=== PATIENT | female | born 1955 | race Caucasian/White ===

== ENCOUNTER 2023-10-19 13:02 | Outpatient (CLI) | payer MEDICARE, BC, SELFPAY ==
[2023-10-19 15:38] LABS: Absolute Lymphocyte Count 1.66 X10^3/uL (0.83-4.51); Absolute Neutrophil Count 5.2 X10^3/uL (2.0-7.7); Basophil# 0.04 X10^3/uL; Basophil% 0.5 % (0-1); Eosinophil# 0.04 X10^3/uL; Eosinophils% 0.5 % (0-5); Hematocrit 45.8 % (37-47); Hemoglobin 15.5 g/dL (12.0-15.0); Lymphocyte # 1.66 X10^3/ul (0.83-4.51); Mean Corp Hgb Conc 33.8 g/dL (32-36); Mean Corpuscular Hgb 32.2 pg (27.0-32.0); Mean Corpuscular Volume 95.2 fL (81-99); Mean Platelet Vol. 10.5 fl (6.2-12.0); Monocyte# 0.61 X10^3/uL; Monocyte% 8.1 % (0-10); NRBC Flagged by Analyzer 0 % (0-5); Neutrophil # 5.17 X10^3/uL (2.7-7.7); Neutrophil % 68.6 % (47-70); Platelet Count 293 K/mm3 (150-450); RBC Distribution Width CV 13.9 % (11.6-14.6); RBC Distribution Width SD 48.6 fl (35.1-43.9); Red Blood Count 4.81 M/mm3 (4.2-5.4); White Blood Count 7.5 K/mm3 (4.4-11.0)
[2023-10-19 15:56] LABS: Vitamin B12 582 pg/mL (211-911)
[2023-10-19 16:22] LABS: ALB/GLOB Ratio 1.1 RATIO (0.9-2.4); AST(SGOT) 28 U/L (15-37); Alanine Aminotransfer ALT/SGPT 71 U/L (13-56); Albumin, Serum 3.6 g/dL (3.2-5.0); Alkaline Phosphatase 174 U/L (45-117); Anion Gap 6 (5-15); BUN 9 mg/dL (7-18); BUN/Creat Ratio 16.6 RATIO (10-20); Calcium,Total 9.3 mg/dL (8.5-10.1); Chloride 105 mmol/L (98-107); Creatinine, Serum 0.54 mg/dL (0.55-1.02); EST Glomerular Filtration Rate 118 mL/min (>60); Est Glom Filt Rate - Afr Amer 143 mL/min (>60); Globulin 3.4 g/dL (2.2-4.2); Glucose 122 mg/dL (74-106); Sodium Level 139 mmol/L (136-145)
[2023-10-22 16:10] LABS: Lyme IgG P18 Ab Absent (.); Lyme IgG P23 Ab Absent (.); Lyme IgG P28 Ab Absent (.); Lyme IgG P30 Ab Absent (.); Lyme IgG P39 Ab Present (.); Lyme IgG P41 Ab Present (.); Lyme IgG P45 Ab Absent (.); Lyme IgG P58 Ab Present (.); Lyme IgG P66 Ab Absent (.); Lyme IgG P93 Ab Present (.); Lyme IgG WB Interpretation Negative (.); Lyme IgM P23 Ab Absent (.); Lyme IgM P39 Ab Absent (.); Lyme IgM P41 Ab Absent (.); Lyme IgM WB Interpretation Negative (.)
[2023-10-26 16:09] LABS: B. henselae IgG Negative titer (Neg:<1:320); B. henselae IgM Negative titer (Neg:<1:100); B. quintana IgG Negative titer (Neg:<1:320); B. quintana IgM Negative titer (Neg:<1:100); Mycoplasma Pneum AB IgG < 100 U/mL (0-99); Mycoplasma pneum. AB IgM < 770 U/mL (0-769); VITAMIN B6 2.5 ug/L (3.4-65.2); Vitamin B1, Thiamine 94.7 nmol/L (66.5-200.0)
== END 2023-10-19 23:59 | disposition home or self-care (01) ==
PROVIDERS: Referring Provider Nurse Practitioner Family; Visit Provider Nurse Practitioner Family
DX: A69.20 Lyme disease, unspecified (principal); B60.00 Babesiosis, unspecified; R41.89 Other symptoms and signs involving cognitive functions and awareness; R29.818 Other symptoms and signs involving the nervous system; R61 Generalized hyperhidrosis; R29.6 Repeated falls; R41.3 Other amnesia; R13.12 Dysphagia, oropharyngeal phase; G47.00 Insomnia, unspecified; F41.9 Anxiety disorder, unspecified; R51.9 Headache, unspecified; R53.0 Neoplastic (malignant) related fatigue; R63.4 Abnormal weight loss
CPT/HCPCS: 36415; 80053; 82607; 82746; 84207; 84425; 85025; 86611; 86617; 86738

== ENCOUNTER → 2024-03-02 | Outpatient (CLI) | payer MEDICARE, BC, SELFPAY ==
[2024-03-02 15:42] LABS: Absolute Lymphocyte Count 1.76 X10^3/uL (0.83-4.51); Basophil# 0.04 X10^3/uL; Basophil% 0.7 % (0-1); Eosinophils% 1.8 % (0-5); Hematocrit 44.2 % (37-47); Hemoglobin 14.7 g/dL (12.0-15.0); Lymphocyte # 1.76 X10^3/ul (0.83-4.51); Lymphocyte % 32.2 % (19-41); Mean Corp Hgb Conc 33.3 g/dL (32-36); Mean Corpuscular Hgb 32.1 pg (27.0-32.0); Mean Corpuscular Volume 96.5 fL (81-99); Mean Platelet Vol. 10.1 fl (6.2-12.0); Monocyte# 0.49 X10^3/uL; NRBC Flagged by Analyzer 0 % (0-5); Neutrophil # 3.03 X10^3/uL (2.7-7.7); Neutrophil % 55.4 % (47-70); Platelet Count 269 K/mm3 (150-450); RBC Distribution Width CV 13.2 % (11.6-14.6); RBC Distribution Width SD 47.1 fl (35.1-43.9); Red Blood Count 4.58 M/mm3 (4.2-5.4); White Blood Count 5.5 K/mm3 (4.4-11.0)
[2024-03-02 16:40] LABS: ALB/GLOB Ratio 0.9 RATIO (0.9-2.4); AST(SGOT) 21 U/L (15-37); Alanine Aminotransfer ALT/SGPT 37 U/L (13-56); Albumin, Serum 3.4 g/dL (3.2-5.0); Alkaline Phosphatase 169 U/L (45-117); Anion Gap 9 (5-15); BUN 12 mg/dL (7-18); BUN/Creat Ratio 20.4 RATIO (10-20); Calcium,Total 9.2 mg/dL (8.5-10.1); Chloride 109 mmol/L (98-107); Creatinine, Serum 0.59 mg/dL (0.55-1.02); EST Glomerular Filtration Rate 108 mL/min (>60); Est Glom Filt Rate - Afr Amer 130 mL/min (>60); Ferritin 112 ng/mL (8-252); Globulin 3.6 g/dL (2.2-4.2); Glucose 109 mg/dL (74-106); Iron 91 ug/dL (50-170); Potassium 3.6 mmol/L (3.5-5.1); Sodium Level 143 mmol/L (136-145)
[2024-03-06 16:07] LABS: G6PD Quant Test 253 (127-427); Red Blood Cell Count Test/G6PD 4.71 x10E6/uL (3.77-5.28)
== END | disposition home or self-care (01) ==
LOC: BIMLAB 13:20
PROVIDERS: Referring Provider Nurse Practitioner Family; Visit Provider Nurse Practitioner Family
DX: A69.20 Lyme disease, unspecified (principal); R41.89 Other symptoms and signs involving cognitive functions and awareness; A44.0 Systemic bartonellosis; B60.00 Babesiosis, unspecified
CPT/HCPCS: 36415; 80053; 82728; 82955; 83540; 85025

== ENCOUNTER 2024-03-14 12:15 | Outpatient (CLI) | payer MEDICARE, BC, SELFPAY ==
[2024-03-14 15:52] LABS: T4 Free Direct 1.15 ng/dL (0.76-1.46); Thyroid Stim Hormone (TSH) 2.79 uIU/mL (0.358-3.74)
[2024-03-14 17:02] LABS: Vitamin D,25 Hydroxy 25.8 ng/mL
[2024-03-14 17:06] LABS: PTHIN 78.8 pg/mL (18.4-80.1)
[2024-03-16 16:10] LABS: GGTP 26 IU/L (0-60); Thyroglobulin Antibody < 1.0 IU/mL (0.0-0.9); Thyroid Peroxidase AB 11 IU/mL (0-34)
[2024-03-18 11:08] LABS: ANTINUCLEAR ANTIBODIES DIRECT Negative (Negative); Vitamin D 1,25-Dihydroxy 40.6 pg/mL (24.8-81.5)
== END 2024-03-14 23:59 | disposition home or self-care (01) ==
LOC: BIMLAB 12:16
PROVIDERS: Visit Provider Nurse Practitioner Family
DX: R74.01 Elevation of levels of liver transaminase levels (principal); A69.20 Lyme disease, unspecified; B60.00 Babesiosis, unspecified; R41.89 Other symptoms and signs involving cognitive functions and awareness; A44.0 Systemic bartonellosis; E55.9 Vitamin D deficiency, unspecified
CPT/HCPCS: 36415; 82306; 82652; 82977; 83970; 84439; 84443; 84481; 86038; 86225; 86235; 86376; 86800

== ENCOUNTER → 2024-06-24 | Outpatient (CLI) | payer MEDICARE, BC, SELFPAY ==
[2024-06-24 10:43] VITALS: BP 158/90; PULSE 90; RESP 16; O2SAT 97; BMI 29.0
== END | disposition home or self-care (01) ==
PROVIDERS: PCP Nurse Practitioner Family; Referring Provider Nurse Practitioner Family; Visit Provider Nurse Practitioner Family
DX: A44.0 Systemic bartonellosis (principal); B60.00 Babesiosis, unspecified; A69.22 Other neurologic disorders in Lyme disease
CPT/HCPCS: 36569

== ENCOUNTER → 2024-12-15 | Outpatient (CLI) | payer MEDICARE, BC, SELFPAY ==
[2024-12-15 16:43] LABS: Absolute Lymphocyte Count 1.99 X10^3/uL (0.83-4.51); Absolute Neutrophil Count 5.1 X10^3/uL (2.0-7.7); Basophil# 0.04 X10^3/uL; Basophil% 0.5 % (0-1); Eosinophil# 0.11 X10^3/uL; Eosinophils% 1.3 % (0-5); Lymphocyte # 1.99 X10^3/ul (0.83-4.51); Lymphocyte % 24.4 % (19-41); Mean Corp Hgb Conc 34.1 g/dL (32-36); Mean Corpuscular Hgb 32.3 pg (27.0-32.0); Mean Corpuscular Volume 94.6 fL (81-99); Mean Platelet Vol. 10.3 fl (6.2-12.0); Monocyte# 0.93 X10^3/uL; Monocyte% 11.4 % (0-10); NRBC Flagged by Analyzer 0 % (0-5); Neutrophil # 5.07 X10^3/uL (2.7-7.7); Neutrophil % 62.2 % (47-70); Platelet Count 316 K/mm3 (150-450); RBC Distribution Width CV 13.7 % (11.6-14.6); RBC Distribution Width SD 47.7 fl (35.1-43.9); Red Blood Count 4.65 M/mm3 (4.2-5.4); White Blood Count 8.2 K/mm3 (4.4-11.0)
[2024-12-15 17:58] LABS: ALB/GLOB Ratio 1.5 RATIO (0.9-2.4); AST(SGOT) 21 U/L (<=31); Alanine Aminotransfer ALT/SGPT 20 U/L (<=34); Albumin, Serum 4.1 g/dL (3.4-4.8); Alkaline Phosphatase 226 U/L (35-104); Anion Gap 12 (5-15); BUN 17 mg/dL (4-19); BUN/Creat Ratio 27.9 RATIO (10-20); Calcium,Total 9.8 mg/dL (7.6-11.0); Carbon Dioxide 22.7 mmol/L (21.0-32.0); Chloride 108 mmol/L (98-108); Creatinine, Serum 0.61 mg/dL (0.70-1.20); EST Glomerular Filtration Rate 96 (>60); Globulin 2.8 g/dL (2.2-4.2); Glucose 108 mg/dL (70-99); Potassium 4.4 mmol/L (3.3-5.1); Protein, Total 6.8 g/dL (5.9-8.4); Sodium Level 143 mmol/L (133-145); Total Bilirubin 0.38 mg/dL (0.00-1.30)
[2024-12-15 18:59] LABS: CRP < 3.00 mg/L (0.0-3.0); Vitamin B12 456 pg/mL (180-914); Vitamin D,25 Hydroxy 12.8 ng/mL (30-100)
[2024-12-15 19:12] LABS: FOLATES,SERUM (FOLIC ACID) > 40.00 ng/mL (4.60-34.80)
[2024-12-15 20:37] LABS: Fibrinogen 394 mg/dl (203-444)
[2024-12-17 04:07] LABS: HOMOCYSTEINE 12.2 umol/L (0.0-17.2)
== END | disposition home or self-care (01) ==
LOC: BIMLAB 14:50
PROVIDERS: PCP Nurse Practitioner Family; Visit Provider Nurse Practitioner Family
DX: R63.4 Abnormal weight loss (principal); A69.20 Lyme disease, unspecified; R51.9 Headache, unspecified; R41.841 Cognitive communication deficit; R41.89 Other symptoms and signs involving cognitive functions and awareness; R44.3 Hallucinations, unspecified
CPT/HCPCS: 36415; 80053; 82306; 82607; 82746; 82784; 82785; 82787; 83090; 83695; 85025; 85384; 86140; 86658

== ENCOUNTER → 2025-04-11 | Outpatient (CLI) | payer MEDICARE, BC, SELFPAY ==
[2025-04-11 12:14] LABS: Mucous, Urine 0 SEEN /hpf (<or=2+); Red Blood Cells-Urine 0 SEEN /hpf (0-5)
[2025-04-11 12:42] LABS: Hematocrit 45.3 % (37-47); Hemoglobin 15.7 g/dL (12.0-15.0); Immature Granulocytes Count 0.020 X10^3/uL (0.0-0.0); Mean Corp Hgb Conc 34.7 g/dL (32-36); Mean Corpuscular Volume 95.0 fL (81-99); Mean Platelet Vol. 9.8 fl (6.2-12.0); NRBC Flagged by Analyzer 0 % (0-5); Platelet Count 258 K/mm3 (150-450); RBC Distribution Width CV 13.2 % (11.6-14.6); RBC Distribution Width SD 46.3 fl (35.1-43.9); Red Blood Count 4.77 M/mm3 (4.2-5.4); White Blood Count 6.5 K/mm3 (4.4-11.0)
[2025-04-11 13:28] LABS: AST(SGOT) 24 U/L (<=31); Alanine Aminotransfer ALT/SGPT 20 U/L (<=34); Albumin, Serum 3.9 g/dL (3.4-4.8); Alkaline Phosphatase 211 U/L (35-104); Anion Gap 12 (5-15); BUN 12 mg/dL (4-19); BUN/Creat Ratio 22.2 RATIO (10-20); Calcium,Total 9.5 mg/dL (7.6-11.0); Carbon Dioxide 22.0 mmol/L (21.0-32.0); Chloride 106 mmol/L (98-108); Globulin 2.9 g/dL (2.2-4.2); Glucose 112 mg/dL (70-99); Potassium 4.2 mmol/L (3.3-5.1)
[2025-04-11 14:16] LABS: Color, Urine Yellow (Yellow); Glucose, Dipstick Normal (Normal); Ketone-Dipstick 5 mg/dl (Negative); Leukocyte Esterase-Dipstick 500 /ul (Negative); Nitrite-Dipstick Positive (Negative); Occult Blood-Urine 25 /ul (Negative); Protein-Dipstick 30 mg/dl (Negative); Specific Gravity, Urine 1.025 (1.002-1.030); Urine Bilirubin Dipstick Negative (Negative)
[2025-04-11 14:33] LABS: Squamous Epithelial Cells - UA 5-10 SEEN /hpf (5-10)
--- OUTSIDE RECORDS SUMMARY | 2025-04-11 22:14 | XMS RPT_ITS | CCD ---
Author Organization [facility] Care Team Providers Care Outbound Sales Representative Name Role Phone Carmela Rossi Unavailable Hilty, Francine Primary Care Provider Hilty INTERNAL MEDICINE NURSE PRACTITIONER, Francine Primary Care Provider Hilty INTERNAL MEDICINE NURSE PRACTITIONER, Francine Primary Care Provider [phone] HILTY, FRANCINE Primary Care Unavailable VILMA ZHAO Attending Unavailabl e Hilty INTERNAL MEDICINE NURSE PRACTITIONER, Francine Primary Care Provider [phone] Tomas RNNitza Unavailable Unavailable Tomas GOYAL, Nitza New Unavailable Unavailable Hilty INTERNAL MEDICINE NURSE PRACTITIONER, Francine Primary Care Provider [phone] Hilty INTERNAL MEDICINE NURSE PRACTITIONER, Francine Primary Care Provider GERALDINE VELARDE Attending Unavailabl e HILTY, FRANCINE Primary Care Unavailable ERNA ROMERO Attending Unavailabl e HILTY, FRANCINE Primary Care Unavailable SYSTEM, PROVIDER NOT IN Referring Unavaila ble SYSTEM, PROVIDER NOT IN Attending Unavaila ble HILTY, FRANCINE Primary Care Unavailable HILTY, FRANCINE Primary Care Unavailable AMAYA CHING Attending Unavailable KRYS LUCERO Attending Unavailable HILTY, FRANCINE Primary Care Unavailable HILTY, FRANCINE Primary Care Unavailable KRYS LUCERO Attending Unavailable KRYS LUCERO Attending Unavailable HILTY, FRANCINE Primary Care Unavailable HILTY, FRANCINE Primary Care Unavailable FABIÁN RODRIGUEZ Consulting Unavaila ble ALBERTA WANG Attending Unavail able ALBERTA WANG Admitting Unavail able LEILANI LOWE Consulting Unavailable HILTY, FRANCINE Primary Care Unavailable HILTY, FRANCINE Admitting Unavailable MARKUS FERRARO Admitting Unavailable MARKUS EFRRARO Attending Unavailable MARKUS FERRARO Primary Care Unavailable ORLANDOENER, KRYS BALDOMERO Admitting Unavailable MICHENER, KRYS BALDOMERO Attending Unavailable MICHENER, KRYS INTERNAL MEDICINE NURSE PRACTITIONER Primary Care Unavailable BETSY FARR Attending Unavailable HILTY, FRANCINE Primary Care Unavailable MICHENER, KRYS Referring Unavailable ALBERTA WANG Referring Unavail able HILTY, FRANCINE Primary Care Unavailable Alcantar PA-C, Dominique Blanchard Primary Care Provider Hilty INTERNAL MEDICINE NURSE PRACTITIONER, Francine Primary Care Provider HRINA FARNSWORTH Attending Unavailable HILTY, FRANCINE Primary Care Unavailable RIGO GRAVES Attending Unavailable ALCANTAR, DOMINIQUE FULLER Primary Care Unavailable HILTY, FRANCINE Primary Care Unavailable HILTY, FRANCINE Attending Unavailable ALCANTAR, DOMINIQUE FULLER Attending Unavailable ALCANTAR, DOMINIQUE FULLER Primary Care Unavailable HILTY, FRANCINE Primary Care Unavailable HILTY, FRANCINE Attending Unavailable HILTY, FRANCINE Primary Care Unavailable HILTY, FRANCINE Attending Unavailable HILTY, FRANCINE Primary Care Unavailable HILTY, FRANCINE Attending Unavailable HILTY, FRANCINE Primary Care Unavailable HILTY, FRANCINE Attending Unavailable ALCANTAR, DOMINIQUE FULLER Primary Care Unavailable ALCANTAR, DOMINIQUE FULLER Attending Unavailable ALCANTAR, DOMINIQUE FULLER Attending Unavailable ALCANTAR, DOMINIQUE FULLER Primary Care Unavailable ALCANTAR, DOMINIQUE FULLER Attending Unavailable ALCANTAR, DOMINIQUE FULLER Primary Care Unavailable HILTY, FRANCINE Referring Unavailable HILTY, FRANCINE Admitting Unavailable HILTY, FRANCINE Primary Care Unavailable SAI MARIE Attending Unavailable HILTY, FRANCINE Referring Unavailable HILTY, FRANCINE Admitting Unavailable HILTY, FRANCINE Primary Care Unavailable YOAV ADAME Attending [facility] Physician, No Pcp Primary Care Provider Unavaila ble Gittins DO, Jori Unavailable Unavailable Gittins DO, Jori Unavailable Unavailable Carmela Rossi MD Primary Care Provider [phone] Gittins DO, Jori Unavailable Unavailable AD DO~[id number], AD Martines Attending Unavailable DECLINED, DR Primary Care Unavailable DECLINED, DR Consulting Unavailable AD DO~[id number], AD Martines Admitting Unavailable DECLINED, Consulting Unavailable ADWINNIE KNOX DO Consulting Unavailable AD WINNIE FLORENTINO Consulting Unavailable NONE, NONE Primary Care Unavailable NONE, NONE Consulting Unavailable JAILENE PENA~[id number], JAILENE Echavarria Admitting Unavailable JAILENE PENA~[id number], JAILENE Echavarria Attending Unavailable DECLINED, DR Consulting Unavailable TAYLOR REED POLISHER, SAM Consulting Unavailab le TAYLOR REED POLISHER, SAM Consulting Unavailab le Jori Arana DO Unavailable Unavailable Gittins, Jori Echavarria Attending Unavailable Gittins, Jori Echavarria Referring Unavailable Gittins, Jori Echavarria Attending Unavailable Gittins, Jori Echavarria Referring Unavailable Gittins, Jori Echavarria Attending Unavailable Gittins, Jori Echavarria Referring Unavailable Gittins, Jori Echavarria Attending Unavailable Gittins, Jori Echavarria Referring Unavailable Gittins, Jori Echavarria Attending Unavailable Gittins, Jori Echavarria Referring Unavailable Gittins, Jori Echavarria Attending Unavailable Gittins, Jori Echavarria Referring Unavailable Gittins, Jori Echavarria Attending Unavailable Gittins, Jori Echavarria Referring Unavailable Gittins, Jori Echavarria Attending Unavailable Gittins, Jori Echavarria Referring Unavailable Gittins, Jori Echavarria Attending Unavailable Gittins, Jori Echavarria Referring Unavailable Gittins, Jori Echavarria Attending Unavailable Gittins, Jori Echavarria Referring Unavailable Gittins, Jori Echavarria Attending Unavailable Gittins, Jori Echavarria Referring Unavailable Jazmine LANDSCAPE FOREMAN-C, Krys K Primary Care Provider Un available Jazmine LANDSCAPE FOREMAN-C, Krys K Attending Provider Unava ilable PHYSICIAN, NO PCP Primary Care Unavailable ÓSCAR CARVALHO Attending Unavailable PHYSICIAN, NO PCP Primary Care Unavailable Jazmine LANDSCAPE FOREMAN, Krys K Attending Unavailabl e Jazmine LANDSCAPE FOREMAN, Krys K Referring Unavailabl e Jazmine LANDSCAPE FOREMAN, Krys K Attending Unavailabl e Jazmine LANDSCAPE FOREMAN, Krys K Primary Care Unavailabl e Jazmine LANDSCAPE FOREMAN, Krys K Attending Unavailabl e Jazmine LANDSCAPE FOREMAN, Krys K Referring Unavailabl e Jazmine LANDSCAPE FOREMAN, Krys K Attending Unavailabl e Jazmine LANDSCAPE FOREMAN, Krys K Primary Care Unavailabl e Cherri REED POLISHER-INTERNAL MEDICINE NURSE PRACTITIONER, Bhakti Brunson Primary Care Provider LYNDA VEGA Attending Unavailable HILALAN, FRANCINE Primary Care Unavailable LYNDA VEGA Referring Unavailable HILALAN, FRANCINE Primary Care Unavailable ALLISON ALLEN Referring Unavailable ALLISON ALLEN Attending Unavailable SELF, SELF Referring Unavailable HILALAN, FRANCINE Primary Care Unavailable LYNDA VEGA Attending Unavailable HILTY, FRANCINE Primary Care Unavailable LYNDA VEGA Referring Unavailable LYNDA VEGA Attending Unavailable HILTY, FRANCINE Primary Care Unavailable ALLISON ALLEN Referring Unavailable ALLISON ALLEN Attending Unavailable CONSULT, OTOLARYNGOLOGY/ENT Consulting Unav ailable KAUSHAL GREGORY Attending Unavailable HILTY, FRANCINE Primary Care Unavailable CONSULT, NEUROLOGY Consulting Unavailable GREY LINTON Attending Unavailable HILTY, FRANCINE Primary Care Unavailable HILTY, FRANCINE Primary Care Unavailable ALLISON ALLEN Attending Unavailable SELF, SELF Referring Unavailable HILTY, FRANCINE Primary Care Unavailable SELF, SELF Referring Unavailable JOE HERNANDES Attending Unavailable CHERRI, BHAKTI N Attending Unavailable CHERRI, BHAKTI N Primary Care Unavailable SELF, SELF Referring Unavailable ALLISON ALLEN Attending Unavailable SELF, SELF Referring Unavailable HILTY, FRANCINE Primary Care Unavailable SELF, SELF Referring Unavailable HILTY, FRACNINE Primary Care Unavailable KITA GARZA Attending Unavailable SELF, SELF Referring Unavailable HILTY, FRANCINE Primary Care Unavailable CHERRI, BHAKTI N Primary Care Unavailable SELF, SELF Referring Unavailable HILTY, FRANCINE Primary Care Unavailable ADELITA ROGEL Attending Unavailable SELF, SELF Referring Unavailable RHINA RAMIREZ Attending Unavailable SELF, SELF Referring Unavailable HILTY, FRANCINE Primary Care Unavailable LEATHA NGUYỄN K Referring Unavailable HILTY, FRANCINE Primary Care Unavailable ADRIAN JEAN Attending Unavailable SELF, SELF Referring Unavailable HILTY, FRANCINE Primary Care Unavailable ADRIAN JEAN Attending Unavailable SELF, SELF Referring Unavailable HILTY, FRANCINE Primary Care Unavailable ADRIAN EJAN Attending Unavailable Allergies Allergy Classification Reported Allergen(s) Allergy Type Date of Onset Reaction(s) Facility Aspirin (1 source) Aspirin Drug Allergy Shortness Of Breath [facility] Doxycycline (1 source) Doxycycline Drug Allergy Shortness Of Breath, Itching, Swelling, Rash [facility] Quinolones (antibiotic) (1 source) Ciprofloxacin Drug Allergy Hives [facility] Sulfamethoxazole / Trimethoprim (1 source) Sulfamethoxazole / Trimethoprim Drug Allergy Hives [facility] (20 sources) ciprofloxacin; Translations: [CIPROFLOXACIN] Propensity to adverse reactions to drug Hives, Dyspnea, Shortness Of Breath [facility] (20 sources) sulfamethoxazole / trimethoprim; Translations: [SULFAMETHOXAZOLE-T RIMETHOPRIM] Propensity to adverse reactions to drug Hives, Itching, Rash [facility] (20 sources) Aspirin; Translations: [ASPIRIN] Drug Allergy Shortness Of Breath [facility] (20 sources) Doxycycline; Translations: [DOXYCYCLINE] Drug Allergy Shortness Of Breath, Itching, Swelling, Rash, Dizzy/Vertigo [facility] (19 sources) Sulfamethoxazole / Trimethoprim Drug Allergy [facility] (11 sources) Sulfonamides (Antibiotic); Translations: [SULFA (SULFONAMIDE ANTIBIOTICS)] Propensity to adverse reactions to drug Unknown [facility] (4 sources) Sulfonamides (Antibiotic); Translations: [Sulfa (Sulfonamide Antibiotics)] propensity to adverse reactions to drug [facility] (1 source) Ciprofloxacin Drug Allergy [facility] (1 source) Sulfamethoxazole Drug Allergy Itching [facility] (1 source) Trimethoprim Drug Allergy Itching [facility] (1 source) Ciprofloxacin Drug Allergy 024 [facility] (1 source) Sulfamethoxazole Drug Allergy 024 [facility] (1 source) Trimethoprim Drug Allergy 024 [facility] Medications Current Medications Medication Drug Class(es) Dates Sig (Normalized) Sig (Original) amoxicillin 875 mg oral tablet (2 sources) Penicillin-class Antibacterial Start: 07-20-2024 End: 07-30-2024 take 1 tablet by mouth every twelve hours amoxicillin 875 MG tablet Take 1 tablet by mouth every 12 hours for 10 days. 20 tablet 07/20/2024 07/30/2024 Active Start: 09-10-2023 take 4 capsules by m outh twice daily amoxicillin (AMOXIL) 500 MG capsule TAKE 4 CAPSULE BY MOUTH TWICE A DAY 0 09/10/2023 Active amoxicillin 875 mg / clavulanate 125 mg oral tablet (2 sources) Penicillin-class Antibacterial Start: 08-08-2024 End: 08-18-2024 take 1 tablet by mouth twice daily amoxicillin-clavulanate (AUGMENTIN) 875-125 mg per tablet Take 1 (one) tablet by mouth 2 (two) times a day for 10 days . 20 tablet 08/08/2024 08/18/2024 Active azithromycin 250 mg oral tablet (20 sources) Macrolide Antimicrobial Start: 09-05-2024 End: 09-10-2024 Azithromycin 250 MG tablet Take by mouth 2 tablets (500 mg) on Day 1, then 1 tablet (250 mg) daily on Days 2-5 6 tablet 09/05/2024 09/10/2024 Active Start: 07-13-2024 End: 09-27-2024 Azithromycin 500 MG Recon So ln 07/13/2024 09/27/2024 Discontinued take 1 tablet by dari th once daily AZITHROMYCIN ORAL Take 1 tablet by mouth daily . Active take 1 tablet by dari th once daily AZITHROMYCIN ORAL Take 1 tablet by mouth daily . 0 Active cefdinir 300 mg oral capsule (3 sources) Cephalosporin Antibacterial Start: 10-15-2021 End: 10-22-2021 take 1 capsule by mouth twice daily cefdinir (OMNICEF) 300 MG capsule Take 1 (one) capsule (300 mg total) by mouth 2 (two) times a day for 7 days . 14 capsule 1 10/15/2021 10/22/2021 Active Start: 10-26-2020 End: 11-05-2020 take 1 capsule by mouth twice daily cefdinir (OMNICEF) 300 MG capsule Indications: Urinary tract infection without hematuria, site unspecified Take 1 (one) capsule (300 mg total) by mouth 2 (two) times a day for 10 days . 20 capsule 0 10/26/2020 11/05/2020 Active cephalexin 500 mg oral capsule (20 sources) Cephalosporin Antibacterial Start: 12-18-2024 End: 12-25-2024 take 1 capsule by mouth four times daily cephalexin (KEFLEX) 500 mg capsule Take 1 capsule (500 mg total) by mouth 4 (four) times a day for 7 days. 28 each 12/18/2024 12/25/2024 Active Start: 07-30-2021 End: 08-06-2021 take 1 capsule by mouth four times daily cephALEXin (KEFLEX) 500 MG capsule Take 1 (one) capsule (500 mg total) by mouth 4 (four) times a day for 7 days . 28 capsule 0 07/30/2021 08/06/2021 Active take 1 tablet by dari th once daily CEPHALEXIN ORAL Take 1 tablet by mouth daily . Active take 1 tablet by dari once daily CEPHALEXIN ORAL Take 1 tablet by mouth daily . 0 Active ciprofloxacin 3 mg/ml / dexamethasone 1 mg/ml otic suspension (1 source) Corticosteroid, Quinolone Antimicrobial Start: 09-12-2018 End: 09-19-2018 ciprofloxacin-dexamethasone (CIPRODEX) otic suspension Administer 4 (four) drops to the right ear 2 (two) times a day for 7 days . 7.5 mL 0 09/12/2018 09/19/2018 Active citalopram 10 mg oral tablet (20 sources) Serotonin Reuptake Inhibitor Start: 11-07-2023 End: 12-07-2023 take 1 tablet by mouth once daily citalopram (CELEXA) 10 MG tablet Take 1 (one) tablet (10 mg total) by mouth daily . 30 tablet 2 11/11/2023 Active diclofenac sodium 0.01 mg/mg topical gel (8 sources) Nonsteroidal Anti-inflammator y Drug Start: 08-11-2023 Voltaren Arthritis Pain 1 % topical gel apply 2 gram topically 4 times every day to the affected area(s) - Active DISABILITY PLACARD (1 source) Start: 04-03-2025 End: 04-03-2026 DISABILITY PLACARD Indications: Dizziness , Hx of Lyme disease Start: 04/03/2025 Exp: 04/03/2026 1 Each 04/03/2025 04/03/2026 Active [id number] 0.3 ml EPINEPHrine 1 mg/ml auto-injector (20 sources) alpha-Adrenergic Agonist, beta-Adrenergic Agonist, Catecholamine Start: 10-29-2023 EPINEPHrine (EPIPEN) 0.3 mg/0.3 mL AtIn Indications: anaphylaxis USE DIRECTED NEEDED FOR ALLERGIC REACTION 10/29/2023 Active Handicapped Placard (4 sources) Start: 04-14-2023 Handicapped Placard USE 1 each for 3 months - Active DX - M70.61 Comment on above: DX - M70.61 meclizine hydrochloride 25 mg oral tablet (1 source) Antiemetic Start: 04-03-2025 take 1 tablet by mouth three times daily as needed for nausea Meclizine 25 MG tablet Indications: Dizziness Take 1 tablet by mouth 3 times daily as needed for Nausea / Vomiting. 270 tablet 04/03/2025 Active meloxicam 15 mg oral tablet (4 sources) Nonsteroidal Anti-inflammator y Drug Start: 06-30-2022 take 1 tablet by mouth once daily meloxicam 15 mg tablet take 1 tablet by oral route every day 15 MG - Active methylPREDNISolone 4 mg oral tablet (4 sources) Corticosteroid Start: 04-14-2023 Medrol (Juliocesar) 4 mg tablets in a dose pack take by oral route as directed per package instructions 0.00 - Active nystatin [id number] unt oral tablet (1 source) Polyene Antifungal Start: 09-09-2023 nystatin (MYCOSTATIN) 500,000 unit tablet omeprazole 40 mg delayed release oral capsule (1 source) Proton Pump Inhibitor Start: 12-18-2024 End: 12-28-2024 take 1 capsule by mouth once daily omeprazole (PriLOSEC) [address] capsule Take 1 capsule (40 mg total) by mouth 1 (one) time each day for 10 days. Do not crush or chew. 10 each 12/18/2024 12/28/2024 Active ondansetron 4 mg disintegrating oral tablet (4 sources) Serotonin-3 Receptor Antagonist Start: 12-18-2024 End: 12-23-2024 apply 1 tablet topically every eight hours for nausea ondansetron ODT (ZOFRAN-ODT) 4 mg disintegrating tablet Indications: Abdominal pain, epigastric , Nausea and vomiting, unspecified vomiting type , Urinary tract infection without hematuria, site unspecified Dissolve 1 tablet (4 mg total) on top of the tongue every 8 (eight) hours if needed for nausea for up to 5 days. 15 each 12/18/2024 12/23/2024 Active Start: 12-18-2024 End: 12-18-2024 4 mg, intravenous, Once, On Thu12/18/24 at 0043, For 1 dose Start: 09-28-2024 End: 09-28-2024 take 4 mg by mouth once 4 mg, oral, Once, On 09/14 at 1859, For 1 dose Start: 09-28-2024 End: 10-03-2024 apply 1 tablet topically every eight hours for nausea ondansetron ODT (ZOFRAN-ODT) 4 mg disintegrating tablet Indications: Closed displaced fracture of cuboid of left foot, initial encounter Dissolve 1 tablet (4 mg total) on top of the tongue every 8 (eight) hours if needed for nausea or vomiting for up to 5 days. 15 tablet 09/28/2024 10/03/2024 Active prednisoLONE acetate 10 mg/ml ophthalmic suspension (2 sources) Corticosteroid Start: 09-25-2020 End: 10-05-2020 prednisoLONE acetate (PRED FORTE) 1 % ophthalmic suspension Administer 1 (one) drop to the right eye 4 (four) times a day for 10 days . 5 mL 0 09/25/2020 10/05/2020 Active Start: 09-11-2020 End: 09-21-2020 prednisoLONE acetate (PRED F ORTE) 1 % ophthalmic suspension Administer 1 (one) drop into the left eye 4 (four) times a day for 10 days . 5 mL 0 09/11/2020 09/21/2020 Active QUEtiapine 50 mg oral tablet (20 sources) Atypical Antipsychotic Start: 11-11-2023 End: 11-11-2023 take 1 tablet by mouth once daily QUEtiapine (SEROQUEL) 50 MG tablet Take 1 (one) tablet (50 mg total) by mouth nightly . 30 tablet 2 11/11/2023 Active Start: 11-06-2023 End: 12-06-2023 take 1 tablet by mouth once daily QUEtiapine (SEROQUEL) 25 MG tablet Take 1 (one) tablet (25 mg total) by mouth nightly . 30 tablet 0 11/06/2023 11/11/2023 Discontinued sertraline 50 mg oral tablet (4 sources) Serotonin Reuptake Inhibitor Start: 08-08-2024 End: 08-08-2025 take 1 tablet by mouth once daily sertraline (ZOLOFT) 50 MG tablet Take 1 (one) tablet (50 mg total) by mouth daily . 30 tablet 3 08/08/2024 08/08/2025 Active Completed/Discontinued Medications Medication Drug Class(es) Dates Sig (Normalized) Sig (Original) acetaminophen 325 mg oral tablet (1 source) Start: 03-07-2025 End: 03-07-2025 take 1 tablet by mouth every six hours as needed 650 mg, Oral, EVERY 6 HOURS NEEDED, Starting on Thu03/07/25 at 0111, Until Thu03/07/25 at 1855, Mild Pain, Oral temp > 100.4 F, Headaches, Maximum dose of acetaminophen is 4000 mg from all sources in 24 hours. acetaminophen 325 mg / HYDROcodone bitartrate 5 mg oral tablet (2 sources) Opioid Agonist Start: 09-28-2024 End: 09-28-2024 take 1 tablet by mouth once 1 tablet, oral, Once, On Thu09/28/24 at 1859, For 1 dose Start: 09-28-2024 End: 10-01-2024 HYDROcodone-acetaminophen (N ORCO) 5-325 mg per tablet Indications: Closed displaced fracture of cuboid of left foot, initial encounter Take 1 tablet by mouth every 6 (six) hours if needed for severe pain for up to 3 days. NO DRIVING OR OPERATING HEAVY MACHINERY WHILE TAKING THIS MEDICATION. Max Daily Amount: 4 tablets 12 tablet 09/28/2024 10/01/2024 Active aluminum hydroxide 40 mg/ml / magnesium hydroxide 40 mg/ml / simethicone 4 mg/ml oral suspension (2 sources) Start: 03-07-2025 End: 03-07-2025 take 30 mL by mouth every six hours as needed 30 mL, Oral, EVERY 6 HOURS NEEDED, Starting on Thu03/07/25 at 0110, Until Thu03/07/25 at 1855, Indigestion, Per 5 mL is equivalent to: (Alum-Mag Hydroxide 200-225 mg and Simethicone 20 mg) and (Alum-Mag Hydroxide 200-200 mg and Simethicone 20 mg) Start: 12-18-2024 take 15 mL by mouth four times daily aluminum-magnesium hydroxide-simethicone (MAALOX) 200-200-20 mg/5 mL suspension Take 15 mL by mouth 4 (four) times a day if needed for indigestion or cramping (before meals). 118 mL 12/18/2024 Active atovaquone 150 mg/ml oral suspension (9 sources) Antimalarial, Antiprotozoal Start: 10-24-2024 End: 04-06-2025 take 5 mL by mouth twice daily atovaquone 750 MG/5ML Suspension oral suspension Take 5 mL by mouth 2 times daily. 10/24/2024 04/06/2025 Discontinued (Therapy completed) Start: 10-02-2023 take 5 mL by mouth twice daily atovaquone (MEPRON) 750 mg/5 mL suspension TAKE 5 MLS BY MOUTH TWICE A DAY 0 10/02/2023 Active atovaquone 250 mg / proguanil hydrochloride 100 mg oral tablet (1 source) Antimalarial, Antiprotozoal Start: 03-07-2025 End: 03-07-2025 take 2 tablets by mouth twice daily at mealtime, then take 1 tablet by mouth every hour 2 tablet, Oral, 2 TIMES DAILY WITH MEALS, First dose on Thu03/07/25 at 0800, Until Discontinued, If vomiting occurs within 1 hour of administration, dose should be repeated. Tablets may be crushed. calcium chloride 0.0014 meq/ml / potassium chloride 0.004 meq/ml / sodium chloride 0.103 meq/ml / sodium lactate 0.028 meq/ml injectable solution (2 sources) Start: 09-25-2020 End: 09-25-2020 take 50 mL intravenous route every hour 50 mL/hr, Intravenous, Continuous, Starting Thu09/25/20 at 1000, Pre-Procedure Start: 09-11-2020 End: 09-11-2020 take 50 mL intravenous route every hour 50 mL/hr, Intravenous, Continuous, Starting Thu09/11/20 at 0700, Pre-Procedure cefepime 2000 mg injection (4 sources) Cephalosporin Antibacterial Start: 08-26-2024 End: 11-15-2024 ceFEPIme 2 g [facility] 08/26/2024 11/15/2024 Discontinued cefTRIAXone 100 mg/ml injectable solution (20 sources) Cephalosporin Antibacterial Start: 07-12-2024 End: 09-27-2024 cefTRIAXone 10 g [facility] 07/12/2024 09/27/2024 Discontinued Start: 04-19-2024 End: 04-18-2024 2 g, Intravenous, Daily, [facility] dose on Thu04/19/24 at 0600 Start: 04-17-2024 End: 04-16-2024 2 g, Intravenous, Daily, [facility] dose on Thu04/17/24 at 0600 Start: 04-17-2024 End: 04-16-2024 2 g, Intravenous, Daily, [facility] dose on Thu04/17/24 at 0600 Start: 04-17-2024 End: 04-16-2024 2 g, Intravenous, Daily, [facility] dose on 04/17/24 at 0600 Start: 04-17-2024 End: 04-16-2024 2 g, Intravenous, Daily, [facility] dose on 04/17/24 at 0600 Start: 04-17-2024 End: 04-16-2024 2 g, Intravenous, Daily, [facility] dose on 04/17/24 at 0600 Start: 04-17-2024 End: 04-16-2024 2 g, Intravenous, Daily, [facility] dose on 04/17/24 at 0600 Start: 04-16-2024 cefTRIAXone 2 gram SolR Infuse 2 g into a venous catheter once daily. 04/16/2024 Active End: 11-28-2019 inject 2000 mg by intramuscular injection every twenty-four hours cefTRIAXone IM (ROCEPHIN) 350 mg/ml injection Inject 2,000 mg into the shoulder, thigh, or buttocks daily. 0 11/28/2019 Discontinued (Therapy completed) take 2000 mg by intr amuscular injection every twenty-four hours cefTRIAXone IM (ROCEPHIN) 350 mg/ml injection Inject 2,000 mg into the shoulder, thigh, or buttocks daily. Active cefTRIAXone (ROCEPHIN) IV syringe 1 g (1 source) Start: 12-18-2024 End: 12-18-2024 1 g, intravenous, Administer over 3 Minutes, Once, On 12/18/24 at 0233, For 1 dose, Do not administer simultaneously with any calcium containing solutions via a Y-site in any patient., Indication: Urinary Tract/Genitourinary cefuroxime 500 mg oral tablet (8 sources) Cephalosporin Antibacterial Start: 10-24-2024 End: 04-03-2025 take 1 tablet by mouth twice daily cefUROXime 500 MG tablet Take 1 tablet by mouth 2 times daily. 10/24/2024 04/03/2025 Discontinued (Therapy completed) cholestyramine resin 4000 mg powder for oral suspension (9 sources) Bile Acid Sequestrant Start: 10-24-2024 End: 04-06-2025 Cholestyramine 4 GM/DOSE Powder MIX 4 GRAMS IN BEVERAGE AND DRINK FOUR TIMES DAILY 10/24/2024 04/06/2025 Discontinued (Therapy completed) Start: 10-02-2023 cholestyramine (QUESTRAN) 4 gram powder MIX 4 GRAMS IN BEVERAGE AND DRINK TWICE DAILY 0 10/02/2023 Active 24 hr clarithromycin 500 mg extended release oral tablet (5 sources) Macrolide Antimicrobial Start: 06-10-2012 End: 07-20-2024 CLARITHROMYCIN XL 500 MG PO tab XL 2 times daily. 06/10/2012 07/20/2024 Discontinued (Therapy completed) clotrimazole 10 mg/ml topical solution (3 sources) Azole Antifungal Start: 09-27-2024 End: 11-15-2024 clotrimazole 1 % Solution Indications: Otomycosis Instill 5 drops into both ears twice daily x 14 days. 15 mL 09/27/2024 11/15/2024 Discontinued codeine phosphate 2 mg/ml / guaiFENesin 20 mg/ml oral solution (5 sources) Opioid Agonist Start: 09-05-2024 End: 11-15-2024 take 5 mL by mouth every six hours as needed for cough guaiFENesin-codeine 100-10 MG/5ML Solution Indications: Acute cough , Bronchitis Take 5 mL by mouth every 6 hours as needed for Cold Symptoms or Cough for up to 7 days. 118 mL 09/05/2024 11/15/2024 Discontinued CUSTOM MEDICATION (10 sources)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 Differential Normal [facility] Comment on above: Performed By: #### C PAUL, CMPN, CRP #### [facility] (DEFAULT) [address] [place] [address] 18111 Eosinophils (Bld) [#/Vol] 0.21 10*3/uL Normal 0.00-0.42 [facility] Comment on above: Performed By: #### C PAUL, CMPN, CRP #### [facility] (DEFAULT) [address] [place] [address] 19948 Eosinophils/100 WBC (Bld) 3.5 % Normal [facility] Comment on above: Performed By: #### C PAUL, CMPN, CRP #### [facility] (DEFAULT) [address] [place] [address] 52927 Hematocrit (Bld) [Volume fraction] 45.8 % High 34.9-44.3 [facility] Comment on above: Performed By: #### C PAUL, CMPN, CRP #### [facility] (DEFAULT) [address] [place] [address] 50675 Hemoglobin (Bld) [Mass/Vol] 15.4 g/dL High 11.4-15.2 [facility] Comment on above: Performed By: #### C PAUL, CMPN, CRP #### [facility] (DEFAULT) [address] [place] [address] 60395 Immature Grans % 0.7 % Normal [facility] Comment on above: Performed By: #### C PAUL, CMPN, CRP #### [facility] (DEFAULT) [address] [place] [address] 06179 Immature Grans Absolute 0.04 K/uL Normal <=0.08 [facility] Comment on above: Performed By: #### C PAUL, CMPN, CRP #### [facility] (DEFAULT) [address] [place] [address] 99970 Lymphocytes (Bld) [#/Vol] 1.82 10*3/uL Normal 1.16-3.51 [facility] Comment on above: Performed By: #### C PAUL, CMPN, CRP #### [facility] (DEFAULT) [address] [place] [address] 84308 Lymphocytes/100 WBC (Bld) 30.1 % Normal [facility] Comment on above: Performed By: #### C KB, CMPN, CRP #### [facility] (DEFAULT) [address] [place] [address] 77400 MCV (RBC) [Entitic vol] 95.4 fL Normal 79.6-97.7 [facility] Comment on above: Performed By: #### C KB, CMPN, CRP #### [facility] (DEFAULT) [address] [place] [address] 93539 Mean Cell Hgb 32.1 pg Normal 25.9-33.9 [facility] Comment on above: Performed By: #### C KB, CMPN, CRP #### [facility] (DEFAULT) [address] [place] [address] 94482 Mean Cell Hgb Conc 33.6 g/dL Normal 31.4-35.9 [facility] Comment on above: Performed By: #### C KB, CMPN, CRP #### [facility] (DEFAULT) [address] [place] [address] 72545 Monocytes (Bld) [#/Vol] 0.63 10*3/uL Normal 0.22-0.87 [facility] Comment on above: Performed By: #### C KB, CMPN, CRP #### [facility] (DEFAULT) [address] [place] [address] 34370 Monocytes/100 WBC (Bld) 10.4 % Normal [facility] Comment on above: Performed By: #### C KB, CMPN, CRP #### [facility] (DEFAULT) [address] [place] [address] 09520 Nucleated RBC 0.0 /100 WBC Normal <=0.2 [facility] Comment on above: Performed By: #### C KB, CMPN, CRP #### [facility] (DEFAULT) [address] [place] [address] 90031 Platelet mean volume (Bld) [Entitic vol] 10.4 fL Normal 8.5-12.2 [facility] Comment on above: Performed By: #### C KB, CMPN, CRP #### [facility] (DEFAULT) [address] [place] [address] 75614 Platelets (Bld) [#/Vol] 272 10*3/uL Normal 150-393 [facility] Comment on above: Performed By: #### C KB, CMPN, CRP #### [facility] (DEFAULT) [address] [place] [address] 70784 RBC (Bld) [#/Vol] 4.80 10*6/uL Normal 3.91-5.04 [facility] Comment on above: Performed By: #### C KB, CMPN, CRP #### [facility] (DEFAULT) [address] [place] [address] 38190 RBC Distribution 13.2 % Normal 10.8-14.9 [facility] Comment on above: Performed By: #### C KB, CMPN, CRP #### [facility] (DEFAULT) [address] [place] [address] 69256 Segs + Bands Auto 54.5 % Normal [facility] Comment on above: Performed By: #### C KB, CMPN, CRP #### [facility] (DEFAULT) [address] [place] [address] 18795 Segs + Bands,Absolute Auto 3.30 K/uL Normal 1.64-7.28 [facility] Comment on above: Performed By: #### C KB, CMPN, CRP #### [facility] (DEFAULT) [address] [place] [address] 65390 WBC (Bld) [#/Vol] 6.05 10*3/uL Normal 3.99-11.19 [facility] Comment on above: Performed By: #### C KB, CMPN, CRP #### [facility] (DEFAULT) [address] [place] [address] COMPREHENSIVE METABOLIC PANE Rehan 04-05-2025 Albumin [Mass/Vol] 3.9 g/dL 3.5 - 5.0 g/dL [facility] ALP [Catalytic activity/Vol] 182 U/L High 32 - 126 U[facility]L [facility] ALT [Catalytic activity/Vol] 16 U/L 9 - 48 U/L [facility] Anion gap [Moles/Vol] 13 mmol/L 7 - 17 mmol/L [facility] AST [Catalytic activity/Vol] 18 U/L 10 - 39 U/L [facility] Bilirubin [Mass/Vol] 0.8 mg/dL NINF - 1.5 mg/dL [facility] Calcium [Mass/Vol] 9.6 mg/dL 8.6 - 10. 5 mg/dL [facility] Chloride [Moles/Vol] 103 mmol/L 98 - 10 8 mmol/L [facility] CO2 [Moles/Vol] 29 mmol/L 21 - 31 [facility] Creatinine [Mass/Vol] 0.67 mg/dL 0.50 - 1.20 mg/dL [facility] eGFR, CKD-EPI, Female - PINF [facility] Comment on above: Reported eGFR is bas ed on the CKD-EPI 2020 equation using creatinine, age, and sex. Glucose [Mass/Vol] 103 mg/dL 70 - 179 mg/dL [facility] Osmolality Calc [Osmolality] 294 [facility] Potassium [Moles/Vol] 3.9 mmol/L 3.5 - 5.0 mmol/L [facility] Protein [Mass/Vol] 6.9 g/dL 6.4 - 8.3 g/dL [facility] Sodium [Moles/Vol] 141 mmol/L 135 - 145 mmol/L [facility] Urea nitrogen [Mass/Vol] 12 mg/dL 7 - 25 mg/dL [facility] Urea nitrogen/Creatinine [Mass ratio] 18 mg/mg [facility] Albumin [Mass/Vol] 3.9 g/dL Normal 3.5-5.0 [facility] Comment on above: Performed By: #### Boogie MILLER, CMPN, CRP #### [facility] (DEFAULT) [address] [place] [address] 63665 ALP [Catalytic activity/Vol] 182 U/L High 32-126 [facility] Comment on above: Performed By: #### Boogie MILLER, CMPN, CRP #### [facility] (DEFAULT) [address] [place] [address] 52943 ALT [Catalytic activity/Vol] 16 U/L Normal 9-48 [facility] Comment on above: Performed By: #### Boogie MILLER, CMPN, CRP #### [facility] (DEFAULT) [address] [place] [address] 33853 Anion gap [Moles/Vol] 13 mmol/L Normal 7-17 [facility] Comment on above: Performed By: #### Boogie MILLER, CMPN, CRP #### [facility] (DEFAULT) [address] [place] [address] 43872 AST [Catalytic activity/Vol] 18 U/L Normal 10-39 [facility] Comment on above: Performed By: #### Boogie MILLER, CMPN, CRP #### [facility] (DEFAULT) [address] [place] [address] 30870 Bilirubin [Mass/Vol] 0.8 mg/dL Normal <1.5 [facility] Comment on above: Performed By: #### C PAUL, CMPN, CRP #### [facility] (DEFAULT) [address] [place] [address] 18862 Calcium [Mass/Vol] 9.6 mg/dL Normal 8.6-10.5 [facility] Comment on above: Performed By: #### C PAUL, CMPN, CRP #### [facility] (DEFAULT) [address] [place] [address] 24599 Chloride [Moles/Vol] 103 mmol/L Normal 98-108 [facility] Comment on above: Performed By: #### Boogie MILLER, CMPN, CRP #### [facility] (DEFAULT) [address] [place] [address] 56631 CO2 [Moles/Vol] 29 mmol/L Normal 21-31 [facility] Comment on above: Performed By: #### Boogie MILLER, CMPN, CRP #### [facility] (DEFAULT) [address] [place] [address] 00788 Creatinine [Mass/Vol] 0.67 mg/dL Normal 0.50-1.20 [facility] Comment on above: Performed By: #### Boogie MILLER, CMPN, CRP #### [facility] (DEFAULT) [address] [place] [address] 63317 eGFR, CKD-EPI, Female > Normal >=60 [facility] Comment on above: Result Comment: Repo rted eGFR is based on the CKD-EPI 2020 equation using creatinine, age, and sex. Performed By: #### Boogie MILLER, RUPESHN, CRP #### [facility] (DEFAULT) [address] [place] [address] 24121 Glucose [Mass/Vol] 103 mg/dL Normal Nonfastin -179 mg/dL; Fastin-99 [facility] Comment on above: Performed By: #### Boogie MILLER, CMPN, CRP #### [facility] (DEFAULT) [address] [place] [address]108 Osmolality [Osmolality] 294 mosm/kg Normal 278-305 [facility] Comment on above: Performed By: #### Boogie MILLER, CMPN, CRP #### [facility] (DEFAULT) [address] [place] [address] 13622 Potassium [Moles/Vol] 3.9 mmol/L Normal 3.5-5.0 [facility] Comment on above: Performed By: #### Boogie MILLER, CMPN, CRP #### [facility] (DEFAULT) [address] [place] [address] 55783 Protein [Mass/Vol] 6.9 g/dL Normal 6.4-8.3 [facility] Comment on above: Performed By: #### KISHOR DONAHUE, CRP #### [facility] (DEFAULT) [address] [place] [address] 24354 Sodium [Moles/Vol] 141 mmol/L Normal 135-145 [facility] Comment on above: Performed By: #### KISHOR DONAHUE, CRP #### [facility] (DEFAULT) [address] [place] [address] 03798 Urea nitrogen [Mass/Vol] 12 mg/dL Normal 7-25 [facility] Comment on above: Performed By: #### KISHOR DONAHUE, CRP #### [facility] (DEFAULT) [address] [place] [address] 05668 Urea nitrogen/Creatinine [Mass ratio] 18 mg/mg Normal [facility] Comment on above: Performed By: #### KISHOR DONAHUE, CRP #### [facility] (DEFAULT) [address] [place] [address] 41783 HEMOGLOBIN A1Con 04-05-2025 Average glucose Estimated from glycated hemoglobin (Bld) [Mass/Vol] 108 mg/dL [facility] HbA1c (Bld) [Mass fraction] 5.4 % 4.7 - 5.6 % [facility] Glucose [Mass/Vol] 108 mg/dL Normal [facility] Comment on above: Performed By: #### L AB980, ESR #### [facility] (DEFAULT) [address] [place] [address] 22553 Hemoglobin A1C HPLC 5.4 % Normal 4.7-5.6 [facility] Comment on above: Performed By: #### L AB980, ESR #### [facility] (DEFAULT) [address] [place] [address] 55411 LIPID PANEL WITH REFLEX TO M EASURED LDLon 04-05-2025 Cholesterol [Mass/Vol] 226 mg/dL High NINF - 200 mg/dL [facility] Comment on above: [<200 mg/dL: Desirab le] [200-239 mg/dL: Borderline High] [>239 mg/dL: High] Cholesterol in HDL [Mass/Vol] 51 mg/dL 40 - PINF mg/dL [facility] Comment on above: [<40 mg/dL: Low (Hig h Risk)] [>59 mg/dL: High (Low Risk)] Cholesterol in LDL [Mass/Vol] 149 mg/dL High 0 - 99 mg/dL [facility] Comment on above: [<100 mg/dL: Optimal ] [100-129 mg/dL: Near Optimal] [130-159 mg/dL: Borderline High] [160-189 mg/dL: High] [>189 mg/dL: Very High] Cholesterol non HDL [Mass/Vol] 175 mg/dL High NINF - 130 mg/dL [facility] Cholesterol.total/Gali sterol in HDL [Mass ratio] 4.4 {ratio} NINF - 4.5 [facility] Triglyceride [Mass/Vol] 128 mg/dL NINF - 150 mg/dL [facility] Comment on above: [<150 mg/dL: Desirab le] [150-199 mg/dL: Borderline] [200-499 mg/dL: High] [>500 mg/dL: Very High] Calculated LDL Cholesterol 149 mg/dL High 0-99 [facility] Comment on above: Result Comment: [<10 0 mg/dL: Optimal] [100-129 mg/dL: Near Optimal] [130-159 mg/dL: Borderline High] [160-189 mg/dL: High] [>189 mg/dL: Very High] Performed By: #### Boogie MILLER, RUPESHN, CRP #### [facility] (DEFAULT) [address] [place] [address] Cholesterol [Mass/Vol] 226 mg/dL High <200 [facility] Comment on above: Result Comment: [<20 0 mg/dL: Desirable] [200-239 mg/dL: Borderline High] [>239 mg/dL: High] Performed By: #### Boogie MILLER, CMPN, CRP #### [facility] (DEFAULT) [address] [place] [address] 21340 Cholesterol in HDL [Mass/Vol] 51 mg/dL Normal >=40 [facility] Comment on above: Result Comment: [<40 mg/dL: Low (High Risk)] [>59 mg/dL: High (Low Risk)] Performed By: #### C KB, CMPN, CRP #### [facility] (DEFAULT) [address] [place] [address] 59099 Non HDL Cholesterol 175 mg/dL High <130 [facility] Comment on above: Performed By: #### C KB, CMPN, CRP #### [facility] (DEFAULT) [address] [place] [address] 83372 Total Cholesterol/HDL Ratio 4.4 Normal <4.5 [facility] Comment on above: Performed By: #### C KB, CMPN, CRP #### [facility] (DEFAULT) [address] [place] [address] 61670 Triglyceride [Mass/Vol] 128 mg/dL Normal <150 [facility] Comment on above: Result Comment: [<15 0 mg/dL: Desirable] [150-199 mg/dL: Borderline] [200-499 mg/dL: High] [>500 mg/dL: Very High] Performed By: #### C KB, CMPN, CRP #### [facility] (DEFAULT) [address] [place] [address] 86322 No Panel Informationon 04-05 Interpretation and review of laboratory results Abnormal [facility] URINALYSISOrdered By: Smione Epstein on 04-05-2025 Amorphous sediment LM Ql (Urine sed) <25% = Slight Abnormal (none) [facility] Appearance (U) Cloudy Abnormal Clear [facility] Bacteria LM Ql (Urine sed) PRESENT Abnormal ABSENT [facility] Calcium Oxalate Crystals PRESENT [facility] Color (U) Yellow Yellow [facility] Epithelial cells.squamous LM Ql (Urine sed) 3-5/hpf = 1+ 0-2/hpf, 3-5/hpf = 1+ [facility] Glucose Test strip (U) [Mass/Vol] Negative Negative [facility] Interpretation and review of laboratory results [facility] Ketones (U) [Mass/Vol] Negative Negative [facility] Leukocyte esterase Test strip Ql (U) Moderate Abnormal Negative [facility] Nitrite Ql (U) Positive Abnormal Negative [facility] pH (U) 5.5 [pH] 5.0 - 7.0 [facility] Protein (U) [Mass/Vol] Trace Abnormal Negative [facility] RBC (U) [#/Vol] Small [facility] RBC LM.HPF (Urine sed) [#/Area] 0-2 [facility] Specific gravity (U) [Rel density] 1.017 1.001 - 1.035 [facility] Urobilinogen (U) [Mass/Vol] 0.2 E.U./dL 0.2 E.U/dL, 1.0 E.U/dL [facility] WBC LM.HPF (Urine sed) [#/Area] /[HPF] Abnormal [facility] URINALYSISon 04-05-2025 Amorphous <25% = Slight Abnormal (none) [facility] Comment on above: Performed By: #### C KB, CMPN, CRP #### [facility] (DEFAULT) [address] [place] [address] 40351 Appearance (U) Cloudy Abnormal Clear [facility] Comment on above: Performed By: #### C KB, CMPN, CRP #### [facility] (DEFAULT) [address] [place] [address] 64640 Bacteria PRESENT Abnormal ABSENT [facility] Comment on above: Performed By: #### C KB, CMPN, CRP #### [facility] (DEFAULT) [address] [place] [address] Blood Urine Small Abnormal Negative [facility] Comment on above: Performed By: #### C KB, CMPN, CRP #### [facility] (DEFAULT) [address] [place] [address] 26297 Calcium Oxalate Crystals PRESENT Normal [facility] Comment on above: Performed By: #### Boogie MILLER CMPN, CRP #### [facility] (DEFAULT) [address] [place] [address] 69117 Color (U) Yellow Normal Yellow [facility] Comment on above: Performed By: #### Boogie MILLER, CMPN, CRP #### [facility] (DEFAULT) [address] [place] [address] 38778 Glucose Ql (U) Negative Normal Negative [facility] Comment on above: Performed By: #### Boogie MILLER CMPN, CRP #### [facility] (DEFAULT) [address] [place] [address] 06226 Ketones Ql (U) Negative Normal Negative [facility] Comment on above: Performed By: #### Boogie MILLER CMPN, CRP #### [facility] (DEFAULT) [address] [place] [address] 13040 Leukocyte esterase Test strip Ql (U) Moderate Abnormal Negative [facility] Comment on above: Performed By: #### Boogie MILLER CMPN, CRP #### [facility] (DEFAULT) [address] [place] [address] 95140 Nitrites Urine Positive Abnormal Negative [facility] Comment on above: Performed By: #### Boogie MILLER CMPN, CRP #### [facility] (DEFAULT) [address] [place] [address] 68015 pH (U) 5.5 [pH] Normal 5.0-7.0 [facility] Comment on above: Performed By: #### Boogie MILLER CMPN, CRP #### [facility] (DEFAULT) [address] [place] [address] 70081 Protein Urine Trace Abnormal Negative [facility] Comment on above: Performed By: #### Boogie MILLER CMPN, CRP #### [facility] (DEFAULT) [address] [place] [address] 94473 RBC Urine 0-2 Normal 0-2 [facility] Comment on above: Performed By: #### KISHOR DONAHUE, CRP #### [facility] (DEFAULT) [address] [place] [address] 92563 Specific [place] Urine 1.017 Normal 1.001-1.035 [facility] Comment on above: Performed By: #### Boogie MILLER CMPN, CRP #### [facility] (DEFAULT) [address] [place] [address] 09262 Squamous/Epithelial Cells, Urine 3-5/hpf = 1+ Normal 0-2/hpf, 3-5/hpf = 1+ [facility] Comment on above: Performed By: #### Boogie MILLER CMPN, CRP #### [facility] (DEFAULT) [address] [place] [address] 77694 Urobilinogen Urine 0.2 E.U./dL Normal 0.2 E.U/d L, 1.0 E.U/dL [facility] Comment on above: Performed By: #### KISHOR DONAHUE, CRP #### [facility] (DEFAULT) [address] [place] [address] 60228 WBC LM.HPF (Urine sed) [#/Area] /[HPF] Abnormal 0 - 5 [facility] Comment on above: Performed By: #### KISHOR DONAHUE, CRP #### [facility] (DEFAULT) [address] [place] [address] 98886 ECGOrdered By: Arnol brunson 03-07-2025 [facility] Work Phone: MR Brain WO and W contrast Zari Christy 03-07-2025 IMPRESSION: No acute infarct or hemorrhage in the brain. Chronic microvascular ischemic changes. Chronic thickening of the pituitary stalk, of doubtful clinical significance given the stability since at least 2011 OLOGY EXAM: MRI BRAIN WITH AND WITHOUT CONTRAST, 03/07/2025 15:14 PM COMPARISON: CT HEAD WITHOUT CONTRAST March 06, 2025 CLINICAL INDICATIONS: 69 years Female Vision changes, vertigo, eval for stroke (LKW 2-3 weeks ago) RELEVANT CLINICAL HISTORY: TECHNIQUE: A series of multisequence, multiplanar images of the brain are obtained both before and after intravenous administration of gadolinium-based contrast using standard protocol. CONTRAST: Gadopiclenol SOLN 1-25 mL; Route of Administration: Intravenous; Dose: 8.6 mL. FINDINGS: Moderate scattered FLAIR hyperintensity in the periventricular and subcortical white matter is nonspecific, but probably due to chronic small vessel changes. No evidence of edema. No evidence of mass lesion. No evidence of hemorrhage. No diffusion restriction or evidence of acute infarct is identified. No abnormal enhancement. No extracerebral collection. Sellar appears unremarkable. The pituitary stalk appears thickened and heterogeneously enhancing, measuring about 4 mm in diameter. However, when comparing to a prior study from February 2012, this finding is stable and therefore likely of no clinical significance. Posterior fossa is unremarkable. Ventricles and sulci are within normal limits. Extracranial structures are unremarkable. RADIOLOGY Sai Ramirez MD - 03/07/2025 EXAM: MRI BRAIN WITH AND WITHOUT CONTRAST, 03/07/2025 15:14 PM COMPARISON: CT HEAD WITHOUT CONTRAST March 06, 2025 CLINICAL INDICATIONS: 69 years Female Vision changes, vertigo, eval for stroke (LKW 2-3 weeks ago) RELEVANT CLINICAL HISTORY: TECHNIQUE: A series of multisequence, multiplanar images of the brain are obtained both before and after intravenous administration of gadolinium-based contrast using standard protocol. CONTRAST: Gadopiclenol SOLN 1-25 mL; Route of Administration: Intravenous; Dose: 8.6 mL. FINDINGS: Moderate scattered FLAIR hyperintensity in the periventricular and subcortical white matter is nonspecific, but probably due to chronic small vessel changes. No evidence of edema. No evidence of mass lesion. No evidence of hemorrhage. No diffusion restriction or evidence of acute infarct is identified. No abnormal enhancement. No extracerebral collection. Sellar appears unremarkable. The pituitary stalk appears thickened and heterogeneously enhancing, measuring about 4 mm in diameter. However, when comparing to a prior study from February 2012, this finding is stable and therefore likely of no clinical significance. Posterior fossa is unremarkable. Ventricles and sulci are within normal limits. Extracranial structures are unremarkable. IMPRESSION IMPRESSION: No acute infarct or hemorrhage in the brain. Chronic microvascular ischemic changes. Chronic thickening of the pituitary stalk, of doubtful clinical significance given the stability since at least 2011 [facility] Radiology Study observation (narrative) [facility] MR Brain WO and W contrast I VOrdered By: Sai Ramirez on 03-07-2025 [facility] Work Phone: MR Orbit WO and W contrast I Von 03-07-2025 IMPRESSION: No evidence for optic neuritis or other acute orbital finding. OLOGY EXAM: MRI ORBITS WITH AND WITHOUT CONTRAST, 03/07/2025 15:15 PM COMPARISON: MRI BRAIN WITH AND WITHOUT CONTRAST March 07, 2025 CLINICAL INDICATIONS: 69 years Female Vision changes, eval for optic neuritis RELEVANT CLINICAL HISTORY: TECHNIQUE: A series of multiplanar, multisequence images of the orbits are obtained both before and after intravenous contrast. Study includes thin section axial and coronal images post contrast images with fat saturation. CONTRAST: Gadopiclenol SOLN 1-25 mL; Route of Administration: Intravenous; Dose: 8.6 mL. FINDINGS: Globes appear unremarkable. Evidence of prior cataract surgery. Optic nerves appear normal in signal and caliber. The supraclinoid internal carotid arteries indent the undersurface of the optic nerve cisternal segments bilaterally which is an anatomic variant is likely of no clinical significance. There is no retro-orbital mass. Extraocular muscles are normal in size and symmetric. Lacrimal glands are within normal limits. Superior ophthalmic veins are symmetric in caliber. Optic chiasm appears normal. Sella appears unremarkable. There is thickening and heterogeneous enhancement of the pituitary stalk which measures about 4 mm in thickness. This finding is grossly stable dating back to the prior brain MRI from February 2012. Cavernous sinuses appear normal. RADIOLOGY Sai Ramirez MD - 03/07/2025 EXAM: MRI ORBITS WITH AND WITHOUT CONTRAST, 03/07/2025 15:15 PM COMPARISON: MRI BRAIN WITH AND WITHOUT CONTRAST March 07, 2025 CLINICAL INDICATIONS: 69 years Female Vision changes, eval for optic neuritis RELEVANT CLINICAL HISTORY: TECHNIQUE: A series of multiplanar, multisequence images of the orbits are obtained both before and after intravenous contrast. Study includes thin section axial and coronal images post contrast images with fat saturation. CONTRAST: Gadopiclenol SOLN 1-25 mL; Route of Administration: Intravenous; Dose: 8.6 mL. FINDINGS: Globes appear unremarkable. Evidence of prior cataract surgery. Optic nerves appear normal in signal and caliber. The supraclinoid internal carotid arteries indent the undersurface of the optic nerve cisternal segments bilaterally which is an anatomic variant is likely of no clinical significance. There is no retro-orbital mass. Extraocular muscles are normal in size and symmetric. Lacrimal glands are within normal limits. Superior ophthalmic veins are symmetric in caliber. Optic chiasm appears normal. Sella appears unremarkable. There is thickening and heterogeneous enhancement of the pituitary stalk which measures about 4 mm in thickness. This finding is grossly stable dating back to the prior brain MRI from February 2012. Cavernous sinuses appear normal. IMPRESSION IMPRESSION: No evidence for optic neuritis or other acute orbital finding. [facility] Radiology Study observation (narrative) [facility] MRI BRAIN WITH AND WITHOUT C [facility] 03-07-2025 MRI BRAIN WITH AND WITHOUT CONTRAST EXAM: MRI BRAIN WITH AND WITHOUT CONTRAST, 03/07/2025 15:14 PM COMPARISON: CT HEAD WITHOUT CONTRAST March 06, 2025 CLINICAL INDICATIONS: 69 years Female Vision changes, vertigo, eval for stroke (LKW 2-3 weeks ago) RELEVANT CLINICAL HISTORY: TECHNIQUE: A series of multisequence, multiplanar images of the brain are obtained both before and after intravenous administration of gadolinium-based contrast using standard protocol. CONTRAST: Gadopiclenol SOLN 1-25 mL; Route of Administration: Intravenous; Dose: 8.6 mL. FINDINGS: Moderate scattered FLAIR hyperintensity in the periventricular and subcortical white matter is nonspecific, but probably due to chronic small vessel changes. No evidence of edema. No evidence of mass lesion. No evidence of hemorrhage. No diffusion restriction or evidence of acute infarct is identified. No abnormal enhancement. No extracerebral collection. Sellar appears unremarkable. The pituitary stalk appears thickened and heterogeneously enhancing, measuring about 4 mm in diameter. However, when comparing to a prior study from February 2012, this finding is stable and therefore likely of no clinical significance. Posterior fossa is unremarkable. Ventricles and sulci are within normal limits. Extracranial structures are unremarkable. IMPRESSION: No acute infarct or hemorrhage in the brain. Chronic microvascular ischemic changes. Chronic thickening of the pituitary stalk, of doubtful clinical significance given the stability since at least 2011 Normal [facility] MRI ORBITS WITH AND WITHOUT CONTRASTon 03-07-2025 MRI ORBITS WITH AND WITHOUT CONTRAST EXAM: MRI ORBITS WITH AND WITHOUT CONTRAST, 03/07/2025 15:15 PM COMPARISON: MRI BRAIN WITH AND WITHOUT CONTRAST March 07, 2025 CLINICAL INDICATIONS: 69 years Female Vision changes, eval for optic neuritis RELEVANT CLINICAL HISTORY: TECHNIQUE: A series of multiplanar, multisequence images of the orbits are obtained both before and after intravenous contrast. Study includes thin section axial and coronal images post contrast images with fat saturation. CONTRAST: Gadopiclenol SOLN 1-25 mL; Route of Administration: Intravenous; Dose: 8.6 mL. FINDINGS: Globes appear unremarkable. Evidence of prior cataract surgery. Optic nerves appear normal in signal and caliber. The supraclinoid internal carotid arteries indent the undersurface of the optic nerve cisternal segments bilaterally which is an anatomic variant is likely of no clinical significance. There is no retro-orbital mass. Extraocular muscles are normal in size and symmetric. Lacrimal glands are within normal limits. Superior ophthalmic veins are symmetric in caliber. Optic chiasm appears normal. Sella appears unremarkable. There is thickening and heterogeneous enhancement of the pituitary stalk which measures about 4 mm in thickness. This finding is grossly stable dating back to the prior brain MRI from February 2012. Cavernous sinuses appear normal. IMPRESSION: No evidence for optic neuritis or other acute orbital finding. Normal [facility] C REACTIVE PROTEINOrdered By : Cain Cervantes on 03-06-2025 CRP High sensitivity method [Mass/Vol] 82.05 mg/L High NINF - 10.00 mg/L [facility] Interpretation and review of laboratory results Abnormal [facility] C REACTIVE PROTEINon 025 CRP [Mass/Vol] 82.05 mg/L High <10.00 [facility] Comment on above: Performed By: #### C KB, CRP, CMPN #### [facility] (DEFAULT) [address] [place] [address] CALCIUMon 03-06-2025 Calcium [Mass/Vol] 9.5 mg/dL 8.6 - 10. 5 mg/dL [facility] Calcium [Mass/Vol] 9.5 mg/dL Normal 8.6-10.5 [facility] Comment on above: Performed By: #### C KB, CRP, CMPN #### [facility] (DEFAULT) [address] [place] [address] CBC AND ELECTRONIC DIFFon Basophils (Bld) [#/Vol] 0.05 10*3/uL 0.00 - 0.15 K/uL [facility] Basophils/100 WBC (Bld) 0.6 % [facility] Differential cell count method Nom (Bld) Electronic Differential [facility] Eosinophils (Bld) [#/Vol] 0.04 10*3/uL 0.00 - 0.42 K/uL [facility] Eosinophils/100 WBC (Bld) 0.5 % [facility] Erythrocyte distribution width (RBC) [Ratio] 13.2 % 10.8 - 14.9 % [facility] Hematocrit (Bld) [Volume fraction] 45.7 % High 34.9 - 44.3 % [facility] Hemoglobin (Bld) [Mass/Vol] 16 g/dL High 11.4 - 15.2 g/dL [facility] Immature granulocytes (Bld) [#/Vol] 0.09 10*3/uL High NINF - 0.08 K/uL [facility] Immature granulocytes/100 WBC (Bld) 1.1 % [facility] Interpretation and review of laboratory results Abnormal [facility] Lymphocytes (Bld) [#/Vol] 1.52 10*3/uL 1.16 - 3.51 K/uL [facility] Lymphocytes/100 WBC (Bld) 17.7 % [facility] MCH (RBC) [Entitic mass] 32.3 pg 25.9 - 33.9 pg [facility] MCHC (RBC) [Mass/Vol] 35 g/dL 31.4 - 35.9 g/dL [facility] MCV (RBC) [Entitic vol] 92.1 fL 79.6 - 97.7 fL [facility] Monocytes (Bld) [#/Vol] 1.32 10*3/uL High 0.22 - 0.87 K/uL [facility] Monocytes/100 WBC (Bld) 15.4 % [facility] Neutrophils (Bld) [#/Vol] 5.55 10*3/uL 1.64 - 7.28 K/uL [facility] Nucleated RBC/100 WBC (Bld) [Ratio] 0 % NINF [facility] Platelet mean volume (Bld) [Entitic vol] 9.5 fL 8.5 - 12.2 fL [facility] Platelets (Bld) [#/Vol] 228 10*3/uL 150 - 393 K /uL [facility] RBC (Bld) [#/Vol] 4.96 10*6/uL [facility] Segmented neutrophils/100 WBC (Bld) 64.7 % [facility] WBC (Bld) [#/Vol] 8.57 10*3/uL 3.99 - 11. 19 K/uL [facility] Basophils (Bld) [#/Vol] 0.05 10*3/uL Normal 0.00-0.15 [facility] Comment on above: Performed By: #### L AB980, ESR #### [facility] (DEFAULT) [address] [place] [address] Basophils/100 WBC (Bld) 0.6 % Normal [facility] Comment on above: Performed By: #### L AB980, ESR #### [facility] (DEFAULT) [address] [place] [id number] DIFF STATUS Electronic Differential Normal [facility] Comment on above: Performed By: #### L AB980, ESR #### [facility] (DEFAULT) [address] [place] [address]13 Eosinophils (Bld) [#/Vol] 0.04 10*3/uL Normal 0.00-0.42 [facility] Comment on above: Performed By: #### L AB980, ESR #### [facility] (DEFAULT) [address] [place] [address] 39928 Eosinophils/100 WBC (Bld) 0.5 % Normal [facility] Comment on above: Performed By: #### L AB980, ESR #### [facility] (DEFAULT) [address] [place] [address] 58220 Hematocrit (Bld) [Volume fraction] 45.7 % High 34.9-44.3 [facility] Comment on above: Performed By: #### L AB980, ESR #### [facility] (DEFAULT) [address] [place] [address] 42225 Hemoglobin (Bld) [Mass/Vol] 16.0 g/dL High 11.4-15.2 [facility] Comment on above: Performed By: #### L AB980, ESR #### [facility] (DEFAULT) [address] [place] [address] 50264 Immature Grans % 1.1 % Normal [facility] Comment on above: Performed By: #### L AB980, ESR #### [facility] (DEFAULT) [address] [place] [address] 00358 Immature Grans Absolute 0.09 K/uL High <=0.08 [facility] Comment on above: Performed By: #### L AB980, ESR #### [facility] (DEFAULT) [address] [place] [address] 41758 Lymphocytes (Bld) [#/Vol] 1.52 10*3/uL Normal 1.16-3.51 [facility] Comment on above: Performed By: #### L AB980, ESR #### [facility] (DEFAULT) [address] [place] [address] 25590 Lymphocytes/100 WBC (Bld) 17.7 % Normal [facility] Comment on above: Performed By: #### L AB980, ESR #### [facility] (DEFAULT) [address] [place] [address] 06613 MCV (RBC) [Entitic vol] 92.1 fL Normal 79.6-97.7 [facility] Comment on above: Performed By: #### L AB980, ESR #### [facility] (DEFAULT) [address] [place] [address] 84785 Mean Cell Hgb 32.3 pg Normal 25.9-33.9 [facility] Comment on above: Performed By: #### L AB980, ESR #### [facility] (DEFAULT) [address] [place] [address] 95696 Mean Cell Hgb Conc 35.0 g/dL Normal 31.4-35.9 [facility] Comment on above: Performed By: #### L AB980, ESR #### [facility] (DEFAULT) [address] [place] [address] 32992 Monocytes (Bld) [#/Vol] 1.32 10*3/uL High 0.22-0.87 [facility] Comment on above: Performed By: #### L AB980, ESR #### [facility] (DEFAULT) [address] [place] [address] 89472 Monocytes/100 WBC (Bld) 15.4 % Normal [facility] Comment on above: Performed By: #### L AB980, ESR #### [facility] (DEFAULT) [address] [place] [address] 21445 Nucleated RBC 0.0 /100 WBC Normal <=0.2 [facility] Comment on above: Performed By: #### L AB980, ESR #### [facility] (DEFAULT) [address] [place] [address] 71962 Platelet mean volume (Bld) [Entitic vol] 9.5 fL Normal 8.5-12.2 [facility] Comment on above: Performed By: #### L AB980, ESR #### [facility] (DEFAULT) [address] [place] [address] 02449 Platelets (Bld) [#/Vol] 228 10*3/uL Normal 150-393 [facility] Comment on above: Performed By: #### L AB980, ESR #### [facility] (DEFAULT) [address] [place] [address] 88364 RBC (Bld) [#/Vol] 4.96 10*6/uL Normal 3.91-5.04 [facility] Comment on above: Performed By: #### L AB980, ESR #### [facility] (DEFAULT) [address] [place] [address] 82390 RBC Distribution 13.2 % Normal 10.8-14.9 [facility] Comment on above: Performed By: #### L AB980, ESR #### [facility] (DEFAULT) [address] [place] [address] 31769 Segs + Bands Auto 64.7 % Normal [facility] Comment on above: Performed By: #### L AB980, ESR #### [facility] (DEFAULT) [address] [address] Segs + Bands,Absolute Auto 5.55 K/uL Normal 1.64-7.28 [facility] Comment on above: Performed By: #### L AB980, ESR #### [facility] (DEFAULT) [address] [place] [address] 25192 WBC (Bld) [#/Vol] 8.57 10*3/uL Normal 3.99-11.19 [facility] Comment on above: Performed By: #### L AB980, ESR #### [facility] (DEFAULT) [address] [place] [address] CHEM 7 (LYTES,BUN,CREA,GLUC) on 03-06-2025 Anion gap [Moles/Vol] 12 mmol/L 7 - 17 mmol/L [facility] Chloride [Moles/Vol] 104 mmol/L 98 - 10 8 [facility] CO2 [Moles/Vol] 24 mmol/L 21 - 31 mmol/L [facility] Creatinine [Mass/Vol] 0.56 mg/dL 0.50 - 1.20 mg/dL [facility] eGFR, CKD-EPI, Female - PINF [facility] Comment on above: Reported eGFR is bas ed on the CKD-EPI 2020 equation using creatinine, age, and sex. Glucose [Mass/Vol] 114 mg/dL 70 - 179 mg/dL [facility] Osmolality Calc [Osmolality] 285 [facility] Potassium [Moles/Vol] 3.7 mmol/L 3.5 - 5.0 mmol/L [facility] Sodium [Moles/Vol] 136 mmol/L 135 - 145 mmol/L [facility] Urea nitrogen [Mass/Vol] 11 mg/dL 7 - 25 mg/dL [facility] Urea nitrogen/Creatinine [Mass ratio] 20 mg/mg [facility] Anion gap [Moles/Vol] 12 mmol/L Normal 7-17 [facility] Comment on above: Performed By: #### C KB, CRP, CMPN #### [facility] (DEFAULT) [address] [place] [address] Chloride [Moles/Vol] 104 mmol/L Normal 98-108 [facility] Comment on above: Performed By: #### C KB, CRP, CMPN #### [facility] (DEFAULT) [address] [place] [address] CO2 [Moles/Vol] 24 mmol/L Normal 21-31 [facility] Comment on above: Performed By: #### Boogie MILLER CRP, CMPN #### [facility] (DEFAULT) [address] [place] [address]7320 Creatinine [Mass/Vol] 0.56 mg/dL Normal 0.50-1.20 [facility] Comment on above: Performed By: #### Boogie MILLER, CRP, CMPN #### [facility] (DEFAULT) [address] [place] [address] 70447 eGFR, CKD-EPI, Female > Normal >=60 [facility] Comment on above: Result Comment: Repo rted eGFR is based on the CKD-EPI 2020 equation using creatinine, age, and sex. Performed By: #### Boogie MILLER CRP, CMPN #### [facility] (DEFAULT) [address] [place] [address] 32733 Glucose [Mass/Vol] 114 mg/dL Normal Nonfastin -179 mg/dL; Fastin-99 [facility] Comment on above: Performed By: #### Boogie MILLER CRP, CMPN #### [facility] (DEFAULT) [address] [address] Osmolality [Osmolality] 285 mosm/kg Normal 278-305 [facility] Comment on above: Performed By: #### Boogie MILLER CRP, CMPN #### [facility] (DEFAULT) [address] [place] [address] 26328 Potassium [Moles/Vol] 3.7 mmol/L Normal 3.5-5.0 [facility] Comment on above: Performed By: #### Boogie MILLER CRP, CMPN #### [facility] (DEFAULT) [address] [address] Sodium [Moles/Vol] 136 mmol/L Normal 135-145 [facility] Comment on above: Performed By: #### Boogie MILLER, CRP, CMPN #### [facility] (DEFAULT) [address] [place] [address] Urea nitrogen [Mass/Vol] 11 mg/dL Normal 7-25 [facility] Comment on above: Performed By: #### C GUZMAN MILLER CMPN #### [facility] (DEFAULT) [address] [place] [address] Urea nitrogen/Creatinine [Mass ratio] 20 mg/mg Normal [facility] Comment on above: Performed By: #### Boogie MILLER CRP, CMPN #### [facility] (DEFAULT) [address] [place] [address] CT ANGIO BRAIN/NECKon 2024 CT ANGIO BRAIN/NECK EXAM: CT ANGIO BRAIN/NECK, 03/06/2025 20:57 PM COMPARISON: CT HEAD WITHOUT CONTRAST March 06, 2025, MRI Brain W/WO Contrast=H February 15, 2012 CLINICAL INDICATIONS: 69 years Female non acute stroke eval TECHNIQUE: A series of transaxial multislice computerized tomographic images are obtained with helical technique from top of aortic arch to vertex following bolus intravenous administration of nonionic contrast. Axial thin section source images, as well as sagittal and coronal thin section reformats, were provided at the scanner. Additional multiplanar and 3D reconstructions were provided. CONTRAST: iohexol (OMNIPAQUE) 350 MG/ML injection 1-171 mL; Route of Administration: Intravenous; Dose: 100 mL. FINDINGS: CT ANGIOGRAM NECK: AORTIC ARCH: Conventional anatomic origin of the great vessels. No significant stenosis. RIGHT CAROTID ARTERY: Common carotid artery is patent and normal in caliber. Internal carotid artery origin at the bifurcation is patent and normal in caliber. More distal cervical segments of the internal carotid artery are patent and normal in caliber. LEFT CAROTID ARTERY: Common carotid artery is patent and normal in caliber. Internal carotid artery origin at the bifurcation demonstrates atherosclerotic plaque, without significant stenosis. More distal cervical segments of the internal carotid artery are patent and normal in caliber. RIGHT VERTEBRAL ARTERY: Origin is patent. More distal cervical segments are patent and normal in caliber. LEFT VERTEBRAL ARTERY: Origin is patent. More distal cervical segments are patent and normal in caliber. OTHER: No dissection or pseudoaneurysm. CT ANGIOGRAM HEAD: INTERNAL CAROTID ARTERIES: Atherosclerotic calcifications, without significant stenosis. ANTERIOR CEREBRAL ARTERIES: Patent and normal in caliber. MIDDLE CEREBRAL ARTERIES: Patent and normal in caliber. POSTERIOR CEREBRAL ARTERIES: Patent and normal in caliber. origin of the left USER INTERFACE ARTIST is noted. VERTEBRAL ARTERIES: Patent and normal in caliber. BASILAR ARTERY: Patent. No significant stenosis. OTHER: No aneurysm or AVM. ADDITIONAL FINDINGS: Degenerative changes visualized spine. Heterogeneous nodular thyroid. IMPRESSION: No significant stenosis in the arteries of the neck and brain.. I personally viewed and interpreted these images and I have reviewed and approved this report. Normal [facility] CT HEAD WITHOUT CONTRASTon 0 03-06-2025 CT HEAD WITHOUT CONTRAST EXAM: CT HEAD WITHOUT CONTRAST, 03/06/2025 8:58 PM COMPARISON: MRI Brain W/WO Contrast=H February 15, 2012 CLINICAL INDICATIONS: 69 years Female non acute stroke eval TECHNIQUE: A series of transaxial computerized tomographic images are obtained from base of skull to vertex without intravenous contrast. Axial whole-head and thin section posterior fossa slices are provided. Reformats: Sagittal and coronal. FINDINGS: Contreras-white matter differentiation is preserved. No acute large territory infarction is seen. Patchy periventricular white matter hypoattenuation is noted which is non-specific, but likely due to chronic small vessel ischemic changes. No acute intracranial hemorrhage is seen. No significant mass effect or midline shift. Ventricles are normal in size and configuration for patient age. Skull appears intact. Evidence of prior bilateral cataract surgery. Visualized paranasal sinuses are clear. Visualized mastoid air cells are clear. Atherosclerotic calcifications of the major arteries at the skull base are noted. IMPRESSION: No acute intracranial findings. I personally viewed and interpreted these images and I have reviewed and approved this report. Normal [facility] CT Head WO contraston 2024 IMPRESSION: No acute intracranial findings. I personally viewed and interpreted these images and I have reviewed and approved this report. OLOGY EXAM: CT HEAD WITHOUT CONTRAST, 03/06/2025 8:58 PM COMPARISON: MRI Brain W/WO Contrast=H February 15, 2012 CLINICAL INDICATIONS: 69 years Female non acute stroke eval TECHNIQUE: A series of transaxial computerized tomographic images are obtained from base of skull to vertex without intravenous contrast. Axial whole-head and thin section posterior fossa slices are provided. Reformats: Sagittal and coronal. FINDINGS: Contreras-white matter differentiation is preserved. No acute large territory infarction is seen. Patchy periventricular white matter hypoattenuation is noted which is non-specific, but likely due to chronic small vessel ischemic changes. No acute intracranial hemorrhage is seen. No significant mass effect or midline shift. Ventricles are normal in size and configuration for patient age. Skull appears intact. Evidence of prior bilateral cataract surgery. Visualized paranasal sinuses are clear. Visualized mastoid air cells are clear. Atherosclerotic calcifications of the major arteries at the skull base are noted. RADIOLOGY Jean Jefferson MD - 03/06/2025 EXAM: CT HEAD WITHOUT CONTRAST, 03/06/2025 8:58 PM COMPARISON: MRI Brain W/WO Contrast=H February 15, 2012 CLINICAL INDICATIONS: 69 years Female non acute stroke eval TECHNIQUE: A series of transaxial computerized tomographic images are obtained from base of skull to vertex without intravenous contrast. Axial whole-head and thin section posterior fossa slices are provided. Reformats: Sagittal and coronal. FINDINGS: Contreras-white matter differentiation is preserved. No acute large territory infarction is seen. Patchy periventricular white matter hypoattenuation is noted which is non-specific, but likely due to chronic small vessel ischemic changes. No acute intracranial hemorrhage is seen. No significant mass effect or midline shift. Ventricles are normal in size and configuration for patient age. Skull appears intact. Evidence of prior bilateral cataract surgery. Visualized paranasal sinuses are clear. Visualized mastoid air cells are clear. Atherosclerotic calcifications of the major arteries at the skull base are noted. IMPRESSION IMPRESSION: No acute intracranial findings. I personally viewed and interpreted these images and I have reviewed and approved this report. [facility]narrative[facility] for per fusion and CT angiogram Head vessels WO and W contrast [place] 03-06-2025 IMPRESSION: No significant stenosis in the arteries of the neck and brain.. I personally viewed and interpreted these images and I have reviewed and approved this report. OLOGY EXAM: CT ANGIO BRAIN/NECK, 03/06/2025 20:57 PM COMPARISON: CT HEAD WITHOUT CONTRAST March 06, 2025, MRI Brain W/WO Contrast=H February 15, 2012 CLINICAL INDICATIONS: 69 years Female non acute stroke eval TECHNIQUE: A series of transaxial multislice computerized tomographic images are obtained with helical technique from top of aortic arch to vertex following bolus intravenous administration of nonionic contrast. Axial thin section source images, as well as sagittal and coronal thin section reformats, were provided at the scanner. Additional multiplanar and 3D reconstructions were provided. CONTRAST: iohexol (OMNIPAQUE) 350 MG/ML injection 1-171 mL; Route of Administration: Intravenous; Dose: 100 mL. FINDINGS: CT ANGIOGRAM NECK: AORTIC ARCH: Conventional anatomic origin of the great vessels. No significant stenosis. RIGHT CAROTID ARTERY: Common carotid artery is patent and normal in caliber. Internal carotid artery origin at the bifurcation is patent and normal in caliber. More distal cervical segments of the internal carotid artery are patent and normal in caliber. LEFT CAROTID ARTERY: Common carotid artery is patent and normal in caliber. Internal carotid artery origin at the bifurcation demonstrates atherosclerotic plaque, without significant stenosis. More distal cervical segments of the internal carotid artery are patent and normal in caliber. RIGHT VERTEBRAL ARTERY: Origin is patent. More distal cervical segments are patent and normal in caliber. LEFT VERTEBRAL ARTERY: Origin is patent. More distal cervical segments are patent and normal in caliber. OTHER: No dissection or pseudoaneurysm. CT ANGIOGRAM HEAD: INTERNAL CAROTID ARTERIES: Atherosclerotic calcifications, without significant stenosis. ANTERIOR CEREBRAL ARTERIES: Patent and normal in caliber. MIDDLE CEREBRAL ARTERIES: Patent and normal in caliber. POSTERIOR CEREBRAL ARTERIES: Patent and normal in caliber. origin of the left USER INTERFACE ARTIST is noted. VERTEBRAL ARTERIES: Patent and normal in caliber. BASILAR ARTERY: Patent. No significant stenosis. OTHER: No aneurysm or AVM. ADDITIONAL FINDINGS: Degenerative changes visualized spine. Heterogeneous nodular thyroid. RADIOLOGY Jean Jefferson MD - 03/06/2025 EXAM: CT ANGIO BRAIN/NECK, 03/06/2025 20:57 PM COMPARISON: CT HEAD WITHOUT CONTRAST March 06, 2025, MRI Brain W/WO Contrast=H February 15, 2012 CLINICAL INDICATIONS: 69 years Female non acute stroke eval TECHNIQUE: A series of transaxial multislice computerized tomographic images are obtained with helical technique from top of aortic arch to vertex following bolus intravenous administration of nonionic contrast. Axial thin section source images, as well as sagittal and coronal thin section reformats, were provided at the scanner. Additional multiplanar and 3D reconstructions were provided. CONTRAST: iohexol (OMNIPAQUE) 350 MG/ML injection 1-171 mL; Route of Administration: Intravenous; Dose: 100 mL. FINDINGS: CT ANGIOGRAM NECK: AORTIC ARCH: Conventional anatomic origin of the great vessels. No significant stenosis. RIGHT CAROTID ARTERY: Common carotid artery is patent and normal in caliber. Internal carotid artery origin at the bifurcation is patent and normal in caliber. More distal cervical segments of the internal carotid artery are patent and normal in caliber. LEFT CAROTID ARTERY: Common carotid artery is patent and normal in caliber. Internal carotid artery origin at the bifurcation demonstrates atherosclerotic plaque, without significant stenosis. More distal cervical segments of the internal carotid artery are patent and normal in caliber. RIGHT VERTEBRAL ARTERY: Origin is patent. More distal cervical segments are patent and normal in caliber. LEFT VERTEBRAL ARTERY: Origin is patent. More distal cervical segments are patent and normal in caliber. OTHER: No dissection or pseudoaneurysm. CT ANGIOGRAM HEAD: INTERNAL CAROTID ARTERIES: Atherosclerotic calcifications, without significant stenosis. ANTERIOR CEREBRAL ARTERIES: Patent and normal in caliber. MIDDLE CEREBRAL ARTERIES: Patent and normal in caliber. POSTERIOR CEREBRAL ARTERIES: Patent and normal in caliber. origin of the left USER INTERFACE ARTIST is noted. VERTEBRAL ARTERIES: Patent and normal in caliber. BASILAR ARTERY: Patent. No significant stenosis. OTHER: No aneurysm or AVM. ADDITIONAL FINDINGS: Degenerative changes visualized spine. Heterogeneous nodular thyroid. IMPRESSION IMPRESSION: No significant stenosis in the arteries of the neck and brain.. I personally viewed and interpreted these images and I have reviewed and approved this report. [facility] Radiology Study observation (narrative) [facility] CT Head and CT Brain for per fusion and CT angiogram Head vessels WO and W contrast IVOrdered By: Jean Jefferson on 03-06-2025 [facility] Work Phone: HIGH SENSITIVITY TROPONIN I - SINGLE ORDERon 03-06-2025 Interpretation and review of laboratory results Normal [facility] Troponin I.cardiac High sensitivity method [Mass/Vol] ng/L NINF - 34 ng/L [facility] hs-Troponin I <3 Normal <34 [facility] Comment on above: Order Comment: Acute Coronary Syndrome (ACS): Initial Evaluation and Management:[email or web address] Performed By: #### C PAUL, CRP, CMPN #### [facility] (DEFAULT) [address] [place] [id number] MAGNESIUMon 03-06-2025 Magnesium [Mass/Vol] 1.8 mg/dL 1.6 - 2 .6 mg/dL [facility] Magnesium [Mass/Vol] 1.8 mg/dL Normal 1.6-2.6 [facility] Comment on above: Performed By: #### C PAUL, CRP, CMPN #### [facility] (DEFAULT) [address] [place] [id number] NT-PRO B-TYPE NATRIURETIC PE PTIDEon 03-06-2025 Interpretation and review of laboratory results Normal [facility] Natriuretic peptide.B prohormone N-Terminal IA [Mass/Vol] 104 pg/mL NINF - 540 pg/mL [facility] Natriuretic peptide B (Bld) [Mass/Vol] 104 pg/mL Normal <=540 [facility] Comment on above: Order Comment: If hi story of congestive heart failure. Performed By: #### C PAUL, CRP, CMPN #### [facility] (DEFAULT) [address] [place] [phone] No Panel Informationon 03-06 [facility] Interpretation and review of laboratory results Normal [facility] PHOSPHATE, INORGANICon 03-06 Phosphate [Mass/Vol] 3 mg/dL 2.2 - 4 .6 mg/dL [facility] Phosphorous 3.0 mg/dL Normal 2.2-4.6 [facility] Comment on above: Performed By: #### C KB, CRP, CMPN #### [facility] (DEFAULT) [address] [place] [address]75 PT,INR,PTTon 03-06-2025 aPTT Coag (PPP) [Time] 31.[address] [facility] INR Coag (Bld) [Relative time] 1.2 {INR} High 0.9 - 1.1 [facility] Interpretation and review of laboratory results Abnormal [facility] PT Coag (PPP) [Time] 14.8 s High [facility] aPTT Coag (Bld) [Time] 31.5 s Normal 24.0-34.3 [facility] Comment on above: Order Comment: If pa tient is on Coumadin. Performed By: #### L AB980, ESR #### [facility] (DEFAULT) [address] [place] [id number] INR Coag (PPP) [Relative time] 1.2 {INR} High 0.9-1.1 [facility] Comment on above: Order Comment: If pa tient is on Coumadin. Performed By: #### L AB980, ESR #### [facility] (DEFAULT) [address] [place] [address]13 PT Coag (PPP) [Time] 14.8 s High 11.9-14.2 [facility] Comment on above: Order Comment: If pa tient is on Coumadin. Performed By: #### L AB980, ESR #### [facility] (DEFAULT) [address] [place] [phone] SEDIMENTATION RATE, AUTOMATE Don 03-06-2025 ESR (Bld) [Velocity] 30 mm/h High NINF [facility] Interpretation and review of laboratory results Abnormal [facility] ESR Westergren 30 mm/hr High <30 [facility] Comment on above: Performed By: #### L AB980, ESR #### [facility] (DEFAULT) [address] [place] [address] No Panel Informationon 01-25 IMPRESSION: Decreased bony mineralization No acute osseous abnormality of the ankle or foot Remote ligamentous injury of the ankle Calcaneal enthesopathy Forefoot and midfoot osteoarthritis OLOGY EXAM: XR ANKLE LEFT 3+ VIEWS, XR FOOT LEFT 3+ VIEWS, 01/25/2025 17:04 PM (accession [id number]), 01/25/2025 17:03 PM (accession [id number]) COMPARISON: No prior studies available for comparison. CLINICAL INDICATIONS: Tripped over cord, heard pop in her foot. Pain over plantar and dorsal aspect of foot, achilles RELEVANT CLINICAL HISTORY: M79.672:Left foot pain FINDINGS: 6 nonweight-bearing images obtained. Left ankle: Bony mineralization is diminished. No acute osseous abnormality. Remote ligamentous injury at the malleoli. Ankle mortise is preserved. No significant effusion. Calcaneal enthesopathy at the plantar aponeurosis insertion Left foot: Bony mineralization is diminished. No acute osseous abnormality. Forefoot and midfoot osteoarthritis. No pathologic soft tissue calcifications. RADIOLOGY Winnie Porter DO - 01/25/2025 EXAM: XR ANKLE LEFT 3+ VIEWS, XR FOOT LEFT 3+ VIEWS, 01/25/2025 17:04 PM (accession [id number]), 01/25/2025 17:03 PM (accession [id number]) COMPARISON: No prior studies available for comparison. CLINICAL INDICATIONS: Tripped over cord, heard pop in her foot. Pain over plantar and dorsal aspect of foot, achilles RELEVANT CLINICAL HISTORY: M79.672:Left foot pain FINDINGS: 6 nonweight-bearing images obtained. Left ankle: Bony mineralization is diminished. No acute osseous abnormality. Remote ligamentous injury at the malleoli. Ankle mortise is preserved. No significant effusion. Calcaneal enthesopathy at the plantar aponeurosis insertion Left foot: Bony mineralization is diminished. No acute osseous abnormality. Forefoot and midfoot osteoarthritis. No pathologic soft tissue calcifications. IMPRESSION IMPRESSION: Decreased bony mineralization No acute osseous abnormality of the ankle or foot Remote ligamentous injury of the ankle Calcaneal enthesopathy Forefoot and midfoot osteoarthritis [facility] No Panel InformationOrdered By: Winnie Porter on 01-25-2025 [facility] Work Phone: XR ANKLE LEFT 3+ VIEWSon XR ANKLE LEFT 3+ VIEWS EXAM: XR ANKLE LE FT 3+ VIEWS, XR FOOT LEFT 3+ VIEWS, 01/25/2025 17:04 PM (accession [id number]), 01/25/2025 17:03 PM (accession [id number]) COMPARISON: No prior studies available for comparison. CLINICAL INDICATIONS: Tripped over cord, heard pop in her foot. Pain over plantar and dorsal aspect of foot, achilles RELEVANT CLINICAL HISTORY: M79.672:Left foot pain FINDINGS: 6 nonweight-bearing images obtained. Left ankle: Bony mineralization is diminished. No acute osseous abnormality. Remote ligamentous injury at the malleoli. Ankle mortise is preserved. No significant effusion. Calcaneal enthesopathy at the plantar aponeurosis insertion Left foot: Bony mineralization is diminished. No acute osseous abnormality. Forefoot and midfoot osteoarthritis. No pathologic soft tissue calcifications. IMPRESSION: Decreased bony mineralization No acute osseous abnormality of the ankle or foot Remote ligamentous injury of the ankle Calcaneal enthesopathy Forefoot and midfoot osteoarthritis Normal [facility] XR Ankle - left 3 [facility] Study observation (narrative) [facility] XR FOOT LEFT 3+ VIEWSon 01-12 XR FOOT LEFT 3+ VIEWS EXAM: XR ANKLE LEF T 3+ VIEWS, XR FOOT LEFT 3+ VIEWS, 01/25/2025 17:04 PM (accession [id number]), 01/25/2025 17:03 PM (accession [id number]) COMPARISON: No prior studies available for comparison. CLINICAL INDICATIONS: Tripped over cord, heard pop in her foot. Pain over plantar and dorsal aspect of foot, achilles RELEVANT CLINICAL HISTORY: M79.672:Left foot pain FINDINGS: 6 nonweight-bearing images obtained. Left ankle: Bony mineralization is diminished. No acute osseous abnormality. Remote ligamentous injury at the malleoli. Ankle mortise is preserved. No significant effusion. Calcaneal enthesopathy at the plantar aponeurosis insertion Left foot: Bony mineralization is diminished. No acute osseous abnormality. Forefoot and midfoot osteoarthritis. No pathologic soft tissue calcifications. IMPRESSION: Decreased bony mineralization No acute osseous abnormality of the ankle or foot Remote ligamentous injury of the ankle Calcaneal enthesopathy Forefoot and midfoot osteoarthritis Normal [facility] XR Foot - left 3 [facility] Rad[facility] Study observation (narrative) [facility] [employer] COXSACKIE B1 Ab 1:100 Abnormal Neg:<1:100 [facility] Comment on above: Performed By: #### L 506.0400, L506.1000, L509.1000, L801.1541, L501.9520, L3300.0960, L501.5101, L501.16009, L3300.6900, L3100.5450, L3300.7027 #### [facility] [address] [facility] [place], [place], [id number] [employer] B2 Ab Negative Normal Neg:<1:100 [facility] Comment on above: Performed By: #### L 506.0400, L506.1000, L509.1000, L801.1541, L501.9520, L3300.0960, L501.5101, L501.98088, L3300.6900, L3100.5450, L3300.7027 #### [facility] [address] [facility] [place], [place], [id number] [employer] B3 Ab Negative Normal Neg:<1:100 [facility] Comment on above: Performed By: #### L 506.0400, L506.1000, L509.1000, L801.1541, L501.9520, L3300.0960, L501.5101, L501.75921, L3300.6900, L3100.5450, L3300.7027 #### [facility] [address] [place], [place], [id number] [employer] B4 Ab Negative Normal Neg:<1:100 [facility] Comment on above: Performed By: #### L 506.0400, L506.1000, L509.1000, L801.1541, L501.9520, L3300.0960, L501.5101, L501.45119, L3300.6900, L3100.5450, L3300.7027 #### [facility] [address] [place], [place], [id number] [employer] B5 Ab 1:500 Abnormal Neg:<1:100 [facility] Comment on above: Performed By: #### L 506.0400, L506.1000, L509.1000, L801.1541, L501.9520, L3300.0960, L501.5101, L501.94992, L3300.6900, L3100.5450, L3300.7027 #### [facility] [address] [place], [place], [id number] [employer] B6 Ab Negative Normal Neg:<1:100 [facility] Comment on above: Performed By: #### L 506.0400, L506.1000, L509.1000, L801.1541, L501.9520, L3300.0960, L501.5101, L501.06615, L3300.6900, L3100.5450, L3300.7027 #### [facility] [address] [place], [address] IgG Subclasseson 12-26-2024 IgG, SUBCLASS 1 375 mg/dL Normal 248-810 [facility] Comment on above: Performed By: #### L 506.0400, L506.1000, L509.1000, L801.1541, L501.9520, L3300.0960, L501.5101, L501.75380, L3300.6900, L3100.5450, L3300.7027 #### [facility] [address] [place], [address] IgG, SUBCLASS 2 296 mg/dL Normal 130-555 [facility] Comment on above: Performed By: #### L 506.0400, L506.1000, L509.1000, L801.1541, L501.9520, L3300.0960, L501.5101, L501.03875, L3300.6900, L3100.5450, L3300.7027 #### [facility] [address] [place], [address] IgG, SUBCLASS 3 15 mg/dL Normal 15-102 [facility] Comment on above: Performed By: #### L 506.0400, L506.1000, L509.1000, L801.1541, L501.9520, L3300.0960, L501.5101, L501.77828, L3300.6900, L3100.5450, L3300.7027 #### [facility] [address], [address] IgG, SUBCLASS 4 67 mg/dL Normal 2-96 [facility] Comment on above: Performed By: #### L 506.0400, L506.1000, L509.1000, L801.1541, L501.9520, L3300.0960, L501.5101, L501.93046, L3300.6900, L3100.5450, L3300.7027 #### [facility] [address], [address] IGG,QUANT 865 mg/dL Normal 586-1602 [facility] Comment on above: Performed By: #### L 506.0400, L506.1000, L509.1000, L801.1541, L501.9520, L3300.0960, L501.5101, L501.90748, L3300.6900, L3100.5450, L3300.7027 #### [facility] [address] [place], [address] Immunoglobulins G/A/M/Armand IMMUNOGLOB A QN 285 mg/dL Normal 87-352 [facility] Comment on above: Order Comment: N Performed By: #### L 506.0400, L506.1000, L509.1000, L801.1541, L501.9520, L3300.0960, L501.5101, L501.67441, L3300.6900, L3100.5450, L3300.7027 #### [facility] [address] [place], [address] IMMUNOGLOB E QN 89 IU/mL Normal 6-495 [facility] Comment on above: Order Comment: N Performed By: #### L 506.0400, L506.1000, L509.1000, L801.1541, L501.9520, L3300.0960, L501.5101, L501.11774, L3300.6900, L3100.5450, L3300.7027 #### [facility] [address] [place], [address] IMMUNOGLOB M QN 43 mg/dL Normal 26-217 [facility] Comment on above: Order Comment: N Performed By: #### L 506.0400, L506.1000, L509.1000, L801.1541, L501.9520, L3300.0960, L501.5101, L501.96130, L3300.6900, L3100.5450, L3300.7027 #### [facility] [address] [place], [place], [address] Lipoprotein Aon 12-26-2024 Lipoprotein a [Moles/Vol] 31.7 nmol/L Normal <75.0 [facility] Comment on above: Result Comment: Note : Values greater than or equal to 75.0 nmol/L may indicate an independent risk factor for CHD, but must be evaluated with caution when applied to non- populations due to the influence of genetic factors on Lp(a) across ethnicities. Performed at: [address] [id number] Continuous Improvement Lead: Bessie Mckinnon MD, Phone: [phone] Performed at: [address] [id number] Continuous Improvement Lead: Jann Clancy PhD, Phone: [phone] Performed By: #### L 506.0400, L506.1000, L509.1000, L801.1541, L501.9520, L3300.0960, L501.5101, L501.86126, L3300.6900, L3100.5450, L3300.7027 #### [facility] [address] [place], [place], [address] [facility].on 12-20-2024 [facility]. COMMENT Normal . [facility] Comment on above: Order Comment: [id number] TIGER RT Result Comment: Test Ordered: [id number] HHV 6 IgG Antibodies HHV 6 IgG Antibodies 3.26 [H ] index BN Reference Range: . Negative <0.90 Equivocal 0.90 - 1.10 Positive >1.10 Results of this test are labeled for research purposes only by the assay's wildland firefighter. The performance characteristics of this assay have not been established by the wildland firefighter. The result should not be used for treatment or for diagnostic purposes without confirmation of the diagnosis by another medically established diagnostic product or procedure. The performance characteristics were determined by [facility]. Performed at: [address] [id number] Continuous Improvement Lead: Bessie Mckinnon MD, Phone: [phone] Performed at: [address] [id number] Continuous Improvement Lead: Jann Clancy PhD, Phone: [phone] Performed By: #### L 3410.9998 #### [facility] [address] [place], [address] Order Comment: [id number] TIGER RT Result Comment: Test Ordered: [id number] Human Herpes Virus Type 6 IgM Test(s) 412254-[id number] Herpes Virus Type 6 IgM was developed and its performance characteristics determined by [facility]. It has not been cleared or approved by the Food and Drug Administration. Human Herpes Virus Type 6 IgM <1:10 Reference Range: Neg:<1:10 Performed at: [address] [id number] Continuous Improvement Lead: Bessie Mckinnon MD, Phone: [phone] Performed at: [address] [id number] Continuous Improvement Lead: Jann Clancy PhD, Phone: [phone] Performed By: #### L 506.0400, L506.1000, L509.1000, L801.1541, L501.9520, L3300.0960, L501.5101, L501.89463, L3300.6900, L3100.5450, L3300.7027 #### [facility] [address] [place], [address] Basic metabolic 2000 panelon 12-18-2024 Anion gap [Moles/Vol] 5 mmol/L Low 6 - [address] [facility] Calcium [Mass/Vol] 9.3 mg/dL 8.9 - 10. 3 mg/dL [facility] Chloride [Moles/Vol] 108 mmol/L High 98 - 10 7 mmol/L [facility] CO2 [Moles/Vol] 26 mmol/L 22 - 32 mmol/L [facility] Creatinine [Mass/Vol] 0.6 mg/dL 0.60 - 1.30 mg/dL [facility] GFR/1.73 sq M.predicted among non-blacks MDRD (S/P/Bld) [Vol rate/Area] 96 mL/min/{1.73_m2} - PINF [facility] Comment on above: Calculation based on the Chronic Kidney Disease Epidemiology Collaboration (CKD-EPI) equation refit without adjustment for race. Glucose [Mass/Vol] 131 mg/dL High 70 - 99 mg/dL [facility] Interpretation and review of laboratory results Abnormal [facility] Potassium [Moles/Vol] 3.9 mmol/L 3.6 - 5.1 mmol/L [employer] Sodium [Moles/Vol] 139 mmol/L 136 - 145 mmol/L [facility] Urea nitrogen [Mass/Vol] 16 mg/dL 8 - 20 mg/dL [facility] Urea nitrogen/Creatinine [Mass ratio] 26.7 mg/mg High 12.0 - 20.[address] [facility] [address] ABDOMEN PELVIS W CONTRAST on 12-18-2024 CT ABDOMEN PELVIS W CONTRAST EXAMINATION TYPE: CT ABDOMEN PELVIS W CONTRAST DATE OF EXAM : 12/18/2024 1:55 AM HISTORY: Abdominal pain, acute, nonlocalized, COMPARISON: None FINDINGS: CT ABDOMEN Lung bases are clear. Mild multichamber cardiomegaly. 56 mm cyst in the right lobe of the liver. Parapelvic cysts in both kidneys. Nonobstructing stones in both kidneys. Spleen and adrenal glands are normal. Mild atrophy of the pancreas. Diameter of the abdominal aorta is normal. Multiple gallstones in the gallbladder lumen. No gallbladder wall thickening or ductal dilatation. No intra-abdominal free air or free fluid. No abnormally dilated loops of bowel. The appendix is normal. Small umbilical hernia containing only fat. No compression fracture in the lumbar spine. Sclerotic focus in the L2 vertebral body is likely a benign bone island. CT PELVIS Multiple diverticula in the descending colon and sigmoid, without diverticulitis. Bladder is normal. Uterus and ovaries are normal. No pelvic mass or free fluid. No pelvic or inguinal lymphadenopathy. Pelvic bones and hips are normal. IMPRESSION: 1. Normal appendix 2. Cholelithiasis. No CT evidence of acute cholecystitis 3. Nonobstructing stones in both kidneys 4. Benign cysts in both kidneys and in the liver 5. Cardiomegaly 6. Moderate uncomplicated diverticulosis. No diverticulitis. 7. Small umbilical hernia containing only fat -------- FINAL REPORT -------- Dictated By: Peter Hansen Dictated Date: 12/18/2024 02:16 Assigned Physician: Peter Hansen Reviewed and Electronically Signed By: Peter Hansen Signed Date: 12/18/2024 02:19 Workstation ID: [id number] Transcribed By: Self Edit Transcribed Date: 12/18/2024 02:[address] [facility] [address] Abdomen and Pelvis W cont rast Keely 12-18-2024 1. Normal appendix 2. Cholelithiasis. No CT evidence of acute cholecystitis 3. Nonobstructing stones in both kidneys 4. Benign cysts in both kidneys and in the liver 5. Cardiomegaly 6. Moderate uncomplicated diverticulosis. No diverticulitis. 7. Small umbilical hernia containing only fat -------- FINAL REPORT -------- Dictated By: Peter Hansen Dictated Date: 12/18/2024 02:16 Assigned Physician: Peter Hansen Reviewed and Electronically Signed By: Peter Hansen Signed Date: 12/18/2024 02:19 Workstation ID: [id number] Transcribed By: Self Edit Transcribed Date: 12/18/2024 02:16 [email or web address] EXAMINATION TYPE: CT ABDOMEN PELVIS W CONTRAST DATE OF EXAM : 12/18/2024 1:55 AM HISTORY: Abdominal pain, acute, nonlocalized, COMPARISON: None FINDINGS: CT ABDOMEN Lung bases are clear. Mild multichamber cardiomegaly. 56 mm cyst in the right lobe of the liver. Parapelvic cysts in both kidneys. Nonobstructing stones in both kidneys. Spleen and adrenal glands are normal. Mild atrophy of the pancreas. Diameter of the abdominal aorta is normal. Multiple gallstones in the gallbladder lumen. No gallbladder wall thickening or ductal dilatation. No intra-abdominal free air or free fluid. No abnormally dilated loops of bowel. The appendix is normal. Small umbilical hernia containing only fat. No compression fracture in the lumbar spine. Sclerotic focus in the L2 vertebral body is likely a benign bone island. CT PELVIS Multiple diverticula in the descending colon and sigmoid, without diverticulitis. Bladder is normal. Uterus and ovaries are normal. No pelvic mass or free fluid. No pelvic or inguinal lymphadenopathy. Pelvic bones and hips are normal. POWERSCRIBE Peter Hansen MD - 12/18/2024 EXAMINATION TYPE: CT ABDOMEN PELVIS W CONTRAST DATE OF EXAM : 12/18/2024 1:55 AM HISTORY: Abdominal pain, acute, nonlocalized, COMPARISON: None FINDINGS: CT ABDOMEN Lung bases are clear. Mild multichamber cardiomegaly. 56 mm cyst in the right lobe of the liver. Parapelvic cysts in both kidneys. Nonobstructing stones in both kidneys. Spleen and adrenal glands are normal. Mild atrophy of the pancreas. Diameter of the abdominal aorta is normal. Multiple gallstones in the gallbladder lumen. No gallbladder wall thickening or ductal dilatation. No intra-abdominal free air or free fluid. No abnormally dilated loops of bowel. The appendix is normal. Small umbilical hernia containing only fat. No compression fracture in the lumbar spine. Sclerotic focus in the L2 vertebral body is likely a benign bone island. CT PELVIS Multiple diverticula in the descending colon and sigmoid, without diverticulitis. Bladder is normal. Uterus and ovaries are normal. No pelvic mass or free fluid. No pelvic or inguinal lymphadenopathy. Pelvic bones and hips are normal. IMPRESSION: 1. Normal appendix 2. Cholelithiasis. No CT evidence of acute cholecystitis 3. Nonobstructing stones in both kidneys 4. Benign cysts in both kidneys and in the liver 5. Cardiomegaly 6. Moderate uncomplicated diverticulosis. No diverticulitis. 7. Small umbilical hernia containing only fat -------- FINAL REPORT -------- Dictated By: Peter Hansen Dictated Date: 12/18/2024 02:16 Assigned Physician: Peter Hansen Reviewed and Electronically Signed By: Peter Hansen Signed Date: 12/18/2024 02:19 Workstation ID: [id number] Transcribed By: Self Edit Transcribed Date: 12/18/2024 02:16 [facility] Study observation (narrative) [facility] CT Abdomen and Pelvis W cont rast IVOrdered By: Peter Hansen on 12-18-2024 [facility] Work Phone: Hemogram and platelets WO di fferential panel (Bld)on 12-18-2024 Erythrocyte distribution width (RBC) [Ratio] 13.4 % 11.0 - 14.8 % [facility] Hematocrit (Bld) [Volume fraction] 43.7 % 34.3 - 47.9 % [facility] Hemoglobin (Bld) [Mass/Vol] 14.9 g/dL 12.0 - 16.0 g/dL [facility] Interpretation and review of laboratory results Abnormal [facility] MCH (RBC) [Entitic mass] 32.3 pg [facility] MCHC (RBC) [Mass/Vol] 34.1 g/dL 30.8 - 35.3 g/dL [facility] MCV (RBC) [Entitic vol] 94.8 fL [facility] Platelet mean volume (Bld) [Entitic vol] 10 fL [facility] Platelets (Bld) [#/Vol] 283 10*3/uL [facility] RBC (Bld) [#/Vol] 4.61 10*6/uL [facility] WBC (Bld) [#/Vol] 11.7 10*3/uL [facility] Erythrocyte distribution width (RBC) [Ratio] 13.4 % Normal 11.0-14.8 [facility] Comment on above: Performed By: #### 2 4317-0 #### [facility] [address] [place] [address] Hematocrit (Bld) [Volume fraction] 43.7 % Normal 34.3-47.9 [facility] Comment on above: Performed By: #### 2 4317-0 #### [facility] [address] [place] [address] Hemoglobin (Bld) [Mass/Vol] 14.9 g/dL Normal 12.0-16.0 [facility] Comment on above: Performed By: #### 2 4317-0 #### [facility] [address] [place] [address] MCH 32.3 pcg Normal 27.0-34.0 [facility] Comment on above: Performed By: #### 2 4317-0 #### [facility] [address] [place] [address] MCHC (RBC) [Mass/Vol] 34.1 g/dL Normal 30.8-35.[address] [facility] Comment on above: Performed By: #### 2 4317-0 #### [facility] [address] [place] [address] MCV (RBC) [Entitic vol] 94.8 fL Normal 80.0-97.0 [facility] Comment on above: Performed By: #### 2 4317-0 #### [facility] [address] [place] [address] Platelet mean volume (Bld) [Entitic vol] 10.0 fL Normal 6.2-12.1 [facility] Comment on above: Performed By: #### 2 4317-0 #### [facility] [address] [place] [address] Platelets (Bld) [#/Vol] 283 10*3/uL Normal 142-424 [facility] Comment on above: Performed By: #### 2 4317-0 #### [facility] [address] [place] [address] RBC (Bld) [#/Vol] 4.61 10*6/uL Normal 3.74-5.34 [facility] Comment on above: Performed By: #### 2 4317-0 #### [facility] [address] [place] [address] WBC (Bld) [#/Vol] 11.7 10*3/uL High 4.6-10.2 [facility] Comment on above: Performed By: #### 2 4317-0 #### [facility] [address] [place] [address] Hepatic function 2000 panelo n 04-06-2025 Albumin [Mass/Vol] 3.9 g/dL 3.5 - 4.8 g/dL Tr [facility] ALP [Catalytic activity/Vol] 189 U/L High [facility] ALT [Catalytic activity/Vol] 17 U/L [facility] AST [Catalytic activity/Vol] 14 U/L Low [facility] Bilirubin [Mass/Vol] 0.5 mg/dL 0.3 - 1 .2 mg/dL [facility] Bilirubin.direct [Mass/Vol] 0.1 mg/dL NINF - 0.5 mg/dL [facility] Bilirubin.indirect [Mass/Vol] 0.4 mg/dL 0.0 - 1.0 mg/dL [facility] Interpretation and review of laboratory results Abnormal [facility] Protein [Mass/Vol] 6.5 g/dL 6.1 - 7.9 g/dL Tr [facility] Albumin [Mass/Vol] 3.9 g/dL Normal 3.5-4.8 [facility] Comment on above: Performed By: #### 2 4325-3 #### [facility] [address] [place] [address] ALP [Catalytic activity/Vol] 189 U/L High 32-91 [facility] Comment on above: Performed By: #### 2 4325-3 #### [facility] [address] [place] [address] ALT [Catalytic activity/Vol] 17 U/L Normal 7-52 [facility] Comment on above: Performed By: #### 2 4325-3 #### [facility] [address] [place] [address] AST [Catalytic activity/Vol] 14 U/L Low 15-41 [facility] Comment on above: Performed By: #### 2 4325-3 #### [facility] [address] [place] [address] Bilirubin [Mass/Vol] 0.5 mg/dL Normal 0.3-1.2 [facility]oun [facility] Comment on above: Performed By: #### 2 4325-3 #### [facility] [address] [place] [address] Bilirubin, Indirect 0.4 mg/dL Normal 0.0-1.0 [facility] Comment on above: Performed By: #### 2 4325-3 #### [facility] [address] [place] [address] Bilirubin.indirect [Mass/Vol] 0.1 mg/dL Normal <=0.5 [facility] Comment on above: Performed By: #### 2 4325-3 #### [facility] [address] [place] [address] Protein [Mass/Vol] 6.5 g/dL Normal 6.1-7.9 [facility] Comment on above: Performed By: #### 2 4325-3 #### [facility] [address] [place] [address] Laboratory - Specimen inform ationon 12-18-2024 Specimen source Nom (Unsp spec) Hold for add-ons. [facility] Comment on above: Auto resulted. Lactate (Bld) [Mass/Vol]on 0 12-18-2024 Lactate [Moles/Vol] 1.2 mmol/L 0.5 - 2. 0 mmol/L [facility] Lactate [Moles/Vol] 1.2 mmol/L Normal 0.5-2.0 [facility] Comment on above: Performed By: #### 5 9032-3 #### [facility] [address] [place] [address] Lipaseon 12-18-2024 Lipase [Catalytic activity/Vol] 35 U/L [facility] Magnesiumon 12-18-2024 Magnesium [Mass/Vol] 1.8 mg/dL 1.8 - 2 .5 mg/dL [facility] Magnesium [Mass/Vol]on 12-18 High Sensitivity Troponin I 5 ng/L Normal <14 [facility] Comment on above: Performed By: #### 1 9123-9 #### [facility] [address] [place] [address] No Panel Informationon 12-18 [facility] Interpretation and review of laboratory results [facility] Tropinin I.cardiac panel Hig h sensitivity methodon 12-18-2024 Interpretation and review of laboratory results Normal [facility] Troponin I.cardiac High sensitivity method [Mass/Vol] 5 ng/L NINF - 14 ng/L [employer] Urinalysis dipstick W Reflex Culture panel (U)on 12-18-2024 Bacteria LM.HPF (Urine sed) [#/Area] Rare Abnormal None /HPF [facility] Bilirubin Ql (U) Negative Negative mg/dL [employer] Calcium oxalate crystals LM.HPF (Urine sed) [#/Area] Many Abnormal None /HPF [facility] Clarity (U) Hazy Abnormal Clear [facility] Color (U) Yellow Yellow [facility] Epithelial cells.squamous LM.HPF (Urine sed) [#/Area] Rare Abnormal None /LPF [facility] Glucose Ql (U) Normal Normal mg/dL [facility] Hemoglobin Ql (U) Trace Negative, Trace [facility] Interpretation and review of laboratory results Abnormal [facility] Ketones (U) [Mass/Vol] 20 mg/dL Abnormal Negative Tr [facility] Leukocyte esterase Test strip Ql (U) 500 Abnormal Negative WBCs/mcL [facility] Mucus Ql (Urine sed) Rare Abnormal None /LPF [employer] Nitrite Ql (U) Negative Negative [facility] pH (U) 5.5 [pH] 5.0 - 8.0 pH [facility] Protein (U) [Mass/Vol] 30 mg/dL Abnormal Negative Tr [facility] RBC LM.HPF (Urine sed) [#/Area] 6 /[HPF] High [facility] Specific gravity (U) [Rel density] 1.026 1.002 - 1.030 [facility] Urobilinogen (U) [Mass/Vol] Normal Normal mg/dL [facility] WBC LM.HPF (Urine sed) [#/Area] 131 /[HPF] High [facility] Bacteria, Urine Rare Abnormal None [facility] Comment on above: Performed By: #### 5 7019-2 #### [facility] [place] [facility] [address] [place] [address] Bilirubin, Urine Negative Normal Negative [facility] Comment on above: Performed By: #### 5 70-2 #### [facility] [place] [facility] [address] [place] [address] Blood, Urine Trace Normal Negative, Trace [facility] Comment on above: Performed By: #### 5 7019-2 #### [facility] [place] [facility] [address] [place] [address] Calcium Oxalate Crystals, Urine Many Abnormal None [facility] Comment on above: Performed By: #### 5 70-2 #### [facility] [place] [facility] [address] [place] [address] Clarity (U) Hazy Abnormal Clear [facility] Comment on above: Performed By: #### 5 7019-2 #### [facility] [place] [facility] [address] [place] [address] Color (U) Yellow Normal Yellow [facility] Comment on above: Performed By: #### 5 7019-2 #### [facility] [place] [facility] [address] [place] [address] Glucose Ql (U) Normal Normal Normal [facility] Comment on above: Performed By: #### 5 7019-2 #### [facility] [place] [facility] [address] [place] [address] Ketones Ql (U) 20 mg/dL Abnormal Negative [facility] Comment on above: Performed By: #### 5 7019-2 #### [facility] [place] [facility] [address] [place] [address] Leukocytes, Urine 500 WBCs/mcL Abnormal Negative [facility] Comment on above: Performed By: #### 5 7019-2 #### [facility] [address] [place] [address] Mucus, UA Rare Abnormal None [facility] Comment on above: Performed By: #### 5 7019-2 #### [facility] ([facility] [address] [place] [address] Nitrite, Urine Negative Normal Negative [facility] Comment on above: Performed By: #### 5 7019-2 #### [facility] ([facility] [address] [place] [address] pH (U) 5.5 [pH] Normal 5.0-8.0 [facility] Comment on above: Performed By: #### 5 7019-2 #### [facility] ([facility] [address] [place] [address] Protein (U) [Mass/Vol] 30 mg/dL Abnormal Negative [facility] Comment on above: Performed By: #### 5 7019-2 #### [facility] ([facility] [address] [place] [address] RBC LM.HPF (Urine sed) [#/Area] 6 /[HPF] High 0-5 [facility] Comment on above: Performed By: #### 5 7019-2 #### [facility] ([facility] [address] [place] [address] Specific [place] Urine 1.026 Normal 1.002-1.030 [facility] Comment on above: Performed By: #### 5 7019-2 #### [facility] ([facility] [address] [place] [address] Squamous Epithelial, Urine Rare Abnormal None [facility] Comment on above: Performed By: #### 5 7019-2 #### [facility] [place] [facility] [address] [place] [address] Urobilinogen, Urine Normal Normal Normal [facility] Comment on above: Performed By: #### 5 7019-2 #### [facility] [place] [facility] [address] [place] [address] WBC LM.HPF (Urine sed) [#/Area] 131 /[HPF] High 0-5 [facility] Comment on above: Performed By: #### 5 7019-2 #### [facility] [place] [facility] [address] [place] [address] Bacteria identified Cx Nom (U) 1 ORGANISM 253 Abnormal >100,000 CFU/mL Klebsiella oxytoca Performed on [id number] This is an edited result. Previous organism was Gram negative bacilli on 12/19/2024 at 1300 EDT. 1 ORGANISM Antibiotic Result Intrp Amoxicillin+Clav Susc Islt >=32 ug/ml Resistant Ampicillin Susc Islt >=32 ug/ml Resistant ceFAZolin Susc Islt >=32 ug/ml Resistant Cefepime Susc Islt >=32 ug/ml Resistant Cefpodoxime Spec-mCnc >=8 ug/ml Resistant cefTRIAXone Susc Islt >=64 ug/ml Resistant Cefuroxime Susc Islt >=64 ug/ml Resistant Ciprofloxacin Susc Islt <=0.06 ug/ml Susceptible Ertapenem Islt SONY <=0.12 ug/ml Susceptible Nitrofurantoin Susc Islt <=16 ug/ml Susceptible Tobramycin Susc Islt <=1 ug/ml Susceptible TMP SMX Susc Islt <=20 ug/ml Susceptible Invalid Interpretation Code [facility] Comment on above: Performed By: #### 5 7019-2 #### [facility] [place] [facility] [address] [place] [address] XR CHEST 1 VIEWon 12-18-2024 XR CHEST 1 VIEW EXAMINATION TYPE: XR CHEST 1 VIEW -Portable,12/18/2024 3:01 AM HISTORY: vomiting, COMPARISON: CT abdomen earlier today Findings: Lungs are clear. Heart is mildly enlarged. Mediastinum and pulmonary vasculature are within normal limits. IMPRESSION: Impression: 1. Clear lungs 2. Borderline cardiomegaly -------- FINAL REPORT -------- Dictated By: Peter Hansen Dictated Date: 12/18/2024 03:08 Assigned Physician: Peter Hansen Reviewed and Electronically Signed By: Peter Hansen Signed Date: 12/18/2024 03:09 Workstation ID: [id number] Transcribed By: Self Edit Transcribed Date: 12/18/2024 03:08 Normal [facility] XR Chest Single viewon 12-18 Impression: 1. Clear lungs 2. Borderline cardiomegaly -------- FINAL REPORT -------- Dictated By: Peter Hansen Dictated Date: 12/18/2024 03:08 Assigned Physician: Peter Hansen Reviewed and Electronically Signed By: Peter Hansen Signed Date: 12/18/2024 03:09 Workstation ID: [id number] Transcribed By: Self Edit Transcribed Date: 12/18/2024 03:08 POWERS[facility]IBE EXAMINATION TYPE: XR CHEST 1 VIEW -Portable,12/18/2024 3:01 AM HISTORY: vomiting, COMPARISON: CT abdomen earlier today Findings: Lungs are clear. Heart is mildly enlarged. Mediastinum and pulmonary vasculature are within normal limits. POWERSCRIBE Peter Hansen MD - 12/18/2024 EXAMINATION TYPE: XR CHEST 1 VIEW -Portable,12/18/2024 3:01 AM HISTORY: vomiting, COMPARISON: CT abdomen earlier today Findings: Lungs are clear. Heart is mildly enlarged. Mediastinum and pulmonary vasculature are within normal limits. IMPRESSION: Impression: 1. Clear lungs 2. Borderline cardiomegaly -------- FINAL REPORT -------- Dictated By: Peter Hansen Dictated Date: 12/18/2024 03:08 Assigned Physician: Peter Hansen Reviewed and Electronically Signed By: Peter Hansen Signed Date: 12/18/2024 03:09 Workstation ID: [id number] Transcribed By: Self Edit Transcribed Date: 12/18/2024 03:08 [facility] Radiology Study observation (narrative) [facility] L803.0600on 2024 HOMOCYSTEINE 12.2 umol/L Normal 0.0-17.2 [facility] Comment on above: Result Comment: Perf ormed at: CB - [facility] [address] [id number] Continuous Improvement Lead: Jann Clancy PhD, Phone: [phone] Performed By: #### L 506.0400, L506.1000, L509.1000, L801.1541, L501.9520, L3300.0960, L501.5101, L501.60905, L3300.6900, L3100.5450, L3300.7027 #### [facility] Laboratory [facility] [address] [facility] [place], [place], [address] Absolute neutrophil countOrd ered By: Krys Lucero on 12-15-2024 Neutrophils (Bld) [#/Vol] 5.1 10*3/uL 2.0-7.7 [facility] Anion gap in Serum or Plasma Ordered By: Krys Lucero on 12-15-2024 Anion gap [Moles/Vol] 12 mmol/L 5-15 [facility] BUN/creatinine ratioOrdered By: Krys Lucero on 12-15-2024 Urea nitrogen/Creatinine [Mass ratio] 27.9 mg/mg High 10-20 [facility] Basophil percentageOrdered B y: Krys Lucero on 12-15-2024 Basophils/100 WBC (Bld) 0.5 % 0-1 [facility] Bilirubin, totalOrdered By: Krys Lucero on 12-15-2024 Bilirubin [Mass/Vol] 0.38 mg/dL 0.00-1.30 [facility] CBC W/Diff, Automatedon 04-0 Absolute Lymph 1.99 X10 3/uL Normal 0.83-4.51 [facility] Comment on above: Performed By: #### L 506.0400, L506.1000, L509.1000, L801.1541, L501.9520, L3300.0960, L501.5101, L501.21027, L3300.6900, L3100.5450, L3300.7027 #### [facility] [address] [place], [address] Absolute Neut 5.1 X10 3/uL Normal 2.0-7.7 [facility] Comment on above: Performed By: #### L 506.0400, L506.1000, L509.1000, L801.1541, L501.9520, L3300.0960, L501.5101, L501.42743, L3300.6900, L3100.5450, L3300.7027 #### [facility] [address] [place], [place], [phone] ([phone]) Basophils/100 WBC (Bld) 0.5 % Normal 0-1 [facility] Comment on above: Performed By: #### L 506.0400, L506.1000, L509.1000, L801.1541, L501.9520, L3300.0960, L501.5101, L501.26702, L3300.6900, L3100.5450, L3300.7027 #### [facility] [address] [place], [place], [phone] (662) Eosinophils/100 WBC (Bld) 1.3 % Normal 0-5 [facility] Comment on above: Performed By: #### L 506.0400, L506.1000, L509.1000, L801.1541, L501.9520, L3300.0960, L501.5101, L501.37531, L3300.6900, L3100.5450, L3300.7027 #### [facility] [address] [place], [place], [phone] (325) Erythrocyte distribution width (RBC) [Ratio] 13.7 % Normal 11.6-14.6 [facility] Comment on above: Performed By: #### L 506.0400, L506.1000, L509.1000, L801.1541, L501.9520, L3300.0960, L501.5101, L501.45503, L3300.6900, L3100.5450, L3300.7027 #### [facility] [address] [facility] [place], [place], [phone] ([phone]) Hematocrit (Bld) [Volume fraction] 44.0 % Normal 37-47 [facility] Comment on above: Performed By: #### L 506.0400, L506.1000, L509.1000, L801.1541, L501.9520, L3300.0960, L501.5101, L501.39092, L3300.6900, L3100.5450, L3300.7027 #### [facility] [address] [facility] [place], [place], [phone] (595) Hemoglobin (Bld) [Mass/Vol] 15.0 g/dL Normal 12.0-15.0 [facility] Comment on above: Performed By: #### L 506.0400, L506.1000, L509.1000, L801.1541, L501.9520, L3300.0960, L501.5101, L501.79572, L3300.6900, L3100.5450, L3300.7027 #### [facility] [address] [facility] [place], [place], [phone] IG% 0.200 Normal 0.0-0.9 [facility] Comment on above: Result Comment: IG% - Immature Granulocytes (promyelocytes, myelocytes and metamyelocytes) > 1% indicates that a LEFT SHIFT is Present. Performed By: #### L 506.0400, L506.1000, L509.1000, L801.1541, L501.9520, L3300.0960, L501.5101, L501.94666, L3300.6900, L3100.5450, L3300.7027 #### [facility] [address] [place], [address] Lymphocytes/100 WBC (Bld) 24.4 % Normal 19-41 [facility] Comment on above: Performed By: #### L 506.0400, L506.1000, L509.1000, L801.1541, L501.9520, L3300.0960, L501.5101, L501.15754, L3300.6900, L3100.5450, L3300.7027 #### [facility] [address] [place], [address] MCH (RBC) [Entitic mass] 32.3 pg High 27.0-32.0 [facility] Comment on above: Performed By: #### L 506.0400, L506.1000, L509.1000, L801.1541, L501.9520, L3300.0960, L501.5101, L501.40715, L3300.6900, L3100.5450, L3300.7027 #### [facility] [address] [place], [address] MCHC (RBC) [Mass/Vol] 34.1 g/dL Normal 32-36 [facility] Comment on above: Performed By: #### L 506.0400, L506.1000, L509.1000, L801.1541, L501.9520, L3300.0960, L501.5101, L501.45364, L3300.6900, L3100.5450, L3300.7027 #### [facility] [address] [place], [address] MCV (RBC) [Entitic vol] 94.6 fL Normal 81-99 [facility] Comment on above: Performed By: #### L 506.0400, L506.1000, L509.1000, L801.1541, L501.9520, L3300.0960, L501.5101, L501.96840, L3300.6900, L3100.5450, L3300.7027 #### [facility] [address] [facility] [place], [address] Monocytes/100 WBC (Bld) 11.4 % High 0-10 [facility] Comment on above: Performed By: #### L 506.0400, L506.1000, L509.1000, L801.1541, L501.9520, L3300.0960, L501.5101, L501.36133, L3300.6900, L3100.5450, L3300.7027 #### [facility] [address] [facility] [place], [address] Neutrophils/100 WBC (Bld) 62.2 % Normal 47-70 [facility] Comment on above: Performed By: #### L 506.0400, L506.1000, L509.1000, L801.1541, L501.9520, L3300.0960, L501.5101, L501.55605, L3300.6900, L3100.5450, L3300.7027 #### [facility] [address] [facility] [place], [address] Nucleated RBC (Bld) [#/Vol] 0 10*3/uL Normal 0-5 [facility] Comment on above: Performed By: #### L 506.0400, L506.1000, L509.1000, L801.1541, L501.9520, L3300.0960, L501.5101, L501.65989, L3300.6900, L3100.5450, L3300.7027 #### [facility] [address] [facility] [place], [address] Platelet mean volume (Bld) [Entitic vol] 10.3 fL Normal 6.2-12.0 [facility] Comment on above: Performed By: #### L 506.0400, L506.1000, L509.1000, L801.1541, L501.9520, L3300.0960, L501.5101, L501.96860, L3300.6900, L3100.5450, L3300.7027 #### [facility] [address] [place], [address] Platelets (Bld) [#/Vol] 316 10*3/uL Normal 150-450 [facility] Comment on above: Performed By: #### L 506.0400, L506.1000, L509.1000, L801.1541, L501.9520, L3300.0960, L501.5101, L501.56656, L3300.6900, L3100.5450, L3300.7027 #### [facility] [address] [place], [address] RBC (Bld) [#/Vol] 4.65 10*6/uL Normal 4.2-5.4 [facility] Comment on above: Performed By: #### L 506.0400, L506.1000, L509.1000, L801.1541, L501.9520, L3300.0960, L501.5101, L501.22064, L3300.6900, L3100.5450, L3300.7027 #### [facility] [address] [place], [address] RDW SD 47.7 fl High 35.1-43.9 [facility] Comment on above: Performed By: #### L 506.0400, L506.1000, L509.1000, L801.1541, L501.9520, L3300.0960, L501.5101, L501.12692, L3300.6900, L3100.5450, L3300.7027 #### [facility] [address] [place], [address] WBC (Bld) [#/Vol] 8.2 10*3/uL Normal 4.4-11.0 [facility] Comment on above: Performed By: #### L 506.0400, L506.1000, L509.1000, L801.1541, L501.9520, L3300.0960, L501.5101, L501.02917, L3300.6900, L3100.5450, L3300.7027 #### [facility] [address] [facility] [place], [place], [address] CRPon 12-15-2024 C-REACTIVE PROT < 3.00 Normal 0.0-3.0 [facility] Comment on above: Performed By: #### L 506.0400, L506.1000, L509.1000, L801.1541, L501.9520, L3300.0960, L501.5101, L501.40441, L3300.6900, L3100.5450, L3300.7027 #### [facility] [address] [place], [place], [phone] CRP [Mass/Vol]Ordered By: Jose E Lucero on 12-15-2024 C-Reactive Protein Extended Range < 3.00 mg/L 0.0-3.0 [facility] Carbon dioxide, total [Moles /volume] in Central venous bloodOrdered By: Krys Lucero on 12-15-2024 CO2 [Moles/Vol] 22.7 mmol/L 21.0-32.0 [facility] Chloride assayOrdered By: Jose E Lucero on 12-15-2024 Chloride [Moles/Vol] 108 mmol/L 98-108 [facility] Comprehensive Metabolic Prof ilon 12-15-2024 Albumin [Mass/Vol] 4.1 g/dL Normal 3.4-4.8 [facility] Comment on above: Performed By: #### L 506.0400, L506.1000, L509.1000, L801.1541, L501.9520, L3300.0960, L501.5101, L501.14487, L3300.6900, L3100.5450, L3300.7027 #### [facility] [address] [place], [address] Albumin/Globulin [Mass ratio] 1.5 {ratio} Normal 0.9-2.4 [facility] Comment on above: Performed By: #### L 506.0400, L506.1000, L509.1000, L801.1541, L501.9520, L3300.0960, L501.5101, L501.55759, L3300.6900, L3100.5450, L3300.7027 #### [facility] [address] [place], [address] ALK PHOS 226 U/L High 35-104 [facility] Comment on above: Performed By: #### L 506.0400, L506.1000, L509.1000, L801.1541, L501.9520, L3300.0960, L501.5101, L501.24818, L3300.6900, L3100.5450, L3300.7027 #### [facility] [address] [place], [place], [id number] ALT [Catalytic activity/Vol] 20 U/L Normal <=34 [facility] Comment on above: Performed By: #### L 506.0400, L506.1000, L509.1000, L801.1541, L501.9520, L3300.0960, L501.5101, L501.80050, L3300.6900, L3100.5450, L3300.7027 #### [facility] [address] [place], [address] AST [Catalytic activity/Vol] 21 U/L Normal <=31 [facility] Comment on above: Performed By: #### L 506.0400, L506.1000, L509.1000, L801.1541, L501.9520, L3300.0960, L501.5101, L501.03391, L3300.6900, L3100.5450, L3300.7027 #### [facility] [address] [place], [address] Bilirubin [Mass/Vol] 0.38 mg/dL Normal 0.00-1.30 [facility] Comment on above: Performed By: #### L 506.0400, L506.1000, L509.1000, L801.1541, L501.9520, L3300.0960, L501.5101, L501.71066, L3300.6900, L3100.5450, L3300.7027 #### [facility] [address] [place], [address] BUN/CRE 27.9 RATIO High 10-20 [facility] Comment on above: Performed By: #### L 506.0400, L506.1000, L509.1000, L801.1541, L501.9520, L3300.0960, L501.5101, L501.74439, L3300.6900, L3100.5450, L3300.7027 #### [facility] [address] [place], [place], [id number] Calcium [Mass/Vol] 9.8 mg/dL Normal 7.6-11.0 [facility] Comment on above: Performed By: #### L 506.0400, L506.1000, L509.1000, L801.1541, L501.9520, L3300.0960, L501.5101, L501.29887, L3300.6900, L3100.5450, L3300.7027 #### [facility] [address] [place], [place], [phone] Chloride [Moles/Vol] 108 mmol/L Normal 98-108 [facility] Comment on above: Performed By: #### L 506.0400, L506.1000, L509.1000, L801.1541, L501.9520, L3300.0960, L501.5101, L501.06282, L3300.6900, L3100.5450, L3300.7027 #### [facility] [address] [place], [address] CO2 [Moles/Vol] 22.7 mmol/L Normal 21.0-32.0 [facility] Comment on above: Performed By: #### L 506.0400, L506.1000, L509.1000, L801.1541, L501.9520, L3300.0960, L501.5101, L501.18511, L3300.6900, L3100.5450, L3300.7027 #### [facility] [address] [place], [address] Creatinine [Mass/Vol] 0.61 mg/dL Low 0.70-1.20 [facility] Comment on above: Performed By: #### L 506.0400, L506.1000, L509.1000, L801.1541, L501.9520, L3300.0960, L501.5101, L501.04780, L3300.6900, L3100.5450, L3300.7027 #### [facility] [address] [place], [address] (235) GAP 12 Normal 5-15 [facility] Comment on above: Performed By: #### L 506.0400, L506.1000, L509.1000, L801.1541, L501.9520, L3300.0960, L501.5101, L501.63778, L3300.6900, L3100.5450, L3300.7027 #### [facility] [address] [place], [address] GFR/1.73 sq M.predicted among non-blacks MDRD (S/P/Bld) [Vol rate/Area] 96 mL/min/{1.73_m2} Normal >60 [facility] Comment on above: Result Comment: mL/m in/1.73m2 CKD-EPI Creatinine Equation (2020) Performed By: #### L 506.0400, L506.1000, L509.1000, L801.1541, L501.9520, L3300.0960, L501.5101, L501.31813, L3300.6900, L3100.5450, L3300.7027 #### [facility] [address] [place], [place], [phone] (545) Globulin (S) [Mass/Vol] 2.8 g/dL Normal 2.2-4.[address] [facility] Comment on above: Performed By: #### L 506.0400, L506.1000, L509.1000, L801.1541, L501.9520, L3300.0960, L501.5101, L501.91080, L3300.6900, L3100.5450, L3300.7027 #### [facility] [address] [place], [place], [phone] (276) Glucose [Mass/Vol] 108 mg/dL High 70-99 [facility] Comment on above: Performed By: #### L 506.0400, L506.1000, L509.1000, L801.1541, L501.9520, L3300.0960, L501.5101, L501.67166, L3300.6900, L3100.5450, L3300.7027 #### [facility] [address] [place], [place], [phone] (270) Potassium [Moles/Vol] 4.4 mmol/L Normal 3.3-5.1 [facility] Comment on above: Performed By: #### L 506.0400, L506.1000, L509.1000, L801.1541, L501.9520, L3300.0960, L501.5101, L501.36665, L3300.6900, L3100.5450, L3300.7027 #### [facility] [address] [place], [place], [id number] (212) Sodium [Moles/Vol] 143 mmol/L Normal 133-145 [facility] Comment on above: Performed By: #### L 506.0400, L506.1000, L509.1000, L801.1541, L501.9520, L3300.0960, L501.5101, L501.44877, L3300.6900, L3100.5450, L3300.7027 #### [facility] [address] [place], [place], [phone] (310) T PROT 6.8 g/dL Normal 5.9-8.4 [facility] Comment on above: Performed By: #### L 506.0400, L506.1000, L509.1000, L801.1541, L501.9520, L3300.0960, L501.5101, L501.47833, L3300.6900, L3100.5450, L3300.7027 #### [facility] [address] [place], [place], [id number] Urea nitrogen [Mass/Vol] 17 mg/dL Normal 4-19 [facility] Comment on above: Performed By: #### L 506.0400, L506.1000, L509.1000, L801.1541, L501.9520, L3300.0960, L501.5101, L501.17621, L3300.6900, L3100.5450, L3300.7027 #### [facility] [address] [place], [place], [phone] Eosinophil percentageOrdered By: Krys Lucero on 12-15-2024 Eosinophils/100 WBC (Bld) 1.3 % 0-5 [facility] Erythrocyte distribution wid th (RBC) [Ratio]Ordered By: Krys Lucero on 12-15-2024 Erythrocyte distribution width (RBC) [Entitic vol] 47.7 fL High 35.1-43.9 [facility] Erythrocyte distribution wid th ratioOrdered By: Krys Lucero on 12-15-2024 Erythrocyte distribution width (RBC) [Ratio] 13.7 % 11.6-14.6 [facility] Fibrinogenon 12-15-2024 FIBRINOGEN 394 mg/dl Normal [facility] Comment on above: Performed By: #### L 506.0400, L506.1000, L509.1000, L801.1541, L501.9520, L3300.0960, L501.5101, L501.19825, L3300.6900, L3100.5450, L3300.7027 #### [facility] [address] [place], [place], [id number] Fibrinogen measurementOrdere d By: Krys Lucero on 12-15-2024 Fibrinogen 394 mg/dl [facility] Folate [Mass/Vol]Ordered By: Krys Lucero on 12-15-2024 Serum Folate > 40.00 ng/mL High 4.60-34.80 [facility] Comment on above: Hemolysis, Results w ill be affected, Requires Recollection. Folates,Serum (Folic Acid)on 12-15-2024 FOLATES,SERUM > 40.00 High 4.60-34.80 [facility] Comment on above: Order Comment: N Result Comment: Hemo lysis, Results will be affected, Requires Recollection. Performed By: #### L 506.0400, L506.1000, L509.1000, L801.1541, L501.9520, L3300.0960, L501.5101, L501.84946, L3300.6900, L3100.5450, L3300.7027 #### [facility] [address] [place], [place], [id number] GFR/1.73 sq M.predicted zack g non-blacks MDRD (S/P/Bld) [Vol rate/Area]Ordered By: Krys Lucero on 12-15-2024 Estimated GFR (MDRD) Non-Af Amer 96 >60 [facility] Comment on above: mL/min/1.73m2 CKD-EP I Creatinine Equation (2020) Hematocrit Auto (Bld) [Volum e fraction]Ordered By: Krys Lucero on 12-15-2024 Hematocrit (Bld) [Volume fraction] 44.0 % 37-47 [facility] Hemoglobin measurementOrdere d By: Krys Lucero on 12-15-2024 Hemoglobin (Bld) [Mass/Vol] 15.0 g/dL 12.0-15.0 [facility] Homocysteine measurement (ma ss/volume)Ordered By: Krys Lucero on 12-15-2024 Homocysteine 12.2 umol/L 0.0-17.2 [facility] Comment on above: Performed at: [address] [id number] Director: Jann Clancy PhD, Phone: [phone] Immature granulocytes/100 WB C Auto (Bld)Ordered By: Krys Lucero on 12-15-2024 Immature granulocytes/100 WBC (Bld) 0.200 % 0.0-0.9 [facility] Comment on above: IG% - Immature Granu locytes (promyelocytes, myelocytes and metamyelocytes) > 1% indicates that a LEFT SHIFT is Present. Laboratory - Chemistry and C hemistry - challengeOrdered By: Krys Lucero on 12-15-2024 AST [Catalytic activity/Vol] 21 U/L <32 [facility] Lymphocytes Auto (Unsp spec) [#/Vol]Ordered By: Krys Lucero on 12-15-2024 Lymphocytes (Bld) [#/Vol] 1.99 10*3/uL 0.83-4.51 [facility] Lymphocytes/100 WBC Auto (Un sp spec)Ordered By: Krys Lucero on 12-15-2024 Lymphocytes/100 WBC (Bld) 24.4 % 19-41 [facility] MCV (mean corpuscular volume ) determinationOrdered By: Krys Lucero on 12-15-2024 MCV (RBC) [Entitic vol] 94.6 fL 81-99 [facility] Mean corpuscular hemoglobin (MCH) determinationOrdered By: Krys Lucero on 12-15-2024 MCH (RBC) [Entitic mass] 32.3 pg High 27.0-32.0 [facility] Mean corpuscular hemoglobin concentration (MCHC) determinationOrdered By: Krys Lucero on 12-15-2024 MCHC (RBC) [Mass/Vol] 34.1 g/dL 32-36 [facility] Mean platelet volume determi nationOrdered By: Krys Lucero on 12-15-2024 Platelet mean volume (Bld) [Entitic vol] 10.3 fL 6.2-12.0 [facility] Monocyte percentageOrdered B y: Krys Lucero on 12-15-2024 Monocytes/100 WBC (Bld) 11.4 % High 0-10 [facility] Neutrophil percentageOrdered By: Krys Lucero on 12-15-2024 Neutrophils/100 WBC (Bld) 62.2 % 47-70 [facility] Nucleated red blood cell per centageOrdered By: Krys Lucero on 12-15-2024 Nucleated RBC/100 WBC (Bld) [Ratio] 0 % 0-5 [facility] Platelet countOrdered By: Jose E Lucero on 12-15-2024 Platelets (Bld) [#/Vol] 316 10*3/uL 150-450 [facility] Potassium (Unsp spec) [Mass/ Vol]Ordered By: Krys Lucero on 12-15-2024 Potassium [Moles/Vol] 4.4 mmol/L 3.3-5.1 [facility] RBC Auto (Bld) [#/Vol]Ordere d By: Krys Lucero on 12-15-2024 RBC (Bld) [#/Vol] 4.65 10*6/uL 4.2-5.4 [facility] Serum creatinine measurement (mass/volume)Ordered By: Krys Lucero on 12-15-2024 Creatinine [Mass/Vol] 0.61 mg/dL Low 0.70-1.20 [facility] Serum globulin measurementOr dered By: Krys Lucero on 12-15-2024 Globulin (S) [Mass/Vol] 2.8 g/dL 2.2-4.[address] [facility] Serum glucose measurement (m ass/volume)Ordered By: Krys Lucero on 12-15-2024 Glucose [Mass/Vol] 108 mg/dL High 70-99 [facility] Serum or plasma alanine quintana otransferase (ALT) measurementOrdered By: Krys Lucero on 12-15-2024 ALT [Catalytic activity/Vol] 20 U/L <35 [facility] Serum or plasma albumin serina urement (mass/volume)Ordered By: Krys Lucero on 12-15-2024 Albumin [Mass/Vol] 4.1 g/dL 3.4-4.8 [facility] Serum or plasma albumin/glob ulin mass ratioOrdered By: Krys Lucero on 12-15-2024 Albumin/Globulin [Mass ratio] 1.5 {ratio} 0.9-2.4 [facility] Serum or plasma alkaline anh sphatase measurementOrdered By: Krys Lucero on 12-15-2024 ALP [Catalytic activity/Vol] 226 U/L High 35-104 [facility] Serum or plasma calcium serina urement (mass/volume)Ordered By: Krys Lucero on 12-15-2024 Calcium [Mass/Vol] 9.8 mg/dL 7.6-11.0 [facility] Serum or plasma urea nitroge n measurement (mass/volume)Ordered By: Krys Lucero on 12-15-2024 Urea nitrogen [Mass/Vol] 17 mg/dL 4-19 [facility] Sodium levelOrdered By: Tito Lucero on 12-15-2024 Sodium [Moles/Vol] 143 mmol/L 133-145 [facility] Total proteinOrdered By: Osmar Lucero on 12-15-2024 Protein [Mass/Vol] 6.8 g/dL 5.9-8.4 [facility] Vitamin B12on 12-15-2024 Cobalamin (Vitamin B12) [Mass/Vol] 456 pg/mL Normal 180-914 [facility] Comment on above: Performed By: #### L 506.0400, L506.1000, L509.1000, L801.1541, L501.9520, L3300.0960, L501.5101, L501.03341, L3300.6900, L3100.5450, L3300.7027 #### [facility] [place], [address] Vitamin B12 ser/plasOrdered By: Krys Lucero on 12-15-2024 Cobalamin (Vitamin B12) [Mass/Vol] 456 pg/mL 180-914 [facility] Vitamin D, 25-hydroxyOrdered By: Krys Lucero on 12-15-2024 Vitamin D 25-Hydroxy 12.8 ng/mL Low 30-100 [facility] Comment on above: Vitamin D StatusDefi ciency: <20 ng/mL (50nmol/L)Insufficiency: 20-30 ng/mL (50-75 nmol/L)Sufficiency: 30-100 ng/mL (75-250 nmol/L)Toxicity: >100 ng/mL (>250 nmol/L) Vitamin D,25 Hydroxyon 12-15 Vitamin D 25-OH 12.8 ng/mL Low 30-100 [facility] Comment on above: Result Comment: Angy min D Status Deficiency: <20 ng/mL (50nmol/L) Insufficiency: 20-30 ng/mL (50-75 nmol/L) Sufficiency: 30-100 ng/mL (75-250 nmol/L) Toxicity: >100 ng/mL (>250 nmol/L) Performed By: #### L 506.0400, L506.1000, L509.1000, L801.1541, L501.9520, L3300.0960, L501.5101, L501.51114, L3300.6900, L3100.5450, L3300.7027 #### [facility] [address] [place], [address] White blood cell (WBC) count Ordered By: Krys Lucero on 12-15-2024 WBC (Bld) [#/Vol] 8.2 10*3/uL 4.4-11.0 [facility] C REACTIVE PROTEINon 025 CRP [Mass/Vol] 1.40 mg/L Normal <10.00 [facility] Comment on above: Performed By: #### C 7ED #### [facility] (DEFAULT) [address] [place] [address] CBC AND ELECTRONIC DIFFon Basophils (Bld) [#/Vol] 0.05 10*3/uL Normal 0.00-0.15 [facility] Comment on above: Performed By: #### L AB980, ESR #### [facility] (DEFAULT) [address] [place] [address] 24073 Basophils/100 WBC (Bld) 0.8 % Normal [facility] Comment on above: Performed By: #### L AB980, ESR #### [facility] (DEFAULT) [address] [place] [address]443 DIFF STATUS Electronic Differential Normal [facility] Comment on above: Performed By: #### L AB980, ESR #### [facility] (DEFAULT) [address] [place] [address]111 Eosinophils (Bld) [#/Vol] 0.17 10*3/uL Normal 0.00-0.42 [facility] Comment on above: Performed By: #### L AB980, ESR #### [facility] (DEFAULT) [address] [place] [address] 41289 Eosinophils/100 WBC (Bld) 2.6 % Normal [facility] Comment on above: Performed By: #### L AB980, ESR #### [facility] (DEFAULT) [address] [place] [address] 24664 Hematocrit (Bld) [Volume fraction] 45.4 % High 34.9-44.3 [facility] Comment on above: Performed By: #### L AB980, ESR #### [facility] (DEFAULT) [address] [place] [address] 55764 Hemoglobin (Bld) [Mass/Vol] 14.9 g/dL Normal 11.4-15.2 [facility] Comment on above: Performed By: #### L AB980, ESR #### [facility] (DEFAULT) [address] [place] [address] 76847 Immature Grans % 0.2 % Normal [facility] Comment on above: Performed By: #### L AB980, ESR #### [facility] (DEFAULT) [address] [place] [address] 30394 Immature Grans Absolute < Normal <=0.08 [facility] Comment on above: Performed By: #### L AB980, ESR #### [facility] (DEFAULT) [address] [place] [address]1963 Lymphocytes (Bld) [#/Vol] 2.09 10*3/uL Normal 1.16-3.51 [facility] Comment on above: Performed By: #### L AB980, ESR #### [facility] (DEFAULT) [address] [place] [address] 79238 Lymphocytes/100 WBC (Bld) 31.9 % Normal [facility] Comment on above: Performed By: #### L AB980, ESR #### [facility] (DEFAULT) [address] [place] [address] 06944 MCV (RBC) [Entitic vol] 96.6 fL Normal 79.6-97.7 [facility] Comment on above: Performed By: #### L AB980, ESR #### [facility] (DEFAULT) [address] [place] [address] 51576 Mean Cell Hgb 31.7 pg Normal 25.9-33.9 [facility] Comment on above: Performed By: #### L AB980, ESR #### [facility] (DEFAULT) [address] [address] Mean Cell Hgb Conc 32.8 g/dL Normal 31.4-35.9 [facility] Comment on above: Performed By: #### L AB980, ESR #### [facility] (DEFAULT) [address] [place] [address] 60009 Monocytes (Bld) [#/Vol] 0.64 10*3/uL Normal 0.22-0.87 [facility] Comment on above: Performed By: #### L AB980, ESR #### [facility] (DEFAULT) [address] [place] [address] 28406 Monocytes/100 WBC (Bld) 9.8 % Normal [facility] Comment on above: Performed By: #### L AB980, ESR #### [facility] (DEFAULT) [address] [place] [address] 17569 Nucleated RBC 0.0 /100 WBC Normal <=0.2 [facility] Comment on above: Performed By: #### L AB980, ESR #### [facility] (DEFAULT) [address] [place] [address] 91849 Platelet mean volume (Bld) [Entitic vol] 10.4 fL Normal 8.5-12.2 [facility] Comment on above: Performed By: #### L AB980, ESR #### [facility] (DEFAULT) [address] [address] Platelets (Bld) [#/Vol] 311 10*3/uL Normal 150-393 [facility] Comment on above: Performed By: #### L AB980, ESR #### [facility] (DEFAULT) [address] [place] [address] 38323 RBC (Bld) [#/Vol] 4.70 10*6/uL Normal 3.91-5.04 [facility] Comment on above: Performed By: #### L AB980, ESR #### [facility] (DEFAULT) [address] [place] [address] 97584 RBC Distribution 13.7 % Normal 10.8-14.9 [facility] Comment on above: Performed By: #### L AB980, ESR #### [facility] (DEFAULT) [address] [place] [address] 47482 Segs + Bands Auto 54.7 % Normal [facility] Comment on above: Performed By: #### L AB980, ESR #### [facility] (DEFAULT) [address] [place] [address] 13533 Segs + Bands,Absolute Auto 3.60 K/uL Normal 1.64-7.28 [facility] Comment on above: Performed By: #### L AB980, ESR #### [facility] (DEFAULT) [address] [place] [address] 43977 WBC (Bld) [#/Vol] 6.56 10*3/uL Normal 3.99-11.19 [facility] Comment on above: Performed By: #### L AB980, ESR #### [facility] (DEFAULT) [address] [place] [address] 50078 CKon 10-13-2024 CK [Catalytic activity/Vol] 28 U/L Low 30-184 [facility] Comment on above: Performed By: #### C 7ED #### [facility] (DEFAULT) [address] [place] [address] 49013 COMPREHENSIVE METABOLIC PANE Rehan 10-13-2024 Albumin [Mass/Vol] 3.9 g/dL Normal 3.5-5.0 [facility] Comment on above: Performed By: #### Boogie 7ED #### [facility] (DEFAULT) [address] [place] [address] 97452 ALP [Catalytic activity/Vol] 168 U/L High 32-126 [facility] Comment on above: Performed By: #### Boogie 7ED #### [facility] (DEFAULT) [address] [place] [address] 74990 ALT [Catalytic activity/Vol] 19 U/L Normal 9-48 [facility] Comment on above: Performed By: #### C 7ED #### [facility] (DEFAULT) [address] [place] [address] 84547 Anion gap [Moles/Vol] 15 mmol/L Normal 7-17 [facility] Comment on above: Performed By: #### C 7ED #### [facility] (DEFAULT) [address] [place] [address] 19148 AST [Catalytic activity/Vol] 18 U/L Normal 10-39 [facility] Comment on above: Performed By: #### C 7ED #### [facility] (DEFAULT) [address] [place] [address] 34104 Bilirubin [Mass/Vol] 0.5 mg/dL Normal <1.5 [facility] Comment on above: Performed By: #### C 7ED #### [facility] (DEFAULT) [address] [place] [address] 44235 Calcium [Mass/Vol] 9.5 mg/dL Normal 8.6-10.5 [facility] Comment on above: Performed By: #### C 7ED #### [facility] (DEFAULT) [address] [place] [address] 60061 Chloride [Moles/Vol] 105 mmol/L Normal 98-108 [facility] Comment on above: Performed By: #### C 7ED #### [facility] (DEFAULT) [address] [place] [address] 04955 CO2 [Moles/Vol] 25 mmol/L Normal 21-31 [facility] Comment on above: Performed By: #### C 7ED #### [facility] (DEFAULT) [address] [place] [address] 06187 Creatinine [Mass/Vol] 0.53 mg/dL Normal 0.50-1.20 [facility] Comment on above: Performed By: #### C 7ED #### [facility] (DEFAULT) [address] [place] [address] 07653 eGFR, CKD-EPI, Female > Normal >=60 [facility] Comment on above: Result Comment: Repo rted eGFR is based on the CKD-EPI 1 equation using creatinine, age, and sex. Performed By: #### C 7ED #### [facility] (DEFAULT) [address] [place] [address] 46168 Glucose [Mass/Vol] 141 mg/dL High 70-99 [facility] Comment on above: Performed By: #### C 7ED #### [facility] (DEFAULT) [address] [place] [address] 42956 Osmolality [Osmolality] 296 mosm/kg Normal 278-305 [facility] Comment on above: Performed By: #### C 7ED #### [facility] (DEFAULT) [address] [place] [address] 20855 Potassium [Moles/Vol] 3.7 mmol/L Normal 3.5-5.0 [facility] Comment on above: Performed By: #### C 7ED #### [facility] (DEFAULT) [address] [place] [address] 54784 Protein [Mass/Vol] 6.8 g/dL Normal 6.4-8.3 [facility] Comment on above: Performed By: #### C 7ED #### [facility] (DEFAULT) [address] [place] [address] 53829 Sodium [Moles/Vol] 141 mmol/L Normal 135-145 [facility] Comment on above: Performed By: #### C 7ED #### [facility] (DEFAULT) [address] [place] [address] 46766 Urea nitrogen [Mass/Vol] 11 mg/dL Normal 7-25 [facility] Comment on above: Performed By: #### C 7ED #### [facility] (DEFAULT) [address] [place] [address] 80985 Urea nitrogen/Creatinine [Mass ratio] 21 mg/mg Normal [facility] Comment on above: Performed By: #### C 7ED #### [facility] [facility] ([facility] [address] [place] [address] 35165 C REACTIVE PROTEINon 025 CRP [Mass/Vol] 2.94 mg/L Normal <10.00 [facility] Comment on above: Performed By: #### C KB, CRP, CMPN #### [facility] (DEFAULT) [address] [place] [address] 42443 CBC AND ELECTRONIC DIFFon Basophils (Bld) [#/Vol] 0.07 10*3/uL Normal 0.00-0.15 [facility] Comment on above: Performed By: #### L AB980, ESR #### [facility] (DEFAULT) [address] [place] [address] 58419 Basophils/100 WBC (Bld) 0.7 % Normal [facility] Comment on above: Performed By: #### L AB980, ESR #### [facility] (DEFAULT) [address] [place] [address] 20970 DIFF STATUS Electronic Differential Normal [facility] Comment on above: Performed By: #### L AB980, ESR #### [facility] (DEFAULT) [address] [place] [address] 34322 Eosinophils (Bld) [#/Vol] 0.20 10*3/uL Normal 0.00-0.42 [facility] Comment on above: Performed By: #### L AB980, ESR #### [facility] (DEFAULT) [address] [place] [address] 13901 Eosinophils/100 WBC (Bld) 2.1 % Normal [facility] Comment on above: Performed By: #### L AB980, ESR #### [facility] (DEFAULT) [address] [place] [address] 95439 Hematocrit (Bld) [Volume fraction] 44.2 % Normal 34.9-44.3 [facility] Comment on above: Performed By: #### L AB980, ESR #### [facility] (DEFAULT) [address] [place] [address] 32542 Hemoglobin (Bld) [Mass/Vol] 14.8 g/dL Normal 11.4-15.2 [facility] Comment on above: Performed By: #### L AB980, ESR #### [facility] (DEFAULT) [address] [place] [address] 50117 Immature Grans % 0.3 % Normal [facility] Comment on above: Performed By: #### L AB980, ESR #### [facility] (DEFAULT) [address] [place] [address] 76538 Immature Grans Absolute < Normal <=0.08 [facility] Comment on above: Performed By: #### L AB980, ESR #### [facility] (DEFAULT) [address] [place] [address] 72203 Lymphocytes (Bld) [#/Vol] 1.80 10*3/uL Normal 1.16-3.51 [facility] Comment on above: Performed By: #### L AB980, ESR #### [facility] (DEFAULT) [address] [place] [address] 44126 Lymphocytes/100 WBC (Bld) 18.5 % Normal [facility] Comment on above: Performed By: #### L AB980, ESR #### [facility] (DEFAULT) [address] [place] [address] 05681 MCV (RBC) [Entitic vol] 95.1 fL Normal 79.6-97.7 [facility] Comment on above: Performed By: #### L AB980, ESR #### [facility] (DEFAULT) [address] [place] [address] 75215 Mean Cell Hgb 31.8 pg Normal 25.9-33.9 [facility] Comment on above: Performed By: #### L AB980, ESR #### [facility] (DEFAULT) [address] [place] [address] 53642 Mean Cell Hgb Conc 33.5 g/dL Normal 31.4-35.9 [facility] Comment on above: Performed By: #### L AB980, ESR #### [facility] (DEFAULT) [address] [place] [address] 22477 Monocytes (Bld) [#/Vol] 0.88 10*3/uL High 0.22-0.87 [facility] Comment on above: Performed By: #### L AB980, ESR #### [facility] (DEFAULT) [address] [place] [address] 70554 Monocytes/100 WBC (Bld) 9.0 % Normal [facility] Comment on above: Performed By: #### L AB980, ESR #### [facility] (DEFAULT) [address] [place] [address] 58382 Nucleated RBC 0.0 /100 WBC Normal <=0.2 [facility] Comment on above: Performed By: #### L AB980, ESR #### [facility] (DEFAULT) [address] [place] [address] 82289 Platelet mean volume (Bld) [Entitic vol] 10.4 fL Normal 8.5-12.2 [facility] Comment on above: Performed By: #### L AB980, ESR #### [facility] (DEFAULT) [address] [place] [address] 24968 Platelets (Bld) [#/Vol] 316 10*3/uL Normal 150-393 [facility] Comment on above: Performed By: #### L AB980, ESR #### [facility] (DEFAULT) [address] [place] [address] 56062 RBC (Bld) [#/Vol] 4.65 10*6/uL Normal 3.91-5.04 [facility] Comment on above: Performed By: #### L AB980, ESR #### [facility] (DEFAULT) [address] [place] [address] 39109 RBC Distribution 13.6 % Normal 10.8-14.9 [facility] Comment on above: Performed By: #### L AB980, ESR #### [facility] (DEFAULT) [address] [place] [address] 88101 Segs + Bands Auto 69.4 % Normal [facility] Comment on above: Performed By: #### L AB980, ESR #### [facility] (DEFAULT) [address] 28151 Segs + Bands,Absolute Auto 6.75 K/uL Normal 1.64-7.28 [facility] Comment on above: Performed By: #### L AB980, ESR #### [facility] (DEFAULT) [address] [place] [address] 18307 WBC (Bld) [#/Vol] 9.73 10*3/uL Normal 3.99-11.19 [facility] Comment on above: Performed By: #### L AB980, ESR #### [facility] (DEFAULT) [address] [place] [address] 86533 CKon 10-06-2024 CK [Catalytic activity/Vol] 18 U/L Low 30-184 [facility] Comment on above: Performed By: #### C KB, CRP, CMPN #### [facility] (DEFAULT) [address] [place] [address] 50678 COMPREHENSIVE METABOLIC PANE Rehan 10-06-2024 Albumin [Mass/Vol] 4.0 g/dL Normal 3.5-5.0 [facility] Comment on above: Performed By: #### C KB, CRP, CMPN #### [facility] (DEFAULT) [address] [place] [address] 32712 ALP [Catalytic activity/Vol] 169 U/L High 32-126 [facility] Comment on above: Performed By: #### C KB, CRP, CMPN #### [facility] (DEFAULT) [address] [place] [address] 88522 ALT [Catalytic activity/Vol] 19 U/L Normal 9-48 [facility] Comment on above: Performed By: #### C KB, CRP, CMPN #### [facility] (DEFAULT) [address] [place] [address] 04885 Anion gap [Moles/Vol] 15 mmol/L Normal 7-17 [facility] Comment on above: Performed By: #### C KB, CRP, CMPN #### [facility] (DEFAULT) [address] [place] [address] 11095 AST [Catalytic activity/Vol] 16 U/L Normal 10-39 [facility] Comment on above: Performed By: #### C KB, CRP, CMPN #### [facility] (DEFAULT) [address] [place] [address] 84568 Bilirubin [Mass/Vol] 0.5 mg/dL Normal <1.5 [facility] Comment on above: Performed By: #### Boogie MILLER, CRP, CMPN #### [facility] (DEFAULT) [address] [place] [address] 74833 Calcium [Mass/Vol] 9.9 mg/dL Normal 8.6-10.5 [facility] Comment on above: Performed By: #### Boogie MILLER, CRP, CMPN #### [facility] (DEFAULT) [address] [place] [address] 97435 Chloride [Moles/Vol] 106 mmol/L Normal 98-108 [facility] Comment on above: Performed By: #### Boogie MILLER, CRP, CMPN #### [facility] (DEFAULT) [address] [place] [address] 87576 CO2 [Moles/Vol] 29 mmol/L Normal 21-31 [facility] Comment on above: Performed By: #### Boogie MILLER, CRP, CMPN #### [facility] (DEFAULT) [address] [place] [address] 00078 Creatinine [Mass/Vol] 0.96 mg/dL Normal 0.50-1.20 [facility] Comment on above: Performed By: #### Boogie MILLER, CRP, CMPN #### [facility] (DEFAULT) [address] [place] [address] 57103 GFR/1.73 sq M.predicted among non-blacks MDRD (S/P/Bld) [Vol rate/Area] 64 mL/min/{1.73_m2} Normal >=60 [facility] Comment on above: Result Comment: Repo rted eGFR is based on the CKD-EPI 2020 equation using creatinine, age, and sex. Performed By: #### Boogie MILLER, CRP, CMPN #### [facility] (DEFAULT) [address] [place] [address] 03156 Glucose [Mass/Vol] 97 mg/dL Normal 70-99 [facility] Comment on above: Performed By: #### C PAUL, CRP, CMPN #### [facility] (DEFAULT) [address] [place] [address] 28754 Osmolality [Osmolality] 305 mosm/kg Normal 278-305 [facility] Comment on above: Performed By: #### C KB, CRP, CMPN #### [facility] (DEFAULT) [address] [place] [address] 00646 Potassium [Moles/Vol] 4.3 mmol/L Normal 3.5-5.0 [facility] Comment on above: Performed By: #### C PAUL, CRP, CMPN #### [facility] (DEFAULT) [address] [place] [address] 54598 Protein [Mass/Vol] 6.9 g/dL Normal 6.4-8.3 [facility] Comment on above: Performed By: #### Boogie MILLER, CRP, CMPN #### [facility] (DEFAULT) [address] [place] [address] 35316 Sodium [Moles/Vol] 146 mmol/L High 135-145 [facility] Comment on above: Performed By: #### Boogie MILLER, CRP, CMPN #### [facility] (DEFAULT) [address] [place] [address] 85251 Urea nitrogen [Mass/Vol] 16 mg/dL Normal 7-25 [facility] Comment on above: Performed By: #### C PAUL, CRP, CMPN #### [facility] (DEFAULT) [address] [place] [address] 03732 Urea nitrogen/Creatinine [Mass ratio] 17 mg/mg Normal [facility] Comment on above: Performed By: #### Boogie MILLER, CRP, CMPN #### [facility] (DEFAULT) [address] [place] [address] 81032 No Panel Informationon 09-28 Radiology Study observation (narrative) [employer] XR ANKLE 3+ VIEWS LEFTon XR ANKLE 3+ VIEWS LEFT EXAMINATION TYPE: XR ANKLE 3+ VIEWS LEFT DATE OF EXAM : 09/28/2024 6:09 PM HISTORY: accidental injury, COMPARISON: NONE FINDINGS: Osteopenia. Small ossified densities adjacent to the cuboid on the lateral radiograph. No cortical erosive change or periosteal reaction. Ankle clear space is unremarkable. IMPRESSION: Age indeterminant avulsion fracture of the cuboid. Clinical correlation is recommended. -------- FINAL REPORT -------- Dictated By: Emory Coburn Dictated Date: 09/28/2024 18:12 Assigned Physician: Emory Coburn Reviewed and Electronically Signed By: Emory Coburn Signed Date: 09/28/2024 18:13 Workstation ID: [id number] Transcribed By: Self Edit Transcribed Date: 09/28/2024 18:12 Normal [facility] XR Ankle - left 3 Viewson Age indeterminant avulsion fracture of the cuboid. Clinical correlation is recommended. -------- FINAL REPORT -------- Dictated By: Emory Coburn Dictated Date: 09/28/2024 18:12 Assigned Physician: Emory Coburn Reviewed and Electronically Signed By: Emory Coburn Signed Date: 09/28/2024 18:13 Workstation ID: [id number] Transcribed By: Self Edit Transcribed Date: 09/28/2024 18:12 POWERSCRIBE EXAMINATION TYPE: XR ANKLE 3+ VIEWS LEFT DATE OF EXAM : 09/28/2024 6:09 PM HISTORY: accidental injury, COMPARISON: NONE FINDINGS: Osteopenia. Small ossified densities adjacent to the cuboid on the lateral radiograph. No cortical erosive change or periosteal reaction. Ankle clear space is unremarkable. POWERSCRIBE Emory Coburn MD - 09/28/2024 EXAMINATION TYPE: XR ANKLE 3+ VIEWS LEFT DATE OF EXAM : 09/28/2024 6:09 PM HISTORY: accidental injury, COMPARISON: NONE FINDINGS: Osteopenia. Small ossified densities adjacent to the cuboid on the lateral radiograph. No cortical erosive change or periosteal reaction. Ankle clear space is unremarkable. IMPRESSION: Age indeterminant avulsion fracture of the cuboid. Clinical correlation is recommended. -------- FINAL REPORT -------- Dictated By: Emory Coburn Dictated Date: 09/28/2024 18:12 Assigned Physician: Emory Coburn Reviewed and Electronically Signed By: Emory Coburn Signed Date: 09/28/2024 18:13 Workstation ID: [id number] Transcribed By: Self Edit Transcribed Date: 09/28/2024 18:12 [employer] [place] XR Ankle - left 3 ViewsOrder ed By: Emory Coburn on 09-28-2024 [employer] [place] Work Phone: XR FOOT 3+ VIEWS LEFTon 09-14 XR FOOT 3+ VIEWS LEFT EXAMINATION TYPE: XR FOOT 3+ VIEWS LEFT DATE OF EXAM : 09/28/2024 6:09 PM HISTORY: accidental fall, COMPARISON: NONE FINDINGS: Osteopenia. No acute fracture or subluxation. No cortical erosive change or periosteal reaction. Calcaneal enthesophyte. 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 IMPRESSION: No acute osseous abnormality. No acute fracture. -------- FINAL REPORT -------- Dictated By: Emory Coburn Dictated Date: 09/28/2024 18:33 Assigned Physician: Emory Coburn Reviewed and Electronically Signed By: Emory Coburn Signed Date: 09/28/2024 18:35 Workstation ID: [id number] Transcribed By: Self Edit Transcribed Date: 09/28/2024 18:33 Normal [facility] XR Foot - left 3 Viewson No acute osseous abnormality. No acute fracture. -------- FINAL REPORT -------- Dictated By: Emory Coburn Dictated Date: 09/28/2024 18:33 Assigned Physician: Emory Coburn Reviewed and Electronically Signed By: Emory Coburn Signed Date: 09/28/2024 18:35 Workstation ID: [id number] Transcribed By: Self Edit Transcribed Date: 09/28/2024 18:33 POWERSCRIBE EXAMINATION TYPE: XR FOOT 3+ VIEWS LEFT DATE OF EXAM : 09/28/2024 6:09 PM HISTORY: accidental fall, COMPARISON: NONE FINDINGS: Osteopenia. No acute fracture or subluxation. No cortical erosive change or periosteal reaction. Calcaneal enthesophyte. 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 Emory Wolfe MD - 09/28/2024 EXAMINATION TYPE: XR FOOT 3+ VIEWS LEFT DATE OF EXAM : 09/28/2024 6:09 PM HISTORY: accidental fall, COMPARISON: NONE FINDINGS: Osteopenia. No acute fracture or subluxation. No cortical erosive change or periosteal reaction. Calcaneal enthesophyte. 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 IMPRESSION: No acute osseous abnormality. No acute fracture. -------- FINAL REPORT -------- Dictated By: Emory Coburn Dictated Date: 09/28/2024 18:33 Assigned Physician: Emory Coburn Reviewed and Electronically Signed By: Emory Coburn Signed Date: 09/28/2024 18:35 Workstation ID: [id number] Transcribed By: Self Edit Transcribed Date: 09/28/2024 18:33 [facility] C REACTIVE PROTEINon 025 CRP [Mass/Vol] 0.88 mg/L Normal <10.00 [facility] Comment on above: Performed By: #### C 7ED #### [facility] (DEFAULT) [address] [address] CBC AND ELECTRONIC DIFFon Basophils (Bld) [#/Vol] 0.06 10*3/uL Normal 0.00-0.15 [facility] Comment on above: Performed By: #### L AB980, ESR #### [facility] (DEFAULT) [address] [address]80 Basophils/100 WBC (Bld) 0.7 % Normal [facility] Comment on above: Performed By: #### L AB980, ESR #### [facility] (DEFAULT) [address] [address] DIFF STATUS Electronic Differential Normal [facility] Comment on above: Performed By: #### L AB980, ESR #### [facility] (DEFAULT) [address] 94026 Eosinophils (Bld) [#/Vol] 0.22 10*3/uL Normal 0.00-0.42 [facility] Comment on above: Performed By: #### L AB980, ESR #### [facility] (DEFAULT) [address] 19287 Eosinophils/100 WBC (Bld) 2.7 % Normal [facility] Comment on above: Performed By: #### L AB980, ESR #### [facility] (DEFAULT) [address] 16410 Hematocrit (Bld) [Volume fraction] 42.9 % Normal 34.9-44.3 [facility] Comment on above: Performed By: #### L AB980, ESR #### [facility] (DEFAULT) [address] 87625 Hemoglobin (Bld) [Mass/Vol] 14.0 g/dL Normal 11.4-15.2 [facility] Comment on above: Performed By: #### L AB980, ESR #### [facility] (DEFAULT) [address] 40829 Immature Grans % 0.2 % Normal [facility] Comment on above: Performed By: #### L AB980, ESR #### [facility] (DEFAULT) [address] 34842 Immature Grans Absolute < Normal <=0.08 [facility] Comment on above: Performed By: #### L AB980, ESR #### [facility] (DEFAULT) [address] 99298 Lymphocytes (Bld) [#/Vol] 2.39 10*3/uL Normal 1.16-3.51 [facility] Comment on above: Performed By: #### L AB980, ESR #### [facility] (DEFAULT) [address] 62819 Lymphocytes/100 WBC (Bld) 29.5 % Normal [facility] Comment on above: Performed By: #### L AB980, ESR #### [facility] (DEFAULT) [address] [address]63 MCV (RBC) [Entitic vol] 95.1 fL Normal 79.6-97.7 [facility] Comment on above: Performed By: #### L AB980, ESR #### [facility] (DEFAULT) [address] 71755 Mean Cell Hgb 31.0 pg Normal 25.9-33.9 [facility] Comment on above: Performed By: #### L AB980, ESR #### [facility] (DEFAULT) [address] 05103 Mean Cell Hgb Conc 32.6 g/dL Normal 31.4-35.9 [facility] Comment on above: Performed By: #### L AB980, ESR #### [facility] (DEFAULT) [address] [address]21 Monocytes (Bld) [#/Vol] 0.89 10*3/uL High 0.22-0.87 [facility] Comment on above: Performed By: #### L AB980, ESR #### [facility] (DEFAULT) [address] [place] [address] 63806 Monocytes/100 WBC (Bld) 11.0 % Normal [facility] Comment on above: Performed By: #### L AB980, ESR #### [facility] (DEFAULT) [address] [address]92 Nucleated RBC 0.0 /100 WBC Normal <=0.2 [facility] Comment on above: Performed By: #### L AB980, ESR #### [facility] (DEFAULT) [address] [place] [address] 52771 Platelet mean volume (Bld) [Entitic vol] 10.6 fL Normal 8.5-12.2 [facility] Comment on above: Performed By: #### L AB980, ESR #### [facility] (DEFAULT) [address] [place] [address] 03357 Platelets (Bld) [#/Vol] 329 10*3/uL Normal 150-393 [facility] Comment on above: Performed By: #### L AB980, ESR #### [facility] (DEFAULT) [address] [place] [address] 25711 RBC (Bld) [#/Vol] 4.51 10*6/uL Normal 3.91-5.04 [facility] Comment on above: Performed By: #### L AB980, ESR #### [facility] (DEFAULT) [address] [place] [address] 62945 RBC Distribution 13.8 % Normal 10.8-14.9 [facility] Comment on above: Performed By: #### L AB980, ESR #### [facility] (DEFAULT) [address] [place] [address] 32381 Segs + Bands Auto 55.9 % Normal [facility] Comment on above: Performed By: #### L AB980, ESR #### [facility] (DEFAULT) [address] [place] [address] 92669 Segs + Bands,Absolute Auto 4.52 K/uL Normal 1.64-7.28 [facility] Comment on above: Performed By: #### L AB980, ESR #### [facility] (DEFAULT) [address] [place] [address] 47148 WBC (Bld) [#/Vol] 8.10 10*3/uL Normal 3.99-11.19 [facility] Comment on above: Performed By: #### L AB980, ESR #### [facility] (DEFAULT) [address] [place] [address] 34349 CKon 09-22-2024 CK [Catalytic activity/Vol] 18 U/L Low 30-184 [facility] Comment on above: Performed By: #### Boogie BROCK #### [facility] (DEFAULT) [address] [place] [address] 87890 COMPREHENSIVE METABOLIC PANE Rehan 09-22-2024 Albumin [Mass/Vol] 3.9 g/dL Normal 3.5-5.0 [facility] Comment on above: Performed By: #### Boogie BROCK #### [facility] (DEFAULT) [address] [place] [address] ALP [Catalytic activity/Vol] 174 U/L High 32-126 [facility] Comment on above: Performed By: #### Boogie BROCK #### [facility] (DEFAULT) [address] [place] [address] 89297 ALT [Catalytic activity/Vol] 23 U/L Normal 9-48 [facility] Comment on above: Performed By: #### Boogie BROCK #### [facility] (DEFAULT) [address] [place] [address] 97726 Anion gap [Moles/Vol] 11 mmol/L Normal 7-17 [facility] Comment on above: Performed By: #### Boogie BROCK #### [facility] (DEFAULT) [address] [place] [address] 81284 AST [Catalytic activity/Vol] 20 U/L Normal 10-39 [facility] Comment on above: Performed By: #### Boogie BROCK #### [facility] (DEFAULT) [address] [place] [address] 76327 Bilirubin [Mass/Vol] 0.5 mg/dL Normal <1.5 [facility] Comment on above: Performed By: #### Boogie MccrackenD #### [facility] (DEFAULT) [address] [place] [address] 77474 Calcium [Mass/Vol] 9.9 mg/dL Normal 8.6-10.5 [facility] Comment on above: Performed By: #### Boogie BROCK #### [facility] (DEFAULT) [address] [place] [address] 31350 Chloride [Moles/Vol] 107 mmol/L Normal 98-108 [facility] Comment on above: Performed By: #### C 7ED #### [facility] (DEFAULT) [address] [place] [address] 46303 CO2 [Moles/Vol] 28 mmol/L Normal 21-31 [facility] Comment on above: Performed By: #### C 7ED #### [facility] (DEFAULT) [address] [place] [address] 59953 Creatinine [Mass/Vol] 0.55 mg/dL Normal 0.50-1.20 [facility] Comment on above: Performed By: #### Boogie 7ED #### [facility] (DEFAULT) [address] [place] [address] 92063 eGFR, CKD-EPI, Female > Normal >=60 [facility] Comment on above: Result Comment: Repo rted eGFR is based on the CKD-EPI 2020 equation using creatinine, age, and sex. Performed By: #### Boogie 7ED #### [facility] (DEFAULT) [address] [place] [address] 38652 Glucose [Mass/Vol] 100 mg/dL High 70-99 [facility] Comment on above: Performed By: #### C 7ED #### [facility] (DEFAULT) [address] [place] [address] 63027 Osmolality [Osmolality] 299 mosm/kg Normal 278-305 [facility] Comment on above: Performed By: #### C 7ED #### [facility] (DEFAULT) [address] [place] [address] 65865 Potassium [Moles/Vol] 4.2 mmol/L Normal 3.5-5.0 [facility] Comment on above: Performed By: #### C 7ED #### [facility] (DEFAULT) [address] [place] [address] 84164 Protein [Mass/Vol] 6.5 g/dL Normal 6.4-8.3 [facility] Comment on above: Performed By: #### C 7ED #### [facility] (DEFAULT) [address] [place] [address] 51571 Sodium [Moles/Vol] 142 mmol/L Normal 135-145 [facility] Comment on above: Performed By: #### C 7ED #### [facility] (DEFAULT) [address] [place] [address] 18539 Urea nitrogen [Mass/Vol] 19 mg/dL Normal 7-25 [facility] Comment on above: Performed By: #### C 7ED #### [facility] (DEFAULT) [address] [place] [address] 33765 Urea nitrogen/Creatinine [Mass ratio] 35 mg/mg Normal [facility] Comment on above: Performed By: #### C 7ED #### [facility] (DEFAULT) [address] [place] [address] 75276 C REACTIVE PROTEINon 025 CRP [Mass/Vol] 1.51 mg/L Normal <10.00 [facility] Comment on above: Performed By: #### L AB980, ESR #### [facility] (DEFAULT) [address] [place] [address] 99000 CBC AND ELECTRONIC DIFFon Basophils (Bld) [#/Vol] 0.05 10*3/uL Normal 0.00-0.15 [facility] Comment on above: Performed By: #### C KB, CMPN, CRP #### [facility] (DEFAULT) [address] [place] [address] 35597 Basophils/100 WBC (Bld) 0.5 % Normal [facility] Comment on above: Performed By: #### C KB, CMPN, CRP #### [facility] (DEFAULT) [address] [address] DIFF STATUS Electronic Differential Normal [facility] Comment on above: Performed By: #### C PAUL, CMPN, CRP #### [facility] (DEFAULT) [address] [place] [address] 41614 Eosinophils (Bld) [#/Vol] 0.19 10*3/uL Normal 0.00-0.42 [facility] Comment on above: Performed By: #### C PAUL, CMPN, CRP #### [facility] (DEFAULT) [address] [place] [address] 01165 Eosinophils/100 WBC (Bld) 2.1 % Normal [facility] Comment on above: Performed By: #### C PAUL, CMPN, CRP #### [facility] (DEFAULT) [address] [place] [address] 00177 Hematocrit (Bld) [Volume fraction] 41.7 % Normal 34.9-44.3 [facility] Comment on above: Performed By: #### Boogie MILLER, CMPN, CRP #### [facility] (DEFAULT) [address] [place] [address] 08140 Hemoglobin (Bld) [Mass/Vol] 13.8 g/dL Normal 11.4-15.2 [facility] Comment on above: Performed By: #### Boogie MILLER, CMPN, CRP #### [facility] (DEFAULT) [address] [place] [address] 99409 Immature Grans % 0.3 % Normal [facility] Comment on above: Performed By: #### C PAUL, CMPN, CRP #### [facility] (DEFAULT) [address] [place] [address] 23553 Immature Grans Absolute < Normal <=0.08 [facility] Comment on above: Performed By: #### C PAUL, CMPN, CRP #### [facility] (DEFAULT) [address] [place] [address] 35120 Lymphocytes (Bld) [#/Vol] 2.15 10*3/uL Normal 1.16-3.51 [facility] Comment on above: Performed By: #### C PAUL, CMPN, CRP #### [facility] (DEFAULT) [address] [place] [address] 49040 Lymphocytes/100 WBC (Bld) 23.6 % Normal [facility] Comment on above: Performed By: #### C KB, CMPN, CRP #### [facility] (DEFAULT) [address] [place] [address] 84963 MCV (RBC) [Entitic vol] 93.5 fL Normal 79.6-97.7 [facility] Comment on above: Performed By: #### C KB, CMPN, CRP #### [facility] (DEFAULT) [address] [place] [address] 58365 Mean Cell Hgb 30.9 pg Normal 25.9-33.9 [facility] Comment on above: Performed By: #### C KB, CMPN, CRP #### [facility] (DEFAULT) [address] [place] [address] 00524 Mean Cell Hgb Conc 33.1 g/dL Normal 31.4-35.9 [facility] Comment on above: Performed By: #### C KB, CMPN, CRP #### [facility] (DEFAULT) [address] [place] [address] 68980 Monocytes (Bld) [#/Vol] 1.15 10*3/uL High 0.22-0.87 [facility] Comment on above: Performed By: #### C KB, CMPN, CRP #### [facility] (DEFAULT) [address] [place] [address] 44395 Monocytes/100 WBC (Bld) 12.6 % Normal [facility] Comment on above: Performed By: #### C KB, CMPN, CRP #### [facility] (DEFAULT) [address] [place] [address] 24302 Nucleated RBC 0.0 /100 WBC Normal <=0.2 [facility] Comment on above: Performed By: #### C KB, CMPN, CRP #### [facility] (DEFAULT) [address] [place] [address] 41361 Platelet mean volume (Bld) [Entitic vol] 10.4 fL Normal 8.5-12.2 [facility] Comment on above: Performed By: #### C KB, CMPN, CRP #### [facility] (DEFAULT) [address] [place] [address] 66953 Platelets (Bld) [#/Vol] 299 10*3/uL Normal 150-393 [facility] Comment on above: Performed By: #### C KB, CMPN, CRP #### [facility] (DEFAULT) [address] [place] [address] 76366 RBC (Bld) [#/Vol] 4.46 10*6/uL Normal 3.91-5.04 [facility] Comment on above: Performed By: #### C KB, CMPN, CRP #### [facility] (DEFAULT) [address] [place] [address] 37158 RBC Distribution 13.4 % Normal 10.8-14.9 [facility] Comment on above: Performed By: #### C KB, CMPN, CRP #### [facility] (DEFAULT) [address] [place] [address] 06645 Segs + Bands Auto 60.9 % Normal [facility] Comment on above: Performed By: #### C KB, CMPN, CRP #### [facility] (DEFAULT) [address] [place] [address] 56575 Segs + Bands,Absolute Auto 5.55 K/uL Normal 1.64-7.28 [facility] Comment on above: Performed By: #### C KB, CMPN, CRP #### [facility] (DEFAULT) [address] [place] [address] 65212 WBC (Bld) [#/Vol] 9.12 10*3/uL Normal 3.99-11.19 [facility] Comment on above: Performed By: #### C KB, CMPN, CRP #### [facility] (DEFAULT) [address] [place] [address] 89811 CKon 09-15-2024 CK [Catalytic activity/Vol] 20 U/L Low 30-184 [facility] Comment on above: Performed By: #### L AB980, ESR #### [facility] (DEFAULT) [address] [place] [address] 23104 COMPREHENSIVE METABOLIC PANE Rehan 09-15-2024 Albumin [Mass/Vol] 3.8 g/dL Normal 3.5-5.0 [facility] Comment on above: Performed By: #### L AB980, ESR #### [facility] (DEFAULT) [address] [place] [address] 07957 ALP [Catalytic activity/Vol] 166 U/L High 32-126 [facility] Comment on above: Performed By: #### L AB980, ESR #### [facility] (DEFAULT) [address] [place] [address] 16591 ALT [Catalytic activity/Vol] 17 U/L Normal 9-48 [facility] Comment on above: Performed By: #### L AB980, ESR #### [facility] (DEFAULT) [address] [place] [address] 71152 Anion gap [Moles/Vol] 13 mmol/L Normal 7-17 [facility] Comment on above: Performed By: #### L AB980, ESR #### [facility] (DEFAULT) [address] [place] [address] 65662 AST [Catalytic activity/Vol] 18 U/L Normal 10-39 [facility] Comment on above: Performed By: #### L AB980, ESR #### [facility] (DEFAULT) [address] [place] [address] 85670 Bilirubin [Mass/Vol] 0.4 mg/dL Normal <1.5 [facility] Comment on above: Performed By: #### L AB980, ESR #### [facility] (DEFAULT) [address] [place] [address] Calcium [Mass/Vol] 9.6 mg/dL Normal 8.6-10.5 [facility] Comment on above: Performed By: #### L AB980, ESR #### [facility] (DEFAULT) [address] [place] [address] 27284 Chloride [Moles/Vol] 108 mmol/L Normal 98-108 [facility] Comment on above: Performed By: #### L AB980, ESR #### [facility] (DEFAULT) [address] [place] [address] 19184 CO2 [Moles/Vol] 27 mmol/L Normal 21-31 [facility] Comment on above: Performed By: #### L AB980, ESR #### [facility] (DEFAULT) [address] [place] [address] 77181 Creatinine [Mass/Vol] 0.48 mg/dL Low 0.50-1.20 [facility] Comment on above: Performed By: #### L AB980, ESR #### [facility] (DEFAULT) [address] [place] [address] 99806 eGFR, CKD-EPI, Female > Normal >=60 [facility] Comment on above: Result Comment: Repo rted eGFR is based on the CKD-EPI 2020 equation using creatinine, age, and sex. Performed By: #### L AB980, ESR #### [facility] (DEFAULT) [address] [place] [address] 03029 Glucose [Mass/Vol] 97 mg/dL Normal 70-99 [facility] Comment on above: Performed By: #### L AB980, ESR #### [facility] (DEFAULT) [address] [place] [address] 42982 Osmolality [Osmolality] 299 mosm/kg Normal 278-305 [facility] Comment on above: Performed By: #### L AB980, ESR #### [facility] (DEFAULT) [address] [place] [address] 93207 Potassium [Moles/Vol] 3.9 mmol/L Normal 3.5-5.0 [facility] Comment on above: Performed By: #### L AB980, ESR #### [facility] (DEFAULT) [address] [place] [address] 56858 Protein [Mass/Vol] 6.4 g/dL Normal 6.4-8.3 [facility] Comment on above: Performed By: #### L AB980, ESR #### [facility] (DEFAULT) [address] [place] [address] 74987 Sodium [Moles/Vol] 144 mmol/L Normal 135-145 [facility] Comment on above: Performed By: #### L AB980, ESR #### [facility] (DEFAULT) [address] [place] [address] 27523 Urea nitrogen [Mass/Vol] 11 mg/dL Normal 7-25 [facility] Comment on above: Performed By: #### L AB980, ESR #### [facility] (DEFAULT) [address] [place] [address] 22674 Urea nitrogen/Creatinine [Mass ratio] 23 mg/mg Normal [facility] Comment on above: Performed By: #### L AB980, ESR #### [facility] (DEFAULT) [address] [place] [address] 99817 C REACTIVE PROTEINon 024 CRP [Mass/Vol] 0.90 mg/L Normal <10.00 [facility] Comment on above: Performed By: #### C KB, CMPN, CRP #### [facility] (DEFAULT) [address] [place] [address] 29046 CBC AND ELECTRONIC DIFFon Basophils (Bld) [#/Vol] 0.06 10*3/uL Normal 0.00-0.15 [facility] Comment on above: Performed By: #### C KB, CMPN, CRP #### [facility] (DEFAULT) [address] [place] [address] 42328 Basophils/100 WBC (Bld) 0.8 % Normal [facility] Comment on above: Performed By: #### C KB, CMPN, CRP #### [facility] (DEFAULT) [address] [place] [address] 33076 DIFF STATUS Electronic Differential Normal [facility] Comment on above: Performed By: #### C KB, CMPN, CRP #### [facility] (DEFAULT) [address] [place] [address] 60824 Eosinophils (Bld) [#/Vol] 0.17 10*3/uL Normal 0.00-0.42 [facility] Comment on above: Performed By: #### C KB, CMPN, CRP #### [facility] (DEFAULT) [address] [place] [address] 47382 Eosinophils/100 WBC (Bld) 2.2 % Normal [facility] Comment on above: Performed By: #### C KB, CMPN, CRP #### [facility] (DEFAULT) [address] [place] [address] 94633 Hematocrit (Bld) [Volume fraction] 40.3 % Normal 34.9-44.3 [facility] Comment on above: Performed By: #### C KB, CMPN, CRP #### [facility] (DEFAULT) [address] [place] [address] 08963 Hemoglobin (Bld) [Mass/Vol] 13.4 g/dL Normal 11.4-15.2 [facility] Comment on above: Performed By: #### C KB, CMPN, CRP #### [facility] (DEFAULT) [address] [place] [address] 65484 Immature Grans % 0.4 % Normal [facility] Comment on above: Performed By: #### C KB, CMPN, CRP #### [facility] (DEFAULT) [address] [place] [address] 50126 Immature Grans Absolute < Normal <=0.08 [facility] Comment on above: Performed By: #### C KB, CMPN, CRP #### [facility] (DEFAULT) [address] [place] [address] 25949 Lymphocytes (Bld) [#/Vol] 1.84 10*3/uL Normal 1.16-3.51 [facility] Comment on above: Performed By: #### C KB, CMPN, CRP #### [facility] (DEFAULT) [address] [place] [address] 15405 Lymphocytes/100 WBC (Bld) 23.3 % Normal [facility] Comment on above: Performed By: #### C KB, CMPN, CRP #### [facility] (DEFAULT) [address] [place] [address] 84810 MCV (RBC) [Entitic vol] 93.7 fL Normal 79.6-97.[address] [facility] Comment on above: Performed By: #### C KB, CMPN, CRP #### [facility] (DEFAULT) [address] [place] [address] 29586 Mean Cell Hgb 31.2 pg Normal 25.9-33.9 [facility] Comment on above: Performed By: #### C KB, CMPN, CRP #### [facility] (DEFAULT) [address] [place] [address] 61532 Mean Cell Hgb Conc 33.3 g/dL Normal 31.4-35.9 [facility] Comment on above: Performed By: #### C KB, CMPN, CRP #### [facility] (DEFAULT) [address] [place] [address] 45040 Monocytes (Bld) [#/Vol] 0.81 10*3/uL Normal 0.22-0.87 [facility] Comment on above: Performed By: #### C KB, CMPN, CRP #### [facility] (DEFAULT) [address] [place] [address] 27645 Monocytes/100 WBC (Bld) 10.3 % Normal [facility] Comment on above: Performed By: #### C KB, CMPN, CRP #### [facility] (DEFAULT) [address] [place] [address] 93020 Nucleated RBC 0.0 /100 WBC Normal <=0.2 [facility] Comment on above: Performed By: #### C KB, CMPN, CRP #### [facility] (DEFAULT) [address] [place] [address] 98686 Platelet mean volume (Bld) [Entitic vol] 10.4 fL Normal 8.5-12.2 [facility] Comment on above: Performed By: #### C KB, CMPN, CRP #### [facility] (DEFAULT) [address] [place] [address] 72911 Platelets (Bld) [#/Vol] 283 10*3/uL Normal 150-393 [facility] Comment on above: Performed By: #### C KB, CMPN, CRP #### [facility] (DEFAULT) [address] [place] [address] 70050 RBC (Bld) [#/Vol] 4.30 10*6/uL Normal 3.91-5.04 [facility] Comment on above: Performed By: #### C KB, CMPN, CRP #### [facility] (DEFAULT) [address] [place] [address] 02777 RBC Distribution 13.3 % Normal 10.8-14.9 [facility] Comment on above: Performed By: #### C KB, CMPN, CRP #### [facility] (DEFAULT) [address] [place] [address] 66485 Segs + Bands Auto 63.0 % Normal [facility] Comment on above: Performed By: #### C KB, CMPN, CRP #### [facility] (DEFAULT) [address] [place] [address] 01129 Segs + Bands,Absolute Auto 4.98 K/uL Normal 1.64-7.28 [facility] Comment on above: Performed By: #### C KB, CMPN, CRP #### [facility] (DEFAULT) [address] [place] [address] 69884 WBC (Bld) [#/Vol] 7.89 10*3/uL Normal 3.99-11.19 [facility] Comment on above: Performed By: #### Boogie MILLER, CMPN, CRP #### [facility] (DEFAULT) [address] [place] [address] 84808 CKon 09-08-2024 CK [Catalytic activity/Vol] 17 U/L Low 30-184 [facility] Comment on above: Performed By: #### C PAUL, CMPN, CRP #### [facility] (DEFAULT) [address] [place] [address] 59625 COMPREHENSIVE METABOLIC PANE Rehan 09-08-2024 Albumin [Mass/Vol] 3.6 g/dL Normal 3.5-5.0 [facility] Comment on above: Performed By: #### Boogie MILLER, CMPN, CRP #### [facility] (DEFAULT) [address] [place] [address] 17461 ALP [Catalytic activity/Vol] 158 U/L High 32-126 [facility] Comment on above: Performed By: #### Boogie MILLER, CMPN, CRP #### [facility] (DEFAULT) [address] [place] [address] 45205 ALT [Catalytic activity/Vol] 24 U/L Normal 9-48 [facility] Comment on above: Performed By: #### C PAUL, CMPN, CRP #### [facility] (DEFAULT) [address] [place] [address] 69284 Anion gap [Moles/Vol] 14 mmol/L Normal 7-17 [facility] Comment on above: Performed By: #### C PAUL, CMPN, CRP #### [facility] (DEFAULT) [address] [place] [address] 00473 AST [Catalytic activity/Vol] 22 U/L Normal 10-39 [facility] Comment on above: Performed By: #### C PAUL, CMPN, CRP #### [facility] (DEFAULT) [address] [place] [address] 84491 Bilirubin [Mass/Vol] 0.6 mg/dL Normal <1.5 [facility] Comment on above: Performed By: #### Boogie MILLER, CMPN, CRP #### [facility] (DEFAULT) [address] [place] [address] 61078 Calcium [Mass/Vol] 9.2 mg/dL Normal 8.6-10.5 [facility] Comment on above: Performed By: #### C PAUL, CMPN, CRP #### [facility] (DEFAULT) [address] [place] [address] 44744 Chloride [Moles/Vol] 108 mmol/L Normal 98-108 [facility] Comment on above: Performed By: #### Boogie MILLER, CMPN, CRP #### [facility] (DEFAULT) [address] [place] [address] 34068 CO2 [Moles/Vol] 26 mmol/L Normal 21-31 [facility] Comment on above: Performed By: #### C PAUL, CMPN, CRP #### [facility] (DEFAULT) [address] [place] [address] 97521 Creatinine [Mass/Vol] 0.52 mg/dL Normal 0.50-1.20 [facility] Comment on above: Performed By: #### Boogie MILLER, CMPN, CRP #### [facility] (DEFAULT) [address] [place] [address] 14215 eGFR, CKD-EPI, Female > Normal >=60 [facility] Comment on above: Result Comment: Repo rted eGFR is based on the CKD-EPI 2020 equation using creatinine, age, and sex. Performed By: #### C PAUL, CMPN, CRP #### [facility] (DEFAULT) [address] [place] [address] 66185 Glucose [Mass/Vol] 92 mg/dL Normal 70-99 [facility] Comment on above: Performed By: #### C PAUL, CMPN, CRP #### [facility] (DEFAULT) [address] [place] [address] 13804 Osmolality [Osmolality] 297 mosm/kg Normal 278-305 [facility] Comment on above: Performed By: #### Boogie MILLER, CMPN, CRP #### [facility] (DEFAULT) [address] [place] [address] 27248 Potassium [Moles/Vol] 3.6 mmol/L Normal 3.5-5.0 [facility] Comment on above: Performed By: #### Boogie MILLER, CMPN, CRP #### [facility] (DEFAULT) [address] [place] [address] 60272 Protein [Mass/Vol] 6.1 g/dL Low 6.4-8.3 [facility] Comment on above: Performed By: #### Boogie MILLER, CMPN, CRP #### [facility] (DEFAULT) [address] [place] [address] 70126 Sodium [Moles/Vol] 144 mmol/L Normal 135-145 [facility] Comment on above: Performed By: #### C PAUL, CMPN, CRP #### [facility] (DEFAULT) [address] [place] [address] 45167 Urea nitrogen [Mass/Vol] 8 mg/dL Normal 7-25 [facility] Comment on above: Performed By: #### C PAUL, CMPN, CRP #### [facility] (DEFAULT) [address] [place] [address] 84449 Urea nitrogen/Creatinine [Mass ratio] 15 mg/mg Normal [facility] Comment on above: Performed By: #### C PUAL, CMPN, CRP #### [facility] (DEFAULT) [address] [place] [address] 96671 POCT MOLECULAR FLUOrdered By : Nidia Sinhg on 09-05-2024 FLUAV RNA LASHAWN+probe Ql (Unsp spec) Negative [facility] FLUBV RNA LASHAWN+probe Ql (Unsp spec) Negative [facility] Interpretation and review of laboratory results Normal [facility] MOLECULAR FLU, [facility] SARS-COV-2 RAPIDon 08-15 SARS-CoV-2 (COVID-19) RdRp gene LASHAWN+probe Ql (Resp) Not detected NOT DETECTED, INCONCLUSIVE [facility] SARS-CoV-2 (COVID-19) RdRp g libby LASHAWN+probe Ql (Resp)on 09-05-2024 Interpretation and review of laboratory results Normal [facility] C REACTIVE PROTEINon 024 CRP [Mass/Vol] 0.87 mg/L Normal <10.00 [facility] Comment on above: Performed By: #### C KB, CRP, CMPN #### [facility] (DEFAULT) [address] [place] [address] 43731 CBC AND ELECTRONIC DIFFon Basophils (Bld) [#/Vol] 0.05 10*3/uL Normal 0.00-0.15 [facility] Comment on above: Performed By: #### C 7ED #### [facility] (DEFAULT) [address] [place] [address] 22354 Basophils/100 WBC (Bld) 0.6 % Normal [facility] Comment on above: Performed By: #### C 7ED #### [facility] (DEFAULT) [address] [place] [address] 05692 DIFF STATUS Electronic Differential Normal [facility] Comment on above: Performed By: #### C 7ED #### [facility] (DEFAULT) [address] [place] [address] 11424 Eosinophils (Bld) [#/Vol] 0.31 10*3/uL Normal 0.00-0.42 [facility] Comment on above: Performed By: #### C 7ED #### [facility] (DEFAULT) [address] [place] [address] 01480 Eosinophils/100 WBC (Bld) 3.7 % Normal [facility] Comment on above: Performed By: #### C 7ED #### [facility] (DEFAULT) [address] [place] [address] 23337 Hematocrit (Bld) [Volume fraction] 43.5 % Normal 34.9-44.3 [facility] Comment on above: Performed By: #### C 7ED #### [facility] (DEFAULT) [address] [place] [address] 66579 Hemoglobin (Bld) [Mass/Vol] 14.3 g/dL Normal 11.4-15.2 [facility] Comment on above: Performed By: #### C 7ED #### [facility] (DEFAULT) [address] 86343 Immature Grans % 0.4 % Normal [facility] Comment on above: Performed By: #### C 7ED #### [facility] (DEFAULT) [address] 16813 Immature Grans Absolute < Normal <=0.08 [facility] Comment on above: Performed By: #### C 7ED #### [facility] (DEFAULT) [address] [place] [address] 77128 Lymphocytes (Bld) [#/Vol] 1.81 10*3/uL Normal 1.16-3.51 [facility] Comment on above: Performed By: #### C 7ED #### [facility] (DEFAULT) [address] 96902 Lymphocytes/100 WBC (Bld) 21.3 % Normal [facility] Comment on above: Performed By: #### C 7ED #### [facility] (DEFAULT) [address] 14082 MCV (RBC) [Entitic vol] 94.6 fL Normal 79.6-97.[address] [facility] Comment on above: Performed By: #### C 7ED #### [facility] (DEFAULT) [address] [place] [address] 29557 Mean Cell Hgb 31.1 pg Normal 25.9-33.9 [facility] Comment on above: Performed By: #### C 7ED #### [facility] (DEFAULT) [address] 29687 Mean Cell Hgb Conc 32.9 g/dL Normal 31.4-35.9 [facility] Comment on above: Performed By: #### Boogie 7ED #### [facility] (DEFAULT) [address] 45352 Monocytes (Bld) [#/Vol] 1.31 10*3/uL High 0.22-0.87 [facility] Comment on above: Performed By: #### Boogie 7ED #### [facility] (DEFAULT) [address] 87719 Monocytes/100 WBC (Bld) 15.4 % Normal [facility] Comment on above: Performed By: #### Boogie 7ED #### [facility] (DEFAULT) [address] 58400 Nucleated RBC 0.0 /100 WBC Normal <=0.2 [facility] Comment on above: Performed By: #### Boogie 7ED #### [facility] (DEFAULT) [address] 51039 Platelet mean volume (Bld) [Entitic vol] 10.5 fL Normal 8.5-12.2 [facility] Comment on above: Performed By: #### Boogie 7ED #### [facility] (DEFAULT) [address] 92738 Platelets (Bld) [#/Vol] 307 10*3/uL Normal 150-393 [facility] Comment on above: Performed By: #### Boogie 7ED #### [facility] (DEFAULT) [address] 56325 RBC (Bld) [#/Vol] 4.60 10*6/uL Normal 3.91-5.04 [facility] Comment on above: Performed By: #### C 7ED #### [facility] (DEFAULT) [address] [place] [address] 41325 RBC Distribution 13.4 % Normal 10.8-14.9 [facility] Comment on above: Performed By: #### Boogie MccrackenD #### [facility] (DEFAULT) [address] [place] [address] 67309 Segs + Bands Auto 58.6 % Normal [facility] Comment on above: Performed By: #### Boogie MccrackenD #### [facility] (DEFAULT) [address] [place] [address] 23524 Segs + Bands,Absolute Auto 4.97 K/uL Normal 1.64-7.28 [facility] Comment on above: Performed By: #### Boogie MccrackenD #### [facility] (DEFAULT) [address] [place] [address] 37091 WBC (Bld) [#/Vol] 8.48 10*3/uL Normal 3.99-11.19 [facility] Comment on above: Performed By: #### Boogie MccrackenD #### [facility] (DEFAULT) [address] [place] [address] 40176 CKon 09-01-2024 CK [Catalytic activity/Vol] 19 U/L Low 30-184 [facility] Comment on above: Performed By: #### C KB, CRP, CMPN #### [facility] (DEFAULT) [address] [place] [address] 43544 COMPREHENSIVE METABOLIC PANE Rehan 09-01-2024 Albumin [Mass/Vol] 3.9 g/dL Normal 3.5-5.0 [facility] Comment on above: Performed By: #### C KB, CRP, CMPN #### [facility] (DEFAULT) [address] [place] [address] 17208 ALP [Catalytic activity/Vol] 166 U/L High 32-126 [facility] Comment on above: Performed By: #### C KB, CRP, CMPN #### [facility] (DEFAULT) [address] [place] [address] 21113 ALT [Catalytic activity/Vol] 29 U/L Normal 9-48 [facility] Comment on above: Performed By: #### Boogie MILLER, CRP, CMPN #### [facility] (DEFAULT) [address] [place] [address] 53854 Anion gap [Moles/Vol] 13 mmol/L Normal 7-17 [facility] o [facility] Comment on above: Performed By: #### C PAUL, CRP, CMPN #### [facility] (DEFAULT) [address] [place] [address] 83194 AST [Catalytic activity/Vol] 24 U/L Normal 10-39 [facility] Comment on above: Performed By: #### Boogie MILLER, CRP, CMPN #### [facility] (DEFAULT) [address] [place] [address] 74979 Bilirubin [Mass/Vol] 0.5 mg/dL Normal <1.5 [facility] Comment on above: Performed By: #### C KB, CRP, CMPN #### [facility] (DEFAULT) [address] [place] [address] 42447 Calcium [Mass/Vol] 9.5 mg/dL Normal 8.6-10.5 [facility] Comment on above: Performed By: #### C KB, CRP, CMPN #### [facility] (DEFAULT) [address] [place] [address] 16350 Chloride [Moles/Vol] 106 mmol/L Normal 98-108 [facility] Comment on above: Performed By: #### C KB, CRP, CMPN #### [facility] (DEFAULT) [address] [place] [address] 05257 CO2 [Moles/Vol] 26 mmol/L Normal 21-31 [facility] Comment on above: Performed By: #### C KB, CRP, CMPN #### [facility] (DEFAULT) [address] [place] [address] 15807 Creatinine [Mass/Vol] 0.55 mg/dL Normal 0.50-1.20 [facility] Comment on above: Performed By: #### C PAUL, CRP, CMPN #### [facility] (DEFAULT) [address] [place] [address] 43822 eGFR, CKD-EPI, Female > Normal >=60 [facility] Comment on above: Result Comment: Repo rted eGFR is based on the CKD-EPI 2020 equation using creatinine, age, and sex. Performed By: #### C KB, CRP, CMPN #### [facility] (DEFAULT) [address] [place] [address] 41936 Glucose [Mass/Vol] 108 mg/dL High 70-99 [facility] Comment on above: Performed By: #### C KB, CRP, CMPN #### [facility] (DEFAULT) [address] [place] [address] 64915 Osmolality [Osmolality] 296 mosm/kg Normal 278-305 [facility] Comment on above: Performed By: #### C KB, CRP, CMPN #### [facility] (DEFAULT) [address] [place] [address] 80111 Potassium [Moles/Vol] 4.1 mmol/L Normal 3.5-5.0 [facility] Comment on above: Performed By: #### C KB, CRP, CMPN #### [facility] (DEFAULT) [address] [place] [address] 48733 Protein [Mass/Vol] 6.8 g/dL Normal 6.4-8.3 [facility] Comment on above: Performed By: #### C KB, CRP, CMPN #### [facility] (DEFAULT) [address] [place] [address] 33107 Sodium [Moles/Vol] 141 mmol/L Normal 135-145 [facility] Comment on above: Performed By: #### C KB, CRP, CMPN #### [facility] (DEFAULT) [address] [place] [address] 56727 Urea nitrogen [Mass/Vol] 14 mg/dL Normal 7-25 [facility] Comment on above: Performed By: #### C KB, CRP, CMPN #### [facility] (DEFAULT) [address] [place] [address] 52049 Urea nitrogen/Creatinine [Mass ratio] 25 mg/mg Normal [facility] Comment on above: Performed By: #### C KB, CRP, CMPN #### [facility] (DEFAULT) [address] [place] [address] 23028 CBC AND ELECTRONIC DIFFon Basophils (Bld) [#/Vol] 0.06 10*3/uL 0.00 - 0.15 K/uL [facility] Basophils/100 WBC (Bld) 0.8 % [facility] Differential cell count method Nom (Bld) Electronic Differential [facility] Eosinophils (Bld) [#/Vol] 0.24 10*3/uL 0.00 - 0.42 K/uL [facility] Eosinophils/100 WBC (Bld) 3.2 % [facility] Erythrocyte distribution width (RBC) [Ratio] 13.2 % 10.8 - 14.9 % [facility] Hematocrit (Bld) [Volume fraction] 43.3 % 34.9 - 44.3 % [facility] Hemoglobin (Bld) [Mass/Vol] 14.8 g/dL 11.4 - 15.2 g/dL [facility] Immature granulocytes (Bld) [#/Vol] K/uL NINF - 0.08 K/uL [facility] Immature granulocytes/100 WBC (Bld) 0.3 % [facility] Interpretation and review of laboratory results Abnormal [facility] Lymphocytes (Bld) [#/Vol] 1.75 10*3/uL 1.16 - 3.51 K/uL [facility] Lymphocytes/100 WBC (Bld) 23.6 % [facility] MCH (RBC) [Entitic mass] 32.2 pg 25.9 - 33.9 pg [facility] MCHC (RBC) [Mass/Vol] 34.2 g/dL 31.4 - 35.9 g/dL [facility] MCV (RBC) [Entitic vol] 94.1 fL 79.6 - 97.7 fL [facility] Monocytes (Bld) [#/Vol] 0.99 10*3/uL High 0.22 - 0.87 K/uL [facility] Monocytes/100 WBC (Bld) 13.3 % O [facility] Neutrophils (Bld) [#/Vol] 4.36 10*3/uL 1.64 - 7.28 K/uL [facility] Nucleated RBC/100 WBC (Bld) [Ratio] 0.0 % NINF [facility] Platelet mean volume (Bld) [Entitic vol] 9.9 fL 8.5 - 12.2 fL [facility] Platelets (Bld) [#/Vol] 291 10*3/uL 150 - 393 K /uL [facility] RBC (Bld) [#/Vol] 4.60 10*6/uL [facility] Segmented neutrophils/100 WBC (Bld) 58.8 % [facility] WBC (Bld) [#/Vol] 7.42 10*3/uL 3.99 - 11. 19 K/uL [facility] Basophils (Bld) [#/Vol] 0.06 10*3/uL Normal 0.00-0.15 [facility] Comment on above: Performed By: #### L AB980, ESR #### [facility] (DEFAULT) [address] [address] Basophils/100 WBC (Bld) 0.8 % Normal [facility] Comment on above: Performed By: #### L AB980, ESR #### [facility] (DEFAULT) [address] [place] [address] 72632 DIFF STATUS Electronic Differential Normal [facility] Comment on above: Performed By: #### L AB980, ESR #### [facility] (DEFAULT) [address] [place] [address] 14901 Eosinophils (Bld) [#/Vol] 0.24 10*3/uL Normal 0.00-0.42 [facility] Comment on above: Performed By: #### L AB980, ESR #### [facility] (DEFAULT) [address] [place] [address] 37981 Eosinophils/100 WBC (Bld) 3.2 % Normal [facility] Comment on above: Performed By: #### L AB980, ESR #### [facility] (DEFAULT) [address] [place] [address] 64223 Hematocrit (Bld) [Volume fraction] 43.3 % Normal 34.9-44.3 [facility] Comment on above: Performed By: #### L AB980, ESR #### [facility] (DEFAULT) [address] [place] [address] 10990 Hemoglobin (Bld) [Mass/Vol] 14.8 g/dL Normal 11.4-15.2 [facility] Comment on above: Performed By: #### L AB980, ESR #### [facility] (DEFAULT) [address] [place] [address] 23062 Immature Grans % 0.3 % Normal [facility] Comment on above: Performed By: #### L AB980, ESR #### [facility] (DEFAULT) [address] [place] [address] 79536 Immature Grans Absolute < Normal <=0.08 [facility] Comment on above: Performed By: #### L AB980, ESR #### [facility] (DEFAULT) [address] [place] [address] 76719 Lymphocytes (Bld) [#/Vol] 1.75 10*3/uL Normal 1.16-3.51 [facility] Comment on above: Performed By: #### L AB980, ESR #### [facility] (DEFAULT) [address] [place] [address] 67889 Lymphocytes/100 WBC (Bld) 23.6 % Normal [facility] Comment on above: Performed By: #### L AB980, ESR #### [facility] (DEFAULT) [address] [place] [address] 91884 MCV (RBC) [Entitic vol] 94.1 fL Normal 79.6-97.7 [facility] Comment on above: Performed By: #### L AB980, ESR #### [facility] (DEFAULT) [address] [place] [address] 67480 Mean Cell Hgb 32.2 pg Normal 25.9-33.9 [facility] Comment on above: Performed By: #### L AB980, ESR #### [facility] (DEFAULT) [address] [place] [address] 63160 Mean Cell Hgb Conc 34.2 g/dL Normal 31.4-35.9 [facility] Comment on above: Performed By: #### L AB980, ESR #### [facility] (DEFAULT) [address] [place] [address] 48959 Monocytes (Bld) [#/Vol] 0.99 10*3/uL High 0.22-0.87 [facility] Comment on above: Performed By: #### L AB980, ESR #### [facility] (DEFAULT) [address] [place] [address] 83110 Monocytes/100 WBC (Bld) 13.3 % Normal [facility] Comment on above: Performed By: #### L AB980, ESR #### [facility] (DEFAULT) [address] [place] [address] 94169 Nucleated RBC 0.0 /100 WBC Normal <=0.2 [facility] Comment on above: Performed By: #### L AB980, ESR #### [facility] (DEFAULT) [address] [place] [address] 11924 Platelet mean volume (Bld) [Entitic vol] 9.9 fL Normal 8.5-12.2 [facility] Comment on above: Performed By: #### L AB980, ESR #### [facility] (DEFAULT) [address] [place] [address] 27738 Platelets (Bld) [#/Vol] 291 10*3/uL Normal 150-393 [facility] Comment on above: Performed By: #### L AB980, ESR #### [facility] (DEFAULT) [address] [place] [address] 31321 RBC (Bld) [#/Vol] 4.60 10*6/uL Normal 3.91-5.04 [facility] Comment on above: Performed By: #### L AB980, ESR #### [facility] (DEFAULT) [address] [place] [address] 30064 RBC Distribution 13.2 % Normal 10.8-14.9 [facility] Comment on above: Performed By: #### L AB980, ESR #### [facility] (DEFAULT) [address] [place] [address] 37728 Segs + Bands Auto 58.8 % Normal [facility] Comment on above: Performed By: #### L AB980, ESR #### [facility] (DEFAULT) [address] [place] [address] 77438 Segs + Bands,Absolute Auto 4.36 K/uL Normal 1.64-7.28 [facility] Comment on above: Performed By: #### L AB980, ESR #### [facility] (DEFAULT) [address] [place] [address] 86893 WBC (Bld) [#/Vol] 7.42 10*3/uL Normal 3.99-11.19 [facility] Comment on above: Performed By: #### L AB980, ESR #### [facility] (DEFAULT) [address] [place] [address] 83038 CH 7 - EDon 08-30-2024 Anion gap [Moles/Vol] 11 mmol/L 7 - 17 mmol/L [facility] Chloride [Moles/Vol] 105 mmol/L 98 - 10 8 mmol/L [facility] CO2 [Moles/Vol] 27 mmol/L 21 - 31 mmol/L [facility] Creatinine [Mass/Vol] 0.50 mg/dL 0.50 - 1.20 mg/dL [facility] eGFR, CKD-EPI, Female - PINF [facility] Comment on above: Reported eGFR is bas ed on the CKD-EPI 2020 equation using creatinine, age, and sex. Glucose [Mass/Vol] 99 mg/dL 70 - 99 mg/dL [facility] Osmolality Calc [Osmolality] 292 [facility] Potassium [Moles/Vol] 4.0 mmol/L 3.5 - 5.0 mmol/L [facility] Sodium [Moles/Vol] 139 mmol/L 135 - 145 mmol/L [facility] Urea nitrogen [Mass/Vol] 16 mg/dL 7 - 25 mg/dL [facility] Urea nitrogen/Creatinine [Mass ratio] 32 mg/mg [facility] Anion gap [Moles/Vol] 11 mmol/L Normal 7-17 [facility] Comment on above: Performed By: #### C 7ED #### [facility] (DEFAULT) [address] [place] [address] 68683 Chloride [Moles/Vol] 105 mmol/L Normal 98-108 [facility] Comment on above: Performed By: #### C 7ED #### [facility] (DEFAULT) [address] [place] [address] 43116 CO2 [Moles/Vol] 27 mmol/L Normal 21-31 [facility] Comment on above: Performed By: #### C 7ED #### [facility] (DEFAULT) [address] [place] [address] Creatinine [Mass/Vol] 0.50 mg/dL Normal 0.50-1.20 [facility] Comment on above: Performed By: #### C 7ED #### [facility] (DEFAULT) [address] [place] [address] eGFR, CKD-EPI, Female > Normal >=60 [facility] Comment on above: Result Comment: Repo rted eGFR is based on the CKD-EPI 2020 equation using creatinine, age, and sex. Performed By: #### C 7ED #### [facility] (DEFAULT) [address] [place] [address] 10994 Glucose [Mass/Vol] 99 mg/dL Normal 70-99 [facility] Comment on above: Performed By: #### C 7ED #### [facility] (DEFAULT) [address] [place] [address] 45196 Osmolality [Osmolality] 292 mosm/kg Normal 278-305 [facility] Comment on above: Performed By: #### C 7ED #### [facility] (DEFAULT) [address] [place] [address] 07559 Potassium [Moles/Vol] 4.0 mmol/L Normal 3.5-5.0 [facility] Comment on above: Performed By: #### C 7ED #### [facility] (DEFAULT) [address] [place] [address] 62523 Sodium [Moles/Vol] 139 mmol/L Normal 135-145 [facility] Comment on above: Performed By: #### C 7ED #### [facility] (DEFAULT) [address] [place] [address] 90791 Urea nitrogen [Mass/Vol] 16 mg/dL Normal 7-25 [facility] Comment on above: Performed By: #### C 7ED #### [facility] (DEFAULT) [address] [place] [address] 84094 Urea nitrogen/Creatinine [Mass ratio] 32 mg/mg Normal [facility] Comment on above: Performed By: #### C 7ED #### [facility] (DEFAULT) [address] [place] [address] TEMPORAL BONES WITHOUT CO NTRASTon 08-30-2024 CT TEMPORAL BONES WITHOUT CONTRAST EXAM: CT TEMPORAL BONES WITHOUT CONTRAST, 08/30/2024 16:36 PM COMPARISON: MRI brain 02/15/2012. CLINICAL INDICATIONS: 68 years Female r/o mastoid air cell infection RELEVANT CLINICAL HISTORY: TECHNIQUE: A series of thin section transaxial computerized tomographic images are obtained through the level of the temporal bones using high resolution bone algorithm without IV contrast. Thin section high-resolution coronal and sagittal reformats are provided with a reduced field of view. FINDINGS: RIGHT TEMPORAL BONE: External ear: Mild thickening. External auditory canal: Asymmetric peripheral soft tissue thickening suggestive of otitis externa. No bone destruction. Petromastoid region: Mastoid air cells are well-developed. Air cells are partially opacified. Tegmen tympani and mastoid roof are intact. Middle ear: Well-developed. No opacification. Scutum is sharp. Normal appearance of the middle ear ossicles. Labyrinth: Labyrinthine structures are well-developed. No imaging evidence of otosclerosis. Semicircular canal espinal are intact. Internal auditory canal: Normal in appearance. Vestibular aqueduct: Normal in appearance. Facial nerve canal: Normal in appearance. Carotid canal: Normal in appearance. Jugular bulb: Normal in appearance. LEFT TEMPORAL BONE: External ear: Normal in appearance. External auditory canal: Normal in appearance. Petromastoid region: Mastoid air cells are well-developed. Air cells are partially opacified. Tegmen tympani and mastoid roof are intact. Middle ear: Well-developed. No opacification. Scutum is sharp. Normal appearance of the middle ear ossicles. Labyrinth: Labyrinthine structures are well-developed. No imaging evidence of otosclerosis. Semicircular canal espinal are intact. Internal auditory canal: Normal in appearance. Vestibular aqueduct: Normal in appearance. Facial nerve canal: Normal in appearance. Carotid canal: Normal in appearance. Jugular bulb: Normal in appearance. Other Findings: No additional, notable findings. IMPRESSION: 1. Mild soft tissue thickening along the right external ear and external auditory canal could be related to otitis externa. 2. Nonspecific patchy partial mastoid air cell opacification bilaterally, somewhat greater on the right. This is entirely nonspecific and could simply be reactive, although careful clinical correlation and monitoring for developing mastoiditis is requested. No destructive bony changes to suggest coalescent mastoiditis. Normal [facility] CT Temporal bone WO contrast on 08-30-2024 IMPRESSION: 1. Mild soft tissue thickening along the right external ear and external auditory canal could be related to otitis externa. 2. Nonspecific patchy partial mastoid air cell opacification bilaterally, somewhat greater on the right. This is entirely nonspecific and could simply be reactive, although careful clinical correlation and monitoring for developing mastoiditis is requested. No destructive bony changes to suggest coalescent mastoiditis. OLOGY EXAM: CT TEMPORAL BONES WITHOUT CONTRAST, 08/30/2024 16:36 PM COMPARISON: MRI brain 02/15/2012. CLINICAL INDICATIONS: 68 years Female r/o mastoid air cell infection RELEVANT CLINICAL HISTORY: TECHNIQUE: A series of thin section transaxial computerized tomographic images are obtained through the level of the temporal bones using high resolution bone algorithm without IV contrast. Thin section high-resolution coronal and sagittal reformats are provided with a reduced field of view. FINDINGS: RIGHT TEMPORAL BONE: External ear: Mild thickening. External auditory canal: Asymmetric peripheral soft tissue thickening suggestive of otitis externa. No bone destruction. Petromastoid region: Mastoid air cells are well-developed. Air cells are partially opacified. Tegmen tympani and mastoid roof are intact. Middle ear: Well-developed. No opacification. Scutum is sharp. Normal appearance of the middle ear ossicles. Labyrinth: Labyrinthine structures are well-developed. No imaging evidence of otosclerosis. Semicircular canal espinal are intact. Internal auditory canal: Normal in appearance. Vestibular aqueduct: Normal in appearance. Facial nerve canal: Normal in appearance. Carotid canal: Normal in appearance. Jugular bulb: Normal in appearance. LEFT TEMPORAL BONE: External ear: Normal in appearance. External auditory canal: Normal in appearance. Petromastoid region: Mastoid air cells are well-developed. Air cells are partially opacified. Tegmen tympani and mastoid roof are intact. Middle ear: Well-developed. No opacification. Scutum is sharp. Normal appearance of the middle ear ossicles. Labyrinth: Labyrinthine structures are well-developed. No imaging evidence of otosclerosis. Semicircular canal espinal are intact. Internal auditory canal: Normal in appearance. Vestibular aqueduct: Normal in appearance. Facial nerve canal: Normal in appearance. Carotid canal: Normal in appearance. Jugular bulb: Normal in appearance. Other Findings: No additional, notable findings. RADIOLOGY Jean Jefferson MD - 08/30/2024 EXAM: CT TEMPORAL BONES WITHOUT CONTRAST, 08/30/2024 16:36 PM COMPARISON: MRI brain 02/15/2012. CLINICAL INDICATIONS: 68 years Female r/o mastoid air cell infection RELEVANT CLINICAL HISTORY: TECHNIQUE: A series of thin section transaxial computerized tomographic images are obtained through the level of the temporal bones using high resolution bone algorithm without IV contrast. Thin section high-resolution coronal and sagittal reformats are provided with a reduced field of view. FINDINGS: RIGHT TEMPORAL BONE: External ear: Mild thickening. External auditory canal: Asymmetric peripheral soft tissue thickening suggestive of otitis externa. No bone destruction. Petromastoid region: Mastoid air cells are well-developed. Air cells are partially opacified. Tegmen tympani and mastoid roof are intact. Middle ear: Well-developed. No opacification. Scutum is sharp. Normal appearance of the middle ear ossicles. Labyrinth: Labyrinthine structures are well-developed. No imaging evidence of otosclerosis. Semicircular canal espinal are intact. Internal auditory canal: Normal in appearance. Vestibular aqueduct: Normal in appearance. Facial nerve canal: Normal in appearance. Carotid canal: Normal in appearance. Jugular bulb: Normal in appearance. LEFT TEMPORAL BONE: External ear: Normal in appearance. External auditory canal: Normal in appearance. Petromastoid region: Mastoid air cells are well-developed. Air cells are partially opacified. Tegmen tympani and mastoid roof are intact. Middle ear: Well-developed. No opacification. Scutum is sharp. Normal appearance of the middle ear ossicles. Labyrinth: Labyrinthine structures are well-developed. No imaging evidence of otosclerosis. Semicircular canal espinal are intact. Internal auditory canal: Normal in appearance. Vestibular aqueduct: Normal in appearance. Facial nerve canal: Normal in appearance. Carotid canal: Normal in appearance. Jugular bulb: Normal in appearance. Other Findings: No additional, notable findings. IMPRESSION IMPRESSION: 1. Mild soft tissue thickening along the right external ear and external auditory canal could be related to otitis externa. 2. Nonspecific patchy partial mastoid air cell opacification bilaterally, somewhat greater on the right. This is entirely nonspecific and could simply be reactive, although careful clinical correlation and monitoring for developing mastoiditis is requested. No destructive bony changes to suggest coalescent mastoiditis. [facility] Radiology Study observation (narrative) [facility] CT Temporal bone WO contrast Ordered By: Jean Jefferson on 08-30-2024 [facility] Work Phone: No Panel Informationon 08-30 [facility] C REACTIVE PROTEINon 024 CRP [Mass/Vol] 4.27 mg/L Normal <10.00 [facility] Comment on above: Performed By: #### C KB, CMPN, CRP #### [facility] (DEFAULT) [address] [place] [address] 25533 CBC AND ELECTRONIC DIFFon Basophils (Bld) [#/Vol] 0.06 10*3/uL Normal 0.00-0.15 [facility] Comment on above: Performed By: #### C KB, CRP, CMPN #### [facility] (DEFAULT) [address] [place] [address] 47165 Basophils/100 WBC (Bld) 0.6 % Normal [facility] Comment on above: Performed By: #### C KB, CRP, CMPN #### [facility] (DEFAULT) [address] [place] [address] 31745 DIFF STATUS Electronic Differential Normal [facility] Comment on above: Performed By: #### C KB, CRP, CMPN #### [facility] (DEFAULT) [address] [place] [address] 21683 Eosinophils (Bld) [#/Vol] 0.29 10*3/uL Normal 0.00-0.42 [facility] Comment on above: Performed By: #### C KB, CRP, CMPN #### [facility] (DEFAULT) [address] [place] [address] 36360 Eosinophils/100 WBC (Bld) 3.0 % Normal [facility] Comment on above: Performed By: #### C KB, CRP, CMPN #### [facility] (DEFAULT) [address] [place] [address] 44598 Hematocrit (Bld) [Volume fraction] 43.4 % Normal 34.9-44.3 [facility] Comment on above: Performed By: #### C KB, CRP, CMPN #### [facility] (DEFAULT) [address] [place] [address] 25467 Hemoglobin (Bld) [Mass/Vol] 14.3 g/dL Normal 11.4-15.2 [facility] Comment on above: Performed By: #### C KB, CRP, CMPN #### [facility] (DEFAULT) [address] [place] [address] 67281 Immature Grans % 0.4 % Normal [facility] Comment on above: Performed By: #### C KB, CRP, CMPN #### [facility] (DEFAULT) [address] [place] [address] 10943 Immature Grans Absolute 0.04 K/uL Normal <=0.08 [facility] Comment on above: Performed By: #### C KB, CRP, CMPN #### [facility] (DEFAULT) [address] [place] [address] 19639 Lymphocytes (Bld) [#/Vol] 1.89 10*3/uL Normal 1.16-3.51 [facility] Comment on above: Performed By: #### C KB, CRP, CMPN #### [facility] (DEFAULT) [address] [place] [address] 08204 Lymphocytes/100 WBC (Bld) 19.2 % Normal [facility] Comment on above: Performed By: #### C KB, CRP, CMPN #### [facility] (DEFAULT) [address] [place] [address] 89707 MCV (RBC) [Entitic vol] 95.8 fL Normal 79.6-97.7 [facility] Comment on above: Performed By: #### C KB, CRP, CMPN #### [facility] (DEFAULT) [address] [place] [address] 54118 Mean Cell Hgb 31.6 pg Normal 25.9-33.9 [facility] Comment on above: Performed By: #### C KB, CRP, CMPN #### [facility] (DEFAULT) [address] [place] [address] 56183 Mean Cell Hgb Conc 32.9 g/dL Normal 31.4-35.9 [facility] Comment on above: Performed By: #### C KB, CRP, CMPN #### [facility] (DEFAULT) [address] [place] [address] 23880 Monocytes (Bld) [#/Vol] 0.91 10*3/uL High 0.22-0.87 [facility] Comment on above: Performed By: #### C KB, CRP, CMPN #### [facility] (DEFAULT) [address] [place] [address] 59471 Monocytes/100 WBC (Bld) 9.3 % Normal [facility] Comment on above: Performed By: #### C KB, CRP, CMPN #### [facility] (DEFAULT) [address] [place] [address] 24741 Nucleated RBC 0.0 /100 WBC Normal <=0.2 [facility] Comment on above: Performed By: #### C KB, CRP, CMPN #### [facility] (DEFAULT) [address] [place] [address] 39557 Platelet mean volume (Bld) [Entitic vol] 10.6 fL Normal 8.5-12.2 [facility] Comment on above: Performed By: #### C KB, CRP, CMPN #### [facility] (DEFAULT) [address] [place] [address] 21133 Platelets (Bld) [#/Vol] 295 10*3/uL Normal 150-393 [facility] Comment on above: Performed By: #### C KB, CRP, CMPN #### [facility] (DEFAULT) [address] [place] [address] 12701 RBC (Bld) [#/Vol] 4.53 10*6/uL Normal 3.91-5.04 [facility] Comment on above: Performed By: #### C KB, CRP, CMPN #### [facility] (DEFAULT) [address] [place] [address] 68421 RBC Distribution 13.3 % Normal 10.8-14.9 [facility] Comment on above: Performed By: #### C KB, CRP, CMPN #### [facility] (DEFAULT) [address] [place] [address] 28385 Segs + Bands Auto 67.5 % Normal [facility] Comment on above: Performed By: #### C KB, CRP, CMPN #### [facility] (DEFAULT) [address] [place] [address] 87444 Segs + Bands,Absolute Auto 6.64 K/uL Normal 1.64-7.28 [facility] Comment on above: Performed By: #### C KB, CRP, CMPN #### [facility] (DEFAULT) [address] [place] [address] 52689 WBC (Bld) [#/Vol] 9.83 10*3/uL Normal 3.99-11.19 [facility] Comment on above: Performed By: #### C KB, CRP, CMPN #### [facility] (DEFAULT) [address] [place] [address] 29547 COMPREHENSIVE METABOLIC PANE Rehan 08-25-2024 Albumin [Mass/Vol] 3.8 g/dL Normal 3.5-5.0 [facility] Comment on above: Performed By: #### C KB, CMPN, CRP #### [facility] (DEFAULT) [address] [place] [address] 42026 ALP [Catalytic activity/Vol] 178 U/L High 32-126 [facility] Comment on above: Performed By: #### Boogie MILLER CMPN, CRP #### [facility] (DEFAULT) [address] [place] [address] 88302 ALT [Catalytic activity/Vol] 33 U/L Normal 9-48 [facility] Comment on above: Performed By: #### Boogie MILLER, CMPN, CRP #### [facility] (DEFAULT) [address] [place] [address] 02788 Anion gap [Moles/Vol] 13 mmol/L Normal 7-17 [facility] Comment on above: Performed By: #### Boogie MILLER, CMPN, CRP #### [facility] (DEFAULT) [address] [place] [address] 05800 AST [Catalytic activity/Vol] 30 U/L Normal 10-39 [facility] Comment on above: Performed By: #### Boogie MILLER, CMPN, CRP #### [facility] (DEFAULT) [address] [place] [address] 98774 Bilirubin [Mass/Vol] 0.5 mg/dL Normal <1.5 [facility] Comment on above: Performed By: #### Boogie MILLER, CMPN, CRP #### [facility] (DEFAULT) [address] [place] [address] 87233 Calcium [Mass/Vol] 9.4 mg/dL Normal 8.6-10.5 [facility] Comment on above: Performed By: #### Boogie MILLER, CMPN, CRP #### [facility] (DEFAULT) [address] [place] [address] 99479 Chloride [Moles/Vol] 108 mmol/L Normal 98-108 [facility] Comment on above: Performed By: #### Boogie MILLER, CMPN, CRP #### [facility] (DEFAULT) [address] [place] [address] 79409 CO2 [Moles/Vol] 26 mmol/L Normal 21-31 [facility] Comment on above: Performed By: #### Boogie MILLER CMPN, CRP #### [facility] (DEFAULT) [address] [place] [address] 64229 Creatinine [Mass/Vol] 0.56 mg/dL Normal 0.50-1.20 [facility] Comment on above: Performed By: #### Boogie MILLER, CMPN, CRP #### [facility] (DEFAULT) [address] [place] [address] 68124 eGFR, CKD-EPI, Female > Normal >=60 [facility] Comment on above: Result Comment: Repo rted eGFR is based on the CKD-EPI 2020 equation using creatinine, age, and sex. Performed By: #### Boogie MILLER CMPN, CRP #### [facility] (DEFAULT) [address] [place] [address] 95774 Glucose [Mass/Vol] 143 mg/dL High 70-99 [facility] Comment on above: Performed By: #### Boogie MILLER CMPN, CRP #### [facility] (DEFAULT) [address] [place] [address] 72119 Osmolality [Osmolality] 300 mosm/kg Normal 278-305 [facility] Comment on above: Performed By: #### Boogie MILLER CMPN, CRP #### [facility] (DEFAULT) [address] [place] [address] 01975 Potassium [Moles/Vol] 3.9 mmol/L Normal 3.5-5.0 [facility] Comment on above: Performed By: #### Boogie MILLER, CMPN, CRP #### [facility] (DEFAULT) [address] [place] [address] 30927 Protein [Mass/Vol] 6.7 g/dL Normal 6.4-8.3 [facility] Comment on above: Performed By: #### Boogie MILLER, CMPN, CRP #### [facility] (DEFAULT) [address] [place] [address] 70060 Sodium [Moles/Vol] 143 mmol/L Normal 135-145 [facility] Comment on above: Performed By: #### C KB, CMPN, CRP #### [facility] (DEFAULT) [address] [place] [address] 10979 Urea nitrogen [Mass/Vol] 11 mg/dL Normal 7-25 [facility] Comment on above: Performed By: #### C KB, CMPN, CRP #### [facility] (DEFAULT) [address] [place] [address] 74593 Urea nitrogen/Creatinine [Mass ratio] 20 mg/mg Normal [facility] Comment on above: Performed By: #### C KB, CMPN, CRP #### [facility] (DEFAULT) [address] [place] [address] 83612 C REACTIVE PROTEINon 024 CRP [Mass/Vol] 1.14 mg/L Normal <10.00 [facility] Comment on above: Performed By: #### C KB, CRP, CMPN #### [facility] (DEFAULT) [address] [place] [address] 47718 CBC AND ELECTRONIC DIFFon Basophils (Bld) [#/Vol] 0.05 10*3/uL Normal 0.00-0.15 [facility] Comment on above: Performed By: #### C KB, CRP, CMPN #### [facility] (DEFAULT) [address] [place] [address] 34165 Basophils/100 WBC (Bld) 0.6 % Normal [facility] Comment on above: Performed By: #### C KB, CRP, CMPN #### [facility] (DEFAULT) [address] [place] [address] 83518 DIFF STATUS Electronic Differential Normal [facility] Comment on above: Performed By: #### C KB, CRP, CMPN #### [facility] (DEFAULT) [address] [place] [address] 72004 Eosinophils (Bld) [#/Vol] 0.24 10*3/uL Normal 0.00-0.42 [facility] Comment on above: Performed By: #### C KB, CRP, CMPN #### [facility] (DEFAULT) [address] [place] [address] 03002 Eosinophils/100 WBC (Bld) 2.9 % Normal [facility] Comment on above: Performed By: #### C KB, CRP, CMPN #### [facility] (DEFAULT) [address] [place] [address] 31481 Hematocrit (Bld) [Volume fraction] 43.1 % Normal 34.9-44.3 [facility] Comment on above: Performed By: #### C KB, CRP, CMPN #### [facility] (DEFAULT) [address] 27271 Hemoglobin (Bld) [Mass/Vol] 14.3 g/dL Normal 11.4-15.2 [facility] Comment on above: Performed By: #### C KB, CRP, CMPN #### [facility] (DEFAULT) [address] [place] [address] 53009 Immature Grans % 0.4 % Normal [facility] Comment on above: Performed By: #### C KB, CRP, CMPN #### [facility] (DEFAULT) [address] [place] [address] 40293 Immature Grans Absolute < Normal <=0.08 [facility] Comment on above: Performed By: #### C KB, CRP, CMPN #### [facility] (DEFAULT) [address] [place] [address] 03712 Lymphocytes (Bld) [#/Vol] 2.31 10*3/uL Normal 1.16-3.51 [facility] Comment on above: Performed By: #### C KB, CRP, CMPN #### [facility] (DEFAULT) [address] 91484 Lymphocytes/100 WBC (Bld) 28.0 % Normal [facility] Comment on above: Performed By: #### C KB, CRP, CMPN #### [facility] (DEFAULT) [address] [place] [address] 00373 MCV (RBC) [Entitic vol] 94.7 fL Normal 79.6-97.7 [facility] Comment on above: Performed By: #### C KB, CRP, CMPN #### [facility] (DEFAULT) [address] [place] [address] 20411 Mean Cell Hgb 31.4 pg Normal 25.9-33.9 [facility] Comment on above: Performed By: #### C KB, CRP, CMPN #### [facility] (DEFAULT) [address] [place] [address] 77712 Mean Cell Hgb Conc 33.2 g/dL Normal 31.4-35.9 [facility] Comment on above: Performed By: #### C KB, CRP, CMPN #### [facility] (DEFAULT) [address] [place] [address] 42119 Monocytes (Bld) [#/Vol] 0.94 10*3/uL High 0.22-0.87 [facility] Comment on above: Performed By: #### C KB, CRP, CMPN #### [facility] (DEFAULT) [address] [place] [address] 94630 Monocytes/100 WBC (Bld) 11.4 % Normal [facility] Comment on above: Performed By: #### C KB, CRP, CMPN #### [facility] (DEFAULT) [address] [place] [address] 95344 Nucleated RBC 0.0 /100 WBC Normal <=0.2 [facility] Comment on above: Performed By: #### C KB, CRP, CMPN #### [facility] (DEFAULT) [address] [place] [address] 01636 Platelet mean volume (Bld) [Entitic vol] 10.7 fL Normal 8.5-12.2 [facility] Comment on above: Performed By: #### C KB, CRP, CMPN #### [facility] (DEFAULT) [address] [place] [address] 90170 Platelets (Bld) [#/Vol] 332 10*3/uL Normal 150-393 [facility] Comment on above: Performed By: #### C KB, CRP, CMPN #### [facility] (DEFAULT) [address] [place] [address] 07964 RBC (Bld) [#/Vol] 4.55 10*6/uL Normal 3.91-5.04 [facility] Comment on above: Performed By: #### C KB, CRP, CMPN #### [facility] (DEFAULT) [address] [place] [address] 25945 RBC Distribution 13.3 % Normal 10.8-14.9 [facility] Comment on above: Performed By: #### C KB, CRP, CMPN #### [facility] (DEFAULT) [address] [place] [address] 93312 Segs + Bands Auto 56.7 % Normal [facility] Comment on above: Performed By: #### C KB, CRP, CMPN #### [facility] (DEFAULT) [address] [place] [address] 22824 Segs + Bands,Absolute Auto 4.68 K/uL Normal 1.64-7.28 [facility] Comment on above: Performed By: #### C KB, CRP, CMPN #### [facility] (DEFAULT) [address] [place] [address] 55808 WBC (Bld) [#/Vol] 8.25 10*3/uL Normal 3.99-11.19 [facility] Comment on above: Performed By: #### C KB, CRP, CMPN #### [facility] (DEFAULT) [address] [place] [address] 37638 CKon 08-18-2024 CK [Catalytic activity/Vol] 17 U/L Low 30-184 [facility] Comment on above: Performed By: #### C KB, CRP, CMPN #### [facility] (DEFAULT) [address] [place] [address] 42584 COMPREHENSIVE METABOLIC PANE Rehan 08-18-2024 Albumin [Mass/Vol] 4.0 g/dL Normal 3.5-5.0 [facility] Comment on above: Performed By: #### C KB, CRP, CMPN #### [facility] (DEFAULT) [address] [place] [address] 64049 ALP [Catalytic activity/Vol] 183 U/L High 32-126 [facility] Comment on above: Performed By: #### C KB, CRP, CMPN #### [facility] (DEFAULT) [address] [place] [address] 72005 ALT [Catalytic activity/Vol] 25 U/L Normal 9-48 [facility] Comment on above: Performed By: #### C KB, CRP, CMPN #### [facility] (DEFAULT) [address] [place] [address] 61434 Anion gap [Moles/Vol] 13 mmol/L Normal 7-17 [facility] Comment on above: Performed By: #### C KB, CRP, CMPN #### [facility] (DEFAULT) [address] [place] [address] 53475 AST [Catalytic activity/Vol] 21 U/L Normal 10-39 [facility] Comment on above: Performed By: #### C KB, CRP, CMPN #### [facility] (DEFAULT) [address] [place] [address] 57997 Bilirubin [Mass/Vol] 0.5 mg/dL Normal <1.5 [facility] Comment on above: Performed By: #### C KB, CRP, CMPN #### [facility] (DEFAULT) [address] [place] [address] 18408 Calcium [Mass/Vol] 9.8 mg/dL Normal 8.6-10.5 [facility] Comment on above: Performed By: #### C KB, CRP, CMPN #### [facility] (DEFAULT) [address] [place] [address] 58566 Chloride [Moles/Vol] 106 mmol/L Normal 98-108 [facility] Comment on above: Performed By: #### Boogie MILLER CRP, CMPN #### [facility] (DEFAULT) [address] [place] [address] 25620 CO2 [Moles/Vol] 27 mmol/L Normal 21-31 [facility] Comment on above: Performed By: #### Boogie MILLER, CRP, CMPN #### [facility] (DEFAULT) [address] [place] [address] 58539 Creatinine [Mass/Vol] 0.66 mg/dL Normal 0.50-1.20 [facility] Comment on above: Performed By: #### Boogie MILLER CRP, CMPN #### [facility] (DEFAULT) [address] [place] [address] 02178 eGFR, CKD-EPI, Female > Normal >=60 [facility] Comment on above: Result Comment: Repo rted eGFR is based on the CKD-EPI 2020 equation using creatinine, age, and sex. Performed By: #### Boogie MILLER CRP, CMPN #### [facility] (DEFAULT) [address] [place] [address] 01870 Glucose [Mass/Vol] 94 mg/dL Normal 70-99 [facility] Comment on above: Performed By: #### Boogie MILLER CRP, CMPN #### [facility] (DEFAULT) [address] [place] [address] 15998 Osmolality [Osmolality] 297 mosm/kg Normal 278-305 [facility] Comment on above: Performed By: #### Boogie MILLER CRP, CMPN #### [facility] (DEFAULT) [address] [place] [address] 57356 Potassium [Moles/Vol] 4.6 mmol/L Normal 3.5-5.0 [facility] Comment on above: Performed By: #### Boogie MILLER CRP, CMPN #### [facility] (DEFAULT) [address] [place] [address] 02638 Protein [Mass/Vol] 6.9 g/dL Normal 6.4-8.3 [facility] Comment on above: Performed By: #### C KB, CRP, CMPN #### [facility] (DEFAULT) [address] [place] [address] 10156 Sodium [Moles/Vol] 141 mmol/L Normal 135-145 [facility] Comment on above: Performed By: #### C KB, CRP, CMPN #### [facility] (DEFAULT) [address] [place] [address] 29797 Urea nitrogen [Mass/Vol] 18 mg/dL Normal 7-25 [facility] Comment on above: Performed By: #### C KB, CRP, CMPN #### [facility] (DEFAULT) [address] [place] [address] 52167 Urea nitrogen/Creatinine [Mass ratio] 27 mg/mg Normal [facility] Comment on above: Performed By: #### C KB, CRP, CMPN #### [facility] (DEFAULT) [address] [place] [address] 23680 C REACTIVE PROTEINon 024 CRP [Mass/Vol] 1.60 mg/L Normal <10.00 [facility] Comment on above: Performed By: #### C KB, CMPN, CRP #### [facility] (DEFAULT) [address] [place] [address] 35848 CBC AND ELECTRONIC DIFFon Basophils (Bld) [#/Vol] 0.05 10*3/uL Normal 0.00-0.15 [facility] Comment on above: Performed By: #### C KB, CMPN, CRP #### [facility] (DEFAULT) [address] [place] [address] 94960 Basophils/100 WBC (Bld) 1.0 % Normal [facility] Comment on above: Performed By: #### C KB, CMPN, CRP #### [facility] (DEFAULT) [address] [place] [address] 99034 DIFF STATUS Electronic Differential Normal [facility] Comment on above: Performed By: #### Boogie MILLER, CMPN, CRP #### [facility] (DEFAULT) [address] [place] [address] 25626 Eosinophils (Bld) [#/Vol] 0.18 10*3/uL Normal 0.00-0.42 [facility] Comment on above: Performed By: #### C PAUL, CMPN, CRP #### [facility] (DEFAULT) [address] [place] [address] 83146 Eosinophils/100 WBC (Bld) 3.6 % Normal [facility] Comment on above: Performed By: #### Boogie MILLER, CMPN, CRP #### [facility] (DEFAULT) [address] [place] [address] 19605 Hematocrit (Bld) [Volume fraction] 44.4 % High 34.9-44.3 [facility] Comment on above: Performed By: #### Boogie MILLER, CMPN, CRP #### [facility] (DEFAULT) [address] [place] [address] 76647 Hemoglobin (Bld) [Mass/Vol] 14.6 g/dL Normal 11.4-15.2 [facility] Comment on above: Performed By: #### Boogie MILLER, CMPN, CRP #### [facility] (DEFAULT) [address] [place] [address] 03954 Immature Grans % 0.2 % Normal [facility] Comment on above: Performed By: #### C PAUL, CMPN, CRP #### [facility] (DEFAULT) [address] [place] [address] 42402 Immature Grans Absolute < Normal <=0.08 [facility] Comment on above: Performed By: #### C PAUL, CMPN, CRP #### [facility] (DEFAULT) [address] [place] [address] 65193 Lymphocytes (Bld) [#/Vol] 1.02 10*3/uL Low 1.16-3.51 [facility] Comment on above: Performed By: #### C KB, CMPN, CRP #### [facility] (DEFAULT) [address] [place] [address] 80148 Lymphocytes/100 WBC (Bld) 20.6 % Normal [facility] Comment on above: Performed By: #### C KB, CMPN, CRP #### [facility] (DEFAULT) [address] [place] [address] 98642 MCV (RBC) [Entitic vol] 93.9 fL Normal 79.6-97.7 [facility] Comment on above: Performed By: #### C KB, CMPN, CRP #### [facility] (DEFAULT) [address] [place] [address] 80192 Mean Cell Hgb 30.9 pg Normal 25.9-33.9 [facility] Comment on above: Performed By: #### C KB, CMPN, CRP #### [facility] (DEFAULT) [address] [place] [address] 73670 Mean Cell Hgb Conc 32.9 g/dL Normal 31.4-35.9 [facility] Comment on above: Performed By: #### C KB, CMPN, CRP #### [facility] (DEFAULT) [address] [place] [address] 40907 Monocytes (Bld) [#/Vol] 0.59 10*3/uL Normal 0.22-0.87 [facility] Comment on above: Performed By: #### C KB, CMPN, CRP #### [facility] (DEFAULT) [address] [place] [address] 94054 Monocytes/100 WBC (Bld) 11.9 % Normal [facility] Comment on above: Performed By: #### C KB, CMPN, CRP #### [facility] (DEFAULT) [address] [place] [address] 00668 Nucleated RBC 0.0 /100 WBC Normal <=0.2 [facility] Comment on above: Performed By: #### C PAUL, CMPN, CRP #### [facility] (DEFAULT) [address] [place] [address] 02982 Platelet mean volume (Bld) [Entitic vol] 10.5 fL Normal 8.5-12.2 [facility] Comment on above: Performed By: #### C PAUL, CMPN, CRP #### [facility] (DEFAULT) [address] [place] [address] 14098 Platelets (Bld) [#/Vol] 263 10*3/uL Normal 150-393 [facility] Comment on above: Performed By: #### C PAUL, CMPN, CRP #### [facility] (DEFAULT) [address] [place] [address] 29091 RBC (Bld) [#/Vol] 4.73 10*6/uL Normal 3.91-5.04 [facility] Comment on above: Performed By: #### C PAUL, CMPN, CRP #### [facility] (DEFAULT) [address] [place] [address] 35561 RBC Distribution 13.2 % Normal 10.8-14.9 [facility] Comment on above: Performed By: #### C PAUL, CMPN, CRP #### [facility] (DEFAULT) [address] [place] [address] 66034 Segs + Bands Auto 62.7 % Normal [facility] Comment on above: Performed By: #### C PAUL, CMPN, CRP #### [facility] (DEFAULT) [address] [place] [address] 81692 Segs + Bands,Absolute Auto 3.10 K/uL Normal 1.64-7.28 [facility] Comment on above: Performed By: #### C PAUL, CMPN, CRP #### [facility] (DEFAULT) [address] [place] [address] 72729 WBC (Bld) [#/Vol] 4.95 10*3/uL Normal 3.99-11.19 [facility] Comment on above: Performed By: #### Boogie MILLER, CMPN, CRP #### [facility] (DEFAULT) [address] [place] [address] 70011 COMPREHENSIVE METABOLIC PANE Rehan 08-10-2024 Albumin [Mass/Vol] 4.0 g/dL Normal 3.5-5.0 [facility] Comment on above: Performed By: #### Boogie MILLER, CMPN, CRP #### [facility] (DEFAULT) [address] [place] [address] 70081 ALP [Catalytic activity/Vol] 197 U/L High 32-126 [facility] Comment on above: Performed By: #### Boogie MILLER, CMPN, CRP #### [facility] (DEFAULT) [address] [place] [address] 14089 ALT [Catalytic activity/Vol] 24 U/L Normal 9-48 [facility] Comment on above: Performed By: #### Boogie MILLER, CMPN, CRP #### [facility] (DEFAULT) [address] [place] [address] 43603 Anion gap [Moles/Vol] 12 mmol/L Normal 7-17 [facility] Comment on above: Performed By: #### Boogie MILLER, CMPN, CRP #### [facility] (DEFAULT) [address] [place] [address] 35482 AST [Catalytic activity/Vol] 24 U/L Normal 10-39 [facility] Comment on above: Performed By: #### Boogie MILLER, CMPN, CRP #### [facility] (DEFAULT) [address] [place] [address] 51610 Bilirubin [Mass/Vol] 0.8 mg/dL Normal <1.5 [facility] Comment on above: Performed By: #### Boogie MILLER, CMPN, CRP #### [facility] (DEFAULT) [address] [place] [address] 86858 Calcium [Mass/Vol] 9.5 mg/dL Normal 8.6-10.5 [facility] Comment on above: Performed By: #### KISHOR DONAHUE, CRP #### [facility] (DEFAULT) [address] [place] [address] 54401 Chloride [Moles/Vol] 106 mmol/L Normal 98-108 [facility] Comment on above: Performed By: #### Boogie MILLER CMPN, CRP #### [facility] (DEFAULT) [address] [place] [address] 94565 CO2 [Moles/Vol] 27 mmol/L Normal 21-31 [facility] Comment on above: Performed By: #### KISHOR DONAHUE, CRP #### [facility] (DEFAULT) [address] [place] [address] 65775 Creatinine [Mass/Vol] 0.53 mg/dL Normal 0.50-1.20 [facility] Comment on above: Performed By: #### KISHOR DONAHUE, CRP #### [facility] (DEFAULT) [address] [place] [address] 81356 eGFR, CKD-EPI, Female > Normal >=60 [facility] Comment on above: Result Comment: Repo rted eGFR is based on the CKD-EPI 2020 equation using creatinine, age, and sex. Performed By: #### KISHOR DONAHUE, CRP #### [facility] (DEFAULT) [address] [place] [address] 19362 Glucose [Mass/Vol] 116 mg/dL High 70-99 [facility] Comment on above: Performed By: #### KISHOR DONAHUE, CRP #### [facility] (DEFAULT) [address] [place] [address] 71523 Osmolality [Osmolality] 295 mosm/kg Normal 278-305 [facility] Comment on above: Performed By: #### KISHOR DONAHUE, CRP #### [facility] (DEFAULT) [address] [place] [address] 79652 Potassium [Moles/Vol] 4.0 mmol/L Normal 3.5-5.0 [facility] Comment on above: Performed By: #### C KB, CMPN, CRP #### [facility] (DEFAULT) [address] [place] [address] 81609 Protein [Mass/Vol] 6.7 g/dL Normal 6.4-8.3 [facility] Comment on above: Performed By: #### C KB, CMPN, CRP #### [facility] (DEFAULT) [address] [place] [address] 69884 Sodium [Moles/Vol] 141 mmol/L Normal 135-145 [facility] Comment on above: Performed By: #### C KB, CMPN, CRP #### [facility] (DEFAULT) [address] [place] [address] 28333 Urea nitrogen [Mass/Vol] 12 mg/dL Normal 7-25 [facility] Comment on above: Performed By: #### C KB, CMPN, CRP #### [facility] (DEFAULT) [address] [place] [address] 72002 Urea nitrogen/Creatinine [Mass ratio] 23 mg/mg Normal [facility] Comment on above: Performed By: #### C KB, CMPN, CRP #### [facility] (DEFAULT) [address] [place] [address] 34988 C REACTIVE PROTEINon 024 CRP [Mass/Vol] 0.91 mg/L Normal <10.00 [facility] Comment on above: Performed By: #### C KB, CMPN, CRP #### [facility] (DEFAULT) [address] [place] [address] 63736 CBC AND ELECTRONIC DIFFon Basophils (Bld) [#/Vol] 0.06 10*3/uL Normal 0.00-0.15 [facility] Comment on above: Performed By: #### C KB, CMPN, CRP #### [facility] (DEFAULT) [address] [place] [address] 31932 Basophils/100 WBC (Bld) 0.8 % Normal [facility] Comment on above: Performed By: #### C KB, CMPN, CRP #### [facility] (DEFAULT) [address] [place] [address] 59593 DIFF STATUS Electronic Differential Normal [facility] Comment on above: Performed By: #### C KB, CMPN, CRP #### [facility] (DEFAULT) [address] [place] [address] 14488 Eosinophils (Bld) [#/Vol] 0.26 10*3/uL Normal 0.00-0.42 [facility] Comment on above: Performed By: #### C KB, CMPN, CRP #### [facility] (DEFAULT) [address] [place] [address] 97560 Eosinophils/100 WBC (Bld) 3.5 % Normal [facility] Comment on above: Performed By: #### C KB, CMPN, CRP #### [facility] (DEFAULT) [address] [place] [address] 75189 Hematocrit (Bld) [Volume fraction] 40.6 % Normal 34.9-44.3 [facility] Comment on above: Performed By: #### C KB, CMPN, CRP #### [facility] (DEFAULT) [address] [place] [address] 82085 Hemoglobin (Bld) [Mass/Vol] 13.5 g/dL Normal 11.4-15.2 [facility] Comment on above: Performed By: #### C KB, CMPN, CRP #### [facility] (DEFAULT) [address] [place] [address] 14242 Immature Grans % 0.3 % Normal [facility] Comment on above: Performed By: #### C KB, CMPN, CRP #### [facility] (DEFAULT) [address] [place] [address] 65280 Immature Grans Absolute < Normal <=0.08 [facility] Comment on above: Performed By: #### C KB, CMPN, CRP #### [facility] (DEFAULT) [address] [place] [address] 22774 Lymphocytes (Bld) [#/Vol] 2.30 10*3/uL Normal 1.16-3.51 [facility] Comment on above: Performed By: #### C KB, CMPN, CRP #### [facility] (DEFAULT) [address] [place] [address] 06168 Lymphocytes/100 WBC (Bld) 31.1 % Normal [facility] Comment on above: Performed By: #### C KB, CMPN, CRP #### [facility] (DEFAULT) [address] [place] [address] 30141 MCV (RBC) [Entitic vol] 94.4 fL Normal 79.6-97.7 [facility] Comment on above: Performed By: #### C KB, CMPN, CRP #### [facility] (DEFAULT) [address] [place] [address] 07682 Mean Cell Hgb 31.4 pg Normal 25.9-33.9 [facility] Comment on above: Performed By: #### C KB, CMPN, CRP #### [facility] (DEFAULT) [address] [place] [address] 52536 Mean Cell Hgb Conc 33.3 g/dL Normal 31.4-35.9 [facility] Comment on above: Performed By: #### C KB, CMPN, CRP #### [facility] (DEFAULT) [address] [place] [address] 36983 Monocytes (Bld) [#/Vol] 0.87 10*3/uL Normal 0.22-0.87 [facility] Comment on above: Performed By: #### C KB, CMPN, CRP #### [facility] (DEFAULT) [address] [place] [address] 73576 Monocytes/100 WBC (Bld) 11.8 % Normal [facility] Comment on above: Performed By: #### C KB, CMPN, CRP #### [facility] (DEFAULT) [address] [place] [address] 41341 Nucleated RBC 0.0 /100 WBC Normal <=0.2 [facility] Comment on above: Performed By: #### C KB, CMPN, CRP #### [facility] (DEFAULT) [address] [place] [address] 74781 Platelet mean volume (Bld) [Entitic vol] 10.4 fL Normal 8.5-12.2 [facility] Comment on above: Performed By: #### C KB, CMPN, CRP #### [facility] (DEFAULT) [address] [place] [address] 41295 Platelets (Bld) [#/Vol] 270 10*3/uL Normal 150-393 [facility] Comment on above: Performed By: #### C KB, CMPN, CRP #### [facility] (DEFAULT) [address] [place] [address] 86396 RBC (Bld) [#/Vol] 4.30 10*6/uL Normal 3.91-5.04 [facility] Comment on above: Performed By: #### C KB, CMPN, CRP #### [facility] (DEFAULT) [address] [place] [address] 28835 RBC Distribution 13.2 % Normal 10.8-14.9 [facility] Comment on above: Performed By: #### C KB, CMPN, CRP #### [facility] (DEFAULT) [address] [place] [address] 47720 Segs + Bands Auto 52.5 % Normal [facility] Comment on above: Performed By: #### C KB, CMPN, CRP #### [facility] (DEFAULT) [address] [place] [address] 78725 Segs + Bands,Absolute Auto 3.89 K/uL Normal 1.64-7.28 [facility] Comment on above: Performed By: #### C KB, CMPN, CRP #### [facility] (DEFAULT) [address] [place] [address] 52036 WBC (Bld) [#/Vol] 7.40 10*3/uL Normal 3.99-11.19 [facility] Comment on above: Performed By: #### C PAUL, CMPN, CRP #### [facility] (DEFAULT) [address] [place] [address] 06865 COMPREHENSIVE METABOLIC PANE Rehan 08-04-2024 Albumin [Mass/Vol] 3.7 g/dL Normal 3.5-5.0 [facility] Comment on above: Performed By: #### C KB, CMPN, CRP #### [facility] (DEFAULT) [address] [place] [address] 26525 ALP [Catalytic activity/Vol] 178 U/L High 32-126 [facility] Comment on above: Performed By: #### C KB, CMPN, CRP #### [facility] (DEFAULT) [address] [place] [address] 95523 ALT [Catalytic activity/Vol] 21 U/L Normal 9-48 [facility] Comment on above: Performed By: #### C KB, CMPN, CRP #### [facility] (DEFAULT) [address] [place] [address] 06701 Anion gap [Moles/Vol] 12 mmol/L Normal 7-17 [facility] Comment on above: Performed By: #### C KB, CMPN, CRP #### [facility] (DEFAULT) [address] [place] [address] 37011 AST [Catalytic activity/Vol] 20 U/L Normal 10-39 [facility] Comment on above: Performed By: #### C KB, CMPN, CRP #### [facility] (DEFAULT) [address] [place] [address] 76060 Bilirubin [Mass/Vol] 0.4 mg/dL Normal <1.5 [facility] Comment on above: Performed By: #### C KB, CMPN, CRP #### [facility] (DEFAULT) [address] [place] [address] 09055 Calcium [Mass/Vol] 9.9 mg/dL Normal 8.6-10.5 [facility] Comment on above: Performed By: #### Boogie MILLER CMPN, CRP #### [facility] (DEFAULT) [address] [place] [address] 58867 Chloride [Moles/Vol] 108 mmol/L Normal 98-108 [facility] Comment on above: Performed By: #### Boogie MILLER CMPN, CRP #### [facility] (DEFAULT) [address] [place] [address] 58928 CO2 [Moles/Vol] 26 mmol/L Normal 21-31 [facility] Comment on above: Performed By: #### KISHOR DONAHUE, CRP #### [facility] (DEFAULT) [address] [place] [address] 54579 Creatinine [Mass/Vol] 0.56 mg/dL Normal 0.50-1.20 [facility] Comment on above: Performed By: #### Boogie MILLER CMPN, CRP #### [facility] (DEFAULT) [address] [place] [address] 50239 eGFR, CKD-EPI, Female > Normal >=60 [facility] Comment on above: Result Comment: Repo rted eGFR is based on the CKD-EPI 2020 equation using creatinine, age, and sex. Performed By: #### Boogie MILLER CMPN, CRP #### [facility] (DEFAULT) [address] [place] [address] 94985 Glucose [Mass/Vol] 107 mg/dL High 70-99 [facility] Comment on above: Performed By: #### Boogie MILLER CMPN, CRP #### [facility] (DEFAULT) [address] [place] [address] 86216 Osmolality [Osmolality] 297 mosm/kg Normal 278-305 [facility] Comment on above: Performed By: #### Boogie MILLER CMPN, CRP #### [facility] (DEFAULT) [address] [place] [address] 10622 Potassium [Moles/Vol] 3.8 mmol/L Normal 3.5-5.0 [facility] Comment on above: Performed By: #### Boogie MILLER, CMPN, CRP #### [facility] (DEFAULT) [address] [place] [address] 33234 Protein [Mass/Vol] 6.4 g/dL Normal 6.4-8.3 [facility] Comment on above: Performed By: #### Boogie MILLER, CMPN, CRP #### [facility] (DEFAULT) [address] [place] [address] 15168 Sodium [Moles/Vol] 142 mmol/L Normal 135-145 [facility] Comment on above: Performed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 L AB980, ESR #### [facility] (DEFAULT) [address] [address]63 Lymphocytes (Bld) [#/Vol] 1.44 10*3/uL Normal 1.16-3.51 [facility] Comment on above: Performed By: #### L AB980, ESR #### [facility] (DEFAULT) [address] [address]77 Lymphocytes/100 WBC (Bld) 23.4 % Normal [facility] Comment on above: Performed By: #### L AB980, ESR #### [facility] (DEFAULT) [address] [address]335 MCV (RBC) [Entitic vol] 96.3 fL Normal 79.6-97.7 [facility] Comment on above: Performed By: #### L AB980, ESR #### [facility] (DEFAULT) [address] [address] Mean Cell Hgb 31.7 pg Normal 25.9-33.9 [facility] Comment on above: Performed By: #### L AB980, ESR #### [facility] (DEFAULT) [address] [place] [address] 63461 Mean Cell Hgb Conc 32.9 g/dL Normal 31.4-35.9 [facility] Comment on above: Performed By: #### L AB980, ESR #### [facility] (DEFAULT) [address] [place] [address] 44503 Monocytes (Bld) [#/Vol] 0.77 10*3/uL Normal 0.22-0.87 [facility] Comment on above: Performed By: #### L AB980, ESR #### [facility] (DEFAULT) [address] [place] [address] 99059 Monocytes/100 WBC (Bld) 12.5 % Normal [facility] Comment on above: Performed By: #### L AB980, ESR #### [facility] (DEFAULT) [address] [place] [address] 13937 Nucleated RBC 0.0 /100 WBC Normal <=0.2 [facility] Comment on above: Performed By: #### L AB980, ESR #### [facility] (DEFAULT) [address] [place] [address] 01846 Platelet mean volume (Bld) [Entitic vol] 11.0 fL Normal 8.5-12.2 [facility] Comment on above: Performed By: #### L AB980, ESR #### [facility] (DEFAULT) [address] [place] [address] 82197 Platelets (Bld) [#/Vol] 264 10*3/uL Normal 150-393 [facility] Comment on above: Performed By: #### L AB980, ESR #### [facility] (DEFAULT) [address] [place] [address] 86326 RBC (Bld) [#/Vol] 4.38 10*6/uL Normal 3.91-5.04 [facility] Comment on above: Performed By: #### L AB980, ESR #### [facility] (DEFAULT) [address] [place] [address] 28337 RBC Distribution 13.2 % Normal 10.8-14.9 [facility] Comment on above: Performed By: #### L AB980, ESR #### [facility] [facility] (DEFAULT) [address] [address] Segs + Bands Auto 59.8 % Normal [facility] Comment on above: Performed By: #### L [id number], ESR #### [facility] (DEFAULT) [address] [address] Segs + Bands,Absolute Auto 3.68 K/uL Normal 1.64-7.28 [facility] Comment on above: Performed By: #### L [id number], ESR #### [facility] (DEFAULT) [address] [place] [address] WBC (Bld) [#/Vol] 6.15 10*3/uL Normal 3.99-11.19 [facility] Comment on above: Performed By: #### L [id number], ESR #### [facility] (DEFAULT) [address] [place] [address] COMPREHENSIVE METABOLIC PANE Rehan 06-30-2023 Albumin [Mass/Vol] 3.8 g/dL Normal 3.5-5.0 [facility] Comment on above: Performed By: #### Boogie 7ED #### [facility] (DEFAULT) [address] [place] [address]21 ALP [Catalytic activity/Vol] 141 U/L High 32-126 [facility] Comment on above: Performed By: #### Boogie 7ED #### [facility] (DEFAULT) [address] [address] ALT [Catalytic activity/Vol] 30 U/L Normal 9-48 [facility] Comment on above: Performed By: #### Boogie 7ED #### [facility] (DEFAULT) [address] [place] [address]89 Anion gap [Moles/Vol] 12 mmol/L Normal 7-17 [facility] Comment on above: Performed By: #### C 7ED #### [facility] (DEFAULT) [address] [place] [address] 32314 AST [Catalytic activity/Vol] 24 U/L Normal 10-39 [facility] Comment on above: Performed By: #### C 7ED #### [facility] (DEFAULT) [address] [place] [address] 14436 Bilirubin [Mass/Vol] 0.5 mg/dL Normal <1.5 [facility] Comment on above: Performed By: #### C 7ED #### [facility] (DEFAULT) [address] [place] [address]804 Calcium [Mass/Vol] 9.5 mg/dL Normal 8.6-10.5 [facility] Comment on above: Performed By: #### C 7ED #### [facility] (DEFAULT) [address] [place] [address] 44441 Chloride [Moles/Vol] 105 mmol/L Normal 98-108 [facility] Comment on above: Performed By: #### C 7ED #### [facility] (DEFAULT) [address] [place] [address] 76166 CO2 [Moles/Vol] 29 mmol/L Normal 21-31 [facility] Comment on above: Performed By: #### C 7ED #### [facility] (DEFAULT) [address] [place] [address] 88005 Creatinine [Mass/Vol] 0.59 mg/dL Normal 0.50-1.20 [facility] Comment on above: Performed By: #### C 7ED #### [facility] (DEFAULT) [address] [place] [address] 56206 eGFR, CKD-EPI, Female > Normal >=60 [facility] Comment on above: Result Comment: Repo rted eGFR is based on the CKD-EPI 2020 equation using creatinine, age, and sex. Performed By: #### C 7ED #### [facility] (DEFAULT) [address] [place] [address] 41834 Glucose [Mass/Vol] 148 mg/dL High 70-99 [facility] Comment on above: Performed By: #### Boogie 7ED #### [facility] (DEFAULT) [address] [place] [address]153 Osmolality [Osmolality] 300 mosm/kg Normal 278-305 [facility] Comment on above: Performed By: #### Boogie MccrackenD #### [facility] (DEFAULT) [address] [place] [address] 08222 Potassium [Moles/Vol] 4.1 mmol/L Normal 3.5-5.0 [facility] Comment on above: Performed By: #### Boogie MccrackenD #### [facility] (DEFAULT) [address] [place] [address]2729 Protein [Mass/Vol] 6.6 g/dL Normal 6.4-8.3 [facility] Comment on above: Performed By: #### Boogie MccrackenD #### [facility] (DEFAULT) [address] [place] [address] 85208 Sodium [Moles/Vol] 142 mmol/L Normal 135-145 [facility] Comment on above: Performed By: #### Boogie MccrackenD #### [facility] (DEFAULT) [address] [place] [address] 42327 Urea nitrogen [Mass/Vol] 14 mg/dL Normal 7-25 [facility] Comment on above: Performed By: #### Boogie MccrackenD #### [facility] (DEFAULT) [address] [place] [address] 64523 Urea nitrogen/Creatinine [Mass ratio] 24 mg/mg Normal [facility] Comment on above: Performed By: #### Boogie MccrackenD #### [facility] (DEFAULT) [address] [place] [address] 86397 CBC WITH AUTO DIFFERENTIALon 05-03-2024 AUTO NRBC 0.0 % Normal [facility] Comment on above: Performed By: #### L [id number] #### [facility] [address] [place] [address] Jurgen Osullivan M.D. [id number] AUTO NRBC ABS COUNT 0.00 K/mcL Normal 0.00-0.00 [facility] Comment on above: Performed By: #### Deirdre [id number] #### [facility] [address] [place] [address] Jurgen Osullivan M.D. [id number] BASOPHILS ABSOLUTE COUNT 0.06 K/mcL Normal 0.00-0.30 [facility] Comment on above: Performed By: #### Deirdre [id number] #### [facility] [address] [place] [address] Jurgen Osullivan M.D. [id number] Basophils/100 WBC (Bld) 1.0 % Normal [facility] Comment on above: Performed By: #### Deirdre [id number] #### [facility] [address] [place] [address] Jurgen Osullivan M.D. [id number] Eosinophils (Bld) [#/Vol] 0.27 10*3/uL Normal 0.00-0.50 [facility] Comment on above: Performed By: #### Deirdre [id number] #### [facility] [address] [place] [address] Jurgen Osullivan M.D. [id number] Eosinophils/100 WBC (Bld) 4.3 % Normal [facility] Comment on above: Performed By: #### Deirdre [id number] #### [facility] [address] [place] [address] Jurgen Osullivan M.D. [id number] Erythrocyte distribution width (RBC) [Ratio] 14.9 % High 11.6-14.8 [facility] Comment on above: Performed By: #### Deirdre [id number] #### [facility] [address] [place], [place] [address] Jurgen Osullivan M.D. [id number] Hematocrit (Bld) [Volume fraction] 44.7 % Normal 36.0-46.0 [facility] Comment on above: Performed By: #### L [id number] #### [facility] [address] [place] [address] Jurgen Osullivan M.D. [id number] Hemoglobin (Bld) [Mass/Vol] 14.2 g/dL Normal 12.0-16.0 [facility] Comment on above: Performed By: #### L [id number] #### [facility] [address] [place] [address] Jurgen Osullivan M.D. [id number] IG ABSOLUTE 0.07 K/mcL Normal 0.00-0.30 [facility] Comment on above: Performed By: #### L [id number] #### [facility] [address] [place] [address] Jurgen Osullivan M.D. [id number] IG PERCENT 1.10 % Normal [facility] Comment on above: Result Comment: The IG parameter is the percentage of metamyelocytes, myelocytes and promyelocytes. An immature granulocyte count (IG) of 1% or more suggests the possibility of infection, an IG count of 3% is very likely related to an infection. Performed By: #### L [id number] #### [facility] [address] [place] [address] Jurgen Osullivan M.D. [id number] Lymphocytes (Bld) [#/Vol] 1.48 10*3/uL Normal 0.90-4.00 [facility] Comment on above: Performed By: #### L [id number] #### [facility] [address] [place] [address] Jurgen Osullivan M.D. [id number] Lymphocytes/100 WBC (Bld) 23.5 % Normal [facility] Comment on above: Performed By: #### L [id number] #### [facility] [address] [place] [address] Jurgen Osullivan M.D. [id number] MCH (RBC) [Entitic mass] 32.1 pg Normal 26.0-34.0 [facility] Comment on above: Performed By: #### Deirdre [id number] #### [facility] [address] [place] [address] Jurgen Osullivan M.D. [id number] MCV (RBC) [Entitic vol] 101.1 fL High 80.0-100.0 [facility] Comment on above: Performed By: #### Deirdre [id number] #### [facility] [address] [place] [address] Jurgen Osullivan M.D. [id number] MEAN CORPUSCULAR HEMOGLOBIN CONC 31.8 g/dL Normal 31.0-37.0 [facility] Comment on above: Performed By: #### Deirdre [id number] #### [facility] [address] [place] [address] Jurgen Osullivan M.D. [id number] Monocytes (Bld) [#/Vol] 0.93 10*3/uL High 0.30-0.90 [facility] Comment on above: Performed By: #### Deirdre [id number] #### [facility] [address] [place] [address] Jurgen Osullivan M.D. [id number] Monocytes/100 WBC (Bld) 14.7 % Normal [facility] Comment on above: Performed By: #### L [id number] #### [facility] [address] [place] [address] Jurgen Osullivan M.D. [id number] NEUTROPHILS ABSOLUTE COUNT 3.50 K/mcL Normal 1.70-7.00 [facility] Comment on above: Performed By: #### L [id number] #### [facility] [address] [place] [address] Jurgen Osullivan M.D. [id number] Neutrophils/100 WBC (Bld) 55.4 % Normal [facility] Comment on above: Performed By: #### Deirdre [id number] #### [facility] [address] [place] [address] Jurgen Osullivan M.D. [id number] Platelet mean volume (Bld) [Entitic vol] 10.8 fL Normal 9.4-12.4 [facility] Comment on above: Performed By: #### Deirdre [id number] #### [facility] [address] [place] [address] Jurgen Osullivan M.D. [id number] Platelets (Bld) [#/Vol] 246 10*3/uL Normal 150-400 [facility] Comment on above: Performed By: #### L [id number] #### [facility] [address] [place], [place] [address] Jurgen Osullivan M.D. [id number] RBC (Bld) [#/Vol] 4.42 10*6/uL Normal 4.00-5.20 [facility] Comment on above: Performed By: #### L [id number] #### [facility] [address] [place], [place] [address] Jurgen Osullivan M.D. [id number] WBC (Bld) [#/Vol] 6.31 10*3/uL Normal 4.50-11.00 [facility] Comment on above: Performed By: #### L [id number] #### [facility] [address] [place], [place] [address] Jurgen Osullivan M.D. [id number] COMPREHENSIVE METABOLIC PANE [facility] 05-03-2024 Albumin [Mass/Vol] 4.0 g/dL Normal 3.2-5.2 [facility] Comment on above: Order Comment: [facility] has implemented the eGFR calculation approach that does not have a coefficient for race that conforms to the NKF-ASN Task Force Recommendations. Performed By: #### [id number] #### [facility] [address] [place], [place] [address] Jurgen Osullivan M.D. [id number] ALP [Catalytic activity/Vol] 193 U/L High 40-150 [facility] Comment on above: Order Comment: [facility] has implemented the eGFR calculation approach that does not have a coefficient for race that conforms to the NKF-ASN Task Force Recommendations. Performed By: #### 4 [id number] #### [facility] [address] [place], [place] [address] Jurgen Osullivan M.D. [id number] ALT [Catalytic activity/Vol] 58 U/L High 0-35 U/L [facility] Comment on above: Order Comment: [facility] has implemented the eGFR calculation approach that does not have a coefficient for race that conforms to the NKF-ASN Task Force Recommendations. Performed By: #### 4 [id number] #### [facility] [address] [place], [place] [address] Jurgen Osullivan M.D. [id number] Anion gap [Moles/Vol] 18 mmol/L Normal 10-20 [facility] Comment on above: Order Comment: [facility] has implemented the eGFR calculation approach that does not have a coefficient for race that conforms to the NKF-ASN Task Force Recommendations. Performed By: #### 4 [id number] #### [facility] [address] [place] [address] Jurgen Osullivan M.D. [id number] AST [Catalytic activity/Vol] 42 U/L High 0-35 U/L [facility] Comment on above: Order Comment: [facility] has implemented the eGFR calculation approach that does not have a coefficient for race that conforms to the NKF-ASN Task Force Recommendations. Performed By: #### 4 [id number] #### [facility] [address] [place] [address] Jurgen Osullivan M.D. [id number] Bilirubin [Mass/Vol] 0.7 mg/dL Normal 0.0-1.3 [facility] Comment on above: Order Comment: [facility] has implemented the eGFR calculation approach that does not have a coefficient for race that conforms to the NKF-ASN Task Force Recommendations. Performed By: #### 4 [id number] #### [facility] [address] [place] [address] Jurgen Osullivan M.D. [id number] Calcium [Mass/Vol] 9.3 mg/dL Normal 8.4-10.2 [facility] Comment on above: Order Comment: [facility] has implemented the eGFR calculation approach that does not have a coefficient for race that conforms to the NKF-ASN Task Force Recommendations. Performed By: #### 4 [id number] #### [facility] [address] [place] [address] 618[address] Jurgen Osullivan M.D. [id number] Chloride [Moles/Vol] 100 mmol/L Normal 98-108 [facility] Comment on above: Order Comment: [facility] has implemented the eGFR calculation approach that does not have a coefficient for race that conforms to the NKF-ASN Task Force Recommendations. Performed By: #### 4 [id number] #### [facility] [address] [place] [address] Jurgen Osullivan M.D. [id number] Creatinine [Mass/Vol] 0.48 mg/dL Low 0.60-1.10 [facility] Comment on above: Order Comment: [facility] has implemented the eGFR calculation approach that does not have a coefficient for race that conforms to the NKF-ASN Task Force Recommendations. Performed By: #### 4 [id number] #### [facility] [address] [place] [address] 75329 Jurgen Osullivan M.D. [id number] EGFR 102 mL/min/1.73 m2 Normal >=60 [facility] Comment on above: Order Comment: [facility] has implemented the eGFR calculation approach that does not have a coefficient for race that conforms to the NKF-ASN Task Force Recommendations. Result Comment: Aura mated GFR was calculated using the 2020 CKD-EPI creatinine equation. Performed By: #### 4 [id number] #### [facility] [address] [place] [address] 244[address] Jurgen Osullivan M.D. [id number] Glucose [Mass/Vol] 98 mg/dL Normal 65-99 [facility] Comment on above: Order Comment: [facility] has implemented the eGFR calculation approach that does not have a coefficient for race that conforms to the NKF-ASN Task Force Recommendations. Performed By: #### 4 [id number] #### [facility] [address] [place] [address] 60858 Jurgen Osullivan M.D. [id number] HCO3 (Bld) [Moles/Vol] 25 mmol/L Normal 21-32 [facility] Comment on above: Order Comment: [facility] has implemented the eGFR calculation approach that does not have a coefficient for race that conforms to the NKF-ASN Task Force Recommendations. Performed By: #### 4 [id number] #### [facility] [address] [place] [address] 38[address] Jurgen Osullivan M.D. [id number] Potassium [Moles/Vol] 3.8 mmol/L Normal 3.5-5.1 [facility] Comment on above: Order Comment: [facility] has implemented the eGFR calculation approach that does not have a coefficient for race that conforms to the NKF-ASN Task Force Recommendations. Performed By: #### 4 [id number] #### [facility] [address] [place] [address] Jurgen Osullivan M.D. [id number] Protein [Mass/Vol] 6.4 g/dL Normal 6.0-8.0 [facility] Comment on above: Order Comment: [facility] has implemented the eGFR calculation approach that does not have a coefficient for race that conforms to the NKF-ASN Task Force Recommendations. Performed By: #### 4 [id number] #### [facility] [address] [place] [address] Jurgen Osullivan M.D. [id number] Sodium [Moles/Vol] 139 mmol/L Normal 135-145 [facility] Comment on above: Order Comment: [facility] has implemented the eGFR calculation approach that does not have a coefficient for race that conforms to the NKF-ASN Task Force Recommendations. Performed By: #### 4 [id number] #### [facility] [address] [place] [address] Jurgen Osullivan M.D. [id number] Urea nitrogen [Mass/Vol] 13 mg/dL Normal 8-25 [facility] Comment on above: Order Comment: [facility] has implemented the eGFR calculation approach that does not have a coefficient for race that conforms to the NKF-ASN Task Force Recommendations. Performed By: #### 4 [id number] #### [facility] [address] [place] [address]86[address] Jurgen Osullivan M.D. [id number] Urea nitrogen/Creatinine [Mass ratio] 27.1 mg/mg High 10.0-20.0 [facility] Comment on above: Order Comment: [facility] has implemented the eGFR calculation approach that does not have a coefficient for race that conforms to the NKF-ASN Task Force Recommendations. Performed By: #### 4 [id number] #### [facility] [address] [place] [address] Jurgen Osullivan M.D. [id number] ED Prov Noteon 04-30-2024 ED Prov Note EMERENCY DEPARTMENT ATTENDING PHYSICIAN NOTE [facility] EMERGENCY DEPARTMENT Patient Name: Goergia Ochoa Age: 68 y.o. : 1955 ED Visit Date: 04/30/24 Chief Complaint Patient presents with Medication Reaction HPI / ROS 68-year-old female with a history of Lyme's disease, beads helicis, Bartonella who is currently under the treatment of an infectious disease team who is providing her IV Rocephin via peripheral PICC line presents to the ED after developing back pain 15 minutes after starting her infusion. She states she has been on this for quite some time, has never had a reaction like this before, but she connected herself to the infusion which last about half an hour, 15 minutes then she developed pain in her right low back that radiated upper back that lasted about an hour and is now gone. She denies any anterior chest pain, shortness of breath, fevers or chills. Denies abdominal pain. Denies dysuria, hematuria, urgency or frequency. She states she has no pain at this time except for a little achiness in her right low back. MDM / ED Course On exam, patient is resting comfortably no acute distress, nontoxic afebrile. Her PICC line appears in place without any dredging redness warmth of her in her right arm. Nurses were able to draw and flush without difficulty. Chest x-ray confirms placement in appropriate position. Patient does have some tenderness in her right low back, she states that is where it originated and radiated up. She is not having any dysuria, hematuria, urgency or frequency. She has been on these antibiotics for quite some time, doubt that this is a transfusion related reaction. She is not having any rash or redness or swelling to suggest allergic reaction. She is well-appearing otherwise. She was willing to try Lidoderm patch in her low back, but I think otherwise her PICC line is in place, does not have any evidence of PICC line failure and has benign exam otherwise, suspect musculoskeletal based on her exam MDM Data: I saw and evaluated the patient. I reviewed the chief complaint, triage note, past medical/surgical, family, and social history. Shared decision making utilized. Social determinants of health impacted treatment/dispositi on. Labs Reviewed - No data to display XR Chest 1 View Final Result 1. Right-sided PICC in satisfactory position. 2. No acute cardiopulmonary process. Workstation ID: [id number] Clinical Impression: 1. Acute back pain, unspecified back location, unspecified back pain laterality ED Disposition ED Disposition Discharge Condition Stable Comment Georgia Ochoa discharged to home/self care in stable condition. Patient's PCP: Francine Alvarez CNP Follow-up Information 1. Francine Alvarez CNP. Specialty: Nurse Practitioner [address] [facility] [address] [place] [address] Contact information for after-discharge care Follow-up information has not been specified. Review of Systems Review of Systems - Refer to HPI/ROS section above. - All systems reviewed and negative unless otherwise noted above. Physical Exam Patient Vitals for the past 24 hrs: BP Temp Temp src Pulse Resp SpO2 Height Weight 04/30/24 1656 132/83 -- -- 95 18 97 % -- -- 04/30/24 1332 130/83 97.5 degrees F (36.4 degrees C) Oral (!) 109 (!) 20 93 % 5' 6 84 kg (185 lb 3 oz) Physical Exam Vitals and nursing note reviewed. Constitutional: Appearance: She is well-developed. HENT: Head: Normocephalic and atraumatic. Eyes: Pupils: Pupils are equal, round, and reactive to light. Cardiovascular: Rate and Rhythm: Normal rate and regular rhythm. Heart sounds: Normal heart sounds. Musculoskeletal: General: Normal range of motion. Arms: Cervical back: Normal range of motion and neck supple. Comments: PICC line appears in place without any dredging redness warmth of her in her right arm. Pulmonary: Effort: Pulmonary effort is normal. No respiratory distress. Breath sounds: Normal breath sounds. Abdominal: Palpations: Abdomen is soft. Tenderness: There is no abdominal tenderness. Skin: General: Skin is warm and dry. Findings: No rash. Neurological: Mental Status: She is alert and oriented to person, place, and time. - Refer to MDM section above for any additional physical exam data. Past Medical, Surgical, Family, and Social History: Past Medical History: Diagnosis Date Asthma Babesiosis Depression Fuchs endothelial corneal dystrophy type 1 Gall stones Heart valve disease mvp Infection, bartonella Lyme disease Nephrolithiasis Past Surgical History: Procedure Laterality Date CATARACT IOL PHACO CLEAR CORNEA Left 09/11/2020 Procedure: LEFT EYE CATARACT EXTRACTION WITH LENS IMPLANT WITH LRI; Surgeon: Kaylen Womack MD; Location: [facility] Main OR; Service: Ophthalmology CATARACT IOL PHACO CLEAR CORNEA Right 09/25/2020 Procedure: RIGHT EYE CATARAC (more content not included)... Normal [facility] XR CHEST PA/APon 04-30-2024 XR CHEST PA/AP EXAMINATION: XR CHEST PA/AP 04/30/2024 2:05 pm HISTORY: ORDERING SYSTEM PROVIDED HISTORY: PICC line placement, TECHNOLOGIST PROVIDED HISTORY: Illness/Other Reason for exam: PICC line placement, Medication Reaction Cancer History: no Surgery, RadiationHistory: bilat renal stones Encounter Type: Initial Additional signs and symptoms: Pt reports while giving herself her rocephin infusion via picc line she began having pain from her back and up and over her shoulders that resolved after about one hour. Pt is concerned this could be an issue with her PICC line. Pt has been on rocephin for a while without issue. PICC line fast flush without issue with + blood return. ORDERING SYSTEM PROVIDED DIAGNOSIS CODES: COMPARISON: Chest radiograph 11/02/2023. FINDINGS: Right-sided PICC tip in the lower SVC. Normal cardiomediastinal contours. Normal pulmonary vasculature. Stable mild atelectasis in the left lung base. No acute infiltrate. No pleural effusion or pneumothorax. No acute osseous abnormality. IMPRESSION: 1. Right-sided PICC in satisfactory position. 2. No acute cardiopulmonary process. Workstation ID: [id number] Dictated by: JOSE ELIAS AGUILAR on Sat Apr 30, 2024 2:39:41 PM EDT Transcribed by: JOSE ELIAS AGUILAR on Sat Apr 30, 2024 2:39:41 PM EDT Finalized by: JOSE ELIAS AGUILAR on [facility] Apr 30, 2024 2:39:41 PM EDT Normal [facility] Comment on above: Order Comment: Injur y/Trauma or Illness?:Illness/Other How long have you had these symptoms (acute/chronic)?:Chronic Reason for exam?:PICC line placement, Medication Reaction History of cancer?:no Surgeries, chemotherapy, or radiation?:bilat renal stones Type of Exam?:Initial Additional signs and symptoms?:Pt reports while giving herself her rocephin infusion via picc line she began having pain from her back and up and over her shoulders that resolved after about one hour. Pt is concerned this could be an issue with her PICC line. Pt has been on rocephin for a while without issue. PICC line fast flush without issue with + blood return. CBC WITH AUTO DIFFERENTIALon 04-26-2024 AUTO NRBC 0.0 % Normal [facility] Comment on above: Performed By: #### L [id number] #### [facility] [address] [place] [address] Jurgen Osullivan M.D. [id number] AUTO NRBC ABS COUNT 0.00 K/mcL Normal 0.00-0.00 [facility] Comment on above: Performed By: #### L [id number] #### [facility] [address] [place] [address] Jurgen Osullivan M.D. [id number] BASOPHILS ABSOLUTE COUNT 0.05 K/mcL Normal 0.00-0.30 [facility] Comment on above: Performed By: #### L [id number] #### [facility] [address] [place] [address] Jurgen Osullivan M.D. [id number] Basophils/100 WBC (Bld) 0.8 % Normal [facility] Comment on above: Performed By: #### L [id number] #### [facility] [address] [place] [address] Jurgen Osullivan M.D. [id number] Eosinophils (Bld) [#/Vol] 0.19 10*3/uL Normal 0.00-0.50 [facility] Comment on above: Performed By: #### L [id number] #### [facility] [address] [place] [address] Jurgen Osullivan M.D. [id number] Eosinophils/100 WBC (Bld) 3.0 % Normal [facility] Comment on above: Performed By: #### L [id number] #### [facility] [address] [place] [address] Jurgen Osullivan M.D. [id number] Erythrocyte distribution width (RBC) [Ratio] 14.7 % Normal 11.6-14.8 [facility] Comment on above: Performed By: #### L [id number] #### [facility] [address] [place] [address] Jurgen Osullivan M.D. [id number] Hematocrit (Bld) [Volume fraction] 44.9 % Normal 36.0-46.0 [facility] Comment on above: Performed By: #### L [id number] #### [facility] [address] [place] [address] Jurgen Osullivan M.D. [id number] Hemoglobin (Bld) [Mass/Vol] 14.5 g/dL Normal 12.0-16.0 [facility] Comment on above: Performed By: #### L [id number] #### [facility] [address] [place] [address] Jurgen Osullivan M.D. [id number] IG ABSOLUTE 0.02 K/mcL Normal 0.00-0.30 [facility] Comment on above: Performed By: #### L [id number] #### [facility] [address] [place] [address] Jurgen Osullivan M.D. [id number] IG PERCENT 0.30 % Normal [facility] Comment on above: Result Comment: The IG parameter is the percentage of metamyelocytes, myelocytes and promyelocytes. An immature granulocyte count (IG) of 1% or more suggests the possibility of infection, an IG count of 3% is very likely related to an infection. Performed By: #### L [id number] #### [facility] [address] [place] [address] Jurgen Osullivan M.D. [id number] Lymphocytes (Bld) [#/Vol] 1.92 10*3/uL Normal 0.90-4.00 [facility] Comment on above: Performed By: #### Deirdre [id number] #### [facility] [address] [place] [address] Jurgen Osullivan M.D. [id number] Lymphocytes/100 WBC (Bld) 30.3 % Normal [facility] Comment on above: Performed By: #### Deirdre [id number] #### [facility] [address] [place] [address] Jurgen Osullivan M.D. [id number] MCH (RBC) [Entitic mass] 32.2 pg Normal 26.0-34.0 [facility] Comment on above: Performed By: #### Deirdre [id number] #### [facility] [address] [place] [address] Jurgen Osullivan M.D. [id number] MCV (RBC) [Entitic vol] 99.6 fL Normal 80.0-100.0 [facility] Comment on above: Performed By: #### Deirdre [id number] #### [facility] [address] [place] [address] Jurgen Osullivan M.D. [id number] MEAN CORPUSCULAR HEMOGLOBIN CONC 32.3 g/dL Normal 31.0-37.0 [facility] Comment on above: Performed By: #### Deirdre [id number] #### [facility] [address] [place] [address] Jurgen Osullivan M.D. [id number] Monocytes (Bld) [#/Vol] 0.67 10*3/uL Normal 0.30-0.90 [facility] Comment on above: Performed By: #### Deirdre [id number] #### [facility] [address] [place] [address] Jurgen Osullivan M.D. [id number] Monocytes/100 WBC (Bld) 10.6 % Normal [facility] Comment on above: Performed By: #### L [id number] #### [facility] [address] [place], [place] [address] Jurgen Osullivan M.D. [id number] NEUTROPHILS ABSOLUTE COUNT 3.49 K/mcL Normal 1.70-7.00 [facility] Comment on above: Performed By: #### L [id number] #### [facility] [address] [place] [address] Jurgen Osullivan M.D. [id number] Neutrophils/100 WBC (Bld) 55.0 % Normal [facility] Comment on above: Performed By: #### L [id number] #### [facility] [address] [place] [address] Jurgen Osullivan M.D. [id number] Platelet mean volume (Bld) [Entitic vol] 11.3 fL Normal 9.4-12.4 [facility] Comment on above: Performed By: #### L [id number] #### [facility] [address] [place], [place] [address] Jurgen Osullivan M.D. [id number] Platelets (Bld) [#/Vol] 237 10*3/uL Normal 150-400 [facility] Comment on above: Performed By: #### L [id number] #### [facility] [address] [place], [place] [address] Jurgen Osullivan M.D. [id number] RBC (Bld) [#/Vol] 4.51 10*6/uL Normal 4.00-5.20 [facility] Comment on above: Performed By: #### L [id number] #### [facility] [address] [place], [place] [address] Jurgen Osullivan M.D. [id number] WBC (Bld) [#/Vol] 6.34 10*3/uL Normal 4.50-11.00 [facility] Comment on above: Performed By: #### L [id number] #### [facility] [address] [place] [address] Jurgen Osullivan M.D. [id number] COMPREHENSIVE METABOLIC PANE Rehan 04-26-2024 Albumin [Mass/Vol] 3.9 g/dL Normal 3.2-5.2 [facility] Comment on above: Order Comment: [facility] has implemented the eGFR calculation approach that does not have a coefficient for race that conforms to the NKF-ASN Task Force Recommendations. Performed By: #### [id number] #### [facility] [address] [place] [address] Jurgen Osullivan M.D. [id number] ALP [Catalytic activity/Vol] 192 U/L High 40-150 [facility] Comment on above: Order Comment: [facility] has implemented the eGFR calculation approach that does not have a coefficient for race that conforms to the NKF-ASN Task Force Recommendations. Performed By: #### 4 [id number] #### [facility] [address] [place] [address] Jurgen Osullivan M.D. [id number] ALT [Catalytic activity/Vol] 41 U/L High 0-35 U/L [facility] Comment on above: Order Comment: [facility] has implemented the eGFR calculation approach that does not have a coefficient for race that conforms to the NKF-ASN Task Force Recommendations. Performed By: #### 4 [id number] #### [facility] [address] [place] [address] Jurgen Osullivan M.D. [id number] Anion gap [Moles/Vol] 21 mmol/L High 10-20 [facility] Comment on above: Order Comment: [facility] has implemented the eGFR calculation approach that does not have a coefficient for race that conforms to the NKF-ASN Task Force Recommendations. Performed By: #### 4 [id number] #### [facility] [address] [place] [address] Jurgen Osullivan M.D. [id number] AST [Catalytic activity/Vol] 31 U/L Normal 0-35 U/L [facility] Comment on above: Order Comment: [facility] has implemented the eGFR calculation approach that does not have a coefficient for race that conforms to the NKF-ASN Task Force Recommendations. Performed By: #### 4 [id number] #### [facility] [address] [place], [place] [address] Jurgen Osullivan M.D. [id number] Bilirubin [Mass/Vol] 0.4 mg/dL Normal 0.0-1.3 [facility] Comment on above: Order Comment: [facility] has implemented the eGFR calculation approach that does not have a coefficient for race that conforms to the NKF-ASN Task Force Recommendations. Performed By: #### 4 [id number] #### [facility] [address] [place], [place] [address] Jurgen Osullivan M.D. [id number] Calcium [Mass/Vol] 9.3 mg/dL Normal 8.4-10.2 [facility] Comment on above: Order Comment: [facility] has implemented the eGFR calculation approach that does not have a coefficient for race that conforms to the NKF-ASN Task Force Recommendations. Performed By: #### 4 [id number] #### [facility] [address] [place], [place] [address] Jurgen Osullivan M.D. [id number] Chloride [Moles/Vol] 104 mmol/L Normal 98-108 [facility] Comment on above: Order Comment: [facility] has implemented the eGFR calculation approach that does not have a coefficient for race that conforms to the NKF-ASN Task Force Recommendations. Performed By: #### 4 [id number] #### [facility] [address] [place], [place] [address] Jurgen Osullivan M.D. [id number] Creatinine [Mass/Vol] 0.48 mg/dL Low 0.60-1.10 [facility] Comment on above: Order Comment: [facility] has implemented the eGFR calculation approach that does not have a coefficient for race that conforms to the NKF-ASN Task Force Recommendations. Performed By: #### 4 [id number] #### [facility] [address] [place] [address] Jurgen Osullivan M.D. [id number] EGFR 102 mL/min/1.73 m2 Normal >=60 [facility] Comment on above: Order Comment: [facility] has implemented the eGFR calculation approach that does not have a coefficient for race that conforms to the NKF-ASN Task Force Recommendations. Result Comment: Aura mated GFR was calculated using the 2020 CKD-EPI creatinine equation. Performed By: #### 4 [id number] #### [facility] [address] [place], [place] [address] Jurgen Osullivan M.D. [id number] Glucose [Mass/Vol] 85 mg/dL Normal 65-99 [facility] Comment on above: Order Comment: [facility] has implemented the eGFR calculation approach that does not have a coefficient for race that conforms to the NKF-ASN Task Force Recommendations. Performed By: #### 4 [id number] #### [facility] [address] [place] [address] Jurgen Osullivan M.D. [id number] HCO3 (Bld) [Moles/Vol] 23 mmol/L Normal 21-32 [facility] Comment on above: Order Comment: [facility] has implemented the eGFR calculation approach that does not have a coefficient for race that conforms to the NKF-ASN Task Force Recommendations. Performed By: #### 4 [id number] #### [facility] [address] [place] [address] Jurgen Osullivan M.D. [id number] Potassium [Moles/Vol] 3.9 mmol/L Normal 3.5-5.1 [facility] Comment on above: Order Comment: [facility] has implemented the eGFR calculation approach that does not have a coefficient for race that conforms to the NKF-ASN Task Force Recommendations. Performed By: #### 4 [id number] #### [facility] [address] [place] [address] Jurgen Osullivan M.D. [id number] Protein [Mass/Vol] 6.3 g/dL Normal 6.0-8.0 [facility] Comment on above: Order Comment: [facility] has implemented the eGFR calculation approach that does not have a coefficient for race that conforms to the NKF-ASN Task Force Recommendations. Performed By: #### 4 [id number] #### [facility] [address] [place] [address] Jurgen Osullivan M.D. [id number] Sodium [Moles/Vol] 144 mmol/L Normal 135-145 [facility] Comment on above: Order Comment: [facility] has implemented the eGFR calculation approach that does not have a coefficient for race that conforms to the NKF-ASN Task Force Recommendations. Performed By: #### 4 [id number] #### [facility] [address] [place] [address] Jurgen Osullivan M.D. [id number] Urea nitrogen [Mass/Vol] 17 mg/dL Normal 8-25 [facility] Comment on above: Order Comment: [facility] has implemented the eGFR calculation approach that does not have a coefficient for race that conforms to the NKF-ASN Task Force Recommendations. Performed By: #### 4 [id number] #### [facility] [address] [place] [address] Jurgen Osullivan M.D. [id number] Urea nitrogen/Creatinine [Mass ratio] 35.4 mg/mg High 10.0-20.0 [facility] Comment on above: Order Comment: [facility] has implemented the eGFR calculation approach that does not have a coefficient for race that conforms to the NKF-ASN Task Force Recommendations. Performed By: #### 4 [id number] #### [facility] [address] [place] [address] Jurgen Osullivan M.D. [id number] CBC WITH AUTO DIFFERENTIALon 04-18-2024 AUTO NRBC 0.0 % Normal [facility] Comment on above: Performed By: #### L [id number] #### [facility] [address] [place] [address] Jurgen Osullivan M.D. [id number] AUTO NRBC ABS COUNT 0.00 K/mcL Normal 0.00-0.00 [facility] Comment on above: Performed By: #### L [id number] #### [facility] [address] [place] [address] Jurgen Osullivan M.D. [id number] BASOPHILS ABSOLUTE COUNT 0.04 K/mcL Normal 0.00-0.30 [facility] Comment on above: Performed By: #### L [id number] #### [facility] [address] [place], [place] [address] Jurgen Osullivan M.D. [id number] Basophils/100 WBC (Bld) 0.7 % Normal [facility] Comment on above: Performed By: #### L [id number] #### [facility] [address] [place] [address] Jurgen Osullvian M.D. [id number] Eosinophils (Bld) [#/Vol] 0.15 10*3/uL Normal 0.00-0.50 [facility] Comment on above: Performed By: #### L [id number] #### [facility] [address] [place] [address] Jurgen Osullivan M.D. [id number] Eosinophils/100 WBC (Bld) 2.8 % Normal [facility] Comment on above: Performed By: #### L [id number] #### [facility] [address] [place] [address] Jurgen Osullivan M.D. [id number] Erythrocyte distribution width (RBC) [Ratio] 14.5 % Normal 11.6-14.8 [facility] Comment on above: Performed By: #### L [id number] #### [facility] [address] [place] [address] Jurgen Osullivan M.D. [id number] Hematocrit (Bld) [Volume fraction] 41.6 % Normal 36.0-46.0 [facility] Comment on above: Performed By: #### L [id number] #### [facility] [address] [place] [address] Jurgen Osullivan M.D. [id number] Hemoglobin (Bld) [Mass/Vol] 13.4 g/dL Normal 12.0-16.0 [facility] Comment on above: Performed By: #### L [id number] #### [facility] [address] [place] [address] Jurgen Osullivan M.D. [id number] IG ABSOLUTE 0.01 K/mcL Normal 0.00-0.30 [facility] Comment on above: Performed By: #### L [id number] #### [facility] [address] [place] [address] Jurgen Osullivan M.D. [id number] IG PERCENT 0.20 % Normal [facility] Comment on above: Result Comment: The IG parameter is the percentage of metamyelocytes, myelocytes and promyelocytes. An immature granulocyte count (IG) of 1% or more suggests the possibility of infection, an IG count of 3% is very likely related to an infection. Performed By: #### L [id number] #### [facility] [address] [place] [address] Jurgen Osullivan M.D. [id number] Lymphocytes (Bld) [#/Vol] 1.77 10*3/uL Normal 0.90-4.00 [facility] Comment on above: Performed By: #### Deirdre [id number] #### [facility] [address] [place] [address] Jurgen Osullivan M.D. [id number] Lymphocytes/100 WBC (Bld) 32.8 % Normal [facility] Comment on above: Performed By: #### Deirdre [id number] #### [facility] [address] [place] [address] Jurgen Osullivan M.D. [id number] MCH (RBC) [Entitic mass] 32.0 pg Normal 26.0-34.0 [facility] Comment on above: Performed By: #### Deirdre [id number] #### [facility] [address] [place] [address] Jurgen Osullivan M.D. [id number] MCV (RBC) [Entitic vol] 99.3 fL Normal 80.0-100.0 R [facility] Comment on above: Performed By: #### Deirdre [id number] #### [facility] [address] [place] [address] Jurgen Osullivan M.D. [id number] MEAN CORPUSCULAR HEMOGLOBIN CONC 32.2 g/dL Normal 31.0-37.0 [facility] Comment on above: Performed By: #### Deirdre [id number] #### [facility] [address] [place] [address] Jurgen Osullivan M.D. [id number] Monocytes (Bld) [#/Vol] 0.72 10*3/uL Normal 0.30-0.90 [facility] Comment on above: Performed By: #### Deirdre [id number] #### [facility] [address] [place] [address] Jurgen Osullivan M.D. [id number] Monocytes/100 WBC (Bld) 13.4 % Normal [facility] Comment on above: Performed By: #### L [id number] #### [facility] [address] [place], [place] [address] Jurgen Osullivan M.D. [id number] NEUTROPHILS ABSOLUTE COUNT 2.70 K/mcL Normal 1.70-7.00 [facility] Comment on above: Performed By: #### Deirdre [id number] #### [facility] [address] [place] [address] Jurgen Osullivan M.D. [id number] Neutrophils/100 WBC (Bld) 50.1 % Normal [facility] Comment on above: Performed By: #### Deirdre [id number] #### [facility] [address] [place] [address] Jurgen Osullivan M.D. [id number] Platelet mean volume (Bld) [Entitic vol] 10.7 fL Normal 9.4-12.4 [facility] Comment on above: Performed By: #### Deirdre [id number] #### [facility] [address] [place] [address] Jurgen Osullivan M.D. [id number] Platelets (Bld) [#/Vol] 240 10*3/uL Normal 150-400 [facility] Comment on above: Performed By: #### L [id number] #### [facility] [address] [place], [place] [address] Jurgen Osullivan M.D. [id number] RBC (Bld) [#/Vol] 4.19 10*6/uL Normal 4.00-5.20 [facility] Comment on above: Performed By: #### L [id number] #### [facility] [address] [place], [place] [address] Jurgen Osullivan M.D. [id number] WBC (Bld) [#/Vol] 5.39 10*3/uL Normal 4.50-11.00 [facility] Comment on above: Performed By: #### L [id number] #### [facility] [address] [place] [address] Jurgen Osullivan M.D. [id number] COMPREHENSIVE METABOLIC PANE Rehan 04-18-2024 Albumin [Mass/Vol] 3.5 g/dL Normal 3.2-5.2 [facility] Comment on above: Order Comment: [facility] has implemented the eGFR calculation approach that does not have a coefficient for race that conforms to the NKF-ASN Task Force Recommendations. Performed By: #### 4 [id number] #### [facility] [address] [place] [address] Jurgen Osullivan M.D. [id number] ALP [Catalytic activity/Vol] 174 U/L High 40-150 [facility] Comment on above: Order Comment: [facility] has implemented the eGFR calculation approach that does not have a coefficient for race that conforms to the NKF-ASN Task Force Recommendations. Performed By: #### 4 [id number] #### [facility] [address] [place] [address] Jurgen Osullivan M.D. [id number] ALT [Catalytic activity/Vol] 27 U/L Normal 0-35 U/L [facility] Comment on above: Order Comment: [facility] has implemented the eGFR calculation approach that does not have a coefficient for race that conforms to the NKF-ASN Task Force Recommendations. Performed By: #### 4 [id number] #### [facility] [address] [place] [address] Jurgen Osullivan M.D. [id number] Anion gap [Moles/Vol] 17 mmol/L Normal 10-20 [facility] Comment on above: Order Comment: [facility] has implemented the eGFR calculation approach that does not have a coefficient for race that conforms to the NKF-ASN Task Force Recommendations. Performed By: #### 4 [id number] #### [facility] [address] [place] [address] Jurgen Osullivan M.D. [id number] AST [Catalytic activity/Vol] 23 U/L Normal 0-35 U/L [facility] Comment on above: Order Comment: [facility] has implemented the eGFR calculation approach that does not have a coefficient for race that conforms to the NKF-ASN Task Force Recommendations. Performed By: #### 4 [id number] #### [facility] [address] [place] [address] Jurgen Osullivan M.D. [id number] Bilirubin [Mass/Vol] 0.5 mg/dL Normal 0.0-1.3 [facility] Comment on above: Order Comment: [facility] has implemented the eGFR calculation approach that does not have a coefficient for race that conforms to the NKF-ASN Task Force Recommendations. Performed By: #### 4 [id number] #### [facility] [address] [place] [address] 46053 Jurgen Osullivan M.D. [id number] Calcium [Mass/Vol] 8.8 mg/dL Normal 8.4-10.2 [facility] Comment on above: Order Comment: [facility] has implemented the eGFR calculation approach that does not have a coefficient for race that conforms to the NKF-ASN Task Force Recommendations. Performed By: #### 4 6126 #### [facility] [address] [place] [address] 62058 Jurgen Osullivan M.D. [id number] Chloride [Moles/Vol] 108 mmol/L Normal 98-108 [facility] Comment on above: Order Comment: [facility] has implemented the eGFR calculation approach that does not have a coefficient for race that conforms to the NKF-ASN Task Force Recommendations. Performed By: #### 4 6126 #### [facility] [address] [place] [address] 88627 Jurgen Osullivan M.D. [id number] Creatinine [Mass/Vol] 0.48 mg/dL Low 0.60-1.10 [facility] Comment on above: Order Comment: [facility] has implemented the eGFR calculation approach that does not have a coefficient for race that conforms to the NKF-ASN Task Force Recommendations. Performed By: #### 4 6126 #### [facility] [address] [place], [place] [id number] Jurgen Osullivan M.D. [id number] EGFR 102 mL/min/1.73 m2 Normal >=60 [facility] Comment on above: Order Comment: [facility] has implemented the eGFR calculation approach that does not have a coefficient for race that conforms to the NKF-ASN Task Force Recommendations. Result Comment: Aura mated GFR was calculated using the 2020 CKD-EPI creatinine equation. Performed By: #### 4 6126 #### [facility] [address] [place] [address] 82659 Jurgen Osullivan M.D. [id number] Glucose [Mass/Vol] 84 mg/dL Normal 65-99 [facility] Comment on above: Order Comment: [facility] has implemented the eGFR calculation approach that does not have a coefficient for race that conforms to the NKF-ASN Task Force Recommendations. Performed By: #### 4 6126 #### [facility] [address] [place] [address] 20067 Jurgen Osullivan M.D. [id number] HCO3 (Bld) [Moles/Vol] 24 mmol/L Normal 21-32 [facility] Comment on above: Order Comment: [facility] has implemented the eGFR calculation approach that does not have a coefficient for race that conforms to the NKF-ASN Task Force Recommendations. Performed By: #### 4 6126 #### [facility] [address] [place] [address] 75064 Jurgen Osullivan M.D. [id number] Potassium [Moles/Vol] 3.8 mmol/L Normal 3.5-5.1 [facility] Comment on above: Order Comment: [facility] has implemented the eGFR calculation approach that does not have a coefficient for race that conforms to the NKF-ASN Task Force Recommendations. Performed By: #### 4 6126 #### [facility] [address] [place] [address] 67581 Jurgen Osullivan M.D. [id number] Protein [Mass/Vol] 5.9 g/dL Low 6.0-8.0 [facility] Comment on above: Order Comment: [facility] has implemented the eGFR calculation approach that does not have a coefficient for race that conforms to the NKF-ASN Task Force Recommendations. Performed By: #### 4 6126 #### [facility] [address] [place] [address] 83496 Jurgen Osullivan M.D. [id number] Sodium [Moles/Vol] 145 mmol/L Normal 135-145 [facility] Comment on above: Order Comment: [facility] has implemented the eGFR calculation approach that does not have a coefficient for race that conforms to the NKF-ASN Task Force Recommendations. Performed By: #### 4 6126 #### [facility] [address] [place] [address] 95002 Jurgen Osullivan M.D. [id number] Urea nitrogen [Mass/Vol] 11 mg/dL Normal 8-25 [facility] Comment on above: Order Comment: [facility] has implemented the eGFR calculation approach that does not have a coefficient for race that conforms to the NKF-ASN Task Force Recommendations. Performed By: #### 4 6126 #### [facility] [address] [place] [address] 39102 Jurgen Osullivan M.D. [id number] Urea nitrogen/Creatinine [Mass ratio] 22.9 mg/mg High 10.0-20.0 [facility] Comment on above: Order Comment: [facility] has implemented the eGFR calculation approach that does not have a coefficient for race that conforms to the NKF-ASN Task Force Recommendations. Performed By: #### 4 6126 #### [facility] [address] [address] Jurgen Osullivan M.D. [id number] CHEST 1 VIEW (PICC/ET PLACEM ENTon 04-14-2024 CHEST 1 VIEW (PICC/ET PLACEMENT [address] [address] Patient: GEORGIA OCHOA Phone#: : 1955 Age: 68 Gender: F Pt. Type: Out Account: [id number] Location: [facility] Ordering: MARKUS FERRARO Exam Date: 04/14/2024/15:52 Family Phys: Charge Code: [id number] Physician: Leon Order #: [id number] Dose#: PROCEDURE: CHEST 1 VIEW (PICC/ET PLACEMENT) COMPARISON: None. INDICATIONS: PICC placement. FINDINGS: LUNGS: The patient is severely rotated limiting evaluation. Right-sided PICC line is present. The catheter tip is not visualized however catheter is in the jugular vein. VASCULATURE: Normal. Unremarkable pulmonary vasculature. CARDIAC: Normal. No cardiac silhouette abnormality or cardiomegaly. MEDIASTINUM: Normal. No visible mass or adenopathy. PLEURA: Normal. No effusion or pleural thickening. BONES: Normal. No fracture or visible bony lesion. OTHER: Negative. CONCLUSION: 1. Limited evaluation due to patient rotation. Right-sided PICC line however is in the jugular vein. Dictated by: Tavia Mancini MD on 04/14/2024 at 16:28 Approved by: Tavia Mancini MD on 04/14/2024 at 16:31 Normal [facility] CHEST 1 VIEW (PICC/ET PLACEMENT [address] [place] [address] Patient: GEORGIA OCHOA Phone#: : 1955 Age: 68 Gender: F Pt. Type: Out Account: [id number] Location: 062 Ordering: MARKUS FERRARO Exam Date: 04/14/2024/15:52 Family Phys: Charge Code: 386595 Physician: Leon Order #: [id number] Dose#: PROCEDURE: CHEST 1 VIEW (PICC/ET PLACEMENT) COMPARISON: None. INDICATIONS: PICC PLACEMENT. FINDINGS: LUNGS: Right-sided PICC line is present. Patient is rotated however tip appears to be at the right atrium or possibly right atrial inferior vena cava junction. Hazy right midlung infiltrate versus edema. VASCULATURE: Normal. Unremarkable pulmonary vasculature. CARDIAC: Normal. No cardiac silhouette abnormality or cardiomegaly. MEDIASTINUM: Normal. No visible mass or adenopathy. PLEURA: Normal. No effusion or pleural thickening. BONES: Normal. No fracture or visible bony lesion. OTHER: Negative. CONCLUSION: 1. Right-sided PICC line is present and terminates in the right atrium versus right atrial inferior vena cava junction. Dictated by: Tavia Mancini MD on 04/14/2024 at 16:27 Approved by: Tavia Mancini MD on 04/14/2024 at 16:28 Normal [facility] CHEST 1 VIEW (PICC/ET PLACEMENT [address] [place] [address] Patient: GEORGIA OCHOA Phone#: : 1955 Age: 68 Gender: F Pt. Type: Out Account: [id number] Location: 062 Ordering: MARKUS FERRARO Exam Date: 04/14/2024/15:52 Family Phys: Charge Code: 637384 Physician: Leon Order #: [id number] Dose#: PROCEDURE: CHEST 1 VIEW (PICC/ET PLACEMENT) COMPARISON: None. INDICATIONS: PICC PLACEMENT. FINDINGS: LUNGS: Hazy infiltrate versus edema is present in the right. Right-sided PICC line is present. The tip terminates at the junction superior vena cava and right atrium. Patient is rotated limiting evaluation. VASCULATURE: Normal. Unremarkable pulmonary vasculature. CARDIAC: Normal. No cardiac silhouette abnormality or cardiomegaly. MEDIASTINUM: Normal. No visible mass or adenopathy. PLEURA: Normal. No effusion or pleural thickening. BONES: Normal. No fracture or visible bony lesion. OTHER: Negative. CONCLUSION: 1. Right-sided PICC line is present at the SVC right atrial junction. Dictated by: Tavia Mancini MD on 04/14/2024 at 16:26 Approved by: Tavia Mancini MD on 04/14/2024 at 16:26 Normal [facility] Miscellaneous Lab Procedureo n 03-23-2024 [facility] TEST Normal [facility] Comment on above: Order Comment: LC121 200 VITAMIN K1 SER/PFL/RF Result Comment: TEST RESULTS LIMITS Vitamin K 2.50 High ng/mL 0.10-2.20 TESTING PERFORMED AT [facility]. ORIGINAL REPORT ON FILE IN LAB CONTAINS ADDITIONAL TEST SITE INFORMATION. Performed By: #### L 506.0400, L506.1000, L509.1000, L801.1541, L501.9520, L3300.0960, L501.5101, L501.98816, L3300.6900, L3100.5450, L3300.7027 #### [facility] [address] [place], [place], [id number] TICO w/ Reflex Mult Confirmon 03-18-2024 TICO,DIRECT Negative Normal Negative [facility] Comment on above: Result Comment: Perf ormed at: [address] [id number] Continuous Improvement Lead: Bessie Mckinnon MD, Phone: [phone] Performed at: - [facility] [id number] Continuous Improvement Lead: Jann Clancy PhD, Phone: [phone] Performed By: #### L 506.0400, L506.1000, L509.1000, L801.1541, L501.9520, L3300.0960, L501.5101, L501.79641, L3300.6900, L3100.5450, L3300.7027 #### [facility] [address] [place], [place], [id number] Vitamin D 1,25-Dihydroxyon 0 03-18-2024 VIT D 1,25 DIHY 40.6 pg/mL Normal 24.8-81.5 [facility] Comment on above: Performed By: #### L 506.0400, L506.1000, L509.1000, L801.1541, L501.9520, L3300.0960, L501.5101, L501.41826, L3300.6900, L3100.5450, L3300.7027 #### [facility] [address] [place], [address] L501.5101on 03-16-2024 GGTP 26 IU/L Normal 0-60 [facility] Comment on above: Performed By: #### L 506.0400, L506.1000, L509.1000, L801.1541, L501.9520, L3300.0960, L501.5101, L501.83669, L3300.6900, L3100.5450, L3300.7027 #### [facility] [address] [place], [place], [id number] Thyroglobulin Antibodyon TG AB < 1.0 Normal 0.0-0.9 [facility] Comment on above: Result Comment: Thyr oglobulin Antibody measured by [employer] It should be noted that the presence of thyroglobulin antibodies may not be pathogenic nor diagnostic, especially at very low levels. The assay wildland firefighter has found that four percent of individuals without evidence of thyroid disease or autoimmunity will have positive TgAb levels up to 4 IU/mL. Performed By: #### L 506.0400, L506.1000, L509.1000, L801.1541, L501.9520, L3300.0960, L501.5101, L501.31216, L3300.6900, L3100.5450, L3300.7027 #### [facility] [address] [place], [place], [id number] Thyroid Peroxidase ABon 07-0 THYR PEROX AB 11 IU/mL Normal 0-34 [facility] Comment on above: Result Comment: Perf ormed at: [facility] [address] [id number] Continuous Improvement Lead: Jann Clancy PhD, Phone: [phone] Performed By: #### L 506.0400, L506.1000, L509.1000, L801.1541, L501.9520, L3300.0960, L501.5101, L501.54968, L3300.6900, L3100.5450, L3300.7027 #### [facility] [address] [facility] [place], [address] Free T3on 03-14-2024 Free T3 [Mass/Vol] 3.0 pg/mL Normal 2.18-3.98 [facility] Comment on above: Performed By: #### L 506.0400, L506.1000, L509.1000, L801.1541, L501.9520, L3300.0960, L501.5101, L501.97846, L3300.6900, L3100.5450, L3300.7027 #### [facility] [address] [place], [address] PTHINon 03-14-2024 PTH 78.8 pg/mL Normal 18.4-80.1 [facility] Comment on above: Performed By: #### L 506.0400, L506.1000, L509.1000, L801.1541, L501.9520, L3300.0960, L501.5101, L501.08886, L3300.6900, L3100.5450, L3300.7027 #### [facility] [address] [place], [address] T4 Free Directon 03-14-2024 T4 FREE DIRECT 1.15 ng/dL Normal 0.76-1.46 [facility] Comment on above: Performed By: #### L 506.0400, L506.1000, L509.1000, L801.1541, L501.9520, L3300.0960, L501.5101, L501.79892, L3300.6900, L3100.5450, L3300.7027 #### [facility] [address] [facility] [place], [place], [id number] Thyroid Stim Hormone (TSH)on 03-14-2024 TSH 2.79 uIU/mL Normal 0.358-3.74 [facility] Comment on above: Performed By: #### L 506.0400, L506.1000, L509.1000, L801.1541, L501.9520, L3300.0960, L501.5101, L501.65656, L3300.6900, L3100.5450, L3300.7027 #### [facility] [address] [facility] [place], [address] Vitamin D,25 Hydroxyon 03-14 Vitamin D 25-OH 25.8 ng/mL Normal [facility] Comment on above: Result Comment: Angy min D 25(OH) Status Range Deficiency <20 ng/mL (50nmol/L) Insufficiency 20 - 30 ng/mL (50 - 75 nmol/L) Sufficiency 30 - 100 ng/mL (75 - 250 nmol/L) Toxicity >100 ng/mL (>250 nmol/L) Performed By: #### L 506.0400, L506.1000, L509.1000, L801.1541, L501.9520, L3300.0960, L501.5101, L501.45655, L3300.6900, L3100.5450, L3300.7027 #### [facility] [address] [place], [place], [id number] G6PD Quanton 03-06-2024 G6PD QUANT test 253 Normal 127-427 [facility] Comment on above: Result Comment: Resu lt Units: U/10E12 RBC When decreased, G-6-PD, Quant. values are associated with acute hemolytic anemia when deficient individuals are exposed to oxidative stress, such as with certain medications (e.g., primaquine), infection, or ingestion of nic beans. Caution: In patients with acute hemolysis (e.g., abnormally low RBC values), testing for G-6-PD may be falsely normal because older erythrocytes with a higher enzyme deficiency have been hemolyzed. Young erythrocytes and reticulocytes have normal or near-normal enzyme activity. Normal values of G-6-PD may be measured for several weeks following a hemolytic event. Performed at: [facility] [address] [id number] Continuous Improvement Lead: Jann Clancy PhD, Phone: [phone] Performed at: [facility] [address] [id number] Continuous Improvement Lead: Bessie Mckinnon MD, Phone: [phone] Performed By: #### L 506.0400, L506.1000, L509.1000, L801.1541, L501.9520, L3300.0960, L501.5101, L501.83706, L3300.6900, L3100.5450, L3300.7027 #### [facility] [address] [place], [address] RBC COUNT 4.71 x10E6/uL Normal 3.77-5.28 [facility] Comment on above: Performed By: #### L 506.0400, L506.1000, L509.1000, L801.1541, L501.9520, L3300.0960, L501.5101, L501.51922, L3300.6900, L3100.5450, L3300.7027 #### [facility] [address] [facility] [place], [address] CBC W/Diff, Automatedon 02-12 Absolute Lymph 1.76 X10 3/uL Normal 0.83-4.51 [facility] Comment on above: Performed By: #### L 506.0400, L506.1000, L509.1000, L801.1541, L501.9520, L3300.0960, L501.5101, L501.27836, L3300.6900, L3100.5450, L3300.7027 #### [facility] [address] [facility] [place], [address] Absolute Neut 3.0 X10 3/uL Normal 2.0-7.7 [facility] Comment on above: Performed By: #### L 506.0400, L506.1000, L509.1000, L801.1541, L501.9520, L3300.0960, L501.5101, L501.64270, L3300.6900, L3100.5450, L3300.7027 #### [facility] [address] [facility] [place], [address] Basophils/100 WBC (Bld) 0.7 % Normal 0-1 [facility] Comment on above: Performed By: #### L 506.0400, L506.1000, L509.1000, L801.1541, L501.9520, L3300.0960, L501.5101, L501.08210, L3300.6900, L3100.5450, L3300.7027 #### [facility] [address] [place], [address] Eosinophils/100 WBC (Bld) 1.8 % Normal 0-5 [facility] Comment on above: Performed By: #### L 506.0400, L506.1000, L509.1000, L801.1541, L501.9520, L3300.0960, L501.5101, L501.55268, L3300.6900, L3100.5450, L3300.7027 #### [facility] [address] [place], [address] Erythrocyte distribution width (RBC) [Ratio] 13.2 % Normal 11.6-14.6 [facility] Comment on above: Performed By: #### L 506.0400, L506.1000, L509.1000, L801.1541, L501.9520, L3300.0960, L501.5101, L501.54142, L3300.6900, L3100.5450, L3300.7027 #### [facility] [address] [facility] [place], [place], [phone] (068) Hematocrit (Bld) [Volume fraction] 44.2 % Normal 37-47 [facility] Comment on above: Performed By: #### L 506.0400, L506.1000, L509.1000, L801.1541, L501.9520, L3300.0960, L501.5101, L501.04618, L3300.6900, L3100.5450, L3300.7027 #### [facility] [address] [place], [address] Hemoglobin (Bld) [Mass/Vol] 14.7 g/dL Normal 12.0-15.0 [facility] Comment on above: Performed By: #### L 506.0400, L506.1000, L509.1000, L801.1541, L501.9520, L3300.0960, L501.5101, L501.77885, L3300.6900, L3100.5450, L3300.7027 #### [facility] [address] [place], [address] IG% 0.900 Normal 0.0-0.9 [facility] Comment on above: Result Comment: IG% - Immature Granulocytes (promyelocytes, myelocytes and metamyelocytes) > 1% indicates that a LEFT SHIFT is Present. Performed By: #### L 506.0400, L506.1000, L509.1000, L801.1541, L501.9520, L3300.0960, L501.5101, L501.83876, L3300.6900, L3100.5450, L3300.7027 #### [facility] [address] [place], [address] Lymphocytes/100 WBC (Bld) 32.2 % Normal 19-41 [facility] Comment on above: Performed By: #### L 506.0400, L506.1000, L509.1000, L801.1541, L501.9520, L3300.0960, L501.5101, L501.41143, L3300.6900, L3100.5450, L3300.7027 #### [facility] [address] [place], [address] MCH (RBC) [Entitic mass] 32.1 pg High 27.0-32.0 [facility] Comment on above: Performed By: #### L 506.0400, L506.1000, L509.1000, L801.1541, L501.9520, L3300.0960, L501.5101, L501.23394, L3300.6900, L3100.5450, L3300.7027 #### [facility] [address] [place], [address] MCHC (RBC) [Mass/Vol] 33.3 g/dL Normal 32-36 [facility] Comment on above: Performed By: #### L 506.0400, L506.1000, L509.1000, L801.1541, L501.9520, L3300.0960, L501.5101, L501.09078, L3300.6900, L3100.5450, L3300.7027 #### [facility] [address] [place], [address] MCV (RBC) [Entitic vol] 96.5 fL Normal 81-99 [facility] Comment on above: Performed By: #### L 506.0400, L506.1000, L509.1000, L801.1541, L501.9520, L3300.0960, L501.5101, L501.28521, L3300.6900, L3100.5450, L3300.7027 #### [facility] [address] [place], [address] Monocytes/100 WBC (Bld) 9.0 % Normal 0-[address] [facility] Comment on above: Performed By: #### L 506.0400, L506.1000, L509.1000, L801.1541, L501.9520, L3300.0960, L501.5101, L501.14215, L3300.6900, L3100.5450, L3300.7027 #### [facility] [address] [place], [address] Neutrophils/100 WBC (Bld) 55.4 % Normal 47-70 [facility] Comment on above: Performed By: #### L 506.0400, L506.1000, L509.1000, L801.1541, L501.9520, L3300.0960, L501.5101, L501.22057, L3300.6900, L3100.5450, L3300.7027 #### [facility] [address] [place], [address] Nucleated RBC (Bld) [#/Vol] 0 10*3/uL Normal 0-5 [facility] Comment on above: Performed By: #### L 506.0400, L506.1000, L509.1000, L801.1541, L501.9520, L3300.0960, L501.5101, L501.93664, L3300.6900, L3100.5450, L3300.7027 #### [facility] [address] [place], [address] Platelet mean volume (Bld) [Entitic vol] 10.1 fL Normal 6.2-12.0 [facility] Comment on above: Performed By: #### L 506.0400, L506.1000, L509.1000, L801.1541, L501.9520, L3300.0960, L501.5101, L501.76907, L3300.6900, L3100.5450, L3300.7027 #### [facility] [address] [place], [address] Platelets (Bld) [#/Vol] 269 10*3/uL Normal 150-450 [facility] Comment on above: Performed By: #### L 506.0400, L506.1000, L509.1000, L801.1541, L501.9520, L3300.0960, L501.5101, L501.62902, L3300.6900, L3100.5450, L3300.7027 #### [facility] [address] [place], [address] RBC (Bld) [#/Vol] 4.58 10*6/uL Normal 4.2-5.4 [facility] Comment on above: Performed By: #### L 506.0400, L506.1000, L509.1000, L801.1541, L501.9520, L3300.0960, L501.5101, L501.13101, L3300.6900, L3100.5450, L3300.7027 #### [facility] [address] [place], [address] RDW SD 47.1 fl High 35.1-43.9 [facility] Comment on above: Performed By: #### L 506.0400, L506.1000, L509.1000, L801.1541, L501.9520, L3300.0960, L501.5101, L501.38116, L3300.6900, L3100.5450, L3300.7027 #### [facility] [address] [place], [place], [id number] WBC (Bld) [#/Vol] 5.5 10*3/uL Normal 4.4-11.0 [facility] Comment on above: Performed By: #### L 506.0400, L506.1000, L509.1000, L801.1541, L501.9520, L3300.0960, L501.5101, L501.83576, L3300.6900, L3100.5450, L3300.7027 #### [facility] [address] [place], [place], [id number] Comprehensive Metabolic Prof [facility] 03-02-2024 Albumin [Mass/Vol] 3.4 g/dL Normal 3.2-5.0 [facility] Comment on above: Performed By: #### L 506.0400, L506.1000, L509.1000, L801.1541, L501.9520, L3300.0960, L501.5101, L501.56775, L3300.6900, L3100.5450, L3300.7027 #### [facility] [address] [place], [place], [id number] Albumin/Globulin [Mass ratio] 0.9 {ratio} Normal 0.9-2.4 [facility] Comment on above: Performed By: #### L 506.0400, L506.1000, L509.1000, L801.1541, L501.9520, L3300.0960, L501.5101, L501.97045, L3300.6900, L3100.5450, L3300.7027 #### [facility] [address] [place], [place], [id number] ALK P 169 U/L High 45-117 [facility] Comment on above: Performed By: #### L 506.0400, L506.1000, L509.1000, L801.1541, L501.9520, L3300.0960, L501.5101, L501.09206, L3300.6900, L3100.5450, L3300.7027 #### [facility] [address] [place], [place], [id number] ALT [Catalytic activity/Vol] 37 U/L Normal 13-56 [facility] Comment on above: Performed By: #### L 506.0400, L506.1000, L509.1000, L801.1541, L501.9520, L3300.0960, L501.5101, L501.78638, L3300.6900, L3100.5450, L3300.7027 #### [facility] [address] [place], [place], [id number] AST [Catalytic activity/Vol] 21 U/L Normal 15-37 [facility] Comment on above: Performed By: #### L 506.0400, L506.1000, L509.1000, L801.1541, L501.9520, L3300.0960, L501.5101, L501.06526, L3300.6900, L3100.5450, L3300.7027 #### [facility] [address] [place], [place], [id number] Bilirubin [Mass/Vol] 0.80 mg/dL Normal 0.20-1.00 [facility] Comment on above: Result Comment: For patients on eltrombopag therapy, use of Dimension [place] TBIL is not recommended. Performed By: #### L 506.0400, L506.1000, L509.1000, L801.1541, L501.9520, L3300.0960, L501.5101, L501.95730, L3300.6900, L3100.5450, L3300.7027 #### [facility] [address] [place], [address] BUN/CRE 20.4 RATIO High 10-20 [facility] Comment on above: Performed By: #### L 506.0400, L506.1000, L509.1000, L801.1541, L501.9520, L3300.0960, L501.5101, L501.06251, L3300.6900, L3100.5450, L3300.7027 #### [facility] [address] [facility] [place], [address] CA,Total 9.2 mg/dL Normal 8.5-10.1 [facility] Comment on above: Performed By: #### L 506.0400, L506.1000, L509.1000, L801.1541, L501.9520, L3300.0960, L501.5101, L501.83595, L3300.6900, L3100.5450, L3300.7027 #### [facility] [address] [facility] [place], [address] Chloride [Moles/Vol] 109 mmol/L High 98-107 [facility] Comment on above: Performed By: #### L 506.0400, L506.1000, L509.1000, L801.1541, L501.9520, L3300.0960, L501.5101, L501.35883, L3300.6900, L3100.5450, L3300.7027 #### [facility] [address] [place], [address] CO2 [Moles/Vol] 25.0 mmol/L Normal 21.0-32.0 [facility] Comment on above: Performed By: #### L 506.0400, L506.1000, L509.1000, L801.1541, L501.9520, L3300.0960, L501.5101, L501.84297, L3300.6900, L3100.5450, L3300.7027 #### [facility] [address] [place], [address] Creatinine [Mass/Vol] 0.59 mg/dL Normal 0.55-1.02 [facility] Comment on above: Result Comment: The validity of the calculated GFR GFRAA in patients over 70 years has not been determined. Clinical correlation is essential. Performed By: #### L 506.0400, L506.1000, L509.1000, L801.1541, L501.9520, L3300.0960, L501.5101, L501.08140, L3300.6900, L3100.5450, L3300.7027 #### [facility] [address] [place], [address] EST GFR - AA 130 mL/min Normal >60 [facility] Comment on above: Result Comment: Afri can Macanese GFR Calc Performed By: #### L 506.0400, L506.1000, L509.1000, L801.1541, L501.9520, L3300.0960, L501.5101, L501.12481, L3300.6900, L3100.5450, L3300.7027 #### [facility] [address] [place], [address] GAP 9 Normal 5-15 [facility] Comment on above: Performed By: #### L 506.0400, L506.1000, L509.1000, L801.1541, L501.9520, L3300.0960, L501.5101, L501.69431, L3300.6900, L3100.5450, L3300.7027 #### [facility] [address] [place], [address] GFR/1.73 sq M.predicted among non-blacks MDRD (S/P/Bld) [Vol rate/Area] 108 mL/min/{1.73_m2} Normal >60 [facility] Comment on above: Result Comment: Non- GFR Calc Performed By: #### L 506.0400, L506.1000, L509.1000, L801.1541, L501.9520, L3300.0960, L501.5101, L501.05279, L3300.6900, L3100.5450, L3300.7027 #### [facility] [address] [place], [address] Globulin (S) [Mass/Vol] 3.6 g/dL Normal 2.2-4.[address] [facility] Comment on above: Performed By: #### L 506.0400, L506.1000, L509.1000, L801.1541, L501.9520, L3300.0960, L501.5101, L501.13408, L3300.6900, L3100.5450, L3300.7027 #### [facility] [address] [place], [address] Glucose [Mass/Vol] 109 mg/dL High 74-106 [facility] Comment on above: Result Comment: Fast ing Glucose result from 100 to 125 mg/dL suggests IMPAIRED HOMEOSTASIS per A.D.A. criteria. Performed By: #### L 506.0400, L506.1000, L509.1000, L801.1541, L501.9520, L3300.0960, L501.5101, L501.06106, L3300.6900, L3100.5450, L3300.7027 #### [facility] [address] [place], [address] Potassium [Moles/Vol] 3.6 mmol/L Normal 3.5-5.1 [facility] Comment on above: Performed By: #### L 506.0400, L506.1000, L509.1000, L801.1541, L501.9520, L3300.0960, L501.5101, L501.80382, L3300.6900, L3100.5450, L3300.7027 #### [facility] [address] [place], [address] Sodium [Moles/Vol] 143 mmol/L Normal 136-145 [facility] Comment on above: Performed By: #### L 506.0400, L506.1000, L509.1000, L801.1541, L501.9520, L3300.0960, L501.5101, L501.17801, L3300.6900, L3100.5450, L3300.7027 #### [facility] [address] [facility] [place], [address] T PROT 7.0 g/dL Normal 6.4-8.2 [facility] Comment on above: Performed By: #### L 506.0400, L506.1000, L509.1000, L801.1541, L501.9520, L3300.0960, L501.5101, L501.26524, L3300.6900, L3100.5450, L3300.7027 #### [facility] [address] [place], [address] Urea nitrogen [Mass/Vol] 12 mg/dL Normal 7-18 [facility] Comment on above: Performed By: #### L 506.0400, L506.1000, L509.1000, L801.1541, L501.9520, L3300.0960, L501.5101, L501.80831, L3300.6900, L3100.5450, L3300.7027 #### [facility] [address] [place], [address] Ferritinon 03-02-2024 Ferritin [Mass/Vol] 112 ng/mL Normal 8-252 [facility] Comment on above: Performed By: #### L 506.0400, L506.1000, L509.1000, L801.1541, L501.9520, L3300.0960, L501.5101, L501.29431, L3300.6900, L3100.5450, L3300.7027 #### [facility] [address] [place], [address] Ironon 03-02-2024 Iron [Mass/Vol] 91 ug/dL Normal 50-170 [facility] Comment on above: Performed By: #### L 506.0400, L506.1000, L509.1000, L801.1541, L501.9520, L3300.0960, L501.5101, L501.57888, L3300.6900, L3100.5450, L3300.7027 #### [facility] [address] [place], [address] MG Breast - bilateral Diagno sticon 12-15-2023 IMPRESSION: No specific mammographic evidence of malignancy. BI-RADS: 1: Negative Recommendation: Clinical correlation/managem ent. Recommendation Laterality: Right OLOGY EXAM: MAMMO DIAGNOSTIC WITH AMOS BILATERAL, 12/15/2023 14:29 PM CLINICAL INDICATIONS AND HISTORY: Diffuse Right breast pain N64.4:Breast pain COMPARISON: June 08, 2012 MAMMOGRAM TECHNIQUE: 2-D MLO and CC views were obtained of the bilateral breasts. 3-D MLO and CC digital tomosynthesis images were also acquired. Computer aided detection was utilized. MAMMOGRAM FINDINGS: Breast Density: The breasts have scattered areas of fibroglandular density. There are no suspicious masses, calcifications, or architectural distortions. RADIOLOGY Rick Alves MD - 12/15/2023 EXAM: MAMMO DIAGNOSTIC WITH AMOS BILATERAL, 12/15/2023 14:29 PM CLINICAL INDICATIONS AND HISTORY: Diffuse Right breast pain N64.4:Breast pain COMPARISON: June 08, 2012 MAMMOGRAM TECHNIQUE: 2-D MLO and CC views were obtained of the bilateral breasts. 3-D MLO and CC digital tomosynthesis images were also acquired. Computer aided detection was utilized. MAMMOGRAM FINDINGS: Breast Density: The breasts have scattered areas of fibroglandular density. There are no suspicious masses, calcifications, or architectural distortions. IMPRESSION IMPRESSION: No specific mammographic evidence of malignancy. BI-RADS: 1: Negative Recommendation: Clinical correlation/managem ent. Recommendation Laterality: Right [facility] Radiology Study observation (narrative) [facility] MG Breast - bilateral Diagno sticOrdered By: Rick Alves on 12-15-2023 [facility] Work Phone: Comprehensive metabolic 2000 panelon 11-11-2023 Albumin [Mass/Vol] 3.9 g/dL 3.2 - 5.2 g/dL [facility] ALP [Catalytic activity/Vol] 169 U/L High 40 - 150 U/L [facility] ALT [Catalytic activity/Vol] 50 U/L High 0-35 U/L [facility] Anion gap [Moles/Vol] 15 mmol/L 10 - 20 mmol/L [facility] AST [Catalytic activity/Vol] 31 U/L 0-35 U/L [facility] Bilirubin [Mass/Vol] 0.6 mg/dL 0.0 - 1 .3 mg/dL [facility] Calcium [Mass/Vol] 9.6 mg/dL 8.4 - 10. 2 mg/dL [facility] Chloride [Moles/Vol] 105 mmol/L 98 - 10 8 mmol/L [facility] Creatinine [Mass/Vol] 0.47 mg/dL Low 0.60 - 1.20 mg/dL [facility] GFR/1.73 sq M.predicted CKD-EPI (S/P/Bld) [Vol rate/Area] 103 - PINF [facility] Comment on above: Estimated GFR was ca lculated using the 2020 CKD-EPI creatinine equation. Glucose [Mass/Vol] 113 mg/dL High 65 - 99 mg/dL [facility]al HCO3 [Moles/Vol] 24 mmol/L 21 - 32 mmol/L [facility] Interpretation and review of laboratory results Abnormal [facility] Potassium [Moles/Vol] 3.7 mmol/L 3.5 - 5.1 mmol/L [facility] Protein [Mass/Vol] 6.4 g/dL 6.0 - 8.0 g/dL [facility] Sodium [Moles/Vol] 140 mmol/L 135 - 145 mmol/L [facility] Urea nitrogen [Mass/Vol] 7 mg/dL Low 8 - 25 mg/dL [facility] Urea nitrogen/Creatinine [Mass ratio] 14.9 mg/mg 10.0 - 20.0 [facility] Services has implemented the eGFR calculation approach that does not have a coefficient for race that conforms to the NKF-ASN Task Force Recommendations. [facility] POC Urinalysis Dipstick, Aut oOrdered By: Asha Burgos on 11-11-2023 Bilirubin Ql (U) Negative Negative [facility] Glucose Ql (U) Negative Normal, Negative mg/dL [facility] Hemoglobin Ql (U) Trace-intact Abnormal Negative [facility] ealt Interpretation and review of laboratory results Abnormal [facility] Ketones Ql (U) Negative Negative mg/dL [facility] alth Leukocyte esterase Test strip Ql (U) Small Abnormal Negative [facility] Nitrite Ql (U) Negative Negative [facility] pH (U) 5.5 [pH] 5.0 - 7.0 [facility] Protein Ql (U) Negative Negative mg/dL [facility] alth Specific gravity (U) [Rel density] 1.030 Abnormal 1.005 - 1.025 [facility] Urobilinogen Qn (U) 0.2 mg/dL <2.0, 0. 2, Normal, Negative, 1.0, 2.0, <1.0 [facility] MR BRAIN WITH AND WITHOUT CO NTRASTon 11-04-2023 MR BRAIN WITH AND WITHOUT CONTRAST EXAMINATION: MR BRAIN WITH AND WITHOUT CONTRAST HISTORY: Mental status change, unknown cause COMPARISON: CT head 11/02/2023. TECHNIQUE: Standard MRI of the brain with and without contrast. CONTRAST: GADOTERATE MEGLUMINE 0.5 MMOL/ML (376.9 MG/ML) INTRAVENOUS SOLUTION - 18 mL, FINDINGS: No restricted diffusion, midline shift, extra-axial fluid collections, hydrocephalus, or other mass effect. Intracranial flow voids are maintained. No abnormal parenchymal, leptomeningeal, or dural enhancement. Innumerable scattered small and patchy hyperintense T2/FLAIR periventricular and subcortical foci are likely on the basis of chronic microvascular angiopathic changes. Yfvu-oe-eysztvgl symmetric global volume loss without lobar predominance. Commensurate ventricular system prominence. No mass of either internal auditory canal or cerebellopontine angle. No soft tissue abnormalities. Normal marrow signal. Paranasal sinuses are well aerated. Moderate bilateral mastoid effusions. IMPRESSION: No acute intracranial process, recent infarction, or abnormal enhancement. Workstation ID: [id number] Dictated by: VELMA LOGAN on ThuNov 04, 2023 11:37:03 AM EST Transcribed by: VELMA LOGAN on ThuNov 04, 2023 11:37:03 AM EST Finalized by: VELMA LOGAN on ThuNov 04, 2023 11:37:03 AM EST [facility] Comment on above: Order Comment: Injur y/Trauma or Illness?:Illness/Other How long have you had these symptoms (acute/chronic)?:Acute Reason for exam?:Mental status change, unknown cause Type of Exam?:Subsequent/Follow-up Additional signs and symptoms?:Mental status change, unknown cause XR MODIFIED BARIUM SWALLOWon 11-04-2023 XR MODIFIED BARIUM SWALLOW EXAMINATION: XR MODIFIED BARIUM SWALLOW HISTORY: ORDERING SYSTEM PROVIDED HISTORY: dysphagia, TECHNOLOGIST PROVIDED HISTORY: Illness/Other Reason for exam: dysphagia Encounter Type: Unknown Additional signs and symptoms: dysphagia Fluoro dose in mGy: 2.38 ORDERING SYSTEM PROVIDED DIAGNOSIS CODES: R41.89 Impaired cognition F22 Delusions (HCC) N39.0 Acute UTI COMPARISON: No direct comparable studies. TECHNIQUE: Ka,r mGy: Fluoro dose in Ka,r mGy: 2.38 Fluoro time in minutes: 0.9 Number of images obtained: 264 Modified barium swallow was performed in conjunction with speech pathology. Numerous consistencies/textu res were evaluated including thin barium, nectar thick, honey, pudding, and solid. FINDINGS: Oral and pharyngeal phases of swallow are within functional limits. Laryngeal penetration of thin barium consistency. No tracheal aspiration. IMPRESSION: Oral and pharyngeal phases of swallow are within functional limits. Laryngeal penetration of thin barium consistency. No tracheal aspiration. Please see dedicated speech pathologist's note for further details and recommendations. Workstation ID: [id number] Dictated by: VELMA LOGAN on ThuNov 04, 2023 3:22:10 PM EST Transcribed by: VELMA LOGAN on ThuNov 04, 2023 3:22:10 PM EST Finalized by: VELMA LOGAN on ThuNov 04, 2023 3:22:10 PM EST [facility] Comment on above: Order Comment: Injur y/Trauma or Illness?:Illness/Other How long have you had these symptoms (acute/chronic)?:Unknown Reason for exam?:dysphagia Type of Exam?:Unknown Additional signs and symptoms?:dysphagia Fluoro time in minutes:0.9 Fluoro dose in mGy?:2.38 CT HEAD OR BRAIN WITHOUT CON TRASTon 11-02-2023 CT HEAD OR BRAIN WITHOUT CONTRAST EXAMINATION: CT HEAD OR BRAIN WITHOUT CONTRAST HISTORY: ORDERING SYSTEM PROVIDED HISTORY: AMS, 3 falls in Sep, TECHNOLOGIST PROVIDED HISTORY: Illness/Other Reason for exam: AMS, 3 falls in Sep Encounter Type: Unknown Additional signs and symptoms: AMS, 3 falls in [place] ORDERING SYSTEM PROVIDED DIAGNOSIS CODES: F22 Delusions ([facility]) N39.0 Acute UTI COMPARISON: CT head 08/13/2023 TECHNIQUE: CT examination of the head without IV contrast. Dose reduction techniques were achieved by using automated exposure control and/or adjustment of mA and/or kV according to patient size and/or use of iterative reconstruction technique. FINDINGS: Prominence of the cortical sulci is compatible with mild cerebral volume loss. Ventricles are normal in size. No extraaxial collection. No acute intracranial hemorrhage. Mild patchy cerebral white matter low attenuation likely relates to chronic small vessel ischemic changes. No CT evidence of large territorial infarction. Vascular calcifications involve the carotid arteries at the skull base. Visualized paranasal sinuses are well aerated. There is opacification of the inferior mastoid air cells bilaterally. Bilateral ocular lens replacement. No displaced calvarial fracture. IMPRESSION: No evidence of acute intracranial hemorrhage, mass effect, or large acute major vascular territory infarction. Chronic intracranial findings are similar in appearance compared to prior CT head 08/13/2023. Workstation ID: [id number] Dictated by: GRACIELA LEIGH on ThuNov 02, 2023 9:33:37 PM EST Transcribed by: GRACIELA LEIGH on ThuNov 02, 2023 9:33:37 PM EST Finalized by: GRACIELA LEIGH on ThuNov 02, 2023 9:33:37 PM EST Normal [facility] Comment on above: Order Comment: Injur y/Trauma or Illness?:Illness/Other How long have you had these symptoms (acute/chronic)?:Unknown Reason for exam?:AMS, 3 falls in Sep Type of Exam?:Unknown Additional signs and symptoms?:AMS, 3 falls in Sep XR CHEST PA/APon 11-02-2023 XR CHEST PA/AP EXAMINATION: AP UPRIGHT CHEST: 11/02/2023 AT 1617 HOURS. HISTORY: Injury/Trauma or Illness?:Illness/Ot her How long have you had these symptoms (acute/chronic)?:Un known dizziness COMPARISON FILMS: PA and lateral chest: 12/10/2016. IMPRESSION: FINDINGS/ 1. Patient is somewhat kyphotic. There are some artifacts from patient's clothing. The bones appear intact except for degenerative changes of thoracic spine. 2. The trachea is midline. The heart size seems normal. The aorta is slightly tortuous. 3. There are no discrete infiltrates, pleural effusions, pulmonary edema or pneumothorax. There is some atelectasis at the left lung base. [employer] Workstation ID: [id number] Dictated by: MARIOLA RICHARDSON on ThuNov 02, 2023 4:41:21 PM EST Transcribed by: MICHELINE SANDERS on ThuNov 02, 2023 5:11:47 PM EST Finalized by: MARIOLA RICHARDSON on ThuNov 02, 2023 5:34:46 PM EST Normal [facility] Comment on above: Order Comment: Injur y/Trauma or Illness?:Illness/Other How long have you had these symptoms (acute/chronic)?:Unknown Reason for exam?:dizziness History of cancer?:no Surgeries, chemotherapy, or radiation?:bilat renal stones Type of Exam?:Unknown Additional signs and symptoms?:Pt family member states the pt needs a psychiatric evaluation and has a hx of harming herself but is not saying that right now and pt has an obsession with lyme disease. Absolute lymphocyte countOrd ered By: Krys Lucero on 10-19-2023 Lymphocytes Auto (Unsp spec) [#/Vol] 1.66 10*3/uL 0.83-4.51 [facility] Automated lymphocyte count a s percentage of total leukocytesOrdered By: Krys Lucero on 10-19-2023 Lymphocytes/100 WBC Auto (Unsp spec) 22.0 % 19-41 [facility] Basophil percentageOrdered B y: Krys Lucero on 10-19-2023 Basophils/100 WBC (Bld) 0.5 % 0-1 [facility] Bilirubin [Mass/Vol] 0.80 mg/dL 0.20-1.00 [facility] Comment on above: For patients on eltr ombopag therapy, use of Dimension [place] TBIL is not recommended. Chloride [Moles/Vol] 105 mmol/L 98-107 [facility] Eosinophils/100 WBC (Bld) 0.5 % 0-5 [facility] Glucose [Mass/Vol] 122 mg/dL 74-106 [facility] Comment on above: Fasting Glucose resu lt from 100 to 125 mg/dL suggests IMPAIRED HOMEOSTASIS per A.D.A. criteria. Hemoglobin (Bld) [Mass/Vol] 15.5 g/dL 12.0-15.0 [facility] Monocytes/100 WBC (Bld) 8.1 % 0-[address] [facility] Neutrophils (Bld) [#/Vol] 5.2 10*3/uL 2.0-7.7 [facility] Neutrophils/100 WBC (Bld) 68.6 % 47-70 [facility] Potassium [Moles/Vol] 3.0 mmol/L 3.5-5.1 [facility] Protein [Mass/Vol] 7.0 g/dL 6.4-8.2 [facility] Sodium [Moles/Vol] 139 mmol/L 136-145 [facility] WBC (Bld) [#/Vol] 7.5 10*3/uL 4.4-11.0 [facility] Determination of erythrocyte mean corpuscular volume (MCV)Ordered By: Krys Lucero on 10-19-2023 MCV (RBC) [Entitic vol] 95.2 fL 81-[address] [facility] Erythrocyte distribution wid th ratioOrdered By: Krys Lucero on 10-19-2023 Erythrocyte distribution width (RBC) [Ratio] 13.9 % 11.6-14.6 [facility] Erythrocyte distribution wid th standard deviationOrdered By: Krys Lucero on 10-19-2023 Erythrocyte distribution width (RBC) [Entitic vol] 48.6 fL 35.1-43.9 [facility] Hematocrit Auto (Bld) [Volum e fraction]Ordered By: Krys Lucero on 10-19-2023 Hematocrit (Bld) [Volume fraction] 45.8 % 37-47 [facility] Immature granulocytes/100 WB C Auto (Bld)Ordered By: Krys Lucero on 10-19-2023 Immature granulocytes/100 WBC (Bld) 0.300 % 0.0-0.9 [facility] Comment on above: IG% - Immature Granu locytes (promyelocytes, myelocytes and metamyelocytes) > 1% indicates that a LEFT SHIFT is Present. Laboratory - Chemistry and C hemistry - challengeOrdered By: Krys Lucero on 10-19-2023 Albumin/Globulin [Mass ratio] 1.1 {ratio} 0.9-2.4 [facility] ALP [Catalytic activity/Vol] 174 U/L 45-117 [facility] ALT [Catalytic activity/Vol] 71 U/L 13-56 [facility] CO2 [Moles/Vol] 28.0 mmol/L 21.0-32.0 [facility] Cobalamin (Vitamin B12) [Mass/Vol] 582 pg/mL 211-911 [facility] Globulin (S) [Mass/Vol] 3.4 g/dL 2.2-4.[address] [facility] Urea nitrogen/Creatinine [Mass ratio] 16.6 mg/mg 10-20 [facility] - Hematology and Cell countsOrdered By: Krys Lucero on 10-19-2023 MCH (RBC) [Entitic mass] 32.2 pg 27.0-32.0 [facility] MCHC (RBC) [Mass/Vol] 33.8 g/dL 32-36 [facility] Nucleated RBC/100 WBC (Bld) [Ratio] 0 % 0-5 [facility] Platelets (Bld) [#/Vol] 293 10*3/uL 150-450 [facility] No Panel InformationOrdered By: Krys Lucero on 10-19-2023 Estimated GFR (MDRD) Amer 143 mL/min >60 [facility] Comment on above: GFR Calc Estimated GFR (MDRD) Non-Af Amer 118 mL/min >60 [facility] Comment on above: Non- GFR Calc Folate 10.80 ng/mL 3.1-55.4 [facility] Comment on above: Slight Hemolysis, Re sult may be falsely increased. Lyme Disease IgG Ab 18 kDa Band Absent . [facility] Lyme Disease IgG Ab 23 kDa Band Absent . [facility] Lyme Disease IgG Ab 28 kDa Band Absent . [facility] Lyme Disease IgG Ab 30 kDa Band Absent . [facility] Lyme Disease IgG Ab 39 kDa Band Present . [facility] Lyme Disease IgG Ab 41 kDa Band Present . [facility] Lyme Disease IgG Ab 45 kDa Band Absent . [facility] Lyme Disease IgG Ab 58 kDa Band Present . [facility] Lyme Disease IgG Ab 66 kDa Band Absent . [facility] Lyme Disease IgG Ab 93 kDa Band Present . [facility] Lyme Disease IgG [place] Interp Negative . [facility] Comment on above: Positive: 5 of the f ollowing Borrelia-specific bands: 18,23,28,30,39,41,45,58, 66, and 93. Negative: No bands or banding patterns which do not meet positive criteria. Lyme Disease IgM Ab (Western Blot) Negative . [facility] Comment on above: Note: An equivocal o r positive EIA result followed by anegative Line Blot result is considered NEGATIVE. Anequivocal or positive EIA result followed by a positiveLine Blot is considered POSITIVE by the CDC.Positive: 2 of the following bands: 23,39 or 41Negative: No bands or banding patterns which do not meetpositive criteria.Criteria for positivity are those recommended byCDC/ASTPHLD. p23=Osp C, z27=rcsnufibaNtsa:Sera from individuals with the following may cross reactin the Lyme Line Blot assays: other spirochetal diseases(periodontal disease, leptospirosis, relapsing fever, yaws,and pinta); connective autoimmune (Rheumatoid Arthritis andSystemic Lupus Erythematosus and also individuals withAntinuclear Antibody); other infections (Michelet MountainSpotted Fever; Lanre-Clement Virus, and Cytomegalovirus).Please Note: Lyme immunoblot alone is not recommended forthe diagnosis of Lyme disease. Current guidelines recommendthe use of a two-tiered approach to Lyme serology testingto improve the sensitivity and specificity of testing.[facility] offers test code 177937 Lyme Disease Serology withReflex to aid in the diagnosis of Lyme Disease.Performed at: [address] [id number] Director: Bessie Mckinnon MD, Phone: [phone] Lyme Disease IgM Ab 23 kDa Band Absent . [facility] Lyme Disease IgM Ab 39 kDa Band Absent . [facility] Lyme Disease IgM Ab 41 kDa Band Absent . [facility] Platelet mean volume Jaron-Ec ker (Bld) [Entitic vol]Ordered By: Krys Lucero on 10-19-2023 Platelet mean volume (Bld) [Entitic vol] 10.5 fL 6.2-12.0 [facility] RBC Auto (Bld) [#/Vol]Ordere d By: Krys Lucero on 10-19-2023 RBC (Bld) [#/Vol] 4.81 10*6/uL 4.2-5.4 [facility] Serum or plasma calcium serina urement (mass/volume)Ordered By: Krys Lucero on 10-19-2023 Calcium [Mass/Vol] 9.3 mg/dL 8.5-10.1 [facility] Serum or plasma creatinine m easurement (mass/volume)Ordered By: Krys Lucero on 10-19-2023 Creatinine [Mass/Vol] 0.54 mg/dL 0.55-1.02 [facility] Comment on above: The validity of the calculated GFR & GFRAA in patients over 70 years has not been determined. Clinical correlation is essential. Serum or plasma urea nitroge n measurement (mass/volume)Ordered By: Krys Lucero on 10-19-2023 Urea nitrogen [Mass/Vol] 9 mg/dL 7-18 [facility] Thin prep Papanicolaou smear with manual screeningOrdered By: Krys Lcuero on 10-19-2023 Thin prep Papanicolaou smear with manual screening 3.6 g/dL 3.2-5.0 [facility] Thin prep Papanicolaou smear with manual screening 28 U/L 15-37 [facility] Thin prep Papanicolaou smear with manual screening 6 5-[address] [facility] [address] ANGIOGRAM HEAD NECK (STRO KE)on 09-22-2023 CT ANGIOGRAM HEAD NECK (STROKE) EXAMINATION: CT ANGIOGRAM HEAD NECK (STROKE) HISTORY: ORDERING SYSTEM PROVIDED HISTORY: STROKE PROTOCOL, TECHNOLOGIST PROVIDED HISTORY: Illness/Other Reason for exam: stroke protocol Encounter Type: Initial Additional signs and symptoms: . ORDERING SYSTEM PROVIDED DIAGNOSIS CODES: COMPARISON: Noncontrast CT examinations of the head done 09/17/2016 and 08/13/2023 and a MRA examination of the iliamna of [place] done 09/18/2016 FINDINGS: CT head: There is mild generalized cerebral and cerebellar atrophy. There is some mild patchy low-density white matter disease and there are some small areas of volume loss, likely chronic small vessel ischemic changes. No mass, acute intracranial hemorrhage or any abnormal extra-axial fluid collection is seen. There is no mass effect or shift of midline structures. No large vessel infarct or hydrocephalus is evident. The paranasal sinuses, mastoid air cells and middle ear cavities are clear. CTA head neck: The carotid and vertebral arteries are patent. The basilar, posterior cerebral, middle cerebral and anterior cerebral arteries are patent. There are persistent origins of the posterior cerebral arteries. There is no significant stenotic lesions seen or any occlusive disease. There is no obvious aneurysm, dissection or any gross vascular malformation. IMPRESSION: 1. Mild atrophy. 2. Mild patchy low-density white matter disease and some small areas of volume loss, likely chronic small vessel ischemic changes. 3. Negative for acute intracranial process. 4. Negative CTA examination of the head neck for any significant stenoses or occlusive disease. 4. Workstation ID: [id number] Dictated by: GOLDEN BETANCOURT on ThuSep 22, 2023 3:00:11 PM EST Transcribed by: GOLDEN BETANCOURT on ThuSep 22, 2023 3:00:11 PM EST Finalized by: GOLDEN BETANCOURT on ThuSep 22, 2023 3:00:11 PM EST Normal [facility] Comment on above: Order Comment: Injur y/Trauma or Illness?:Illness/Other How long have you had these symptoms (acute/chronic)?:Acute Reason for exam?:stroke protocol Type of Exam?:Initial Additional signs and symptoms?:. Laboratory - Microbiology an d Antimicrobial susceptibilityon 08-18-2023 B. burgdorferi Ab Ql (S) Negative Negative [facility] No Panel Informationon 08-18 Interpretation and review of laboratory results Normal [facility] Assay performed using NoFlo CLIA methodology. [facility] CT CERVICAL SPINE WITHOUT CO NTRASTon 08-13-2023 CT CERVICAL SPINE WITHOUT CONTRAST EXAMINATION: CT CERVICAL SPINE WITHOUT CONTRAST HISTORY: ORDERING SYSTEM PROVIDED HISTORY: multiple falls, TECHNOLOGIST PROVIDED HISTORY: Injury/Trauma Reason for exam: falls Encounter Type: Initial Mechanism of injury: falls ORDERING SYSTEM PROVIDED DIAGNOSIS CODES: COMPARISON: MRI cervical spine 09/19/2016. TECHNIQUE: CT cervical spine without IV contrast. Coronal and sagittal reformations were performed. Dose reduction techniques were achieved by using automated exposure control and/or adjustment of mA and/or kV according to patient size and/or use of iterative reconstruction technique. FINDINGS: Osseous Mineralization: Diffuse osseous demineralization limits evaluation of fine osseous detail. Trauma: No definite fracture, traumatic malalignment, facet dislocation, or discrete epidural hemorrhage. Alignment: Normal craniocervical and cervicothoracic junctions. Vertebral Body Heights: Maintained. Spondylotic Changes: Multilevel spondylotic changes include varying degrees of intervertebral disc height loss, osteophytic ridging, and facet/uncovertebral joint hypertrophy. Soft Tissues: No acute soft tissue abnormalities. Scattered vascular calcifications. Partially visualized right thyroid calcification. Other: Clear visualized lung apices. Airway is patent. IMPRESSION: 1. Given the constraint of osseous demineralization, there is no definite cervical spine fracture or traumatic malalignment. 2. Multilevel spondylotic changes. Workstation ID: [id number] Dictated by: VELMA LOGAN on ThuAug 13, 2023 10:34:55 AM EST Transcribed by: VELMA LOGAN on ThuAug 13, 2023 10:34:55 AM EST Finalized by: VELMA LOGAN on ThuAug 13, 2023 10:34:55 AM EST Normal [facility] Comment on above: Order Comment: Injur y/Trauma or Illness?:Injury/Trauma How long have you had these symptoms (acute/chronic)?:Acute Reason for exam?:falls Type of Exam?:Initial Mechanism of injury?:falls CT HEAD OR BRAIN WITHOUT CON TRASTon 08-13-2023 CT HEAD OR BRAIN WITHOUT CONTRAST EXAMINATION: CT HEAD OR BRAIN WITHOUT CONTRAST HISTORY: multiple falls COMPARISON: MRI brain 09/18/2016. TECHNIQUE: Standard noncontrast brain CT. Dose reduction techniques were achieved by using automated exposure control and/or adjustment of mA and/or kV according to patient size and/or use of iterative reconstruction technique. FINDINGS: No intracranial hemorrhage, extra-axial fluid collection, hydrocephalus, midline shift, or acute large vessel territory infarction. No other mass effect. Patent basal cisterns. Faint minimal periventricular and subcortical hypoattenuation is likely on the basis of chronic microvascular angiopathic changes. Mild symmetric global volume loss without lobar predominance. Slight commensurate ventricular system prominence. No calvarial fracture. Normal soft tissues. Paranasal sinuses and mastoid air cells are well-aerated. IMPRESSION: No acute intracranial process. Workstation ID: [id number] Dictated by: VELMA LOGAN on ThuAug 13, 2023 10:22:40 AM EST Transcribed by: VELMA LOGAN on ThuAug 13, 2023 10:22:40 AM EST Finalized by: VELMA LOGAN on ThuAug 13, 2023 10:22:40 AM EST Normal [facility] Comment on above: Order Comment: Injur y/Trauma or Illness?:Injury/Trauma How long have you had these symptoms (acute/chronic)?:Acute Reason for exam?:falls Type of Exam?:Initial Mechanism of injury?:falls CT MAXILLOFACIAL WITHOUT CON TRASTon 08-13-2023 CT MAXILLOFACIAL WITHOUT CONTRAST EXAMINATION: CT MAXILLOFACIAL WITHOUT CONTRAST DATE: 08/13/2023. HISTORY: falls, right face pain Injury/Trauma or Illness?:Injury/Tra monica How long have you had these symptoms (acute/chronic)?:Ac miguel ángel Reason for exam?:falls Type of Exam?:Initial Mechanism of injury?:falls COMPARISON: CT brain from [place] on 08/13/2023, [place] CT brain from 09/17/2016, and [place] CT brain from 10/20/2012. Brain MRI/MRA from [place] 09/18/2016. TECHNIQUE: Noncontrast maxillofacial CT was performed. FINDINGS: There is artifact related to metallic dental work. The zygomatic arches, pterygoid plates, mandible, and maxilla all appear intact. No dislocation of the temporomandibular joint. Nasal bones are intact. Paranasal sinuses are relatively free of inflammatory change. Postoperative changes in the globes are shown. Left lateral convex bulging of the cavernous sinus is redemonstrated. This has been shown to be secondary to tortuosity of the internal carotid artery. Associated calcification is present. No suspicious soft tissue masses are noted. Degenerative changes in the cervical spine are shown. Craniocervical junction relationships are well maintained. IMPRESSION: 1. No acute maxillofacial fracture. 2. Postoperative changes in the globes are shown. PATRICIA/jw Workstation ID: [id number] Dictated by: RAMIRO VAUGHAN on ThuAug 13, 2023 10:30:56 AM EST Transcribed by: TOMMY BELTRAN on ThuAug 13, 2023 10:58:35 AM EST Finalized by: RAMIRO VAUGHAN on ThuAug 13, 2023 1:02:21 PM EST Normal [facility] Comment on above: Order Comment: Injur y/Trauma or Illness?:Injury/Trauma How long have you had these symptoms (acute/chronic)?:Acute Reason for exam?:falls Type of Exam?:Initial Mechanism of injury?:falls XR ABDOMEN /KUB/FLAT PLATE/1 VIEWon 06-02-2023 XR ABDOMEN /KUB/FLAT PLATE/1 VIEW EXAMINATION: XR ABDOMEN /KUB/FLAT PLATE/1 VIEW 06/02/2023 9:03 am HISTORY: ORDERING SYSTEM PROVIDED HISTORY: Calculus of kidney, TECHNOLOGIST PROVIDED HISTORY: Illness/Other Reason for exam: Calculus of kidney Cancer History: no Surgery, RadiationHistory: bilat renal stones Encounter Type: Initial Additional signs and symptoms: pt states left kidney ORDERING SYSTEM PROVIDED DIAGNOSIS CODES: N20.0 Calculus of kidney COMPARISON: 12/02/2022 FINDINGS: Intestinal gas pattern is normal. No free intraperitoneal air. No change in the 2 mm left lower pole calculus. Bones are intact. IMPRESSION: 1. No change in the 2 mm left lower pole calculus. Workstation ID: [id number] Dictated by: CHEIKH KULKARNI on ThuJun 03, 2023 3:17:42 AM EDT Transcribed by: CHEIKH KULKARNI on ThuJun 03, 2023 3:17:42 AM EDT Finalized by: CHEIKH KULKARNI on ThuJun 03, 2023 3:17:42 AM EDT Normal [facility] Comment on above: Order Comment: Injur y/Trauma or Illness?:Illness/Other How long have you had these symptoms (acute/chronic)?:Acute Reason for exam?:Calculus of kidney History of cancer?:no Surgeries, chemotherapy, or radiation?:bilat renal stones Type of Exam?:Initial Additional signs and symptoms?:pt states left kidney POC Urinalysis Dipstick,Auto UCOrdered By: Rosalie Cortes on 11-12-2022 Bilirubin Ql (U) Negative Negative [facility] th Clarity, UA Clear Clear [facility] Color (U) Yellow Yellow, Light Yellow, Dark Yellow [facility] Glucose Ql (U) Negative Normal, Negative mg/dL [facility] Hemoglobin Ql (U) Trace-intact Abnormal Negative [facility] ealt Interpretation and review of laboratory results Abnormal [facility] Ketones Ql (U) Negative Negative mg/dL [facility] Leukocyte esterase Test strip Ql (U) Trace Abnormal Negative [facility] Nitrite Ql (U) Negative Negative [facility] pH (U) 5.5 [pH] 5.0 - 7.0 [facility] Protein Ql (U) Negative Negative mg/dL [facility] Specific gravity (U) [Rel density] 1.020 1.005 - 1.025 [facility] Urobilinogen Qn (U) 0.2 mg/dL <2.0, 0. 2, Normal, Negative, 1.0, 2.0, <1.0 [facility] POC Urinalysis Dipstick, Aut oon 10-15-2021 Bilirubin Ql (U) Negative Negative [facility] Glucose Ql (U) Negative Normal, Negative mg/dL [facility] Hemoglobin Ql (U) Trace-lysed Abnormal Negative [facility] alth Interpretation and review of laboratory results Abnormal [facility] Ketones Ql (U) Negative Negative mg/dL [facility] Leukocyte esterase Test strip Ql (U) Small Abnormal Negative [facility] Nitrite Ql (U) Negative Negative [facility] pH (U) 5.0 [pH] [facility] Protein Ql (U) Negative Negative mg/dL [facility] Specific gravity (U) [Rel density] 1.030 Abnormal [facility] Urobilinogen Qn (U) 0.2 mg/dL <2.0, 0. 2, Normal, Negative, 1.0, 2.0, <1.0 [facility] POC Urinalysis Dipstick, Aut oOrdered By: Marlin Ortega on 07-30-2021 Bilirubin Ql (U) Negative Negative [facility] Glucose Ql (U) Negative Normal, Negative mg/dL [facility] Hemoglobin Ql (U) Trace-intact Abnormal Negative [facility] ealth Interpretation and review of laboratory results Abnormal [facility] Ketones Ql (U) Negative Negative mg/dL [facility] Leukocyte esterase Test strip Ql (U) Small Abnormal Negative [facility] Nitrite Ql (U) Negative Negative [facility] pH (U) 7.0 [pH] [facility] Protein Ql (U) Negative Negative mg/dL [facility] Specific gravity (U) [Rel density] 1.025 [facility] Urobilinogen Qn (U) 1.0 mg/dL <2.0, 0. 2, Normal, Negative, 1.0, 2.0, <1.0 [facility] Otheron 10-26-2020 Bilirubin Ql (U) Negative Negative [facility] th Clarity, UA Clear Clear [facility] Hemoglobin Ql (U) Small Abnormal Negative [facility] Interpretation and review of laboratory results Abnormal [facility] Nitrite Ql (U) Positive Abnormal Negative [facility] pH (U) 5.5 [pH] [facility] Protein Ql (U) Negative Negative mg/dL [facility] alth Urobilinogen Qn (U) 2.0 mg/dL <2.0, 0. 2, Normal, Negative, 1.0, 2.0, <1.0 [facility] Urinalysison 10-26-2020 Color (U) Yellow Yellow, Light Yellow, Dark Yellow [facility] Glucose Ql (U) Negative Normal, Negative mg/dL [facility] Ketones Ql (U) Negative Negative mg/dL [facility] alth Leukocyte esterase Test strip Ql (U) Moderate Abnormal Negative [facility] Specific gravity (U) [Rel density] 1.025 [facility] Comprehensive Metabolic Pane rehan 11-28-2019 Albumin [Mass/Vol] 4.3 g/dL 3.2 - 5.2 g/dL [facility] ALP [Catalytic activity/Vol] 162 U/L High 40 - 150 U/L [facility] ALT [Catalytic activity/Vol] 32 U/L 0 - 40 U/L [facility] Anion gap [Moles/Vol] 18 mmol/L 10 - 20 mmol/L [facility] AST [Catalytic activity/Vol] 25 U/L 0 - 45 U/L [facility] Bilirubin [Mass/Vol] 0.5 mg/dL 0 - 1.3 mg/dL [facility] Calcium [Mass/Vol] 9.8 mg/dL 8.4 - 10. 2 mg/dL [facility] Chloride [Moles/Vol] 106 mmol/L 98 - 10 8 mmol/L [facility] Creatinine [Mass/Vol] 0.49 mg/dL Low 0.60 - 1.20 [facility] GFR/1.73 sq M predicted among non-blacks MDRD (S/P/Bld) [Vol rate/Area] The eGFR should be used for monitoring renal function only and not for medication dosing. [facility] GFR/1.73 sq M.predicted CKD-EPI (S/P/Bld) [Vol rate/Area] 103 >=60 mL/min/1.73 m2 [facility] Glucose [Mass/Vol] 118 mg/dL High 65 - 99 mg/dL [facility] HCO3 [Moles/Vol] 23 mmol/L 21 - 32 mmol/L [facility] Potassium [Moles/Vol] 4.1 mmol/L 3.5 - 5.1 mmol/L [facility] Protein [Mass/Vol] 6.5 g/dL 6 - 8 g/dL [facility] alth Sodium [Moles/Vol] 143 mmol/L 135 - 145 mmol/L [facility] Urea nitrogen [Mass/Vol] 8 mg/dL 8 - 25 mg/dL [facility] Urea nitrogen/Creatinine [Mass ratio] 16.3 mg/mg [facility] Lipid Panelon 11-28-2019 Cholesterol [Mass/Vol] 219 mg/dL High 100 - 199 mg/dL [facility] Cholesterol in HDL [Mass/Vol] 59 mg/dL 40 - 59 [facility] Cholesterol in LDL [Mass/Vol] 141 mg/dL High 10 - 130 mg/dL [facility] Comment on above: National Cholesterol Education Program Guidelines: LDL Cholesterol Optimal: <100 mg/dL Near Optimal/above Optimal: 100-129 mg/dL Borderline High: 130-159 mg/dL High: 160-189 mg/dL Very High: greater than or equal to 190 mg/dL Cholesterol non HDL [Mass/Vol] 160 mg/dL [facility] Comment on above: National Cholesterol Education Program Guidelines: NON HDL Cholesterol Desirable: <130 mg/dL Borderline High: 130-159 mg/dL High: 160-189 mg/dL Very High: > or = 190 mg/dL Cholesterol.total/Gali sterol in HDL [Mass ratio] 3.7 {ratio} ratio [facility] Comment on above: Female Cholesterol/H DL Ratio: Average risk: 4.4 1/2 average risk: 3.3 2 x average risk: 7.1 Triglyceride [Mass/Vol] 94 mg/dL 30 - 150 mg/ dL [facility] Otheron 11-28-2019 Interpretation and review of laboratory results Abnormal [facility] US Abdomen Completeon 2017 Cholesterol 1. Cholelithiasis. 2. Left nephrolithiasis and renal cysts. 3. Echogenic liver, suggestive of diffuse fatty infiltration, with a 4.94 cm hepatic cyst. DPR/jcw Workstation ID: [id number] Invalid Interpretation Code [facility] US Abdomen Complete EXAMINATION: US ABDOMEN COMPLETE HISTORY: ORDERING SYSTEM PROVIDED HISTORY: Nonspecific abnormal results of liver function study, TECHNOLOGIST PROVIDED HISTORY: Reason for exam: increased lft's Illness/Other Cancer History: no Surgery, RadiationHistory: bilat renal stones Encounter Type: Initial Additional signs and symptoms: no ORDERING SYSTEM PROVIDED DIAGNOSIS CODES: R94.5 Nonspecific abnormal results of liver function study COMPARISON: CT abdomen and pelvis- March 20, 2016. FINDINGS: Ultrasound examination of the abdomen demonstrates diffuse increased echogenicity to the liver, with a subcapsular 4.94 cm cyst located anteriorly within the right lobe. There is echogenic shadowing from the anterior wall of the gallbladder consistent with the lumen filled with stones ([id number]-[id number]-[id number] sign). The common bile duct measured 3.98 mm in diameter. No sonographic Ortega sign elicited. The spleen is near homogeneous, measuring 10.49 cm in length. No ascites. Both kidneys have normal corticomedullary differentiation without pelvicaliectasis. The right kidney measures 10.72 cm in length, with a cortex thickness of 9.17 cm. The left kidney measures 12.69 cm in length with a cortex thickness of 1.58 cm. Within the central aspect of the left kidney, there is a 2.69 cm cyst; and at the lower pole, there is a 2.90 cm cyst. There is also a 5.7 mm echogenic shadowing structure at the lower pole of the left kidney consistent with calculus. The pancreas is without an intrinsic mass or duct dilatation. The limited view of the IVC is unremarkable. The aorta is nonaneurysmal, measuring 2.03 cm in the mid region. Invalid Interpretation Code [facility] US Abdomen Complete [facility] 11:21 AM EDT EXAMINATION: US ABDOMEN COMPLETE HISTORY: ORDERING SYSTEM PROVIDED HISTORY: Nonspecific abnormal results of liver function study, TECHNOLOGIST PROVIDED HISTORY: Reason for exam: increased lft's Illness/Other Cancer History: no Surgery, RadiationHistory: bilat renal stones Encounter Type: Initial Additional signs and symptoms: no ORDERING SYSTEM PROVIDED DIAGNOSIS CODES: R94.5 Nonspecific abnormal results of liver function study COMPARISON: CT abdomen and pelvis- March 20, 2016. FINDINGS: Ultrasound examination of the abdomen demonstrates diffuse increased echogenicity to the liver, with a subcapsular 4.94 cm cyst located anteriorly within the right lobe. There is echogenic shadowing from the anterior wall of the gallbladder consistent with the lumen filled with stones ([id number] sign). The common bile duct measured 3.98 mm in diameter. No sonographic Rotega sign elicited. The spleen is near homogeneous, measuring 10.49 cm in length. No ascites. Both kidneys have normal corticomedullary differentiation without pelvicaliectasis. The right kidney measures 10.72 cm in length, with a cortex thickness of 9.17 cm. The left kidney measures 12.69 cm in length with a cortex thickness of 1.58 cm. Within the central aspect of the left kidney, there is a 2.69 cm cyst; and at the lower pole, there is a 2.90 cm cyst. There is also a 5.7 mm echogenic shadowing structure at the lower pole of the left kidney consistent with calculus. The pancreas is without an intrinsic mass or duct dilatation. The limited view of the IVC is unremarkable. The aorta is nonaneurysmal, measuring 2.03 cm in the mid region. IMPRESSION: 1. Cholelithiasis. 2. Left nephrolithiasis and renal cysts. 3. Echogenic liver, suggestive of diffuse fatty infiltration, with a 4.94 cm hepatic cyst. DPR/jcw Workstation ID: [id number] Invalid Interpretation Code [facility] Vital Signs Date Time Vital Sign Value Performing Clinician Facility 04-03-2025 08:54-0400 Body height 162.1 cm Bhakti Harley [employer] Work Phone: [facility] 04-03-2025 08:54-0400 Body mass index (BMI) [Ratio] 32.8 kg/m2 Bhaktibrody Harley [employer] Work Phone: [facility] 04-03-2025 08:54-0400 Body temperature 98.4 [degF] Bhakti Harley [employer] Work Phone: [facility] 04-03-2025 08:54-0400 Body weight 86.18 kg Bhaktibrody Harley [employer] Work Phone: [facility] 04-03-2025 08:54-0400 Diastolic blood pressure 80 mm[Hg] Bhakti Harley RE[employer] POLISHER-INTERNAL MEDICINE NURSE PRACTITIONER Work Phone: [facility] 04-03-2025 08:54-0400 Heart rate 94 /min Bhakti Harley [employer]ED POLISHER-INTERNAL MEDICINE NURSE PRACTITIONER Work Phone: [facility] 04-03-2025 08:54-0400 Respiratory rate 18 /min Bhakti Harley RE[employer] POLISHER-INTERNAL MEDICINE NURSE PRACTITIONER Work Phone: [facility] 04-03-2025 08:54-0400 Systolic blood pressure 118 mm[Hg] Bhakti Harley [employer] POL[employer]ER-INTERNAL MEDICINE NURSE PRACTITIONER Work Phone: [facility] 03-07-2025 16:26-0400 Body temperature 98.1 [degF] Chikis Singh MD Work Phone: [facility] 03-07-2025 16:26-0400 Diastolic blood pressure 66 mm[Hg] Chikis Singh MD Work Phone: [facility] 03-07-2025 16:26-0400 Heart rate 92 /min Chikis Singh MD Work Phone: [facility] 03-07-2025 16:26-0400 Respiratory rate 18 /min Chikis Singh MD Work Phone: [facility] 03-07-2025 16:26-0400 SaO2% (BldA) [Mass fraction] 95 % Chikis Singh MD Work Phone: [facility] 03-07-2025 16:26-0400 Systolic blood pressure 115 mm[Hg] Chikis Singh MD Work Phone: [facility] 03-06-2025 12:56-0400 Body height 167.6 cm Chikis Singh MD Work Phone: [facility] 03-06-2025 09:56-0400 Body temperature 98.71 [degF] Kerfala Camila PA-C Work Phone: [facility] 03-06-2025 09:56-0400 Diastolic blood pressure 74 mm[Hg] Jaimeelillian Camila PA-C Work Phone: [facility] 03-06-2025 09:56-0400 Heart rate 101 /min Erick Camila PA-C Work Phone: [facility] 03-06-2025 09:56-0400 Respiratory rate 18 /min Erick Camila PA-C Work Phone: [facility] 03-06-2025 09:56-0400 SaO2% (BldA) [Mass fraction] 99 % Erick Stewartfana PA-C Work Phone: [facility] 03-06-2025 09:56-0400 Systolic blood pressure 135 mm[Hg] Dionereilly StewartCamila PA-C Work Phone: [facility] 01-25-2025 16:28-0400 Body temperature 98.2 [degF] Lynda Vega [employer] POL[employer]ER-INTERNAL MEDICINE NURSE PRACTITIONER Work Phone: [facility] 01-25-2025 16:28-0400 Diastolic blood pressure 82 mm[Hg] Lynda Vega RE[employer] POL[employer]ER-INTERNAL MEDICINE NURSE PRACTITIONER Work Phone: [facility] 01-25-2025 16:28-0400 Heart rate 113 /min Lynda Vega RE[employer] POL[employer]ER-INTERNAL MEDICINE NURSE PRACTITIONER Work Phone: [facility] 01-25-2025 16:28-0400 Respiratory rate 18 /min Lynda Vega REED POLISHER-INTERNAL MEDICINE NURSE PRACTITIONER Work Phone: [facility] 01-25-2025 16:28-0400 SaO2% (BldA) [Mass fraction] 96 % Lynda Vega REED POL[employer]ER-INTERNAL MEDICINE NURSE PRACTITIONER Work Phone: [facility] 01-25-2025 16:28-0400 Systolic blood pressure 134 mm[Hg] Lynda Vega REED POLISHER-INTERNAL MEDICINE NURSE PRACTITIONER Work Phone: [facility] 12-18-2024 04:00-0400 Diastolic blood pressure 79 mm[Hg] No Physician [facility] 12-18-2024 04:00-0400 Heart rate 75 /min No Physician [facility] 12-18-2024 04:00-0400 Respiratory rate 17 /min No Physician [facility] 12-18-2024 04:00-0400 SaO2% (BldA) [Mass fraction] 99 % No Physician [facility] 12-18-2024 04:00-0400 Systolic blood pressure 147 mm[Hg] No Physician [facility] 12-18-2024 00:24-0400 Body temperature 98.49 [degF] No Physician [facility] 12-18-2024 00:15-0400 Body height 167.6 cm No Physician [facility] 12-18-2024 00:15-0400 Body mass index (BMI) [Ratio] 46.32 kg/m2 No Physician [facility] 12-18-2024 00:15-0400 Body weight 130.18 kg No Physician [facility] 11-15-2024 13:14-0500 Body height 167.6 cm Adrian Jean REED POL[employer]ER-INTERNAL MEDICINE NURSE PRACTITIONER Work Phone: [facility] 11-15-2024 13:14-0500 Body mass index (BMI) [Ratio] 30.67 kg/m2 Adrian Jean REED POLISHER-INTERNAL MEDICINE NURSE PRACTITIONER Work Phone: [facility] 11-15-2024 13:14-0500 Body weight 86.18 kg Adrian Jean REED POLISHER-INTERNAL MEDICINE NURSE PRACTITIONER Work Phone: [facility] 11-15-2024 13:14-0500 Heart rate 103 /min Adrian Jean REED POLISHER-INTERNAL MEDICINE NURSE PRACTITIONER Work Phone: [facility] 11-15-2024 13:14-0500 SaO2% (BldA) [Mass fraction] 97 % Adrian Jean REED POLISHER-INTERNAL MEDICINE NURSE PRACTITIONER Work Phone: [facility] 10-25-2024 13:41-0500 Body height 167.6 cm Adrian Jean REED POLISHER-INTERNAL MEDICINE NURSE PRACTITIONER Work Phone: [facility] 10-25-2024 13:41-0500 Body mass index (BMI) [Ratio] 30.67 kg/m2 Adrian Jean REED POLISHER-INTERNAL MEDICINE NURSE PRACTITIONER Work Phone: [facility] 10-25-2024 13:41-0500 Body weight 86.18 kg Adrian Jean REED POLISHER-INTERNAL MEDICINE NURSE PRACTITIONER Work Phone: [facility] 10-25-2024 13:41-0500 Heart rate 128 /min Adrian Jean REED POLISHER-INTERNAL MEDICINE NURSE PRACTITIONER Work Phone: [facility] 10-25-2024 13:41-0500 SaO2% (BldA) [Mass fraction] 96 % Adrian Jean REED POLISHER-INTERNAL MEDICINE NURSE PRACTITIONER Work Phone: [facility] 10-12-2024 15:21-0500 Body height 167.64 cm Jori Gittins DO [facility] 10-12-2024 15:21-0500 Body mass index (BMI) [Ratio] 29.86 kg/m2 Jori Gittins DO [facility] 10-12-2024 15:21-0500 Body weight 83.92 kg Jori Gittins DO [facility] 09-30-2024 14:02-0500 Body height 167.64 cm Jori Gittins DO [facility] 09-30-2024 14:02-0500 Body mass index (BMI) [Ratio] 30.18 kg/m2 Jori Gittins DO [facility] 09-30-2024 14:02-0500 Body weight 84.82 kg Jori Gittins DO [facility] 09-28-2024 19:00-0500 Heart rate 102 /min Óscar Chase DO Work Phone: [employer] [facility] 09-28-2024 19:00-0500 SaO2% (BldA) [Mass fraction] 100 % Óscar Chase DO Work Phone: [facility] 09-28-2024 17:43-0500 Body height 167.6 cm Óscar Chase DO Work Phone: [facility] 09-28-2024 17:43-0500 Body mass index (BMI) [Ratio] 30.18 kg/m2 Óscar Chase DO Work Phone: [facility] 09-28-2024 17:43-0500 Body weight 84.82 kg Óscar Chase DO Work Phone: [facility] 09-28-2024 17:42-0500 Body temperature 97.81 [degF] Óscar Chase DO Work Phone: [facility] 09-28-2024 17:42-0500 Respiratory rate 18 /min Óscar Chase DO Work Phone: [facility] 09-28-2024 17:40-0500 Diastolic blood pressure 97 mm[Hg] Óscar Chase DO Work Phone: [facility] 09-28-2024 17:40-0500 Systolic blood pressure 151 mm[Hg] Óscar Chase DO Work Phone: [facility] 09-27-2024 11:53-0500 Body mass index (BMI) [Ratio] 30.51 kg/m2 Adrian Jean REED POLISHER-INTERNAL MEDICINE NURSE PRACTITIONER Work Phone: [facility] 09-27-2024 11:53-0500 Body weight 85.73 kg Adrian Jean REED POLISHER-INTERNAL MEDICINE NURSE PRACTITIONER Work Phone: [facility] 09-27-2024 11:53-0500 Heart rate 100 /min Adrian Jean REED POLISHER-INTERNAL MEDICINE NURSE PRACTITIONER Work Phone: [facility] 09-27-2024 11:53-0500 SaO2% (BldA) [Mass fraction] 98 % Adrian Jean REED POLISHER-INTERNAL MEDICINE NURSE PRACTITIONER Work Phone: [facility] 09-15-2024 10:43-0500 Body temperature 98.1 [degF] Rhina Ramirez DO MPH Work Phone: [facility] 09-15-2024 10:43-0500 Diastolic blood pressure 96 mm[Hg] Rhina Ramirez DO MPH Work Phone: [facility] 09-15-2024 10:43-0500 Heart rate 86 /min Rhina Ramirez DO MPH Work Phone: [facility] 09-15-2024 10:43-0500 Respiratory rate 16 /min Rhina Ramirez DO MPH Work Phone: [facility] 09-15-2024 10:43-0500 SaO2% (BldA) [Mass fraction] 95 % Rhina Ramirez DO MPH Work Phone: [facility] 09-15-2024 10:43-0500 Systolic blood pressure 178 mm[Hg] Rhina Ramirez DO MPH Work Phone: [facility] 09-05-2024 10:22-0500 Body temperature 97.5 [degF] [facility] DO Work Phone: [facility] 09-05-2024 10:22-0500 Diastolic blood pressure 85 mm[Hg] Kita [place] DO Work Phone: [facility] 09-05-2024 10:22-0500 Heart rate 100 /min Kita [place] DO Work Phone: [facility] 09-05-2024 10:22-0500 Respiratory rate 18 /min Kita [place] DO Work Phone: [facility] 09-05-2024 10:22-0500 SaO2% (BldA) [Mass fraction] 96 % Kita [place] DO Work Phone: [facility] 09-05-2024 10:22-0500 Systolic blood pressure 134 mm[Hg] Kita Garza DO Work Phone: [facility] 08-30-2024 15:32-0500 Body height 167.6 cm Ruddy Pino MD Work Phone: [facility] 08-30-2024 15:32-0500 Body temperature 97.81 [degF] Ruddy Pino MD Work Phone: [facility] 08-30-2024 15:32-0500 Diastolic blood pressure 85 mm[Hg] Ruddy Pino MD Work Phone: [facility] 08-30-2024 15:32-0500 Heart rate 90 /min Ruddy Pino MD Work Phone: [facility] 08-30-2024 15:32-0500 Respiratory rate 16 /min Ruddy Pino MD Work Phone: [facility] 08-30-2024 15:32-0500 SaO2% (BldA) [Mass fraction] 95 % Ruddy Pino MD Work Phone: [facility] 08-30-2024 15:32-0500 Systolic blood pressure 150 mm[Hg] Ruddy Pino MD Work Phone: [facility] 08-30-2024 13:43-0500 Body temperature 99.1 [degF] Jenny Prather MD Work Phone: [facility] 08-30-2024 13:43-0500 Diastolic blood pressure 90 mm[Hg] Jenny Prather MD Work Phone: [facility] 08-30-2024 13:43-0500 Heart rate 112 /min Jenny Prather MD Work Phone: [facility] 08-30-2024 13:43-0500 Respiratory rate 18 /min Jenny Prather MD Work Phone: [facility] 08-30-2024 13:43-0500 SaO2% (BldA) [Mass fraction] 96 % Jenny Prather MD Work Phone: [facility] 08-30-2024 13:43-0500 Systolic blood pressure 134 mm[Hg] Jenny Prather MD Work Phone: [facility] 08-08-2024 16:39-0500 Diastolic blood pressure 82 mm[Hg] Dominique Alcantar PA-C Work Phone: [facility] 08-08-2024 16:39-0500 Systolic blood pressure 127 mm[Hg] Dominique Alcantar PA-C Work Phone: [facility] 08-08-2024 16:09-0500 Body height 167.6 cm Dominique Alcantar PA-C Work Phone: [facility] 08-08-2024 16:09-0500 Body mass index (BMI) [Ratio] 30.46 kg/m2 Dominique Alcantar PA-C Work Phone: [facility] 08-08-2024 16:09-0500 Body weight 85.59 kg Dominique Alcantar PA-C Work Phone: [facility] 08-08-2024 16:09-0500 Heart rate 123 /min Dominique Alcantar PA-C Work Phone: [facility] 08-08-2024 16:09-0500 SaO2% (BldA) [Mass fraction] 95 % Dominique Alcantar PA-C Work Phone: [facility] 08-02-2024 12:53-0500 Body height 167.6 cm Dominique Alcantar PA-C Work Phone: [facility] 08-02-2024 12:53-0500 Body mass index (BMI) [Ratio] 29.89 kg/m2 Dominique Alcantar PA-C Work Phone: [facility] 08-02-2024 12:53-0500 Body weight 84.01 kg Dominique Alcantar PA-C Work Phone: [facility] 08-02-2024 12:53-0500 Diastolic blood pressure 80 mm[Hg] Dominique Alcantar PA-C Work Phone: [facility] 08-02-2024 12:53-0500 Heart rate 100 /min Dominique Alcantar PA-C Work Phone: [facility] 08-02-2024 12:53-0500 SaO2% (BldA) [Mass fraction] 97 % Dominique Alcantar PA-C Work Phone: [facility] 08-02-2024 12:53-0500 Systolic blood pressure 123 mm[Hg] Dominique Alcantar PA-C Work Phone: [facility] 07-20-2024 15:39-0500 Body temperature 97.5 [degF] Allison Allen MD Work Phone: [facility] 07-20-2024 15:39-0500 Diastolic blood pressure 92 mm[Hg] Allison Allen MD Work Phone: [facility] 07-20-2024 15:39-0500 Heart rate 95 /min Allison Allen MD Work Phone: [facility] 07-20-2024 15:39-0500 Respiratory rate 16 /min Allison Allen MD Work Phone: [facility] 07-20-2024 15:39-0500 SaO2% (BldA) [Mass fraction] 96 % Allison Allen MD Work Phone: [facility] 07-20-2024 15:39-0500 Systolic blood pressure 145 mm[Hg] Allison Allen MD Work Phone: [facility] 07-16-2024 10:06-0400 Body temperature 97.7 [degF] Allison Allen MD Work Phone: [facility] 07-16-2024 10:06-0400 Diastolic blood pressure 105 mm[Hg] Allison Allen MD Work Phone: [facility] 07-16-2024 10:06-0400 Heart rate 98 /min Allison Allen MD Work Phone: [facility] 07-16-2024 10:06-0400 Respiratory rate 16 /min Allison Allen MD Work Phone: [facility] 07-16-2024 10:06-0400 SaO2% (BldA) [Mass fraction] 95 % Allison Allen MD Work Phone: [facility] 07-16-2024 10:06-0400 Systolic blood pressure 162 mm[Hg] Allison Allen MD Work Phone: [facility] 05-24-2024 13:57-0400 Body mass index (BMI) [Ratio] 30.51 kg/m2 Dominique Alcantar PA-C Work Phone: [facility] 05-24-2024 13:57-0400 Body weight 85.73 kg Dominique Alcantar PA-C Work Phone: [facility] 05-24-2024 13:57-0400 Diastolic blood pressure 84 mm[Hg] Dominique Alcantar PA-C Work Phone: [facility] 05-24-2024 13:57-0400 Heart rate 94 /min Dominique Alcantar PA-C Work Phone: [facility] 05-24-2024 13:57-0400 SaO2% (BldA) [Mass fraction] 94 % Dominique Alcantar PA-C Work Phone: [facility] 05-24-2024 13:57-0400 Systolic blood pressure 130 mm[Hg] Dominique Alcantar PA-C Work Phone: [facility] 05-03-2024 10:00-0400 Body temperature 98.29 [degF] Marixa Brown RN [facility] 05-03-2024 10:00-0400 Diastolic blood pressure 80 mm[Hg] Marixa Brown RN [facility] 05-03-2024 10:00-0400 Heart rate 68 /min Marixa Brown RN [facility] 05-03-2024 10:00-0400 Respiratory rate 16 /min Marixa Brown RN [facility] 05-03-2024 10:00-0400 Systolic blood pressure 130 mm[Hg] Marixa Brown RN [facility] 04-29-2024 09:59-0400 Body temperature 98.1 [degF] Patricia Bass OT [facility] 04-29-2024 09:59-0400 Diastolic blood pressure 87 mm[Hg] Patricia Bass OT [facility] 04-29-2024 09:59-0400 Heart rate 93 /min Patricia Bass OT [facility] 04-29-2024 09:59-0400 Respiratory rate 17 /min Patricia Bass OT [facility] 04-29-2024 09:59-0400 SaO2% (BldA) [Mass fraction] 94 % Patricia Bass [facility] 04-29-2024 09:59-0400 Systolic blood pressure 109 mm[Hg] Patricia Bass OT [facility] 04-28-2024 15:58-0400 Body height 170.2 cm Iveth Alves PT [facility] 04-28-2024 15:58-0400 Body mass index (BMI) [Ratio] 29.13 kg/m2 Iveth Alves PT [facility] 04-28-2024 15:58-0400 Body temperature 97.9 [degF] Iveth Alves PT [facility] 04-28-2024 15:58-0400 Body weight 84.37 kg Iveth Alves PT [facility] 04-28-2024 15:58-0400 Diastolic blood pressure 78 mm[Hg] Iveth Lambkins PT [facility] 04-28-2024 15:58-0400 Heart rate 103 /min Iveth Lambkins PT [facility] 04-28-2024 15:58-0400 Respiratory rate 16 /min Iveth Alves PT [facility] 04-28-2024 15:58-0400 SaO2% (BldA) [Mass fraction] 97 % Iveth Alves PT [facility] 04-28-2024 15:58-0400 Systolic blood pressure 116 mm[Hg] Iveth Alves PT [facility] 04-26-2024 10:09-0400 Body temperature 98.01 [degF] Marixa Jluissandy RN [facility] 04-26-2024 10:09-0400 Diastolic blood pressure 80 mm[Hg] Marixa Borwn RN [facility] 04-26-2024 10:09-0400 Heart rate 90 /min Marixa Jluissandy RN [facility] 04-26-2024 10:09-0400 Respiratory rate 16 /min Marixazari Brown RN [facility] 04-26-2024 10:09-0400 SaO2% (BldA) [Mass fraction] 97 % Marixazari Gravesyumiko RN [facility] 04-26-2024 10:09-0400 Systolic blood pressure 130 mm[Hg] Marixa Jluissandy RN [facility] 04-19-2024 15:35-0400 Body temperature 98.01 [degF] Minda Floyd RN [facility] 04-19-2024 15:35-0400 Diastolic blood pressure 74 mm[Hg] Minda Floyd RN [facility] 04-19-2024 15:35-0400 Heart rate 80 /min Minda Floyd RN [facility] 04-19-2024 15:35-0400 Respiratory rate 16 /min Minda Floyd RN [facility] 04-19-2024 15:35-0400 SaO2% (BldA) [Mass fraction] 97 % Minda Floyd RN [facility] 04-19-2024 15:35-0400 Systolic blood pressure 118 mm[Hg] Minda Floyd RN [facility] 04-18-2024 13:45-0400 Body temperature 98.01 [degF] Marixa Jluissandy RN [facility] 04-18-2024 13:45-0400 Diastolic blood pressure 80 mm[Hg] Marixa Kevin RN [facility] 04-18-2024 13:45-0400 Heart rate 100 /min Marixa Bazzisandy RN [facility] 04-18-2024 13:45-0400 Respiratory rate 16 /min Marixa Brown RN [facility] 04-18-2024 13:45-0400 SaO2% (BldA) [Mass fraction] 97 % Marixa Brown RN [facility] 04-18-2024 13:45-0400 Systolic blood pressure 110 mm[Hg] Marixa Gravesyumiko GOYAL [facility] 04-17-2024 10:30-0400 Body temperature 97.81 [degF] Mindavince Floyd JYOTSNA [facility] 04-17-2024 10:30-0400 Diastolic blood pressure 70 mm[Hg] Mindavince Floyd JYOTSNA [facility] 04-17-2024 10:30-0400 Heart rate 88 /min Mindavince Floyd JYOTSNA [facility] 04-17-2024 10:30-0400 Respiratory rate 18 /min Minda Floyd RN [facility] 04-17-2024 10:30-0400 SaO2% (BldA) [Mass fraction] 97 % Minda Everett JYOTSNA [facility] 04-17-2024 10:30-0400 Systolic blood pressure 126 mm[Hg] Minda Everett JYOTSNA [facility] 04-16-2024 10:52-0400 Body height 167.6 cm Minda Everett JYOTSNA [facility] 04-16-2024 10:52-0400 Body mass index (BMI) [Ratio] 30.02 kg/m2 Mindavince Floyd JYOTSNA [facility] 04-16-2024 10:52-0400 Body temperature 97.81 [degF] Minda Floyd JYOTSNA [facility] 04-16-2024 10:52-0400 Body weight 84.37 kg Minda Floyd JYOTSNA [facility] 04-16-2024 10:52-0400 Diastolic blood pressure 70 mm[Hg] Minda Marktrupti GOYAL [facility] 04-16-2024 10:52-0400 Heart rate 74 /min Mindavince Floyd [facility] 04-16-2024 10:52-0400 Respiratory rate 18 /min Minda Floyd [facility] 04-16-2024 10:52-0400 SaO2% (BldA) [Mass fraction] 98 % Minda Floyd [facility] 04-16-2024 10:52-0400 Systolic blood pressure 122 mm[Hg] Minda Everett JYOTSNA [facility] 02-15-2024 12:56-0400 Body mass index (BMI) [Ratio] 31.95 kg/m2 Sai Marie MD Work Phone: [facility] 02-15-2024 12:56-0400 Body temperature 97.9 [degF] Sai Marie MD Work Phone: [facility] 02-15-2024 12:56-0400 Body weight 87.09 kg Sai Marie MD Work Phone: [facility] 02-15-2024 12:56-0400 Diastolic blood pressure 86 mm[Hg] Sai Marie MD Work Phone: [facility] 02-15-2024 12:56-0400 Heart rate 85 /min Sai Marie MD Work Phone: [facility] 02-15-2024 12:56-0400 Respiratory rate 12 /min Sai Marie MD Work Phone: [facility] 02-15-2024 12:56-0400 SaO2% (BldA) [Mass fraction] 95 % Sai Marie MD Work Phone: [facility] 02-15-2024 12:56-0400 Systolic blood pressure 127 mm[Hg] Sai Marie MD Work Phone: [facility] 01-08-2024 14:42-0400 Body mass index (BMI) [Ratio] 31.92 kg/m2 Yoav Adame MD Work Phone: [facility] 01-08-2024 14:42-0400 Body weight 87 kg Yoav Adame MD Work Phone: [facility] 01-08-2024 14:42-0400 Diastolic blood pressure 84 mm[Hg] Yoav Adame MD Work Phone: [facility] 01-08-2024 14:42-0400 Heart rate 96 /min Yoav Adame MD Work Phone: [facility] 01-08-2024 14:42-0400 Systolic blood pressure 123 mm[Hg] Yoav Adame MD Work Phone: [facility] 12-07-2023 13:46-0400 Body mass index (BMI) [Ratio] 32.45 kg/m2 Francine Alvarez CNP Work Phone: [facility] 12-07-2023 13:46-0400 Body temperature 98.29 [degF] Francine Alvarez CNP Work Phone: [facility] 12-07-2023 13:46-0400 Body weight 88.45 kg Francine Alvarez CNP Work Phone: [facility] 12-07-2023 13:46-0400 Diastolic blood pressure 88 mm[Hg] Francine Alvarez CNP Work Phone: [facility] 12-07-2023 13:46-0400 Heart rate 94 /min Francine Alvarez CNP Work Phone: [facility] 12-07-2023 13:46-0400 SaO2% (BldA) [Mass fraction] 100 % Francine Alvarez CNP Work Phone: [facility] 12-07-2023 13:46-0400 Systolic blood pressure 138 mm[Hg] Francine Alvarez CNP Work Phone: [facility] 11-23-2023 12:21-0400 Body temperature 97.7 [degF] Cecilia Jewish PT [facility] 11-23-2023 12:21-0400 Diastolic blood pressure 80 mm[Hg] Cecilia Jewish PT [facility]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 11-08-2023 Home visit Hilton Mayo PT [facility] Comment on above: CASE COMMUNICATION PT OASIS START OF CA RE Start: 11-07-2023 End: 11-23-[address] [facility] Start: 11-02-2023 End: 11-06-2023 Evaluation and management of inpatient FRANCINE ALVAREZ [facility] Start: 10-19-2023 End: 10-19-2023 ambulatory [facility] Work Phone: Start: 10-19-2023 End: 10-19-2023 Patient encounter procedure [facility], [facility] Start: 10-07-2023 End: 10-07-2023 Office outpatient visit 25 minutes Francine Antonio ALEXANDRE Work Phone: [facility] Comment on above: Impaired gait (Prima ry Dx); History of Lyme disease; Cognitive changes; Memory loss Start: 10-07-2023 End: 10-07-2023 ambulatory [facility] Start: 09-22-2023 End: 09-22-2023 Emergency department patient visit ERNA ROMERO [facility] Start: 08-17-2023 End: 08-21-2023 ambulatory FRANCINE [facility] Start: 08-17-2023 End: 08-17-2023 Office outpatient visit 25 minutes Francine Alvarez INTERNAL MEDICINE NURSE PRACTITIONER Work Phone: [facility] Comment on above: Vision changes (Prim raúl Dx); Multiple falls; Impaired gait; Primary osteoarthritis of both knees; History of Lyme disease Start: 08-17-2023 End: 08-17-2023 ambulatory [facility] Start: 08-13-2023 End: 08-13-2023 Emergency department patient visit GERALDINE OLGA LIDIA VELARDE [facility] Start: 08-11-2023 End: 08-11-2023 Encounter identifier Joe Perlita Work Phone: [place] Start: 08-11-2023 End: 08-11-2023 Office outpatient visit 25 minutes Joe Bhat Work Phone: [place] Start: 06-02-2023 End: 06-02-2023 ambulatory PROVIDER NOT IN SYSTEM [facility] Start: 04-14-2023 End: 04-14-2023 Office outpatient visit 25 minutes Kaushal Oglesby Work Phone: [place] Start: 11-12-2022 End: 11-12-2022 ambulatory [facility] Start: 11-12-2022 End: 11-12-2022 Office outpatient visit 25 minutes Vilma Zhao INTERNAL MEDICINE NURSE PRACTITIONER Work Phone: [facility] [place] Comment on above: Acute cystitis with hematuria (Primary Dx) Start: 10-14-2022 End: 10-14-2022 Office outpatient visit 25 minutes Joe Bhat Work Phone: [place] Start: 07-04-2022 End: 07-04-2022 Encounter identifier Joe Bhat Work Phone: [place] Start: 06-30-2022 End: 06-30-2022 Office outpatient visit 15 minutes Isis Ibis Work Phone: [place] Start: 10-15-2021 End: 10-15-2021 Office outpatient visit 15 minutes Lillie Sequeira DO Work Phone: [facility] Comment on above: UTI symptoms (Primar y Dx); Left flank pain Start: 07-30-2021 End: 07-30-2021 Office outpatient visit 25 minutes Francine Alvarez BALDOMERO Work Phone: [facility] Comment on above: Dysuria (Primary Dx) ; Elevated blood pressure reading without diagnosis of hypertension Start: 12-03-2020 End: 12-03-2020 Patient encounter procedure Graham Dennis Work Phone: [facility] Comment on above: Need for vaccination (Primary Dx) Start: 10-26-2020 End: 10-26-2020 Office outpatient new 30 minutes Debbie Womack Work Phone: [facility] Comment on above: Urinary tract infect ion without hematuria, site unspecified (Primary Dx); UTI symptoms Start: 09-25-2020 End: 09-25-2020 Subsequent hospital visit by physician Kaylen Womack Work Phone: [facility] Periop Start: 09-11-2020 End: 09-11-2020 Subsequent hospital visit by physician Kaylen Womack Work Phone: [facility] Start: 12-01-2019 End: 12-01-2019 Patient encounter procedure Graham Dennis Work Phone: [facility] Comment on above: Need for vaccination (Primary Dx) Start: 11-28-2019 End: 11-28-2019 Office outpatient new 45 minutes Francine Alvarez Work Phone: [facility] Comment on above: Encounter for medica l examination to establish care (Primary Dx); Encounter for preadmission testing; Acute middle ear effusion, right; Nuclear sclerotic cataract of both eyes; Endothelial corneal dystrophy; Vitreous hemorrhage of both eyes (HCC) Start: 09-12-2018 End: 09-12-2018 Office outpatient visit 25 minutes Zainab Valencia Work Phone: [facility] [place] Comment on above: Acute diffuse otitis externa of right ear Start: 12-30-2017 End: 12-30-2017 Ambulatory Provider Not In System [facility] Ultrasound Start: 12-29-2017 End: 12-29-2017 Ambulatory Provider Not In System [facility] Ultrasound Procedures Date Procedure Procedure Detail Performing Clinician Start: 04-05-2025 Lipid 1996 panel - Serum or Plasma Bhakti Harley REED POLISHER-INTERNAL MEDICINE NURSE PRACTITIONER Work Phone: Start: 03-07-2025 End: 03-07-2025 Mri brain brain stem w/o w/contrast material Christal White MD Work Phone: Start: 03-06-2025 End: 03-06-2025 Ct head/brain w/o contrast material Chikis Singh MD Work Phone: Start: 03-06-2025 Assay of magnesium Felix Solis MD Work Phone: Start: 03-06-2025 C-reactive protein Chikis Singh MD Work Phone: Start: 03-06-2025 CBC AND ELECTRONIC DIFF Felix Solis MD Work Phone: Start: 03-06-2025 Complete blood count with white cell differential, automated Felix Solis MD Work Phone: Start: 03-06-2025 GOLD TOP TUBE Felix Solis MD Work Phone: Start: 03-06-2025 LAVENDER TOP TUBE Felix Solis MD Work Phone: Start: 03-06-2025 LT BLUE TOP TUBE Felix Solis MD Work Phone: Start: 03-06-2025 MINT GREEN TOP TUBE Felix Solis MD Work Phone: Start: 03-06-2025 RAINBOW DRAW Felix Solis MD Work Phone: Start: 03-06-2025 Ecg routine ecg w/least 12 lds trcg only w/o i&r Felix Solis MD Work Phone: Start: 01-25-2025 End: 01-25-2025 Radex ankle complete minimum 3 views Lynda Vega REED POLISHER-INTERNAL MEDICINE NURSE PRACTITIONER Work Phone: Start: 12-18-2024 Radiologic exam chest single view Nidia ALCARAZ Work Phone: Start: 12-18-2024 Ct abdomen & pelvis w/contrast material Nidia ALCARAZ Work Phone: Start: 12-18-2024 Comprehensive metabolic panel Nidia elkins PA Work Phone: Start: 12-18-2024 Culture bacterial quanttative colony count urine Nidia Reilly PA Work Phone: Start: 12-18-2024 CONTRERAS URINE CULTURE TUBE Nidiacathy Reilly PA Work Phone: Start: 12-18-2024 YELLOW URINE NO ADDITIVE Nidia Lang A Work Phone: Start: 12-18-2024 Ecg routine ecg w/least 12 lds trcg only w/o i&r Nidia Reilly PA Work Phone: Start: 10-24-2024 End: 10-24-2024 Radex foot complete minimum 3 views Jori Gittins DO Start: 09-28-2024 Radex ankle complete minimum 3 views Óscar Chase DO Work Phone: Start: 09-05-2024 Infectious agent dna/rna influenza 1st 2 types Kita Garza DO Work Phone: Start: 09-05-2024 Sars-cov-2 detection by dna/rna Kita Garza DO Work Phone: Start: 08-30-2024 Ct orbit sella/post fossa/ear w/o contrast matrl Ruddy Pino MD Work Phone: Start: 08-30-2024 CBC AND ELECTRONIC DIFF Ruddy Pino MD Work Phone: Start: 08-30-2024 Complete blood count with white cell differential, automated Ruddy Pino MD Work Phone: Start: 08-30-2024 Creatinine blood Ruddy Pino MD Work Phone: Start: 08-30-2024 GOLD TOP TUBE Ruddy Pion MD Work Phone: Start: 08-30-2024 LAVENDER TOP TUBE Ruddy Pino MD Work Phone: Start: 08-30-2024 LT BLUE TOP TUBE Ruddy Pino MD Work Phone: Start: 08-30-2024 MINT GREEN TOP TUBE Ruddy Pino MD Work Phone: Start: 08-30-2024 RAINBOW DRAW Ruddy Pino MD Work Phone: Start: 08-08-2024 Adult depression screening assessment No Physician Start: 07-16-2024 End: 07-16-2024 Radex ribs unilateral 2 views Allison martinez MD Work Phone: Start: 12-15-2023 End: 12-15-2023 Diagnostic mammography computer-aided detcj bi Rick Alves MD Work Phone: Start: 11-11-2023 Urnls dip stick/tablet rgnt auto w/o microscopy Francine Alvarez CNP Work Phone: Start: 11-11-2023 Comprehensive metabolic panel Francine Alvarez CNP Work Phone: Start: 08-11-2023 End: 08-11-2023 Arthrocentesis aspir&/inj major jt/bursa w/o us Jori Gittins DO Start: 08-11-2023 End: 08-11-2023 Bupivicaine Injection 0.5 mg Jori Git tins DO Start: 08-11-2023 End: 08-11-2023 Ko elastic w/joints pre ots Jori Gitt ins DO Start: 08-11-2023 End: 08-11-2023 Methylprednisolone 80 MG inj Jori Git tins DO Start: 08-11-2023 End: 08-11-2023 Radiologic exam knee complete 4/more views Jori Gittins DO Start: 04-14-2023 End: 04-14-2023 Radex hip unilateral with pelvis 2-3 views Jori Gittins DO Start: 11-12-2022 Urnls dip stick/tablet rgnt auto w/o microscopy Vilma Zhao INTERNAL MEDICINE NURSE PRACTITIONER Work Phone: Start: 10-15-2021 Urnls dip stick/tablet rgnt auto w/o microscopy Lillie Sequeira DO Work Phone: Start: 07-30-2021 Urnls dip stick/tablet rgnt auto w/o microscopy Francine Alvarez INTERNAL MEDICINE NURSE PRACTITIONER Work Phone: Start: 10-26-2020 Urinalysis, automated Debbie Womack Work Phone: Start: 09-25-2020 End: 09-25-2020 PHACOEMULSIFICATION CATARACT INTRAOCULAR LENS CLEAR CORNEA Kaylen Womack Work Phone: Start: 09-11-2020 End: 09-11-2020 PHACOEMULSIFICATION CATARACT INTRAOCULAR LENS CLEAR CORNEA Kaylen Womack Work Phone: Start: 06-08-2012 Mammography Francine Alvarez Start: 02-15-2012 Lipid 1996 panel - Serum or Plasma Carmela Rossi MD Work Phone: Plan of Treatment Date Care Activity Detail Author Start: 07-08-2034 DTaP,Tdap,and Td Vaccines (3 - Td or Tdap) DTaP,Tdap,and Td Vaccines (3 - Td or Tdap) [facility] Start: 10-25-2034 Tetanus vaccination [facility] Start: 04-05-2030 Lipid panel LIPID SCREENING [facility] Start: 2028 RSV Immunization Patients 60+ Years Old (1 - 1-dose 75+ series) RSV Immunization Patients 60+ Years Old (1 - 1-dose 75+ series) [facility] Start: 2028 RSV VACCINE (1 - 1-dose 75+ series) RSV VACCINE (1 - 1-dose 75+ series) [facility] Start: 04-03-2026 Screening for malignant neoplasm of colon COLORECTAL CANCER SCREENING DISCUSSION [facility] Comment on above: Postponed from 1998 (patient prefe rence) Start: 01-02-2026 Screening for malignant neoplasm of cervix CERVICAL CANCER SCREENING DISCUSSION [facility] Comment on above: Postponed from 1974 (patient prefe rence) Start: 12-14-2025 Screening for malignant neoplasm of breast Breast Cancer Screening [facility] Start: 11-06-2025 Tetanus vaccination Tetanus: Every 10yrs [facility] Comment on above: Postponed from 09/14/2012 (Insurance / F inancial) Start: 08-08-2025 Adolescent depression screening assessment Depression Screening [facility] Start: 06-08-2025 Depression Remission Assessment (PHQ9) Depression Remission Assessment (PHQ9) [facility] Start: 05-15-2025 Influenza vaccination [facility] Start: 05-11-2025 End: 05-11-2025 Patient encounter procedure 05/11/2025 1:15 PM EDT Office Visit Neurological Specialty [facility] [address] [place] [address] Ayana Elkins MD [address] [place] [address] Neurological Specialty [facility] Start: 05-01-2025 End: 05-01-2025 Patient encounter procedure 05/01/2025 10:00 AM EDT Office Visit Primary Care - [address] [address] Bhakti Harley, REED POLISHER-INTERNAL MEDICINE NURSE PRACTITIONER [address] [place] [id number] Primary Care - [facility] Start: 04-03-2025 End: 04-03-2026 DXA Skeletal system.axial Views for bone density BONE DENSITY AXIAL (HIP, PELVIS, SPINE) Imaging Routine Encounter for osteoporosis screening in asymptomatic postmenopausal patient Expected: 04/03/2025, Expires: 04/03/2026 [facility] Comment on above: Expected: 04/03/2025, Expires: Start: 04-03-2025 End: 05-04-2026 MG Breast - bilateral Screening MAMMO SCREENING BILATERAL Imaging Routine Screening mammogram for breast cancer Expected: 04/03/2025, Expires: 05/04/2026 [facility] Comment on above: Expected: 04/03/2025, Expires: Start: 04-03-2025 End: 04-03-2025 Patient encounter procedure 04/03/2025 9:20 AM EDT Office Visit Primary Care - [address] [address] Bhakti Harley, REED POLISHER-[address] [address] Primary Care - [facility] Start: 12-15-[address] [facility] Start: 12-15-2024 Measurement of Human coxsackievirus B antibody [facility] Start: 12-14-2024 Screening for malignant neoplasm of breast [facility] Start: 12-07-2024 Fall risk assessment Falls Risk Assessment [facility] Start: 12-06-2024 COVID-19 Vaccine ( season) COVID-19 Vaccine ( season) [facility] Comment on above: Postponed from 05/15/2023 (Patient Refus ed) Start: 11-15-2024 End: 11-15-2024 Patient encounter procedure 11/15/2024 1:00 PM EST Office Visit [facility] [address] [place] [address] Adrian Jean, REED POLISHER-INTERNAL MEDICINE NURSE PRACTITIONER [address] [place] [address] [facility] Start: 11-07-2024 Georgia Ochoa LT FOOT [facility] Work Phone: Start: 11-04-2024 Depression screening using PHQ-9 (Patient Health Questionnaire 9) score Depression Screening/Follow-Up (PHQ-2/9) [facility] Start: 10-25-2024 End: 10-25-2024 Patient encounter procedure 10/25/2024 2:00 PM EST Office Visit [facility] [address] [facility] [address] [place] [address] Adrian Jean, REED POLISHER-INTERNAL MEDICINE NURSE PRACTITIONER [address] [place] [address] [address] [place] [address] [facility] Start: 10-24-2024 Georgia Ochoa KNEE [facility] Work Phone: Start: 09-29-2024 Falls Risk Assessment Falls Risk Assessment [facility] Start: 09-29-2024 Medicare Annual Wellness Visit Medicare Annual Wellness Visit [facility] Start: 09-29-2024 Screening for malignant neoplasm of colon Colorectal Cancer Screening: Colonoscopy [facility] Start: 09-29-2024 Screening for osteoporosis Osteoporosis Screening (Bone Density Screening) [facility] Start: 09-29-2024 Social Influencers of Health Screening Social Influencers of Health Screening [facility] Start: 09-27-2024 End: 09-27-2024 Patient encounter procedure 09/27/2024 12:00 PM EST Office Visit [facility] [address] [place] [address] Adrian Jean, REED POLISHER-INTERNAL MEDICINE NURSE PRACTITIONER [address] [place] [id number] [facility] Start: 08-09-2024 End: 08-09-2024 Patient encounter procedure 08/09/2024 1:00 PM EST Office Visit [facility] [address] [place] [address] Dominique Alcantar, PA-C [address] [place] [address] [facility] Physician [facility] Start: 06-14-2024 End: 06-14-2024 Patient encounter procedure 06/14/2024 Appointment [facility] [address] [place] [address] Marixa Brown RN [facility] Start: 06-07-2024 End: 06-07-2024 Home visit 06/07/2024 Home Care Visit [facility] [address] [place] [address] Marixa Brown, JYOTSNA [facility] Start: 05-31-2024 End: 05-31-2024 Home visit 05/31/2024 1:30 AM EDT Home Care Visit [facility] [address] [place] [address] Marixa Brown, JYOTSNA [facility] Start: 05-24-2024 End: 05-24-2024 Patient encounter procedure 05/24/2024 2:00 PM EDT Office Visit [facility] Physician [facility] [address] [place] [phone] Dominique Alcantar, SAMPSON [address] [place] [address] [facility] Physician [facility] Start: 05-24-2024 End: 05-24-2024 Home visit 05/24/2024 7:30 AM EDT Home Care Visit [facility] [address] [place] [address] Marixa Brown RN [facility] Start: 05-17-2024 End: 05-17-2024 Home visit 05/17/2024 Home Care Visit [facility] [address] [place] [address] Marixa Brown RN [facility] Start: 05-15-2024 COVID-19 Vaccine ( season) COVID-19 Vaccine () [facility] Start: 05-15-2024 COVID-19 VACCINE () COVID-19 VACCINE () [facility] Start: 05-15-2024 Influenza vaccination [facility] Start: 05-10-2024 End: 05-10-2024 Home visit 05/10/2024 1:30 AM EDT Home Care Visit [facility] [address] [place] [address] Marixa Brown RN [facility] Start: 05-03-2024 End: 05-03-2024 Home visit [facility] Start: 04-29-2024 End: 04-29-2024 Home visit 04/29/2024 4:45 AM EDT Home Care Visit [facility] [address] [place] [address] Patricia Bass OT [facility] Start: 04-28-2024 End: 04-28-2024 Home visit 04/28/2024 3:45 AM EDT Home Care Visit [facility] [address] [place] [address] Iveth Alves PT [facility] Start: 04-27-2024 End: 04-27-2024 Home visit 04/27/2024 4:45 AM EDT Home Care Visit [facility] [address] [place] [address] Patricia Bass OT [facility] Start: 04-26-2024 End: 04-26-2024 Home visit 04/26/2024 6:00 AM EDT Home Care Visit [facility] [address] [place] [address] Marixa Brown, RN [facility] Start: 04-19-2024 End: 04-19-2024 Home visit 04/19/2024 1:30 AM EDT Home Care Visit [facility] [address] [place] [address] Marixa Brown, RN [facility] Start: 04-16-2024 End: 04-16-2024 Patient encounter procedure 04/16/2024 1:00 PM EDT Appointment [facility] [address] [place] [address] Minda Floyd RN [facility] Start: 03-13-2024 Influenza vaccination Sequential Influenza Vaccine (#1) [facility] Comment on above: Postponed from 05/15/2023 (Patient Refus ed) Start: 02-15-2024 End: 02-15-2024 Patient encounter procedure 02/15/2024 1:00 PM EDT Office Visit [facility] [place] [phone] Francine Alvarez, INTERNAL MEDICINE NURSE PRACTITIONER [address] [address] Sai Marie MD [address] [facility] [address] [place] [address] [facility] Start: 01-08-2024 End: 01-08-2024 Patient encounter procedure 01/08/2024 2:40 PM EDT Office Visit [facility], Neuroscience [address] [place] [address] [address] [place] [phone] Francine Alvarez, INTERNAL MEDICINE NURSE PRACTITIONER [address] [place] [address] Yoav Adame MD [address] [facility] [address] [place] [address] [facility], Neuroscience Start: 12-09-2023 End: 12-09-2023 Patient encounter procedure 12/09/2023 2:30 PM EDT Office Visit [facility]icians [address] [place] [address] Francine Alvarez, BALDOMERO [address] [place] [address] [facility] Start: 12-02-2023 End: 12-02-2023 Patient encounter procedure 12/02/2023 9:00 AM EDT Appointment [facility] [address] [place] [address] Cecilia Toth, PT [facility] Start: 11-25-2023 End: 11-25-2023 Home visit 11/25/2023 10:00 AM EDT Home Care Visit [facility] [address] [place] [address] Geraldine Gonzáles SUCTION DRUM DRIER OPERATOR [facility] Start: 11-25-2023 End: 11-25-2023 Home visit 11/25/2023 Home Care Visit [facility] [address] [place] [address] Geraldine Gonzáles SUCTION DRUM DRIER OPERATOR [facility] Start: 11-23-2023 End: 11-23-2023 Home visit 11/23/2023 12:30 PM EDT Home Care Visit [facility] [address] [place] [address] Cecilia Toth, PT [facility] Start: 11-23-2023 End: 11-23-2023 Home visit 11/23/2023 4:30 AM EDT Home Care Visit [facility] [address] [place] [address] Geraldine Gonzáles, AZALIA [facility] Start: 11-20-2023 End: 11-20-2023 Home visit 11/20/2023 4:30 AM EST Home Care Visit [facility] [address] [place] [address] Geraldine Gonzáles PTA [facility] Start: 11-19-2023 End: 11-19-2023 Home visit 11/19/2023 10:00 AM EST Home Care Visit [facility] [address] [place] [address] Geraldine Gonzáles PTA [facility] Start: 11-18-2023 End: 11-18-2023 Home visit 11/18/2023 1:00 PM EST Home Care Visit [facility] [address] [place] [address] Geraldine Gonzáles PTA [facility] Start: 11-16-2023 End: 11-16-2023 Home visit 11/16/2023 9:00 AM EST Home Care Visit [facility] [address] [place] [address] Geraldine Gonzáles PTA [facility] Start: 11-12-2023 End: 11-12-2023 Home visit 11/12/2023 3:00 AM EST Home Care Visit [facility] [address] [place] [address] Geraldine Gonzáles PTA [facility] Start: 11-11-2023 End: 11-11-2023 Patient encounter procedure 11/11/2023 1:30 PM EST Office Visit [facility] Care Physicians [address] [place] [address] Francine Alvarez, BALDOMERO [address] [place] [address] [facility] Start: 11-11-2023 End: 11-11-2023 Home visit [facility] Start: 11-11-2023 End: 11-11-2023 Home visit 11/11/2023 Home Care Visit [facility] [address] [place] [address] Geraldine Gonzáles PTA [facility] Start: 11-08-2023 End: 11-08-2023 Patient encounter procedure 11/08/2023 2:00 PM EST Appointment [facility] [address] [place] [address] Hilton Mayo, PT [facility] Start: 10-19-2023 Procedure [facility] Start: 10-19-2023 Thiamine measurement [facility] Start: 10-19-2023 Vitamin B6 measurement [facility] Start: 05-15-2023 COVID-19 Vaccine ( season) COVID-19 Vaccine ( season) [facility] Start: 05-15-2023 Influenza vaccination Sequential Influenza Vaccine (#1) [facility] Start: 07-30-2022 Fall risk assessment Falls Risk Assessment [facility] Start: 07-05-2022 COVID-19 Vaccine (1) COVID-19 Vaccine (1) [facility] Comment on above: Postponed from 1965 (Patient Refus ed) Postponed from 12/17 (Patient Refused) Start: 05-15-2022 Influenza vaccination Sequential Influenza Vaccine (#1) [facility] Start: 09-02-2021 Administration of herpes zoster vaccine Zoster Vaccines (2 of 2) [facility] Start: 08-13-2021 End: 08-13-2021 Patient encounter procedure 08/13/2021 Office Visit Primary Care Francine Alvarez, INTERNAL MEDICINE NURSE PRACTITIONER [address] [facility] [address] [place] [address] [facility] Start: 03-13-2021 Influenza vaccination given Sequential Influenza Vaccine (#1) [facility] Comment on above: Postponed from 05/15/2020 (Patient Does Not Have Time) Start: 11-30-2020 Pneumococcal vaccination Pneumococcal Vaccine Age 65+ (2 of 2 - PPSV23) [facility] Start: 11-27-2020 Fall risk assessment Falls Risk Assessment [facility] Start: 11-27-2020 Hepatitis C antibody, confirmatory test Hepatitis C Screening [facility] Comment on above: Postponed from 1955 (Patient Refus ed) Postponed from 12/17 (Patient Refused) Start: 11-27-2020 History and physical examination, annual for health maintenance Wellness Visit [facility] Start: 11-27-2020 Pneumococcal vaccination Pneumococcal Vaccine Age 65+ (1 of 2 - PCV13) [facility] Comment on above: Postponed from 2018 (Patient Refus ed) Start: 11-27-2020 Screening mammography Mammogram [facility] Comment on above: Postponed from 06/08/2013 (Patient Refus ed) Start: 11-27-2020 Tetanus vaccination Tetanus: Every 10yrs [facility] Comment on above: Postponed from 1955 (Patient Refus ed) Postponed from 09/14 (Patient Refused) Start: 09-25-2020 End: 09-25-2020 Hospital Encounter [facility] Comment on above: RIGHT EYE CATARACT EXTRACTION WITH LENS IMPLANT WITH LRI Start: 05-30-2020 Screening for malignant neoplasm of colon Colorectal Cancer Screening: Colonoscopy [facility] Comment on above: Postponed from 1955 (Patient Refus ed) Start: 05-26-2020 Screening for osteoporosis Dexa Scan [facility] Comment on above: Postponed from 1955 (Patient Refus ed) Start: 05-15-2020 Influenza vaccination given Sequential Influenza Vaccine (#1) [facility] Start: 03-13-2020 Influenza vaccination given Sequential Influenza Vaccine (#1) [facility] Comment on above: Postponed from 05/15/2019 (Patient Refus ed) Start: 02-26-2020 Administration of herpes zoster vaccine Zoster Vaccines (1 of 2) [facility] Comment on above: Postponed from 12/18/2003 (Insurance / F inancial) Start: 05-15-2018 Influenza vaccination SEQUENTIAL INFLUENZA VACCINE (#1) [facility] Start: 05-15-2017 Influenza vaccination SEQUENTIAL INFLUENZA VACCINE (#1) [facility] Start: 02-14-2017 Lipid panel LIPID SCREENING [facility] Start: 2013 Respiratory Syncytial Virus Immunization: Risk, 60-74 Risk, or 75+ (1 - Risk 60-74 years 1-dose series) Respiratory Syncytial Virus Immunization: Risk, 60-74 Risk, or 75+ (1 - Risk 60-74 years 1-dose series) [facility] Start: 2013 RSV Immunization Adult Patients (1 - Risk 60-74 years 1-dose series) RSV Immunization Adult Patients (1 - Risk 60-74 years 1-dose series) [facility] Start: 2013 RSV VACCINE (1 - 1-dose 60+ series) RSV VACCINE (1 - 1-dose 60+ series) [facility] Start: 2013 Zoster vacc, sc ZOSTER VACCINE [facility] Start: 06-08-2013 Screening for malignant neoplasm of breast Mammogram [facility] Start: 06-08-2013 Screening mammography Mammogram [facility] Start: 09-14-2012 Tetanus vaccination [facility] Start: 11-29-2009 Hepatitis B vaccination HEP B VACCINE (2 of 3 - 19+ 3-dose series) [facility] Start: 11-29-2009 Hepatitis B Vaccines (2 of 3 - 19+ 3-dose series) Hepatitis B Vaccines (2 of 3 - 19+ 3-dose series) [facility] Start: 12-18-2003 Administration of herpes zoster vaccine Zoster Vaccines (1 of 2) [facility] Start: 12-18-2003 Screening for malignant neoplasm of colon [facility] Start: 12-18-2003 ZOSTER VACCINES (1 of 2) ZOSTER VACCINES (1 of 2) [facility] Start: 1998 Screening for malignant neoplasm of colon COLORECTAL CANCER SCREENING DISCUSSION [facility] Start: 1993 Screening for malignant neoplasm of breast Mammogram [facility] Start: 1974 Screening for malignant neoplasm of cervix CERVICAL CANCER SCREENING DISCUSSION [facility] Start: 12-18-1971 Hepatitis C antibody, confirmatory test Hepatitis C Screening [facility] Start: 12-18-1971 Hepatitis C screening Hepatitis C Screening [facility] Start: 1969 COVID-19 Vaccine (1 of 2) COVID-19 Vaccine (1 of 2) [facility] Start: 1969 COVID-19 Vaccine (1) COVID-19 Vaccine (1) [facility] Start: 1965 Depression screening using PHQ-9 (Patient Health Questionnaire 9) score Depression Screening (PHQ-2/9) [facility] Start: 1956 Medicare Wellness Visit Medicare Wellness Visit [facility] Start: 06-18-1954 COVID-19 Vaccine (#1) COVID-19 Vaccine (#1) [facility] Start: 1953 Fall risk assessment Falls Risk Assessment [facility] Start: 1953 Screening for malignant neoplasm of colon [facility] Start: 1953 Screening for osteoporosis [facility] Start: 1953 HEPATITIS C SCREENING HEPATITIS C SCREENING [facility] Start: 1953 Screening colonoscopy COLONOSCOPY [facility] Start: 1953 Screening for malignant neoplasm of cervix PAP SMEAR [facility] Start: 1953 Tetanus vaccination TETANUS EVERY 10 YR [facility] Bacteria identified Aer cx Nom (Unsp spec) Urine culture Microbiology Routine Urinary tract infection without hematuria, site unspecified Ordered: 10/26/2020 [facility] Comment on above: Ordered: 10/26/2020 Bacteria identified in Unspecified specimen by Aerobe culture Urine Aerobic Culture Microbiology Routine Dysuria Ordered: 07/30/2021 [facility] Work Phone: Comment on above: Ordered: 07/30/2021 Bacteria identified in Unspecified specimen by Aerobe culture Urine Aerobic Culture Microbiology Routine UTI symptoms Ordered: 10/15/2021 [facility] Work Phone: Comment on above: Ordered: 10/15/2021 Bacteria identified in Unspecified specimen by Aerobe culture Urine culture Microbiology Routine Acute cystitis with hematuria 11/12/2022 11:32 AM EST [facility] Work Phone: Bacteria identified in Unspecified specimen by Aerobe culture Urine Aerobic Culture Microbiology Routine Acute cystitis without hematuria 11/11/2023 2:12 PM EST [facility] Bacteria identified in Urine by Culture Culture urine Microbiology STAT 12/18/2024 1:09 AM EDT [facility] Bartonella henselae IgG Ab [Presence] in Serum [facility] Bartonella henselae IgM Ab [Presence] in Serum [facility] Bartonella mccabe IgG Ab [Presence] in Serum [facility] Bartonella mccabe IgM Ab [Presence] in Serum [facility] Binocular microscopy separate dx procedure PA BINOCULAR MICROSCOPY SEPARATE DX PROCEDURE PA Charge Routine Otomycosis Ordered: 09/27/2024 [facility] Comment on above: Ordered: 09/27/2024 Binocular microscopy separate dx procedure PA BINOCULAR MICROSCOPY SEPARATE DX PROCEDURE PA Charge Routine Otomycosis Otorrhea, left Ordered: 10/25/2024 [facility] Comment on above: Ordered: 10/25/2024 End: 05-02-2025 CBC panel - Blood by Automated count CBC Lab Routine Lyme disease weekly for 12 Occurrences starting 05/02/2024 until 05/02/2025 [facility] Work Phone: Comment on above: weekly for 12 Occurrences starting 05/02 until 05/02/2025 Cologuard Cologuard Lab Ro utine Colon cancer screening Ordered: 12/07/2023 [facility] Comment on above: Ordered: 12/07/2023 End: 05-02-2025 Comprehensive metabolic 2000 panel - Serum or Plasma Comprehensive metabolic panel Lab Routine Lyme disease weekly for 12 Occurrences starting 05/02/2024 until 05/02/2025 [facility] Comment on above: weekly for 12 Occurrences starting 05/02 until 05/02/2025 Coxsackievirus B1 Ab [Presence] in Serum [facility] Coxsackievirus B2 Ab [Presence] in Serum [facility] Coxsackievirus B3 Ab [Presence] in Serum [facility] Coxsackievirus B4 Ab [Presence] in Serum [facility] Coxsackievirus B5 Ab [Presence] in Serum [facility] Coxsackievirus B6 Ab [Presence] in Serum [facility] End: 11-11-2024 DXA Skeletal system.axial Views for bone density XR Bone Density DEXA Axial Imaging Routine Postmenopausal estrogen deficiency 1 Occurrences starting 11/11/2023 until 11/11/2024 [employer] Work Phone: Comment on above: 1 Occurrences starting 11/11/2023 until 11/11/2024 End: 08-08-2025 Ear cerum removal Ear cerum removal Procedures Routine Impacted cerumen of right ear 1 Occurrences starting 08/08/2024 until 08/08/2025 [employer] Work Phone: Comment on above: 1 Occurrences starting 08/08/2024 until 08/08/2025 Electrocardiogram 12-Lead ECG EC G STAT 12/18/2024 12:55 AM EDT [employer] Work Phone: End: 03-06-2025 Fundus photography w/interpretation & report FUNDUS PHOTOGRAPHY-OU PA - OFFICE PERFORMED IMAGING Routine One Time for 1 Occurrences starting 03/06/2025 until 03/06/2025 [facility] Comment on above: One Time for 1 Occurrences starting 02/13 until 03/06/2025 End: 11-27-2020 HbA1c (Bld) [Mass fraction] Hemoglobin A1c Lab Routine Encounter for medical examination to establish care 1 Occurrences starting 11/28/2019 until 11/27/2020 [facility] Comment on above: 1 Occurrences starting 11/28/2019 until 11/27/2020 HbA1c (Bld) [Mass fraction] Hemoglobin A1c Lab Routine Encounter for medical examination to establish care 11/28/2019 10:09 AM EDT [facility] IgA [Mass/volume] in Serum or Plasma [facility] IgE [Units/volume] i n Serum or Plasma [facility] IgG [Mass/volume] in Serum or Plasma [facility] IgG subclass 1 [Mass/volume] in Serum [facility] IgG subclass 2 [Mass/volume] in Serum [facility] IgG subclass 3 [Mass/volume] in Serum [facility] IgG subclass 4 [Mass/volume] in Serum [facility] IgM [Mass/volume] in Serum or Plasma [facility] Irrigation of ear PA EAR IRRIGAT ION/WAX REMOVAL PA - OFFICE PERFORMED STAT Hearing loss of right ear, unspecified hearing loss type Ordered: 09/15/2024 [facility] Comment on above: Ordered: 09/15/2024 End: 05-24-2025 Lipid 1996 panel - Serum or Plasma Lipid Panel Lab Routine Encounter for medical examination to establish care 1 Occurrences starting 05/24/2024 until 05/24/2025 [facility] Work Phone: Comment on above: 1 Occurrences starting 05/24/2024 until 05/24/2025 Lipoprotein a [Mass/volume] in Serum or Plasma [facility] End: 08-17-2024 Measurement of Borrelia burgdorferi antibody Lyme Disease IgG/IgM w/Western Blot Reflex, Blood Lab Routine History of Lyme disease 1 Occurrences starting 08/17/2023 until 08/17/2024 [facility] Work Phone: Comment on above: 1 Occurrences starting 08/17/2023 until 08/17/2024 Measurement of Borre moise burgdorferi antibody Lyme Disease IgG/IgM w/Western Blot Reflex, Blood Lab Routine History of Lyme disease 08/17/2023 11:46 AM EST [facility] End: 02-05-2025 MG Breast - bilateral Screening Mammography Screening [place] Bilateral Imaging Routine Screening mammogram for breast cancer 1 Occurrences starting 12/07/2023 until 02/05/2025 [facility] Work Phone: Comment on above: 1 Occurrences starting 12/07/2023 until 02/05/2025 Mycoplasma IgM measurement [facility] Mycoplasma pneumonia e IgG Ab [Presence] in Serum [facility] End: 03-06-2025 Ophthalmic OCT panel OCT OPTIC NERVE OU PA - OFFICE PERFORMED IMAGING Routine One Time for 1 Occurrences starting 03/06/2025 until 03/06/2025 [facility] Comment on above: One Time for 1 Occurrences starting 02/13 until 03/06/2025 End: 03-06-2025 Optical coherence tomography of retina OCT/HRT MACULA OU PA - OFFICE PERFORMED IMAGING Routine One Time for 1 Occurrences starting 03/06/2025 until 03/06/2025 [facility] Work Phone: Comment on above: One Time for 1 Occurrences starting 02/13 until 03/06/2025 End: 11-11-2024 US Abdomen limited US Abdomen Limited Study Imaging Routine Elevated LFTs 1 Occurrences starting 11/11/2023 until 11/11/2024 [facility] Work Phone: Comment on above: 1 Occurrences starting 11/11/2023 until 11/11/2024 Immunizations Immunization Date Immunization Notes Care Provider [facility] 07-08-2024 tetanus toxoid, redu morteza diphtheria toxoid, and acellular pertussis vaccine, adsorbed Dominique Alcantar PA-C Work Phone: [facility] 09-11-2021 zoster vaccine recombinant Francine Hilty INTERNAL MEDICINE NURSE PRACTITIONER Work Phone: [facility] 07-08-2021 zoster vaccine recombinant Francine Hilty INTERNAL MEDICINE NURSE PRACTITIONER Work Phone: [facility] 07-05-2021 Influenza IIV4 high dose 65 and Older Vilma Zhao INTERNAL MEDICINE NURSE PRACTITIONER Work Phone: [facility] 07-05-2021 influenza, high dose seasonal, preservative-free Francine Alvarez INTERNAL MEDICINE NURSE PRACTITIONER Work Phone: [facility] 07-05-2021 influenza virus vaccine, unspecified formulation Carmela Rossi MD Work Phone: [facility] 12-03-2020 pneumococcal polysaccharide vaccine, 23 valent [facility] 12-03-2020 pneumococcal vaccine , unspecified formulation [facility] 12-01-2019 influenza, high dose seasonal, preservative-free [facility] 12-01-2019 pneumococcal conjuga te vaccine, 13 valent [facility] 12-01-2019 pneumococcal vaccine , unspecified formulation [facility] 12-01-2019 flu vacc [id number] 5yr up,PF (FLUZONE HIGH DOSE) syringe [facility] 11-01-2009 hepatitis B vaccine, adult dosage Francine Alvarez [facility] 06-07-2009 hepatitis B vaccine, pediatric or pediatric/adolescent dosage Francine Alvarez [facility] 05-07-2009 hepatitis B vaccine, pediatric or pediatric/adolescent dosage Francine Alvarez [facility] 09-14-2007 tuberculin skin test ; purified protein derivative solution, intradermal [facility] 09-14-2002 tetanus toxoid, redu morteza diphtheria toxoid, and acellular pertussis vaccine, adsorbed [facility] Payers Date Payer Category Payer Self-pay [id number] 2020 Blue Cross Blue Shield 1.2.8 [id number] 2020 Managed Care (unspecified) MEDICARE SUPPLEMENT [id number] 2020 Unknown ANTHEM ANTHEM BC TRADITIONAL [id number] 2020-Present [id number] 1.2.840.384861.1.13.385.2 .7.3.094666.315 2019 Unknown [facility] UHC AFTER ME DICARE xxxxxxxxx 2019-Present xxxxxxxxx [id number] .7.3.024486.315 2019 Unknown [facility] UHC AFTER ME DICARE [id number] 2019-Present [id number] 1.2.840.286463.1.13.385.2 .7.3.108851.315 2019 Unknown [id number] 2018 Medicare MEDICARE MEDICAR E PART A & B xxxxxxxxxxx 2018-Present [place] xxxxxxxxxxx [id number] 2018 Medicare MEDICARE MEDICAR E PART A & B [id number] 2018-Present [place] [id number] .[id number] 2018 Medicare [id number]. 1.13.385.2 .7.3.356590.315 2011 Unknown 1.2.840.744182. 1.13.385.2 .7.3.048598.315 2009 Unknown [id number] 1959 Medicare [id number] 1959 Unknown [id number] 1953 Unknown [id number] 2.16.840.1.847839.3.579.2 .903 1953 Unknown [id number] 2.16.840.1.676348.3.579.2 .900 1953 Unknown [id number] 2.16.840.1.367737.3.579.2 .900 1953 Unknown [id number] 2.16.840.1.763744.3.579.2 .900 1953 Unknown [id number] 2.16.840.1.811440.3.579.2 .900 1953 Unknown [id number] 2.16.840.1.586839.3.579.2 .900 1953 Unknown [id number] 2.16.840.1.166008.3.579.2 .900 1953 Unknown [id number] 2.16840.1.238371.3.579.2 .900 1953 Unknown [id number] 2.16.840.1.782385.3.579.2 .900 1953 Unknown [id number] 2.16.840.1.253314.3.579.2 .900 1953 Unknown [id number] 2.16.840.1.812970.3.579.2 .651 1953 Unknown [id number] 2.16.840.1.864441.3.579.2 .651 1953 Unknown [id number] 2.16.840.1.717208.3.579.2 .903 1953 Unknown [id number] 2.16.840.1.405145.3.579.2 .903 1953 Unknown [id number] 2.16.840.1.194208.3.579.2 .902 1953 Unknown [id number] 2.16.840.1.339585.3.579.2 .902 1953 Unknown [id number] 2.16.840.1.379100.3.579.2 .1953 Unknown [id number] 2.16.840.1.473934.3.579.2 .1953 Unknown [id number] 2.16.840.1.957762.3.579.2 .1953 Unknown [id number] 2.16.840.1.026949.3.579.2 .1953 Unknown [id number] 2.840.1.972826.3.579.2 1953 Unknown [id number] 2.16840.1.317168.3.579.2 .1953 Unknown [id number] 2.840.1.684902.3.579.2 1953 Unknown [id number] 2.840.1.303090.3.579.2 .1953 Unknown [id number] 2.840.1.223230.3.579.2 .1953 Unknown [id number] 2.840.1.679496.3.579.2 .1953 Unknown [id number] 2.840.1.773884.3.579.2 .1953 Unknown [id number] 2.16840.1.700513.3.579.2 .419 1953 Unknown [id number] 2.16840.1.632176.3.579.2 .419 1953 Unknown [id number] 2.16840.1.036647.3.579.2 .1314 1953 Unknown [id number] 2.16840.1.701471.3.579.2 .1313 1953 Unknown [id number] 2.16.840.1.349368.3.579.2 .1314 1953 Unknown [id number] 2.16.840.1.901790.3.579.2 .1313 1953 Unknown [id number] 2.16.840.1.822128.3.579.2 .1313 1953 Unknown [id number] 2.16840.1.180781.3.579.2 .1313 1953 Unknown [id number] 2.16.840.1.758475.3.579.2 .131 1953 Unknown [id number] 2.840.1.619737.3.579.2 .1142 1953 Unknown [id number] 2.840.1.928526.3.579.2 .114 1953 Unknown [id number] 2.840.1.574600.3.579.2 .594 1953 Unknown [id number] 2.840.1.604713.3.579.2 .594 1953 Unknown [id number] 2.840.1.116648.3.579.2 .594 1953 Unknown [id number] 2.840.1.206869.3.579.2 .594 1953 Unknown [id number] 2.840.1.289804.3.579.2 .594 1953 Unknown [id number] 2.840.1.377078.3.579.2 .594 1953 Unknown [id number] 2.840.1.009624.3.579.2 .594 1953 Unknown [id number] 2.840.1.593977.3.579.2 .594 1953 Unknown [id number] 2.840.1.928768.3.579.2 .594 1953 Unknown [id number] 2.16.840.1.534473.3.579.2 .594 1953 Unknown [id number] 2.16.840.1.079593.3.579.2 .594 1953 Unknown [id number] 2.16.840.1.939344.3.579.2 .594 1953 Unknown [id number] 2.16.840.1.504871.3.579.2 .594 1953 Unknown [id number] 2.840.1.334167.3.579.2 .594 1953 Unknown [id number] 2.16.840.1.875961.3.579.2 .594 1953 Unknown [id number] 2.840.1.681774.3.579.2 .594 Unknown [id number] 2.16840.1.850026.3.579.2 .462 Unknown [id number] 2.16840.1.960944.3.579.2 .462 Unknown [id number] 2.16840.1.335441.3.579.2 .462 Unknown [id number] 2.840.1.273978.3.579.2 .462 Social History Date Type Detail Facility Start: 07-09-2012 End: 12-11-2016 Tobacco smoking status [facility] Never smoker [facility] Start: 1955 Sex Assigned At Not on file [facility] Start: 11-28-2019 End: 04-06-2025 Alcohol intake Current non-drinker of alcohol (finding) [facility] Start: 07-09-2012 End: 09-11-2020 Tobacco use and exposure Never used [facility] Start: 11-02-2022 End: 11-12-2022 Exposure to SARS-CoV-2 (event) Not sure [facility] Start: 08-13-2023 End: 04-03-2025 History of Social function [facility] Start: 08-13-2023 End: 04-03-2025 Tobacco use panel [facility] Start: 11-28-2019 Gender identity Identifies as female gender (finding) [facility] Start: 11-28-2019 Sexual orientation Heterosexual (finding) [facility] Start: 1955 Sex Assigned At Female [facility] Has the electric, ga s, oil, or water company threatened to shut off services in your home in past 12Mo No [facility] Adult Depression Screening Assessment 0 [facility] (I/We) worried wheth er (my/our) food would run out before (I/we) got money to buy more. Never true [facility] How hard is it for y ou to pay for the very basics like food, housing, medical care, and heating Not very hard [facility] Start: 09-28-2024 End: 12-18-2024 Alcoholic beverage intake Ex-drinker (finding) [facility] Start: 09-30-2024 End: 10-12-2024 Tobacco smoking status NHIS Unknown if ever smoked [facility] Start: 09-30-2024 Alcohol intake Alcohol Use Details [facility] Start: 12-20-2020 Sexual Orientation Choose not to disclose [facility] Start: 10-17-2012 End: 12-21-2024 Sex Female (finding) [facility] Medical Equipment Procedure Code Equipment Code Equipment Origin al Text Equipment Identifier Dates Lens 19.0 Intrao cular [employer] - [id number] Start: 09-11-2020 Lens 18.5 Intrao cular [employer] - [id number] Start: 09-25-2020 Goals Date Patient Goal Desired Activity /State Personal health goal Comment on above: Formatting of this n ote might be different from the original. Patient will discuss health needs with the health care team, ask questions, and will work to understand their condition. Functional Status Date Assessment Result Facility 10-12-2024 Pain severity - 0-10 verbal numeric rating [Score] - Reported 8/10 [facility] 09-30-2024 Pain severity - 0-10 verbal numeric rating [Score] - Reported 8/10 [facility] Clinical Notes 07-30-2021 to 04-03-2025 SHAREE Owens - 04/03/2025 9:20 AM EDTPatiadam Rony Reich - 03/28/2025 10:15 AM Dayton Hernandes MD - 03/28/2025 10:15 AM Neeru Irby MD - 03/07/2025 2:15 PM EDTActions Note Date & Type Note Facility 04-03-2025 History of Present illness Narrative Note to patient: The Cures Act makes medical notes available to patients in the interest of transparency. However, be advised this is a medical document and it is intended as [id number] communication. It is written in medical language and may contain abbreviations or verbiage that are unfamiliar. It may appear blunt or direct. Medical documents are intended to carry relevant information, facts as evident, and the clinical opinion of the practitioner. HISTORY OF PRESENT ILLNESS History of Present Illness The patient presents for evaluation of dizziness, Lyme disease, and health maintenance. Dizziness - She reports experiencing dizziness, particularly in the mornings, which she describes as being on the verge of vertigo. - The dizziness occurs intermittently during her walks but subsides afterward. - She has undergone a CT scan and an MRI, both of which were normal. - She inquired about the use of meclizine for her dizziness and mentioned that she has previously taken it without any adverse effects. - She is considering switching to a herbal protocol. Lyme Disease - She has a history of Lyme disease, which she believes is the cause of her current neurological symptoms. - She has been diagnosed with Bartonella and Babesia through blood tests. - She has seen an infectious disease specialist in the past and has an upcoming appointment with a neurologist in 04/2025. - She has not consulted with home health services. - She has been advised to avoid farms and animals due to her condition. - She has been treated with IV Rocephin in the past, which improved her condition. Health Maintenance - She has not had a mammogram this year and is not interested in colon cancer screening at this time. - She is fasting today. Alcohol: The patient reports no alcohol consumption. Tobacco: The patient reports no tobacco consumption. Recreational Drugs: The patient reports no use of recreational drugs. PAST SURGICAL HISTORY: - Kidney stone surgery FAMILY HISTORY - Father had a history of heart disease - Mother had a history of high blood pressure, cat allergies, and cataracts Previous PCP? Unsure of name, was with [facility] Last Visit? Last year New ED Visits/Hospitalizations? Yes, dizziness Specialists? Holistic treatment for Lyme disease, previous infectious disease provider was Dr. Rivera Health Goals? -Feel better Denies STI concerns. LMP? No LMP recorded. Patient is postmenopausal. No problems updated. Past Medical History: Diagnosis Date Hx of Lyme disease reports episodes 1990,1995, 2007, 2008,2011, 2023 Kidney stone Past Surgical History: Procedure Laterality Date KIDNEY STONE SURGERY 09/14/1971 REMOVAL CATARACT (PEM) Bilateral August2020/September2020 Current Outpatient Medications Medication Sig Atorvastatin 20 MG tablet Take 1 tablet by mouth daily. cephALEXin 500 MG capsule Take 1 capsule by mouth every 12 hours for 5 days. DISABILITY PLACARD Start: 04/03/2025 Exp: 04/03/2026 Meclizine 25 MG tablet Take 1 tablet by mouth 3 times daily as needed for Nausea / Vomiting. Allergies Allergen Reactions Ciprofloxacin Dyspnea and Hives dizziness Bactrim Doxycycline Dizzy/Vertigo Social History Socioeconomic History Marital status: Single Tobacco Use Smoking status: Never Smokeless tobacco: Never Vaping Use Vaping status: Never Used Substance and Sexual Activity Alcohol use: No Drug use: No Sexual activity: Not Currently Social Drivers of Health Financial Resource Strain: Low Risk (11/09/2023) Received from [facility] Overall Financial Resource Strain (CARDIA) Difficulty of Paying Living Expenses: Not very hard Food Insecurity: No Food Insecurity (11/03/2023) Received from [facility] Hunger Vital Sign Worried About Running Out of Food in the Last Year: Never true Ran Out of Food in the Last Year: Never true Transportation Needs: No Transportation Needs (05/08/2024) Received from [facility] OASIS A1250: Transportation Lack of Transportation (Medical): No Lack of Transportation (Non-Medical): No Patient Unable or Declines to Respond: No Personal Safety: Not At Risk (11/03/2023) Received from [facility] Humiliation, Afraid, Rape, and Kick questionnaire Fear of Current or Ex-Partner: No Emotionally Abused: No Physically Abused: No Sexually Abused: No Housing Stability: Low Risk (11/03/2023) Received from [facility] Housing Stability Vital Sign Unable to Pay for Housing in the Last Year: No Number of Places Lived in the Last Year: 2 Unstable Housing in the Last Year: No Family History Problem Relation Age of Onset Cataract Mother Hypertension Mother Heart Disease - Other Father Heart Disease - Other Other Hypertension Other Breast Cancer Neg Hx Ovarian Cancer Neg Hx Uterine Cancer Neg Hx Prostate Cancer Neg Hx Colon Cancer Neg Hx REVIEW OF SYSTEMS Review of Systems Constitutional: Positive for activity change (decreased activity) and fatigue. Negative for appetite change and unexpected weight change. Respiratory: Negative for shortness of breath. Cardiovascular: Negative for chest pain, palpitations and leg swelling. Gastrointestinal: Negative for abdominal distention, abdominal pain, anal bleeding, blood in stool, constipation, diarrhea, nausea and vomiting. Endocrine: Negative for cold intolerance, heat intolerance, polydipsia, polyphagia and polyuria. Neurological: Positive for dizziness, tremors and weakness. Negative for light-headedness, numbness and headaches. Psychiatric/Behavioral: Positive for sleep disturbance. The patient is nervous/anxious. All other systems reviewed and are negative. PHYSICAL EXAMINATION Blood pressure 118/80, pulse 94, temperature 98.4 F (36.9 C), temperature source Oral, resp. rate 18, height 1.621 m (5' 3.82), weight 86.2 kg (190 lb). Physical Exam Vitals reviewed. Constitutional: Appearance: Normal appearance. HENT: Head: Normocephalic and atraumatic. Cardiovascular: Rate and Rhythm: Normal rate and regular rhythm. Pulses: Normal pulses. Heart sounds: Normal heart sounds. Pulmonary: Effort: Pulmonary effort is normal. Breath sounds: Normal breath sounds. Musculoskeletal: Cervical back: Normal range of motion and neck supple. Skin: General: Skin is warm and dry. Neurological: General: No focal deficit present. Mental Status: She is alert and oriented to person, place, and time. Mental status is at baseline. Psychiatric: Mood and Affect: Mood normal. Affect is tearful. Behavior: Behavior normal. Thought Content: Thought content normal. Judgment: Judgment normal. Results - Imaging: EXAM: MRI BRAIN WITH AND WITHOUT CONTRAST, 03/07/2025 15:14 PM FINDINGS: Moderate scattered FLAIR hyperintensity in the periventricular and subcortical white matter is nonspecific, but probably due to chronic small vessel changes. No evidence of edema. No evidence of mass lesion. No evidence of hemorrhage. No diffusion restriction or evidence of acute infarct is identified. No abnormal enhancement. No extracerebral collection. Sellar appears unremarkable. The pituitary stalk appears thickened and heterogeneously enhancing, measuring about 4 mm in diameter. However, when comparing to a prior study from February 2012, this finding is stable and therefore likely of no clinical significance. Posterior fossa is unremarkable. Ventricles and sulci are within normal limits. Extracranial structures are unremarkable. IMPRESSION IMPRESSION: No acute infarct or hemorrhage in the brain. Chronic microvascular ischemic changes. Chronic thickening of the pituitary stalk, of doubtful clinical significance given the stability since at least 2011 EXAM: MRI ORBITS WITH AND WITHOUT CONTRAST, 03/07/2025 15:15 PM FINDINGS: Globes appear unremarkable. Evidence of prior cataract surgery. Optic nerves appear normal in signal and caliber. The supraclinoid internal carotid arteries indent the undersurface of the optic nerve cisternal segments bilaterally which is an anatomic variant is likely of no clinical significance. There is no retro-orbital mass. Extraocular muscles are normal in size and symmetric. Lacrimal glands are within normal limits. Superior ophthalmic veins are symmetric in caliber. Optic chiasm appears normal. Sella appears unremarkable. There is thickening and heterogeneous enhancement of the pituitary stalk which measures about 4 mm in thickness. This finding is grossly stable dating back to the prior brain MRI from February 2012. Cavernous sinuses appear normal. IMPRESSION IMPRESSION: No evidence for optic neuritis or other acute orbital finding. ASSESSMENT AND PLAN Assessment & Plan 1. Dizziness - Could be a residual effect of previous Lyme disease - Trial of meclizine 25 mg, to be taken three times daily as needed - Discontinue meclizine if it exacerbates dizziness or induces confusion or brain fog, and inform provider immediately - Referral for physical therapy to manage dizziness - Previous MRI did not reveal any abnormalities 2. History of Lyme disease - History of Lyme disease may be contributing to current symptoms, though previous Lyme AB negative - Referral to Dr. Garcia, an infectious disease specialist that pt previously saw, for further management - Continue holistic treatment approach as long as it does not interfere with medications - Previously treated with IV Rocephin, which was effective 3. Health maintenance - General labs to be ordered today, including thyroid function tests, kidney and liver function tests, electrolyte levels, diabetes screening, cholesterol levels, and blood counts - Baseline urine test to be conducted - Mammogram and DEXA scan to be ordered - Disability placard to be provided for the next year Follow-up - Patient to follow up in 1 month Orders Placed This Encounter MAMMO SCREENING BILATERAL BONE DENSITY AXIAL (HIP, PELVIS, SPINE) COMPREHENSIVE METABOLIC PANEL HEMOGLOBIN A1C CBC, EDIF, PLATELET LIPID PANEL WITH REFLEX TO MEASURED LDL AMB REFERRAL TO PHYSICAL THERAPY AMB REFERRAL TO INFECTIOUS DISEASE Meclizine 25 MG tablet DISABILITY PLACARD URINALYSIS Requested Prescriptions Signed Prescriptions Disp Refills Meclizine 25 MG tablet 270 tablet 0 Sig: Take 1 tablet by mouth 3 times daily as needed for Nausea / Vomiting. DISABILITY PLACARD 1 Each 0 Sig: Start: 04/03/2025 Exp: 04/03/2026 SHAREE Owens This note was generated using ambient listening technology. I have reviewed the note and edited the note but errors may still occur. As the primary care provider of this patient, I am the focal point for all needed health care services that are part of ongoing care related to this patient's single or serious/complex condition as documented above. Preparation of this visit included approx 10 minutes of chart review where previous labs/provider notes/imaging/etc was reviewed, visit was timed at 50min 51sec on [employer], with approximate total visit time including preparation of 60 minutes. documented in this encounter [facility] 04-03-2025 Instructions SHAREE Owens - 04/03/2025 9:20 AM EDT Welcome to our office! Please come in at least one time per year for your annual exam. If you need to come in more frequently I will make you aware of this. If you are able, please utilize Phone2Action to communicate with me. We can use this to review your lab work, refill prescriptions and answer non-emergent questions. You can also call our office at [phone] if you have questions or concerns. I have ordered a blood draw for you today. This blood draw should be completed while fasting, meaning you have had nothing to eat or dink outside of water for approximately 8-12 hours. You have been provided information regarding labs in the area that you may use. Once your labs result you will see the results, but please allow 24-48 business hours for me to review it. We have provided you a referral to physical therapy and infectious disease with this visit. They should contact you within 2 weeks to set up your first appointment. If you have not heard from their office in 2 weeks, please notify us. Labs/Blood can be drawn at any of the following [facility] locations. They will have access to any orders placed by your doctor or nurse practitioner through the electronic medical system. [facility] Outpatient Blood Drawing Thursday - , 7:00 AM - 7:00 PM Thursday, 7:00 AM - 5:00 PM [facility] [phone] 0 [facility] [address] Thursday - Thursday 7:30AM - 4:15PM [phone] [facility] [address] [facility] [place] Thursday - Thursday 7:30AM - 5:30 PM Thursday 8am-12 noon [phone] [facility] Thursday - Thursday, 7:30 a.m. - 5 p.m. [phone] [address] [facility] First Floor [place] Outpatient Blood Drawing Thursday - Thursday only, 7:30 AM - 5:30 PM [address] 1st Floor [facility] [address] [facility] Outpatient Blood Drawing Thursday - Thursday only, 8:00 AM - 4:30 PM 1st floor Room 1036 114?5 [facility] [phone] [facility] Outpatient Blood Drawing Thursday - Thursday only, 7:30 AM - 5:00 PM Room 2146 [address] [facility] [phone] [facility] Thursday - Thursday 8:00 - 5:00 pm [address] [phone] [facility] Thursday - Thursday 7:30 - 4:15, closed 12:00-1:00pm daily [id number] [phone] documented in this encounter [facility] 03-28-2025 History of Present illness Narrative REASON FOR VISIT Georgia Ochoa presents to clinic today for a New Patient visit. Chief Complaint New Patient; Blurred Vision HISTORY OF PRESENT ILLNESS HPI 69 y.o female, presents as a new patient for blurry vision - Patient states that since July she has been having issues with blacking out. If she puts pants/shoes on the floor she can not see it. It seems the worst in the mornings, but will get better through out the day. Doesn't wear any glasses for her distance, only for near vision ( has had cataract surgery ). - Denies any pain/discomfort/watery/itchy - Denies any new F/F. States she does have floaters but states they came to with all the lyme stuff. Later mentioned in the mornings she will see flashes of lights, sparkles of colors. - States she is light sensitive. Again, this started with the Lyme disease in July. States if she was treated with antibiotics it would have solved it. - Denies any redness - States that she has had Lyme disease and it has not been addresses like it should have been. States that she will have it forever now because she didn't repeat it like she should. States she has had it before and treated. - Currently today she is dizzy. Ocular Meds: No current eye drops Last edited by Antonietta Reich on 03/28/2025 10:17 AM. Allergies, medications & history reviewed & updated by Antonietta Reich REVIEW OF SYSTEMS Review of Systems Eyes: Positive for photophobia and visual disturbance. Respiratory: Negative for chest tightness. Cardiovascular: Negative for chest pain. Gastrointestinal: Negative for abdominal pain. Allergic/Immunologic: Negative for environmental allergies. Neurological: Positive for dizziness. Negative for headaches. >15 minutes was spent with patient updating allergies, medications, and medical history. Referring Physician: Self Self No address on file Hx: 69 yo female with hx of decreased vision, see extensive notes from Dr. Lam in the past. Was inpatient recently for similar complaints, saw Dr. Logan with stable repeat imaging, had NAMRATA brain and orbit that was also normal, now back for follow up. ROS: complete review of systems performed by airframe technician, reviewed by me. 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 Ok for annual IOP Check and OCT, sooner PRN. documented in this encounter [facility] 03-07-2025 Progress note Formatting of t his note is different from the original. This patient was appropriately risk stratified for observation level of care and placed on an observation protocol in our Clinical Decision Unit. The patient's intensity of service and severity of illness was appropriately aligned with observation level of care. Medical Decision Making: Patient is nontoxic in no apparent distress at this time. Patient is currently afebrile. MRI brain and MRI orbits with and without were obtained which showed no acute abnormalities. Neurology was notified and Dr Paty Duque reports okay for discharge from neurology standpoint we will make outpatient follow up with Neurology, neuropsychology as well as ophthalmology. Patient encouraged to continue follow up with primary care physician. Patient denies other needs or concerns at this time. Physical Exam Vitals and nursing note reviewed. Constitutional: General: She is not in acute distress. Appearance: Normal appearance. She is not ill-appearing, toxic-appearing or diaphoretic. Cardiovascular: Rate and Rhythm: Normal rate and regular rhythm. Pulses: Normal pulses. Heart sounds: Normal heart sounds. Pulmonary: Effort: Pulmonary effort is normal. Breath sounds: Normal breath sounds. Skin: General: Skin is warm and dry. Capillary Refill: Capillary refill takes less than 2 seconds. Neurological: General: No focal deficit present. Mental Status: She is alert and oriented to person, place, and time. Disposition: Discharge The patient has met appropriate clinical criteria to be discharged from this CDU observation protocol. Reasons to return to the ED were discussed with the patient. The patient will be instructed to follow up with their primary care physician or specialist; if the patient does not have a physician to see in follow up, our CDU clinical director of casework will assist the patient with their follow up needs. Clinical Impression: ICD-10-CM 1. Blurry vision H53.8 2. Speech disturbance, unspecified type R47.9 3. Memory deficit R41.3 [facility] 03-07-2025 Miscellaneous Notes This patient was appropriately risk stratified for observation level of care and placed on an observation protocol in our Clinical Decision Unit. The patient's intensity of service and severity of illness was appropriately aligned with observation level of care. Medical Decision Making: Patient is nontoxic in no apparent distress at this time. Patient is currently afebrile. MRI brain and MRI orbits with and without were obtained which showed no acute abnormalities. Neurology was notified and Dr Paty Duque reports okay for discharge from neurology standpoint we will make outpatient follow up with Neurology, neuropsychology as well as ophthalmology. Patient encouraged to continue follow up with primary care physician. Patient denies other needs or concerns at this time. Physical Exam Vitals and nursing note reviewed. Constitutional: General: She is not in acute distress. Appearance: Normal appearance. She is not ill-appearing, toxic-appearing or diaphoretic. Cardiovascular: Rate and Rhythm: Normal rate and regular rhythm. Pulses: Normal pulses. Heart sounds: Normal heart sounds. Pulmonary: Effort: Pulmonary effort is normal. Breath sounds: Normal breath sounds. Skin: General: Skin is warm and dry. Capillary Refill: Capillary refill takes less than 2 seconds. Neurological: General: No focal deficit present. Mental Status: She is alert and oriented to person, place, and time. Disposition: Discharge The patient has met appropriate clinical criteria to be discharged from this CDU observation protocol. Reasons to return to the ED were discussed with the patient. The patient will be instructed to follow up with their primary care physician or specialist; if the patient does not have a physician to see in follow up, our CDU clinical director of casework will assist the patient with their follow up needs. Clinical Impression: ICD-10-CM 1. Blurry vision H53.8 2. Speech disturbance, unspecified type R47.9 3. Memory deficit R41.3 CDU/OBSERVATION ATTENDING NOTE Initial Medical Decision Making: Patient presented to the ED with dizziness and blurry vision. Patient with questionable hx of Lyme disease. Placed in Observation for MRI, PT, nuro, ophthalmology. Dispo pending above. Given this presentation, the differential diagnosis includes life/limb threatening disease(s), including but not limited to: Stroke, Lyme Medical Decision Making Amount and/or Complexity of Data Reviewed External Data Reviewed: notes. Labs: ordered. Radiology: ordered. Risk OTC drugs. Prescription drug management. Decision regarding hospitalization. I saw and evaluated the patient with QUINN. I provided a substantive portion of the care for this patient. I personally performed all aspects of the medical decision making for this encounter. I have reviewed and verified this with the QUINN so that it accurately reflects our care. Updates: CC Chief Complaint Patient presents with Dizziness Blurred Vision HPI Georgia Ochoa is a 69 y.o. year old female who presents with slurred speech, dizziness. Physical Exam: BP 115/68 (BP Location: Right arm, BP Position: Lying) Pulse 94 Temp 96.7 F (35.9 C) (Oral) Resp 15 Ht 1.676 m (5' 6) SpO2 97% BMI 30.67 kg/m Smoking Status Never Constitutional: Pt appears well-developed and well-nourished. No distress. I have personally seen and examined this patient. I have fully participated in the care of this patient. I have reviewed pertinent clinical information, including history, physical exam and plan of care with the Advanced Practice Practitioner ( LANDSCAPE FOREMAN or PA) involved in this patient's care. I discussed the history and examination with the QUINN and agree with the plan of care. Disposition: Pending, likely DC I have personally spent 31 minutes or more in discharge time which includes: final examination, preparing discharge instructions, discharge summary, prescriptions, and ambulatory referrals. Clinical Impression: 1) Blurred vision, slurred speech, dizziness. No EKG Interpretation for this patient Problem: OT - ADLs Goal: Lower Body Dressing - Patient will complete lower body dressing tasks with independence using adaptive equipment/compensatory strategies as needed for improved ability to complete self-care activities. Outcome: Ongoing Goal: Toileting - Patient will complete toileting task with independence and adaptive equipment as needed for improved ability to safely complete self-care activities. Outcome: Ongoing Problem: OT - Vision Goal: Low Vision - Patient will demonstrate safe navigation of environment as evidenced by navigating novel environment with min cues, implementing low vision strategies. Outcome: Ongoing Problem: PT - General Goals Goal: Pt will perform bed mobility within precautions at independence in order to improve functional mobility and safety. Outcome: Ongoing Goal: Pt will perform transfers within precautions with independence with without an assistive device in order to improve functional mobility and safety. Outcome: Ongoing Goal: Pt will ambulate 100 feet within precautions with without an assistive device at independence to improve ability to navigate home environment. Outcome: Ongoing DEPARTMENT OF EMERGENCY MEDICINE CHIEF COMPLAINT Chief Complaint Patient presents with Dizziness Blurred Vision HISTORY OF PRESENT ILLNESS Georgia Ochoa is a 69 y.o. female was appropriately risk stratified for observation level of care and was placed on the [facility] Vertigo protocol. Symptoms started with PMH lyme disease, kidney stones p/w dizziness, blurred vision, slurred speech, ongoing symptoms for the past three weeks. Referred to the ED for further evaluation. Ophthalmology consulted, gave recommendations. CTH negative, CTA Brain/Neck negative. Lives alone in a house, no assistive devices, no falls or safety concerns, no home or outpatient services per patient. Currently on Malarone for lyme disease per patient. Plan for observation for symptom management, MRI Brain and Orbits with and without contrast, fall precautions, PT/OT consultation, reassessment. Personal, surgical, family, and social history reviewed with patient. REVIEW OF SYSTEMS Review of Systems Constitutional: Negative. Negative for chills and fever. HENT: Negative. Eyes: Positive for blurred vision. Respiratory: Negative. Negative for cough, hemoptysis, sputum production, shortness of breath and wheezing. Cardiovascular: Negative. Gastrointestinal: Negative. Negative for abdominal pain, blood in stool, constipation, diarrhea, heartburn, melena, nausea and vomiting. Genitourinary: Negative. Negative for dysuria, flank pain, frequency, hematuria and urgency. Musculoskeletal: Negative. Skin: Negative. Neurological: Positive for dizziness, speech change (Slurred speech, intermittent) and headaches. Negative for tingling, tremors, sensory change, focal weakness, seizures, loss of consciousness and weakness. Endo/Heme/Allergies: Negative. Psychiatric/Behavioral: Negative. All Other Systems Were Reviewed And Negative Unless Otherwise Noted PAST MEDICAL HISTORY Past Medical History Reviewed, Contributory Findings Include: See below and above in HPI, no other endorsed PMH per patient. Past Medical History: Diagnosis Date Hx of Lyme disease reports episodes 1990,1995, 2007, 2008,2011, 2023 Kidney stone SURGICAL HISTORY Past Surgical History Reviewed, Contributory Findings Include: No other endorsed surgical history per patient. Past Surgical History: Procedure Laterality Date KIDNEY STONE SURGERY 1971 MEDICATIONS GIVEN IN THE ED Medications iohexol (OMNIPAQUE) 350 MG/ML injection 1-171 mL (100 mL Intravenous Given - Radiology 03/06/252029) Sodium chloride (PF) 0.9 % injection 1-100 mL (20 mL Intravenous Given 03/06/252029) ALLERGIES Allergies Allergen Reactions Ciprofloxacin Dyspnea and Hives dizziness Bactrim No known or endorsed food or drug allergies per patient. FAMILY HISTORY Family History Reviewed, Contributory Findings Include: No other endorsed family history per patient. Family History Problem Relation Age of Onset Cataract Mother Hypertension Mother Heart Disease - Other Father Heart Disease - Other Other Hypertension Other Breast Cancer Neg Hx Ovarian Cancer Neg Hx Uterine Cancer Neg Hx Prostate Cancer Neg Hx Colon Cancer Neg Hx SOCIAL HISTORY Social History Reviewed, Contributory Findings Include: No other endorsed social history per patient. Social History Socioeconomic History Marital status: Single Spouse name: Not on file Number of children: Not on file Years of education: Not on file Highest education level: Not on file Occupational History Not on file Tobacco Use Smoking status: Never Smokeless tobacco: Never Vaping Use Vaping status: Never Used Substance and Sexual Activity Alcohol use: No Drug use: No Sexual activity: Not Currently Other Topics Concern Not on file Social History Narrative Not on file Social Drivers of Health Financial Resource Strain: Low Risk (11/09/2023) Received from [facility] Overall Financial Resource Strain (CARDIA) Difficulty of Paying Living Expenses: Not very hard Food Insecurity: No Food Insecurity (11/03/2023) Received from [facility] Hunger Vital Sign Worried About Running Out of Food in the Last Year: Never true Ran Out of Food in the Last Year: Never true Transportation Needs: No Transportation Needs (05/08/2024) Received from [facility] OASIS A1250: Transportation Lack of Transportation (Medical): No Lack of Transportation (Non-Medical): No Patient Unable or Declines to Respond: No Physical Activity: Not on file Stress: Not on file Social Connections: Not on file Personal Safety: Not At Risk (11/03/2023) Received from [facility] Humiliation, Afraid, Rape, and Kick questionnaire Fear of Current or Ex-Partner: No Emotionally Abused: No Physically Abused: No Sexually Abused: No Housing Stability: Low Risk (11/03/2023) Received from [facility] Housing Stability Vital Sign Unable to Pay for Housing in the Last Year: No Number of Places Lived in the Last Year: 2 Unstable Housing in the Last Year: No PHYSICAL EXAM BP 153/90 (BP Location: Left arm, BP Position: Sitting) Pulse 113 Temp 97.8 F (36.6 C) (Oral) Resp 10 Ht 1.676 m (5' 6) SpO2 92% BMI 30.67 kg/m Smoking Status Never Physical Exam Vitals and nursing note reviewed. Constitutional: General: She is not in acute distress. Appearance: She is well-developed. She is not diaphoretic. HENT: Head: Normocephalic and atraumatic. Eyes: General: No visual field deficit or scleral icterus. Conjunctiva/sclera: Conjunctivae normal. Pupils: Pupils are equal, round, and reactive to light. Neck: Vascular: No JVD. Cardiovascular: Rate and Rhythm: Normal rate and regular rhythm. Heart sounds: No murmur heard. No friction rub. No gallop. Pulmonary: Effort: Pulmonary effort is normal. No respiratory distress. Breath sounds: Normal breath sounds. No wheezing or rales. Chest: Chest wall: No tenderness. Abdominal: General: There is no distension. Palpations: Abdomen is soft. There is no mass. Tenderness: There is no abdominal tenderness. There is no guarding or rebound. Musculoskeletal: General: Normal range of motion. Cervical back: Normal range of motion and neck supple. Skin: General: Skin is warm and dry. Neurological: Mental Status: She is alert and oriented to person, place, and time. GCS: GCS eye subscore is 4. GCS verbal subscore is 5. GCS motor subscore is 6. Cranial Nerves: Cranial nerve deficit (Numbness on L side of face when compared to R, V1-V3 dermatomes) present. No dysarthria or facial asymmetry. Sensory: Sensation is intact. No sensory deficit. Motor: Motor function is intact. Psychiatric: Behavior: Behavior normal. Thought Content: Thought content normal. Judgment: Judgment normal. EDOU COURSE & MEDICAL DECISION MAKING Risk stratification appropriate for observation level of care. Patient was placed in EDOU on the Vertigo protocol. Patient age greater than 64y/o? YES Geriatrics Screening: Delirium Triage Screen: Exclusion Criteria: Non-zero scores are abnormal. The above score does not represent acute delirium based on my assessment. Stage Balance Assessment Score: Exclusion Criteria: Non-zero scores are abnormal. The patient does need urgent physical and occupational therapy consultation or referral for fall risk assessment based on the above score and my assessment. ISAR Score: Exclusion Criteria: Scores of 2 or higher should prompt consideration of case management consultation. The patient does need case management based on my assessment. The patient does need (may benefit from) Geriatrics consultation or outpatient referral based on the above screening and my assessment. Differential diagnosis includes but is not limited to the following, at least one of which represents a life or limb threatening condition: BPPV, TIA, CVA, CRAO, CRVO, mass effect, optic neuritis, cranial neuropathy I reviewed the patients' medical records and nursing notes and noted their allergies, past medical history, and previous visits. The reviewed showed Results for orders placed or performed during the hospital encounter of 03/06/25 CHEM 7 (LYTES,BUN,CREA,GLUC) Result Value Ref Range Sodium 136 135 - 145 mmol/L Potassium 3.7 3.5 - 5.0 mmol/L Chloride 104 98 - 108 mmol/L CO2 24 21 - 31 mmol/L Glucose 114 Nonfastin-179 mg/dL; Fastin-99 mg/dL BUN 11 7 - 25 mg/dL Creatinine 0.56 0.50 - 1.20 mg/dL Bun/Crea Ratio 20 Osmolality (Calculated) 285 278 - 305 mOsm/kg Anion Gap 12 7 - 17 mmol/L eGFR, CKD-EPI, Female >90 >=60 mL/min/1.73m2 PHOSPHATE, INORGANIC Result Value Ref Range Phosphorous 3.0 2.2 - 4.6 mg/dL MAGNESIUM Result Value Ref Range Magnesium 1.8 1.6 - 2.6 mg/dL CALCIUM Result Value Ref Range Calcium 9.5 8.6 - 10.5 mg/dL HIGH SENSITIVITY TROPONIN I - SINGLE ORDER Result Value Ref Range hs-Troponin I <3 <34 ng/L PT,INR,PTT Result Value Ref Range PT 14.8 (H) 11.9 - 14.2 sec INR 1.2 (H) 0.9 - 1.1 PTT 31.5 24.0 - 34.3 sec NT-PRO B-TYPE NATRIURETIC PEPTIDE Result Value Ref Range NT-Pro B-Type Natriuretic Peptide 104 <=540 pg/mL CBC AND ELECTRONIC DIFF Result Value Ref Range WBC Count 8.57 3.99 - 11.19 K/uL RBC Count 4.96 3.91 - 5.04 M/uL Hemoglobin 16.0 (H) 11.4 - 15.2 g/dL Hematocrit 45.7 (H) 34.9 - 44.3 % Mean Cell Volume 92.1 79.6 - 97.7 fL Mean Cell Hgb 32.3 25.9 - 33.9 pg Mean Cell Hgb Conc 35.0 31.4 - 35.9 g/dL RBC Distribution 13.2 10.8 - 14.9 % Platelet Count 228 150 - 393 K/uL Mean Platelet Volume 9.5 8.5 - 12.2 fL DIFF STATUS Electronic Differential Segs + Bands Auto 64.7 % Immature Grans % 1.1 % Lymphocyte % Auto 17.7 % Monocyte % Auto 15.4 % Eosinophil % Auto 0.5 % Basophil % Auto 0.6 % Nucleated RBC 0.0 <=0.2 /100 WBC Segs + Bands,Absolute Auto 5.55 1.64 - 7.28 K/uL Immature Grans Absolute 0.09 (H) <=0.08 K/uL Abs Lymph Auto 1.52 1.16 - 3.51 K/uL Abs [place] Auto 1.32 (H) 0.22 - 0.87 K/uL Abs Eos Auto 0.04 0.00 - 0.42 K/uL Abs Baso Auto 0.05 0.00 - 0.15 K/uL SEDIMENTATION RATE, AUTOMATED Result Value Ref Range ESR Westergren 30 (H) <30 mm/hr C REACTIVE PROTEIN Result Value Ref Range C Reactive Protein 82.05 (H) <10.00 mg/L CT HEAD WITHOUT CONTRAST Final Result IMPRESSION: No acute intracranial findings. I personally viewed and interpreted these images and I have reviewed and approved this report. ANGIO BRAIN/NECK Final Result IMPRESSION: No significant stenosis in the arteries of the neck and brain.. I personally viewed and interpreted these images and I have reviewed and approved this report. /HRT MACULA OU (Results Pending) OCT OPTIC NERVE OU (Results Pending) FUNDUS PHOTOGRAPHY-OU (Results Pending) MRI BRAIN WITH AND WITHOUT CONTRAST (Results Pending) MRI ORBITS WITH AND WITHOUT CONTRAST (Results Pending) The patient received the following interventions in the ED to date: Labs, PO and IV analgesics and antiemetics PRN, home medications, ophthalmology consultation, CTH, CTA/Brain neck, pending continued symptom control overnight, MRI Brain with and without contrast, MRI orbits with and without contrast, fall precautions, PT/OT consultation, reassessment by morning observation team. If improved, likely home with close PCP follow-up. On reassessment the patient's response to the interventions was unchanged, vitals stable, afebrile, resting in bed. While in the EDOU we will continue to check, monitor and reassess patient and alter our plan as clinically appropriate. This is a non-shared visit on 03/07/2025. Medical Decision Making Amount and/or Complexity of Data Reviewed External Data Reviewed: labs, radiology, ECG and notes. Labs: ordered. Decision-making details documented in ED Course. Radiology: ordered. Decision-making details documented in ED Course. ECG/medicine tests: ordered. Decision-making details documented in ED Course. Risk OTC drugs. Prescription drug management. Parenteral controlled substances. Decision regarding hospitalization. Electronically signed by: Mariah Garcia PA-C, 03/07/2025 12:29 AM documented in this encounter [facility] 03-07-2025 Emergency department Note Care Management Progress Note Garcia Documentation Spoke with patient @ 4:24 PM Action Plan: Emergency Department [employer] Counterperson and patient discussed the Medicare Outpatient Observation Notice (GARCIA). Patient's questions answered and patient verified understanding. Patient instructed to call Medicare at 1-800-MEDICARE ( ) if patient has any additional questions. Document signed by patient and [employer] Counterperson. Copy provided for patient. Document scanned to Media tab in chart. FILI Durham BSN, RN, [facility] Clinical [employer] [facility] 03-07-2025 Emergency department Note Care Management Progress Note Garcia Documentation Spoke with patient @ 4:24 PM Action Plan: Emergency Department [employer] Counterperson and patient discussed the Medicare Outpatient Observation Notice (GARCIA). Patient's questions answered and patient verified understanding. Patient instructed to call Medicare at 1-800-MEDICARE ( ) if patient has any additional questions. Document signed by patient and [employer] Counterperson. Copy provided for patient. Document scanned to Media tab in chart. FILI Durham BSN, RN, [facility] Clinical [employer] Counterperson CDU Plan of Care Note Blurred vision, slurred speech Opthalmology Neurology MRI brain and orbits ED Course as of 03/07/25 1415 e Mar 07, 2025 0912 No needs from PT 1243 Neurology: So at this point, her symptoms are not very localizable to a particular neurologic distribution or etiology. We have low concern these are seizures. We will also follow up her brain/orbit MRIs w/ w/o contrast and see if it shows anything. 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 Should discharge needs arise please contact aboriginal education teacher. FILI Durham BSN, RN, [facility] Clinical [employer] Counterperson ED ATTENDING NOTE CHIEF COMPLAINT Chief Complaint Patient presents with Dizziness Blurred Vision HPI Georgia Ochoa is a 69 y.o. female with a has a past medical history of Lyme disease and Kidney stone. She has no past medical history of Anemia, Asthma, Glaucoma, Hyperlipidemia, Occlusion of cerebral arteries, or TIA (transient ischemic attack). who presents for History of Present Illness This is a 69-year-old female with a history of Lyme disease and vertigo presenting with dizziness and blurred vision. The exact timeframe for these symptoms is unclear. History provided by the patient. The patient reports experiencing dizziness and blurred vision for an unspecified duration. She also mentions memory issues, left lower extremity weakness, and slurred speech. She sought medical attention at the [facility] today due to an inability to see objects on her fork, a problem she has been experiencing in the mornings and during low light conditions. However, her response was inconsistent when asked if she is currently experiencing this issue. She reports no eye pain or discomfort during extraocular eye movements. She also reports no changes in hearing, difficulty swallowing, chest pain, shortness of breath, nausea, vomiting, gastrointestinal or genitourinary symptoms, or fevers. The patient describes her dizziness as a spinning sensation, but not as severe as vertigo, and does not feel lightheaded. She reports no facial or extremity paresthesias or upper extremity weakness but does report left lower extremity weakness. ROS see above A review of systems was obtained and is negative other than those discussed in the above HPI and accompanying resident documentation. Systems reviewed include Constitutional, eyes, ENT, Cardiovascular, Pulmonary, Gastrointestinal, neurological, genitourinary, musculoskeletal, skin PAST MEDICAL HISTORY Past Medical History: Diagnosis Date Hx of Lyme disease reports episodes 1990,1995, 2007, 2008,2011, 2023 Kidney stone SURGICAL HISTORY Past Surgical History: Procedure Laterality Date KIDNEY STONE SURGERY 1971 CURRENT MEDICATIONS No current facility-administered medications for this encounter. Current Outpatient Medications Medication Sig Dispense Refill atovaquone 750 MG/5ML Suspension oral suspension Take 5 mL by mouth 2 times daily. cefUROXime 500 MG tablet Take 1 tablet by mouth 2 times daily. Cholestyramine 4 GM/DOSE Powder MIX 4 GRAMS IN BEVERAGE AND DRINK FOUR TIMES DAILY Itraconazole 100 MG capsule Take 1 capsule by mouth daily. Tinidazole 500 MG tablet Take 1 tablet by mouth 2 times daily. ALLERGIES Allergies Allergen Reactions Ciprofloxacin Dyspnea and Hives dizziness Bactrim FAMILY HISTORY Family History Problem Relation Age of Onset Cataract Mother Hypertension Mother Heart Disease - Other Father Heart Disease - Other Other Hypertension Other Breast Cancer Neg Hx Ovarian Cancer Neg Hx Uterine Cancer Neg Hx Prostate Cancer Neg Hx Colon Cancer Neg Hx SOCIAL HISTORY Social History Socioeconomic History Marital status: Single Spouse name: Not on file Number of children: Not on file Years of education: Not on file Highest education level: Not on file Occupational History Not on file Tobacco Use Smoking status: Never Smokeless tobacco: Never Vaping Use Vaping status: Never Used Substance and Sexual Activity Alcohol use: No Drug use: No Sexual activity: Not Currently Other Topics Concern Not on file Social History Narrative Not on file Social Drivers of Health Financial Resource Strain: Low Risk (11/09/2023) Received from [facility] Overall Financial Resource Strain (CARDIA) Difficulty of Paying Living Expenses: Not very hard Food Insecurity: No Food Insecurity (11/03/2023) Received from [facility] Hunger Vital Sign Worried About Running Out of Food in the Last Year: Never true Ran Out of Food in the Last Year: Never true Transportation Needs: No Transportation Needs (05/08/2024) Received from [facility] OASIS A1250: Transportation Lack of Transportation (Medical): No Lack of Transportation (Non-Medical): No Patient Unable or Declines to Respond: No Physical Activity: Not on file Stress: Not on file Social Connections: Not on file Personal Safety: Not At Risk (11/03/2023) Received from [facility] Humiliation, Afraid, Rape, and Kick questionnaire Fear of Current or Ex-Partner: No Emotionally Abused: No Physically Abused: No Sexually Abused: No Housing Stability: Low Risk (11/03/2023) Received from [facility] Housing Stability Vital Sign Unable to Pay for Housing in the Last Year: No Number of Places Lived in the Last Year: 2 Unstable Housing in the Last Year: No PHYSICAL EXAM Vital Signs:BP 139/80 (BP Location: Left arm, BP Position: Lying) Pulse 98 Temp 98.4 F (36.9 C) (Oral) Resp 16 Ht 1.676 m (5' 6) SpO2 97% BMI 30.67 kg/m Smoking Status Never General: NAD, resting comfortably in bed Ent: MMM, trachea midline Lung:normal respiratory effort Heart: , regular rhythm, normal rate, Abd: Soft, NT/ND, Extremities: No edema Skin: No jaundice, lesions, rash or breakdown Neuro: A+Ox3, moving limbs spontaenously Psych: Appropriate affect and mood Physical Exam Eyes: Vision is 20/25 bilaterally. Visual zhoa are normal. Neurological: Neurologic exam is normal. EKG Interpretation Interpreted by me Rhythm: sinus Rate: 100 [place]: normal Ectopy: none Conduction: normal ST Segments: no acute change T Waves: no acute change Q Waves: none Clinical Impression: no STEMI Results ED COURSE & MEDICAL DECISION MAKING Pertinent Labs & Imaging studies if performed reviewed. (See chart for details) Medication list reviewed. EM Medical Decision Making Complexity of Problem Differential Includes: On 03/06/2025 I saw and examined the patient. 69 y.o. female Assessment & Plan Initial Assessment: 69-year-old female with a history of Lyme disease and vertigo presenting with dizziness, blurred vision, memory issues, left lower extremity weakness, and slurred speech. Symptoms have been ongoing for an unclear duration, not acute within the past 24 hours. Differential Diagnosis: - Presyncope: Considered due to dizziness. Imaging to rule out posterior circulation stroke. - Transient Ischemic Attack (TIA): Considered due to dizziness, blurred vision, left lower extremity weakness, and slurred speech. Imaging to rule out posterior circulation stroke. Neurovascular evaluation if imaging negative. - Optic Neuritis: Considered due to blurred vision. Ophthalmology consulted. Imaging to rule out posterior circulation stroke. - Macular Degeneration: Considered due to blurred vision. Ophthalmology consulted. ED Course: - Neuro exam normal, visual zhao normal, 20/25 bilaterally. - Ophthalmology consulted. - Imaging ordered to rule out posterior circulation stroke. Final Assessment: 69-year-old female with dizziness, blurred vision, left lower extremity weakness, and slurred speech. Neuro exam normal. Ophthalmology consulted. Imaging ordered to rule out posterior circulation stroke. Clinical Impression: - Presyncope - Transient Ischemic Attack (TIA) - Optic Neuritis - Macular Degeneration Disposition: - Admission: Hospital for TIA workup due to symptom description. Follow-Up: Neurovascular evaluation. This patient has: >2 problem(s) addressed during this visit One of which includes: Acute or chronic illness/injury that poses a threat to life or bodily function Complexity of Workup I have reviewed the results of each ordered lab result. Remarkable studies include: erythrocytosis, monocytosis, elevated ESR andcRP I have reviewed prior documentation from an outside department, which includes: reviewed I have not obtained a history from an independent historian. I have independently viewed and interpreted the patient's radiologic imaging. I have not discussed the management with an external physician or QUINN as a citrix consultant. Morbidity/ Mortality Of Patient Management During this visit, the patient has received: Diagnosis or treatment significantly limited by social determinants of health There was a decision made regarding hospitalization or escalation of care On 03/06/2025, I saw and examined the patient. I discussed the history and physical examination with the resident and agree with the emergency department plan of care and patient disposition. MD Chikis Guido MD 03/06/251957 DEPARTMENT OF EMERGENT MEDICINE CHIEF COMPLAINT Chief Complaint Patient presents with Dizziness Blurred Vision [facility] Georgia Ochoa is a 69 y.o. female with a past medical history of lyme disease and vertigo who presents with dizziness and blurred vision. She states that she has had dizziness, progressively blurry vision, memory loss, slurred speech. The exact timeframe is unclear. She had provide multiple time frames. The shortness timeframe is development of symptoms in the past 2-3 weeks. She has had no new progressive symptoms in the past 24 hours. She presented to an [facility] due to worsening of her vision. They expressed concern for optic neuritis and recommended evaluation in the emergency department. She reports that her vision appears psych blackening of her bilateral peripheral vision. Her right vision is worse than her left. No eye pain, pain with extraocular eye movements, eye drainage, facial paresthesias, extremity paresthesias, upper extremity weakness, changes in hearing, chest pain, shortness of breath, nausea/vomiting, abdominal pain, dysuria, hematuria, diarrhea, melena, hematochezia. REVIEW OF SYSTEMS ROS is as described in the HPI PAST MEDICAL HISTORY Past Medical History: Diagnosis Date Hx of Lyme disease reports episodes 1990,1995, 2007, 2008,2011, 2023 Kidney stone SURGICAL HISTORY Past Surgical History: Procedure Laterality Date KIDNEY STONE SURGERY 1971 CURRENT MEDICATIONS Current Outpatient Medications Medication Sig atovaquone 750 MG/5ML Suspension oral suspension Take 5 mL by mouth 2 times daily. cefUROXime 500 MG tablet Take 1 tablet by mouth 2 times daily. Cholestyramine 4 GM/DOSE Powder MIX 4 GRAMS IN BEVERAGE AND DRINK FOUR TIMES DAILY Itraconazole 100 MG capsule Take 1 capsule by mouth daily. Tinidazole 500 MG tablet Take 1 tablet by mouth 2 times daily. ALLERGIES Allergies Allergen Reactions Ciprofloxacin Dyspnea and Hives dizziness Bactrim FAMILY HISTORY Family History Problem Relation Age of Onset Cataract Mother Hypertension Mother Heart Disease - Other Father Heart Disease - Other Other Hypertension Other Breast Cancer Neg Hx Ovarian Cancer Neg Hx Uterine Cancer Neg Hx Prostate Cancer Neg Hx Colon Cancer Neg Hx SOCIAL HISTORY Social History Socioeconomic History Marital status: Single Tobacco Use Smoking status: Never Smokeless tobacco: Never Vaping Use Vaping status: Never Used Substance and Sexual Activity Alcohol use: No Drug use: No Sexual activity: Not Currently Social Drivers of Health Financial Resource Strain: Low Risk (11/09/2023) Received from [facility] Overall Financial Resource Strain (CARDIA) Difficulty of Paying Living Expenses: Not very hard Food Insecurity: No Food Insecurity (11/03/2023) [facility] Hunger Vital Sign Worried About Running Out of Food in the Last Year: Never true Ran Out of Food in the Last Year: Never true Transportation Needs: No Transportation Needs (05/08/2024) Received from [facility] OASIS A1250: Transportation Lack of Transportation (Medical): No Lack of Transportation (Non-Medical): No Patient Unable or Declines to Respond: No Personal Safety: Not At Risk (11/03/2023) [facility] Humiliation, Afraid, Rape, and Kick questionnaire Fear of Current or Ex-Partner: No Emotionally Abused: No Physically Abused: No Sexually Abused: No Housing Stability: Low Risk (11/03/2023) Received from [facility] Housing Stability Vital Sign Unable to Pay for Housing in the Last Year: No Number of Places Lived in the Last Year: 2 Unstable Housing in the Last Year: No PHYSICAL EXAM BP 122/82 (BP Location: Left arm, BP Position: Sitting) Pulse 104 Temp 97.6 F (36.4 C) (Oral) Resp 14 Ht 1.676 m (5' 6) SpO2 94% BMI 30.67 kg/m Smoking Status Never Physical Exam Vitals and nursing note reviewed. HENT: Nose: Nose normal. Mouth/Throat: Mouth: Mucous membranes are moist. Pharynx: Oropharynx is clear. Eyes: Conjunctiva/sclera: Conjunctivae normal. Comments: 20/25 bilaterally Cardiovascular: Rate and Rhythm: Normal rate and regular rhythm. Pulses: Normal pulses. Heart sounds: Normal heart sounds. Comments: 2+ bilateral radial, dorsalis pedis, and tibialis posterior pulses Pulmonary: Effort: Pulmonary effort is normal. Breath sounds: Normal breath sounds. Abdominal: General: Abdomen is flat. Palpations: Abdomen is soft. Tenderness: There is no abdominal tenderness. Musculoskeletal: Right lower leg: No edema. Left lower leg: No edema. Skin: General: Skin is warm and dry. Neurological: Comments: Alert & Oriented to self, month, year, and place. Cranial Nerves CN I: Not assessed CN II, III, IV, : Visual zhao intact to confrontation bilaterally. PERRL. EOMI. No ptosis. CN V: No sensory deficits noted in the V1-V3 sensory distributions. CN VII: Equal smile, eye squeeze, and eyebrow raise. No facial droop observed. CN VIII: Hearing to finger rub intact bilaterally. No nystagmus. CN IX, X, XII: Uvula and tongue midline. Tongue has full ROM. Even palate raise. No dysarthria. No hoarseness. CN XI: Equal shoulder shrug and lateral head movements. Strength 5/5 strength in bilateral hand squeeze, arm flexion, arm extension, shoulder internal rotation, shoulder external rotation, shoulder abduction, shoulder adduction, plantarflexion, dorsiflexion, knee flexion, knee extension, hip flexion, hip extension, hip abduction, and hip adduction. No pronator drift. Sensation No sensory deficit to light touch over the bilateral upper and lower extremities in a dermatomal distribution. Coordination No dysmetria noted on [id number] test. No dysdiadochokinesia noted on rapid alternating hand movement. No ataxia noted on [id number] testing. ED COURSE & MEDICAL DECISION MAKING ED Course as of 03/06/25 2356 ThuMar 06, 2025 2354 ECG Sinus tachycardia at 100 BPM. No prolongation or shortening of PA or QRS intervals. QTc [address] segment elevations or depressions. No T wave inversions. Results for orders placed or performed during the hospital encounter of 03/06/25 CHEM 7 (LYTES,BUN,CREA,GLUC) Result Value Ref Range Sodium 136 135 - 145 mmol/L Potassium 3.7 3.5 - 5.0 mmol/L Chloride 104 98 - 108 mmol/L CO2 24 21 - 31 mmol/L Glucose 114 Nonfastin-179 mg/dL; Fastin-99 mg/dL BUN 11 7 - 25 mg/dL Creatinine 0.56 0.50 - 1.20 mg/dL Bun/Crea Ratio 20 Osmolality (Calculated) 285 278 - 305 mOsm/kg Anion Gap 12 7 - 17 mmol/L eGFR, CKD-EPI, Female >90 >=60 mL/min/1.73m2 PHOSPHATE, INORGANIC Result Value Ref Range Phosphorous 3.0 2.2 - 4.6 mg/dL MAGNESIUM Result Value Ref Range Magnesium 1.8 1.6 - 2.6 mg/dL CALCIUM Result Value Ref Range Calcium 9.5 8.6 - 10.5 mg/dL HIGH SENSITIVITY TROPONIN I - SINGLE ORDER Result Value Ref Range hs-Troponin I <3 <34 ng/L PT,INR,PTT Result Value Ref Range PT 14.8 (H) 11.9 - 14.2 sec INR 1.2 (H) 0.9 - 1.1 PTT 31.5 24.0 - 34.3 sec NT-PRO B-TYPE NATRIURETIC PEPTIDE Result Value Ref Range NT-Pro B-Type Natriuretic Peptide 104 <=540 pg/mL CBC AND ELECTRONIC DIFF Result Value Ref Range WBC Count 8.57 3.99 - 11.19 K/uL RBC Count 4.96 3.91 - 5.04 M/uL Hemoglobin 16.0 (H) 11.4 - 15.2 g/dL Hematocrit 45.7 (H) 34.9 - 44.3 % Mean Cell Volume 92.1 79.6 - 97.7 fL Mean Cell Hgb 32.3 25.9 - 33.9 pg Mean Cell Hgb Conc 35.0 31.4 - 35.9 g/dL RBC Distribution 13.2 10.8 - 14.9 % Platelet Count 228 150 - 393 K/uL Mean Platelet Volume 9.5 8.5 - 12.2 fL DIFF STATUS Electronic Differential Segs + Bands Auto 64.7 % Immature Grans % 1.1 % Lymphocyte % Auto 17.7 % Monocyte % Auto 15.4 % Eosinophil % Auto 0.5 % Basophil % Auto 0.6 % Nucleated RBC 0.0 <=0.2 /100 WBC Segs + Bands,Absolute Auto 5.55 1.64 - 7.28 K/uL Immature Grans Absolute 0.09 (H) <=0.08 K/uL Abs Lymph Auto 1.52 1.16 - 3.51 K/uL Abs Carlton Auto 1.32 (H) 0.22 - 0.87 K/uL Abs Eos Auto 0.04 0.00 - 0.42 K/uL Abs Baso Auto 0.05 0.00 - 0.15 K/uL CT HEAD WITHOUT CONTRAST Final Result IMPRESSION: No acute intracranial findings. I personally viewed and interpreted these images and I have reviewed and approved this report. ANGIO BRAIN/NECK Final Result IMPRESSION: No significant stenosis in the arteries of the neck and brain.. I personally viewed and interpreted these images and I have reviewed and approved this report. /HRT MACULA OU (Results Pending) OCT OPTIC NERVE OU (Results Pending) FUNDUS PHOTOGRAPHY-OU (Results Pending) MRI BRAIN WITH AND WITHOUT CONTRAST (Results Pending) MRI ORBITS WITH AND WITHOUT CONTRAST (Results Pending) Medical Decision Making 69 y.o. female with a past medical history of lyme disease and vertigo who presents with dizziness and blurred vision. Oral low suspicion for emergent pathology given the chronicity of the patient's symptoms. The patient was sent to the emergency department for evaluation of optic neuritis. Ophthalmology was consulted. They suspect the patient is not having optic neuritis, but recommended MRI brain with and without an MRI orbits with and without contrast. CT head and CT angio brain and neck were obtained to evaluate for evidence of old stroke. EKG and troponin obtained to evaluate for cardiac etiology of the patient's reported dizziness. These were negative for acute ischemic or arrhythmogenic changes. Patient is not have any significant electrolyte derangements or anemia. Given nonemergent etiology and need for MRI, plan to place patient in the observation unit for further evaluation. Amount and/or Complexity of Data Reviewed Labs: ordered. Radiology: ordered. ECG/medicine tests: ordered. Decision-making details documented in ED Course. Risk Prescription drug management. Decision regarding hospitalization. Christal White MD Resident 03/06/25 7421 Images from the original note were not included. Pt arrives via private ambulance from [facility]. Multiple complaints. Recommended to come to ER for specialist consult. ON arrival pt denies any new symptoms in the past 24 hours- pt states her vision issues actually started 3 days ago. Pt is alert and orientated x 4. Is difficulty to follow, poor historian though. 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 Symptom onset of slurred speech is couple of weeks. Vision changes started yesterday. Patient was examined by me she is A&O x4, negative neuro focal deficits. The patient is ambulatory. The patient was also examined by attending physician. agreed the patient needs to be transferred to the main [facility] for further evaluation of her vision changes and and fatigue. The patient needs to be seen by Ophthalmology. Patient was transferred by critical care. Assessment & Plan Initial Assessment: Georgia Ochoa presents with significant vision changes, slurred speech, and severe headache. Symptoms have progressively worsened over the past few weeks, raising concerns for a potential stroke or other neurological issues. Differential Diagnosis: - Stroke: Vision changes, slurred speech, headache. Referral to [facility] for neurological evaluation. - Lyme disease exacerbation: History of Lyme disease, but less likely due to negative tests and current symptoms. No immediate plan in ED. ED Course: - 03/06/2025: Patient evaluated for vision changes, slurred speech, and headache. - Neurological assessment conducted. - Decision made to refer patient to [facility] for further evaluation. Final Assessment: Georgia Ochoa presents with vision changes, slurred speech, and severe headache. Symptoms concerning for potential stroke or other neurological issues. Referral to [facility] for comprehensive evaluation and management. Clinical Impression: - Stroke - Lyme disease exacerbation Disposition: - Transfer: [facility] for further evaluation due to lack of necessary resources at current facility. Pt coming from [facility] with concern for fatigue, dizziness, slurred speech, and blurred vision. Symptoms have been persistent for 3 weeks. Vision changes started last night. PMHx Lyme Disease. Recs for ophthalmology documented in this encounter [facility] 03-07-2025 Hospital Discharge instructions Oneida Vega APRN-INTERNAL MEDICINE NURSE PRACTITIONER - 03/07/2025 2:18 PM EDT Thank you for choosing [facility] in your time of healthcare need and for allowing us to answer your questions today. If any other questions or concerns arise, please do not hesitate to call the [facility] ED Clinical [employer]otive [employer] Counterperson at . At this time, there are not signs of immediately serious illness or injury, but conditions can change and/or develop with time, and, not all signs or symptoms may have been shown at this visit. Please return to the ER or see a doctor immediately if you have worsening symptoms, inability to see, numbness or tingling in her arms or other signs of stroke Below are the labs and imaging that were obtained during your visit. Please provide this to your primary care provider at your follow up. Results for orders placed or performed during the hospital encounter of 03/06/25 CHEM 7 (LYTES,BUN,CREA,GLUC) Result Value Ref Range Sodium 136 135 - 145 mmol/L Potassium 3.7 3.5 - 5.0 mmol/L Chloride 104 98 - 108 mmol/L CO2 24 21 - 31 mmol/L Glucose 114 Nonfastin-179 mg/dL; Fastin-99 mg/dL BUN 11 7 - 25 mg/dL Creatinine 0.56 0.50 - 1.20 mg/dL Bun/Crea Ratio 20 Osmolality (Calculated) 285 278 - 305 mOsm/kg Anion Gap 12 7 - 17 mmol/L eGFR, CKD-EPI, Female >90 >=60 mL/min/1.73m2 PHOSPHATE, INORGANIC Result Value Ref Range Phosphorous 3.0 2.2 - 4.6 mg/dL MAGNESIUM Result Value Ref Range Magnesium 1.8 1.6 - 2.6 mg/dL CALCIUM Result Value Ref Range Calcium 9.5 8.6 - 10.5 mg/dL HIGH SENSITIVITY TROPONIN I - SINGLE ORDER Result Value Ref Range hs-Troponin I <3 <34 ng/L PT,INR,PTT Result Value Ref Range PT 14.8 (H) 11.9 - 14.2 sec INR 1.2 (H) 0.9 - 1.1 PTT 31.5 24.0 - 34.3 sec NT-PRO B-TYPE NATRIURETIC PEPTIDE Result Value Ref Range NT-Pro B-Type Natriuretic Peptide 104 <=540 pg/mL CBC AND ELECTRONIC DIFF Result Value Ref Range WBC Count 8.57 3.99 - 11.19 K/uL RBC Count 4.96 3.91 - 5.04 M/uL Hemoglobin 16.0 (H) 11.4 - 15.2 g/dL Hematocrit 45.7 (H) 34.9 - 44.3 % Mean Cell Volume 92.1 79.6 - 97.7 fL Mean Cell Hgb 32.3 25.9 - 33.9 pg Mean Cell Hgb Conc 35.0 31.4 - 35.9 g/dL RBC Distribution 13.2 10.8 - 14.9 % Platelet Count 228 150 - 393 K/uL Mean Platelet Volume 9.5 8.5 - 12.2 fL DIFF STATUS Electronic Differential Segs + Bands Auto 64.7 % Immature Grans % 1.1 % Lymphocyte % Auto 17.7 % Monocyte % Auto 15.4 % Eosinophil % Auto 0.5 % Basophil % Auto 0.6 % Nucleated RBC 0.0 <=0.2 /100 WBC Segs + Bands,Absolute Auto 5.55 1.64 - 7.28 K/uL Immature Grans Absolute 0.09 (H) <=0.08 K/uL Abs Lymph Auto 1.52 1.16 - 3.51 K/uL Abs Carlton Auto 1.32 (H) 0.22 - 0.87 K/uL Abs Eos Auto 0.04 0.00 - 0.42 K/uL Abs Baso Auto 0.05 0.00 - 0.15 K/uL SEDIMENTATION RATE, AUTOMATED Result Value Ref Range ESR Westergren 30 (H) <30 mm/hr C REACTIVE PROTEIN Result Value Ref Range C Reactive Protein 82.05 (H) <10.00 mg/L MRI ORBITS WITH AND WITHOUT CONTRAST Final Result IMPRESSION: No evidence for optic neuritis or other acute orbital finding. BRAIN WITH AND WITHOUT CONTRAST Final Result IMPRESSION: No acute infarct or hemorrhage in the brain. Chronic microvascular ischemic changes. Chronic thickening of the pituitary stalk, of doubtful clinical significance given the stability since at least 2011 HEAD WITHOUT CONTRAST Final Result IMPRESSION: No acute intracranial findings. I personally viewed and interpreted these images and I have reviewed and approved this report. ANGIO BRAIN/NECK Final Result IMPRESSION: No significant stenosis in the arteries of the neck and brain.. I personally viewed and interpreted these images and I have reviewed and approved this report. /HRT MACULA OU (Results Pending) OCT OPTIC NERVE OU (Results Pending) FUNDUS PHOTOGRAPHY-OU (Results Pending) The following attachments cannot be sent through Care Everywhere.Eye Basics: General Info ([place] Citizen)Unknown Diagnosis ([place] Citizen)documented in this encounter [facility] 03-07-2025 Physician Emergency department Note CDU Plan of Care Note Blurred vision, slurred speech Opthalmology Neurology MRI brain and orbits ED Course as of 03/07/255 ThuMar 07, 2025 0912 No needs from PT 1243 Neurology: So at this point, her symptoms are not very localizable to a particular neurologic distribution or etiology. We have low concern these are seizures. We will also follow up her brain/orbit MRIs w/ w/o contrast and see if it shows anything. She should be referred to neurology cognitive clinic for more alf follow-up of her cognitive thoughts Final dispo pending MRI results and final recs at this time Coco Irby MD Resident 03/07/25 1416 [facility] 03-07-2025 Progress note Formatting of t his note is different from the original. CDU/OBSERVATION ATTENDING NOTE Initial Medical Decision Making: Patient presented to the ED with dizziness and blurry vision. Patient with questionable hx of Lyme disease. Placed in Observation for MRI, PT, nuro, ophthalmology. Dispo pending above. Given this presentation, the differential diagnosis includes life/limb threatening disease(s), including but not limited to: Stroke, Lyme Medical Decision Making Amount and/or Complexity of Data Reviewed External Data Reviewed: notes. Labs: ordered. Radiology: ordered. Risk OTC drugs. Prescription drug management. Decision regarding hospitalization. I saw and evaluated the patient with QUINN. I provided a substantive portion of the care for this patient. I personally performed all aspects of the medical decision making for this encounter. I have reviewed and verified this with the QUINN so that it accurately reflects our care. Updates: CC Chief Complaint Patient presents with Dizziness Blurred Vision HPI Georgia Ochoa is a 69 y.o. year old female who presents with slurred speech, dizziness. Physical Exam: BP 115/68 (BP Location: Right arm, BP Position: Lying) Pulse 94 Temp 96.7 F (35.9 C) (Oral) Resp 15 Ht 1.676 m (5' 6) SpO2 97% BMI 30.67 kg/m Smoking Status Never Constitutional: Pt appears well-developed and well-nourished. No distress. I have personally seen and examined this patient. I have fully participated in the care of this patient. I have reviewed pertinent clinical information, including history, physical exam and plan of care with the Advanced Practice Practitioner ( LANDSCAPE FOREMAN or PA) involved in this patient's care. I discussed the history and examination with the QUINN and agree with the plan of care. Disposition: Pending, likely DC I have personally spent 31 minutes or more in discharge time which includes: final examination, preparing discharge instructions, discharge summary, prescriptions, and ambulatory referrals. Clinical Impression: 1) Blurred vision, slurred speech, dizziness. No EKG Interpretation for this patient [facility] 03-07-2025 Emergency department Note Care Management Progress Note ED CM Observation Note After review of chart and discussion with CDU team in morning rounds, patient's discharge plan is pending PT/OT, MRI brain and orbits, ophthalmology recommendations, neurology consult. Should discharge needs arise please contact aboriginal education teacher. FILI Durham BSN, RN, [facility] Clinical Automotive [employer] Counterperson [facility] 03-07-2025 Consult note Associated Order (s): IP CONSULT TO NEUROLOGY NEUROLOGY CONSULTATION NOTE Reason for consultation: Dizziness, blurred vision, slurred speech History of present illness: Georgia Ochoa is a 69 y.o. right-handed female with history of Lyme Disease (with concern for multiple recurrent infections or Lyme flares), kidney stones, schizotypal personality disorder presenting with dizziness, blurred vision, slurred speech. Ms. Ochoa presents 03/06 with concerns for blurred vision, dizziness, and slurred speech over the past three weeks. Her symptoms date back several years (started around 2022), however, have worsened more so since July, and again more significantly over the prior 3 weeks. The event that prompted presentation this time was difficulties with vision. When waking up day of presentation, she was not able to see, stating that the floor looked black and she was unable to see her jeans to put them on. These visual changes/deficiencies continued prompting her to present to on 03/06. had concerns based on her history for optic neuritis, thus recommended presentation to [facility] for further investigation. Since last July, she has been having intermittent black outs in her vision occurring in the mornings. She will have dark spots occur in her vision, both central and peripheral starting in the morning time, but she still is able to see some things. These vision change only occur when she is at home due to her house being dark. Her vision can return to normal by around 11 AM, usually several hours after she wakes up. There have been on occasion her vision improving faster (10-15 minutes) when she is at faith. At times, she sees orange halos around light sources. She has these events happen daily, progressively worsening over the months. Back in 2022, she first started noticing vision changes, reporting seeing abnormal shapes (red circles, or dark circles with holes in the center), only when closing her eyes, but then has progressed with eyes open. Today she reports that she is able to see the outlines of our faces. She reports that in the evening, her vision improves. She is very distressed about not being able to drive, but reports that her vision doesn't bother her when driving and that she can drive in the daytime and not the night time due to poor night vision. She also reports intermittent dizziness, described as unsteadiness on her feet. Does not seem to have orthostatic component. No falls. She does not report it as vertigo or spinning sensation and not clearly positional/triggered by quick movements. She did report headache severe on Thursday at the top of her head, she does not typically get headaches prior to and has not had one since. She denies eye pain, jaw claudication, unexplained weight loss. She also endorses cognitive issues, worsening over the past several months. She describes these as difficulties with her executive functioning. She gives examples of not being able to sort her mail, do laundry, manage her paperwork or calendars, remembering the day of the week or tasks. This has been going on for some time, however, feels different than brain fog she has experienced with prior Lyme flares. 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 She has an extensive history of reported Lyme Disease, starting in 1990 that was confirmed by [facility]. She has had several additional Lyme Disease exacerbations in which she has been treated with antibiotics for, in 1995, 2007, 2011, 2015, 2021. Some of these have been associated with tick bites, sometimes rashes (bulls-eye or butterfly rashes on her arms). She reports her typical Lyme Flares are loss of taste/smell, being unable to watch TV, and having ADHD/OCD symptoms (she does report liking these increased mood/energy symptoms). She reports antibiotics have been helpful to stop prior flares but she has not treated her current symptoms fast enough and believes it is too late and she will be having these symptoms forever. 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 She also has been seeing a LANDSCAPE FOREMAN in [place] who is prescribing her atovaquone-proguanil. 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 Current Lyme titers (12/26/24) have been unremarkable, obtained at the clinic in [place]. Ophthalmology evaluated her in the ED with excellent visual acuity, normal IOP, no rAPD. Noted peripapillary atrophy and crowded nerves OU as well as guttata. CTH and CTA were unremarkable Review of Systems: Pertinent items are noted in the HPI, all other systems were queried and are negative. Past Medical History: Diagnosis Date Hx of Lyme disease reports episodes 1990,1995, 2007, 2008,2011, 2023 Kidney stone Past Surgical History: Procedure Laterality Date KIDNEY STONE SURGERY 1971 Family History Problem Relation Age of Onset Cataract Mother Hypertension Mother Heart Disease - Other Father Heart Disease - Other Other Hypertension Other Breast Cancer Neg Hx Ovarian Cancer Neg Hx Uterine Cancer Neg Hx Prostate Cancer Neg Hx Colon Cancer Neg Hx Social History Socioeconomic History Marital status: Single Spouse name: Not on file Number of children: Not on file Years of education: Not on file Highest education level: Not on file Occupational History Not on file Tobacco Use Smoking status: Never Smokeless tobacco: Never Vaping Use Vaping status: Never Used Substance and Sexual Activity Alcohol use: No Drug use: No Sexual activity: Not Currently Other Topics Concern Not on file Social History Narrative Not on file Social Drivers of Health Financial Resource Strain: Low Risk (11/09/2023) Received from [facility] Overall Financial Resource Strain (CARDIA) Difficulty of Paying Living Expenses: Not very hard Food Insecurity: No Food Insecurity (11/03/2023) Received from [facility] Hunger Vital Sign Worried About Running Out of Food in the Last Year: Never true Ran Out of Food in the Last Year: Never true Transportation Needs: No Transportation Needs (05/08/2024) Received from [facility] OASIS A1250: Transportation Lack of Transportation (Medical): No Lack of Transportation (Non-Medical): No Patient Unable or Declines to Respond: No Physical Activity: Not on file Stress: Not on file Social Connections: Not on file Personal Safety: Not At Risk (11/03/2023) Received from [facility] Humiliation, Afraid, Rape, and Kick questionnaire Fear of Current or Ex-Partner: No Emotionally Abused: No Physically Abused: No Sexually Abused: No Housing Stability: Low Risk (11/03/2023) Received from [facility] Housing Stability Vital Sign Unable to Pay for Housing in the Last Year: No Number of Places Lived in the Last Year: 2 Unstable Housing in the Last Year: No Allergies Allergen Reactions Ciprofloxacin Dyspnea and Hives dizziness Bactrim (Not in a hospital admission) Current medications: Current Facility-Administered Medications Medication Dose Route Frequency Provider Last Rate Last Admin Acetaminophen (TYLENOL) tablet 650 mg 650 mg Oral Q6H PRN Mariah N SAMPSON Garcia alum/mag hydrox.-simethicone oral suspension 30 mL 30 mL Oral Q6H PRN Mariah N SAMPSON Garcia atovaquone-proguanil (MALARONE) 250-100 MG tablet 2 tablet 2 tablet Oral BID w/meals Mariah N SAMPSON Garcia 2 tablet at 03/07/25 1001 Sodium chloride (PF) 0.9 % injection 1-100 mL 1-100 mL Intravenous Once PRN Nadine Ward, DO Current Outpatient Medications Medication Sig Dispense Refill atovaquone 750 MG/5ML Suspension oral suspension Take 5 mL by mouth 2 times daily. cefUROXime 500 MG tablet Take 1 tablet by mouth 2 times daily. Cholestyramine 4 GM/DOSE Powder MIX 4 GRAMS IN BEVERAGE AND DRINK FOUR TIMES DAILY Itraconazole 100 MG capsule Take 1 capsule by mouth daily. Tinidazole 500 MG tablet Take 1 tablet by mouth 2 times daily. Physical Examination Temp: [96.7 F (35.9 C)-98.4 F (36.9 C)] 98.2 F (36.8 C) Pulse (Heart Rate): [89-113] 101 Resp Rate: [10-16] 16 BP: (115-153)/(63-90) 123/76 O2 Sat (%): [92 %-97 %] 95 % Body mass index is 30.67 kg/m . General: Laying comfortably in bed; in no acute distress. HENT: Normal oropharynx and mucosa. Normal external appearance of ears and nose. Neck: Supple, no pain or tenderness CV: RRR, No peripheral edema. Ext: No cyanosis, edema, or deformity Skin: No rash. Normal palpation of skin. Musculoskeletal: Full range of motion; no joint tenderness. Normal digits and nails by inspection. No clubbing. Neurological Examination Mental status: awake and alert; oriented to person, place, year, and month; good attention. Normal mood and affect though very tangential and at times emotional over her diagnosis. Able to remember 3 words after 5 minutes, do simple math, follow complex commands crossing midline, subtract serial 7s with accuracy, state the months of the year backwards fairly quickly Speech/language: fluent; comprehension intact; object naming intact; repetition intact. Cranial nerves: CN II: Visual zhao intact to confrontation. PERRL. Normal conjunctivae and lids. When asked to identify color of glove, states she cannot see the glove but knows the color is blue. 20/20 [place]. 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 No nystagmus. CN V: Reports decreased sensation over left face with midline splitting over forehead, on repeat testing of her chin, stated both sides were equal CN VII: Facial strength normal with symmetric movement. CN VIII: Hearing is grossly intact. CN IX and X: Soft palate elevates symmetrically in the midline CN XI: Shoulder shrug and sternocleidomastoid strength (R/L) 5/5 CN XII: Tongue is midline with normal movement; no fasciculations. Motor: Normal bulk and tone. No pronator drift. SA EE EF WE WF DI HF KE KF DF PF Right 5 5 5 5 5 5 5 5 5 5 5 Left 5 5 5 5 5 5 5 5 5 5 5 Reflexes: Right Left Comments Biceps 2 2 Triceps 2 2 Brachioradialis 2 2 Patellar 2 2 Achilles 2 2 Hines Babinski Down Down Coordination: Mrhvyg-gk-jpwj intact bilaterally. Pniu-hv-icxp intact bilaterally. Rapid alternating movements are normal. Cerebellar: HINTS assessment normal Sensation: Comments Light touch Intact throughout Pin prick Temperature Vibration Proprioception Gait: Normal casual gait with slightly narrow stride length. Reported she was not able to walk on heels or toes. Laboratory data: Lab Results Component Value Date WBC 8.57 03/06/2025 HGB 16.0 (H) 03/06/2025 HCT 45.7 (H) 03/06/2025 PLATELET 228 03/06/2025 MCV 92.1 03/06/2025 Lab Results Component Value Date SODIUM 136 03/06/2025 POTASSIUM 3.7 03/06/2025 CHLORIDE 104 03/06/2025 CO2 24 03/06/2025 BUN 11 03/06/2025 CREATSERUM 0.56 03/06/2025 Lab Results Component Value Date ALT 19 10/13/2024 AST 18 10/13/2024 ALKPHOS 168 (H) 10/13/2024 BILITOTAL 0.5 10/13/2024 BILIDIRECT LAB CANC-Specimen not received in laboratory. 05/14/2008 Lab Results Component Value Date B12 435 03/29/2012 FOLATE 11.54 03/29/2012 TSH 1.104 03/28/2012 T4FREE 1.26 03/28/2012 HIV1X2 NONREACTIVE Normal is nonreactive 01/24/1998 AMMONIA 12 03/29/2012 Lab Results Component Value Date LDLCALC 94 02/15/2012 HDL 40 (L) 02/15/2012 CHOLESTEROL 152 02/15/2012 TRIG 90 02/15/2012 Imaging/diagnostic procedures: CT HEAD WITHOUT CONTRAST Final Result IMPRESSION: No acute intracranial findings. I personally viewed and interpreted these images and I have reviewed and approved this report. ANGIO BRAIN/NECK Final Result IMPRESSION: No significant stenosis in the arteries of the neck and brain.. I personally viewed and interpreted these images and I have reviewed and approved this report. /HRT MACULA OU (Results Pending) OCT OPTIC NERVE OU (Results Pending) FUNDUS PHOTOGRAPHY-OU (Results Pending) MRI BRAIN WITH AND WITHOUT CONTRAST (Results Pending) MRI ORBITS WITH AND WITHOUT CONTRAST (Results Pending) Impression: Georgia Ochoa is a 69 y.o. right-handed female with history of Lyme Disease (with concern for multiple recurrent infections or Lyme flares), kidney stones, schizotypal personality disorder presenting with dizziness, blurred vision, slurred speech. Ms. Ochoa presents with longstanding history of constellation of symptoms, including loss of vision at times/seeing shapes/visual phenomenon, dizziness/dysequilibrium, and cognitive changes. This has been occurring for the past ~2 years but has worsened since July and again more so over the past few weeks. She attributes these symptoms to prior Lyme Disease flares, however, does state that the severity and type of symptoms are different. It is difficult to localize to a single neurologic structure. Have lower suspicion for entities such as optic neuritis given reassuring neurologic/ophthalmologic exam, temporal arteritis (given lack of temporal pain, jaw claudication, duration of symptoms), stroke, encephalitis (given lack of focal deficits, cognition and attention intact, stable vitals), low concern these are seizures. Agree with brain and orbit MRI to investigate enhancement/hyperintensities which could help phenotype her presentation. Her Lyme evaluation (IgG) more recently (12/2024) has been negative. There may be a component of functional neurologic symptoms overlying her presentation. Would benefit from more thorough battery of cognitive testing to help assist her with long-term cognitive function/ADLs. Recommendations: - Will follow-up on brain and orbits MRI with and without contrast - Recommend follow-up with ophthalmology outpatient and her Lyme specialist. Could consider discussion with ID for long-standing Lyme diagnosis - Recommend referral to cognitive neurology for difficulties with ADLs/cognition for formal testing/evaluation Thank you for the consultation. If you have any further questions, please contact the forward air controller/air officer neurology consultation resident. Case seen and staffed with Dr. Juárez . Signed, Zulma Narayanan DO PGY-4 Neurology Cosigned by Tatyana Juárez MD at 03/07/2025 3:20 PM EDT Associated attestation - Tatyana Juárez MD - 03/07/2025 3:20 PM EDT I have seen and examined the patient today on 03/07/25. I agree with the history, examination, and medical decision making as noted by the resident. I have personally reviewed all the data including history, medical records, lab/radiology images/medical testing for today's encounter. Consult for chronic blurry vision, dizziness, non-specific symptoms 69 yo woman, multiple prior reports of chronic Lyme Disease but serology here at [facility] has been negative. Had Lyme testing in [place] and IgG positive but IgM negative and western blot negative History changing between providers Months to years of intermittent blurry vision Chronic slurred speech, intermittent since 2022 Also endorses chronic cognitive issues Dilated exam shows PPA and crowded nerves OU, but no edema or pallor. Similar to 2012 exam She is occupied by lyme disease and worried it is the cause of her symptoms No headaches ESR 30 CRP 82 CTH with no acute findings Exam with no focal findings Pending MRI brain and orbits w/wo If negative, follow up with ophth clinic for blurry vision, and with neurology clinic for cognitive eval Reversible dementia labs Cristal Juárez MD [facility] 03-07-2025 Consult note Associated Order (s): IP CONSULT TO NEUROLOGY NEUROLOGY CONSULTATION NOTE Reason for consultation: Dizziness, blurred vision, slurred speech History of present illness: Georgia Ochoa is a 69 y.o. right-handed female with history of Lyme Disease (with concern for multiple recurrent infections or Lyme flares), kidney stones, schizotypal personality disorder presenting with dizziness, blurred vision, slurred speech. Ms. Ochoa presents 03/06 with concerns for blurred vision, dizziness, and slurred speech over the past three weeks. Her symptoms date back several years (started around 2022), however, have worsened more so since July, and again more significantly over the prior 3 weeks. The event that prompted presentation this time was difficulties with vision. When waking up day of presentation, she was not able to see, stating that the floor looked black and she was unable to see her jeans to put them on. These visual changes/deficiencies continued prompting her to present to on 03/06. had concerns based on her history for optic neuritis, thus recommended presentation to [facility] for further investigation. Since last July, she has been having intermittent black outs in her vision occurring in the mornings. She will have dark spots occur in her vision, both central and peripheral starting in the morning time, but she still is able to see some things. These vision change only occur when she is at home due to her house being dark. Her vision can return to normal by around 11 AM, usually several hours after she wakes up. There have been on occasion her vision improving faster (10-15 minutes) when she is at faith. At times, she sees orange halos around light sources. She has these events happen daily, progressively worsening over the months. Back in 2022, she first started noticing vision changes, reporting seeing abnormal shapes (red circles, or dark circles with holes in the center), only when closing her eyes, but then has progressed with eyes open. Today she reports that she is able to see the outlines of our faces. She reports that in the evening, her vision improves. She is very distressed about not being able to drive, but reports that her vision doesn't bother her when driving and that she can drive in the daytime and not the night time due to poor night vision. She also reports intermittent dizziness, described as unsteadiness on her feet. Does not seem to have orthostatic component. No falls. She does not report it as vertigo or spinning sensation and not clearly positional/triggered by quick movements. She did report headache severe on Thursday at the top of her head, she does not typically get headaches prior to and has not had one since. She denies eye pain, jaw claudication, unexplained weight loss. She also endorses cognitive issues, worsening over the past several months. She describes these as difficulties with her executive functioning. She gives examples of not being able to sort her mail, do laundry, manage her paperwork or calendars, remembering the day of the week or tasks. This has been going on for some time, however, feels different than brain fog she has experienced with prior Lyme flares. 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 She has an extensive history of reported Lyme Disease, starting in 1990 that was confirmed by [facility]. She has had several additional Lyme Disease exacerbations in which she has been treated with antibiotics for, in 1995, 2007, 2011, 2015, 2021. Some of these have been associated with tick bites, sometimes rashes (bulls-eye or butterfly rashes on her arms). She reports her typical Lyme Flares are loss of taste/smell, being unable to watch TV, and having ADHD/OCD symptoms (she does report liking these increased mood/energy symptoms). She reports antibiotics have been helpful to stop prior flares but she has not treated her current symptoms fast enough and believes it is too late and she will be having these symptoms forever. 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 She also has been seeing a [facility] in [place] who is prescribing her atovaquone-proguanil. 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 Current Lyme titers (12/26/24) have been unremarkable, obtained at the clinic in [place]. Ophthalmology evaluated her in the ED with excellent visual acuity, normal IOP, no rAPD. Noted peripapillary atrophy and crowded nerves OU as well as guttata. CTH and CTA were unremarkable Review of Systems: Pertinent items are noted in the HPI, all other systems were queried and are negative. Past Medical History: Diagnosis Date Hx of Lyme disease reports episodes 1990,1995, 2007, 2008,2011, 2023 Kidney stone Past Surgical History: Procedure Laterality Date KIDNEY STONE SURGERY 1971 Family History Problem Relation Age of Onset Cataract Mother Hypertension Mother Heart Disease - Other Father Heart Disease - Other Other Hypertension Other Breast Cancer Neg Hx Ovarian Cancer Neg Hx Uterine Cancer Neg Hx Prostate Cancer Neg Hx Colon Cancer Neg Hx Social History Socioeconomic History Marital status: Single Spouse name: Not on file Number of children: Not on file Years of education: Not on file Highest education level: Not on file Occupational History Not on file Tobacco Use Smoking status: Never Smokeless tobacco: Never Vaping Use Vaping status: Never Used Substance and Sexual Activity Alcohol use: No Drug use: No Sexual activity: Not Currently Other Topics Concern Not on file Social History Narrative Not on file Social Drivers of Health Financial Resource Strain: Low Risk (11/09/2023) Received from [facility] Overall Financial Resource Strain (CARDIA) Difficulty of Paying Living Expenses: Not very hard Food Insecurity: No Food Insecurity (11/03/2023) Received from [facility] Hunger Vital Sign Worried About Running Out of Food in the Last Year: Never true Ran Out of Food in the Last Year: Never true Transportation Needs: No Transportation Needs (05/08/2024) Received from [facility] OASIS A1250: Transportation Lack of Transportation (Medical): No Lack of Transportation (Non-Medical): No Patient Unable or Declines to Respond: No Physical Activity: Not on file Stress: Not on file Social Connections: Not on file Personal Safety: Not At Risk (11/03/2023) Received from [facility] Humiliation, Afraid, Rape, and Kick questionnaire Fear of Current or Ex-Partner: No Emotionally Abused: No Physically Abused: No Sexually Abused: No Housing Stability: Low Risk (11/03/2023) Received from [facility] Housing Stability Vital Sign Unable to Pay for Housing in the Last Year: No Number of Places Lived in the Last Year: 2 Unstable Housing in the Last Year: No Allergies Allergen Reactions Ciprofloxacin Dyspnea and Hives dizziness Bactrim (Not in a hospital admission) Current medications: Current Facility-Administered Medications Medication Dose Route Frequency Provider Last Rate Last Admin Acetaminophen (TYLENOL) tablet 650 mg 650 mg Oral Q6H PRN Mariah N SAMPSON Garcia alum/mag hydrox.-simethicone oral suspension 30 mL 30 mL Oral Q6H PRN Mariah N SAMPSON Garcia atovaquone-proguanil (MALARONE) 250-100 MG tablet 2 tablet 2 tablet Oral BID w/meals Mariah N SAMPSON Garcia 2 tablet at 03/07/25 1001 Sodium chloride (PF) 0.9 % injection 1-100 mL 1-100 mL Intravenous Once PRN Nadine Ward, Current Outpatient Medications Medication Sig Dispense Refill atovaquone 750 MG/5ML Suspension oral suspension Take 5 mL by mouth 2 times daily. cefUROXime 500 MG tablet Take 1 tablet by mouth 2 times daily. Cholestyramine 4 GM/DOSE Powder MIX 4 GRAMS IN BEVERAGE AND DRINK FOUR TIMES DAILY Itraconazole 100 MG capsule Take 1 capsule by mouth daily. Tinidazole 500 MG tablet Take 1 tablet by mouth 2 times daily. Physical Examination Temp: [96.7 F (35.9 C)-98.4 F (36.9 C)] 98.2 F (36.8 C) Pulse (Heart Rate): [89-113] 101 Resp Rate: [10-16] 16 BP: (115-153)/(63-90) 123/76 O2 Sat (%): [92 %-97 %] 95 % Body mass index is 30.67 kg/m . General: Laying comfortably in bed; in no acute distress. HENT: Normal oropharynx and mucosa. Normal external appearance of ears and nose. Neck: Supple, no pain or tenderness CV: RRR, No peripheral edema. Ext: No cyanosis, edema, or deformity Skin: No rash. Normal palpation of skin. Musculoskeletal: Full range of motion; no joint tenderness. Normal digits and nails by inspection. No clubbing. Neurological Examination Mental status: awake and alert; oriented to person, place, year, and month; good attention. Normal mood and affect though very tangential and at times emotional over her diagnosis. Able to remember 3 words after 5 minutes, do simple math, follow complex commands crossing midline, subtract serial 7s with accuracy, state the months of the year backwards fairly quickly Speech/language: fluent; comprehension intact; object naming intact; repetition intact. Cranial nerves: CN II: Visual zhao intact to confrontation. PERRL. Normal conjunctivae and lids. When asked to identify color of glove, states she cannot see the glove but knows the color is blue. 20/20 [place]. 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 No nystagmus. CN V: Reports decreased sensation over left face with midline splitting over forehead, on repeat testing of her chin, stated both sides were equal CN VII: Facial strength normal with symmetric movement. CN VIII: Hearing is grossly intact. CN IX and X: Soft palate elevates symmetrically in the midline CN XI: Shoulder shrug and sternocleidomastoid strength (R/L) 5/5 CN XII: Tongue is midline with normal movement; no fasciculations. Motor: Normal bulk and tone. No pronator drift. SA EE EF WE WF DI HF KE KF DF PF Right 5 5 5 5 5 5 5 5 5 5 5 Left 5 5 5 5 5 5 5 5 5 5 5 Reflexes: Right Left Comments Biceps 2 2 Triceps 2 2 Brachioradialis 2 2 Patellar 2 2 Achilles 2 2 Hines Babinski Down Down Coordination: Ncjnaw-ib-krfg intact bilaterally. Ucxa-yz-xhpt intact bilaterally. Rapid alternating movements are normal. Cerebellar: HINTS assessment normal Sensation: Comments Light touch Intact throughout Pin prick Temperature Vibration Proprioception Gait: Normal casual gait with slightly narrow stride length. Reported she was not able to walk on heels or toes. Laboratory data: Lab Results Component Value Date WBC 8.57 03/06/2025 HGB 16.0 (H) 03/06/2025 HCT 45.7 (H) 03/06/2025 PLATELET 228 03/06/2025 MCV 92.1 03/06/2025 Lab Results Component Value Date SODIUM 136 03/06/2025 POTASSIUM 3.7 03/06/2025 CHLORIDE 104 03/06/2025 CO2 24 03/06/2025 BUN 11 03/06/2025 CREATSERUM 0.56 03/06/2025 Lab Results Component Value Date ALT 19 10/13/2024 AST 18 10/13/2024 ALKPHOS 168 (H) 10/13/2024 BILITOTAL 0.5 10/13/2024 BILIDIRECT LAB CANC-Specimen not received in laboratory. 05/14/2008 Lab Results Component Value Date B12 435 03/29/2012 FOLATE 11.54 03/29/2012 TSH 1.104 03/28/2012 T4FREE 1.26 03/28/2012 HIV1X2 NONREACTIVE Normal is nonreactive 01/24/1998 AMMONIA 12 03/29/2012 Lab Results Component Value Date LDLCALC 94 02/15/2012 HDL 40 (L) 02/15/2012 CHOLESTEROL 152 02/15/2012 TRIG 90 02/15/2012 Imaging/diagnostic procedures: CT HEAD WITHOUT CONTRAST Final Result IMPRESSION: No acute intracranial findings. I personally viewed and interpreted these images and I have reviewed and approved this report. ANGIO BRAIN/NECK Final Result IMPRESSION: No significant stenosis in the arteries of the neck and brain.. I personally viewed and interpreted these images and I have reviewed and approved this report. /HRT MACULA OU (Results Pending) OCT OPTIC NERVE OU (Results Pending) FUNDUS PHOTOGRAPHY-OU (Results Pending) MRI BRAIN WITH AND WITHOUT CONTRAST (Results Pending) MRI ORBITS WITH AND WITHOUT CONTRAST (Results Pending) Impression: Georgia Ochoa is a 69 y.o. right-handed female with history of Lyme Disease (with concern for multiple recurrent infections or Lyme flares), kidney stones, schizotypal personality disorder presenting with dizziness, blurred vision, slurred speech. Ms. Ochoa presents with longstanding history of constellation of symptoms, including loss of vision at times/seeing shapes/visual phenomenon, dizziness/dysequilibrium, and cognitive changes. This has been occurring for the past ~2 years but has worsened since July and again more so over the past few weeks. She attributes these symptoms to prior Lyme Disease flares, however, does state that the severity and type of symptoms are different. It is difficult to localize to a single neurologic structure. Have lower suspicion for entities such as optic neuritis given reassuring neurologic/ophthalmologic exam, temporal arteritis (given lack of temporal pain, jaw claudication, duration of symptoms), stroke, encephalitis (given lack of focal deficits, cognition and attention intact, stable vitals), low concern these are seizures. Agree with brain and orbit MRI to investigate enhancement/hyperintensities which could help phenotype her presentation. Her Lyme evaluation (IgG) more recently (12/2024) has been negative. There may be a component of functional neurologic symptoms overlying her presentation. Would benefit from more thorough battery of cognitive testing to help assist her with long-term cognitive function/ADLs. Recommendations: - Will follow-up on brain and orbits MRI with and without contrast - Recommend follow-up with ophthalmology outpatient and her Lyme specialist. Could consider discussion with ID for long-standing Lyme diagnosis - Recommend referral to cognitive neurology for difficulties with ADLs/cognition for formal testing/evaluation Thank you for the consultation. If you have any further questions, please contact the forward air controller/air officer neurology consultation resident. Case seen and staffed with Dr. Juárez . Signed, Zulma Narayanan DO PGY-4 Neurology Cosigned by Tatyana Juárez MD at 03/07/2025 3:20 PM EDT Associated attestation - Tatyana Juárez MD - 03/07/2025 3:20 PM EDT I have seen and examined the patient today on 03/07/25. I agree with the history, examination, and medical decision making as noted by the resident. I have personally reviewed all the data including history, medical records, lab/radiology images/medical testing for today's encounter. Consult for chronic blurry vision, dizziness, non-specific symptoms 69 yo woman, multiple prior reports of chronic Lyme Disease but serology here at [facility] has been negative. Had Lyme testing in [place] and IgG positive but IgM negative and western blot negative History changing between providers Months to years of intermittent blurry vision Chronic slurred speech, intermittent since 2022 Also endorses chronic cognitive issues Dilated exam shows PPA and crowded nerves OU, but no edema or pallor. Similar to 2012 exam She is occupied by lyme disease and worried it is the cause of her symptoms No headaches ESR 30 CRP 82 CTH with no acute findings Exam with no focal findings Pending MRI brain and orbits w/wo If negative, follow up with ophth clinic for blurry vision, and with neurology clinic for cognitive eval Reversible dementia labs Cristal Juárez MD documented [facility] encounter [facility] 03-07[facility]2025 History of Present illness Narrative Acute Occupational Therapy Evaluation Prior Gross Functional Mobility: independent Current AM-PAC score(s): CURRENT AM-PAC Activity Raw Score: 19 Based on the above AM-PAC score(s) and OT clinical judgment, discharge destination recommendation is: Home Barriers to discharge home: Patient needs assistance with ADLs, Patient needs assistance with IADLs (see note below) Mobility equipment available at home: none used ADL equipment available at home: shower chair, grab bars Equipment recommendations for discharge: none Equipment issued: none Current therapy frequency recommendation(s) in acute: 3 times a week Activity Recommendations for outside of rehab session: stand by assist Precautions and Weightbearing Status: OT Existing Precautions/Restrictions: fall Telemetry Patient Safety Communication Prior to Visit: Nursing Subjective: Pt reporting that she left her shoes on so she would be ready for therapy. Pain: General Pain Documentation (Adult, OB, Peds) Presence of Pain: reports pain/discomfort Pain Location: generalized Home Setting Residence: House Lives With: alone First floor setup: bedroom, walk-in shower Number of stairs to enter home: 0 Number of stairs in home: 0 Mobility Equipment Available: none used ADL Equipment Available: shower chair, grab bars Home Environment Details: some times stays with friend Previous Level of Function Gross Functional Mobility: independent Assistive Device: none used Prior level ADL Overview: Independent with all ADLs Bed Mobility: independent Transfers: independent Stairs: independent Ambulation: independent with all needs Prior Level of Function Details: no recent falls IADL History IADLs: independent Primary Language: [place] Citizen IADL Comments: friend assists with driving Objective/Observation: Vitals/Vitals Responses to Treatment: no adverse reaction towards session O2 Device: room air Vision Screen Currently wearing corrective lenses: No Subjective Patient Complaints: Blurry vision, Dizziness Speech Speech: no gross deficits noted Hearing Hearing: no gross deficits noted Cognition Overall Cognitive Status: Within Functional Limits Arousal/Alertness: Appropriate responses to stimuli Orientation Level: Oriented X4 Following Commands: Follows all commands and directions without difficulty Safety Judgment: Good awareness of safety precautions Awareness of Errors: Good awareness of errors made Deficits: Fully aware of deficits Attention Span: Appears intact Memory: Appears intact Problem Solving: Able to problem solve independently ADLs: ADL Assessment: Toileting Deficit, LE Dressing Deficit, Grooming Deficit ADL Anticipated Performance (ADLs not directly observed this session): Eating, Bathing, UE Dressing Eating Assistance: Independent Grooming Assistance: Stand by Grooming Location: standing at sink Grooming Deficit: Increased time to complete, Activity tolerance, Balance, Wash/dry hands Grooming Skilled Rationale (Verbal/Tactile/Visual/Demonstrat ion): Facilitate positioning, Facilitate postural control, Technique of activity, Cues for increased safety Bathing Assistance: Stand by UE Dressing Assistance: Supervision LE Dressing Assistance: Stand by LE Dressing Location: seated in chair LE Dressing Deficit: Increased time to complete, Activity tolerance, Balance, Thread RLE into underwear, Thread LLE into underwear, Pull up over hips LE Dressing Skilled Rationale (Verbal/Tactile/Visual/Demonstrat ion): Facilitate positioning, Facilitate postural control, Technique of activity, Cues for increased safety Toilet Assistance: Stand by Toileting Location: toilet Toileting Deficit: Increased time to complete, Activity tolerance, Balance, Clothing management up, Clothing management down, Perineal hygiene Toilet Skilled Rationale (Verbal/Tactile/Visual/Demonstrat ion): Facilitate positioning, Facilitate postural control, Cues for increased safety, Technique of activity Extremity Assessments: Hand Kosher Butcher Strength Hand Kosher Butcher Strength Interpretation: Left WNL, Right WNL RUE Assessment RUE Assessment: Within Functional Limits LUE Assessment LUE Assessment: Within Functional Limits Balance: Sitting Balance Static Sitting-Level of Assistance: Supervision Dynamic Sitting-Level of Assistance: Supervision Skilled Rationale: Positioning, Hand placement, Verbal cues, Technique of activity, Cues for increased safety, Facilitate anterior shift Standing Balance Static Standing-Level of Assistance: Stand-by assist Dynamic Standing-Level of Assistance: Contact guard Standing-Balance Support: No upper extremity support Skilled Rationale: Positioning, Hand placement, Verbal cues, Technique of activity, Cues for increased safety Neuro: Sensation Overall Sensation: Intact Sensation Comments: Pt reports no numbness/tingling Proprioception Proprioception: intact Gross Coordination Gross Coordination: bilat UE intact Fine Motor Coordination Additional Documentation: Yes Fine Motor Coordination Left Hand, Manipulation of Objects: normal performance Right Hand, Manipulation of Objects: normal performance Skin and Edema: Skin Integrity Skin Integrity Description: WFL (visible areas) Edema Edema: none noted Mobility Assessment: Supine to Sit Mobility [place] Level: Supine->Sit: stand-by assist Bed Features/Set-up: Supine->Sit: Head of bed elevated, Use of bed rail Skilled Rationale: Positioning, Hand placement, Verbal cues, Technique of activity, Cues for increased safety Sit to Supine Mobility [place] Level: Sit->Supine: stand-by assist Bed Features/Set-up: Sit->Supine: Head of bed elevated, Use of bed rail Skilled Rationale: Positioning, Hand placement, Verbal cues, Technique of activity, Cues for increased safety Transfer Assessment: Sit to Stand Transfer [place] Level: Sit->Stand: stand-by assist Skilled Rationale: Positioning, Hand placement, Verbal cues, Technique of activity, Cues for increased safety Skilled Intervention/Details: Sit->Stand: x1 from EOB Stand to Sit Transfer [place] Level: Stand->Sit: stand-by assist Skilled Rationale: Positioning, Hand placement, Verbal cues, Technique of activity, Cues for increased safety Toilet Transfer [place] Level: Toilet: stand-by assist Assistive Device: Toilet: grab bars Skilled Rationale: Positioning, Hand placement, Verbal cues, Technique of activity, Cues for increased safety Functional Mobility: Functional Mobility [place] Level: Functional Mobility/Gait: contact guard assist Functional Mobility Distance: Distance needed for common household mobility Functional Mobility Deficits: Activity tolerance, Balance, Generalized weakness, Slowed gait speed Functional Mobility Skilled Rationale: Breathing strategies, Facilitate positioning, Facilitate postural control Outcome Score(s): CURRENT [facility] Daily Activity Inpatient Short Form Putting on/Taking Off Lower Body Clothin - A Little Assistance Bathin - A Little Assistance Toiletin - A Little Assistance Putting on/Taking Off Upper Body Clothin - A Little Assistance Groomin - A Little Assistance Eatin - No Assistance CURRENT [facility] Activity Raw Score: 19 CURRENT [facility] Activity Functional Limitation/Modifier: 42.80% Currently Impaired in Daily Activity - CK Interventions: Assessment & Plan: Patient was admitted for blurred vision and dizziness for approximately 3 weeks and seen for therapy evaluation related to concerns for balance, strength, activity tolerance, and vision inhibiting ability to complete ADL's. Exam findings include impairments in: transfers, endurance, balance, vision. These impairments contribute to occupational performance limitations including bathing, dressing, grooming, toileting, functional mobility, ADL transfers. The following factors impact the plan of care: Past Medical History: Diagnosis Date Hx of Lyme disease reports episodes 1990,1995, 2007, 2008,2011, 2023 Kidney stone Past Surgical History: Procedure Laterality Date KIDNEY STONE SURGERY 1971 Patient will benefit from skilled occupational therapy to address these impairments, occupational performance limitations, and participation restrictions. Patient's rehab potential is: good. Planned Therapy Interventions (OT Eval): ADL retraining, balance training, bed mobility training Patient Instruction/Education this session: Learners: Patient Education provided: Safety, Role of this discipline, Positioning, Plan of care Teaching method: Verbal Education/Instruction Learner response: Applies knowledge Learning preferences: Auditory Learning considerations: No barriers/ready to learn Plan for next session: low vision techniques Acute OT Goals Plan of Care by Jamilah Go OT at 03/07/2025 7:39 AM Version 1 of 1 Problem: OT - ADLs Goal: Lower Body Dressing - Patient will complete lower body dressing tasks with independence using adaptive equipment/compensatory strategies as needed for improved ability to complete self-care activities. Outcome: Ongoing Goal: Toileting - Patient will complete toileting task with independence and adaptive equipment as needed for improved ability to safely complete self-care activities. Outcome: Ongoing Problem: OT - Vision Goal: Low Vision - Patient will demonstrate safe navigation of environment as evidenced by navigating novel environment with min cues, implementing low vision strategies. Outcome: Ongoing OT treatment consisted of the following to work and progress towards the above goal(s): OT Evaluation and Treatment Time OT Evaluation (Moderate) Time Entry: 17 Evaluating Therapist: Jamilah Go OT Additional Details: OT Co-Eval/Treatment Information Co-evaluation/co-treatment performed?: Yes, simultaneous billable skilled care was necessary due to medical complexity and functional deficits Other discipline: PT Rationale for need to co-eval/treat: (medical status) OT Evaluation Complexity Occupational Profile and Client History: Moderate - expanded history Assessment of Occupational Performance: Moderate (3-5 performance deficits) Clinical Decision/Performance Deficits: Moderate (detailed assessments w/several treatment options) Time In: 738 Time Out: 0756 Total Visit Time: 17 minutes Total Treatment Time (skilled, billable minutes): 17 minutes Assisted by during session: PT PPE used during patient interaction: gloves Patient location at end of session: bed with head of bed elevated Alarms on at end of session: none Needs in reach. Upon discontinuation of Acute Care Occupational Therapy Services or patient discharge from the hospital this note represents the current Occupational Therapy Discharge Summary. Acute Physical Therapy Evaluation Prior Gross Functional Mobility: independent Current AM-PAC score(s): CURRENT AM-PAC Mobility Raw Score: 20 Based on the above AM-PAC score(s) and PT clinical judgment, patient is a good candidate for discharge to Home Barriers to discharge home: None Mobility equipment available at home: none used ADL equipment available at home: shower chair, grab bars Equipment needed for discharge: none Current therapy frequency recommendation in acute: PT Therapy Frequency: 3 times a week Precautions and Weightbearing Status: Existing Precautions/Restrictions: fall Patient Safety Communication Prior to Visit: Nursing Subjective: Pt agreeable for therapy. Pt reports being out of bed this date. Pt supine upon entry. Pain: General Pain Documentation (Adult, OB, Peds) Presence of Pain: reports pain/discomfort Pain Location: generalized Home Setting Residence: House Lives With: alone First floor setup: bedroom, walk-in shower Number of stairs to enter home: 0 Number of stairs in home: 0 Mobility Equipment Available: none used ADL Equipment Available: shower chair, grab bars Home Environment Details: some times stays with friend Previous Level of Function Gross Functional Mobility: independent Assistive Device: none used Prior level ADL Overview: Independent with all ADLs Bed Mobility: independent Transfers: independent Stairs: independent Ambulation: independent with all needs Prior Level of Function Details: no recent falls Objective/Observation: Vitals/Vitals Responses to Treatment: vss. Pt reports fatigue and weakness limiting activity. O2 Device: room air Cognition Overall Cognitive Status: Within Functional Limits Arousal/Alertness: Appropriate responses to stimuli Orientation Level: Oriented X4 Extremity Assessments: RLE Assessment Right LE Assessment Details: grossly +3/5 LLE Assessment Left LE Assessment Details: grossly +3/5 Sensation Sensation Comments: intact BLE Mobility Assessment: Supine to Sit Mobility [place] Level: Supine->Sit: contact guard assist Bed Features/Set-up: Supine->Sit: Flat, Use of bed rail Skilled Rationale: Verbal cues, Technique of activity, Cues for increased safety Skilled Intervention/Details: Supine->Sit: to/from supine Balance: Sitting Balance Static Sitting-Level of Assistance: Contact guard Dynamic Sitting-Level of Assistance: Contact guard Skilled Rationale: Verbal cues, Sequencing, Hand placement, Positioning, Technique of activity, Cues for increased safety Sitting Balance Skilled Intervention/Details: simulated functional sitting tasks with varied UE support Standing Balance Static Standing-Level of Assistance: Contact guard Dynamic Standing-Level of Assistance: Contact guard Skilled Rationale: Technique of activity, Energy conservation, Verbal cues Standing Balance Skilled Intervention/Details: performed simulated functional tasks Transfer Assessment: Sit to Stand Transfer [place] Level: Sit->Stand: contact guard assist Skilled Rationale: Positioning, Sequencing, Hand placement, Verbal cues, Technique of activity, Cues for increased safety, Energy conservation, Full extension to upright positioning/posture Skilled Intervention/Details: Sit->Stand: to/from bed x1 trial Gait/Functional Mobility: Gait Assessment [place] Level: Gait: contact guard assist Ambulation Distance (Feet): 150 Gait Deviations Identified: decreased dwain, decreased gait speed, shuffling Gait Skilled Rationale: verbal, safety to avoid obstacles Skilled Intervention/Details - Gait: facilitated gait training to complete gait safely, no dizziness reports during activity Stairs: Outcome Score(s): CURRENT [facility] Basic Mobility Inpatient Short Form Turning over in bed: 4 - No Assistance Moving from lying on back to sittin - No Assistance Moving to and from bed to chair: 3 - A Little Assistance Sitting/standing from chair: 3 - A Little Assistance Walk in hospital room: 3 - A Little Assistance Climbing 3-5 steps with a railin - A Little Assistance CURRENT [facility] Mobility Raw Score: 20 CURRENT [facility] Mobility Functional Limitation: 35.83% Impaired in Basic Mobility Interventions: Assessment & Plan: Per chart: Pt is Georgia Conrad Eatonjose luis angel 69 y.o. female presenting 03/06/2025 Patient Active Problem List Diagnosis Dysphagia Loss of weight Reflex, abnormal Optic atrophy of both eyes Lyme disease Hx of Lyme disease ICD-10-CM 1. Blurry vision H53.8 Past Medical History: Diagnosis Date Hx of Lyme disease reports episodes 1990,1995, 2007, 2008,2011, 2023 Kidney stone Past Surgical History: Procedure Laterality Date KIDNEY STONE SURGERY 1971 Pt is appearing to be most limited with: functional ambulation and functional transfers Pt was seen for therapy evaluation related to discharge recommendations. Exam findings include impairments in: Strength, Balance, Transfers, Gait/Locomotion, Aerobic capacity/endurance. These impairments contribute to functional limitations including: Increased fall risk, Decreased functional mobility. Current clinical presentation is Evolving Stable - unchanging or predictable (Low). Patient history factors impacting Plan Of Care include: pmhx. Patient will benefit from skilled physical therapy to address these impairments, functional limitations, and participation restrictions and has good rehab potential to achieve therapy goals. Planned Therapy Interventions: balance training, bed mobility training, endurance, functional activity tolerance, gait training, strengthening, transfer training Learners: Patient Education provided: Activity outside of therapy, Compensatory strategies, Role of this discipline Teaching method: Verbal Education/Instruction Learner response: Needs review Learning preferences: Auditory Learning considerations: No barriers/ready to learn Stroke education: Role of rehabilitation discipline Plan for next session: progress activity tolerance and progress functional gait/balance Acute PT Goals Plan of Care by Ingris Vazquez PT at 03/07/2025 7:38 AM Version 1 of 1 Problem: PT - General Goals Goal: Pt will perform bed mobility within precautions at independence in order to improve functional mobility and safety. Outcome: Ongoing Goal: Pt will perform transfers within precautions with independence with without an assistive device in order to improve functional mobility and safety. Outcome: Ongoing Goal: Pt will ambulate 100 feet within precautions with without an assistive device at independence to improve ability to navigate home environment. Outcome: Ongoing PT treatment consisted of the following to progress towards the above goal(s): PT Evaluation and Treatment Time PT Evaluation (Low) Time Entry: 16 Evaluating Therapist: Ingris Vazquez PT Additional Details: PT Co-Eval/Treatment Information Co-evaluation/co-treatment performed?: Yes, simultaneous billable skilled care was necessary due to medical complexity and functional deficits Other discipline: OT Rationale for need to co-eval/treat: postural control Co-treatment goal focus: mobility Evaluation Complexity Components History: Low (No personal factors and/or comorbidities) Body Systems Review: Low (Addressing 1-2 elements) Clinical Presentation: Stable - unchanging or predictable (Low) Clinical Decision Making Complexity: Low Time In: 0738 Time Out: 0754 Total Visit Time: 16 minutes Total Treatment Time (skilled, billable minutes): 16 minutes PPE used during patient interaction: gloves Patient location at end of session: bed with head of bed elevated Alarms on at end of session: RN aware Needs in reach. Upon discontinuation of Acute Care Physical Therapy Services or patient discharge from the hospital this note represents the current Physical Therapy Discharge Summary. documented in this encounter [facility] 03-07-2025 Plan of care note Problem: OT - ADLs Goal: Lower Body Dressing - Patient will complete lower body dressing tasks with independence using adaptive equipment/compensatory strategies as needed for improved ability to complete self-care activities. Outcome: Ongoing Goal: Toileting - Patient will complete toileting task with independence and adaptive equipment as needed for improved ability to safely complete self-care activities. Outcome: Ongoing Problem: OT - Vision Goal: Low Vision - Patient will demonstrate safe navigation of environment as evidenced by navigating novel environment with min cues, implementing low vision strategies. Outcome: Ongoing [facility] 03-07-2025 Plan of care note Problem: PT - General Goals Goal: Pt will perform bed mobility within precautions at independence in order to improve functional mobility and safety. Outcome: Ongoing Goal: Pt will perform transfers within precautions with independence with without an assistive device in order to improve functional mobility and safety. Outcome: Ongoing Goal: Pt will ambulate 100 feet within precautions with without an assistive device at independence to improve ability to navigate home environment. Outcome: Ongoing [facility] 03-07-2025 Progress note Formatting of t his note is different from the original. DEPARTMENT OF EMERGENCY MEDICINE CHIEF COMPLAINT Chief Complaint Patient presents with Dizziness Blurred Vision HISTORY OF PRESENT ILLNESS Georgia Ochoa is a 69 y.o. female was appropriately risk stratified for observation level of care and was placed on the [facility] Vertigo protocol. Symptoms started with PMH lyme disease, kidney stones p/w dizziness, blurred vision, slurred speech, ongoing symptoms for the past three weeks. Referred to the ED for further evaluation. Ophthalmology consulted, gave recommendations. CTH negative, CTA Brain/Neck negative. Lives alone in a house, no assistive devices, no falls or safety concerns, no home or outpatient services per patient. Currently on Malarone for lyme disease per patient. Plan for observation for symptom management, MRI Brain and Orbits with and without contrast, fall precautions, PT/OT consultation, reassessment. Personal, surgical, family, and social history reviewed with patient. REVIEW OF SYSTEMS Review of Systems Constitutional: Negative. Negative for chills and fever. HENT: Negative. Eyes: Positive for blurred vision. Respiratory: Negative. Negative for cough, hemoptysis, sputum production, shortness of breath and wheezing. Cardiovascular: Negative. Gastrointestinal: Negative. Negative for abdominal pain, blood in stool, constipation, diarrhea, heartburn, melena, nausea and vomiting. Genitourinary: Negative. Negative for dysuria, flank pain, frequency, hematuria and urgency. Musculoskeletal: Negative. Skin: Negative. Neurological: Positive for dizziness, speech change (Slurred speech, intermittent) and headaches. Negative for tingling, tremors, sensory change, focal weakness, seizures, loss of consciousness and weakness. Endo/Heme/Allergies: Negative. Psychiatric/Behavioral: Negative. All Other Systems Were Reviewed And Negative Unless Otherwise Noted PAST MEDICAL HISTORY Past Medical History Reviewed, Contributory Findings Include: See below and above in HPI, no other endorsed PMH per patient. Past Medical History: Diagnosis Date Hx of Lyme disease reports episodes 1990,1995, 2007, 2008,2011, 2023 Kidney stone SURGICAL HISTORY Past Surgical History Reviewed, Contributory Findings Include: No other endorsed surgical history per patient. Past Surgical History: Procedure Laterality Date KIDNEY STONE SURGERY 1971 MEDICATIONS GIVEN IN THE ED Medications iohexol (OMNIPAQUE) 350 MG/ML injection 1-171 mL (100 mL Intravenous Given - Radiology 03/06/252029) Sodium chloride (PF) 0.9 % injection 1-100 mL (20 mL Intravenous Given 03/06/252029) ALLERGIES Allergies Allergen Reactions Ciprofloxacin Dyspnea and Hives dizziness Bactrim No known or endorsed food or drug allergies per patient. FAMILY HISTORY Family History Reviewed, Contributory Findings Include: No other endorsed family history per patient. Family History Problem Relation Age of Onset Cataract Mother Hypertension Mother Heart Disease - Other Father Heart Disease - Other Other Hypertension Other Breast Cancer Neg Hx Ovarian Cancer Neg Hx Uterine Cancer Neg Hx Prostate Cancer Neg Hx Colon Cancer Neg Hx SOCIAL HISTORY Social History Reviewed, Contributory Findings Include: No other endorsed social history per patient. Social History Socioeconomic History Marital status: Single Spouse name: Not on file Number of children: Not on file Years of education: Not on file Highest education level: Not on file Occupational History Not on file Tobacco Use Smoking status: Never Smokeless tobacco: Never Vaping Use Vaping status: Never Used Substance and Sexual Activity Alcohol use: No Drug use: No Sexual activity: Not Currently Other Topics Concern Not on file Social History Narrative Not on file Social Drivers of Health Financial Resource Strain: Low Risk (11/09/2023) Received from [facility] Overall Financial Resource Strain (CARDIA) Difficulty of Paying Living Expenses: Not very hard Food Insecurity: No Food Insecurity (11/03/2023) Received from [facility] Hunger Vital Sign Worried About Running Out of Food in the Last Year: Never true Ran Out of Food in the Last Year: Never true Transportation Needs: No Transportation Needs (05/08/2024) Received from [facility] OASIS A1250: Transportation Lack of Transportation (Medical): No Lack of Transportation (Non-Medical): No Patient Unable or Declines to Respond: No Physical Activity: Not on file Stress: Not on file Social Connections: Not on file Personal Safety: Not At Risk (11/03/2023) Received from [facility] Humiliation, Afraid, Rape, and Kick questionnaire Fear of Current or Ex-Partner: No Emotionally Abused: No Physically Abused: No Sexually Abused: No Housing Stability: Low Risk (11/03/2023) Received from [facility] Housing Stability Vital Sign Unable to Pay for Housing in the Last Year: No Number of Places Lived in the Last Year: 2 Unstable Housing in the Last Year: No PHYSICAL EXAM BP 153/90 (BP Location: Left arm, BP Position: Sitting) Pulse 113 Temp 97.8 F (36.6 C) (Oral) Resp 10 Ht 1.676 m (5' 6) SpO2 92% BMI 30.67 kg/m Smoking Status Never Physical Exam Vitals and nursing note reviewed. Constitutional: General: She is not in acute distress. Appearance: She is well-developed. She is not diaphoretic. HENT: Head: Normocephalic and atraumatic. Eyes: General: No visual field deficit or scleral icterus. Conjunctiva/sclera: Conjunctivae normal. Pupils: Pupils are equal, round, and reactive to light. Neck: Vascular: No JVD. Cardiovascular: Rate and Rhythm: Normal rate and regular rhythm. Heart sounds: No murmur heard. No friction rub. No gallop. Pulmonary: Effort: Pulmonary effort is normal. No respiratory distress. Breath sounds: Normal breath sounds. No wheezing or rales. Chest: Chest wall: No tenderness. Abdominal: General: There is no distension. Palpations: Abdomen is soft. There is no mass. Tenderness: There is no abdominal tenderness. There is no guarding or rebound. Musculoskeletal: General: Normal range of motion. Cervical back: Normal range of motion and neck supple. Skin: General: Skin is warm and dry. Neurological: Mental Status: She is alert and oriented to person, place, and time. GCS: GCS eye subscore is 4. GCS verbal subscore is 5. GCS motor subscore is 6. Cranial Nerves: Cranial nerve deficit (Numbness on L side of face when compared to R, V1-V3 dermatomes) present. No dysarthria or facial asymmetry. Sensory: Sensation is intact. No sensory deficit. Motor: Motor function is intact. Psychiatric: Behavior: Behavior normal. Thought Content: Thought content normal. Judgment: Judgment normal. EDOU COURSE & MEDICAL DECISION MAKING Risk stratification appropriate for observation level of care. Patient was placed in EDOU on the Vertigo protocol. Patient age greater than 64y/o? YES Geriatrics Screening: Delirium Triage Screen: Exclusion Criteria: Non-zero scores are abnormal. The above score does not represent acute delirium based on my assessment. Stage Balance Assessment Score: Exclusion Criteria: Non-zero scores are abnormal. The patient does need urgent physical and occupational therapy consultation or referral for fall risk assessment based on the above score and my assessment. ISAR Score: Exclusion Criteria: Scores of 2 or higher should prompt consideration of case management consultation. The patient does need case management based on my assessment. The patient does need (may benefit from) Geriatrics consultation or outpatient referral based on the above screening and my assessment. Differential diagnosis includes but is not limited to the following, at least one of which represents a life or limb threatening condition: BPPV, TIA, CVA, CRAO, CRVO, mass effect, optic neuritis, cranial neuropathy I reviewed the patients' medical records and nursing notes and noted their allergies, past medical history, and previous visits. The reviewed showed Results for orders placed or performed during the hospital encounter of 03/06/25 CHEM 7 (LYTES,BUN,CREA,GLUC) Result Value Ref Range Sodium 136 135 - 145 mmol/L Potassium 3.7 3.5 - 5.0 mmol/L Chloride 104 98 - 108 mmol/L CO2 24 21 - 31 mmol/L Glucose 114 Nonfastin-179 mg/dL; Fastin-99 mg/dL BUN 11 7 - 25 mg/dL Creatinine 0.56 0.50 - 1.20 mg/dL Bun/Crea Ratio 20 Osmolality (Calculated) 285 278 - 305 mOsm/kg Anion Gap 12 7 - 17 mmol/L eGFR, CKD-EPI, Female >90 >=60 mL/min/1.73m2 PHOSPHATE, INORGANIC Result Value Ref Range Phosphorous 3.0 2.2 - 4.6 mg/dL MAGNESIUM Result Value Ref Range Magnesium 1.8 1.6 - 2.6 mg/dL CALCIUM Result Value Ref Range Calcium 9.5 8.6 - 10.5 mg/dL HIGH SENSITIVITY TROPONIN I - SINGLE ORDER Result Value Ref Range hs-Troponin I <3 <34 ng/L PT,INR,PTT Result Value Ref Range PT 14.8 (H) 11.9 - 14.2 sec INR 1.2 (H) 0.9 - 1.1 PTT 31.5 24.0 - 34.3 sec NT-PRO B-TYPE NATRIURETIC PEPTIDE Result Value Ref Range NT-Pro B-Type Natriuretic Peptide 104 <=540 pg/mL CBC AND ELECTRONIC DIFF Result Value Ref Range WBC Count 8.57 3.99 - 11.19 K/uL RBC Count 4.96 3.91 - 5.04 M/uL Hemoglobin 16.0 (H) 11.4 - 15.2 g/dL Hematocrit 45.7 (H) 34.9 - 44.3 % Mean Cell Volume 92.1 79.6 - 97.7 fL Mean Cell Hgb 32.3 25.9 - 33.9 pg Mean Cell Hgb Conc 35.0 31.4 - 35.9 g/dL RBC Distribution 13.2 10.8 - 14.9 % Platelet Count 228 150 - 393 K/uL Mean Platelet Volume 9.5 8.5 - 12.2 fL DIFF STATUS Electronic Differential Segs + Bands Auto 64.7 % Immature Grans % 1.1 % Lymphocyte % Auto 17.7 % Monocyte % Auto 15.4 % Eosinophil % Auto 0.5 % Basophil % Auto 0.6 % Nucleated RBC 0.0 <=0.2 /100 WBC Segs + Bands,Absolute Auto 5.55 1.64 - 7.28 K/uL Immature Grans Absolute 0.09 (H) <=0.08 K/uL Abs Lymph Auto 1.52 1.16 - 3.51 K/uL Abs Carlton Auto 1.32 (H) 0.22 - 0.87 K/uL Abs Eos Auto 0.04 0.00 - 0.42 K/uL Abs Baso Auto 0.05 0.00 - 0.15 K/uL SEDIMENTATION RATE, AUTOMATED Result Value Ref Range ESR Westergren 30 (H) <30 mm/hr C REACTIVE PROTEIN Result Value Ref Range C Reactive Protein 82.05 (H) <10.00 mg/L CT HEAD WITHOUT CONTRAST Final Result IMPRESSION: No acute intracranial findings. I personally viewed and interpreted these images and I have reviewed and approved this report. ANGIO BRAIN/NECK Final Result IMPRESSION: No significant stenosis in the arteries of the neck and brain.. I personally viewed and interpreted these images and I have reviewed and approved this report. /HRT MACULA OU (Results Pending) OCT OPTIC NERVE OU (Results Pending) FUNDUS PHOTOGRAPHY-OU (Results Pending) MRI BRAIN WITH AND WITHOUT CONTRAST (Results Pending) MRI ORBITS WITH AND WITHOUT CONTRAST (Results Pending) The patient received the following interventions in the ED to date: Labs, PO and IV analgesics and antiemetics PRN, home medications, ophthalmology consultation, CTH, CTA/Brain neck, pending continued symptom control overnight, MRI Brain with and without contrast, MRI orbits with and without contrast, fall precautions, PT/OT consultation, reassessment by morning observation team. If improved, likely home with close PCP follow-up. On reassessment the patient's response to the interventions was unchanged, vitals stable, afebrile, resting in bed. While in the EDOU we will continue to check, monitor and reassess patient and alter our plan as clinically appropriate. This is a non-shared visit on 03/07/2025. Medical Decision Making Amount and/or Complexity of Data Reviewed External Data Reviewed: labs, radiology, ECG and notes. Labs: ordered. Decision-making details documented in ED Course. Radiology: ordered. Decision-making details documented in ED Course. ECG/medicine tests: ordered. Decision-making details documented in ED Course. Risk OTC drugs. Prescription drug management. Parenteral controlled substances. Decision regarding hospitalization. Electronically signed by: Mariah Garcia PA-C, 03/07/2025 12:29 AM [facility] Work Phone: 03-06-2025 Physician Emergency department Note ED ATTENDING NOTE CHIEF COMPLAINT Chief Complaint Patient presents with Dizziness Blurred Vision HPI Georgia Ochoa is a 69 y.o. female with a has a past medical history of Lyme disease and Kidney stone. She has no past medical history of Anemia, Asthma, Glaucoma, Hyperlipidemia, Occlusion of cerebral arteries, or TIA (transient ischemic attack). who presents for History of Present Illness This is a 69-year-old female with a history of Lyme disease and vertigo presenting with dizziness and blurred vision. The exact timeframe for these symptoms is unclear. History provided by the patient. The patient reports experiencing dizziness and blurred vision for an unspecified duration. She also mentions memory issues, left lower extremity weakness, and slurred speech. She sought medical attention at the [facility] today due to an inability to see objects on her fork, a problem she has been experiencing in the mornings and during low light conditions. However, her response was inconsistent when asked if she is currently experiencing this issue. She reports no eye pain or discomfort during extraocular eye movements. She also reports no changes in hearing, difficulty swallowing, chest pain, shortness of breath, nausea, vomiting, gastrointestinal or genitourinary symptoms, or fevers. The patient describes her dizziness as a spinning sensation, but not as severe as vertigo, and does not feel lightheaded. She reports no facial or extremity paresthesias or upper extremity weakness but does report left lower extremity weakness. ROS see above A review of systems was obtained and is negative other than those discussed in the above HPI and accompanying resident documentation. Systems reviewed include Constitutional, eyes, ENT, Cardiovascular, Pulmonary, Gastrointestinal, neurological, genitourinary, musculoskeletal, skin PAST MEDICAL HISTORY Past Medical History: Diagnosis Date Hx of Lyme disease reports episodes 1990,1995, 2007, 2008,2011, 2023 Kidney stone SURGICAL HISTORY Past Surgical History: Procedure Laterality Date KIDNEY STONE SURGERY 1971 CURRENT MEDICATIONS No current facility-administered medications for this encounter. Current Outpatient Medications Medication Sig Dispense Refill atovaquone 750 MG/5ML Suspension oral suspension Take 5 mL by mouth 2 times daily. cefUROXime 500 MG tablet Take 1 tablet by mouth 2 times daily. Cholestyramine 4 GM/DOSE Powder MIX 4 GRAMS IN BEVERAGE AND DRINK FOUR TIMES DAILY Itraconazole 100 MG capsule Take 1 capsule by mouth daily. Tinidazole 500 MG tablet Take 1 tablet by mouth 2 times daily. ALLERGIES Allergies Allergen Reactions Ciprofloxacin Dyspnea and Hives dizziness Bactrim FAMILY HISTORY Family History Problem Relation Age of Onset Cataract Mother Hypertension Mother Heart Disease - Other Father Heart Disease - Other Other Hypertension Other Breast Cancer Neg Hx Ovarian Cancer Neg Hx Uterine Cancer Neg Hx Prostate Cancer Neg Hx Colon Cancer Neg Hx SOCIAL HISTORY Social History Socioeconomic History Marital status: Single Spouse name: Not on file Number of children: Not on file Years of education: Not on file Highest education level: Not on file Occupational History Not on file Tobacco Use Smoking status: Never Smokeless tobacco: Never Vaping Use Vaping status: Never Used Substance and Sexual Activity Alcohol use: No Drug use: No Sexual activity: Not Currently Other Topics Concern Not on file Social History Narrative Not on file Social Drivers of Health Financial Resource Strain: Low Risk (11/09/2023) Received from [facility] Overall Financial Resource Strain (CARDIA) Difficulty of Paying Living Expenses: Not very hard Food Insecurity: No Food Insecurity (11/03/2023) Received from [facility] Hunger Vital Sign Worried About Running Out of Food in the Last Year: Never true Ran Out of Food in the Last Year: Never true Transportation Needs: No Transportation Needs (05/08/2024) Received from [facility] OASIS A1250: Transportation Lack of Transportation (Medical): No Lack of Transportation (Non-Medical): No Patient Unable or Declines to Respond: No Physical Activity: Not on file Stress: Not on file Social Connections: Not on file Personal Safety: Not At Risk (11/03/2023) Received from [facility] Humiliation, Afraid, Rape, and Kick questionnaire Fear of Current or Ex-Partner: No Emotionally Abused: No Physically Abused: No Sexually Abused: No Housing Stability: Low Risk (11/03/2023) Received from [facility] Housing Stability Vital Sign Unable to Pay for Housing in the Last Year: No Number of Places Lived in the Last Year: 2 Unstable Housing in the Last Year: No PHYSICAL EXAM Vital Signs:BP 139/80 (BP Location: Left arm, BP Position: Lying) Pulse 98 Temp 98.4 F (36.9 C) (Oral) Resp 16 Ht 1.676 m (5' 6) SpO2 97% BMI 30.67 kg/m Smoking Status Never General: NAD, resting comfortably in bed Ent: MMM, trachea midline Lung:normal respiratory effort Heart: , regular rhythm, normal rate, Abd: Soft, NT/ND, Extremities: No edema Skin: No jaundice, lesions, rash or breakdown Neuro: A+Ox3, moving limbs spontaenously Psych: Appropriate affect and mood Physical Exam Eyes: Vision is 20/25 bilaterally. Visual zhao are normal. Neurological: Neurologic exam is normal. EKG Interpretation Interpreted by me Rhythm: sinus Rate: 100 [place]: normal Ectopy: none Conduction: normal ST Segments: no acute change T Waves: no acute change Q Waves: none Clinical Impression: no STEMI Results ED COURSE & MEDICAL DECISION MAKING Pertinent Labs & Imaging studies if performed reviewed. (See chart for details) Medication list reviewed. EM Medical Decision Making Complexity of Problem Differential Includes: On 03/06/2025 I saw and examined the patient. 69 y.o. female Assessment & Plan Initial Assessment: 69-year-old female with a history of Lyme disease and vertigo presenting with dizziness, blurred vision, memory issues, left lower extremity weakness, and slurred speech. Symptoms have been ongoing for an unclear duration, not acute within the past 24 hours. Differential Diagnosis: - Presyncope: Considered due to dizziness. Imaging to rule out posterior circulation stroke. - Transient Ischemic Attack (TIA): Considered due to dizziness, blurred vision, left lower extremity weakness, and slurred speech. Imaging to rule out posterior circulation stroke. Neurovascular evaluation if imaging negative. - Optic Neuritis: Considered due to blurred vision. Ophthalmology consulted. Imaging to rule out posterior circulation stroke. - Macular Degeneration: Considered due to blurred vision. Ophthalmology consulted. ED Course: - Neuro exam normal, visual zhao normal, 20/25 bilaterally. - Ophthalmology consulted. - Imaging ordered to rule out posterior circulation stroke. Final Assessment: 69-year-old female with dizziness, blurred vision, left lower extremity weakness, and slurred speech. Neuro exam normal. Ophthalmology consulted. Imaging ordered to rule out posterior circulation stroke. Clinical Impression: - Presyncope - Transient Ischemic Attack (TIA) - Optic Neuritis - Macular Degeneration Disposition: - Admission: Hospital for TIA workup due to symptom description. Follow-Up: Neurovascular evaluation. This patient has: >2 problem(s) addressed during this visit One of which includes: Acute or chronic illness/injury that poses a threat to life or bodily function Complexity of Workup I have reviewed the results of each ordered lab result. Remarkable studies include: erythrocytosis, monocytosis, elevated ESR andcRP I have reviewed prior documentation from an outside department, which includes: reviewed I have not obtained a history from an independent historian. I have independently viewed and interpreted the patient's radiologic imaging. I have not discussed the management with an external physician or QUINN as a citrix consultant. Morbidity/ Mortality Of Patient Management During this visit, the patient has received: Diagnosis or treatment significantly limited by social determinants of health There was a decision made regarding hospitalization or escalation of care On 03/06/2025, I saw and examined the patient. I discussed the history and physical examination with the resident and agree with the emergency department plan of care and patient disposition. MD Chikis Guido MD 03/06/251957 [facility] Work Phone: 03-06-2025 Physician Emergency department Note DEPARTMENT OF EMERGENT MEDICINE CHIEF COMPLAINT Chief Complaint Patient presents with Dizziness Blurred Vision HPI Georgia Ochoa is a 69 y.o. female with a past medical history of lyme disease and vertigo who presents with dizziness and blurred vision. She states that she has had dizziness, progressively blurry vision, memory loss, slurred speech. The exact timeframe is unclear. She had provide multiple time frames. The shortness timeframe is development of symptoms in the past 2-3 weeks. She has had no new progressive symptoms in the past 24 hours. She presented to an AC due to worsening of her vision. They expressed concern for optic neuritis and recommended evaluation in the emergency department. She reports that her vision appears psych blackening of her bilateral peripheral vision. Her right vision is worse than her left. No eye pain, pain with extraocular eye movements, eye drainage, facial paresthesias, extremity paresthesias, upper extremity weakness, changes in hearing, chest pain, shortness of breath, nausea/vomiting, abdominal pain, dysuria, hematuria, diarrhea, melena, hematochezia. REVIEW OF SYSTEMS ROS is as described in the HPI PAST MEDICAL HISTORY Past Medical History: Diagnosis Date Hx of Lyme disease reports episodes 1990,1995, 2007, 2008,2011, 2023 Kidney stone SURGICAL HISTORY Past Surgical History: Procedure Laterality Date KIDNEY STONE SURGERY 1972 CURRENT MEDICATIONS Current Outpatient Medications Medication Sig atovaquone 750 MG/5ML Suspension oral suspension Take 5 mL by mouth 2 times daily. cefUROXime 500 MG tablet Take 1 tablet by mouth 2 times daily. Cholestyramine 4 GM/DOSE Powder MIX 4 GRAMS IN BEVERAGE AND DRINK FOUR TIMES DAILY Itraconazole 100 MG capsule Take 1 capsule by mouth daily. Tinidazole 500 MG tablet Take 1 tablet by mouth 2 times daily. ALLERGIES Allergies Allergen Reactions Ciprofloxacin Dyspnea and Hives dizziness Bactrim FAMILY HISTORY Family History Problem Relation Age of Onset Cataract Mother Hypertension Mother Heart Disease - Other Father Heart Disease - Other Other Hypertension Other Breast Cancer Neg Hx Ovarian Cancer Neg Hx Uterine Cancer Neg Hx Prostate Cancer Neg Hx Colon Cancer Neg Hx SOCIAL HISTORY Social History Socioeconomic History Marital status: Single Tobacco Use Smoking status: Never Smokeless tobacco: Never Vaping Use Vaping status: Never Used Substance and Sexual Activity Alcohol use: No Drug use: No Sexual activity: Not Currently Social Drivers of Health Financial Resource Strain: Low Risk (11/09/2023) Received from [facility] Overall Financial Resource Strain (CARDIA) Difficulty of Paying Living Expenses: Not very hard Food Insecurity: No Food Insecurity (11/03/2023) Received from [facility] Hunger Vital Sign Worried About Running Out of Food in the Last Year: Never true Ran Out of Food in the Last Year: Never true Transportation Needs: No Transportation Needs (05/08/2024) Received from [facility] OASIS A1250: Transportation Lack of Transportation (Medical): No Lack of Transportation (Non-Medical): No Patient Unable or Declines to Respond: No Personal Safety: Not At Risk (11/03/2023) Received from [facility] Humiliation, Afraid, Rape, and Kick questionnaire Fear of Current or Ex-Partner: No Emotionally Abused: No Physically Abused: No Sexually Abused: No Housing Stability: Low Risk (11/03/2023) Received from [facility] Housing Stability Vital Sign Unable to Pay for Housing in the Last Year: No Number of Places Lived in the Last Year: 2 Unstable Housing in the Last Year: No PHYSICAL EXAM BP 122/82 (BP Location: Left arm, BP Position: Sitting) Pulse 104 Temp 97.6 F (36.4 C) (Oral) Resp 14 Ht 1.676 m (5' 6) SpO2 94% BMI 30.67 kg/m Smoking Status Never Physical Exam Vitals and nursing note reviewed. HENT: Nose: Nose normal. Mouth/Throat: Mouth: Mucous membranes are moist. Pharynx: Oropharynx is clear. Eyes: Conjunctiva/sclera: Conjunctivae normal. Comments: 20/25 bilaterally Cardiovascular: Rate and Rhythm: Normal rate and regular rhythm. Pulses: Normal pulses. Heart sounds: Normal heart sounds. Comments: 2+ bilateral radial, dorsalis pedis, and tibialis posterior pulses Pulmonary: Effort: Pulmonary effort is normal. Breath sounds: Normal breath sounds. Abdominal: General: Abdomen is flat. Palpations: Abdomen is soft. Tenderness: There is no abdominal tenderness. Musculoskeletal: Right lower leg: No edema. Left lower leg: No edema. Skin: General: Skin is warm and dry. Neurological: Comments: Alert & Oriented to self, month, year, and place. Cranial Nerves CN I: Not assessed CN II, III, IV, : Visual zhao intact to confrontation bilaterally. PERRL. EOMI. No ptosis. CN V: No sensory deficits noted in the V1-V3 sensory distributions. CN VII: Equal smile, eye squeeze, and eyebrow raise. No facial droop observed. CN VIII: Hearing to finger rub intact bilaterally. No nystagmus. CN IX, X, XII: Uvula and tongue midline. Tongue has full ROM. Even palate raise. No dysarthria. No hoarseness. CN XI: Equal shoulder shrug and lateral head movements. Strength 5/5 strength in bilateral hand squeeze, arm flexion, arm extension, shoulder internal rotation, shoulder external rotation, shoulder abduction, shoulder adduction, plantarflexion, dorsiflexion, knee flexion, knee extension, hip flexion, hip extension, hip abduction, and hip adduction. No pronator drift. Sensation No sensory deficit to light touch over the bilateral upper and lower extremities in a dermatomal distribution. Coordination No dysmetria noted on [id number]-[id number] test. No dysdiadochokinesia noted on rapid alternating hand movement. No ataxia noted on [id number]-vc-[id number] testing. ED COURSE & MEDICAL DECISION MAKING ED Course as of 03/06/252355Mar 06, 2025 2354 ECG Sinus tachycardia at 100 BPM. No prolongation or shortening of PA or QRS intervals. QTc [address] segment elevations or depressions. No T wave inversions. Results for orders placed or performed during the hospital encounter of 03/06/25 CHEM 7 (LYTES,BUN,CREA,GLUC) Result Value Ref Range Sodium 136 135 - 145 mmol/L Potassium 3.7 3.5 - 5.0 mmol/L Chloride 104 98 - 108 mmol/L CO2 24 21 - 31 mmol/L Glucose 114 Nonfastin-179 mg/dL; Fastin-99 mg/dL BUN 11 7 - 25 mg/dL Creatinine 0.56 0.50 - 1.20 mg/dL Bun/Crea Ratio 20 Osmolality (Calculated) 285 278 - 305 mOsm/kg Anion Gap 12 7 - 17 mmol/L eGFR, CKD-EPI, Female >90 >=60 mL/min/1.73m2 PHOSPHATE, INORGANIC Result Value Ref Range Phosphorous 3.0 2.2 - 4.6 mg/dL MAGNESIUM Result Value Ref Range Magnesium 1.8 1.6 - 2.6 mg/dL CALCIUM Result Value Ref Range Calcium 9.5 8.6 - 10.5 mg/dL HIGH SENSITIVITY TROPONIN I - SINGLE ORDER Result Value Ref Range hs-Troponin I <3 <34 ng/L PT,INR,PTT Result Value Ref Range PT 14.8 (H) 11.9 - 14.2 sec INR 1.2 (H) 0.9 - 1.1 PTT 31.5 24.0 - 34.3 sec NT-PRO B-TYPE NATRIURETIC PEPTIDE Result Value Ref Range NT-Pro B-Type Natriuretic Peptide 104 <=540 pg/mL CBC AND ELECTRONIC DIFF Result Value Ref Range WBC Count 8.57 3.99 - 11.19 K/uL RBC Count 4.96 3.91 - 5.04 M/uL Hemoglobin 16.0 (H) 11.4 - 15.2 g/dL Hematocrit 45.7 (H) 34.9 - 44.3 % Mean Cell Volume 92.1 79.6 - 97.7 fL Mean Cell Hgb 32.3 25.9 - 33.9 pg Mean Cell Hgb Conc 35.0 31.4 - 35.9 g/dL RBC Distribution 13.2 10.8 - 14.9 % Platelet Count 228 150 - 393 K/uL Mean Platelet Volume 9.5 8.5 - 12.2 fL DIFF STATUS Electronic Differential Segs + Bands Auto 64.7 % Immature Grans % 1.1 % Lymphocyte % Auto 17.7 % Monocyte % Auto 15.4 % Eosinophil % Auto 0.5 % Basophil % Auto 0.6 % Nucleated RBC 0.0 <=0.2 /100 WBC Segs + Bands,Absolute Auto 5.55 1.64 - 7.28 K/uL Immature Grans Absolute 0.09 (H) <=0.08 K/uL Abs Lymph Auto 1.52 1.16 - 3.51 K/uL Abs Carlton Auto 1.32 (H) 0.22 - 0.87 K/uL Abs Eos Auto 0.04 0.00 - 0.42 K/uL Abs Baso Auto 0.05 0.00 - 0.15 K/uL CT HEAD WITHOUT CONTRAST Final Result IMPRESSION: No acute intracranial findings. I personally viewed and interpreted these images and I have reviewed and approved this report. ANGIO BRAIN/NECK Final Result IMPRESSION: No significant stenosis in the arteries of the neck and brain.. I personally viewed and interpreted these images and I have reviewed and approved this report. /HRT MACULA OU (Results Pending) OCT OPTIC NERVE OU (Results Pending) FUNDUS PHOTOGRAPHY-OU (Results Pending) MRI BRAIN WITH AND WITHOUT CONTRAST (Results Pending) MRI ORBITS WITH AND WITHOUT CONTRAST (Results Pending) Medical Decision Making 69 y.o. female with a past medical history of lyme disease and vertigo who presents with dizziness and blurred vision. Oral low suspicion for emergent pathology given the chronicity of the patient's symptoms. The patient was sent to the emergency department for evaluation of optic neuritis. Ophthalmology was consulted. They suspect the patient is not having optic neuritis, but recommended MRI brain with and without an MRI orbits with and without contrast. CT head and CT angio brain and neck were obtained to evaluate for evidence of old stroke. EKG and troponin obtained to evaluate for cardiac etiology of the patient's reported dizziness. These were negative for acute ischemic or arrhythmogenic changes. Patient is not have any significant electrolyte derangements or anemia. Given nonemergent etiology and need for MRI, plan to place patient in the observation unit for further evaluation. Amount and/or Complexity of Data Reviewed Labs: ordered. Radiology: ordered. ECG/medicine tests: ordered. Decision-making details documented in ED Course. Risk Prescription drug management. Decision regarding hospitalization. Christal White MD Resident 03/06/25 [id number] [facility] 03-06-2025 Note Acute Coronary Syndr ome (ACS): Initial Evaluation and Management: [email or web address] [facility] 03-06-2025 Emergency department Note Images from the original note were not included. Pt arrives via private ambulance from [facility]. Multiple complaints. Recommended to come to ER for specialist consult. ON arrival pt denies any new symptoms in the past 24 hours- pt states her vision issues actually started 3 days ago. Pt is alert and orientated x 4. Is difficulty to follow, poor historian though. 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 Symptom onset of slurred speech is couple of weeks. Vision changes started yesterday. Patient was examined by me she is A&O x4, negative neuro focal deficits. The patient is ambulatory. The patient was also examined by attending physician. agreed the patient needs to be transferred to the main [facility] for further evaluation of her vision changes and and fatigue. The patient needs to be seen by Ophthalmology. Patient was transferred by critical care. Assessment & Plan Initial Assessment: Georgia Ochoa presents with significant vision changes, slurred speech, and severe headache. Symptoms have progressively worsened over the past few weeks, raising concerns for a potential stroke or other neurological issues. Differential Diagnosis: - Stroke: Vision changes, slurred speech, headache. Referral to [facility] for neurological evaluation. - Lyme disease exacerbation: History of Lyme disease, but less likely due to negative tests and current symptoms. No immediate plan in ED. ED Course: - 03/06/2025: Patient evaluated for vision changes, slurred speech, and headache. - Neurological assessment conducted. - Decision made to refer patient to [facility] for further evaluation. Final Assessment: Georgia Ochoa presents with vision changes, slurred speech, and severe headache. Symptoms concerning for potential stroke or other neurological issues. Referral to [facility] for comprehensive evaluation and management. Clinical Impression: - Stroke - Lyme disease exacerbation Disposition: - Transfer: [facility] for further evaluation due to lack of necessary resources at current facility. [facility] 03-06-2025 Emergency department Note Pt coming from [facility] with concern for fatigue, dizziness, slurred speech, and blurred vision. Symptoms have been persistent for 3 weeks. Vision changes started last night. PMHx Lyme Disease. Recs for ophthalmology [facility] 03-06-2025 History of Present illness Narrative [facility] ENCOUNTER CHIEF COMPLAINT Fatigue (Came due to body weakness,headache, vision problems that started yesterday. Does have history of Lyme disease. Denies problems with urination.) HPI History of Present Illness This is a 68-year-old female with a history of chronic Lyme disease presenting with vision changes, slurred speech, and headache. She arrived at the urgent care facility by private vehicle. The patient reports experiencing visual disturbances, characterized by black and red hues, which began approximately a week ago. This morning, she was unable to see her shoes due to the black hue. These disturbances affect both eyes. She also reports difficulty with speech, specifically slurring words, which started around three weeks ago. She has been experiencing memory loss, which she attributes to her chronic Lyme disease. Her daily activities have been significantly impacted, as she is unable to perform tasks such as laundry or dressing herself. She experienced dizziness this morning, a symptom she has had previously. She also had a headache yesterday. She is uncertain if these symptoms are indicative of a stroke or an exacerbation of her Lyme disease. She does not report any shortness of breath. The patient has a prescription for cefdinir for a urinary tract infection (UTI). She was previously evaluated for a potential stroke at [place] over a year ago, but no abnormalities were found. PAST SURGICAL HISTORY: History of SENIOR CARE PROVIDER Lyme disease treated with a PICC line. FAMILY HISTORY Her mother had hypertension. PAST MEDICAL HISTORY Past Medical History: Diagnosis Date Hx of Lyme disease reports episodes 1990,1995, 2007, 2008,2011, 2023 Kidney stone SURGICAL HISTORY Past Surgical History: Procedure Laterality Date KIDNEY STONE SURGERY 1971 CURRENT MEDICATIONS Current Outpatient Medications Medication Sig atovaquone 750 MG/5ML Suspension oral suspension Take 5 mL by mouth 2 times daily. cefUROXime 500 MG tablet Take 1 tablet by mouth 2 times daily. Cholestyramine 4 GM/DOSE Powder MIX 4 GRAMS IN BEVERAGE AND DRINK FOUR TIMES DAILY Itraconazole 100 MG capsule Take 1 capsule by mouth daily. Tinidazole 500 MG tablet Take 1 tablet by mouth 2 times daily. ALLERGIES Allergies Allergen Reactions Ciprofloxacin Dyspnea and Hives dizziness Bactrim FAMILY HISTORY Family History Problem Relation Age of Onset Cataract Mother Hypertension Mother Heart Disease - Other Father Heart Disease - Other Other Hypertension Other Breast Cancer Neg Hx Ovarian Cancer Neg Hx Uterine Cancer Neg Hx Prostate Cancer Neg Hx Colon Cancer Neg Hx SOCIAL HISTORY Social History Socioeconomic History Marital status: Single Tobacco Use Smoking status: Never Smokeless tobacco: Never Vaping Use Vaping status: Never Used Substance and Sexual Activity Alcohol use: No Drug use: No Sexual activity: Not Currently Social Drivers of Health Financial Resource Strain: Low Risk (11/09/2023) Received from [facility] Overall Financial Resource Strain (CARDIA) Difficulty of Paying Living Expenses: Not very hard Food Insecurity: No Food Insecurity (11/03/2023) Received from [facility] Hunger Vital Sign Worried About Running Out of Food in the Last Year: Never true Ran Out of Food in the Last Year: Never true Transportation Needs: No Transportation Needs (05/08/2024) Received from [facility] OASIS A1250: Transportation Lack of Transportation (Medical): No Lack of Transportation (Non-Medical): No Patient Unable or Declines to Respond: No Personal Safety: Not At Risk (11/03/2023) [facility] Humiliation, Afraid, Rape, and Kick questionnaire Fear of Current or Ex-Partner: No Emotionally Abused: No Physically Abused: No Sexually Abused: No Housing Stability: Low Risk (11/03/2023) Received from [facility] Housing Stability Vital Sign Unable to Pay for Housing in the Last Year: No Number of Places Lived in the Last Year: 2 Unstable Housing in the Last Year: No PHYSICAL EXAM Vitals: 03/06/25 0956 BP: 135/74 Pulse: 101 Resp: 18 Temp: 98.7 degrees F (37.1 degrees C) TempSrc: Infrared SpO2: 99% Physical Exam Cardiovascular: Heart rate and rhythm regular, no murmurs, gallops, or rubs noted. Respiratory: Breath sounds clear to auscultation bilaterally, no wheezes, rales, or rhonchi. Neurological: Patient oriented to person and place but disoriented to time. Speech is slow. Hand contracting officer strength normal bilaterally. Physical Exam Vitals and nursing note reviewed. Constitutional: General: She is not in acute distress. Appearance: Normal appearance. She is not ill-appearing. HENT: Head: Normocephalic. Right Ear: Tympanic membrane normal. Left Ear: Tympanic membrane normal. Nose: Nose normal. Mouth/Throat: Mouth: Mucous membranes are moist. Eyes: Conjunctiva/sclera: Conjunctivae normal. Cardiovascular: Rate and Rhythm: Normal rate. Pulses: Normal pulses. Pulmonary: Effort: Pulmonary effort is normal. Breath sounds: No wheezing or rhonchi. Abdominal: General: Abdomen is flat. Musculoskeletal: General: Normal range of motion. Cervical back: Normal range of motion. Skin: General: Skin is warm. Capillary Refill: Capillary refill takes less than 2 seconds. Neurological: General: No focal deficit present. Mental Status: She is alert and oriented to person, place, and time. Cranial Nerves: No cranial nerve deficit. Sensory: No sensory deficit. Motor: No weakness. Coordination: Coordination normal. Psychiatric: Mood and Affect: Mood normal. Behavior: Behavior normal. Thought Content: Thought content normal. Judgment: Judgment normal. 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 Symptom onset of slurred speech is couple of weeks. Vision changes started yesterday. Patient was examined by me she is A&O x4, negative neuro focal deficits. The patient is ambulatory. The patient was also examined by attending physician. agreed the patient needs to be transferred to the [facility] for further evaluation of her vision changes and and fatigue. The patient needs to be seen by Ophthalmology. Patient was transferred by critical care. Assessment & Plan Initial Assessment: Georgia Ochoa presents with significant vision changes, slurred speech, and severe headache. Symptoms have progressively worsened over the past few weeks, raising concerns for a potential stroke or other neurological issues. Differential Diagnosis: - Stroke: Vision changes, slurred speech, headache. Referral to [facility] for neurological evaluation. - Lyme disease exacerbation: History of Lyme disease, but less likely due to negative tests and current symptoms. No immediate plan in ED. ED Course: - 03/06/2025: Patient evaluated for vision changes, slurred speech, and headache. - Neurological assessment conducted. - Decision made to refer patient to [facility] for further evaluation. Final Assessment: Georgia Ochoa presents with vision changes, slurred speech, and severe headache. Symptoms concerning for potential stroke or other neurological issues. Referral to [facility] for comprehensive evaluation and management. Clinical Impression: - Stroke - Lyme disease exacerbation Disposition: - Transfer: [facility] for further evaluation due to lack of necessary resources at current facility. Erick Jensen PA-C ED Physician [facility] @ [facility] THIS NOTE WAS GENERATED USING DICTATION SOFTWARE. IT HAS BEEN PROOFREAD, BUT IT IS POSSIBLE AN ERROR MAY EXIST. PLEASE EXCUSE ANY DENTAL HYGIENIST MOBILE COORDINATOR ERRORS. ED ATTENDING NOTE Chief Complaint: Fatigue (Came due to body weakness,headache, vision problems that started yesterday. Does have history of Lyme disease. Denies problems with urination.) HPI: Georgia Ochoa is a 69 y.o. female who presents with blurred vision - some difficulty with color vision, dizziness, headaches, some slurring of speech for the last 2 weeks. No focal weakness. No rash. Past Medical History: Past Medical History: Diagnosis Date Hx of Lyme disease reports episodes 1990,1995, 2007, 2008,2011, 2023 Kidney stone Vital Signs: BP 135/74 (BP Location: Right arm, BP Position: Sitting) Pulse 101 Temp 98.7 F (37.1 C) (Infrared) Resp 18 SpO2 99% Smoking Status Never Pertinent Exam: No pain on EOM. Impaired color vision test OD. Assessment/Plan/Disposition: I saw and evaluated the patient with QUINN. I provided a substantive portion of the care for this patient. I personally performed all aspects of the medical decision making for this encounter. I have reviewed and verified this with the QUINN so that it accurately reflects our care. Ro optic neuritis. Patient divulges hx/o same after exam completed - [facility] documented in this encounter [facility] 01-25-2025 History of Present illness Narrative dEPARTMENT of Emergency Medicine CHIEF COMPLAINT Foot Pain (Pt states she trip over a cord at her friends house and heard a crack to her left foot. Pt states recent injury to same foot about 3 month ago.) DAXA Ochoa is a 69 y.o. female who presents with a complaint of left foot pain. Patient states that she was at a friend's house earlier today when she tripped over a cord with her left foot. She states that she heard a crack in her foot in his currently having pain in the dorsum of the foot as well as the plantar aspect. She has a history of injury to that same foot 3 months ago. She states that she is having difficulty walking on the foot secondary to pain. She denies any numbness or tingling. She is not on any blood thinners. She denies any actual fall. She did not strike her head. She denies any neck or back pain. REVIEW OF SYSTEMS Review of Systems Constitutional: Negative for chills, fatigue and fever. Respiratory: Negative for shortness of breath. Cardiovascular: Negative for chest pain. Gastrointestinal: Negative for abdominal pain, diarrhea, nausea and vomiting. Musculoskeletal: Positive for arthralgias. Negative for back pain and joint swelling. Neurological: Negative for headaches. PAST MEDICAL HISTORY Past Medical History: Diagnosis Date Hx of Lyme disease reports episodes 1990,1995, 2007, 2008,2011, 2023 Kidney stone SURGICAL HISTORY Past Surgical History: Procedure Laterality Date KIDNEY STONE SURGERY 1972 CURRENT MEDICATIONS Current Outpatient Medications Medication Sig Dispense Refill atovaquone 750 MG/5ML Suspension oral suspension Take 5 mL by mouth 2 times daily. cefUROXime 500 MG tablet Take 1 tablet by mouth 2 times daily. Cholestyramine 4 GM/DOSE Powder MIX 4 GRAMS IN BEVERAGE AND DRINK FOUR TIMES DAILY Itraconazole 100 MG capsule Take 1 capsule by mouth daily. Tinidazole 500 MG tablet Take 1 tablet by mouth 2 times daily. No current facility-administered medications for this visit. ALLERGIES Allergies Allergen Reactions Ciprofloxacin Dyspnea and Hives dizziness Bactrim FAMILY HISTORY Family History Problem Relation Age of Onset Cataract Mother Hypertension Mother Heart Disease - Other Father Heart Disease - Other Other Hypertension Other Breast Cancer Neg Hx Ovarian Cancer Neg Hx Uterine Cancer Neg Hx Prostate Cancer Neg Hx Colon Cancer Neg Hx SOCIAL HISTORY Social History Socioeconomic History Marital status: Single Spouse name: Not on file Number of children: Not on file Years of education: Not on file Highest education level: Not on file Occupational History Not on file Tobacco Use Smoking status: Never Smokeless tobacco: Never Vaping Use Vaping status: Never Used Substance and Sexual Activity Alcohol use: No Drug use: No Sexual activity: Not Currently Other Topics Concern Not on file Social History Narrative Not on file Social Drivers of Health Financial Resource Strain: Low Risk (11/09/2023) Received from [facility] Overall Financial Resource Strain (CARDIA) Difficulty of Paying Living Expenses: Not very hard Food Insecurity: No Food Insecurity (11/03/2023) Received from [facility] Hunger Vital Sign Worried About Running Out of Food in the Last Year: Never true Ran Out of Food in the Last Year: Never true Transportation Needs: No Transportation Needs (05/08/2024) Received from [facility] OASIS A1250: Transportation Lack of Transportation (Medical): No Lack of Transportation (Non-Medical): No Patient Unable or Declines to Respond: No Physical Activity: Not on file Stress: Not on file Social Connections: Not on file Personal Safety: Not At Risk (11/03/2023) Received from [facility] Humiliation, Afraid, Rape, and Kick questionnaire Fear of Current or Ex-Partner: No Emotionally Abused: No Physically Abused: No Sexually Abused: No Housing Stability: Low Risk (11/03/2023) Received from [facility], [facility] Housing Stability Vital Sign Unable to Pay for Housing in the Last Year: No Number of Places Lived in the Last Year: 2 Unstable Housing in the Last Year: No PHYSICAL EXAM BP 134/82 (BP Location: Left arm, BP Position: Sitting) Pulse 113 Temp 98.2 F (36.8 C) (Infrared) Resp 18 SpO2 96% Smoking Status Never Physical Exam Vitals and nursing note reviewed. Constitutional: General: She is not in acute distress. Appearance: She is not toxic-appearing. HENT: Head: Normocephalic and atraumatic. Eyes: Extraocular Movements: Extraocular movements intact. Conjunctiva/sclera: Conjunctivae normal. Pupils: Pupils are equal, round, and reactive to light. Cardiovascular: Pulses: Normal pulses. Musculoskeletal: General: Normal range of motion. Cervical back: Normal range of motion and neck supple. Left ankle: Left Achilles Tendon: Tenderness present. Left foot: Normal capillary refill. Swelling and tenderness (over talar arch, medial plantar aspect of foot) present. No deformity. Normal pulse. Skin: General: Skin is warm and dry. Neurological: General: No focal deficit present. Mental Status: She is alert and oriented to person, place, and time. Psychiatric: Mood and Affect: Mood normal. CLINIC COURSE, MEDICAL DECISION MAKING, PLAN OF CARE XR ANKLE LEFT 3+ VIEWS Final Result IMPRESSION: Decreased bony mineralization No acute osseous abnormality of the ankle or foot Remote ligamentous injury of the ankle Calcaneal enthesopathy Forefoot and midfoot osteoarthritis FOOT LEFT 3+ VIEWS Final Result IMPRESSION: Decreased bony mineralization No acute osseous abnormality of the ankle or foot Remote ligamentous injury of the ankle Calcaneal enthesopathy Forefoot and midfoot osteoarthritis Differential Diagnosis/Impression: Fracture, soft tissue injury Patient is overall well-appearing. There is no gross deformity of the left foot, pulses, cap refill all intact. X-ray was obtained which does not show any evidence of any acute abnormality of the ankle or foot. Patient with a remote ligament injury of the ankle. I discussed these results with patient. She does have a boot at home which she will use. She does have a pricing intern with whom she can follow-up. Patient educated to take Tylenol, ibuprofen for pain management. Patient to return for any acute changes in symptoms. Plan of Care/Disposition: Foot sprain Reasons to return or proceed to the ED, potential complications, expected course of the patient's condition, and recommended treatments were discussed with the patient. The patient was also instructed to follow up with their primary care physician and/or any appropriate specialists. The patient expressed understanding and agreement, and will be discharged in good condition. This was an independent nurse practitioner visit. Voice recognition software was used in producing this note. Please excuse any grammatical or spelling errors documented in this encounter [facility] 01-25-2025 Instructions SHAREE [facility] - 01/25/2025 5:00 PM EDT Please wear your boot at home for comfort. Please follow-up with your pricing intern. The following attachments cannot be sent through Care Everywhere.Foot Sprain ([place] Citizen)documented in this encounter [facility] 01-25-2025 Miscellaneous Notes Addended by: LYNDA VEGA on: 01/25/2025 05:32 PM Modules accepted: Orders documented in this encounter [facility] 01-25-2025 Note Addended by: Candelaria VEGA on: 01/25/2025 05:32 PM Modules accepted: Orders [facility] 12-18-2024 Hospital Discharge instructions KIERAN Mendiola - 12/18/2024 3:42 AM EDT Today you were seen for upper abdominal pain with nausea and vomiting. Your blood test here showed no significant abnormalities. Your urine did show signs of infection. You received a dose of IV antibiotics here in the ER. Please restart oral antibiotics in approximately 24 hours. Please drink plenty of fluids and urinate often. Your cardiac workup here was unremarkable. Your CT showed no significant acute life-threatening abnormality. Did have incidental gallstones which could be contributing. Could also be related to a virus or generalized upset stomach. Please monitor your abdominal pain and vomiting. Return immediately if any new or worsening symptoms for reassessment. Otherwise follow-up with family doctor in 5 to 7 days for recheck. As we discussed you did have incidental findings on your CT including diverticulosis, umbilical hernia, liver/kidney cyst, kidney stones. Please follow-up with PCP, urology, general surgery as discussed. The following attachments cannot be sent through Care Everywhere.Bladder Diet ([place])UTI (Urinary Tract Infection): Female ([place] Citizen)Nausea and Vomiting ([place])Abdominal Pain ([place])Gallstones ([place])Kidney Stone ([place])Umbilical Hernia ([place])Diverticulosis ([place])documented in this encounter [facility] 12-18-2024 History of Present illness Narrative Pt arrives ambulatory to ED for c/o abdominal pain and emesis. Pt began vomiting x5 tonight around 2144. Pt states her abdominal pain is right sided and wraps around to her back. documented in this encounter [facility] 11-17-2024 History of Present illness Narrative This [facility] director hris attempted to contact patient regarding referral to [facility] program placed by PCP at request of [facility]. The patient did not answer. Voice mail message was left with request for return call. THIRD and final attempt. [phone] documented in this encounter [facility] 11-15-2024 History of Present illness Narrative Office Visit Note - 11/15/2024 Patient: GEORGIA OCHOA CC: Chief Complaint Patient presents with Hearing Loss Cc: pt here for 3 week follow up. HPI: F/U visit for otomycosis, left ear drainage. She reports the left ear is no longer draining. No itching. Right ear is itching, but no drainage. Reports her hearing is back to her baseline. 10/25/24: Was improved after completing clotrimazole, but left ear drainage returned. Left ear was debrided and CORTÉS powder was applied. 09/27/24: Had findings of bilateral otomycosis. CT temporal bones was reviewed. She was to use clotrimazole x 14 days. The past medical history, past surgical history, family history, social history, medications, allergies, and review of systems were reviewed today and are documented in [facility] &/or a scanned document completed by the patient (or guardian). Physical Exam: Pulse 103 Ht 1.676 m (5' 6) Wt 86.2 kg (190 lb) SpO2 97% BMI 30.67 kg/m Smoking Status Never Head and Face Inspection: Normocephalic and atraumatic without masses or lesions Palpation: No mastoid tenderness or fluctuance Salivary Glands: No masses or tenderness Facial Strength: Facial motility symmetric and full bilaterally Left- House-Brackman Grade 1/6 Right- House-Brackman Grade 1/6 Ear Periauricular Skin: Left - No lesions Right - No lesions Pinna: Left - External ear intact and fully developed Right - External ear intact and fully developed External canal: Left - Canal is patent with intact skin; small amount of CORTÉS powder in canal Right - Canal is patent with intact skin Tympanic Membranes: Left - Clear and mobile Right - Clear and mobile Middle Ears: Left - Aerated, no effusion, no masses Right - Aerated, no effusion, no masses Medical Decision Making: Data Reviewed Reviewed office note from [facility] 09/15/24: Had right ear irrigated CT temporal bones 08/30/24: 1. Mild soft tissue thickening along the right external ear and external auditory canal could be related to otitis externa. 2. Nonspecific patchy partial mastoid air cell opacification bilaterally, somewhat greater on the right. This is entirely nonspecific and could simply be reactive, although careful clinical correlation and monitoring for developing mastoiditis is requested. No destructive bony changes to suggest coalescent mastoiditis. Assessment: Otomycosis, left (resolved) Otorrhea, left (resolved) Plan: Patient reports left ear is no longer draining. No itching. Hearing has returned to her baseline. Ear exam normal bilaterally. Small amount of CORTÉS powder in left EAC, removed today. Okay to stop using CORTÉS powder. Follow up: amy Jean DNP, [employer] POLISHER-INTERNAL MEDICINE NURSE PRACTITIONER [facility] Department of Otolaryngology Division [facility] [address] [place] [address] Phone: [phone] documented in this encounter [facility] 11-03-2024 History of Present illness Narrative This [facility] director hris attempted to contact patient regarding referral to BHI program placed by PCP at request of [facility]. The patient did not answer. Voice mail message was left with request for return call. SECOND attempt. [phone] documented in this encounter [facility] 10-25-2024 History of Present illness Narrative Office Visit Note - 10/25/2024 Patient: GEORGIA OCHOA CC: Chief Complaint Patient presents with Follow-up CC: pt here for fluid draining left ear HPI: F/U visit for otomycosis, left ear drainage. Reports her left ear started to drain again about 2 days ago. Was feeling improved after using clotrimazole x 14 days. Right ear is improved. Some pain in the left ear as well. Reports her hearing is muffled on the left. 09/27/24: Had findings of bilateral otomycosis. CT temporal bones was reviewed. She was to use clotrimazole x 14 days. The past medical history, past surgical history, family history, social history, medications, allergies, and review of systems were reviewed today and are documented in IHIS &/or a scanned document completed by the patient (or guardian). Physical Exam: Pulse 128 Ht 1.676 m (5' 6) Wt 86.2 kg (190 lb) SpO2 96% BMI 30.67 kg/m Smoking Status Never Head and Face Inspection: Normocephalic and atraumatic without masses or lesions Palpation: No mastoid tenderness or fluctuance Salivary Glands: No masses or tenderness Facial Strength: Facial motility symmetric and full bilaterally Left- House-Brackman Grade 1/6 Right- House-Brackman Grade 1/6 Ear Periauricular Skin: Left - No lesions Right - No lesions Pinna: Left - External ear intact and fully developed Right - External ear intact and fully developed External canal: Left - Thick discharge, consistent with otomycosis Right - Canal is patent with intact skin; small amount of cerumen present Tympanic Membranes: Left - Inflamed Right - Clear and mobile Middle Ears: Left - Aerated, no effusion, no masses Right - Aerated, no effusion, no masses Procedures: Due to patient's complaints, it was medically necessary to perform otologic examination using binocular microscopy. Procedure Note: Diagnosis: Otomycosis, left Procedure: Bilateral Otologic Binocular Microscopy Anesthesia: None Indications and Consent: The patient is a 68 y.o. female who presents for bilateral otologic binocular microscopy. Prior to the procedure, the benefits and risks of otologic microscopy were discussed with the patient (and/or the consenting guardian), including but not limited to bleeding, infection, injury to skin of the ear canal, and the need for further procedure(s). The patient (guardian) understood and wished to proceed. Procedure/Findings: The right external auditory canal was visualized using the operating microscope. Findings are as documented in the physical exam portion of this note. A similar procedure was then performed on the left ear, and findings are documented in the physical exam portion of this note. EBL: None Complications: None Medical Decision Making: Data Reviewed Reviewed office note from [facility] 09/15/24: Had right ear irrigated CT temporal bones 08/30/24: 1. Mild soft tissue thickening along the right external ear and external auditory canal could be related to otitis externa. 2. Nonspecific patchy partial mastoid air cell opacification bilaterally, somewhat greater on the right. This is entirely nonspecific and could simply be reactive, although careful clinical correlation and monitoring for developing mastoiditis is requested. No destructive bony changes to suggest coalescent mastoiditis. Assessment: Otomycosis, left Otorrhea, left Plan: Patient reports she was improved after completing clotrimazole, however left ear drainage has returned. On exam, thick drainage on the left consistent with otomycosis. Right ear with small amount of cerumen present. Left ear debrided today. CORTÉS powder applied and provided for patient. Dry ear precautions. Follow up: 3 weeks Shelby Jean DNP, [employer] POL[employer]ER-INTERNAL MEDICINE NURSE PRACTITIONER [facility] Department of Otolaryngology Division of [facility] [address] [place] [address] Phone: [phone]) Electronically signed by Adrian Jean, [employer]ER-INTERNAL MEDICINE NURSE PRACTITIONER at 10/25/2024 3:40 PM EST documented in this encounter [facility] 10-21-2024 Telephone encounter Note [facility], for Chronic Lyme's disease. Conferenced to infectious disease gaming table operator, Carroll, at [phone], for further assistance. [facility] 10-21-2024 Miscellaneous Notes [facility], for Chronic Lyme's disease. Conferenced to infectious disease gaming table operator, Carroll, at [phone], for further assistance. documented in this encounter [facility] 09-28-2024 Emergency department Note Bed: [facility] Expected date: Expected time: Means of arrival: Comments: Del9 68f Lankle pain pulse intact 110sr 125/86 98ra [facility] 09-28-2024 History of Present illness Narrative HPI Chief Complaint Patient presents with Ankle Pain Ankle pain after a fall HPI Georgia Ochoa is a very pleasant 68 y.o. female who presents with complaint of left-sided foot pain after she rolled her ankle when she stepped on a walnut. She denies hitting her head, any loss of consciousness being on any blood thinners, numbness, focal weakness, or any injury elsewhere. Patient has not attempted to put any weight on her left foot since the injury which occurred shortly prior to arrival to the ED. Medical History Past Medical History: No date: Lyme disease History reviewed. No pertinent surgical history. No family history on file. Social History Tobacco Use Smoking status: Never Smokeless tobacco: Never Alcohol use: Not Currently Drug use: Not Currently Previous Records Reviewed: Yes REVIEW OF SYSTEMS: Negative except as noted in the HPI. PHYSICAL EXAMINATION: ED Triage Vitals Temp: 36.6 C (97.8 F) [09/28/241741] Heart Rate: 104 [09/28/241739] Resp: 18 [09/28/241741] BP: (!) 151/97 [09/28/241739] SpO2: 99 % [09/28/241739] Temp Source: Oral [09/28/241741] Heart Rate Source: n/a Patient Position: n/a BP Location: n/a FiO2 (%): n/a Last Charted Vital Signs: 09/28/241899 BP: Pulse: 102 Resp: Temp: SpO2: 100% Pulse Ox Interpretation: Oxygen saturation is 100% which is normal. Constitutional: Alert, Well appearing, Well nourished, Non-toxic appearing Head: Normocephalic, Atraumatic Eyes: No scleral icterus Nose: Normal in appearance Mouth: Moist mucous membranes Neck: Supple, Trachea midline Cardiovascular: Regular rate and rhythm, no murmurs, rubs, or gallops Respiratory: Clear to auscultation bilaterally without wheezes, rhonchi, rales. Equal air exchange without accessory muscle use. Gastrointestinal: Non-distended, Non-tender, No rebound or guarding. Soft without rigidity. Genitourinary: Deferred Skin: Normal for age, No rash or lesions Musculoskeletal: Normal peripheral perfusion and pulses. Mild swelling to the dorsal left midfoot with pain on palpation. The Achilles tendon is intact. No pain on palpation of the proximal tibia/fibula, or any pain with passive range of motion of the ipsilateral knee. Neurologic: Awake, Alert, Answers questions appropriately without slurred speech, No focal deficits SPLINT CHECK: Location details: Left foot Splint type: Posterior ankle splint Post-procedure: The splinted body part was neurovascularly unchanged following the procedure. MEDICAL DECISION MAKING: X-rays of the left foot and left ankle were independently interpreted by myself and confirmed by radiology and shows a avulsion fracture of the cuboid. Patient does have point tenderness there, making it likely acute. Otherwise the rest of the imaging was negative for acute process. Patient is neurovascular intact distally. Will place patient in posterior ankle splint and have her nonweightbearing; will provide her with crutches. A copy of the imaging was given to patient on disc. Will prescribe patient course of pain medication, as well, until she can follow-up with orthopedic surgery. Results and treatment plan discussed with patient as well as significant other who is now at bedside. The patient is very well-appearing. At this time, I feel the benefits of discharge outweigh risks. She was discharged with strict return precautions and instructions for prompt outpatient follow up. ASSESSMENT: 1. Acute closed displaced fracture of the left cuboid Óscar Carvalho DO [place] Coma Scale Score: 15 Patient History Past Medical History: Diagnosis Date Lyme disease History reviewed. No pertinent surgical history. No family history on file. Social History Tobacco Use Smoking status: Never Smokeless tobacco: Never Substance Use Topics Alcohol use: Not Currently Drug use: Not Currently Review of Systems Review of Systems Physical Exam ED Triage Vitals Temp Heart Rate Resp BP 09/28/24 1742 09/28/24 1740 09/28/24 17409/28/24 174 36.6 C (97.8 F) 104 18 (!) 151/97 SpO2 Temp Source Heart Rate Source Patient Position 09/28/24 1740 09/28/241741 -- -- 99 % Oral BP Location FiO2 (%) -- -- Physical Exam ED Course & MDM Clinical Impressions as of 09/29/24 0120 Closed displaced fracture of cuboid of left foot, initial encounter Medical Decision Making Procedures Óscar Carvalho DO 09/29/24 0126 documented in this encounter [facility] 09-28-2024 Miscellaneous Notes Bed: [facility] Expected date: Expected time: Means of arrival: Comments: Del9 68f Lankle pain pulse intact 110sr 125/86 98ra documented in this encounter [facility] 09-27-2024 History of Present illness Narrative Office Visit Note - 09/27/2024 Patient: GEORGIA OCHOA CC: Chief Complaint Patient presents with Hearing Loss Troubles hearing bilaterally , feels like ears infection has gone away HPI: Ms. Georgia Ochoa is a 68 y.o. female presenting to the [facility] Department of Otolaryngology for evaluation of hearing loss. She reports a hx of lyme disease x2 (1990 and 2007). Was treated for this in [place]. Has lost cognitive function. Reports she now has chronic lyme disease. Has seen Neurology and Psychiatry at [place]. She reports she keeps losing her hearing. Currently she has needed to turn up her television. She recently had her right ear flushed out by Urgent Care. Has never worn hearing aids. Has not had a hearing test. Intermittent ear pain on the left. Some black drainage. History of Ear Surgery? No Prior Imaging? CT temporal bones, MRI brain The past medical history, past surgical history, family history, social history, medications, allergies, and review of systems were reviewed today and are documented in TEJA &/or a scanned document completed by the patient (or guardian). Allergies: Allergies Allergen Reactions Ciprofloxacin Dyspnea and Hives dizziness Bactrim (disclaimer: This list is only as current as the patient's awareness of her own medical history) Medications: Current Outpatient Medications Medication Sig ceFEPIme 2 g Recon Soln DAPTOmycin injection Azithromycin 500 MG Recon Soln (Patient not taking: Reported on 09/15/2024) cefTRIAXone 10 g Recon Soln (Patient not taking: Reported on 09/15/2024) CUSTOM MEDICATION Please complete lyme disease testing on serum sample (Patient not taking: Reported on 07/16/2024) guaiFENesin-codeine 100-10 MG/5ML Solution Take 5 mL by mouth every 6 hours as needed for Cold Symptoms or Cough for up to 7 days. (disclaimer: This list is only as current as the patient's awareness of her own medical history) Physical Exam: General Pulse 100 Wt 85.7 kg (189 lb) SpO2 98% BMI 30.51 kg/m Smoking Status Never General: Well-developed, well-nourished Communication and Voice: Clear pitch and clarity, age appropriate Head and Face Inspection: Normocephalic and atraumatic without masses or lesions Facial Strength: Facial motility symmetric and full bilaterally Left - House-Brackman Grade 1/6 Right - House-Brackman Grade 1/6 ENT NECK: Normal symmetry and overall appearance as well as tracheal position Respiratory Respiratory effort: Breathing comfortably. No stridor Eyes Nystagmus: None Neuro/Psych/Balance Orientation: Patient oriented to person, place, and time Affect: Appropriate mood and affect Gait: Intact with no imbalance Cranial nerves: II-XII are intact Ear Pinna: Left - External ear intact and fully developed Right - External ear intact and fully developed External canal: Left - Black thick drainage Right - Thick drainage, hyphae present Tympanic Membranes: Left - Thickened Right - Thickened Middle Ears: Left - Unable to visualize Right - Unable to visualize Procedure Note: Due to patient's complaints, it was medically necessary to perform otologic examination using binocular microscopy. Procedure Note: Diagnosis: Otomycosis, bilateral Procedure: Bilateral Otologic Binocular Microscopy Anesthesia: None Indications and Consent: The patient is a 68 y.o. female who presents for bilateral otologic binocular microscopy. Prior to the procedure, the benefits and risks of otologic microscopy were discussed with the patient (and/or the consenting guardian), including but not limited to bleeding, infection, injury to skin of the ear canal, and the need for further procedure(s). The patient (guardian) understood and wished to proceed. Procedure/Findings: The right external auditory canal was visualized using the operating microscope. Findings are as documented in the physical exam portion of this note. A similar procedure was then performed on the left ear, and findings are documented in the physical exam portion of this note. EBL: None Complications: None Medical Decision Making: Data Reviewed Reviewed office note from [facility] 09/15/24: Had right ear irrigated CT temporal bones 08/30/24: 1. Mild soft tissue thickening along the right external ear and external auditory canal could be related to otitis externa. 2. Nonspecific patchy partial mastoid air cell opacification bilaterally, somewhat greater on the right. This is entirely nonspecific and could simply be reactive, although careful clinical correlation and monitoring for developing mastoiditis is requested. No destructive bony changes to suggest coalescent mastoiditis. MRI brain w/w contrast 11/04/23: No acute intracranial process, recent infarction, or abnormal enhancement. [facility] and outside Medical Records were reviewed and were consistent with history documented in the HPI. Impression: Otomycosis, bilateral Plan: Patient was recently seen at Urgent Care. Right ear was irrigated. She is still having intermittent pain in the left ear. She is most concerned over her hearing loss. On exam, findings consistent with otomycosis bilaterally. Both ears debrided. Reviewed CT temporal bones. Clotrimazole BID x 14 days. Reviewed administration instructions. Rx sent to pharmacy. Dry ear precautions. Follow up: 3-4 weeks Shelby Jean DNP, RE[employer] POL[employer]ER-INTERNAL MEDICINE NURSE PRACTITIONER [facility] Department of Otolaryngology Division of [facility] [address] [place] [address] Phone: [phone] documented in this encounter [facility] 09-15-2024 History of Present illness Narrative [facility] ENCOUNTER CHIEF COMPLAINT Ear Pain (Bilateral ear fullness and pain for a few days./Currently being treated for lyme disease with IV ATB.) [facility] Georgia Ochoa is a 68 y.o. female with PMHx of remote lyme disease-not confirmed, possible schizotypal disorder, depression, unclear if cognitive impairment who presents with right ear hearing loss over the last 2 weeks. Denies trauma or injury but has been using a Q-tip in her left ear. No fevers or chills, no drainage. No headache, no sore throat. Patient often perseverates on her history of Lyme disease leading to memory loss. Per chart review, the patient had an extensive hospitalization in October of 2023 through [facility] with extensive evaluation by Neurology and Psychology with suspected underlying major depressive disorder, schizotypal disorder and possible impaired cognition. 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 No concern for neuropsychiatric complications of lyme disease and recommended referral to psychiatry. Family history is noncontributory. PAST MEDICAL HISTORY Past Medical History: Diagnosis Date Hx of Lyme disease reports episodes 1990,1995, 2007, 2008,2011, 2023 Kidney stone SURGICAL HISTORY Past Surgical History: Procedure Laterality Date KIDNEY STONE SURGERY 1972 CURRENT MEDICATIONS Current Outpatient Medications Medication Sig ceFEPIme 2 g Recon Soln DAPTOmycin injection Azithromycin 500 MG Recon Soln (Patient not taking: Reported on 09/15/2024) cefTRIAXone 10 g Recon Soln (Patient not taking: Reported on 09/15/2024) CUSTOM MEDICATION Please complete lyme disease testing on serum sample (Patient not taking: Reported on 07/16/2024) guaiFENesin-codeine 100-10 MG/5ML Solution Take 5 mL by mouth every 6 hours as needed for Cold Symptoms or Cough for up to 7 days. ALLERGIES Allergies Allergen Reactions Ciprofloxacin Dyspnea and Hives dizziness Bactrim FAMILY HISTORY Family History Problem Relation Age of Onset Cataract Mother Hypertension Mother Heart Disease - Other Father Heart Disease - Other Other Hypertension Other Breast Cancer Neg Hx Ovarian Cancer Neg Hx Uterine Cancer Neg Hx Prostate Cancer Neg Hx Colon Cancer Neg Hx SOCIAL HISTORY Social History Socioeconomic History Marital status: Single Tobacco Use Smoking status: Never Smokeless tobacco: Never Substance and Sexual Activity Alcohol use: No Drug use: No Sexual activity: Not Currently Social Determinants of Health Financial Resource Strain: Low Risk (11/09/2023) Received from [facility] Overall Financial Resource Strain (CARDIA) Difficulty of Paying Living Expenses: Not very hard Food Insecurity: No Food Insecurity (11/03/2023) Received from [facility] Hunger Vital Sign Worried About Running Out of Food in the Last Year: Never true Ran Out of Food in the Last Year: Never true Transportation Needs: No Transportation Needs (05/08/2024) Received from [facility] OASIS A1250: Transportation Lack of Transportation (Medical): No Lack of Transportation (Non-Medical): No Patient Unable or Declines to Respond: No Intimate Partner Violence: Not At Risk (11/03/2023) Received from [facility] Humiliation, Afraid, Rape, and Kick questionnaire Fear of Current or Ex-Partner: No Emotionally Abused: No Physically Abused: No Sexually Abused: No Housing Stability: Low Risk (11/03/2023) [facility] Housing Stability Vital Sign Unable to Pay for Housing in the Last Year: No Number of Places Lived in the Last Year: 2 Unstable Housing in the Last Year: No REVIEW OF SYSTEMS Please see the HPI for all pertinent positive and negatives. All other systems was performed and are negative unless otherwise stated above. PHYSICAL EXAM VITAL SIGNS: BP (!) 178/96 Pulse 86 Temp 98.1 F (36.7 C) (Infrared) Resp 16 SpO2 95% Smoking Status Never Constitutional: No acute distress. Non-toxic appearance. Perseverates about Lyme disease. Age-appropriate, alert. Obese female. Poorly kempt. Incontinent of urine HENT: Atraumatic. Normocephalic. Phonation normal. Unremarkable oropharynx. Cerumen impaction to the right TM. There is a small amount of dried blood in the left external canal and slightly dull tympanic membrane on the left but no obvious cerumen impaction. There is no mastoid tenderness. Neck: Normal range of motion. No midline spinous process tenderness. No step-offs. Supple. No appreciable cervical lymphadenopathy. Eyes: Conjunctiva normal. No discharge. PERRL anicteric, no conjunctival pallor. No drainage. Respiratory: No respiratory distress. No rales. No ronchi. No wheezes. No stridor. Normal air movement. Patient able to talk in full sentences. No conversational dyspnea, symmetric chest rise, no consolidation, no crackles Cardiovascular: Regular rate and rhythm. No murmurs. No gallops. No rubs. GI: Non distended. Nontender. No rebound. No guarding. No masses. Obese abdomen. Musculoskeletal: Intact distal pulses. No edema Integument: No erythema. No rash. No diaphoresis. No cyanosis. Neurologic: Alert & oriented x 3. Cranial nerves grossly intact. Psychiatric: Wandering affect, perseverates over Lyme disease. Good eye contact but otherwise disheveled, poor personal hygiene and odor of urine incontinence poor insight CLINIC COURSE, MEDICAL DECISION MAKING, PLAN OF CARE On 09/15/2024 I saw and examined the patient. No results found for this visit on 09/15/24. No orders to display Labs and imaging personally reviewed Differential Diagnosis/Impression: Cerumen impaction, lower suspicion for otitis media lower suspicion for otitis externa; low suspicion for sinusitis, clinical history was somewhat difficult to obtain due to underlying possible psychiatric disorder versus neurocognitive impairment. Per chart review, the patient has previously been evaluated both by Psychiatry and Neurology with the parent neurocognitive testing in February with a diagnosis of frontal network syndrome and possibility of underlying vascular disease. I would suspect possible vascular dementia. Patient was also been given a diagnosis of schizotypal disorder by Psychiatry and is unclear if she has followed up with Psychiatry. Or guarding proceed history of sequela of due to Lyme disease it appears that all studies from 2017 were negative and this diagnosis is somewhat unclear. Regardless, we did perform irrigation of the right ear with significant disimpaction. Hope this will assist her with conductive hearing loss. She has ENT follow up on September 27 and she will be referred back to ENT for further evaluation. Unfortunately we do not have social work here and it appears she has linked with an outpatient [facility] provider. I suspect she needs close Psychiatry and possible repeat neurocognitive testing. Final Diagnosis: Hearing loss secondary to right cerumen impaction; neurocognitive impairment versus schizotypal disorder Disposition: Discharge Follow up with primary care doctor in 1-7 days. Go to the Emergency Department for persistent or worsening symptoms. Rhina Ramirez DO, MPH Immediate Care Attending Physician [facility] THIS NOTE WAS GENERATED USING DICTATION SOFTWARE. PLEASE EXCUSE ANY DENTAL HYGIENIST MOBILE COORDINATOR ERRORS. documented in this encounter [facility] 09-15-2024 Instructions Rhina Ramirez DO, MPH - 09/15/2024 12:50 PM EST Please follow up with ENT as scheduled on 09/27/24. Please follow up with psychiatry and consider a repeat neurocognitive test for memory loss. The following attachments cannot be sent through Care Everywhere.Earwax Blockage ([place] Citizen)documented in this encounter [facility] 09-05-2024 History of Present illness Narrative dEPARTMENT of Emergency Medicine CHIEF COMPLAINT Cough (Was seen last week for ear infection. Now has a productive cough and chills x3 days. Denies any other symptoms. ) HPI Georgia Ochoa is a 68 y.o. female who presents The patient presents with a cough and cold illness that has been ongoing for several days. She actually has a ear infection that they put an ear wick into and she has been utilizing that medication for at least a week and that area feels better. She was having stuffy nose. She was having coughing and she coughs throughout the entire day with more coughing in the afternoon and evening and she was having trouble sleeping. No documented elevated temperature. It says the cough is productive but there is really no significant mucus. More likely than not the mucus were seen is drainage from above. No pleurisy. REVIEW OF SYSTEMS Review of Systems Symptoms of cough and cold illness that has been on going for the last week. Prior to that she had a right external otitis. The ear work appears to be still in the ear canal although it is rather deep in the canal. He had asked that I remove it. PAST MEDICAL HISTORY Past Medical History: Diagnosis Date Hx of Lyme disease reports episodes 1990,1995, 2007, 2008,2011 Kidney stone SURGICAL HISTORY Past Surgical History: Procedure Laterality Date KIDNEY STONE SURGERY 1972 CURRENT MEDICATIONS Current Outpatient Medications Medication Sig Dispense Refill Azithromycin 250 MG tablet Take by mouth 2 tablets (500 mg) on Day 1, then 1 tablet (250 mg) daily on Days 2-5 6 tablet 0 Azithromycin 500 MG Recon Soln cefTRIAXone 10 g Recon Soln CUSTOM MEDICATION Please complete lyme disease testing on serum sample (Patient not taking: Reported on 07/16/2024) 1 Each 0 guaiFENesin-codeine 100-10 MG/5ML Solution Take 5 mL by mouth every 6 hours as needed for Cold Symptoms or Cough for up to 7 days. 118 mL 0 No current facility-administered medications for this visit. ALLERGIES Allergies Allergen Reactions Ciprofloxacin Dyspnea and Hives dizziness Bactrim FAMILY HISTORY Family History Problem Relation Age of Onset Cataract Mother Hypertension Mother Heart Disease - Other Father Heart Disease - Other Other Hypertension Other Breast Cancer Neg Hx Ovarian Cancer Neg Hx Uterine Cancer Neg Hx Prostate Cancer Neg Hx Colon Cancer Neg Hx SOCIAL HISTORY Social History Socioeconomic History Marital status: Single Spouse name: Not on file Number of children: Not on file Years of education: Not on file Highest education level: Not on file Occupational History Not on file Tobacco Use Smoking status: Never Smokeless tobacco: Never Substance and Sexual Activity Alcohol use: No Drug use: No Sexual activity: Not Currently Other Topics Concern Not on file Social History Narrative Not on file Social Determinants of Health Financial Resource Strain: Low Risk (11/09/2023) Received from [facility] Overall Financial Resource Strain (CARDIA) Difficulty of Paying Living Expenses: Not very hard Food Insecurity: No Food Insecurity (11/03/2023) Received from [facility] Hunger Vital Sign Worried About Running Out of Food in the Last Year: Never true Ran Out of Food in the Last Year: Never true Transportation Needs: No Transportation Needs (05/08/2024) Received from [facility] OASIS A1250: Transportation Lack of Transportation (Medical): No Lack of Transportation (Non-Medical): No Patient Unable or Declines to Respond: No Physical Activity: Not on file Stress: Not on file Social Connections: Not on file Intimate Partner Violence: Not At Risk (11/03/2023) [facility] Humiliation, Afraid, Rape, and Kick questionnaire Fear of Current or Ex-Partner: No Emotionally Abused: No Physically Abused: No Sexually Abused: No Housing Stability: Low Risk (11/03/2023) Received from [facility] Housing Stability Vital Sign Unable to Pay for Housing in the Last Year: No Number of Places Lived in the Last Year: 2 Unstable Housing in the Last Year: No PHYSICAL EXAM BP 134/85 (BP Location: Left arm, BP Position: Sitting) Pulse 100 Temp 97.5 F (36.4 C) (Infrared) Resp 18 SpO2 96% Smoking Status Never Physical Exam Patient was awake alert active. Vital signs were reviewed. Mental status is good. The heart is regular rate and rhythm. 88 beats per minute when I listen. Mild systolic murmur at the aorta. Lungs show no rales, rhonchi, wheezing, elevated respiratory rate, or utilization of accessory respiratory muscles. Harsh cough is periodically noted. The right ear shows evidence of an ear wick in place and I did remove it in the canal actually looks good so I think bed infection is cleared up nicely. Tympanic membrane is good. Left ear unremarkable. Pharynx with lymphoid hyperplasia but otherwise good. Mucosa moist. ED COURSE & MEDICAL DECISION MAKING @EDCOURSE@ The influenza a/B swab negative. COVID swab negative. Strep screen negative. After discussion, the patient would prefer to be on antibiotics. She had a discussion with reference to her Lyme disease that was not treated initially with antibiotics so she has concerns. I placed her on Zithromax. I did place her on cough syrup for the afternoon and evening. Diagnosis is acute upper respiratory infection with bronchitis/coughing-persistent @[id number]@ documented in this encounter [facility] 08-30-2024 Emergency department Note JACOB provided patient with a Lyft home. [facility] 08-30-[facility]24 Emergency department Note JACOB provided patient with a Lyft home. REBECA [facility] Emergency Department Front End Update Note Chief Complaint Patient presents with Ear Pain HPI Georgia Ochoa is a 68 y/o female with a past medical history of multiple times of lyme disease/PICC line and right ear pain. She has been on three rounds of antibiotic therapy. Initial physical exam and medical history performed by ED Attending. Past Medical History: Diagnosis Date Hx of Lyme disease reports episodes 1990,1995, 2007, 2008,2011 Kidney stone Physical Exam BP 150/85 Pulse 90 Temp 97.8 F (36.6 C) (Oral) Resp 16 Ht 1.676 m (5' 6) SpO2 95% Smoking Status Never ED Course Medical Decision Making Amount and/or Complexity of Data Reviewed Radiology: ordered. CT Temporal Bone: 1. Mild soft tissue thickening along the right external ear and external auditory canal could be related to otitis externa. 2. Nonspecific patchy partial mastoid air cell opacification bilaterally, somewhat greater on the right. This is entirely nonspecific and could simply be reactive, although careful clinical correlation and monitoring for developing mastoiditis is requested. No destructive bony changes to suggest coalescent mastoiditis. ENT consult, derrickuted with recommendations for outpatient follow up and to go home with cortisporin gtts tid x 10 days. Diagnosis: Otitis Externa BPPV SHAREE Early 08/30/242038 HISTORY 68 y.o. 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 She is on chronic cefepime, daptomycin and doxycycline and has completed two courses of oral antibiotics as well as polytrim ear drops. She was seen at [facility] and sent due to fever, drainage and pain despite treatment. She also developed a low-grade fever to 99.9. Denies DM. PHYSICAL EXAM height is 1.676 m (5' 6). Her oral temperature is 97.8 F (36.6 C). Her blood pressure is 150/85 and her pulse is 90. Her respiration is 16 and oxygen saturation is 95%. General: well appearing, no distress HEENT: normocephalic, moist membranes, left TM clear, right ear shows mild tragal tenderness, no bulging, grayish exudate in the canal, unable to visualize TM. Respiratory: clear to auscultation, no wheezes, rales, or rhonchi Cardiovascular: regular rate and rhythm, no murmurs, rubs, or gallops Skin: warm, dry, no diaphoresis Lymphadenopathy: no pre- or post-auricular nodes ASSESSMENT Patient seen and examined independently. QUINN to follow IMPRESSION Right otitis externa Medical Decision Making Right otitis externa, refractory: labs, CT temporal bones, ENT to see Amount and/or Complexity of Data Reviewed Radiology: ordered. PAST MEDICAL HISTORY Past Medical History: Diagnosis Date Hx of Lyme disease reports episodes 1990,1995, 2007, 2009,2012 Kidney stone PAST SURGICAL HISTORY Past Surgical History: Procedure Laterality Date KIDNEY STONE SURGERY 1972 ALLERGIES Allergies Allergen Reactions Ciprofloxacin Dyspnea and Hives dizziness Bactrim SOCIAL HISTORY Social History Socioeconomic History Marital status: Single Tobacco Use Smoking status: Never Smokeless tobacco: Never Substance and Sexual Activity Alcohol use: No Drug use: No Sexual activity: Not Currently Social Determinants of Health Financial Resource Strain: Low Risk (11/09/2023) Received from [facility] Overall Financial Resource Strain (CARDIA) Difficulty of Paying Living Expenses: Not very hard Food Insecurity: No Food Insecurity (11/03/2023) Received from [facility] Hunger Vital Sign Worried About Running Out of Food in the Last Year: Never true Ran Out of Food in the Last Year: Never true Transportation Needs: No Transportation Needs (05/08/2024) Received from [facility] OASIS A1250: Transportation Lack of Transportation (Medical): No Lack of Transportation (Non-Medical): No Patient Unable or Declines to Respond: No Intimate Partner Violence: Not At Risk (11/03/2023) Received from [facility] Humiliation, Afraid, Rape, and Kick questionnaire Fear of Current or Ex-Partner: No Emotionally Abused: No Physically Abused: No Sexually Abused: No Housing Stability: Low Risk (11/03/2023) Received from [facility] Housing Stability Vital Sign Unable to Pay for Housing in the Last Year: No Number of Places Lived in the Last Year: 2 Unstable Housing in the Last Year: No On 08/30/2024, I personally saw and examined the patient today. I was involved in the management and agree with the history, examination and medical decision making noted and documented and agree with the plan of care. MD Ruddy Gonzalez MD 08/30/24 3311 Pt presents to the ED with right ear pain. Pt states that she has been under treatment for lyme disease and right ear infection. NAD, A&Ox4, GCS15, Respirations even and unlabored. documented in this encounter [facility] 08-30-2024 Hospital Discharge instructions SHAREE Early - 08/30/2024 8:23 PM EST ENT final recommendations: 10 days of corticosporin drops to right ear (in room with patient) 4 drops to the right ear three times a day. Outpatient followup with one of our otology QUINN. A referral has been placed, may call for an appointment in next 1 to 2 weeks. Outpatient referral to vestibular therapy for Benign Paroxsymal Postural Vertigo. The following attachments cannot be sent through Care Everywhere.Otitis Externa ([place])BPPV (Benign Paroxysmal Positional Vertigo) ([place] Citizen)documented in this encounter [facility] 08-30-2024 Physician Emergency department Note Front End Update Note Chief Complaint Patient presents with Ear Pain HPI Georgia Ochoa is a 68 y/o female with a past medical history of multiple times of lyme disease/PICC line and right ear pain. She has been on three rounds of antibiotic therapy. Initial physical exam and medical history performed by ED Attending. Past Medical History: Diagnosis Date Hx of Lyme disease reports episodes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 the signed document is needed this morning to proceed with [facility] services. 04/15/24 10:18: Faxed F2F document received. Updated Staff Message sent. Transcribed home health order. documented in this encounter [facility] 03-28-2024 History of Present illness Narrative Call placed to BALDOMERO Lucero's office at [phone] regarding prior referral attempt with IV ATB for patient that has been pending since 03/02/24- advised that despite multiple attempts with coordination [facility] needs to close pending referral / paperwork out due to [facility] being unable to proceed with referral at this time. Callback to [facility] intake given ([phone] for any questions / concerns--this RN advised that once patient has her line date scheduled our office would be able to re-take on any paperwork within a 14 day period to re-proceed with a referral / her needs at that time. Referral and paperwork closed at this time. (Prior attempts with office / referral enclosed below) No port placement noted in [facility], spoke with Jesus who said placement is pending - will contact us once scheduled 03/23/2024 1:41 PM Tati Potter no update on Port placement 03/24/2024 12:34 PM Tati Potter Patient called in and asked where the process is for port placement. States she called MD office and they did not give her an answer. Is very upset. Instructed that Intake has called and lvm for update. She is going to call MD office again. Call from [facility] with Dr. Krys Lucero, [place] office confirming the patient will need to [facility] infusion pharmacy, and the pt significant other will be the teachable caregiver. PICC line will be scheduled once they have an accepting pharmacy and home care agency. Call back number is [phone] option : 3 Call placed to [phone] Ruben Lucero NP office and left a voicemail requesting a call back for an update. Attempted to call [facility] Krys Lucero's office ([phone]) regarding referral. Left detailed voicemail with intake dept phone number. Received call back from Maribel stating she is awaiting response from [facility] on if able to accept patient. She states once she gets confirmation she will be able to move forward with referral. She states patient will need Port placed prior to SOC and needs pharmacy confirmed prior to scheduling. She states she will keep Intake updated. Explained patient has not been officially accepted yet due to pharmacy issues and awaiting confirmation of teachable care team assistant. She states understanding and will update Intake once she speaks with patient. Intake to continue to monitor. 03/02/24 [facility] received a rightfax from [facility] [phone] with attached scripts for IV antibiotics and PICC care with note stating patient has been on oral antibiotics since Oct and they are trying to get a home health agency to do IV antibiotics for chronic Lyme disease, per paperwork appears [facility] may be involved with IV antibiotics. I called number above to request more information such as follow provider, pharmacy and TCG, left VM with intake number for callback. Sent distribution message to team for benefits and notification to see if [facility] could accept. documented in this encounter [facility] 03-21-2024 History of Present illness Narrative Patient called in and asked where the process is for port placement. States she called MD office and they did not give her an answer. Is very upset. Instructed that Intake has called and lvm for update. She is going to call MD office again. Call from Jesus with Dr. Krys Lucero NP office confirming the patient will need to [facility] infusion pharmacy, and the pt significant other will be the teachable caregiver. PICC line will be scheduled once they have an accepting pharmacy and home care agency. Call back number is [phone] option : 3 Call placed to [phone] Ruben Lucero NP office and left a voicemail requesting a call back for an update. Attempted to call [employer] Krys Lucero's office ([phone]) regarding referral. Left detailed voicemail with intake dept phone number. Received call back from Maribel stating she is awaiting response from [facility] on if able to accept patient. She states once she gets confirmation she will be able to move forward with referral. She states patient will need Port placed prior to SOC and needs pharmacy confirmed prior to scheduling. She states she will keep Intake updated. Explained patient has not been officially accepted yet due to pharmacy issues and awaiting confirmation of teachable care team assistant. She states understanding and will update Intake once she speaks with patient. Intake to continue to monitor. 03/02/24 [facility] received a rightfax from [facility] [phone] with attached scripts for IV antibiotics and PICC care with note stating patient has been on oral antibiotics since Oct and they are trying to get a home health agency to do IV antibiotics for chronic Lyme disease, per paperwork appears [facility] may be involved with IV antibiotics. I called number above to request more information such as follow provider, pharmacy and TCG, left VM with intake number for callback. Sent distribution message to team for benefits and notification to see if [facility] could accept. documented in this encounter [facility] 03-08-2024 History of Present illness Narrative Call from [facility] with Dr. Krys Lucero, PRIYANKA office confirming the patient will need to [facility] pharmacy, and the pt significant other will be the teachable caregiver. PICC line will be scheduled once they have an accepting pharmacy and home care agency. Call back number is [phone] option : 3 Call placed to [phone] Ruben Lucero NP office and left a voicemail requesting a call back for an update. Attempted to call [employer] Krys Lucero's office ([phone]) regarding referral. Left detailed voicemail with intake dept phone number. Received call back from Maribel stating she is awaiting response from [facility] on if able to accept patient. She states once she gets confirmation she will be able to move forward with referral. She states patient will need Port placed prior to SOC and needs pharmacy confirmed prior to scheduling. She states she will keep Intake updated. Explained patient has not been officially accepted yet due to pharmacy issues and awaiting confirmation of teachable care team assistant. She states understanding and will update Intake once she speaks with patient. Intake to continue to monitor. 03/02/24 [facility] received a rightfax from [facility] [phone] with attached scripts for IV antibiotics and PICC care with note stating patient has been on oral antibiotics since Oct and they are trying to get a home health agency to do IV antibiotics for chronic Lyme disease, per paperwork appears [facility] may be involved with IV antibiotics. I called number above to request more information such as follow provider, pharmacy and TCG, left VM with intake number for callback. Sent distribution message to team for benefits and notification to see if [facility] could accept. documented in this encounter [facility] 03-08-2024 History of Present illness Narrative Call placed to [phone] Ruben Lucero NP office and left a voicemail requesting a call back for an update. Attempted to call [employer] Krys Lucero's office ([phone]) regarding referral. Left detailed voicemail with intake dept phone number. Received call back from Maribel stating she is awaiting response from [facility] on if able to accept patient. She states once she gets confirmation she will be able to move forward with referral. She states patient will need Port placed prior to SOC and needs pharmacy confirmed prior to scheduling. She states she will keep Intake updated. Explained patient has not been officially accepted yet due to pharmacy issues and awaiting confirmation of teachable care team assistant. She states understanding and will update Intake once she speaks with patient. Intake to continue to monitor. 03/02/24 [facility] received a rightfax from [facility] [phone] with attached scripts for IV antibiotics and PICC care with note stating patient has been on oral antibiotics since Oct and they are trying to get a home health agency to do IV antibiotics for chronic Lyme disease, per paperwork appears [facility] may be involved with IV antibiotics. I called number above to request more information such as follow provider, pharmacy and TCG, left VM with intake number for callback. Sent distribution message to team for benefits and notification to see if [facility] could accept. documented in this encounter [facility] 03-04-2024 History of Present illness Narrative Attempted to call [employer] Krys Lucero's office ([phone]) regarding referral. Left detailed voicemail with intake dept phone number. Received call back from Maribel stating she is awaiting response from [facility] on if able to accept patient. She states once she gets confirmation she will be able to move forward with referral. She states patient will need Port placed prior to SOC and needs pharmacy confirmed prior to scheduling. She states she will keep Intake updated. Explained patient has not been officially accepted yet due to pharmacy issues and awaiting confirmation of teachable care team assistant. She states understanding and will update Intake once she speaks with patient. Intake to continue to monitor. 03/02/24 [facility] received a rightfax from [facility] [phone] with attached scripts for IV antibiotics and PICC care with note stating patient has been on oral antibiotics since Oct and they are trying to get a home health agency to do IV antibiotics for chronic Lyme disease, per paperwork appears [facility] may be involved with IV antibiotics. I called number above to request more information such as follow provider, pharmacy and TCG, left with intake number for callback. Sent distribution message to team for benefits and notification to see if [facility] could accept. documented in this encounter [facility] 03-02-2024 History of Present illness Narrative 03/02/24 [facility] received a rightfax from [facility] [phone] with attached scripts for IV antibiotics and PICC care with note stating patient has been on oral antibiotics since Oct and they are trying to get a home health agency to do IV antibiotics for chronic Lyme disease, per paperwork appears [facility] may be involved with IV antibiotics. I called number above to request more information such as follow provider, pharmacy and TCG, left VM with intake number for callback. Sent distribution message to team for benefits and notification to see if [facility] could accept. documented in this encounter [facility] 02-15-2024 Instructions Sai Marie MD - 02/15/2024 2:34 PM EDT Your cognitive examination showed many strengths. There were, however, some relative weaknesses in executive function (organization and multitasking) and memory (encoding). The brain MRI shows no strokes, tumors, or cysts. There was no significant shrinkage or atrophy. There is evidence of moderate small vessel cerebrovascular burden. Based on the history, examination, and imaging, my concern for an underlying neurodegenerative disease is fairly low at this time. Lyme testing to-date (blood and CSF) has been normal/negative, at least through [facility]. I suspect that other factors, such as vascular disease in the brain and mood, may be contributory. Psychiatry referral. Continue with primary care follow-up for vascular risk factor control. Recommend Mediterranean diet, exercise, and social engagement. The Mediterranean diet is one of the healthy eating plans recommended by the Dietary Guidelines for Americans to promote health and prevent chronic disease. It is also recognized by the World Health Organization as a healthy and sustainable dietary pattern and as an intangible cultural asset by the United National Educational, Scientific and Cultural Organization. The Mediterranean diet is a way of eating based on the traditional cuisine of countries bordering the [place] Sea. While there is no single definition of the Mediterranean diet, it is typically high in vegetables, fruits, whole grains, beans, nut and seeds, and olive oil. The main components of Mediterranean diet include: --Daily consumption of vegetables, fruits, whole grains and healthy fats --Weekly intake of fish, poultry, beans and eggs --Moderate portions of dairy products --Limited intake of red meat Other important elements of the Mediterranean diet are sharing meals with family and friends, enjoying a glass of red wine and being physically active. The foundation of the Mediterranean diet is vegetables, fruits, herbs, nuts, beans and whole grains. Meals are built around these plant-based foods. Moderate amounts of dairy, poultry and eggs are also central to the Mediterranean Diet, as is seafood. In contrast, red meat is eaten only occasionally. Healthy fats are a mainstay of the Mediterranean diet. They're eaten instead of less healthy fats, such as saturated and trans fats, which contribute to heart disease. Russell oil is the primary source of added fat in the Mediterranean diet. Russell oil provides monounsaturated fat, which has been found to lower total cholesterol and low-density lipoprotein (LDL or bad) cholesterol levels. Nuts and seeds also contain monounsaturated fat. Fish are also important in the Mediterranean diet. Fatty fish -- such as mackerel, todd, sardines, albacore tuna, salmon and wallace trout -- are rich in omega-3 fatty acids, a type of polyunsaturated fat that may reduce inflammation in the body. [place]-3 fatty acids also help decrease triglycerides, reduce blood clotting, and decrease the risk of stroke and heart failure. The Mediterranean diet typically allows red wine in moderation. Although alcohol has been associated with a reduced risk of heart disease in some studies, it's by no means risk free. The Dietary Guidelines for Americans caution against beginning to drink or drinking more often on the basis of potential health benefits. Interested in trying the Mediterranean diet? These tips will help you get started: --Eat more fruits and vegetables. Aim for 7 to 10 servings a day of fruit and vegetables. --Opt for whole grains. Switch to whole-grain bread, cereal and pasta. [place] with other whole grains, such as bulgur and farro. --Use healthy fats. Try olive oil as a replacement for butter when cooking. Instead of putting butter or margarine on bread, try dipping it in flavored olive oil. --Eat more seafood. Eat fish twice a week. Fresh or water-packed tuna, salmon, trout, mackerel and todd are healthy choices. Grilled fish tastes good and requires little cleanup. Avoid deep-fried fish. --Reduce red meat. Substitute fish, poultry or beans for meat. If you eat meat, make sure it's lean and keep portions small. --Enjoy some dairy. Eat low-fat Colombian or plain yogurt and small amounts of a variety of cheeses. --Spice it up. Herbs and spices boost flavor and lessen the need for salt. The Mediterranean diet is a delicious and healthy way to eat. Many people who switch to this style of eating say they'll never eat any other way. No follow-up scheduled. Return as needed if cognitive symptoms progress over time. documented in this encounter [facility] 02-15-2024 Note Neurocognitive Clini c Consultative Evaluation Patient: Georgia Ochoa : 1955 Date of Service: 02/15/2024 Referring Clinician: Francine Alvarez CNP Reason for Referral: Memory loss History of Present Illness: Georgia Ochoa is a 68-year-old sinistral woman who presents with at least six months of cognitive symptoms. She is accompanied by her partner, Justice, who serves as collateral informant today. She states, I'm devastated, relating her present symptoms to possible Lyme disease. In June, she reportedly sustained a tick bite and subsequently noticed a purple rash. In September, she suffered slurred speech, which she also attributes to Lyme. Ms. Ochoa states that she has difficulty processing the mail, difficulty cooking, and difficulty with time relationships. Short term memory impairments are described. Ms. Ochoa also suspects she may be suffering from babesiosis and bartonellosis. Records indicate she was concerned about Lyme disease in 1990 and 1995. Repeated Lyme titers (blood and CSF) and Western Blot (CSF) have been negative. Her significant other rates her cognition as good. Functionally, there is no clear evidence of decline. She drives without issue. She sees to her own finances but endorses omse difficulty staying on top of her bills. Medications remain independently overseen. Ms. Ochoa describes her mood as irritable and low. She relates this to her history of Lyme and associated symptoms. She was prescribed citalopram and quetiapine but these were self-discontinued. Sleep is inconsistent. There is occasional somniloquy but no history of dream enactment. Review of systems: GEN: Negative for fever or chills. HEENT: Negative for headache or sore throat. Skin: Negative for lesions, rashes, sores. Heart: Negative for orthopnea, angina, palpitation. Pulm: Negative for cough or SOB. GI: Negative for N/V/D/C. : Negative for incontinence. Neuro: As above. MS: Negative for ROM limitations or arthralgias. Endo: Negative for heat/cold intolerance, polyuria, or polydipsia. Ext: Negative for claudication or edema. Psych: As above. Past Medical History: Diagnosis Date Asthma Babesiosis Depression Fuchs endothelial corneal dystrophy type 1 Gall stones Heart valve disease mvp Infection, bartonella Lyme disease Nephrolithiasis Outpatient Medications Marked as Taking for the 02/15/24 encounter (Office Visit) with Sai Marie MD Medication Sig Dispense Refill AZITHROMYCIN ORAL Take 1 tablet by mouth daily . CEPHALEXIN ORAL Take 1 tablet by mouth daily . EPINEPHrine (EPIPEN) 0.3 mg/0.3 mL AtIn USE DIRECTED NEEDED FOR ALLERGIC REACTION Allergies Allergen Reactions Aspirin Shortness Of Breath Doxycycline Shortness Of Breath, Itching, Swelling and Rash Oral and IV Bactrim [Sulfamethoxazole-Trimethoprim] Hives Ciprofloxacin Hives dizziness Family History: There is no known family history of neurodegenerative disease or neuropsychiatric illness. Social/Developmental History: Ms. Ochoa was born and raised in [place]. There is no known developmental history of learning disability or special education. She holds a Master's Degree from [employer] and a Bachelor's degree from [employer]. 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 She presently resides alone. She has no children and is never-. Vital Signs: The blood pressure was 127/86 and the pulse was 85. Behavioral Examination: Well-comported and well-related. There was moderate evidence of motor-mental slowing. She was tearful at times. No evidence of perceptual disturbances, delusional phenomena, or Schneiderian first-rank symptoms. Cognitive Screening: Mini-Mental State Examination: 29/30 Cognitive State Examination: Frontal networks: Digit span was 8 forward and 5 backward. Phonemic fluency was 15 S-words/min. Semantic fluency was 10 animals/min. On Go/No-Go, there were occasional errors of commission. Luria three-step was marked by persistent sequencing errors. Language: Speech was fluent, grammatical, and well-articulated. There was no evidence of speech apraxia. There were no paraphasias. Single-word comprehension was intact. Repetition was intact. On short form BNT, 15/15 items were named correctly. Limb and orobuccal praxes were preserved. Episodic memory: On CERAD Word List Memory, the patient demonstrated a flat learning curve (5/10, 7/10, 6/10). On delayed recall, 3/10 items were given. Presented with an array, 8/10 items were recognized and no false-positives were endorsed. Visuospatial: On the Big-A/Little-A test of simultanagnosia, there were no impairments. Poppelreuter Overlapping Figures Test was completed without issue. Face-object recognition: Intact to famous faces. Elemental Examination: Cranial nerves: Visual zhao were full with no extinction. Pupils were symmetric, 3 (more content not included)... [facility] 02-15-2024 History of Present illness Narrative Neurocognitive Clinic Consultative Evaluation Patient: Georgia Ochoa : 1955 Date of Service: 02/15/2024 Referring Clinician: Francine Alvarez CNP Reason for Referral: Memory loss History of Present Illness: Georgia Ochoa is a 68-year-old sinistral woman who presents with at least six months of cognitive symptoms. She is accompanied by her partner, Justice, who serves as collateral informant today. She states, I'm devastated, relating her present symptoms to possible Lyme disease. In June, she reportedly sustained a tick bite and subsequently noticed a purple rash. In September, she suffered slurred speech, which she also attributes to Lyme. Ms. Ochoa states that she has difficulty processing the mail, difficulty cooking, and difficulty with time relationships. Short term memory impairments are described. Ms. Ochoa also suspects she may be suffering from babesiosis and bartonellosis. Records indicate she was concerned about Lyme disease in 1990 and 1995. Repeated Lyme titers (blood and CSF) and Western Blot (CSF) have been negative. Her significant other rates her cognition as good. Functionally, there is no clear evidence of decline. She drives without issue. She sees to her own finances but endorses omse difficulty staying on top of her bills. Medications remain independently overseen. Ms. Ochoa describes her mood as irritable and low. She relates this to her history of Lyme and associated symptoms. She was prescribed citalopram and quetiapine but these were self-discontinued. Sleep is inconsistent. There is occasional somniloquy but no history of dream enactment. Review of systems: GEN: Negative for fever or chills. HEENT: Negative for headache or sore throat. Skin: Negative for lesions, rashes, sores. Heart: Negative for orthopnea, angina, palpitation. Pulm: Negative for cough or SOB. GI: Negative for N/V/D/C. : Negative for incontinence. Neuro: As above. MS: Negative for ROM limitations or arthralgias. Endo: Negative for heat/cold intolerance, polyuria, or polydipsia. Ext: Negative for claudication or edema. Psych: As above. Past Medical History: Diagnosis Date Asthma Babesiosis Depression Fuchs endothelial corneal dystrophy type 1 Gall stones Heart valve disease mvp Infection, bartonella Lyme disease Nephrolithiasis Outpatient Medications Marked as Taking for the 02/15/24 encounter (Office Visit) with Sai Marie MD Medication Sig Dispense Refill AZITHROMYCIN ORAL Take 1 tablet by mouth daily . CEPHALEXIN ORAL Take 1 tablet by mouth daily . EPINEPHrine (EPIPEN) 0.3 mg/0.3 mL AtIn USE DIRECTED NEEDED FOR ALLERGIC REACTION Allergies Allergen Reactions Aspirin Shortness Of Breath Doxycycline Shortness Of Breath, Itching, Swelling and Rash Oral and IV Bactrim [Sulfamethoxazole-Trimethoprim] Hives Ciprofloxacin Hives dizziness Family History: There is no known family history of neurodegenerative disease or neuropsychiatric illness. Social/Developmental History: Ms. Ochoa was born and raised in [place]. There is no known developmental history of learning disability or special education. She holds a Master's Degree from [employer] and a Bachelor's degree from [employer]. 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 She presently resides alone. She has no children and is never-. Vital Signs: The blood pressure was 127/86 and the pulse was 85. Behavioral Examination: Well-comported and well-related. There was moderate evidence of motor-mental slowing. She was tearful at times. No evidence of perceptual disturbances, delusional phenomena, or Schneiderian first-rank symptoms. Cognitive Screening: Mini-Mental State Examination: Cognitive State Examination: Frontal networks: Digit span was 8 forward and 5 backward. Phonemic fluency was 15 S-words/min. Semantic fluency was 10 animals/min. On Go/No-Go, there were occasional errors of commission. Luria three-step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 perseverating that this is an exacerbation of Lyme disease, which is has tested negative for. Patient difficult to converse with as she was very tangential. Patient did endorse some amount of visual hallucinations in recent months. Behavioral health and neurology consulted. Only reversible cause of encephalopathy noted is an asymptomatic UTI for which was treated with Macrobid. Behavioral health recommended restarting patient on Celexa and Seroquel. Neurology recommended evaluation with MRI, which did not show any signs that would suggest dementia. 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 She is currently living with a friend and reports she still has a home in [place]. She reports she has hx of lyme disease; she was perseverative in saying I cant believe I let this happen I should have went to doctor sooner. She tested negative for Lyme disease during recent hospital stay. She denies any swallowing issues, but indicated she has littel appetite. Speech was clear and intelligible; she was oriented to current time/date/situation. She would make comments like I tsering read or write ; however then she be observed reading her facebook posts outloud, was able to fill in numbers on the clock drawing, and signed her name. She stated she is unable to dress herself, friend Haris said she has been dressing herself. Speech is rambling in nature, however she was able to be redirected; she scoed 29/30 on the SLUMS-indicating WFL. She reported 911 is number for emergency, stated most of her bills are paid with auto pay. She recalled she has appt with PCP tomorrow at 1:30; appears she also has scheduled appt with neurology in December. No skilled ST services recommended; She has hx of mental health disorders and highly encourage patient to see psychiatry/mental health care provider. Communicated this with PCP. Pt/friend verbalized understanding. Narratives HOMEBOUND STATUS Criteria 1: Assistive Device(s): None Needs assistance of at least 1 to leave home Criteria 2: Patient confined to home due to limited ambulation related to weakness, unsteady gait/poor balance and poor endurance related to recent hospitalization documented in this encounter [id number] History of Present illness Narrative* Francine Alvarez CNP - 10/07/2023 1:00 PM EST 10/07/23 [place] Ochoa is a 67 y.o. female Chief Complaint Patient presents with Follow-up Patient states that she is dizzy, slurred speech, unable to drive, cannot stand easily, cannot eat or drink. States that she is trying to get an order for a PICC line for infusions HPI: Pt presents with concerns regarding her h/o Lyme disease. She was here back in Aug 2023 with c/o arthralgias, vision change, and gait impairment. These are symptoms similar to when she was Dx with Lyme disease. Her Lyme antibody test was negative in Aug. With her previous infection, she sought care from an [id number] physician at the time ([place]) She was prescribed long-term antibiotics and other therapies There are few phone notes from patient regarding the need for shelter orders labs as well as dressing changes as patient will need a PICC line placed. States the physician from [place] was going to order antibiotics however I would be responsible for the home health services etc. Patient is here to discuss these orders from the [id number] physician as well as a referral. The physician treating her currently: Sultana Moeller, DO Currently she is taking: Ceftin Amoxicillin Atovaquone Cholestyramine Itraconazole Nystatin Flagyl -- first part of aug. Faculties were coming back, states she took too much - states there were two set of instructions States there are many meds that she isn't taking b/c she isn't able to organize the medications. I have neuro deficits and crying a lot, feels way off Balance and gait issues This other provider wants to give IV ATB therapy Pt specifically mentions dementia concerns On CTA there is: IMPRESSION: 1. Mild atrophy. 2. Mild patchy low-density white matter disease and some small areas of volume loss, likely chronicsmall vessel ischemic changes. 3. Negative for acute intracranial process. 4. Negative CTA examination of the head neck for any significant stenoses or occlusive disease. MMSE = 28 Current Outpatient Medications on File Prior to Visit Medication Sig Dispense Refill amoxicillin (AMOXIL) 500 MG capsule TAKE 4 CAPSULE BY MOUTH TWICE A DAY atovaquone (MEPRON) 750 mg/5 mL suspension TAKE 5 MLS BY MOUTH TWICE A DAY cholestyramine (QUESTRAN) 4 gram powder MIX 4 GRAMS IN BEVERAGE AND DRINK TWICE DAILY itraconazole (SPORANOX) 100 mg capsule Take by mouth daily . nystatin (MYCOSTATIN) 500,000 unit tablet diclofenac sodium (Voltaren) 1 % Gel apply 2 gram topically 4 times every day to the affected area(s) No current facility-administered medications on file prior to visit. Allergies: Aspirin, Doxycycline, Bactrim [sulfamethoxazole-trimethoprim], and Ciprofloxacin Active Ambulatory Problems Diagnosis Date Noted Calculus of kidney 09/28/2014 Asthma without status asthmaticus 06/10/2014 Calculus of gallbladder without cholecystitis 12/11/2016 Resolved Ambulatory Problems Diagnosis Date Noted Acute cystitis with hematuria 03/14/2016 UTI (urinary tract infection) 03/20/[address] scan 03/20/2016 Episode of recurrent major depressive disorder ([facility]) 09/19/2016 Delusional disorder, somatic type, multiple episodes, currently in acute episode ([facility]) 09/19/2016 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 ([facility]) 12/11/2016 Otitis externa, acute 09/12/2018 Vitreous hemorrhage of both eyes ([facility]) 07/05/2021 Past Medical History: Diagnosis Date Asthma Babesiosis Depression Fuchs endothelial corneal dystrophy type 1 Gall stones Heart valve disease Infection, bartonella Lyme disease Nephrolithiasis Social History Tobacco Use Smoking status: Never Smokeless tobacco: Never Vaping Use Vaping Use: Never used Substance Use Topics Alcohol use: No Drug use: No Past Surgical History: Procedure Laterality Date CATARACT IOL PHACO CLEAR CORNEA Left 09/11/2020 Procedure: LEFT EYE CATARACT EXTRACTION WITH LENS IMPLANT WITH LRI; Surgeon: Kaylen Womack MD; Location: [facility] Main OR; Service: Ophthalmology CATARACT IOL PHACO CLEAR CORNEA Right 09/25/2020 Procedure: RIGHT EYE CATARACT EXTRACTION WITH LENS IMPLANT WITH LRI; Surgeon: Kaylen Womack MD; Location: [facility] Main OR; Service: Ophthalmology FRACTURE SURGERY KIDNEY STONE SURGERY BP 115/65 (BP Location: Left arm) Pulse (!) 111 Temp 98.3 F (36.8 C) Resp 18 Wt 89.9 kg (198 lb 3.2 oz) SpO2 94% BMI 31.99 kg/m Review of Systems Constitutional: Positive for activity change and fatigue. Negative for fever. Respiratory: Negative. Cardiovascular: Negative. Psychiatric/Behavioral: Positive for agitation and dysphoric mood. Negative for suicidal ideas. MMSE score = 28 Physical Exam Vitals and nursing note reviewed. Constitutional: General: She is not in acute distress. Appearance: Normal appearance. She is not ill-appearing, toxic-appearing or diaphoretic. HENT: Head: Normocephalic and atraumatic. Cardiovascular: Rate and Rhythm: Normal rate and regular rhythm. Heart sounds: Normal heart sounds. Pulmonary: Effort: Pulmonary effort is normal. Breath sounds: Normal breath sounds. Neurological: General: No focal deficit present. Mental Status: She is alert and oriented to person, place, and time. Cranial Nerves: No cranial nerve deficit. Motor: Weakness present. Coordination: Coordination abnormal. Gait: Gait abnormal. Psychiatric: Attention and Perception: Attention normal. Mood and Affect: Mood is anxious. Affect is flat. Behavior: Behavior is cooperative. Thought Content: Thought content normal. Cognition and Memory: Cognition is impaired. Memory is impaired. Assessment and Plan: Referrals placed to ID and neurology. Pt isn't able to find the lab results from her physician that is currently treating her for Lyme disease. States something was positive but wasn't able to recall what. Her Lyme Ab test was negativein Aug. She's had gait impairment and falls since that time as well. Went to ED in Sep secondary to speech concerns and generalized weakness - labs were at pt baseline without concerns. However, CTA shows white matter disease and small volume loss, likely chronic small vessel ischemicchanges. With her gait issues weakness and cognitive changes, I'm concern for a dementia- like illness. Pt was able to call [place] [facility] to have them fax over results. [place] was seen today for follow-up. Diagnoses and all orders for this visit: Impaired gait - Ambulatory referral to Infectious Disease; Future - Ambulatory referral to Neurology; Future History of Lyme disease - Ambulatory referral to Infectious Disease; Future - Ambulatory referral to Neurology; Future Cognitive changes - Ambulatory referral to Infectious Disease; Future - Ambulatory referral to Neurology; Future Memory loss - Ambulatory referral to Neurology; Future For any new medications prescribed today, I provided indications, potential side effects, and how to take the medication. I recommended calling the office if there are any new or worsening complaints regarding today's visit. All questions were answered. Patient care instructions and AVS provided. documented in this [id number] Instructions* Patient Instructions* Francine Alvarez CNP - 08/17/2023 11:33 AM EST Look for call from physical therapy to schedule for frequent falls and knee pains Let me know what your Lyme doctor says documented in this [id number] History of Present illness Narrative* Francine Alvarez CNP - 08/17/2023 11:00 AM EST 08/17/23 Georgia Ochoa is a 67 y.o. female Chief Complaint Patient presents with Other Pt c/o recent falls requesting handicap placard, possible tick bite on right foot in June. C/o cognitive loss x 2 weeks HPI: Pt presents with c/o recent falls. States she has bad bilateral knee arthritis. She's asking for a handicap sticker Also separate issue of possible tick bite, June. Reports some cognitive decline over the last few weeks. She did go to ED on 08/13 for second fall Reports falling and hitting right temporal area and right cheekbone CT maxillofacial: 1. No acute maxillofacial fracture. 2. Postoperative changes in the globes are shown. CT Brain/head: No acute intracranial process Follows with Dr. [facility] for her knees Injections and brace. Reports h/o lyme disease States she was possibly bit by tick in jun. She's been in remission of lyme disease for about 7 years Reports her ADLs are not able to be completed b/c cognitive decline First week in Jul, started to have FLS - more GI issues. 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 Feels like her body feels numb, and this was something she struggled with previous Lyme Vision changes Denies GUY Tinnitus Denies myalgias or arthralgias States mild anorexia No fatigue No LN swelling Cognitive decline - vision and focus is off, taste is off, no URI symptoms, sleep, reading is more difficult Current Outpatient Medications on File Prior to Visit Medication Sig Dispense Refill diclofenac sodium (Voltaren) 1 % Gel apply 2 gram topically 4 times every day to the affected area(s) No current facility-administered medications on file prior to visit. Allergies: Aspirin, Doxycycline, Bactrim [sulfamethoxazole-trimethoprim], and Ciprofloxacin Active Ambulatory Problems Diagnosis Date Noted Calculus of kidney 09/28/2014 Asthma without status asthmaticus 06/10/2014 Calculus of gallbladder without cholecystitis 12/11/2016 Resolved Ambulatory Problems Diagnosis Date Noted Acute cystitis with hematuria 03/14/2016 UTI (urinary tract infection) 03/20/[address] scan 03/20/2016 Episode of recurrent major depressive disorder ([facility]) 09/19/2016 Delusional disorder, somatic type, multiple episodes, currently in acute episode ([facility]) 09/19/2016 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 ([facility]) 12/11/2016 Otitis externa, acute 09/12/2018 Vitreous hemorrhage of both eyes ([facility]) 07/05/2021 Past Medical History: Diagnosis Date Asthma Babesiosis Depression Fuchs endothelial corneal dystrophy type 1 Gall stones Heart valve disease Infection, bartonella Lyme disease Nephrolithiasis Social History Tobacco Use Smoking status: Never Smokeless tobacco: Never Vaping Use Vaping Use: Never used Substance Use Topics Alcohol use: No Drug use: No Past Surgical History: Procedure Laterality Date CATARACT IOL PHACO CLEAR CORNEA Left 09/11/2020 Procedure: LEFT EYE CATARACT EXTRACTION WITH LENS IMPLANT WITH LRI; Surgeon: Kaylen Womack MD; Location: [facility] Main OR; Service: Ophthalmology CATARACT IOL PHACO CLEAR CORNEA Right 09/25/2020 Procedure: RIGHT EYE CATARACT EXTRACTION WITH LENS IMPLANT WITH LRI; Surgeon: Kaylen Womack MD; Location: [facility] Main OR; Service: Ophthalmology FRACTURE SURGERY KIDNEY STONE SURGERY BP 132/89 Pulse 99 Temp 97 F (36.1 C) Wt 92.7 kg (204 lb 6.4 oz) SpO2 94% BMI 32.99 kg/m Review of Systems Physical Exam Health Maintenance Topic Date Due Colorectal Cancer Screening/Monitoring Never done Dexa Scan Never done COVID-19 Vaccine (1) Never done Depression Screening (PHQ-2/9) Never done Hepatitis C Screening Never done Tetanus: Every 10yrs 09/14/2012 Mammogram 06/08/2013 Wellness Visit 11/27/2020 Falls Risk Assessment 07/30/2022 Sequential Influenza Vaccine (1) 05/15/2023 Pneumococcal Vaccine: Age 65+ Completed Zoster Vaccines Completed Assessment and Plan: Lyme disease antibody with Western blot reflex ordered Patient has an appointment via video visit with her previous doctor that treated her for Lyme disease in [place], [facility] medicine. She will do any further testing or make recommendations and patient will let me know via [employer], Inchart. With her knee issues and frequent falls, I recommend PT to help with gait impairment and knee pains. Continue to follow with Ortho and neuro for knee arthritis. Handicap placard printed today We discussed if Lyme disease testing is negative and her integrative medicine doctor feels that is not related to her Lyme disease history or possible tick bite, to return for further cognitive impairment workup, I recommended a referral neurology. I had patient complete a clock draw test which wasnormal. Patient also complained of vision changes I recommended she see ophthalmology, she declined any referral and states that she will work with the integrative medicine physician above. [place] was seen today for other. Diagnoses and all orders for this visit: Vision changes Multiple falls - Ambulatory Ref to [facility] (PT/OT/ST); Future Impaired gait - Ambulatory Ref to [facility] (PT/OT/ST); Future Primary osteoarthritis of both knees - Ambulatory Ref to [facility] (PT/OT/ST); Future - Handicap Placard History of Lyme disease - Lyme Disease IgG/IgM w/Western Blot Reflex, Blood; Future For any new medications prescribed today, I provided indications, potential side effects, and how to take the medication. I recommended calling the office if there are any new or worsening complaints regarding today's visit. All questions were answered. Patient care instructions and AVS provided. documented in this [id number] History of Present illness Narrative* Francine Alvarez CNP - 08/17/2023 11:00 AM EST 08/21/23 [place] Ochoa is a 67 y.o. female Chief Complaint Patient presents with Other Pt c/o recent falls requesting handicap placard, possible tick bite on right foot in June. C/o cognitive loss x 2 weeks HPI: Pt presents with c/o recent falls. States she has bad bilateral knee arthritis. She's asking for a handicap sticker Also separate issue of possible tick bite, June. Reports some cognitive decline over the last few weeks. She did go to ED on 08/13 for second fall Reports falling and hitting right temporal area and right cheekbone CT maxillofacial: 1. No acute maxillofacial fracture. 2. Postoperative changes in the globes are shown. CT Brain/head: No acute intracranial process Follows with Dr. Rubio [facility] for her knees Injections and brace. Reports h/o lyme disease States she was possibly bit by tick in jun. She's been in remission of lyme disease for about 7 years Reports her ADLs are not able to be completed b/c cognitive decline First week in Nov, started to have FLS - more GI issues. 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 Feels like her body feels numb, and this was something she struggled with previous Lyme Vision changes Denies GUY Tinnitus Denies myalgias or arthralgias States mild anorexia No fatigue No LN swelling Cognitive decline - vision and focus is off, taste is off, no URI symptoms, sleep, reading is more difficult Current Outpatient Medications on File Prior to Visit Medication Sig Dispense Refill diclofenac sodium (Voltaren) 1 % Gel apply 2 gram topically 4 times every day to the affected area(s) No current facility-administered medications on file prior to visit. Allergies: Aspirin, Doxycycline, Bactrim [sulfamethoxazole-trimethoprim], and Ciprofloxacin Active Ambulatory Problems Diagnosis Date Noted Calculus of kidney 09/28/2014 Asthma without status asthmaticus 06/10/2014 Calculus of gallbladder without cholecystitis 12/11/2016 Resolved Ambulatory Problems Diagnosis Date Noted Acute cystitis with hematuria 03/14/2016 UTI (urinary tract infection) 03/20/[address] scan 03/20/2016 Episode of recurrent major depressive disorder ([facility]) 09/19/2016 Delusional disorder, somatic type, multiple episodes, currently in acute episode ([facility]) 09/19/2016 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 ([facility]) 12/11/2016 Otitis externa, acute 09/12/2018 Vitreous hemorrhage of both eyes ([facility]) 07/05/2021 Past Medical History: Diagnosis Date Asthma Babesiosis Depression Fuchs endothelial corneal dystrophy type 1 Gall stones Heart valve disease Infection, bartonella Lyme disease Nephrolithiasis Social History Tobacco Use Smoking status: Never Smokeless tobacco: Never Vaping Use Vaping Use: Never used Substance Use Topics Alcohol use: No Drug use: No Past Surgical History: Procedure Laterality Date CATARACT IOL PHACO CLEAR CORNEA Left 09/11/2020 Procedure: LEFT EYE CATARACT EXTRACTION WITH LENS IMPLANT WITH LRI; Surgeon: Kaylen Womack MD; Location: [facility] Main OR; Service: Ophthalmology CATARACT IOL PHACO CLEAR CORNEA Right 09/25/2020 Procedure: RIGHT EYE CATARACT EXTRACTION WITH LENS IMPLANT WITH LRI; Surgeon: Kaylen Womack MD; Location: [facility] Main OR; Service: Ophthalmology FRACTURE SURGERY KIDNEY STONE SURGERY BP 132/89 Pulse 99 Temp 97 F (36.1 C) Wt 92.7 kg (204 lb 6.4 oz) SpO2 94% BMI 32.99 kg/m Review of Systems Constitutional: Positive for fatigue. HENT: Positive for tinnitus. Eyes: Positive for visual disturbance. Respiratory: Negative. Cardiovascular: Negative. Gastrointestinal: Positive for nausea. Musculoskeletal: Negative for arthralgias and myalgias. Neurological: Positive for numbness. Physical Exam Vitals and nursing note reviewed. Constitutional: Appearance: Normal appearance. HENT: Head: Atraumatic. Cardiovascular: Rate and Rhythm: Normal rate. Pulmonary: Effort: Pulmonary effort is normal. Neurological: Mental Status: She is alert and oriented to person, place, and time. Health Maintenance Topic Date Due Colorectal Cancer Screening/Monitoring Never done Dexa Scan Never done COVID-19 Vaccine (1) Never done Depression Screening (PHQ-2/9) Never done Hepatitis C Screening Never done Tetanus: Every 10yrs 09/14/2012 Mammogram 06/08/2013 Wellness Visit 11/27/2020 Falls Risk Assessment 07/30/2022 Sequential Influenza Vaccine (1) 05/15/2023 Pneumococcal Vaccine: Age 65+ Completed Zoster Vaccines Completed Assessment and Plan: Lyme disease antibody with Western blot reflex ordered Patient has an appointment via video visit with her previous doctor that treated her for Lyme disease in [place], [facility] medicine. She will do any further testing or make recommendations and patient will let me know via MyChart. With her knee issues and frequent falls, I recommend PT to help with gait impairment and knee pains. Continue to follow with Ortho and neuro for knee arthritis. Handicap placard printed today We discussed if Lyme disease testing is negative and her integrative medicine doctor feels that is not related to her Lyme disease history or possible tick bite, to return for further cognitive impairment workup, I recommended a referral neurology. I had patient complete a clock draw test which wasnormal. Patient also complained of vision changes I recommended she see ophthalmology, she declined any referral and states that she will work with the integrative medicine physician above. [place] was seen today for other. Diagnoses and all orders for this visit: Vision changes Multiple falls - Ambulatory Ref to [facility] (PT/OT/ST); Future Impaired gait - Ambulatory Ref to [facility] (PT/OT/ST); Future Primary osteoarthritis of both knees - Ambulatory Ref to [facility] (PT/OT/ST); Future - Handicap Placard History of Lyme disease - Lyme Disease IgG/IgM w/Western Blot Reflex, Blood; Future For any new medications prescribed today, I provided indications, potential side effects, and how to take the medication. I recommended calling the office if there are any new or worsening complaints regarding today's visit. All questions were answered. Patient care instructions and AVS provided. documented in this [id number] History of Present illness Narrative* Encounter Date Complaint History Of Soha nt Illness New Problem Left Knee Pain The radhika flynn is a pleasant 67-year-old female presenting today in the office for evaluation of her left knee pain. Patient reports constant pain in her left knee. Most of her pain is in the medial and anterior aspect of her left knee. She states that she has sustained a fall on 04/05/2023 where she landed directly on her knees. She did have some pain since then but it was not severe. She again sustained a fall on 06/25/2023 which triggered her left knee pain symptoms and since then she has had persistent pain in her left knee. She complains of pain with weight bearing, difficulty walking, severe instability and limited ROM in her left knee. She states that she is unable to complete simple chores around the house and would like to get this evaluated. Patient denies any recent injury or fall, fever, chills, numbness and tingling. [facility] Work Phone: [phone] History of Present illness Narrative* Vilma Zhao CNP - 11/12/2022 3:41 PM EST PATIENT NAME: [place] Ochoa [facility] [address] [facility] [id number] : 1955 DATE OF VISIT: 11/12/2022 #: [id number] PROVIDER: Vilma Zhao CNP Chief Complaint Patient presents with Urinary Tract Infection Had UTI on 10/15, took 5 days of antibiotics but states sx never went away. Thursday c/o urgency and frequency. Has been taking Pyridium. SUBJECTIVE 66 y.o. female presents Urinary Tract Infection (Had UTI on 10/15, took 5 days of antibiotics but states sx never went away. Thursday c/o urgency and frequency. Has been taking Pyridium.) Comes urgent care with complaints UTI. She states she had 1 back a month ago on October 15. She took 5 days of cefdinir, it was better. She is here with symptoms again yesterday. She thinks it never went away for the first time. Her urine culture did grow Klebsiella pneumonia. She feels she had 7 days of antibiotics and not 5. She has been to urology in the past for recurrent UTIs. Urinary Tract Infection This is a new problem. The current episode started yesterday. The problem occurs every urination. The problem has been gradually worsening. The quality of the pain is described as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 to being tired. She does not tolerate a stand for 1 min, does for 45 sec and sits. Attempts are made to encourage pt to ex, walk, stand during her talking and she complies with some attempts. HEP given declines more ex or activity today Home is very unkept, cluttered, old food sitting on counters and in trash. Pt reports that she can't believe that she living there. 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 Visit Notes Medications Assess and Instruct Home Visit No Home Care Plan Assess and Instruct Home Visit No Home Exercise Program Home Exercise Program No Interventions Intervention Associated Problem/Goal Status Variance Visit Notes Instruct Medication Management Problem:Assess and Instruct Home Visit Goal:Medications Completed pt reports no changes brings out old meds unsure of purpose of most old meds but able to identify purpose of current house if very unkept Safety Problem:Assess and Instruct Home Visit Goal:Home Care Plan Completed Assessed patient vulnerability and home safety risks: fall Equipment reviewed none Patient at risk for harm or abuse no Family members involved in safety plan for Level 2 or 3 na pt sleeping on main floor Observed pet feces on furniture and pt states how she misses her nice home that is clean Plan for Next Visit Problem:Assess and Instruct Home Visit Goal:Home Care Plan Completed Follow up education for next visit: safety, HEP Skilled intervention at next visit: vitals, ex, gait, balance Falls Problem:Assess and Instruct Home Visit Goal:Home Care Plan Scheduled Home Exercise Program Problem:Home Exercise Program Goal:Home Exercise Program Completed Pt not home upon arrival. She arrives shortly with friend Haris. Pt amb in home with hands in her pockets without AD. She reports wanting to go to her clean house but not able to live on her own. She perseverates on having Lyme Disease and can't believe this happened to her and recounts her multiple degrees and prior work. Pt requires redirection to relate to the present situation of this therapy visit to help her as she is. Pt allows for redirection and participates but tires quickly and sits. She verbalizes understanding that her brain is forgetful and not working as it use to. Pt performs -25 sec stand (vs 1 min) as she reports needing to sit. She states that she had dizziness over the weekend and thinks it is from one of her meds. Pt has her 3 medication bottles present and reports only taking these. Upon further discussion she/friend discloses that she had other meds taking recently but has stopped. Friend Haris brings a bin of several meds and many have fill dates of this year. Pt not able to recall why she stopped taking them. Pt performs gait training outside x2 with SBA on grass and gravel driveway at 140' and 75' without AD. She amb with antalgic gait and some hip weakness. Pt reports knee as reason to stop but states - not painful but causes balance diff. She rests often and performs -5 reps of standing marches, and gait training at 10 feet indoors, seated kicks x10 pt declines additional ex/act. at this point. [facility] Visit Details Visit Type -PT OASIS Dischar sebas Discipline -Physical Therapy Problems Problem Start Date Status Goals Interventions Assess and Instruct Home Visit Disciplines: Physical Therapy 11/08/2023 Active 2 goals linked to scheduled/documented interventions 4 goal interventions scheduled/documented in this visit Assess POC Synopsis Disciplines: Physical Therapy 11/08/2023 Active 1 goal linked to scheduled/documented intervention 1 goal intervention scheduled/documented in this visit Disease-Specific Rehabilitation Disciplines: Physical Therapy 11/08/2023 Active 1 goal linked to scheduled/documented intervention 1 goal intervention scheduled/documented in this visit Mobility Disciplines: Physical Therapy 11/08/2023 Active 1 goal linked to scheduled/documented intervention 1 goal intervention scheduled/documented in this visit Goals Goal Associated Problem Outcome Goal Met? Visit Notes Medications Assess and Instruct Home Visit No Home Care Plan Assess and Instruct Home Visit No Depression Assessment Assess POC Synopsis No Balance Disease-Specific Rehabilitation No Mobility Mobility No Interventions Intervention Associated Problem/Goal Status Variance Visit Notes Instruct Medication Management Problem:Assess and Instruct Home Visit Goal:Medications Completed Home Visit Med Education: Medication list reconciled. Medication profile and in-home medication list updated with appropriate changes. Discrepanices noted during home visit: none Instructed patient on dosing, purpose, and side effects. Medication education completed today on current medication(s). Patient/caregiver is able to teach back 100% of instruction. Pt's significant other reminds pt to take meds Falls Problem:Assess and Instruct Home Visit Goal:Home Care Plan Completed Clinician taught: patient 4-10 Patient IS at risk for falls (a score of 6 or greater is a predictor of future falls) and clinician instructed: proper footwear, remove clutter and throw rugs, non-slip mats in tubs/showers, keep frequently used items in reach and emergency response system and/or keep phone on you Patient/caregiver was able to demonstrate 80% via teachback Fall risk is due to clutter not balance Safety Problem:Assess and Instruct Home Visit Goal:Home Care Plan Completed Assessed patient vulnerability and home safety risks: low fall risk, pt not using AD Equipment reviewed no AD Patient at risk for harm or abuse no Family members involved in safety plan for Level 2 or 3 n/a Plan for Next Visit Problem:Assess and Instruct Home Visit Goal:Home Care Plan Completed Pt is d/c from PT today Assess and Address Symptoms of Depression Problem:Assess POC Synopsis Goal:Depression Assessment Completed Balance/Neuromuscular Re-education Problem:Disease-Specif ic Rehabilitation Goal:Balance Completed Pt demonstrates good balance to ambulate throughout home on carpeted and hard surfaces. Pt has no LOB and ambulates with good stride and pace. No SOB noted after ambulating over 150'. PT observed pt exit home (2 steps) IND while holding onto storm door for support. Pt feels she is doing fine at home Instruct Mobility Problem:Mobility Goal:Mobility Completed Pt demonstrates good balance to ambulate throughout home on carpeted and hard surfaces with no AD. Pt has no LOB and ambulates with good stride and pace. No SOB noted after ambulating over 150'. PT observed pt exit home (2 steps) IND while holding onto storm door for support. Pt feels she is doing fine at home documented in this encounter [facility]'s home Plan of care note* Visit Details Visit Type -PT OASIS Start o f Care Discipline -Physical Therapy Problems Problem Start Date Status Goals Interventions Assess and Instruct Home Visit Disciplines: Physical Therapy 11/08/2023 Active 2 goals linked to scheduled/documented interventions 4 goal interventions scheduled/documented in this visit Goals Goal Associated Problem Outcome Goal Met? Visit Notes Medications Assess and Instruct Home Visit No Home Care Plan Assess and Instruct Home Visit No Interventions Intervention Associated Problem/Goal Status Variance Visit Notes Instruct Medication Management Problem:Assess and Instruct Home Visit Goal:Medications Scheduled Falls Problem:Assess and Instruct Home Visit Goal:Home Care Plan Scheduled Safety Problem:Assess and Instruct Home Visit Goal:Home Care Plan Scheduled Plan for Next Visit Problem:Assess and Instruct Home Visit Goal:Home Care Plan Scheduled documented in this encounter [facility]'s home Plan of care note* Visit Details Visit Type -SN [facility] OASIS [facility] Discipline -Alf Problems Problem Start Date Status Goals Interventions IV Therapy Disciplines: Alf 04/16/2024 Active 1 goal linked to scheduled/documented intervention 1 goal intervention scheduled/documented in this visit Assess and Instruct Home Visit Disciplines: Alf 04/16/2024 Active 1 goal linked to scheduled/documented intervention 4 goal interventions scheduled/documented in this visit Medication Management Disciplines: Alf 04/16/2024 Active 1 goal linked to scheduled/documented intervention 1 goal intervention scheduled/documented in this visit Pain Management Disciplines: Alf 04/16/2024 Active 1 goal linked to scheduled/documented intervention 1 goal intervention scheduled/documented in this visit Goals Goal Associated Problem Outcome Goal Met? Visit Notes IV Therapy IV Therapy No Home Care Plan Assess and Instruct Home Visit No Medications Medication Management No Pain Pain Management No Interventions Intervention Associated Problem/Goal Status Variance Visit Notes IV Med Management Problem:IV Therapy Goal:IV Therapy Completed Education on proper IV administration of IV ATB provided to [place] - including verbal and written instruction and demonstration. Able to teach back via discussion and demonstration and is 50% independent on administration using proper technique including: will reqiure reteach visit on 04/17/24 - proper storage of medication - identification of right medication, patient, route, time and dose - proper set up of medication including priming IV tubing and setting proper drip rate - proper cleaning and flushing of Midline prior to and following administration of medication. - possible side effects - when to notify C, provider or 911 [place] requires additional education needs at this time. Will complete reteach visit on 04/17/24 to assess needs for education. Falls Problem:Assess and Instruct Home Visit Goal:Home Care Plan Completed Assessed [place]'s risk for falls using MAHC-10- score of 6, at risk for falls. [place] educated on universal fall precautions and reviewed environmental hazards (IV tubing, small dog) [place] denies falls or decrease in mobility. Currently does not use assisted device for ambulation. Safety Problem:Assess and Instruct Home Visit Goal:Home Care Plan Completed [place] assessed for risk of self harm and thoughts/desires of harming others, denies. Denies episodes of abuse. Equipment reviewed: midline and IV supplies including proper disposal of sharps [place] at risk for harm or abuse: No indicators present at this time. Will continue to assess and monitor during future visits. Level 1/LOW RISK Discharge Planning Problem:Assess and Instruct Home Visit Goal:Home Care Plan Completed [place] notified of discharge plan: under supervision of physician. Verbalized understanding. [place] will receive proper notification 48 hours or more of discharge. Homebound Status Criteria 1: Assistive Device(s): None Needs assistance of at least 1 to leave home Criteria 2: Patient confined to home due to unsteady gait/poor balance Type of Home: apartment Plan for Next Visit Problem:Assess and Instruct Home Visit Goal:Home Care Plan Completed [place] notified of next visit date of 04/17/24 consisting of: IV ATB Reteach, multi-system assessment. Informed visit time will be verified at later date. Verbalized understanding. Instruct Medication Management Problem:Medication Management Goal:Medications Completed Medication education and reconciliation completed 04/16/24 on home medications. Discrepancies noted during home visit: NONE Current medication list available in home via electronic record. Assessment and education on effectiveness, interactions, compliance, dosing, current/possible side effects, preparation, safe storage and when to call provider/911 provided. [place] verbalized understanding and teach back at 100%. [place] denies current side effects, reports compliance with medications. Assess Pain Characteristics and Current Pain Regimen and Instruct Methods of Pain Relief Problem:Pain Management Goal:Pain Completed Pain characteristics, effectiveness of current regimen and patient's ability to manage functional activities assessed: *See pain assessment* LOCATION 1: denies NO distress noted during visit. [place] knowledgeable on pharmacological and non-pharmacological interventions, instructed to notify HHC or provider with new or worsening pain and when to call 911. [facility] Visit Details Visit Type -SN IV PRN/On-rissa l-Billable Discipline -Alf Problems Problem Start Date Status Goals Interventions IV Therapy Disciplines: Alf 04/16/2024 Active 1 goal linked to scheduled/documented intervention 1 goal intervention scheduled/documented in this visit Assess and Instruct Home Visit Disciplines: Alf 04/16/2024 Active 1 goal linked to scheduled/documented intervention 4 goal interventions scheduled/documented in this visit Medication Management Disciplines: Alf 04/16/2024 Active 1 goal linked to scheduled/documented intervention 1 goal intervention scheduled/documented in this visit Pain Management Disciplines: Alf 04/16/2024 Active 1 goal linked to scheduled/documented intervention 1 goal intervention scheduled/documented in this visit Goals Goal Associated Problem Outcome Goal Met? Visit Notes IV Therapy IV Therapy No Home Care Plan Assess and Instruct Home Visit No Medications Medication Management No Pain Pain Management No Interventions Intervention Associated Problem/Goal Status Variance Visit Notes IV Med Management Problem:IV Therapy Goal:IV Therapy Completed Education on proper IV administration of IV ATB provided to [place] ste[place] - including verbal and written instruction and demonstration. Able to teach back via discussion and demonstration and is 100% independent on administration using proper technique including: - proper storage of medication - identification of right medication, patient, route, time and dose - proper set up of medication including priming IV tubing and setting proper drip rate - proper cleaning and flushing of midline prior to and following administration of medication. - possible side effects - when to notify [facility], provider or 911 [place] denies additional education needs at this time and agrees to help daily. Will continue to assess needs for education. Falls Problem:Assess and Instruct Home Visit Goal:Home Care Plan Scheduled Safety Problem:Assess and Instruct Home Visit Goal:Home Care Plan Scheduled Discharge Planning Problem:Assess and Instruct Home Visit Goal:Home Care Plan Scheduled Plan for Next Visit Problem:Assess and Instruct Home Visit Goal:Home Care Plan Scheduled Instruct Medication Management Problem:Medication Management Goal:Medications Scheduled Assess Pain Characteristics and Current Pain Regimen and Instruct Methods of Pain Relief Problem:Pain Management Goal:Pain Scheduled documented in this encounter [facility]'s home Plan of care note* Visit Details [facility] Discipline -Alf Problems Problem Start Date Status Goals Interventions IV Therapy Disciplines: Alf 04/16/2024 Active 1 goal linked to scheduled/documented intervention 1 goal intervention scheduled/documented in this visit Assess and Instruct Home Visit Disciplines: Alf 04/16/2024 Active 1 goal linked to scheduled/documented intervention 4 goal interventions scheduled/documented in this visit Medication Management Disciplines: Alf 04/16/2024 Active 1 goal linked to scheduled/documented intervention 1 goal intervention scheduled/documented in this visit Pain Management Disciplines: Alf 04/16/2024 Active 1 goal linked to scheduled/documented intervention 1 goal intervention scheduled/documented in this visit Goals Goal Associated Problem Outcome Goal Met? Visit Notes IV Therapy IV Therapy No Home Care Plan Assess and Instruct Home Visit No Medications Medication Management No Pain Pain Management No Interventions Intervention Associated Problem/Goal Status Variance Visit Notes IV Med Management Problem:IV Therapy Goal:IV Therapy Completed Education on proper IV administration of IV ATB provided to [place] - including verbal and written instruction and demonstration. Able to teach back via discussion and demonstration and is 50% independent on administration using proper technique including: will reqiure reteach visit on 04/17/24 - proper storage of medication - identification of right medication, patient, route, time and dose - proper set up of medication including priming IV tubing and setting proper drip rate - proper cleaning and flushing of Midline prior to and following administration of medication. - possible side effects - when to notify [facility], provider or 911 [place] requires additional education needs at this time. Will complete reteach visit on 04/17/24 to assess needs for education. Falls Problem:Assess and Instruct Home Visit Goal:Home Care Plan Completed Assessed [place]'s risk for falls using MAHC-10- score of 6, at risk for falls. [place] educated on universal fall precautions and reviewed environmental hazards (IV tubing, small dog) [place] denies falls or decrease in mobility. Currently does not use assisted device for ambulation. Safety Problem:Assess and Instruct Home Visit Goal:Home Care Plan Completed [place] assessed for risk of self harm and thoughts/desires of harming others, denies. Denies episodes of abuse. Equipment reviewed: midline and IV supplies including proper disposal of sharps [place] at risk for harm or abuse: No indicators present at this time. Will continue to assess and monitor during future visits. Level 1/LOW RISK Discharge Planning Problem:Assess and Instruct Home Visit Goal:Home Care Plan Completed [place] notified of discharge plan: under supervision of physician. Verbalized understanding. [employer] will receive proper notification 48 hours or more of discharge. Homebound Status Criteria 1: Assistive Device(s): None Needs assistance of at least 1 to leave home Criteria 2: Patient confined to home due to unsteady gait/poor balance Type of Home: apartment Plan for Next Visit Problem:Assess and Instruct Home Visit Goal:Home Care Plan Completed [employer] notified of next visit date of 04/17/24 consisting of: IV ATB Reteach, multi-system assessment. Informed visit time will be verified at later date. Verbalized understanding. Instruct Medication Management Problem:Medication Management Goal:Medications Completed Medication education and reconciliation completed 04/16/24 on home medications. Discrepancies noted during home visit: NONE Current medication list available in home via electronic record. Assessment and education on effectiveness, interactions, compliance, dosing, current/possible side effects, preparation, safe storage and when to call provider/911 provided. [place] verbalized understanding and teach back at 100%. [place] denies current side effects, reports compliance with medications. Assess Pain Characteristics and Current Pain Regimen and Instruct Methods of Pain Relief Problem:Pain Management Goal:Pain Completed Pain characteristics, effectiveness of current regimen and patient's ability to manage functional activities assessed: *See pain assessment* LOCATION 1: denies NO distress noted during visit. [place] knowledgeable on pharmacological and non-pharmacological interventions, instructed to notify HHC or provider with new or worsening pain and when to call 911. [facility] Visit Details Visit Type -SN IV PRN/On-rissa l-Billable Discipline -Alf Problems Problem Start Date Status Goals Interventions IV Therapy Disciplines: Alf 04/16/2024 Active 1 goal linked to scheduled/documented intervention 1 goal intervention scheduled/documented in this visit Assess and Instruct Home Visit Disciplines: Alf 04/16/2024 Active 1 goal linked to scheduled/documented intervention 4 goal interventions scheduled/documented in this visit Medication Management Disciplines: Alf 04/16/2024 Active 1 goal linked to scheduled/documented intervention 1 goal intervention scheduled/documented in this visit Pain Management Disciplines: Alf 04/16/2024 Active 1 goal linked to scheduled/documented intervention 1 goal intervention scheduled/documented in this visit Goals Goal Associated Problem Outcome Goal Met? Visit Notes IV Therapy IV Therapy No Home Care Plan Assess and Instruct Home Visit No Medications Medication Management No Pain Pain Management No Interventions Intervention Associated Problem/Goal Status Variance Visit Notes IV Med Management Problem:IV Therapy Goal:IV Therapy Completed Education on proper IV administration of IV ATB provided to neighbor- including verbal and written instruction and demonstration. Able to teach back via discussion and demonstration and is 100% independent on administration using proper technique including: agrees to stop by daily at 1pm to assist if needed - proper storage of medication - identification of right medication, patient, route, time and dose - proper set up of medication including priming IV tubing and setting proper drip rate - proper cleaning and flushing of Midline prior to and following administration of medication. - possible side effects - when to notify HHC, provider or 911 [place] neighbor denies additional education needs at this time. Will continue to assess needs for education. Falls Problem:Assess and Instruct Home Visit Goal:Home Care Plan Scheduled Safety Problem:Assess and Instruct Home Visit Goal:Home Care Plan Scheduled Discharge Planning Problem:Assess and Instruct Home Visit Goal:Home Care Plan Scheduled Plan for Next Visit Problem:Assess and Instruct Home Visit Goal:Home Care Plan Scheduled Instruct Medication Management Problem:Medication Management Goal:Medications Scheduled Assess Pain Characteristics and Current Pain Regimen and Instruct Methods of Pain Relief Problem:Pain Management Goal:Pain Scheduled [facility] Visit Details Visit Type -SN IV Therapy Ro utine-Billable Discipline -Alf Problems Problem Start Date Status Goals Interventions Lab/INR Disciplines: Alf 04/16/2024 Active 1 goal linked to scheduled/documented intervention 1 goal intervention scheduled/documented in this visit IV Therapy Disciplines: Alf 04/16/2024 Active 1 goal linked to scheduled/documented intervention 2 goal interventions scheduled/documented in this visit Assess and Instruct Home Visit Disciplines: Alf 04/16/2024 Active 1 goal linked to scheduled/documented intervention 4 goal interventions scheduled/documented in this visit Medication Management Disciplines: Alf 04/16/2024 Active 1 goal linked to scheduled/documented intervention 1 goal intervention scheduled/documented in this visit Pain Management Disciplines: Alf 04/16/2024 Active 1 goal linked to scheduled/documented intervention 1 goal intervention scheduled/documented in this visit Goals Goal Associated Problem Outcome Goal Met? Visit Notes Lab Lab/INR No IV Therapy IV Therapy No Home Care Plan Assess and Instruct Home Visit No Medications Medication Management No Pain Pain Management No Interventions Intervention Associated Problem/Goal Status Variance Visit Notes Lab/Specimen Collection Problem:Lab/INR Goal:Lab Completed Lab collection for blood: CBC, CMP. May collect specimen from: Midline and Venipuncture Collection Date/Frequency: weekly. Communicate results to INTERNAL MEDICINE NURSE PRACTITIONER: Krys Lucero IV Med Management Problem:IV Therapy Goal:IV Therapy Completed Patient/Caregiver instructed on IV medication IV antibiotics with delivery method being [place]. Patient/caregiver instructed on line flushing. Attempted to teach boyfriend. He was not able to follow instructions. Attempted to teach patient and she closed her eyes and started crying. She stated she just could not do it. She stated she had a neighbor that could do it for her. Requested neighbor to be taught at next infusion Instruct IV Therapy Problem:IV Therapy Goal:IV Therapy Completed Midline dressing is clean, dry, and intact. Removed old dressing cleanly. Using sterile technique cleansed with chloraprep and alcohol. Allowed chloraprep to dry for one minute. Applied new occlusive dressing. Patient tolerated without itching or discomfort. Site is without redness, swelling, or drainage. Falls Problem:Assess and Instruct Home Visit Goal:Home Care Plan Completed Taught patient/caregiver universal fall precautions and reviewed environmental hazards. Patient states understanding. Safety Problem:Assess and Instruct Home Visit Goal:Home Care Plan Completed Assessed patient's risk of harming self and/or others, risk for receiving abuse and patient/ caregiver's knowledge of safe and effective use of equipment. No safety concerns noted during visit. Discharge Planning Problem:Assess and Instruct Home Visit Goal:Home Care Plan Completed Patient notified of discharge plan: under supervision of physician. Verbalized understanding. Patient will receive proper notification 48 hours or more of discharge. HOMEBOUND STATUS Criteria 1: Assistive Device(s): Walker Needs assistance of at least 1 to leave home Criteria 2: Patient confined to home due to unsteady gait/poor balance Plan for Next Visit Problem:Assess and Instruct Home Visit Goal:Home Care Plan Completed Instructed patient on plan for next visit. Instruct Medication Management Problem:Medication Management Goal:Medications Completed Assessed for new, high risk, changed, or discontinued medications. Assessed and instructed on medication purpose, dose, schedule, storage, preparation, drug/food interactions, and side effects. Assessed medication effectiveness and compliance/risk. Reviewed medications each visit and update patient's copy of medication list. Assessed medication(s) with patient and/or caregiver present. Educated patient/caregiver on storing medication(s) safely. Instructed patient/caregiver on when to contact provider if problems with medications occur. Assess Pain Characteristics and Current Pain Regimen and Instruct Methods of Pain Relief Problem:Pain Management Goal:Pain Completed Assessed pain characteristics, effectiveness of current pain regimen and patient's ability to manage functional activities. Instructed in pharmacological and non-pharmacological techniques to relieve pain. [facility] Visit Details Visit Type -SN IV Therapy Ro utine-Billable Discipline -Alf Problems Problem Start Date Status Goals Interventions Psychosocial Health Disciplines: Alf 04/16/2024 Active 1 goal linked to scheduled/documented intervention 1 goal intervention scheduled/documented in this visit Lab/INR Disciplines: Alf 04/16/2024 Active 1 goal linked to scheduled/documented intervention 1 goal intervention scheduled/documented in this visit IV Therapy Disciplines: Alf 04/16/2024 Active 1 goal linked to scheduled/documented intervention 1 goal intervention scheduled/documented in this visit Assess and Instruct Home Visit Disciplines: Alf 04/16/2024 Active 1 goal linked to scheduled/documented intervention 4 goal interventions scheduled/documented in this visit Medication Management Disciplines: Alf 04/16/2024 Active 1 goal linked to scheduled/documented intervention 1 goal intervention scheduled/documented in this visit Pain Management Disciplines: Alf 04/16/2024 Active 1 goal linked to scheduled/documented intervention 1 goal intervention scheduled/documented in this visit Goals Goal Associated Problem Outcome Goal Met? Visit Notes Depression Psychosocial Health No Lab Lab/INR No IV Therapy IV Therapy No Home Care Plan Assess and Instruct Home Visit No Medications Medication Management No Pain Pain Management No Interventions Intervention Associated Problem/Goal Status Variance Visit Notes Instruct Depression Problem:Psychosocia l Health Goal:Depression Completed Encouraged patient to make a to do list and cross off items when completed. Lab/Specimen Collection Problem:Lab/INR Goal:Lab Completed Lab collection for blood: CBC, CMP. May collect specimen from: Midline and Venipuncture Collection Date/Frequency: weekly. Communicate results to INTERNAL MEDICINE NURSE PRACTITIONER: Krys Lucero Instruct IV Therapy Problem:IV Therapy Goal:IV Therapy Completed Picc dressing is clean, dry, and intact. Removed old dressing and statlock cleanly. Using sterile technique cleansed with chloraprep and alcohol. Allowed chloraprep to dry for one minute. Applied new statlock with occlusive dressing. Patient tolerated without itching or discomfort. Site is without redness, swelling, or drainage. Double lumen picc was not clamped and missing one injection cap. Instructed patient and caregiver that injection caps must be kept in place at all times and both lumens must be flushed daily including clamped. Both stated understanding. Falls Problem:Assess and Instruct Home Visit Goal:Home Care Plan Completed Taught patient/caregiver universal fall precautions and reviewed environmental hazards. Patient states understanding. Safety Problem:Assess and Instruct Home Visit Goal:Home Care Plan Completed Assessed patient's risk of harming self and/or others, risk for receiving abuse and patient/ caregiver's knowledge of safe and effective use of equipment. No safety concerns noted during visit. Discharge Planning Problem:Assess and Instruct Home Visit Goal:Home Care Plan Completed Patient notified of discharge plan: under supervision of physician. Verbalized understanding. Patient will receive proper notification 48 hours or more of discharge. HOMEBOUND STATUS Criteria 1: Assistive Device(s): Walker Needs assistance of at least 1 to leave home Criteria 2: Patient confined to home due to unsteady gait/poor balance Plan for Next Visit Problem:Assess and Instruct Home Visit Goal:Home Care Plan Completed Instructed patient on plan for next visit. Instruct Medication Management Problem:Medication Management Goal:Medications Completed Assessed for new, high risk, changed, or discontinued medications. Assessed and instructed on medication purpose, dose, schedule, storage, preparation, drug/food interactions, and side effects. Assessed medication effectiveness and compliance/risk. Reviewed medications each visit and update patient's copy of medication list. Assessed medication(s) with patient and/or caregiver present. Educated patient/caregiver on storing medication(s) safely. Instructed patient/caregiver on when to contact provider if problems with medications occur. Assess Pain Characteristics and Current Pain Regimen and Instruct Methods of Pain Relief Problem:Pain Management Goal:Pain Completed Assessed pain characteristics, effectiveness of current pain regimen and patient's ability to manage functional activities. Instructed in pharmacological and non-pharmacological techniques to relieve pain. [facility] Visit Details Visit Type -[facility] OASIS Nisula t of Care Discipline -Alf Problems Problem Start Date Status Goals Interventions IV Therapy Disciplines: Alf 04/16/2024 Active 1 goal linked to scheduled/documented intervention 1 goal intervention scheduled/documented in this visit Assess and Instruct Home Visit Disciplines: Alf 04/16/2024 Active 1 goal linked to scheduled/documented intervention 4 goal interventions scheduled/documented in this visit Medication Management Disciplines: Alf 04/16/2024 Active 1 goal linked to scheduled/documented intervention 1 goal intervention scheduled/documented in this visit Pain Management Disciplines: Alf 04/16/2024 Active 1 goal linked to scheduled/documented intervention 1 goal intervention scheduled/documented in this visit Goals Goal Associated Problem Outcome Goal Met? Visit Notes IV Therapy IV Therapy No Home Care Plan Assess and Instruct Home Visit No Medications Medication Management No Pain Pain Management No Interventions Intervention Associated Problem/Goal Status Variance Visit Notes IV Med Management Problem:IV Therapy Goal:IV Therapy Completed Education on proper IV administration of IV ATB provided to [place] - including verbal and written instruction and demonstration. Able to teach back via discussion and demonstration and is 50% independent on administration using proper technique including: will reqiure reteach visit on 04/17/24 - proper storage of medication - identification of right medication, patient, route, time and dose - proper set up of medication including priming IV tubing and setting proper drip rate - proper cleaning and flushing of Midline prior to and following administration of medication. - possible side effects - when to notify [facility], provider or 911 [place] requires additional education needs at this time. Will complete reteach visit on 04/17/24 to assess needs for education. Falls Problem:Assess and Instruct Home Visit Goal:Home Care Plan Completed Assessed [place]'s risk for falls using MAHC-10- score of 6, at risk for falls. [place] educated on universal fall precautions and reviewed environmental hazards (IV tubing, small dog) [place] denies falls or decrease in mobility. Currently does not use assisted device for ambulation. Safety Problem:Assess and Instruct Home Visit Goal:Home Care Plan Completed [place] assessed for risk of self harm and thoughts/desires of harming others, denies. Denies episodes of abuse. Equipment reviewed: midline and IV supplies including proper disposal of sharps [place] at risk for harm or abuse: No indicators present at this time. Will continue to assess and monitor during future visits. Level 1/LOW RISK Discharge Planning Problem:Assess and Instruct Home Visit Goal:Home Care Plan Completed [place] notified of discharge plan: under supervision of physician. Verbalized understanding. [place] will receive proper notification 48 hours or more of discharge. Homebound Status Criteria 1: Assistive Device(s): None Needs assistance of at least 1 to leave home Criteria 2: Patient confined to home due to unsteady gait/poor balance Type of Home: apartment Plan for Next Visit Problem:Assess and Instruct Home Visit Goal:Home Care Plan Completed [place] notified of next visit date of 04/17/24 consisting of: IV ATB Reteach, multi-system assessment. Informed visit time will be verified at later date. Verbalized understanding. Instruct Medication Management Problem:Medication Management Goal:Medications Completed Medication education and reconciliation completed 04/16/24 on home medications. Discrepancies noted during home visit: NONE Current medication list available in home via electronic record. Assessment and education on effectiveness, interactions, compliance, dosing, current/possible side effects, preparation, safe storage and when to call provider/911 provided. [place] verbalized understanding and teach back at 100%. [place] denies current side effects, reports compliance with medications. Assess Pain Characteristics and Current Pain Regimen and Instruct Methods of Pain Relief Problem:Pain Management Goal:Pain Completed Pain characteristics, effectiveness of current regimen and patient's ability to manage functional activities assessed: *See pain assessment* LOCATION 1: denies NO distress noted during visit. [place] knowledgeable on pharmacological and non-pharmacological interventions, instructed to notify HHC or provider with new or worsening pain and when to call 911. [facility] Visit Details Visit Type -PT Initial Eval/ Discipline DC Discipline -Physical Therapy Problems Problem Start Date Status Goals Interventions One-Time Physical Therapy Visit Disciplines: Physical Therapy 04/28/2024 Active 1 goal linked to scheduled/documented intervention 1 goal intervention scheduled/documented in this visit Goals Goal Associated Problem Outcome Goal Met? Visit Notes One-Time Visit One-Time Physical Therapy Visit No Interventions Intervention Associated Problem/Goal Status Variance Visit Notes PT Assessment and Treat Problem:One-Time Physical Therapy Visit Goal:One-Time Visit Completed Instructed in fall precautions and recommended clear pathways and avoiding forward trunk flexion in standing. Encouraged functional gait and activities in home Discussesd services available through [facility] including housekeeping assistance and counseling services. Pt. states she is familiar with [facility] but declines any services at this time [facility] Visit Details Visit Type -OT Initial Eval/ Discipline DC Discipline -Occupational Therapy Problems Problem Start Date Status Goals Interventions One Time Occupational Therapy Visit Disciplines: Occupational Therapy 04/29/2024 Resolved on 04/29/2024 1 goal linked to scheduled/documented intervention Goals Goal Associated Problem Outcome Goal Met? Visit Notes One-Time Visit One Time Occupational Therapy Visit Completed Yes [facility] Visit Details Visit Type -SN IV Therapy [place] Discipline -Alf Problems Problem Start Date Status Goals Interventions Lab/INR Disciplines: Alf 04/16/2024 Active 1 goal linked to scheduled/documented intervention 1 goal intervention scheduled/documented in this visit IV Therapy Disciplines: Alf 04/16/2024 Active 1 goal linked to scheduled/documented intervention 1 goal intervention scheduled/documented in this visit Assess and Instruct Home Visit Disciplines: Alf 04/16/2024 Active 1 goal linked to scheduled/documented intervention 4 goal interventions scheduled/documented in this visit Medication Management Disciplines: Alf 04/16/2024 Active 1 goal linked to scheduled/documented intervention 1 goal intervention scheduled/documented in this visit Pain Management Disciplines: Alf 04/16/2024 Active 1 goal linked to scheduled/documented intervention 1 goal intervention scheduled/documented in this visit Goals Goal Associated Problem Outcome Goal Met? Visit Notes Lab Lab/INR No IV Therapy IV Therapy No Home Care Plan Assess and Instruct Home Visit No Medications Medication Management No Pain Pain Management No Interventions Intervention Associated Problem/Goal Status Variance Visit Notes Lab/Specimen Collection Problem:Lab/INR Goal:Lab Completed Lab collection for blood: CBC, CMP. May collect specimen from: Midline and Venipuncture Collection Date/Frequency: weekly. Communicate results to INTERNAL MEDICINE NURSE PRACTITIONER: Krys Lucero Instruct IV Therapy Problem:IV Therapy Goal:IV Therapy Completed Midline dressing is clean, dry, and intact. Removed old dressing cleanly. Using sterile technique cleansed with chloraprep and alcohol. Allowed chloraprep to dry for one minute. Applied new occlusive dressing. Patient tolerated without itching or discomfort. Site is without redness, swelling, or drainage. Falls Problem:Assess and Instruct Home Visit Goal:Home Care Plan Completed Taught patient/caregiver universal fall precautions and reviewed environmental hazards. Patient states understanding. Safety Problem:Assess and Instruct Home Visit Goal:Home Care Plan Completed Assessed patient's risk of harming self and/or others, risk for receiving abuse and patient/ caregiver's knowledge of safe and effective use of equipment. No safety concerns noted during visit. Discharge Planning Problem:Assess and Instruct Home Visit Goal:Home Care Plan Completed Patient notified of discharge plan: under supervision of physician. Verbalized understanding. Patient will receive proper notification 48 hours or more of discharge. HOMEBOUND STATUS Criteria 1: Assistive Device(s): None Needs assistance of at least 1 to leave home Criteria 2: Patient confined to home due to unsteady gait/poor balance Plan for Next Visit Problem:Assess and Instruct Home Visit Goal:Home Care Plan Completed Instructed patient on plan for next visit. Instruct Medication Management Problem:Medication Management Goal:Medications Completed Assessed for new, high risk, changed, or discontinued medications. Assessed and instructed on medication purpose, dose, schedule, storage, preparation, drug/food interactions, and side effects. Assessed medication effectiveness and compliance/risk. Reviewed medications each visit and update patient's copy of medication list. Assessed medication(s) with patient and/or caregiver present. Educated patient/caregiver on storing medication(s) safely. Instructed patient/caregiver on when to contact provider if problems with medications occur. Assess Pain Characteristics and Current Pain Regimen and Instruct Methods of Pain Relief Problem:Pain Management Goal:Pain Completed Assessed pain characteristics, effectiveness of current pain regimen and patient's ability to manage functional activities. Instructed in pharmacological and non-pharmacological techniques to relieve pain. [facility] Visit Details Visit Type -SN [facility] OASIS Disc harge Discipline -Alf Problems Problem Start Date Status Goals Interventions IV Therapy Disciplines: Alf 04/16/2024 Active - 1 problem intervention scheduled/documented in this visit Assess and Instruct Home Visit Disciplines: Alf 04/16/2024 Active 1 goal linked to scheduled/documented intervention 4 goal interventions scheduled/documented in this visit Medication Management Disciplines: Alf 04/16/2024 Active 1 goal linked to scheduled/documented intervention 1 goal intervention scheduled/documented in this visit Pain Management Disciplines: Alf 04/16/2024 Active 1 goal linked to scheduled/documented intervention 1 goal intervention scheduled/documented in this visit Goals Goal Associated Problem Outcome Goal Met? Visit Notes Home Care Plan Assess and Instruct Home Visit No Medications Medication Management No Pain Pain Management No Interventions Intervention Associated Problem/Goal Status Variance Visit Notes IV/Line Removal Problem:IV Therapy Scheduled Falls Problem:Assess and Instruct Home Visit Goal:Home Care Plan Scheduled Safety Problem:Assess and Instruct Home Visit Goal:Home Care Plan Scheduled Discharge Planning Problem:Assess and Instruct Home Visit Goal:Home Care Plan Scheduled Plan for Next Visit Problem:Assess and Instruct Home Visit Goal:Home Care Plan Scheduled Instruct Medication Management Problem:Medication Management Goal:Medications Scheduled Assess Pain Characteristics and Current Pain Regimen and Instruct Methods of Pain Relief Problem:Pain Management Goal:Pain Scheduled [facility] Visit Details Visit Type -SN Missed Visit Discipline -Alf Problems Problem Start Date Status Goals Interventions IV Therapy Disciplines: Alf 04/16/2024 Active - 1 problem intervention scheduled/documented in this visit Assess and Instruct Home Visit Disciplines: Alf 04/16/2024 Active 1 goal linked to scheduled/documented intervention 4 goal interventions scheduled/documented in this visit Medication Management Disciplines: Alf 04/16/2024 Active 1 goal linked to scheduled/documented intervention 1 goal intervention scheduled/documented in this visit Pain Management Disciplines: Alf 04/16/2024 Active 1 goal linked to scheduled/documented intervention 1 goal intervention scheduled/documented in this visit Goals Goal Associated Problem Outcome Goal Met? Visit Notes Home Care Plan Assess and Instruct Home Visit No Medications Medication Management No Pain Pain Management No Interventions Intervention Associated Problem/Goal Status Variance Visit Notes IV/Line Removal Problem:IV Therapy Scheduled Falls Problem:Assess and Instruct Home Visit Goal:Home Care Plan Scheduled Safety Problem:Assess and Instruct Home Visit Goal:Home Care Plan Scheduled Discharge Planning Problem:Assess and Instruct Home Visit Goal:Home Care Plan Scheduled Plan for Next Visit Problem:Assess and Instruct Home Visit Goal:Home Care Plan Scheduled Instruct Medication Management Problem:Medication Management Goal:Medications Scheduled Assess Pain Characteristics and Current Pain Regimen and Instruct Methods of Pain Relief Problem:Pain Management Goal:Pain Scheduled documented in this encounter [facility] Progress note* Actions HOMEBOUND STATUS Criteria 1: Assistive Device(s): none Needs assistance of at least 1 to leave home Criteria 2: Patient confined to home due to weakness, fall risk, gait/balance deficits Type of Home: 2 story Narratives Continue to progress toward goals until met, no longer homebound or max potential met. documented in this encounter [facility] home Progress note* Actions HOMEBOUND STATUS Criteria 1: Assistive Device(s): none Needs assistance of at least 1 to leave home Criteria 2: Patient confined to home due to weakness, fall risk, gait/balance deficits Type of Home: 2 story Narratives Continue to progress toward goals until met, no longer homebound or max potential met. documented in this encounter [facility]'s home Progress note* Actions HOMEBOUND STATUS Criteria 1: Assistive Device(s): none Needs assistance of at least 1 to leave home Criteria 2: Patient confined to home due to weakness, fall risk, gait/balance deficits Type of Home: 2 story Narratives Continue to progress toward goals until met, no longer homebound or max potential met. [facility]* Actions SOC completed, Multi-system assessment completed, Medications reconciled. Education provided on disease process monitoring and management, plan for next visit, fall precautions, infection precautions reviewed. Verbal and written instruction provided on proper administration of IV ATB. Step by step hands on teaching completed including proper storage of medication, identification of right medication, patient, route, time and dose, proper set up of medication including priming IV tubing and setting proper drip rate, proper cleaning and flushing of PICC prior to and following administration of medication, possible side effects, when to notify HHC, provider or 911. [place] able to verbally teach back proper administration 50%, will require need for reteach visit. Plan of care established and reviewed. Reviewed homecare booklet and instructed to call homecare with any questions or concerns. [facility] Actions Reteach visit completed for 24 hour IV ATB infusion. Medication teaching and assessment of medication compliance, management of disease symptoms, activity, S/S to report to physician, medical equipment and supply management, assessment and care of vascular access device completed. [place]'s neighbor able to complete all steps required for future bag changes 100% independently, no further reteach visits required at this time as neighbor states she will help. Homecare/pharmacy number reviewed and instructed to call with any questions, concerns or issues. patient requesting medication via [employer]: pharmacy notified of request [facility]* Actions SOC completed, Multi-system assessment completed, Medications reconciled. Education provided on disease process monitoring and management, plan for next visit, fall precautions, infection precautions reviewed. Verbal and written instruction provided on proper administration of IV ATB. Step by step hands on teaching completed including proper storage of medication, identification of right medication, patient, route, time and dose, proper set up of medication including priming IV tubing and setting proper drip rate, proper cleaning and flushing of PICC prior to and following administration of medication, possible side effects, when to notify HHC, provider or 911. [place] able to verbally teach back proper administration 50%, will require need for reteach visit. Plan of care established and reviewed. Reviewed homecare booklet and instructed to call homecare with any questions or concerns. [facility]* Actions Reteach visit completed for daily IV ATB. Medication teaching and assessment of medication compliance, management of disease symptoms, activity, S/S to report to physician, medical equipment and supply management, assessment and care of vascular access device completed. Neighbor able to complete all steps required for future bag changes 100% independently, no further reteach visits required at this time, neighbor agrees to stop by daily around 1 pm to assist with planting supervisor. 2 bags pre mixed and stored in fridge. Homecare/pharmacy number reviewed and instructed to call with any questions, concerns or issues. [facility]* Actions [facility] requested to go to [facility] for labs and line care. Left message for Krys Lucero CNP regarding patient feeling her life is almost over and feelings of depression. She gave me a verbal order for PT and OT. [facility]* Actions SOC completed, Multi-system assessment completed, Medications reconciled. Education provided on disease process monitoring and management, plan for next visit, fall precautions, infection precautions reviewed. Verbal and written instruction provided on proper administration of IV ATB. Step by step hands on teaching completed including proper storage of medication, identification of right medication, patient, route, time and dose, proper set up of medication including priming IV tubing and setting proper drip rate, proper cleaning and flushing of PICC prior to and following administration of medication, possible side effects, when to notify HHC, provider or 911. [place] able to verbally teach back proper administration 50%, will require need for reteach visit. Plan of care established and reviewed. Reviewed homecare booklet and instructed to call homecare with any questions or concerns. [facility]* Actions Pt. 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 Pt. tearful during PT interview freq. repeating self I can't believe I let this happen to me again Pt. expresses frustration in delay with starting IV antibiotics but states she had no previous followed recommendation for PO antiboitic therapy. Pt. most recently in [facility] 11/03-11/06/2023 with unsteady gait, weakness, joint pain and cognitive impairment. Lyme test negative in hospital but pt. did not believe test was accurate. Pt. treated for UTI and recommended to follow up with outpatient neurophysiatry. Pt. recently started on IV antiobitic therapy at home for sequele of Lyme's Disease. Pt. has a PICC line in her R antebital region Very difficult to keep pt. on task during PT assessment with pt. repeating her concerns over her Lyme's diagnosis multiple times and tearful at times. PLOF: Pt. drove, did own grocery shopping, standing to shower and indep. dressing. CLOF: Decreased standing tolerance for meal prep; easy fatigue and mental fog Pt. reports difficulty with managing bills and paperwork, mild weakness BLE; [id number] indicating fall risk; TUG = 9.3 sec without device (WNL for age) and 30 sec sit to stand= 9 reps; slightly below age norm of 10-14 which correlates to proximal hip weakness noted in eval. SHX: Lives alone in [facility] with 1 step to enter, has walk in shower but all rooms in home very cluttered with personal belongings increasing fall risk. Pt. states she has a friend in [place] that helps occassionally and a neighbor has been helping with IV antibiotic PMH: Lymes disease, depression Recommendation: Pt. does not currently met HomeBound criteria for PT. discussed services available through [facility] including housekeeping and counseling, but pt. declines at this time, Instructed in fall precautions and encouraged increased walking and limited community walking to improve activity tolerance. [facility]. No further Home PT indicated at this time but cont. Home IV nursing care for antibiotic therapy. Homebound Status Criteria 1: Assistive Device(s): None Needs no assistance to leave home Criteria 2: Patient confined to home due to other homebound reason IV antibiotic therapy via RUE PICC line Type of Home: 1-story house/ trailer, number of outside stairs: 1 PLAN: D/C Home PT following one time evaluation visit. [facility]* Actions attempted to teach patient h ow to administer infusion. She flushed saline without difficulty. When she held the IV line she froze, closed her eyes, and started crying (no tears). She kept saying she was going to from Lyme disease. She stated she was unable to fix herself any food. Her boyfriend brings her food. Her home is dirty and cluttered. RN added extensions onto lumens to assist patient with reaching lines to flush them both daily. [facility]* Actions [id number] and M1720 decline afte r spending time with [place] GOYAL found her to be unsafe with the administration of the IV antibiotic. Every interaction she would repeat the same story over and over. When she attempted to perform a saline flush she closed her eyes and started to whine and whimper, but no tears. She denied any pain. She adamantly stated she could not perform the task. A moment later she would say she could perform the task. She also stated she was not capable of fixing any food to feed herself. Her boyfriend was bringing all of her meals. She made the nurse aware that she knew she was dying from the Lyme disease and her time was limited. It was very difficult to console or find room to talk with patient. documented [facility] this encounter [facility] Clinical Note Date No Information [facility] [place] Work Phone: Reason for referral (narrative)* Reason For Referral No Information [facility] [place] Work Phone: Reason for referral (narrative)No reason for referral [facility] Reason for visit Narrative* Diagnostic X-Ray (Emergency) - New Request Specialty Diagnoses / Procedures Referred By Austyn daniels Referred To Contact Diagnoses Left foot pain Procedures XR ANKLE LEFT 3+ VIEWS Lynda Vega, REED POLISHER-INTERNAL MEDICINE NURSE PRACTITIONER [address] [place] [address] Phone: tel: fax: Referral ID Status Reason Start Date Expiration Date V isits Requested Visits Authorized [id number] New Request 01/25/2025 02/19/2026 [facility] (Emergency) - New Request Specialty Diagnoses / Procedures Referred By Austyn daniels Referred To Contact Diagnoses Left foot pain Procedures XR FOOT LEFT 3+ VIEWS Lynda Vega, REED POLISHER-INTERNAL MEDICINE NURSE PRACTITIONER [address] [place] [address] Phone: tel: fax: Referral ID Status Reason Start Date Expiration Date V isits Requested Visits Authorized [id number] New Request 01/25/2025 02/19/2026 1 1 [facility] Assessments Diagnosis Nonspecific abnormal results of liver function study Diagnosis Acute diffuse otitis externa of right ear Diagnosis Encounter for medical examination to establish care Encounter for preadmission testing Acute middle ear effusion, right Nuclear sclerotic cataract of both eyes 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 Follow up with your PCP if no improvement in 5-7 days for a recheck, sooner if symptoms worsen before then. Take prescribed medication(s) as directed. Swimmer's Ear: Care Instructions Your Care Instructions Swimmer's ear (otitis externa) is inflammation or infection of the ear canal. This is the passage that leads from the outer ear to the eardrum. Any water, sand, or other debris that gets into the earcanal and stays there can cause swimmer's ear. Putting cotton swabs or other items in the ear to clean it can also cause this problem. Swimmer's ear can be very painful. But you can treat the pain and infection with medicines. You should feel better in a few days. Follow-up care is a licea part of your treatment and safety. Be sure to make and go to all appointments, and call your doctor if you are having problems. It's also a good idea to know your test resultsand keep a list of the medicines you take. How can you care for yourself at home? Cleaning and care Use antibiotic drops as your doctor directs. Do not insert ear drops (other than the antibiotic ear drops) or anything else into the ear unless your doctor has told you to. Avoid getting water in the ear until the problem clears up. Use cotton lightly coated with petroleum jelly as an earplug. Do not use plastic earplugs. Use a founder chairman and chief creative officer set on low to carefully dry the ear after you shower. To ease ear pain, hold a warm washcloth against your ear. Take pain medicines exactly as directed. ? If the doctor gave you a prescription medicine for pain, take it as prescribed. ? If you are not taking a prescription pain medicine, ask your doctor if you can take an wqte-qsc-mlecqxh medicine. Inserting ear drops Warm the drops to body temperature by rolling the container in your hands. Or you can place it in acup of warm water for a few minutes. Lie down, with your ear facing up. Place drops inside the ear. Follow your doctor's instructions (or the directions on the label) for how many drops to use. Gently wiggle the outer ear or pull the ear up and back to help the drops getinto the ear. It's important to keep the liquid in the ear canal for 3 to 5 minutes. When should you call for help? Call your doctor now or seek immediate medical care if: You have a new or higher fever. You have new or worse pain, swelling, warmth, or redness around or behind your ear. You have new or increasing pus or blood draining from your ear. Watch closely for changes in your health, and be sure to contact your doctor if: You are not getting better after 2 days (48 hours). Where can you learn more? Log into your personal health record on https://Phone2Action.Feed.fm and enter C706 in the Education box to learn more about Swimmer's Ear: Care Instructions. Current as of: December 08, 2017 Content Version: 11.9 2121-1915 [employer]. Care instructions adapted under license by your healthcare professional. If you have questions about a medical condition or this instruction, always ask your healthcare professional. [employer] disclaims any warranty or liability for your use of this information. in this encounter* Patient Instructions* Francine Alvarez CNP - 11/28/2019 10:29 AM EDT Cataract Surgery: Before Your Surgery What is cataract surgery? Cataracts are cloudy areas in the lens of your eye. Your lens is behind the colored part of your eye (iris). Its job is to focus light onto the back of your eye. In some people, cataracts prevent light from reaching the back of the eye. This can cause vision problems. Cataract surgery helps you see better. It replaces your natural lens, which has become cloudy, witha clear artificial one. There are two types of cataract surgery. Phacoemulsification (say sfbo-cc-al-ojb-hnl-vyu-JENNA-shun) is the most common type. The doctor makes a small cut in your eye. This cut is called an incision. The doctor uses a special ultrasound tool to break your cloudy lens apart. Sometimes a laser is used too. Then he or she removes the small pieces of the lens through the incision. In most cases, the doctor then inserts an artificial lens through the incision. Most people do not need stitches, because the incision is so small. If the doctor is not able to put in an artificial lens, you can wear a contact lens or thick glasses in place ofyour natural lens. Extracapsular extraction is a less common type of cataract surgery. The doctor makes a larger incision to remove the whole lens at once. After the doctor removes the lens, he or she stitches up the incision. Recovery from this type of surgery takes longer. Before either surgery, the doctor puts numbing drops in your eye. Some doctors use a shot instead. You may also get medicine to make you feel relaxed. You probably will not feel much pain. The surgery takes about 20 to 40 minutes. After surgery, you may have a bandage or shield on your eye. You will probably go home from surgery after 1 hour in the recovery room. Most people see better in1 to 3 days. You may be able to go back to work or your normal routine in a few days. It could take3 to 10 weeks for your eye to completely heal. After your eye heals, you may still need to wear glasses, especially for reading. Follow-up care is a licea part of your treatment and safety. Be sure to make and go to all appointments, and call your doctor if you are having problems. It's also a good idea to know your test resultsand keep a list of the medicines you take. What happens before surgery? Surgery can be stressful. This information will help you understand what you can expect. And it will help you safely prepare for surgery. Preparing for surgery Understand exactly what surgery is planned, along with the risks, benefits, and other options. Tell your doctors ALL the medicines, vitamins, supplements, and herbal remedies you take. Some of these can increase the risk of bleeding or interact with anesthesia. If you take aspirin or some other blood thinner, ask your doctor if you should stop taking it before your surgery. Make sure that you understand exactly what your doctor wants you to do. These medicines increase the risk of bleeding. Your doctor will tell you which medicines to take or stop before your surgery. You may need to stoptaking certain medicines a week or more before surgery. So talk to your doctor as soon as you can. If you have an advance directive, let your doctor know. It may include a living will and a durable power of deputy prosecuting attorney for health care. Bring a copy to the hospital. If you don't have one, you may wantto prepare one. It lets your doctor and loved ones know your health care wishes. Doctors advise that everyone prepare these papers before any type of surgery or procedure. What happens on the day of surgery? Follow the instructions exactly about when to stop eating and drinking. If you don't, your surgery may be canceled. If your doctor told you to take your medicines on the day of surgery, take them with only a sip of water. Take a bath or shower before you come in for your surgery. Do not apply lotions, perfumes, deodorants, or nail filipino. Take off all jewelry and piercings. And take out contact lenses, if you wear them. At the hospital or surgery center Bring a picture ID. The area for surgery is often marked to make sure there are no errors. You will be kept comfortable and safe by your anesthesia provider. The anesthesia may make you sleep. Or it may just numb the area being worked on. The surgery will take about 20 to 40 minutes. Going home Be sure you have someone to drive you home. Anesthesia and pain medicine make it unsafe for you to drive. You will be given more specific instructions about recovering from your surgery. They will cover things like diet, wound care, follow-up care, driving, and getting back to your normal routine. You may have a bandage or patch over your eye. You may also have a clear shield over your eye. Thisprevents you from rubbing it. When should you call your doctor? You have questions or concerns. You don't understand how to prepare for your surgery. You become ill before the surgery (such as fever, flu, or a cold). You need to reschedule or have changed your mind about having the surgery. Where can you learn more? Log into your personal health record on https://Phone2Action.Feed.fm and enter K474 in the Education box to learn more about Cataract Surgery: Before Your Surgery. Current as of: January 16, 2019 Content Version: 12.3 5932-5692 [employer]. Care instructions adapted under license by your healthcare professional. If you have questions about a medical condition or this instruction, always ask your healthcare professional. [employer] disclaims any warranty or liability for your use of this information. STEADI Low Risk Patient Instructions: Your Falls Screening today shows that you are at low risk for falls. To further protect yourself from falls and maintain your independence, we recommend: 1. Read through the brochure, What You Can Do to Prevent Falls (from [facility]). 2. Go through the brochure, Check for Safety: A Home Fall Prevention Checklist for Older Adults (from [facility]), and make changes as recommended. 3. Join a community falls prevention program: ? Stepping On, a 7-week evidence based program that teaches balance exercises and fall prevention strategies ? Olivier Chi for older adults, group exercise that teaches Olivier Chi forms that reduce fall risk (weightshifting, postural alignment and control, and coordinated movements of the arms, legs, head, and trunk) ? Matter of Balance, an evidence based program designed to reduce the fear of falling and increase activity levels of older adults OR an exercise class for strength and balance. 4. Take your Vitamin D with or without Calcium, as determined by your healthcare provider. 5. Get your vision and hearing checked annually. Falls At Home Each year, thousands of older Americans fall at home. Many of them are seriously injured, and some are disabled. In 2011, nearly 23,000 people over age 65 and 2.4 million were treated in emergency departments because of falls. Falls are often due to hazards that are easy to overlook but easy to fix. This checklist will help you find and fix those hazards in your home. The checklist asks about hazards found in each room of your home. For each hazard, the checklist tells you how to fix the problem. At the end of the checklist, you ll find other tips for preventing falls. FLOORS: Look at the floor in each room. Q: When you walk through a room, do you have to walk around furniture? A. Ask someone to move the furniture so your path is clear Q: Do you have throw rugs on the floor? A. Remove the rugs or use double-sided tape or a non-slip backing so the rugs won t slip. Q: Are there papers, books, towels, shoes, magazines, boxes, blankets, or other objects on the floor? A.pile driving supervisor things that are on the floor. Always keep objects off the floor. Q: Do you have to walk over or around wires or cords (like lamp, telephone, or extension cords)? A. Coil or tape cords and wires next to the wall so you can t trip over them. If needed, have an electrician substation supervisor put in another outlet. STAIRS AND STEPS: Look at the stairs you use both inside and outside your home. Q: Are there papers, shoes, books, or other objects on the stairs? A. pile driving supervisor things on the stairs. Always keep objects off stairs. Q: Are some steps broken or uneven? A. Fix loose or uneven steps. Q: Are you missing a light over the stairway? A. Have an electrician substation supervisor put in an overhead light at the top and bottom of the stairs. Q: Do you have only one light switch for your stairs (only at the top or at the bottom of the stairs)? A. Have an electrician substation supervisor put in a light switch at the top and bottom of the stairs. You can get lightswitches that glow. Q: Has the stairway light bulb burned out? A. Have a friend or family member change the light bulb. Q: Is the carpet on the steps loose or torn? A. Make sure the carpet is firmly attached to every step, or remove the carpet and attach non-slip rubber treads to the stairs. Q: Are the handrails loose or broken? Is there a handrail on only one side of the stairs? A. Fix loose handrails or put in new ones. Make sure handrails are on both sides of the stairs and are as long as the stairs. KITCHEN: Look at your kitchen and eating area. Q: Are the things you use often on high shelves? A. Move items in your cabinets. Keep things you use often on the lower shelves (about waist level). Q: Is your step stool unsteady? A. If you must use a step stool, get one with a bar to hold on to. Never use a chair as a step stool. BATHROOMS: Look at all your bathrooms. Q: Is the tub or shower floor slippery? A. Put a non-slip rubber mat or self-stick strips on the floor of the tub or shower. Q: Do you need some support when you get in and out of the tub or up from the toilet? A. Have grab bars put in next to and inside the tub and next to the toilet. BEDROOMS: Look at all your bedrooms. Q: Is the light near the bed hard to reach? A. Place a lamp close to the bed where it s easy to reach. Q: Is the path from your bed to the bathroom dark? A. Put in a night-light so you can see where you re walking. Some night-lights go on by themselves after dark. Other Things You Can Do to Prevent Falls Do exercises that improve your balance and make your legs stronger. Exercise also helps you feel better and more confident. Have your doctor or pharmacist look at all the medicines you take, even yijx-keu-jvojwor medicines.Some medicines can make you sleepy or dizzy. Have your eyes checked by an eye doctor at least once a year and update your glasses. Get up slowly after you sit or lie down. Wear shoes both inside and outside the house. Avoid going barefoot or wearing slippers. Improve the lighting in your home. Put in brighter light bulbs. Florescent bulbs are bright and cost less to use. It s safest to have uniform lighting in a room. Add lighting to dark areas. Hang lightweight curtains or shades to reduce glare. [place] a contrasting color on the top edge of all steps so you can see the stairs better. For example, use a light color paint on dark wood. To access this brochure online, please visit the CDC website at http://www.cdc.gov/steadi/pdf/check_for_safety_brochure-a.pdf Chair Rise Exercise What it does: Strengthens the muscles in your thighs & buttocks. Goal: To do this exercise without using your hands as you become stronger. How to do it: 1. Sit toward the front of a sturdy chair with your knees bent & feet flat on the floor shoulder-width apart 2. Rest your hands lightly on the seat on either side of you, keeping your back & neck straight& and chest slightly forward. 3. Breathe in slowly. Lean forward & feel your weight on the front of your feet. 4. Breathe out and slowly stand up, using your hands as little as possible. 5. Pause for a full breath in & out. 6. Breathe in as you slowly sit down. Do not let yourself collapse back down into the chair. Rather, control your lowering as much as possible. 7. Breathe out. Repeat 10-15 times. If this number is too hard for you when you first start practicing this exercise, begin with fewer and work up to this number. Rest for a minute & then do a final set of 10-15. For detailed instructions, please visit the CDC website at http://www.cdc.gov/steadi/pdf/chair_rise_exercise-a.pdf Stepping On is an evidence based program proven to reduce falls in older adults. It is a workshop offered once a week for seven weeks. In a small-group setting, you will learn balance exercises and develop specific knowledge and skills to prevent falls. Older adults who should attend are those who: are at risk of falling who have fallen one or more times lives at home are able to walk without the help of another person Local guest experts provide information on exercise, safety, vision, and medications. Classes are offered at [facility]. To find out specifics about a class, please call [phone]. Olivier chi: Moving for Better Balance involves low impact exercise. The 12-week class is offered for three hours per week and is led by a trained paralegal instructor. It is intended for people aged 60 and older. Participants learn and perform a program of eight forms that progress from easy to more difficult. The program can accommodate persons with various physical conditions. Health Benefits of Olivier Chi: Moving for Better Balance: Improved social and mental well-being, Improved balance and physical functioning, Improved confidence in conducting daily activities, Reduced risk of falling and sustaining associated injuries, and Maintained independence and improved quality of life. To find a Olivier Chi program in your area or additional resources about fall prevention please contact: [facility] Violence and Injury Prevention Program at [phone] or [email or web address] A Matter of Balance: Managing Concerns about Falls is an evidence based program designed to reduce the fear of falling and increase activity levels of older adults. A trained continuous improvement facilitator leads 8 two-hour sessions for small groups of older adults. The class is intended for people 60 and older who are at risk of falling have a fear of falling or restrict activities who have fallen in the past are interested in improving flexibility, balance, and strength.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 Cardiovascular: Normal rate, regular rhythm and normal heart sounds. Exam reveals no friction rub. No murmur heard. Pulmonary/Chest: Effort normal and breath sounds normal. No respiratory distress. No wheezes. Abdominal: Soft. Bowel sounds are normal. exhibits no distension. There is no tenderness. Musculoskeletal: Normal range of motion. no edema or tenderness. Neurological: alert and oriented to person, place, and time. No cranial nerve deficit. Skin: Skin is warm and dry. Not diaphoretic. No erythema. Psychiatric: normal mood and affect. Behavior is normal. Vitals reviewed. For any new medications prescribed today, I provided indications, potential side effects, and how to take the medication. I recommended calling the office if there are any new or worsening complaints regarding today's visit. All questions were answered. Patient care instructions and AVS provided. documented in this encounter* Josseline Andrew MA - 12/01/2019 11:13 AM EDT Pt tolerated well. documented in this encounter* Debbie Womack PA-C - 10/26/2020 9:34 AM EST Patient Name: [facility] Location: [place] Ochoa [address] [place] [id number] Date Of : Date Of Visit: 1955 10/26/2020 MRN# Provider: [id number] Debbie Womack PA-C Chief Complaint Patient presents with Urinary Tract Infection lower back pain started about a week ago, cloudy urine Assessment & Plan 1. Urinary tract infection without hematuria, site unspecified Urine culture cefdinir (OMNICEF) 300 MG capsule 2. UTI symptoms POC Urinalysis Dipstick,[facility] No follow-ups on file. Medical Decision Making -UA consistent with uti. omnicef rx sent to pharmacy and urine sent for culture Additional Clinical Comments Educated patient and/or guardian about signs and symptoms that would warrant further immediate evaluation. Recommended that they should return to urgent care, make an appointment with their family physician, or go to the emergency room if symptoms persist or get acutely worse. Recommended follow upwithin the next week with their PCP or to get established with a PCP soon in order to follow up appropriately. Influenza Immunization Not discussed [facility] COVID-19 Mask Status: Does the patient have classic COVID-19 symptoms? No, the patient does not have COVID-19 symptoms, the patient WAS wearing a mask during the visit and I (the provider) WAS wearing a mask during the visit. Subjective 64 y.o. female presents with Urinary Tract Infection (lower back pain started about a week ago, cloudy urine) Urinary Tract Infection This is a new problem. The current episode started in the past 7 days (1 week). The problem occurs every urination. The problem has been unchanged. The pain is mild. Associated symptoms include frequency and urgency. Pertinent negatives include no hematuria, nausea or vomiting. She has tried nothing for the symptoms. Review Of Systems Review of Systems Constitutional: Negative for fever. Gastrointestinal: Negative for nausea and vomiting. Genitourinary: Positive for frequency and urgency. Negative for dysuria, hematuria and pelvic pain. Musculoskeletal: Positive for back pain. Medical History Past Medical History: Diagnosis Date Asthma Babesiosis Depression Fuchs endothelial corneal dystrophy type 1 Gall stones Heart valve disease mvp Infection, bartonella Lyme disease Nephrolithiasis Past Surgical History: Procedure Laterality Date CATARACT IOL PHACO CLEAR CORNEA Left 09/11/2020 Procedure: LEFT EYE CATARACT EXTRACTION WITH LENS IMPLANT WITH LRI; Surgeon: Kaylen Womack MD; Location: [facility] Main OR; Service: Ophthalmology CATARACT IOL PHACO CLEAR CORNEA Right 09/25/2020 Procedure: RIGHT EYE CATARACT EXTRACTION WITH LENS IMPLANT WITH LRI; Surgeon: Kaylen Womack MD; Location: [facility] Main OR; Service: Ophthalmology FRACTURE SURGERY KIDNEY STONE SURGERY Patient Active Problem List Diagnosis Calculus of kidney Asthma without status asthmaticus Episode of recurrent major depressive disorder (HCC) Calculus of gallbladder without cholecystitis Social History Social History Tobacco Use Smoking status: Never Smoker Smokeless tobacco: Never Used Substance Use Topics Alcohol use: No Drug use: No Family History Family History Problem Relation Age of Onset Hypertension Mother Heart disease Father Kidney disease Father Heart disease Maternal Uncle Objective Physical Exam BP 139/88 Pulse 78 Temp 98.3 F (36.8 C) (Tympanic) Resp 16 Wt 94.8 kg (209 lb) SpO2 97% BMI 36.44 kg/m Vision/Hearing Exam:No exam data present Physical Exam Vitals signs and nursing note reviewed. Constitutional: Appearance: Normal appearance. HENT: Head: Normocephalic and atraumatic. Cardiovascular: Rate and Rhythm: Normal rate. Pulmonary: Effort: Pulmonary effort is normal. Abdominal: Tenderness: There is no abdominal tenderness. There is no right CVA tenderness or left CVA tenderness. Neurological: Mental Status: She is alert. Procedure Notes Procedures Results Recent Results (from the past 168 hour(s)) POC Urinalysis Dipstick,Auto UC Collection Time: 10/26/20 9:27 AM Result Value Ref Range POC Color, Urine Yellow Yellow, Light Yellow, Dark Yellow Clarity, UA Clear Clear Glucose, UA Negative Normal, Negative mg/dL Bilirubin, UA Negative Negative Ketones, UA Negative Negative mg/dL Spec Grav, UA 1.025 1.005 - 1.025 Blood, UA Small (A) Negative pH, UA 5.5 5.0 - 7.0 Protein, UA Negative Negative mg/dL Urobilinogen, UA 2.0 <2.0, 0.2, Normal, Negative, 1.0, 2.0, <1.0 mg/dL Nitrite, UA Positive (A) Negative Leukocyte Esterase, UA Moderate (A) Negative No orders to display Orders Placed This Visit Orders Placed This Encounter Procedures Urine culture POC Urinalysis Dipstick,Auto UC Medication List At End Of Visit Current Outpatient Medications Medication Sig Dispense Refill cefdinir (OMNICEF) 300 MG capsule Take 1 (one) capsule (300 mg total) by mouth 2 (two) times a day for 10 days . 20 capsule 0 No current facility-administered medications for this visit. Patient Instructions Advised to drink copious water and rest. Advised to take antibiotic as directed and finish course. Follow up with PCP if symptoms persist or worsen. Urinary Tract Infection (UTI) in Women: Care Instructions Overview A urinary tract infection, or UTI, is a general term for an infection anywhere between the kidneys and the urethra (where urine comes out). Most UTIs are bladder infections. They often cause pain or burning when you urinate. UTIs are caused by bacteria and can be cured with antibiotics. Be sure to complete your treatment so that the infection does not get worse. Follow-up care is a licea part of your treatment and safety. Be sure to make and go to all appointments, and call your doctor if you are having problems. It's also a good idea to know your test resultsand keep a list of the medicines you take. How can you care for yourself at home? Take your antibiotics as directed. Do not stop taking them just because you feel better. You need to take the full course of antibiotics. Drink extra water and other fluids for the next day or two. This will help make the urine less concentrated and help wash out the bacteria that are causing the infection. (If you have kidney, heart, or liver disease and have to limit fluids, talk with your doctor before you increase the amount of fluids you drink.) Avoid drinks that are carbonated or have caffeine. They can irritate the bladder. Urinate often. Try to empty your bladder each time. To relieve pain, take a hot bath or lay a heating pad set on low over your lower belly or genital area. Never go to sleep with a heating pad in place. To prevent UTIs Drink plenty of water each day. This helps you urinate often, which clears bacteria from your system. (If you have kidney, heart, or liver disease and have to limit fluids, talk with your doctor before you increase the amount of fluids you drink.) Urinate when you need to. If you are sexually active, urinate right after you have sex. Change sanitary pads often. Avoid douches, bubble baths, feminine hygiene sprays, and other feminine hygiene products that havedeodorants. After going to the bathroom, wipe from front to back. When should you call for help? Call your doctor now or seek immediate medical care if: Symptoms such as fever, chills, nausea, or vomiting get worse or appear for the first time. You have new pain in your back just below your rib cage. This is called flank pain. There is new blood or pus in your urine. You have any problems with your antibiotic medicine. Watch closely for changes in your health, and be sure to contact your doctor if: You are not getting better after taking an antibiotic for 2 days. Your symptoms go away but then come back. Where can you learn more? Log into your personal health record on [email or web address], Inchart.Feed.fm and enter K848 in the Education box to learn more about Urinary Tract Infection (UTI) in Women: Care Instructions. Current as of: March 12, 2020 Content Version: 12.7 Pivot[employer]. Care instructions adapted under license by your healthcare professional. If you have questions about a medical condition or this instruction, always ask your healthcare professional. [employer] disclaims any warranty or liability for your use of this information. documented in this encounter* Debbie Womack PA-C - 10/26/2020 9:34 AM EST Patient Name: [facility] Location: [place] [address] [facility] [address] Date Of : Date Of Visit: 1955 10/26/2020 MRN# Provider: [id number] Debbie Womack PA-C Chief Complaint Patient presents with Urinary Tract Infection lower back pain started about a week ago, cloudy urine Assessment & Plan 1. Urinary tract infection without hematuria, site unspecified Urine culture cefdinir (OMNICEF) 300 MG capsule 2. UTI symptoms POC Urinalysis Dipstick,Auto UC No follow-ups on file. Medical Decision Making -UA consistent with uti. omnicef rx sent to pharmacy and urine sent for culture Additional Clinical Comments Educated patient and/or guardian about signs and symptoms that would warrant further immediate evaluation. Recommended that they should return to urgent care, make an appointment with their family physician, or go to the emergency room if symptoms persist or get acutely worse. Recommended follow upwithin the next week with their PCP or to get established with a PCP soon in order to follow up appropriately. Influenza Immunization Not discussed [facility] COVID-19 Mask Status: Does the patient have classic COVID-19 symptoms? No, the patient does not have COVID-19 symptoms, the patient WAS wearing a mask during the visit and I (the provider) WAS wearing a mask during the visit. Subjective 64 y.o. female presents with Urinary Tract Infection (lower back pain started about a week ago, cloudy urine) Urinary Tract Infection This is a new problem. The current episode started in the past 7 days (1 week). The problem occurs every urination. The problem has been unchanged. The pain is mild. Associated symptoms include frequency and urgency. Pertinent negatives include no hematuria, nausea or vomiting. She has tried nothing for the symptoms. Review Of Systems Review of Systems Constitutional: Negative for fever. Gastrointestinal: Negative for nausea and vomiting. Genitourinary: Positive for frequency and urgency. Negative for dysuria, hematuria and pelvic pain. Musculoskeletal: Positive for back pain. Medical History Past Medical History: Diagnosis Date Asthma Babesiosis Depression Fuchs endothelial corneal dystrophy type 1 Gall stones Heart valve disease mvp Infection, bartonella Lyme disease Nephrolithiasis Past Surgical History: Procedure Laterality Date CATARACT IOL PHACO CLEAR CORNEA Left 09/11/2020 Procedure: LEFT EYE CATARACT EXTRACTION WITH LENS IMPLANT WITH LRI; Surgeon: Kaylen Womack MD; Location: [facility] Main OR; Service: Ophthalmology CATARACT IOL PHACO CLEAR CORNEA Right 09/25/2020 Procedure: RIGHT EYE CATARACT EXTRACTION WITH LENS IMPLANT WITH LRI; Surgeon: Kaylen Womack MD; Location: [facility] Main OR; Service: Ophthalmology FRACTURE SURGERY KIDNEY STONE SURGERY Patient Active Problem List Diagnosis Calculus of kidney Asthma without status asthmaticus Episode of recurrent major depressive disorder (HCC) Calculus of gallbladder without cholecystitis Social History Social History Tobacco Use Smoking status: Never Smoker Smokeless tobacco: Never Used Substance Use Topics Alcohol use: No Drug use: No Family History Family History Problem Relation Age of Onset Hypertension Mother Heart disease Father Kidney disease Father Heart disease Maternal Uncle Objective Physical Exam BP 139/88 Pulse 78 Temp 98.3 F (36.8 C) (Tympanic) Resp 16 Wt 94.8 kg (209 lb) SpO2 97% BMI 36.44 kg/m Vision/Hearing Exam:No exam data present Physical Exam Vitals signs and nursing note reviewed. Constitutional: Appearance: Normal appearance. HENT: Head: Normocephalic and atraumatic. Cardiovascular: Rate and Rhythm: Normal rate. Pulmonary: Effort: Pulmonary effort is normal. Abdominal: Tenderness: There is no abdominal tenderness. There is no right CVA tenderness or left CVA tenderness. Neurological: Mental Status: She is alert. Procedure Notes Procedures Results Recent Results (from the past 168 hour(s)) POC Urinalysis Dipstick,Auto UC Collection Time: 10/26/20 9:27 AM Result Value Ref Range POC Color, Urine Yellow Yellow, Light Yellow, Dark Yellow Clarity, UA Clear Clear Glucose, UA Negative Normal, Negative mg/dL Bilirubin, UA Negative Negative Ketones, UA Negative Negative mg/dL Spec Grav, UA 1.025 1.005 - 1.025 Blood, UA Small (A) Negative pH, UA 5.5 5.0 - 7.0 Protein, UA Negative Negative mg/dL Urobilinogen, UA 2.0 <2.0, 0.2, Normal, Negative, 1.0, 2.0, <1.0 mg/dL Nitrite, UA Positive (A) Negative Leukocyte Esterase, UA Moderate (A) Negative No orders to display Orders Placed This Visit Orders Placed This Encounter Procedures Urine culture POC Urinalysis Dipstick,Auto UC Medication List At End Of Visit Current Outpatient Medications Medication Sig Dispense Refill cefdinir (OMNICEF) 300 MG capsule Take 1 (one) capsule (300 mg total) by mouth 2 (two) times a day for 10 days . 20 capsule 0 No current facility-administered medications for this visit. Patient Instructions Advised to drink copious water and rest. Advised to take antibiotic as directed and finish course. Follow up with PCP if symptoms persist or worsen. Urinary Tract Infection (UTI) in Women: Care Instructions Overview A urinary tract infection, or UTI, is a general term for an infection anywhere between the kidneys and the urethra (where urine comes out). Most UTIs are bladder infections. They often cause pain or burning when you urinate. UTIs are caused by bacteria and can be cured with antibiotics. Be sure to complete your treatment so that the infection does not get worse. Follow-up care is a licea part of your treatment and safety. Be sure to make and go to all appointments, and call your doctor if you are having problems. It's also a good idea to know your test resultsand keep a list of the medicines you take. How can you care for yourself at home? Take your antibiotics as directed. Do not stop taking them just because you feel better. You need to take the full course of antibiotics. Drink extra water and other fluids for the next day or two. This will help make the urine less concentrated and help wash out the bacteria that are causing the infection. (If you have kidney, heart, or liver disease and have to limit fluids, talk with your doctor before you increase the amount of fluids you drink.) Avoid drinks that are carbonated or have caffeine. They can irritate the bladder. Urinate often. Try to empty your bladder each time. To relieve pain, take a hot bath or lay a heating pad set on low over your lower belly or genital area. Never go to sleep with a heating pad in place. To prevent UTIs Drink plenty of water each day. This helps you urinate often, which clears bacteria from your system. (If you have kidney, heart, or liver disease and have to limit fluids, talk with your doctor before you increase the amount of fluids you drink.) Urinate when you need to. If you are sexually active, urinate right after you have sex. Change sanitary pads often. Avoid douches, bubble baths, feminine hygiene sprays, and other feminine hygiene products that havedeodorants. After going to the bathroom, wipe from front to back. When should you call for help? Call your doctor now or seek immediate medical care if: Symptoms such as fever, chills, nausea, or vomiting get worse or appear for the first time. You have new pain in your back just below your rib cage. This is called flank pain. There is new blood or pus in your urine. You have any problems with your antibiotic medicine. Watch closely for changes in your health, and be sure to contact your doctor if: You are not getting better after taking an antibiotic for 2 days. Your symptoms go away but then come back. Where can you learn more? Log into your personal health record on [email or web address] and enter K848 in the Education box to learn more about Urinary Tract Infection (UTI) in Women: Care Instructions. Current as of: March 12, 2020 Content Version: 12.7 Pivot3. Care instructions adapted under license by your healthcare professional. If you have questions about a medical condition or this instruction, always ask your healthcare professional. [employer] disclaims any warranty or liability for your use of this information. documented in this encounter* Sisi Costa MA - 12/03/2020 10:35 AM EDT Gave pt pneumovax vaccine and tolerated it well documented in this encounter Advance Directives No Advanced Directives Records FoundDocuments on File Type Date Recorded Patient Attendant Lodging Facilities Expl anation Advance Directives and Living Will Latest Code Status on File Code Status Date Activated Date Inactivated Comments Full Code - Unverified 12/11/2016 1:24 AM 12/11/2016 4:3 9 PM Full Code 09/18/2016 3:23 AM 09/21/2016 11:41 PM Full Code - Unverified 03/20/2016 3:16 AM 03/20/2016 9:17 PM Documents on File Type Date Recorded Patient Attendant Lodging Facilities Expl anation Advance Directives and Livin g Will 09/11/2020 8:00 AM Latest Code Status on File Code Status Date Activated Date Inactivated Comments Full Code - Unverified 12/11/2016 1:24 AM 12/11/2016 4:3 9 PM Full Code 09/18/2016 3:23 AM 09/21/2016 11:41 PM Full Code - Unverified 03/20/2016 3:16 AM 03/20/2016 9:17 PM Documents on File Type Date Recorded Patient Attendant Lodging Facilities Expl anation Advance Directives and Livin g Will 09/25/2020 8:00 AM Documents on File Type Date Recorded Patient Attendant Lodging Facilities Expl anation Advance Directives and Livin g Will 09/25/2020 8:00 AM Documents on File Type Date Recorded Patient Attendant Lodging Facilities Expl anation Advance Directives and Livin g Will 07/10/2021 10:02 AM Latest Code Status on File Code Status Date Activated Date Inactivated Comments Full Code - Unverified 12/11/2016 1:24 AM 12/11/2016 4:3 9 PM Code Status History Code Status Date Activated Date Inactivated Comments Full Code 09/18/2016 3:23 AM 09/21/2016 11:41 PM Full Code - Unverified 03/20/2016 3:16 AM 03/20/2016 9:17 PM Latest Code Status on File Code Status Date Activated Date Inactivated Comments Full Code - Unverified 12/11/2016 1:24 AM 12/11/2016 4:3 9 PM Code Status History Code Status Date Activated Date Inactivated Comments Full Code 09/18/2016 3:23 AM 09/21/2016 11:41 PM Full Code - Unverified 03/20/2016 3:16 AM 03/20/2016 9:17 PM Latest Code Status on File Code Status Date Activated Date Inactivated Comments Full Code - Unverified 11/02/2023 10:30 PM 11/06/2023 8: 17 PM Code Status History Code Status Date Activated Date Inactivated Comments Full Code - Unverified 12/11/2016 1:24 AM 12/11/2016 4:3 9 PM Full Code 09/18/2016 3:23 AM 09/21/2016 11:41 PM Full Code - Unverified 03/20/2016 3:16 AM 03/20/2016 9:17 PM Latest Code Status on File Code Status Date Activated Date Inactivated Comments Full Code - Unverified 11/08/2023 4:58 PM Code Status reflects patient's informed choice. Code Status History Code Status Date Activated Date Inactivated Comments Full Code - Unverified 11/02/2023 10:30 PM 11/06/2023 8: 17 PM Full Code - Unverified 12/11/2016 1:24 AM 12/11/2016 4:3 9 PM Full Code 09/18/2016 3:23 AM 09/21/2016 11:41 PM Full Code - Unverified 03/20/2016 3:16 AM 03/20/2016 9:17 PM Latest Code Status on File Code Status Date Activated Date Inactivated Comments Full Code - Unverified 11/08/2023 4:58 PM Code Status reflects patient's informed choice. Code Status History Code Status Date Activated Date Inactivated Comments Full Code - Unverified 11/02/2023 10:30 PM 11/06/2023 8: 17 PM Full Code - Unverified 12/11/2016 1:24 AM 12/11/2016 4:3 9 PM Full Code 09/18/2016 3:23 AM 09/21/2016 11:41 PM Full Code - Unverified 03/20/2016 3:16 AM 03/20/2016 9:17 PM Date Activated Date Inactivated Comments 11/08/2023 4:58 PM Code Status re flects patient's informed choice. Date Activated Date Inactivated Comments 11/02/2023 10:30 PM 11/06/2023 8:17 PM Date Activated Date Inactivated Comments 12/11/2016 1:24 AM 12/11/2016 4:39 PM Date Activated Date Inactivated Comments 09/18/2016 3:23 AM 09/21/2016 11:41 PM Date Activated Date Inactivated Comments 03/20/2016 3:16 AM 03/20/2016 9:17 PM Date Activated Date Inactivated Comments 11/08/2023 4:58 PM Code Status re flects patient's informed choice. Date Activated Date Inactivated Comments 11/02/2023 10:30 PM 11/06/2023 8:17 PM Date Activated Date Inactivated Comments 12/11/2016 1:24 AM 12/11/2016 4:39 PM Date Activated Date Inactivated Comments 09/18/2016 3:23 AM 09/21/2016 11:41 PM Date Activated Date Inactivated Comments 03/20/2016 3:16 AM 03/20/2016 9:17 PM Latest Code Status on File Code Status Date Activated Date Inactivated Comments Full Code 03/29/2012 3:26 AM 03/29/2012 10:12 PM Code Status History Code Status Date Activated Date Inactivated Comments Full Code-Unverified 02/14/2012 1:04 PM 02/17/2012 5:24 PM Documents on File Type Date Recorded Patient Attendant Lodging Facilities Expl anation Power of Hand Crown Pouncer Date Activated Date Inactivated Comments 04/16/2024 7:21 PM Code Status ref lects patient's informed choice. Date Activated Date Inactivated Comments 11/08/2023 4:58 PM 04/16/2024 7:21 PM Code Status r eflects patient's informed choice. Date Activated Date Inactivated Comments 11/02/2023 10:30 PM 11/06/2023 8:17 PM Date Activated Date Inactivated Comments 12/11/2016 1:24 AM 12/11/2016 4:39 PM Date Activated Date Inactivated Comments 09/18/2016 3:23 AM 09/21/2016 11:41 PM Documents on File Type Date Recorded Patient Attendant Lodging Facilities Expl anation Power of Hand Crown Pouncer Date Activated Date Inactivated Comments 04/16/2024 7:21 PM Code Status ref lects patient's informed choice. Date Activated Date Inactivated Comments 11/08/2023 4:58 PM 04/16/2024 7:21 PM Code Status r eflects patient's informed choice. Date Activated Date Inactivated Comments 11/02/2023 10:30 PM 11/06/2023 8:17 PM Date Activated Date Inactivated Comments 12/11/2016 1:24 AM 12/11/2016 4:39 PM Date Activated Date Inactivated Comments 09/18/2016 3:23 AM 09/21/2016 11:41 PM Date Activated Date Inactivated Comments 04/16/2024 7:21 PM 04/30/2024 1:28 PM Code Status r eflects patient's informed choice. Date Activated Date Inactivated Comments 04/16/2024 7:21 PM 04/30/2024 1:28 PM Code Status r eflects patient's informed choice. Date Activated Date Inactivated Comments 03/29/2012 3:26 AM 03/29/2012 10:12 PM Date Activated Date Inactivated Comments 02/14/2012 1:04 PM 02/17/2012 5:24 PM Date Activated Date Inactivated Comments 03/29/2012 3:26 AM 03/29/2012 10:12 PM Date Activated Date Inactivated Comments 02/14/2012 1:04 PM 02/17/2012 5:24 PM Directive Yes / No Effective Date File Name No Information Summary Purpose Family History No Family History Records Found Family Member Type Diagnosis Age At Onset Father Problem (finding) Congenital heart diseas e Mother Problem (finding) Hypertension Reason for Referral Specialty Diagnoses / Procedures Referred By Contac t Referred To Contact Rehabilitation Diagnoses Multiple falls Impaired gait Primary osteoarthritis of both knees Francine Alvarez, BALDOMERO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 cm none LA:Ao ratio (2D) 1 ratio none Aortic root diameter (2D) inde1.52 cm/m2 none LA dimension (2D) index 1.52 cm/m2 none Volumes/Mass Name Value Normal Range LA ESV SP 4CH (MOD) 30 ml none LV EDV SP 4CH (MOD) 59 ml none LV ESV SP 4CH (MOD) 20 ml none LV mass (2D) 158.79 g none LV mass (2D) index 78.03 g/m2 none Diastolic/Systolic Function Name Value Normal Range MV E-wave Vmax 0.65 m/sec none MV deceleration time 239 msec none MV A-wave Vmax 0.97 m/sec none MV E:A ratio 0.67 ratio (1.1 - 1.5) LV septal e' Vmax 0.06 m/sec none LV lateral e' Vmax 0.1 m/sec none LV average e' Vmax 0.08 m/sec none LV E:e' septal ratio 11.57 ratio none LV E:e' lateral ratio 6.34 ratio none LV average E:e' ratio 8.2 ratio none Aortic Valve Name Value Normal Range AV Vmax 1.21 m/sec (1 - 1.7) AV peak gradient 5.86 mmHg (Less Than 36) LVOT diameter 2.2 cm (1.7 - 2.5) LVOT Vmax 0.95 m/sec (0.7 - 1.1) LVOT peak gradient 4 mmHg none DOI (Vmax) 0.78 ratio none JD (continuity Vmax) 2.98 cm2 none JD (continuity Vmax) index 1.46 cm2/m2 none Electronically Signed at 09/18/2016 16:34:44 by: Tati Thacker MD Recent Results (from the past 41552 hours) XR CHEST AP/PA AND LAT 12/10/2016 (Final) Status: Normal Narrative EXAMINATION: XR CHEST AP/PA AND LAT HISTORY: 60-year-old woman with PICC line. Evaluate placement. TECHNIQUE: Frontal and lateral chest radiographs. COMPARISON: Chest radiograph 10/23/2016. FINDINGS: A right PICC line has been retracted with the tip now overlying the right upper lung zone, likely in the right brachiocephalic vein or subclavian vein. Mild airspace opacity in the lingula persists. There is no pleural effusion or pneumothorax. The cardiomediastinal silhouette is within normal limits. There are multilevel degenerative changes of the spine with exaggerated kyphosis. Impression 1. A right PICC line has been retracted with the tip now overlying the right brachiocephalic vein or subclavian vein. 2. Persistent mild airspace opacity in the lingula may represent atelectasis, scarring or pneumonitis. [facility]/elmo Workstation ID: [id number] LABS Per Anesthesia guidelines or surgeon requested EKG Not required for procedure plan OLD RECORD SUMMARY Reviewed to further risk stratify patient for surgery includes - More recent [facility] electronic records reviewed pertinent to history. OUTSIDE RECORDS REQUESTED NONE A copy of this report has been made available to the referring physician in the hospital's EMR and/or by being faxed to the surgeon's office/surgery center. documented in this encounter INTERVAL HISTORY AND PHYSICAL Patient Name: Georgia Ochoa Admit Date: [id number] MR #: [id number] : 1955 The H&P has been reviewed and the patient has been examined. I concur with the findings of the H&P. There are no significant changes. It is appropriate to proceed with the planned procedure. Kaylen Womack MD 09/25/2020 8:59 AM Assessment and Plan 1. Preop examination Preoperative medical risk stratification indicates patient is medically acceptable risk for elective low risk procedure. 2. Cataract of left eye, unspecified cataract type Patient provided instructions on preoperative management of medications including withholding Aspirin, NSAIDS, Vitamin C, Vitamin E, Fish Oil, and specific Herbal Supplements 7-10 days prior to procedure. 3. Pre-operative cardiovascular examination This patient has no active cardiac conditions and has a revised cardiac risk index score (RCRI) of 0 and therefore,<1% risk of major adverse cardiac event. In addition is asymptomatic with greater than 4 METS of functional capacity and therefore is at acceptable for elective surgery based on 2014 [place] [employer] [employer] (ACC/AHA) guidelines on Perioperative Cardiovascular Evaluation and Management of Patients Undergoing Noncardiac Surgery. 4. Asthma, unspecified asthma severity, unspecified whether complicated, unspecified whether persistent Asthma (J45.909) Currently well controlled and optimized for surgery without acute exacerbation, patient denies any chronic use of inhalers and no major issues over the past 3 years 5. Depression, unspecified depression type Stable, On no specific pharmacologic therapy 6. MVP (mitral valve prolapse) Remote diagnosis and has remained asymptomatic never required any specific pharmacologic treatment. 7. Obesity (BMI 30-39.9) Obesity, Unspecified (E66.9) Body mass index is 36.44 kg/m . Patient will require close monitoring of respiratory status while on IV opiates and I would recommend continuous pulse oximetry. Please see ANILA risk assessment-intermediate risk The patient was counseled today in preadmission testing as to the beneficial effects of weight loss. The patient has been counseled to follow up with their primary care physician to set up a structured program for diet/structured weight loss program. 8. Elevated BP without Dx of HTN Elevated Blood pressure with no prior Diagnosis of Hypertension (R03.0) Patient denies any history of hypertension, current blood pressure reading although elevated is within an acceptable range for elective surgery. Patient advised on continuing monitoring and follow up with PCP. (!) 149/97 and elevated. Not currently on medications for treatment. Chief Complaint Patient presents with Pre-operative Medical Risk Stratification History of Present Illness Georgia Ochoa is a 64 y.o. female who presents for preoperative medical risk stratification consult at the request of Kaylen Womack MD prior to LEFT EYE CATARACT EXTRACTION WITH LENS IMPLANT WITH [facility] OR 09/04/2020. This patient presents with complaints of decreased visual acuity involving both eyes that she is noticed over the last 5 years. She states she was diagnosed with cataracts several years ago. Patient reports she is no longer driving at night due to halos surrounding lights. She states her right eye is worst at this time and is now scheduled undergo right eye cataract extraction scheduled for September 11. She is contemplating having the left one done at a future date. Patient reports no significant chronic health conditions requiring pharmacologic treatment. This patient reports history of asthma diagnosed at time of an ER presentation about 3 to 4 years ago but never required any specific treatment or chronic use of inhalers. Denies any recent exacerbation. She also reports a remote history of MVP diagnosed back as a teenager. Patient reports she did undergo possible echocardiogram versus ECG around the age of 16. She has remained asymptomatic never required any pharmacologic treatment. In addition this patient has history of.rspatdep requiring pharmacologic treatment and doing well. Patient reports previous diagnosis of Lyme's disease and babesiosis while she was in [place] 3 years ago that responded to appropriate antibiotic treatment. No long-term sequela The patient reports no problems with prior anesthesia experiences. This patient functional capacity is at least 4 METs without symptoms of chest pain or shortness of breath. This patient denies any recent travel to areas of high risk for COVID-19, exposure to anyone who has been diagnosed with COVID-19, or signs or symptoms suggesting acute viral infection. Please see below regarding status of active medical conditions and assessment and plan regarding details of preoperative medical risk stratification. Past Medical History: Diagnosis Date Asthma Babesiosis Depression Fuchs endothelial corneal dystrophy type 1 Gall stones Heart valve disease mvp Infection, bartonella Lyme disease Nephrolithiasis Past Medical History Pertinent Negatives: Diagnosis Date Noted Bleeding disorder (HCC) 08/29/2020 Cancer ([facility]) 08/29/2020 Complication of anesthesia 08/29/2020 Deep vein thrombosis (HCC) 08/29/2020 No blood products 08/29/2020 Pulmonary embolism (HCC) 08/29/2020 Sleep apnea, obstructive 08/29/2020 Past Surgical History: Procedure Laterality Date FRACTURE SURGERY KIDNEY STONE SURGERY Social History Tobacco Use Smoking status: Never Smoker Smokeless tobacco: Never Used Substance Use Topics Alcohol use: No Family History Problem Relation Age of Onset Hypertension Mother Heart disease Father Kidney disease Father Heart disease Maternal Uncle Prior to Admission medications Not on File Allergies Allergen Reactions Aspirin Shortness Of Breath Doxycycline Shortness Of Breath, Itching, Swelling and Rash Oral and IV Bactrim [Sulfamethoxazole-Trimethoprim] Hives Ciprofloxacin Hives dizziness Review of Systems Constitution: (negative) HENT: (negative) Eyes: (negative) Respiratory: (negative) Cardiovascular: (negative) - Exercise capacity: Greater than 4 METS Gastrointestinal: (negative) Genitourinary: (negative) Musculoskeletal: (negative) Skin: (negative) Neurological: (negative) Hematological: (negative) Physical Exam BP (!) 149/97 Pulse 94 Temp 97.2 F (36.2 C) Ht 5' 3.5 Wt 94.8 kg (209 lb) SpO2 94% BMI 36.44 kg/m Constitutional--Conversant, in no acute distress Eyes: [place] conjunctivae, no ptosis. Pupils equal Bilaterally, Anicteric Ears/nose/mouth/throat:Hearing Intact. Nose and ears appear normal. Oropharynx clear with Moist mucosa Neck: Trachea midline, No Goiter, Non-tender, no masses. Normal ROM. Respiratory: Clear to auscultation/normal respiratory effort. Normal chest excrusion Cardiovascular: Regular rhythm with no murmurs, gallops or rubs. No peripheral edema. Gastrointestinal: Abdomen soft, with no masses, no hepatosplenomegaly. Musculoskeletal: No calf tenderness with palpation, no digital cyanosis or clubbing. Skin: No rashes, Normal turgor and temperature. Neurologic: A & O x 3, No focal deficits Psychiatric: Appropriate affect, intact judgement and insight. Data Preprocedure Sleep Apnea Assessment - Moderate Risk (2/3) Sleep Apnea in the patient's Active Problem List or Medical History: no 1. History of apparent airway obstruction during sleep: (1 point for this category) Do you snore frequently, or snore loud enough to be heard through a closed door?: yes Do you awaken from sleep with a choking sensation or have periods during sleep when someone has observed you pausing between breaths?: no 2. Somnolence of the patient: (1 point for this category) Do you find yourself frequently sleepy despite adequate hours of sleep the night before?: no Do you fall asleep easily while: watching TV, reading, riding in or driving a car?: no 3. Predisposing physician characteristics: (1 point for this category, 2 points if the BMI ? 40) BMI (Calculated): 36.4 Neck Circumference (inches): 15 inches Recent Results (from the past 71280 hours) ECHOCARDIOGRAM COMPLETE W BUBBLE STUDY 09/18/2016 (Final) Status: Normal Narrative Transthoracic Echocardiogram Patient: GRAY Martines [facility] Rec#: [id number] (Age): 1955(60y) Height: 170.18(cm)/66(i Study Date: 09/18/2016 Weight: 92.08(kg)/203(l Room#: ER68 BSA: [id number] Type: Inpatient Loc: [facility] Sex: F Reading: Tati Thacker MD Referring: Brisa Millard MD* Nurse: CHAI NGUYEN RN Architectural Technician: Maribel Quintana RDCS History: The patient has no past medical history. Diagnosis: ICD-10-PCS Personal history of transient ischemic attack (TIA), and cerebral infarction without residual deficits (Z86.73) TIA, cerebral embolism (434.10) CPT Code(s): ECHO COMPLETE W/ DOPPLER (37965) Summary: Patient identity verified and ID band on (pause and confirm). Current HP present on patient chart. Procedure explained and patient verified understanding. Consent obtained for procedure. 9ml Saline agitated with 1ml air, injected IV push per Lab Protocol. A two-dimensional transthoracic echocardiogram with color flow, pulsed and continuous Doppler was performed. The study was technically adequate. Conclusions: Overall normal study. No specific cardiac thromboembolic source identified. There is normal global and regional left ventricular systolic function. The estimated ejection fraction is 60%. No significant valvular abnormalities. No evidence of patent foramen ovale, or other intracardiac shunt, is demonstrated by color Doppler or saline injection. No prior study available for comparison. Findings Procedure Info: The study quality is technically difficult. Reason For Study: TIA. Left Ventricle: The left ventricular chamber size is normal. There is no left ventricular hypertrophy observed. Global left ventricular wall motion and contractility are within normal limits. There is normal left ventricular systolic function. The estimated ejection fraction is 55-60%. No regional wall motion abnormalities are evident. Left Atrium: The left atrial chamber size is normal. No right to left shunting is detected by agitated saline contrast. A patent foramen ovale is not demonstrated by color Doppler. Right Ventricle: The right ventricular chamber size and systolic function are within normal limits. The right ventricular cavity size is normal. The right ventricular global systolic function is normal. Right Atrium: The right atrial cavity size is normal. Aortic Valve: The aortic valve structure is normal. There is no evidence of aortic valve thickening. There is no hemodynamically significant stenosis. There is no evidence of aortic regurgitation. Mitral Valve: The mitral valve leaflets appear normal. There is no evidence of mitral valve prolapse. There is no evidence of mitral stenosis. There is trivial physiological regurgitation of the mitral valve. Tricuspid Valve: The tricuspid valve leaflets are normal. There is trivial physiological regurgitation of the tricuspid valve. Pulmonary artery pressure could not be estimated. Pulmonic Valve: The pulmonic valve appears grossly normal in structure and function. Pericardium: There is no pericardial effusion. Aorta: The aortic root is normal in diameter. HR 94 BP 150/85 Measurements Chambers 2D Name Value Normal Range IVSd (2D) 1.35 cm none LVPWd (2D) 1.23 cm none IVS:LVPW ratio (2D) 1.1 ratio none LVIDd (2D) 3.61 cm none LVIDs (2D) 2.57 cm none LVIDd (2D) index 1.77 cm/m2 none LVIDs (2D) index 1.26 cm/m2 none Ao root diameter (2D) 3.1 cm none LA dimension (AP) 2D 3.1 cm none LA:Ao ratio (2D) 1 ratio none Aortic root diameter (2D) inde1.52 cm/m2 none LA dimension (2D) index 1.52 cm/m2 none Volumes/Mass Name Value Normal Range LA ESV SP 4CH (MOD) 30 ml none LV EDV SP 4CH (MOD) 59 ml none LV ESV SP 4CH (MOD) 20 ml none LV mass (2D) 158.79 g none LV mass (2D) index 78.03 g/m2 none Diastolic/Systolic Function Name Value Normal Range MV E-wave Vmax 0.65 m/sec none MV deceleration time 239 msec none MV A-wave Vmax 0.97 m/sec none MV E:A ratio 0.67 ratio (1.1 - 1.5) LV septal e' Vmax 0.06 m/sec none LV lateral e' Vmax 0.1 m/sec none LV average e' Vmax 0.08 m/sec none LV E:e' septal ratio 11.57 ratio none LV E:e' lateral ratio 6.34 ratio none LV average E:e' ratio 8.2 ratio none Aortic Valve Name Value Normal Range AV Vmax 1.21 m/sec (1 - 1.7) AV peak gradient 5.86 mmHg (Less Than 36) LVOT diameter 2.2 cm (1.7 - 2.5) LVOT Vmax 0.95 m/sec (0.7 - 1.1) LVOT peak gradient 4 mmHg none DOI (Vmax) 0.78 ratio none JD (continuity Vmax) 2.98 cm2 none JD (continuity Vmax) index 1.46 cm2/m2 none Electronically Signed at 09/18/2016 16:34:44 by: Tati Thacker MD Recent Results (from the past 02085 hours) XR CHEST AP/PA AND LAT 12/10/2016 (Final) Status: Normal Narrative EXAMINATION: XR CHEST AP/PA AND LAT HISTORY: 60-year-old woman with PICC line. Evaluate placement. TECHNIQUE: Frontal and lateral chest radiographs. COMPARISON: Chest radiograph 10/23/2016. FINDINGS: A right PICC line has been retracted with the tip now overlying the right upper lung zone, likely in the right brachiocephalic vein or subclavian vein. Mild airspace opacity in the lingula persists. There is no pleural effusion or pneumothorax. The cardiomediastinal silhouette is within normal limits. There are multilevel degenerative changes of the spine with exaggerated kyphosis. Impression 1. A right PICC line has been retracted with the tip now overlying the right brachiocephalic vein or subclavian vein. 2. Persistent mild airspace opacity in the lingula may represent atelectasis, scarring or pneumonitis. [facility]/ Workstation ID: [id number] LABS Per Anesthesia guidelines or surgeon requested EKG Not required for procedure plan OLD RECORD SUMMARY Reviewed to further risk stratify patient for surgery includes - More recent [facility] electronic records reviewed pertinent to history. OUTSIDE RECORDS REQUESTED NONE A copy of this report has been made available to the referring physician in the hospital's EMR and/or by being faxed to the surgeon's office/surgery center. documented in this encounter Op Note - Kaylen Womack MD - 09/11/2020 7:36 AM ESTOp Note - Kaylen Womack MD - 09/25/2020 10:17 AM EST Miscellaneous Notes (unrecog nized section and content) Patient Name: Geogria Ochoa Surgery Date: September 11, 2020 [facility]#: [id number] : 1955 SURGEON: Kaylen Womack MD PREOPERATIVE DIAGNOSIS: Visually significant cataract left eye, Astigmatism Left Eye OPERATION: Phacoemulsification with posterior chamber intraocular lens implantation left eye, Limbal Relaxing Incision Left Eye ANESTHESIA: Topical anesthesia with regional standby INDICATIONS AND CONSENT: The patient is complaining of a progressive decrease in visual acuity with difficulty performing activities of daily living. Anterior segment examination demonstrates a visually significant cataract. Funduscopic examination was unremarkable. The risks and benefits of the cataract surgery were discussed and the possible complications of surgery, including infection, bleeding, glaucoma, corneal decompensation, ptosis, retinal detachment, cystoid macular edema, loss of vision and loss of the eye were explained to the patient. The patient agreed to proceed with the operation. COMPLICATIONS: None PROCEDURE: After dilation, the patient was brought to the operating room where face and forehead were prepped and draped in the usual sterile fashion. A time out was taken. A lid speculum was placed over the plastic drape completely covering the lid margins and lashes. 2 paired LRIs were created with a guarded krystal blade without complications. The sideport incision was first made, followed by Lidocaine for further anesthesia. Next, Amvisc was placed in the anterior chamber. Then a krystal knife was used to make a temporal incision. A cystotome was used to start the opening of the capsulorhexis, and was completed with the Utrata forceps. Hydrodissection was performed with a 27 gauge Mcgowan cannula, loosening the outer cortex from the capsule and cortico- nuclear rotation was established. The Bausch and Lomb phacoemulsification unit was then used to remove the cortical nuclear fragment using the chopping technique with the Gorge chopper in my left hand to cut pie shaped portions of the lens and removing these and rotating the lens clockwise until the entire cortical nuclear fragment was removed. The irrigation-aspiration tip was then used to remove remaining cortex. I confirmed that the anterior and posterior capsule were completely intact. Viscoelastic was used to fill the bag and the anterior chamber. A posterior chamber lens implant was injected into the capsular bag and rotated into position. The I & A tip was then introduced and the viscoelastic was removed. The wound was sealed in a water-tight fashion. Topical Iopodine and Tobradex was placed and the eye and a shield was used. The procedure went uneventfully and the patient left the operating room in good condition documented in this encounter Patient Name: Georgia Ochoa Surgery Date: September 25, 2020 [facility]#: [id number] : 1955 SURGEON: Kaylen Womakc MD PREOPERATIVE DIAGNOSIS: Visually significant cataract right eye. Astigmatism Right Eye OPERATION: Phacoemulsification with posterior chamber intraocular lens implantation Right eye, with Limbal Relaxing Incisions ANESTHESIA: Topical anesthesia with regional standby INDICATIONS AND CONSENT: The patient is complaining of a progressive decrease in visual acuity with difficulty performing activities of daily living. Anterior segment examination demonstrates a visually significant cataract. Funduscopic examination was unremarkable. The risks and benefits of the cataract surgery were discussed and the possible complications of surgery, including infection, bleeding, glaucoma, corneal decompensation, ptosis, retinal detachment, cystoid macular edema, loss of vision and loss of the eye were explained to the patient. The patient agreed to proceed with the operation. COMPLICATIONS: None PROCEDURE: After dilation, the patient was brought to the operating room where face and forehead were prepped and draped in the usual sterile fashion. A time out was taken. A lid speculum was placed over the plastic drape completely covering the lid margins and lashes. Two paired LRIs were created with a guarded krystal blade in the appropriate meridian to correct the astigmatism. The sideport incision was first made, followed by Lidocaine for further anesthesia. Next,Healon was placed in the anterior chamber. Then a krystal knife was used to make a temporal incision. A cystotome was used to start the opening of the capsulorhexis, and was completed with the Utrata forceps. Hydrodissection was performed with a 27 gauge Mcgowan cannula, loosening the outer cortex from the capsule and cortico- nuclear rotation was established. The Bausch and Lomb phacoemulsification unit was then used to remove the cortical nuclear fragment using the chopping technique with the Mariely spatula in my left hand to cut pie shaped portions of the lens and removing these and rotating the lens clockwise until the entire cortical nuclear fragment was removed. The irrigation-aspiration tip was then used to remove remaining cortex. I confirmed that the anterior and posterior capsule were completely intact. Viscoelastic was used to fill the bag and the anterior chamber. A posterior chamber lens implant was injected into the capsular bag and rotated into position. The I & A tip was then introduced and the viscoelastic was removed. The wound was sealed in a water-tight fashion. Topical Tobradex and Iopodine was placed and the eye was covered with a clear shield. The procedure went uneventfully and the patient left the operating room in good condition documented in this encounter Care Teams (unrecognized sec tion and content) Outbound Sales Representative Relationship Specialty Start Date End Date Francine Alvarez CNP [address] [place] [address] PCP - General Nurse Practitioner 11/28/19 Outbound Sales Representative Relationship Specialty Start Date End Date Francine Alvarez CNP [address] [place] [facility] [place] [address] PCP - General Nurse Practitioner 11/28/19 Outbound Sales Representative Relationship Specialty Start Date End Date Francine Alvarez CNP [address] [place] [address] PCP - General Nurse Practitioner 11/28/19 Outbound Sales Representative Relationship Specialty Start Date End Date Francine Alvarez CNP [address] [facility] [place] [address] PCP - General Nurse Practitioner 11/28/19 Outbound Sales Representative Relationship Specialty Start Date End Date Francine Alvarez CNP [address] [place] [address] PCP - General Nurse Practitioner 11/28/19 Team Status: Inactive Member Role Status Dates Krys Lucero LANDSCAPE FOREMAN, LANDSCAPE FOREMAN-C Attending Provider, Referri ng Provider Active Outbound Sales Representative Relationship Specialty Start Date End Date Francine Alvarez CNP [address] [place] [address] PCP - General Nurse Practitioner 11/28/19 Outbound Sales Representative Relationship Specialty Start Date End Date Francine Alvarez CNP [address] [place] [address] PCP - General Nurse Practitioner 11/28/19 Outbound Sales Representative Relationship Specialty Start Date End Date Francine Alvarez CNP [address] [place] [address] PCP - General Nurse Practitioner 11/28/19 Nitza Marin, motors and controls testerInspector [employer] 11/09/23 Outbound Sales Representative Relationship Specialty Start Date End Date Francine Alvarez CNP [address] [place] [address] PCP - General Nurse Practitioner 11/28/19 Nitza Marin, motors and controls testerInspector [employer] 11/09/23 Outbound Sales Representative Relationship Specialty Start Date End Date Francine Alvarez CNP [address] [place] [address] PCP - General Nurse Practitioner 11/28/19 Nitza Marin, motors and controls testerInspector [employer] 11/09/23 Outbound Sales Representative Relationship Specialty Start Date End Date Francine Alvarez CNP [address] [place] [address] PCP - General Nurse Practitioner 11/28/19 Nitza Marin, motors and controls testerInspector [employer] 11/09/23 Outbound Sales Representative Relationship Specialty Start Date End Date Francine Alvarez CNP [address] [place] [address] PCP - General Nurse Practitioner 11/28/19 Nitza Marin, motors and controls testerInspector [employer] 11/09/23 Outbound Sales Representative Relationship Specialty Start Date End Date Francine Alvarez CNP [address] [place] [address] PCP - General Nurse Practitioner 11/28/19 Nitza Marin, motors and controls testerInspector [employer] 11/09/23 Outbound Sales Representative Relationship Specialty Start Date End Date Francine Alvarez CNP [address] [place] [address] PCP - General Nurse Practitioner 11/28/19 Nitza Marin, motors and controls testerInspector [employer] 11/09/23 Outbound Sales Representative Relationship Specialty Start Date End Date Francine Alvarez CNP [address] [place] [address] PCP - General Nurse Practitioner 11/28/19 Nitza Marin, motors and controls testerInspector [employer] 11/09/23 Outbound Sales Representative Relationship Specialty Start Date End Date Francine Alvarez CNP [address] [place] [address] PCP - General Nurse Practitioner 11/28/19 Nitza Marin, motors and controls testerInspector [employer] 11/09/23 Outbound Sales Representative Relationship Specialty Start Date End Date Francine Alvarez CNP [address] [facility] [place] [address] PCP - General Nurse Practitioner 11/28/19 Nitza Marin, motors and controls testerInspector [employer] 11/09/23 12/01/23 Outbound Sales Representative Relationship Specialty Start Date End Date Francine Alvarez CNP [address] [place] [address] PCP - General Nurse Practitioner 11/28/19 Outbound Sales Representative Relationship Specialty Start Date End Date Francine Alvarez CNP [address] [facility] [place] [address] PCP - General Certified Nurse Practitioner 12/11/23 Outbound Sales Representative Relationship Specialty Start Date End Date Francine Alvarez CNP [address] [place] [address] PCP - General Nurse Practitioner 11/28/19 Outbound Sales Representative Relationship Specialty Start Date End Date Francine Alvarez CNP [address] [place] [address] PCP - General Nurse Practitioner 11/28/19 Outbound Sales Representative Relationship Specialty Start Date End Date Francine Alvarez CNP [address] [place] [address] PCP - General Nurse Practitioner 11/28/19 Outbound Sales Representative Relationship Specialty Start Date End Date Francine Alvarez CNP [address] [place] [address] PCP - General Nurse Practitioner 11/28/19 Outbound Sales Representative Relationship Specialty Start Date End Date Francine Alvarez CNP [address] [place] [address] PCP - General Nurse Practitioner 11/28/19 Outbound Sales Representative Relationship Specialty Start Date End Date Francine Alvarez CNP [address] [place] [address] PCP - General Nurse Practitioner 11/28/19 Outbound Sales Representative Relationship Specialty Start Date End Date Francine Alvarez CNP [address] [place] [address] PCP - General Nurse Practitioner 11/28/19 Outbound Sales Representative Relationship Specialty Start Date End Date Francine Alvarez CNP PCP - General Nurse Practitioner 11/28/19 Outbound Sales Representative Relationship Specialty Start Date End Date Francine Alvarez CNP PCP - General Nurse Practitioner 11/28/19 Outbound Sales Representative Relationship Specialty Start Date End Date Francine Alvarez CNP PCP - General Nurse Practitioner 11/28/19 Outbound Sales Representative Relationship Specialty Start Date End Date Francine Alvarez CNP PCP - General Nurse Practitioner 11/28/19 Outbound Sales Representative Relationship Specialty Start Date End Date Francine Alvarez CNP PCP - General Nurse Practitioner 11/28/19 Outbound Sales Representative Relationship Specialty Start Date End Date Francine Alvarez CNP PCP - General Nurse Practitioner 11/28/19 Outbound Sales Representative Relationship Specialty Start Date End Date Francine Alvarez CNP PCP - General Nurse Practitioner 11/28/19 Outbound Sales Representative Relationship Specialty Start Date End Date Francine Alvarez CNP PCP - General Nurse Practitioner 11/28/19 Outbound Sales Representative Relationship Specialty Start Date End Date Francine Alvarez CNP PCP - General Nurse Practitioner 11/28/19 Outbound Sales Representative Relationship Specialty Start Date End Date Francine Alvarez CNP PCP - General Nurse Practitioner 11/28/19 Outbound Sales Representative Relationship Specialty Start Date End Date Francine Alvarez BALDOMERO PCP - General Nurse Practitioner 11/28/19 Outbound Sales Representative Relationship Specialty Start Date End Date Francine AlvarezBALDOMERO PCP - General Nurse Practitioner 11/28/19 Outbound Sales Representative Relationship Specialty Start Date End Date Francine Alvarez BALDOMERO PCP - General Nurse Practitioner 11/28/19 Outbound Sales Representative Relationship Specialty Start Date End Date Francine Alvarez BALDOMERO PCP - General Nurse Practitioner 11/28/19 Outbound Sales Representative Relationship Specialty Start Date End Date Francine Alvarez BALDOMERO PCP - General Nurse Practitioner 11/28/19 Outbound Sales Representative Relationship Specialty Start Date End Date Dominique Alcantar PA-C [address] [place] [address] PCP - General Physician Leadite Heater 05/24/24 Outbound Sales Representative Relationship Specialty Start Date End Date Francine Alvarez CNP PCP - General Certified Nurse Practitioner 12/11/23 Outbound Sales Representative Relationship Specialty Start Date End Date Francine Alvarez CNP PCP - General Certified Nurse Practitioner 12/11/23 Outbound Sales Representative Relationship Specialty Start Date End Date Francine Alvarez CNP PCP - General Certified Nurse Practitioner 12/11/23 Outbound Sales Representative Relationship Specialty Start Date End Date Dominique Alcantar PA-C [address] [place] [address] PCP - General Physician Leadite Heater 05/24/24 Outbound Sales Representative Relationship Specialty Start Date End Date Dominique Alcantar PA-C [address] [place] [address] PCP - General Physician Leadite Heater 05/24/24 Outbound Sales Representative Relationship Specialty Start Date End Date Dominique Alcantar PA-C [address] [place] [address] PCP - General Physician Leadite Heater 05/24/24 Outbound Sales Representative Relationship Specialty Start Date End Date Francine Alvarez CNP PCP - General Certified Nurse Practitioner 12/11/23 Outbound Sales Representative Relationship Specialty Start Date End Date Francine Alvarez CNP PCP - General Certified Nurse Practitioner 12/11/23 Outbound Sales Representative Relationship Specialty Start Date End Date Francine Alvarez CNP PCP - General Certified Nurse Practitioner 12/11/23 Outbound Sales Representative Relationship Specialty Start Date End Date Francine Alvarez CNP PCP - General Certified Nurse Practitioner 12/11/23 Outbound Sales Representative Relationship Specialty Start Date End Date Physician, No Pcp PCP - General 09/28/24 Name Effective Dates (start - stop) Status Members No Information Outbound Sales Representative Relationship Specialty Start Date End Date Carmela Rossi MD [address] [place] [address] PCP - General Family Medicine 04/13/12 Outbound Sales Representative Relationship Specialty Start Date End Date Dominique Alcantar PA-C [address] [place] [facility] [place] [address] PCP - General Physician Leadite Heater 05/24/24 Outbound Sales Representative Relationship Specialty Start Date End Date Francine Alvarez CNP PCP - General Certified Nurse Practitioner 12/11/23 Outbound Sales Representative Relationship Specialty Start Date End Date Physician, Reema Pcp PCP - General 09/28/24 Team Status: Active Member Role Status Dates Krys Lucero LANDSCAPE FOREMAN, LANDSCAPE FOREMAN-C Primary Care Provider Activ e Team Status: Inactive Member Role Status Dates Krys Lucero LANDSCAPE FOREMAN, LANDSCAPE FOREMAN-C Primary Care Provider Activ e Start: December 15, 2024 End: December 15, 2024 Krys Lucero LANDSCAPE FOREMAN, LANDSCAPE FOREMAN-C Attending Provider Active Start: December 15, 2024 End: December 15, 2024 Outbound Sales Representative Relationship Specialty Start Date End Date Francine Alvarez CNP PCP - General Certified Nurse Practitioner 12/11/23 Outbound Sales Representative Relationship Specialty Start Date End Date Francine Alvarez CNP PCP - General Certified Nurse Practitioner 12/11/23 Outbound Sales Representative Relationship Specialty Start Date End Date Francine Alvarez CNP PCP - General Certified Nurse Practitioner 12/11/23 Outbound Sales Representative Relationship Specialty Start Date End Date Francine Alvarez CNP PCP - General Certified Nurse Practitioner 12/11/23 Outbound Sales Representative Relationship Specialty Start Date End Date Bhakti Harley Aida, REED POLISHER-INTERNAL MEDICINE NURSE PRACTITIONER [address] [facility] [place] [address] [place] [address] PCP - General Certified Nurse Practitioner 03/31/25 INFORMATION SOURCE (unrecogn ized section and content) DATE CREATED AUTHOR 11/13/2022 [facility] DATE CREATED AUTHOR AUTHOR'S ORGANIZ ATION 05/03/2024 [facility] DATE CREATED AUTHOR AUTHOR'S ORGANIZ ATION 05/05/2024 [facility] DATE CREATED AUTHOR AUTHOR'S ORGANIZ ATION 05/08/2024 [facility] DATE CREATED AUTHOR AUTHOR'S ORGANIZ ATION 05/10/2024 [facility] DATE CREATED AUTHOR AUTHOR'S ORGANIZ ATION 08/04/2024 [facility] DATE CREATED AUTHOR AUTHOR'S ORGANIZ ATION 08/11/2024 [facility] DATE CREATED AUTHOR AUTHOR'S ORGANIZ ATION 10/25/2024 [facility] DATE CREATED AUTHOR AUTHOR'S ORGANIZ ATION 11/08/2024 [facility] DATE CREATED AUTHOR AUTHOR'S ORGANIZ ATION 12/22/2024 [facility] DATE CREATED AUTHOR AUTHOR'S ORGANIZ ATION 12/26/2024 [facility] DATE CREATED AUTHOR AUTHOR'S ORGANIZ ATION 04/08/2025 [facility] Goals (unrecognized section and content) Health Concern Goal Type Priority Status No Information Scheduled Active and Recently Administ ered Medications (unrecognized section and content) Medication Order 08/28/2024 08/29/2024 08/30/2024 gondgqsf-lgyzxvygb-rcyjbglyrxgwai (CORTISPORIN) [id number] otic suspension 4 drop 4 drop, Right Ear, 4 TIMES DAILY, First dose (after last modification) on Thu08/30/24 at 1845, Until Discontinued, Shake well prior to use. For administration in the EAR only. Please bring to bedside for physician administration 1840 (Given - Provid er: Nidia Peacock RN - Comment: ) Scheduled Medication Order 09/26/2024 09/27/2024 09/28/2024 HYDROcodone-acetaminophen (NORCO) 5-325 mg per tablet 1 tablet (COMPLETED) 1 tablet, oral, Once, On Thu09/28/24 at 1859, For 1 dose 1902 (Given - Provid er: Zbigniew Haynes RN) ondansetron ODT (ZOFRAN-ODT) disintegrating tablet 4 mg (COMPLETED) 4 mg, oral, Once, On Thu09/28/24 at 1859, For 1 dose 1902 (Given - Provid er: Zbigniew Haynes RN) Scheduled Medication Order 12/16/2024 2024 12/18/2024 cefTRIAXone (ROCEPHIN) IV syringe 1 g (COMPLETED) 1 g, intravenous, Administer over 3 Minutes, Once, On 12/18/24 at 0233, For 1 dose, Do not administer simultaneously with any calcium containing solutions via a Y-site in any patient., Indication: Urinary Tract/Genitourinary 0240 (Given - Provid er: Dianna Fox RN) iopamidoL (ISOVUE-300) 300 mg iodine /mL (61 %) solution 100 mL (COMPLETED) 100 mL, intravenous, Once in imaging, Starting on 12/18/24 at 0207, For 1 dose 020 (Given - Provid er: Vickie Ignacio) ketorolac (TORADOL) injection 15 mg (COMPLETED) 15 mg, intravenous, Once, On 12/18/24 at 0043, For 1 dose 013 (Given - Provid er: Dianna Fox RN) ondansetron (PF) (ZOFRAN) injection 4 mg (COMPLETED) 4 mg, intravenous, Once, On 12/18/24 at 0043, For 1 dose 013 (Given - Provid er: Dianna Fox RN) sodium chloride 0.9 % bolus 1,000 mL (COMPLETED) 1,000 mL, intravenous, at 1,000 mL/hr, Administer over 1 Hours, Once, On 12/18/24 at 0043, For 1 dose 013 (New Bag - Prov ider: Dianna Fox RN)0406 (Stopped - Provider: Dianna Fox RN) sodium chloride 0.9 % flush 20 mL (COMPLETED) 20 mL, intravenous, Once, On 12/18/25 at 0208, For 1 dose 0209 (Given - Provid er: Vickie Ignacio) Scheduled Medication Order 03/05/2025 03/06/2025 03/07/2025 atovaquone-proguanil (MALARONE) 250-100 MG tablet 2 tablet 2 tablet, Oral, 2 TIMES DAILY WITH MEALS, First dose on Thu03/07/25 at 0800, Until Discontinued, If vomiting occurs within 1 hour of administration, dose should be repeated. Tablets may be crushed. 1001 (Given - Provid er: Lynn Burden RN)1627 (Given - Provider: Jas Day RN) Gadopiclenol SOLN 1-25 mL (COMPLETED) 1-25 mL, Intravenous, ONCE, 1 dose, On Thu03/07/25 at 1430 1423 (Given - Provid er: Jordin Michele) iohexol (OMNIPAQUE) 350 MG/ML injection 1-171 mL (COMPLETED) 1-171 mL, Intravenous, ONCE, 1 dose, On Thu03/06/25 at 2045, Extravasation Risk, CT Procedure 2029 (Given - Radiology - Provider: Kailee Dejesus) PRN Medication Order 03/05/2025 03/06/2025 03/07/2025 Acetaminophen (TYLENOL) tablet 650 mg 650 mg, Oral, EVERY 6 HOURS NEEDED, Starting on Thu03/07/25 at 0111, Until Thu03/07/25 at 1855, Mild Pain, Oral temp > 100.4 F, Headaches, Maximum dose of acetaminophen is 4000 mg from all sources in 24 hours. alum/mag hydrox.-simethicone oral suspension 30 mL 30 mL, Oral, EVERY 6 HOURS NEEDED, Starting on Thu03/07/25 at 0110, Until Thu03/07/25 at 1855, Indigestion, Per 5 mL is equivalent to: (Alum-Mag Hydroxide 200-225 mg and Simethicone 20 mg) and (Alum-Mag Hydroxide 200-200 mg and Simethicone 20 mg) Sodium chloride (PF) 0.9 % injection 1-100 mL (COMPLETED) 1-100 mL, Intravenous, ONCE NEEDED, 1 dose, Starting on Thu03/06/25 at 2030, Until Thu03/06/25 at 2029, Flush, CT Procedure 2029 (Given - Provider: Kailee Dejesus) Sodium chloride (PF) 0.9 % injection 1-100 mL 1-100 mL, Intravenous, ONCE NEEDED, 1 dose, Starting on Thu03/07/25 at 1421, Until Thu03/07/25 at 1855, Flush, MR Procedure Ordered Prescriptions (unrec ognized section and content) Prescription Sig Dispensed Refills Start Date End Da te ondansetron ODT (ZOFRAN-ODT) 4 mg disintegrating tabletIndications:Closed displaced fracture of cuboid of left foot, initial encounter Dissolve 1 tablet (4 mg total) on top of the tongue every 8 (eight) hours if needed for nausea or vomiting for up to 5 days. 15 tablet 09/28/2024 10/03/2024 HYDROcodone-acetaminophe n (NORCO) 5-325 mg per tabletIndications:Closed displaced fracture of cuboid of left foot, initial encounter Take 1 tablet by mouth every 6 (six) hours if needed for severe pain for up to 3 days. NO DRIVING OR OPERATING HEAVY MACHINERY WHILE TAKING THIS MEDICATION. Max Daily Amount: 4 tablets 12 tablet 09/28/2024 10/01/2024 Prescription Sig Dispense Quantity Refills Last Filled Start Date End Date aluminum-magnesium hydroxide-simethico ne (MAALOX) 200-200-20 mg/5 mL suspension Take 15 mL by mouth 4 (four) times a day if needed for indigestion or cramping (before meals). 118 mL 12/18/2024 cephalexin (KEFLEX) 500 mg capsule Take 1 capsule (500 mg total) by mouth 4 (four) times a day for 7 days. 28 each 12/18/2024 12/26/19 25 omeprazole (PriLOSEC) [address] capsule Take 1 capsule (40 mg total) by mouth 1 (one) time each day for 10 days. Do not crush or chew. 10 each 12/18/2024 12/29/19 25 ondansetron ODT (ZOFRAN-ODT) 4 mg disintegrating tabletIndications:A bdominal pain, epigastric,Nausea and vomiting, unspecified vomiting type,Urinary tract infection without hematuria, site unspecified Dissolve 1 tablet (4 mg total) on top of the tongue every 8 (eight) hours if needed for nausea for up to 5 days. 15 each 12/18/2024 12/24/19 25 Source Comments (unrecognize d section and content) In the event this informatio n is protected by the Federal Confidentiality of Alcohol and Drug Abuse Patient Records regulations: The Federal rules restrict any use of the information to criminally investigate or prosecute any alcohol or drug abuse patient.[facility] FOR RECORDS PERTAINING TO PATIENTS WHO ARE OR HAVE BEEN ENROLLED IN A CHEMICAL DEPENDENCY/SUBSTANCEABUSE PROGRAM, SOME INFORMATION MAY BE OMITTED. This clinical summary was aggregated from multiple sources. Caution should be exercised in using it in the provision of clinical care. This summary normalizes information from multiple sources, and as a consequence, information in this document may materially change the coding, format and clinical context of patient data. In addition, data may be omitted in some cases. CLINICAL DECISIONS SHOULD BE BASED ON THE PRIMARY CLINICAL RECORDS. [facility]. provides no warranty or guarantee of the accuracy or completeness of information in this document.
== END | disposition home or self-care (01) ==
PROVIDERS: PCP Nurse Practitioner Family; Referring Provider Nurse Practitioner Family; Visit Provider Nurse Practitioner Family
DX: A69.20 Lyme disease, unspecified (principal); A44.0 Systemic bartonellosis; A69.22 Other neurologic disorders in Lyme disease; B60.00 Babesiosis, unspecified; R32 Unspecified urinary incontinence; R35.1 Nocturia; R59.0 Localized enlarged lymph nodes; R41.89 Other symptoms and signs involving cognitive functions and awareness
CPT/HCPCS: 36415; 80053; 81001; 85025; 87077; 87086; 87088; 87186